=== PATIENT | female | born 1950 | race Caucasian/White ===

== ENCOUNTER 2024-12-11 14:12 | Outpatient (CLI) | payer MEDICARE, SELFPAY ==
--- OUTSIDE RECORDS SUMMARY | 2024-12-11 14:24 | XMS_ITS | Clinical Summary ---
Author Organization [facility] Address [address] [place] [address] Care Team Providers Care Baggage Porter Head Name Role Phone Ellen Rowley MD Primary Care Provider [phone] Ashwini Evangelista RN Unavailable [phone] Allergies Active Allergy Reactions Criticality Noted Date Comments Cefadroxil Headache Low 05/29/2013 Has tolerated Zosyn, Augmentin, and Ceftriaxone previously Lactose GI Upset Low 08/25/2023 Medications latanoprost 0.005 % ophthalmic solutionIndicatio ns:glaucoma Place 1 drop into both eyes nightly at bedtime. Indications: glaucoma Active timolol (TIMOPTIC) 0.5 % ophthalmic solution Place 1 drop into both eyes daily. Active atorvastatin (LIPITOR) 10 MG tabletIndications :elevated cholesterol Take 1 tablet (10 mg total) by mouth nightly at bedtime. Indications: elevated cholesterol 90 tablet 1 025 Active bisacodyl (DULCOLAX) [address] 1 suppository (10 mg total) rectally daily as needed for Constipation. 025 Active acetaminophen (TYLENOL) 325 MG tablet Take 2 tablets (650 mg total) by mouth 4 (four) times daily as needed for Pain or Fever. Active senna-docusate (SENOKOT-S) 8.6-50 MG tablet Take 2 tablets by mouth daily. Active nitroglycerin (NITROSTAT) 0.[address] 1 tablet (0.4 mg total) under the tongue every 5 (five) minutes as needed. Active lidocaine (LIDODERM) 5 % Place 1 patch onto the skin daily. Active levothyroxine (SYNTHROID) 137 MCG tablet Take 1 tablet (137 mcg total) by mouth every morning. Active ferrous sulfate, 65 mg elemental, 325 (65 FE) MG tabletIndications :Iron deficiency anemia, unspecified iron deficiency anemia type Take 1 tablet (325 mg total) by mouth 2 (two) times daily. 180 tablet 1 Active Additional Information Patient taking differently:325 mg OralDaily with breakfast, Reported on 12/09/2024 collagenase (SANTYL) ointment Apply topically daily. Active spironolactone (ALDACTONE) 25 MG tablet Take 1 tablet (25 mg total) by mouth daily. Active esomeprazole (NEXIUM) 20 MG packet Take 20 mg by mouth every morning before breakfast. Active metoprolol tartrate (LOPRESSOR) 25 MG tablet Take 1 tablet (25 mg total) by mouth 2 (two) times daily. Active apixaban (ELIQUIS) 5 MG tablet Take 1 tablet (5 mg total) by mouth 2 (two) times daily. 025 2024 Active mupirocin (BACTROBAN) 2 % ointment Apply topically 3 (three) times daily. Active ondansetron (ZOFRAN-ODT) 4 MG disintegrating tablet Take 1 tablet (4 mg total) by mouth. Active PROTONIX 40 MG packet Take 1 packet (40 mg total) by mouth before breakfast. Active nystatin (MYCOSTATIN) powderIndications :Yeast dermatitis Apply topically 3 (three) times daily. 60 g 3 Active loratadine (CLARITIN) 10 MG tabletIndications :allergies Take 1 tablet (10 mg total) by mouth daily. 90 tablet 1 024 2024 Discontinued imipramine (TOFRANIL) 25 MG tabletIndications :Esophageal spasm Take 1 tablet (25 mg total) by mouth nightly at bedtime. at bedtime 90 tablet 024 2024 Discontinued lisinopril (PRINIVIL) 40 MG tabletIndications :altered blood pressure TAKE 1 TABLET BY MOUTH EVERY DAY 90 tablet 025 2024 Discontinued benzonatate (TESSALON) 200 MG capsuleIndication s:Subacute cough Take 1 capsule (200 mg total) by mouth 3 (three) times daily as needed for Cough. 90 capsule 1 025 2024 Discontinued sodium chloride 1 GM tablet Take 1 tablet (1 g total) by mouth 3 (three) times daily. 2024 Discontinued omeprazole (PRILOSEC) 20 MG capsule Take 1 capsule (20 mg total) by mouth daily. 2024 Discontinued apixaban (ELIQUIS) 5 MG tablet Take 1 tablet (5 mg total) by mouth 2 (two) times daily. 2024 collagenase (SANTYL) ointment Apply topically daily. 2024 Discontinued dilTIAZem CD (CARDIZEM CD) 120 MG 24 hr capsule Take 1 capsule (120 mg total) by mouth daily. 2024 Discontinued furosemide (LASIX) 40 MG tablet Take 1 tablet (40 mg total) by mouth daily. 025 2024 metoprolol tartrate (LOPRESSOR) 100 MG tablet Take 1 tablet (100 mg total) by mouth 2 (two) times daily. 2024 Discontinued traZODone (DESYREL) 50 MG tablet Take 1 tablet (50 mg total) by mouth nightly as needed. 025 2024 pantoprazole EC (PROTONIX) 40 MG tablet Take 1 tablet (40 mg total) by mouth daily. 2024 Discontinued miconazole (MICOTIN) 2 % powder Apply topically 2 (two) times daily. 025 2024 Discontinued Active Problems Problem Noted Date Diagnosed Date Slow transit constipation 11/13/2024 Pacemaker 11/12/2024 Complete heart block (CMS/HCC HHS/HCC) Atrial fibrillation, unspecified type (CMS/HCC H HS/HCC) 10/30/2024 Multifocal pneumonia 10/22/2024 Hypocalcemia 10/22/2024 Skin infection at gastrostomy tube site ([facility]) 10/22/2024 Pleural effusion, bilateral 10/22/2024 Pericardial effusion ([facility]) 10/22/2024 Acute kidney injury superimposed on chronic kidn ey disease 10/22/2024 Syncope 10/14/2024 Hyponatremia 10/08/2024 Pressure injury of sacral region, unstageable Generalized weakness 10/01/2024 Anemia 10/01/2024 Moderate malnutrition ([facility]) 09/23/2024 Esophageal necrosis 09/09/2024 Difficulty swallowing 09/04/2024 Esophageal foreign body 09/04/2024 Stage 3a chronic kidney disease 05/21/2024 Stage 2 chronic kidney disease 05/21/2024 Hydronephrosis 04/05/2024 Mycobacteria, 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 Postoperative hypothyroidism 01/19/2024 Senile osteopenia 01/18/2024 Sepsis ([facility]) 10/19/2023 Pneumonia 08/21/2023 Achalasia 08/21/2023 Odynophagia 08/21/2023 Pulmonary nodule 06/09/2023 T2DM (type 2 diabetes mellitus) ([facility] ) 10/27/2022 Postmenopausal osteoporosis 12/31/2021 Colitis 05/12/2021 Recurrent urinary tract infection 05/12/2021 History of total left knee replacement (TKR) Hemorrhoids with complication 05/12/2021 Acute glaucoma of right eye 05/12/2021 Achalasia, esophageal 11/20/2020 Overview (11/20/2020): Added automatically from request for surgery [id number] Abnormal barium swallow 11/20/2020 Overview (11/20/2020): Added automatically from request for surgery [id number] Achalasia of cardia 11/20/2020 Overview (12/02/2024): Added automatically from request for surgery [id number] Graves disease 05/25/2020 Dysphagia 04/17/2020 Overview (12/02/2024): Added automatically from request for surgery [id number] Added automatically from request for surgery [id number] Added automatically from request for surgery [id number] History of total right knee replacement 08/05/19 20 Osteopenia 12/12/2017 Peripheral neuropathy 08/24/2017 Nonproliferative diabetic retinopathy ([facility] /[facility]) 05/01/2017 Lactose intolerance 12/14/2016 Primary hyperparathyroidism ([facility]) 12/14/2016 Leg swelling 11/15/2016 Osteoarthritis of knees, bilateral 02/25/2016 GERD (gastroesophageal reflux disease) 5 Hyperkalemia 06/23/2015 Urine leukocytes 02/21/2014 HTN (hypertension) 05/29/2013 Dyslipidemia, goal LDL below 100 05/29/2013 Resolved Problems Problem Noted Date Diagnosed Date Resolved Date Hyperthyroidism 11/24/2021 04/18/2022 Overview (02/19/2022): Added automatically from request for surgery [id number] Weight loss 11/20/2020 02/19/2022 Overview (11/20/2020): Added automatically from request for surgery [id number] Vitamin D deficiency 07/01/2019 022 Localized osteoporosis 08/21/201805/08 Parathyroid abnormality ([facility]) 12/14/2016 08/19/2020 Knee pain, bilateral 02/16/2016 022 Abscess 06/23/2015 02/19/2022 Diabetes mellitus ([facility]) 08/09/2013 05/08/2023 Hypercalcemia 08/09/2013 08/19/2020 Morbid obesity 05/29/2013 02/22/2021 Encounters Date Type Department Care Team Description 12/11/[address] [phone] Ellen Rowley MD Problem (Heart rate) 12/11/2024 Patient Outreach [facility] [address] [address] Ashwini Evangelista, RN Hospital Follow Up (F/u wk 2) 12/10/2024 Results Follow-Up [address] [phone] Ellen Rowley MD LIPID PANEL, COMPREHENSIVE METABOLIC PANEL 12/09/2024 11:00 AM CDT Laboratory Only [address] [phone] Ellen Rowley MD 12/09/2024 9:20 AM CDT Office Visit [address] [phone] Ellen Rowley MD Diabetes; Feeding Tube Problem (Leaking around feeding tube, wants it look at.) 12/09/2024 Travel 12/06/2024 Scan [employer] INFO SRVCS Scanned, [facility] 12/06/2024 Patient Outreach [address] [phone] Ashwini Evangelista, SANDY Hospital Follow Up (F/u wk 1--LVM x2) 12/04/[address] [phone] Ellen Rowley MD Question 12/03/[address] [phone] Ellen Rowley MD Clarification 12/02/2024 9:20 AM CDT Office Visit [address] [phone] Ellen Rowley MD TCM 12/02/[address] [phone] Ellen Rowley MD Advice 12/02/2024 Travel 12/02/2024 Patient Outreach [address] [phone] Ashwini Evangelista RN Hospital Follow Up (Inpatient f/u with [facility]) 12/01/2024 Scan [facility] INFO SRVCS Scanned, [facility] 11/29/2024 Scan [facility] INFO SRVCS Scanned, [facility] 11/29/[address] [phone] Ellen Rowley MD TCM 11/27/2024 Scan [facility] INFO SRVCS Scanned, [facility] 11/27/2024 Patient Outreach [address] [phone] Ashwini Evangelista RN Hospital Follow Up (Inpatient f/u w/[facility]); ER F/U ([facility] ER 11/26) 11/26/2024 Scan HEALTH INFO SRVCS Scanned, [facility] 11/22/2024 Patient Outreach [address] [phone] Ashwini Evangelista RN Hospital Follow Up (Inpatient f/u w/[facility]) 11/15/2024 Patient Outreach [address] [phone] Ashwini Evangelista RN Hospital Follow Up (Inpatient f/u [facility]) 11/11/2024 Patient Outreach [address] [phone] Ashwini Evangelista RN Hospital Follow Up (TRANSFERRED to [facility] ([facility] Hosp 10/30-11/09; [facility] 11/09-present)) 11/09/2024 Scan [facility] INFO SRVCS Scanned, [facility] 10/31/2024 Patient Outreach [address] [place] [address] Ashwini Evangelista, RN Hospital Follow Up ([facility] Admission notification) 10/30/2024 Scan [facility] INFO SRVCS Scanned, [facility] 10/29/2024 Scan [facility] INFO SRVCS Scanned, [facility] 10/29/2024 Patient Outreach [address] [phone] Ashwini Evangelista, RN TCM ([facility] 10/22-10/28) 10/28/2024 Scan [facility] INFO SRVCS Scanned, [facility] 10/24/[address] [phone] Ellen Rowley MD Orders 10/23/2024 Patient Outreach [address] [phone] Ashwini Evangelista, RN Hospital Follow Up ([facility] admission notification) 10/22/2024 Scan [facility] INFO SRVCS Scanned, [facility] 10/22/[address] [phone] Ellen Rowley MD Information 10/21/2024 Scan [facility] INFO SRVCS Scanned, [facility] 10/21/2024 Patient Outreach [address] [phone] Ashwini Evangelista, RN TCM ([facility] 10/04-10/07) 10/17/2024 Scan [facility] INFO SRVCS Scanned, [facility] 10/17/[address] [phone] Ellen Rowley MD TCM 10/17/[address] [phone] Ellen Rowley MD Information 10/15/2024 Patient Outreach [address] [phone] Ashwini Evangelista RN Hospital Follow Up ([facility] admission notification) 10/14/2024 Scan HEALTH INFO SRVCS Scanned, Doc Med [facility] 10/11/2024 Patient Outreach [address] [phone] Ashwini Evangelista RN Hospital Follow Up (Inpatient f/u [facility]) 09/30/2024 Patient Outreach [address] [phone] Ashwini Evangelista RN Hospital Follow Up (TRANSFERRED to [facility]) from Last 3 Months Immunizations Immunization Administration Dates Next Due Abrysvo Respiratory Syncytia l Virus (RSV) 0.5 mL, PF 07/01/2024 Arexvy Respiratory Syncytial Virus (RSV, adjuvanted) 0.5 mL, PF 05/31/2024 Fluad influenza vaccine, Raman drivalent (aIIV4), Inactivated, adjuvanted, preservative free, 0.5 mL,IM use 09/27/2024,05/09/2022 Fluzone High Dose - >Age 65 (Prefilled Syringe) 05/20/2024,04/18/2023,05/08/2022,2020,05/16/2020,06/01/2019,05/11/2018,1 08/24/2016,04/22/2016 Influenza Adult (Generic) 04/18/2023,05/2021,05/16/2020,2018,06/05/2015,08/02/2014,06/22/2013 MODERNA COVID-19 (12+), MRNA , LNP-S, PF, 50 MCG/0.5 ML (SPIKEVAX) 05/20/2024 PFIZER COVID-19 (ORIGINAL FORMULATION, PURPLE CAP) mRNA, LNP-S, PF, 30 MCG/0.3 ML DOSE 10/10/2020,09/18/2020 Pneumococcal (Pneumovax 23) 04/01/2020 Pneumococcal (Prevnar 20) 07/01/2024 Shingrix 05/20/2024,02/27/2024 Family History Medical History Relation Comments Breast Cancer Cousin Maternal; age 60 Heart Disease Father Hypertension Father No Known Problems Maternal Aunt No Known Problems Maternal Uncle Alzheimers Mother No Known Problems Paternal Aunt Diabetes Paternal Uncle Relation Status Comments Cousin Father Maternal Aunt Maternal Uncle Mother Paternal Aunt Paternal Uncle Social History Tobacco Use Types Packs/Day Years Used Date Smoking Tobacco: Never Passive Smoke Exposure: Never Smokeless Tobacco: Never Tobacco Cessation:Counseling Given: Yes Alcohol Use Standard Drinks/Week Comments No 0 (1 standard drink = 0.6 oz pur e alcohol) OASIS D0700: Social Isolation Answer Da te Recorded Frequency of experiencing loneliness or isolatio n Never 11/30/2023 OASIS A1250: Transportation Answer Date Recorded Lack of Transportation (Medical) No 11/30/2023 Lack of Transportation (Non-Medical) No 11/30/2023 Patient Unable or Declines to Respond No 11/30/2023 OASIS B1300: Health Literacy Answer Filippo e Recorded Frequency of needing help to read materials from doctor or pharmacy Never 11/30/2023 [facility] Utilities Answer Date Recorded In the past 12 months has e [employer], [employer], oil, or water [employer] threatened to shut off services in your home? No 09/05/2024 Humiliation, Afraid, Rape, and Kick questionnair e Answer Date Recorded Within the last year, have y ou been afraid of your partner or ex-partner? No 09/05/2024 Within the last year, have y ou been humiliated or emotionally abused in other ways by your partner or ex-partner? No Within the last year, have y ou been kicked, hit, slapped, or otherwise physically hurt by your partner or ex-partner? No 09/05/2024 Within the last year, have y ou been raped or forced to have any kind of sexual activity by your partner or ex-partner? No 09/05/2024 Social Connection and Isolation Panel [NHANES] A nswer Date Recorded In a typical week, how many times do you talk on the phone with family, friends, or neighbors? Once a week 10/19/19 24 How often do you get togethe r with friends or relatives? Once a week 10/19/2023 How often do you attend chur ch or spiritism services? Never 10/19/2023 Do you belong to any clubs o r organizations such as mosque groups, unions, fraternal or athletic groups, or school groups? No 10/19/2023 How often do you attend meet ings of the clubs or organizations you belong to? 1 to 4 times per year 10/19/2023 Are you , , di vorced, , never , or living with a partner? 10/19/2023 AUDIT-C Answer Date Recorded Q1: How often do you have a drink containing alcohol? Never 10/19/2023 Q2: How many drinks containi ng alcohol do you have on a typical day when you are drinking? Patient does not drink Q3: How often do you have si x or more drinks on one occasion? Never 10/19/2023 Overall Financial Resource Strain (CARDIA) Answe r Date Recorded How hard is it for you to pa y for the very basics like food, housing, medical care, and heating? Not hard at all 09/04/2024 PHQ-2 Answer Date Recorded Patient Health Questionnaire-2 Score 0 12/09/2024 [facility] [place] of Occupat ional Health - Occupational Stress Questionnaire Answer Date Recorded Do you feel stress - tense, restless, nervous, or anxious, or unable to sleep at night because your mind is troubled all the time - these days? Not at all 10/19/2023 Hunger Vital Sign Answer Date Recorded Within the past 12 months, y ou worried that your food would run out before you got the money to buy more. Never true 09/05/19 25 Within the past 12 months, t he food you bought just didn't last and you didn't have money to get more. Never true 09/05/2024 PRAPARE - Transportation Answer Date Re corded In the past 12 months, has l ack of transportation kept you from medical appointments or from getting medications? No 12/2024 In the past 12 months, has l ack of transportation kept you from meetings, work, or from getting things needed for daily living? No 09/05/2024 Housing Stability Vital Sign Answer Filippo e Recorded In the last 12 months, was t here a time when you were not able to pay the mortgage or rent on time? No 10/19/2023 In the last 12 months, how many places have you lived? 2 10/19/2023 In the last 12 months, was t here a time when you did not have a steady place to sleep or slept in a long-term (including now)? No 10/19/2023 Housing Stability Vital Sign Answer Filippo e Recorded In the last 12 months, was t here a time when you were not able to pay the mortgage or rent on time? No 09/05/2024 In the past 12 months, how m any times have you moved where you were living? 1 09/05/2024 At any time in the past 12 m [facility], were you homeless or living in a long-term (including now)? No 09/05/2024 Comments No Sex and Gender Information Value Date Recorded Sex Assigned at Female 08/27/2024 10:01 AM [facility] Legal Sex Female 4:20 PM CDT Gender Identity Not on file Sexual Orientation Not on file Last Filed Vital Signs Vital Sign Reading Time Taken Comments Blood Pressure 103/69 12/09/2024 9:08 AM CDT Pulse 95 12/09/2024 9:08 AM CDT Temperature 36.6 C (97.8 F) 12/09/2024 9:08 AM CDT Respiratory Rate 18 12/09/2024 9:08 AM CDT Oxygen Saturation 100% 12/09/2024 9:08 AM CDT Inhaled Oxygen Concentration - - Weight 64.7 kg (142 lb 11.2 oz) 12/09/2024 9:08 AM CDT Height 160 cm (5' 3 ) 09/04/2024 3:12 PM [facility] Body Mass Index 25.28 09/04/2024 3:12 PM [facility] Plan of Treatment Upcoming Encounters Date Type Department Care Team (Late st Contact Info) Description 01/20/2025 12:00 PM CDT Treatment [facility] [place] [address] Ellen Rowley MD [address] [place] [address] 03/11/2025 9:40 AM CDT Office Visit [facility] Family [facility] [address] [place] [address] Ellen Rowley MD [address] [place] [address] Health Maintenance Due Date Last Done Comments DTaP, Tdap and Td Vaccines (1 - Tdap) 1969 Annual Medicare Wellness Visit 2013 COVID-19 Vaccine ( season) 2024 05/20/2024, 05/20/2024, 04/18/2023, Additional history exists Kidney Health Evaluation 02/12/2025 02/13/2024 Diabetes: Retinopathy Eye Exam 04/15/2025 04/15/2024, 10/10/2022, 03/31/2022, Additional history exists Hemoglobin A1C 06/04/2025 12/02/2024, 08/31, 08/27/2024, Additional history exists Lipid Panel 12/09/2025 12/09/2024, 10/31, 02/15/2024, Additional history exists Hepatitis C Completed 02/22/2018 Colorectal Cancer Screening Colonoscopy (10 Years) Discontinued 07/29/2019, 07/29/2019 Zoster Vaccines Completed 05/20/2024, 02/27/2024 Pneumococcal Vaccine: 50+ Years Completed 07/01/2024, 04/01/2020 RSV Immunization or 60+ Years Completed 07/01/2024, 05/31/2024 Dexa Scan (General) Completed 07/11/2024, 05/19/2022, 09/02/2020, Additional history exists PHQ-2 (Physician [place]) Completed 12/09/2024 Meningococcal B Vaccine Aged Out No l onger eligible based on patient's age to complete this topic Meningococcal Vaccine Aged Out No venkat iris eligible based on patient's age to complete this topic RSV Immunizations Under 20 Months Aged Out No longer eligible based on patient's age to complete this topic Goals Goal Patient Goal Type Associated Problems Recent Progress Patient-Stated? Author Health - patient able to perform ADLs independently Lifestyle On track(2023 11:15 AM CDT) Neelam Garcia RN Establish Plan for Symptom Monitoring Lifestyle On track(2024 1:59 PM CDT) No Ashwini Evangelista RN Consistently take medications as Prescribed Lifestyle On track(2024 1:59 PM CDT) No Ashwini Evangelista RN Medical Devices Implanted Type Area Petal Cutter Device Identifier Shelf Expiration Date Model / Serial / Lot Knee Procedures Procedure Name Priority Date/Time Associated Diagnosis Comments COMPREHENSIVE METABOLIC PANEL Routine 12/09/2024 9:49 AM CDT Stage 3a chronic kidney disease ([facility]/HCC) LIPID PANEL Routine 12/09/2024 9:49 AM CDT Mixed hyperlipidemia COLLECTION VENOUS BLOOD VENIPUNCTURE Routine 12/09/2024 Routine general medical examination at a [facility] care facility HEMOGLOBIN, GLYCOSYLATED Routine 12/02/2024 Type 2 diabetes mellitus with stage 2 chronic kidney disease, without long-term current use of insulin ([facility]/HCC HHS/HCC) COLLECT.CAPILLARY (FNGR,HEEL,EAR) Routine 12/02/2024 Type 2 diabetes mellitus with stage 2 chronic kidney disease, without long-term current use of insulin ([facility]/HCC HHS/HCC) BONE DENSITY/DEXA Routine 07/11/2024 2:0 3 PM [facility] Age-related osteoporosis without current pathological fracture DIABETIC RETINOPATHY EXAM (POSITIVE)(SCAN ORDER) Routine 04/15/2024 COLONOSCOPY/EGD GENERIC (SCAN ORDER) Routine 07/29/2019 HEPATITIS C RNA W/ REFLX GENOTYPE Routine 02/22/2018 10:33 AM CDT from Last 3 Months or Most Recently Relevant to Health Maintenance Results * (ABNORMAL) COMPREHENSIVE METABOLIC PANEL (12/09/2024 9:49 AM CDT) Pathologist [facility] SODIUM S/P/B 139 136 - 145 MMOL/L 12/09/2024 4:14 PM CDT [facility] POTASSIUM S/P/B 5.0 3.5 - 5.1 MMOL/L 12/09/2024 4:14 PM T [facility] CHLORIDE S/P/B 101 98 - 107 MMOL/L 12/09/2024 4:14 PM CDT [facility] CO2 30.2 21 - 32 MMOL/L 12/09/2024 4:14 PM T [facility] GLUCOSE 143(H) 70 - 99 MG/DL 12/09/2024 4:14 PM CDT [facility] BUN 83(H) 7 - 18 MG/DL 12/09/2024 4:14 PM T [facility] CREATININE S/P/B 1.13(H) 0.55 - 1.02 MG/DL 12/09/2024 4:14 PM T [facility] CALCIUM S/P/B 8.6 8.4 - 10.5 MG/DL 12/09/2024 4:14 PM CDT [facility] BILIRUBIN TOTAL S/P/B 0.3 0.2 - 1.0 MG/DL 12/09/2024 4:14 PM T [facility] ALKALINE PHOSPHATASE S/P/B 290(H) 55 - 142 U/L 12/09/2024 4:14 PM T [facility] AST 54(H) 15 - 37 U/L 12/09/2024 4:14 PM CDT [facility] ALT 64(H) 14 - 59 U/L 12/09/2024 4:14 PM CDT [facility] TOTAL PROTEIN S/P/B 7.8 6.4 - 8.2 G/DL 12/09/2024 4:14 PM [facility] ALBUMIN S/P/B 3.1(L) 3.4 - 5.0 G/DL 12/09/2024 4:14 PM T [facility] ANION GAP 7.8 5 - 15 MMOL/L 12/09/2024 4:14 PM CDT [facility] Comment:REFERENCE RANGE NOT ESTABLISHED OSMOLALITY (CALC) 316 MOSM/KG 025 4:14 PM CDT [facility] Comment:REFERENCE RANGE NOT ESTABLISHED GFR ESTIMATE 50(L) >90 ML/MIN/1. 73 M2 12/09/2024 4:14 PM T [facility] GFR NOTES GFR REFERENCE S: 12/09/2024 4:14 PM CDT [facility] Comment: THE ESTIMATED GFR IS CALCULATED USING THE 2020 CKD-EPI EQUATION. THE FOLLOWING CATEGORIES FOR GRADING RENAL FUNCTION ARE RECOMMENDED BY THE INTERNATIONAL SOCIETY OF NEPHROLOGY (KDIGO 2012 CLINICAL PRACTICE GUIDELINE). G1,NORMAL OR HIGH: >89 ml/min/1.73 m2 G2,MILDLY DECREASED: 60-89 ml/min/1.73 m2 G3A,MILDLY TO MODERATELY DECREASED: 45-59 ml/min/1.73 m2 G3B,MODERATELY TO SEVERELY DECREASED: 30-44 ml/min/1.73 m2 G4,SEVERELY DECREASED: 15-29 ml/min/1.73 m2 G5,KIDNEY FAILURE: <15 ml/min/1.73 m2 12/09/2024 9:49 AM CDT Ellen Rowley MD LABORATORY Final Result [facility] [address] [place] [address], * LIPID PANEL (12/09/2024 9:49 AM CDT) CHOLESTEROL 130 <200 MG/DL 12/09/2024 4:14 PM CDT [facility] TRIGLYCERIDES 87 <150 MG/DL 12/09/2024 4:14 PM CDT [facility] HDL 52 >40 MG/DL 12/09/2024 4:14 PM CDT [facility] LDL-C 61 <100 MG/DL 12/09/2024 4:14 PM CDT [facility] VLDL CALCULATION 17 5 - 28 MG/DL 12/09/2024 4:14 PM CDT [facility] CHOL/HDL RATIO 2.5 0.0 - 4.0 12/09/2024 4:14 PM CDT [facility] LDL/HDL 1.2 0.41 - 2.13 12/09/2024 4:14 PM CDT [facility] NON HDL CHOLESTEROL 78 <140 MG/DL 12/09/2024 4:14 PM CDT [facility] [id number]|2024-12-11 14:24:00|2024-12-11 14:23:00|XMS_ITS|BKG DAEMON|External Medical Summaries|[id number]|" Encounter Summary Created on: December 11, 2024 Willow Najera : 1950 Sex: Female Author Organization [facility] Address [address] [place] [address] Care Team Providers Care Baggage Porter Head Name Role Phone Ellen Rowley MD Primary Care Provider [phone] Ashwini Evangelista RN Unavailable [phone] Reason for Visit * Reason Onset Date Comments Problem 12/11/2024 Heart rate Encounter Details Date Type Department Care Team (Late st Contact Info) Description 12/11/2024 Telephone [facility] Medical [id number] [place] [address] Ellen Rowley MD [address] [place] [address] Problem (Heart rate) Social History Tobacco Use Types Packs/Day Years Used Date Smoking Tobacco: Never Passive Smoke Exposure: Never Smokeless Tobacco: Never Alcohol Use Standard Drinks/Week Comments No 0 (1 standard drink = 0.6 oz pur e alcohol) OASIS D0700: Social Isolation Answer Da te Recorded Frequency of experiencing loneliness or isolatio n Never 11/30/2023 OASIS A1250: Transportation Answer Date Recorded Lack of Transportation (Medical) No 11/30/2023 Lack of Transportation (Non-Medical) No 11/30/2023 Patient Unable or Declines to Respond No 11/30/2023 OASIS B1300: Health Literacy Answer Filippo e Recorded Frequency of needing help to read materials from doctor or pharmacy Never 11/30/2023 [facility] Utilities Answer Date Recorded In the past 12 months has [facility] [employer], oil, or water [employer] threatened to shut off services in your home? No 09/05/2024 Humiliation, Afraid, Rape, and Kick questionnair e Answer Date Recorded Within the last year, have y ou been afraid of your partner or ex-partner? No 09/05/2024 Within the last year, have y ou been humiliated or emotionally abused in other ways by your partner or ex-partner? No Within the last year, have y ou been kicked, hit, slapped, or otherwise physically hurt by your partner or ex-partner? No 09/05/2024 Within the last year, have y ou been raped or forced to have any kind of sexual activity by your partner or ex-partner? No 09/05/2024 Social Connection and Isolation Panel [NHANES] A nswer Date Recorded In a typical week, how many times do you talk on the phone with family, friends, or neighbors? Once a week 10/19/19 How often do you get togethe r with friends or relatives? Once a week 10/19/2023 How often do you attend chur or spiritism services? Never 10/19/2023 Do you belong to any clubs o r organizations such as mosque groups, unions, fraternal or athletic groups, or school groups? No 10/19/2023 How often do you attend meet ings of the clubs or organizations you belong to? 1 to 4 times per year 10/19/2023 Are you , , di vorced, , never , or living with a partner? 10/19/2023 AUDIT-C Answer Date Recorded Q1: How often do you have a drink containing alcohol? Never 10/19/2023 Q2: How many drinks containi ng alcohol do you have on a typical day when you are drinking? Patient does not drink Q3: How often do you have si x or more drinks on one occasion? Never 10/19/2023 Overall Financial Resource Strain (CARDIA) Answe r Date Recorded How hard is it for you to pa y for the very basics like food, housing, medical care, and heating? Not hard at all 09/04/2024 PHQ-2 Answer Date Recorded Patient Health Questionnaire-2 Score 0 12/09/2024 [facility] of Occupat ional Health - Occupational Stress Questionnaire Answer Date Recorded Do you feel stress - tense, restless, nervous, or anxious, or unable to sleep at night because your mind is troubled all the time - these days? Not at all 10/19/2023 Hunger Vital Sign Answer Date Recorded Within the past 12 months, y ou worried that your food would run out before you got the money to buy more. Never true 09/05/19 25 Within the past 12 months, t he food you bought just didn't last and you didn't have money to get more. Never true 09/05/2024 PRAPARE - Transportation Answer Date Re corded In the past 12 months, has l ack of transportation kept you from medical appointments or from getting medications? No 12/2024 In the past 12 months, has l ack of transportation kept you from meetings, work, or from getting things needed for daily living? No 09/05/2024 Housing Stability Vital Sign Answer Filippo e Recorded In the last 12 months, was t here a time when you were not able to pay the mortgage or rent on time? No 10/19/2023 In the last 12 months, how many places have you lived? 2 10/19/2023 In the last 12 months, was t here a time when you did not have a steady place to sleep or slept in a long-term (including now)? No 10/19/2023 Housing Stability Vital Sign Answer Filippo e Recorded In the last 12 months, was t here a time when you were not able to pay the mortgage or rent on time? No 09/05/2024 In the past 12 months, how m any times have you moved where you were living? 1 09/05/2024 At any time in the past 12 m [facility], were you homeless or living in a long-term (including now)? No 09/05/2024 Comments No Sex and Gender Information Value Date Recorded Sex Assigned at Female 08/27/2024 10:01 AM DIRECTOR OF FAMILY SERVICE CENTER Legal Sex Female 4:20 PM CDT Gender Identity Not on file Sexual Orientation Not on file documented as of this encounter Functional Status * Are you deaf or do you have serious difficulty hearing Answer Date of Assessment Author Status No 09/04/2024 10:58 PM Vicky Davies RN Active * Are you blind or do you have serious difficulty seeing, even when wearing glasses? Answer Date of Assessment Author Status No 09/04/2024 10:58 PM Vicky Davies RN Active * Do you have serious difficulty walking or climbing stairs? Answer Date of Assessment Author Status Yes 09/04/2024 10:58 PM Vicky Davies RN Active * Do you have difficulty dressing or bathing? Answer Date of Assessment Author Status No 09/04/2024 10:58 PM Vicky Davies RN Active * Because of a physical, mental, or emotional condition, do you have difficulty doing errands alone such as visiting a doctor's office or shopping? Answer Date of Assessment Author Status No 09/04/2024 10:58 PM Vicky Daives RN Active documented as of this encounter Mental Status * Because of a physical, mental, or emotional condition, do you have serious difficulty concentrating, remembering, or making decisions? Answer Entry Date Author Status No 09/04/2024 10:58 PM Vicky Davies RN Active documented in this encounter Progress Notes * Ashwini Evangelista RN - 12/11/2024 1:51 PM CDT Follow up call completed. Note in progress Heart rate: Spouse reporting that they just left the endocrine office and was told to follow up with pcp regarding elevated heart rate. Reports she was running 108-116 in office. Reports that she hasbeen running high 90's to low 100's. Denies cp,dizziness, or palpitations. Reports that her metoprolol dose was stopped on 12/02/24. Spouse/patient questioning if she should restart medication--PLEASE ADVISE Previously taking metoprolol 25mg BID documented in this encounter Plan of Treatment Upcoming Encounters Date Type Department Care Team (Late st Contact Info) Description 01/20/2025 12:00 PM CDT Treatment [facility] Infusion Services at [facility] [address] Ellen Rowley MD [address] [place] [id number] 03/11/2025 9:40 AM CDT Office Visit [facility] Medical Group Family Medicine - [address] [place] [phone] Ellen Rowley MD [address] [place] [address] documented as of this encounter Goals Goal Patient Goal Type Associated Problems Recent Progress Patient-Stated? Author Health - patient able to perform ADLs independently Lifestyle On track(2023 11:15 AM CDT) No Neelam Saleh RN Establish Plan for Symptom Monitoring Lifestyle On track(2024 1:59 PM CDT) No Ashwini Evangelista RN Consistently take medications as Prescribed Lifestyle On track(2024 1:59 PM CDT) No Ashwini Evangelista, RN documented as of this encounter Visit Diagnoses Not on filedocumented in this encounter Additional Health Concerns Assessment Noted Time PHQ-9 Depression Total Score: 1 02/26/20 22 1:57 PM CDT documented as of this encounter Care Teams Baggage Porter Head Relationship Specialty Start Date End Date Ellen Rowley MD [address] [place] [address] PCP - General FAMILY PRACTICE 01/28/22 Ashwini Evangelista, RN [address] [facility] [address] [place] [address] Registered Nurse CARE MANAGEMENT 09/05/24 documented as of this encounter "
--- OUTSIDE RECORDS SUMMARY | 2024-12-11 14:24 | XMS_ITS | Encounter Summary ---
Author Organization [facility] Address [address] [place] [address] Care Team Providers Care Escalator Mechanic Name Role Phone Ellen Rowley MD Primary Care Provider [phone] Ashwini Evangelista RN Unavailable [phone] Encounter Details Date Type Department Care Team (Latest Contact Info) Description 12/06/2024 Scan [facility] Scanned, Doc Med Group Social History Tobacco Use Types Packs/Day Years [...] No 11/30/2023 OASIS B1300: Health Literacy Answer Fliippo e Recorded Frequency of needing help to read materials from doctor or pharmacy Never 11/30/2023 [facility] Utilities Answer Date Recorded In the past 12 months has e [employer], gas, oil, or water [employer] threatened to shut off services in your [...] often do you attend chur ch or judaism services? Never 10/19/2023 Do you belong to any clubs o r organizations such as pentecostalism groups, unions, fraternal or athletic groups, or [...] Recorded Patient Health Questionnaire-2 Score 0 12/09/2024 [facility] [place] of Occupat ional Health - Occupational Stress [...] place to sleep or slept in a nursing home (including now)? No 10/19/2023 Housing Stability Vital Sign Answer Filippo e Recorded In the last 12 months, was t here a time when you were not able to pay the mortgage or rent on time? No 09/05/2024 In the past 12 months, how m any times have you moved where you were living? 1 09/05/2024 At any time in the past 12 m [facility], were you homeless or living in a nursing home (including now)? No 09/05/2024 Comments No Sex and Gender Information Value Date Recorded Sex Assigned at Female 08/27/2024 10:01 AM TOOL DESIGN CHECKER Legal Sex Female 4:20 PM CDT Gender [...] 10:58 PM Vicky Davies RN Active * Over the past 2 weeks, how often have you been bothered by any of the following problems? Question Answer Date of Assessment Author Status Little interest or pleasure in doing things Not at all 12/09/2024 9:13 AM CDT Nii Jacobsen MA Active Feeling down, depressed, or hopeless Not at all 12/09/2024 9:13 AM CDT Vanessa Jacobsen MA Active Patient Health Questionnaire-2 Score 0 12/09/2024 9:13 AM CDT Violet Jacobsen MA Active * If you checked off any problems on this questionnaire so far, Question Answer Date of Assessment Author Status How difficult have these problems made it for you to do your work, take care of things at home, or get along with other people? Not difficult at all 12/09/2024 9:13 AM CDT Nii Jacobsen MA Active documented as of this encounter Mental Status * Because of a physical, mental, or emotional condition, do you have serious difficulty concentrating, remembering, or making decisions? Answer Entry Date Author Status No 09/04/2024 10:58 PM Vicky Davies RN Active documented in this encounter Plan of Treatment Upcoming Encounters Date Type Department Care Team (Late st Contact Info) Description 01/20/2025 12:00 PM CDT Treatment [facility] [place] [address] Ellen Rowley MD [facility] [place], [place] [id number] 03/11/2025 9:40 AM CDT [facility] Family Medicine - [place] [address] [place] [phone] Ellen Rowley MD [address] [place] [address] documented as of this encounter Goals Goal Patient Goal Type Associated Problems Recent Progress Patient-Stated? Author Health - patient able to perform ADLs independently Lifestyle On track(2023 11:15 AM CDT) No Neelam Saleh RN Establish Plan for Symptom Monitoring Lifestyle On track(2024 1:59 PM CDT) No Ashwini Evangelista RN Consistently take medications as Prescribed Lifestyle On track(2024 1:59 PM CDT) No Ashwini Evangelista, SANDY documented as of this encounter Visit Diagnoses Not on filedocumented in this encounter Additional Health Concerns Assessment Noted Time PHQ-9 Depression Total Score: 1 02/26/20 22 1:57 PM CDT documented as of this encounter Care Teams Escalator Mechanic Relationship Specialty Start Date End Date Ellen Rowley MD [address] [place] [address] PCP - General FAMILY PRACTICE 01/28/22 Ashwini Evangelista, RN [address] [facility] [address] [place] [address] Registered Nurse CARE MANAGEMENT 09/05/24 documented as of this encounter
--- OUTSIDE RECORDS SUMMARY | 2024-12-11 14:24 | XMS_ITS | Encounter Summary ---
Author Organization [facility] Address [address] [place] [address] Care Team Providers Care Chain Sales Consultant Name Role Phone Ez Saenz DO Unavailable [phone] Ashwini Evangelista RN Unavailable [phone] Cecil Beckett MD Primary Care Provider [phone] Ellen Rowley MD Primary Care Provider [phone] Ashwini Evangelista RN Unavailable [phone] Ashwini Evangelista RN Unavailable [phone] Annabel Borden RN Unavailable [phone] Ashwini Evangelista RN Unavailable [phone] Encounter Details Date Type Department Care Team (Late st Contact Info) Description 05/18/2020 Prep for Procedure [facility] One Day [facility] [place], [place] [id number] Lon Christian MD [address] [facility] [place] [address] [place] [id number] Social History Tobacco Use Types Packs/Day Years Used Date Smoking Tobacco: Never Smokeless Tobacco: Never Alcohol Use Standard Drinks/Week Comments No 0 (1 standard drink = 0.6 oz pur e alcohol) AUDIT-C Answer Date Recorded Frequency of Alcohol Consumption Never 06/19/2019 Average Number of Drinks Not on file 019 Frequency of Binge Drinking Not on file 06/01 PHQ-2 Answer Date Recorded PHQ-2 Score 0 08/29/2019 Comments No Sex and Gender Information Value Date Recorded Sex Assigned at Female 08/27/2024 10:01 AM SUPERVISOR AIRCRAFT MAINTENANCE Legal Sex Female 4:20 PM CDT Gender Identity Not on file Sexual Orientation Not on file COVID-19 Exposure Response Date Recorded In the last month, have you been in contact with someone who was confirmed or suspected to have Coronavirus / COVID-19? No / Unsure 05/21/2020 6:52 AM CDT documented as of this encounter Plan of Treatment Upcoming Encounters Date Type Department Care Team (Late st Contact Info) Description 01/20/2025 12:00 PM CDT Treatment [facility] [place] [address] Ellen Rowley MD [address] [place], [place] [id number] 03/11/2025 9:40 AM CDT Office Visit [facility] Medical Group Family Medicine - [place] [address] [place] [address] Ellen Rowley MD [address] [place], [place] [phone] documented as of this encounter Results * PRE-SURGICAL/PRE-PROCEDURE CORONAVIRUS (COVID 19) (05/18/2020 11:58 AM CDT) Pathologist [facility] CORONAVIRUS SARS COV 2 PCR (RESP) NOT DETECTED NOT DETECTED 05/19/2020 6:21 PM CDT [facility] Comment: A Not Detected (negative) test result for this test means that SARS- CoV-2 RNA was not present in the specimen above the limit of detection. A negative result does not rule out the possibility of COVID-19 and should not be used as the sole basis for treatment or patient management decisions. If COVID-19 is still suspected, based on exposure history together with other clinical findings, re-testing should be considered in consultation with public health authorities. Laboratory test results should always be considered in the context of clinical observations and epidemiological data in making a final diagnosis and patient management decisions. Please review the Fact Sheets and FDA authorized labeling available for health care providers and patients using the following websites: https://[email or web address]/home/Covid-19/HCP/NAAT/fact-sheet2 https://[email or web address]/home/Covid-19/Patients/NAAT/ fact-sheet2 This test has been authorized by the FDA under an Emergency Use Authorization (EUA) for use by authorized laboratories. Due to the current public health emergency, [facility] is receiving a high volume of samples from a wide variety of swabs and media for COVID-19 testing. In order to serve patients during this public health crisis, samples from appropriate clinical sources are being tested. Negative test results derived from specimens received in non-commercially manufactured viral collection and transport media, or in media and sample collection kits not yet authorized by FDA for COVID-19 testing should be cautiously evaluated and the patient potentially subjected to extra precautions such as additional clinical monitoring, including collection of an additional specimen. Methodology: Nucleic Acid Amplification Test (NAAT) includes RT-PCR or TMA Additional information about COVID-19 can be found at the [facility] website: www.[employer].MyClean/Covid19. Test performed at [facility] [id number] [place] [phone] Director: RIDGE HARRIS DO,MPH FIRST TEST YES 05/18/2020 2:27 PM CDT [facility] EMPLOYED IN HEALTHCARE NO 05/18/2020 2:27 PM CDT [facility] SYMPTOMATIC DEFINED BY CDC NO 05/18/2020 2:27 PM CDT [facility] DATE OF SYMPTOM ONSET NO 05/18/2020 2:47 PM CDT [facility] HOSPITALIZATION STATUS NO 05/18/2020 2:27 PM CDT [facility] PATIENT IN ICU NO 05/18/2020 2:27 PM CDT [facility] RESIDENT OF [facility] UNKNOWN 05/18/2020 2:27 PM CDT [facility] UNKNOWN 05/18/2020 2:47 PM CDT [facility] PATIENT'S RACE WHITE OR 05/18/2020 2:27 PM CDT [facility] ETHNICITY NONHISPANIC 05/18/2020 2:27 PM CDT [facility] SOURCE (QST) NASOPHARYNGEAL SWAB 05/18/2020 2:27 PM CDT [facility] NASOPHARYNGEAL SWAB / Unknown 05/18/2020 11:58 AM CDT us Lon Christian MD MICROBIOLOGY - GENERAL ORDERABLE S Final Result Performing Organization Address City/State/[facility] Co de Phone Number [facility] [address] [place] [address], [facility] [id number] [place] [address], documented in this encounter Visit Diagnoses Diagnosis Dysphagia- Primary Dysphagia, unspecified documented in this encounter Additional Health Concerns Infection Onset Date Last Indicated Resolved Time COVID-19 Rule Out 05/18/2020 05/18/2020 05/19/2020 6:21 PM CDT COVID-19 Rule Out 11/11/2020 11/11/2020 11/11/2020 2:22 PM CDT COVID-19 Rule Out 11/11/2020 11/11/2020 11/11/2020 7:50 PM CDT COVID-19 Confirmed 11/11/2020 11/11/2020 12:34 AM CDT COVID-19 Rule Out 08/22/2023 08/22/2023 08/22/2023 9:05 AM SUPERVISOR AIRCRAFT MAINTENANCE Tuberculosis Rule-Out 08/22/2023 08/22/20232023 3:50 PM SUPERVISOR AIRCRAFT MAINTENANCE COVID-19 Rule Out 10/19/2023 10/19/2023 10/19/2023 10:09 AM CDT COVID-19 Rule Out 10/19/2023 10/19/2023 10/19/2023 2:22 PM CDT COVID-19 Rule Out 10/20/2023 10/20/2023 10/20/2023 5:06 PM CDT Rhinovirus 10/20/2023 10/20/2023 10/30/2023 12:3 2 AM CDT COVID-19 Rule Out 11/17/2023 11/17/2023 11/17/2023 1:22 PM CDT documented as of this encounter Care Teams Chain Sales Consultant Relationship Specialty Start Date End Date Ez Saenz DO PCP - Med Group - [facility] Attributed Provider 09/28/18 07/31/20 Cecil Beckett MD [address] [facility] [address] [place], [place] [id number] PCP - General FAMILY PRACTICE 09/06/19 01/27/22 Ellen Rowley MD [address] [place] [address] PCP - General FAMILY PRACTICE 01/28/22 Ashwini Evangelista, RN [address] [facility] [address] [place] [address] Day Care Aide (Ambulatory) REGISTERED NURSE 08/09/19 Ashwini Evangelista, RN [address] [facility] [address] [place] [address] Registered Nurse CARE MANAGEMENT 08/22/23 09/20/23 Ashwini Evangelista RN [address] [facility] [address] [place] [address] Registered Nurse CARE MANAGEMENT 10/23/23 11/05/23 Annabel Borden, RN [address] [place] [address] Day Care Aide (Ambulatory) REGISTERED NURSE 04/05/24 Ashwini Evangelista, RN [address] [address] Registered Nurse CARE MANAGEMENT 09/05/24 documented as of this encounter
--- OUTSIDE RECORDS SUMMARY | 2024-12-11 14:24 | XMS_ITS | Encounter Summary ---
Author Organization [facility] Healthcare Address [address] [place] [address] Care Team Providers Care Ground Control Approach Technician Name Role Phone Ellen Rowley MD Primary Care Provider [phone]- [phone] Encounter Details Date Type Department Care Team (Late st Contact Info) Description 11/11/2024 Results Follow-Up [facility] Medical [facility] Post Acute Care [address] [phone] Jacob Cardona MD [address] [place] [id number] Social History Tobacco Use Types Packs/Day Years Used Date Smoking Tobacco: Never Passive Smoke Exposure: Never Smokeless Tobacco: Never Alcohol Use Standard Drinks/Week Comments Not Currently 0 (1 standard drink = 0.6 oz pur e alcohol) [facility] Utilities Answer Date Recorded In the past 12 months has [employer], [employer], oil, or water [facility] [facility] threatened to shut off services in your home? No 10/31/2024 Social Connection and Isolat ion Panel [NHANES] Answer Date Recorded In a typical week, how many times do you talk on the phone with family, friends, or neighbors? More than three times a week 10/31/2024 How often do you get togethe r with friends or relatives? More than three times a week 10/31/2024 How often do you attend chur ch or mormon services? Never 10/31/2024 Do you belong to any clubs o r organizations such as shinto groups, unions, fraternal or athletic groups, or school groups? No 10/31/2024 How often do you attend meet ings of the clubs or organizations you belong to? Never 10/31/2024 Are you , , di vorced, , never , or living with a partner? 10/31/2024 AUDIT-C Answer Date Recorded Q1: How often do you have a drink containing alcohol? Never 10/31/2024 Q2: How many drinks containi ng alcohol do you have on a typical day when you are drinking? Patient does not drink Q3: How often do you have si x or more drinks on one occasion? Never 10/31/2024 Overall Financial Resource Strain (CARDIA) Answe r Date Recorded How hard is it for you to pa y for the very basics like food, housing, medical care, and heating? Not hard at all 10/31/2024 PHQ-2 Answer Date Recorded PHQ-2 Total Score (If total score is 3 or more points, staff should administer the PHQ-9) 0 10/31/2024 Hunger Vital Sign Answer Date Recorded Within the past 12 months, y ou worried that your food would run out before you got the money to buy more. Never true 11/01/19 25 Within the past 12 months, t he food you bought just didn't last and you didn't have money to get more. Never true 10/31/2024 PRAPARE - Transportation Answer Date Re corded In the past 12 months, has l ack of transportation kept you from medical appointments or from getting medications? No 09/2024 In the past 12 months, has l ack of transportation kept you from meetings, work, or from getting things needed for daily living? No 10/31/2024 PHQ-9 Answer Date Recorded PHQ-9 Total Score 2 10/31/2024 Housing Stability Vital Sign Answer Filippo e Recorded In the last 12 months, was t here a time when you were not able to pay the mortgage or rent on time? No 11/05/2024 In the past 12 months, how m any times have you moved where you were living? 0 11/05/2024 At any time in the past 12 m [facility], were you homeless or living in a long-term (including now)? No 11/05/2024 Personal Safety Answer Date Recorded Have you ever been in or are you currently in a harmful physical or emotional relationship or is someone making you feel afraid or unsafe? 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 Note to follow. documented in this encounter Plan of Treatment Not on file documented as of this encounter Visit Diagnoses Not on filedocumented in this encounter Care Teams Ground Control Approach Technician Relationship Specialty Start Date End Date Ellen Rowley MD [address] [place] [address] PCP - General Family Medicine 02/09/22 documented as of this encounter
--- OUTSIDE RECORDS SUMMARY | 2024-12-11 14:24 | XMS_ITS | Encounter Summary ---
Author Organization [facility] Healthcare Address [address] [place] [address] Care Team Providers Care Manager Commercial Real Estate Name Role Phone Ellen Rowley MD Primary Care Provider [phone]- [phone] Encounter Details Date Type Department Care Team (Late st Contact Info) Description 10/14/2024 Results Follow-Up [facility] Post Acute Care [address] [phone] Jacob Cardona MD [address] [place] [id number] Social History Tobacco Use Types Packs/Day Years Used Date Smoking Tobacco: Never Passive Smoke Exposure: Never Smokeless Tobacco: Never Alcohol Use Standard Drinks/Week Comments Not Currently 0 (1 standard drink = 0.6 oz pur e alcohol) [facility] Utilities Answer Date Recorded In the past 12 months has [employer], [employer], oil, or water [employer] threatened to shut off services in your home? No 10/15/2024 Social Connection and Isolat ion Panel [NHANES] Answer Date Recorded In a typical week, how many times do you talk on the phone with family, friends, or neighbors? More than three times a week 10/15/2024 How often do you get togethe r with friends or relatives? More than three times a week 10/15/2024 How often do you attend chur ch or scientologist services? Never 10/15/2024 Do you belong to any clubs o r organizations such as zoroastrian groups, unions, fraternal or athletic groups, or school groups? No 10/15/2024 How often do you attend meet ings of the clubs or organizations you belong to? Never 10/15/2024 Are you , , di vorced, , never , or living with a partner? 10/15/2024 AUDIT-C Answer Date Recorded Q1: How often do you have a drink containing alcohol? Never 06/30/2023 Q2: How many drinks containi ng alcohol do you have on a typical day when you are drinking? Patient does not drink Q3: How often do you have si x or more drinks on one occasion? Never 06/30/2023 Overall Financial Resource Strain (CARDIA) Answe r Date Recorded How hard is it for you to pa y for the very basics like food, housing, medical care, and heating? Not hard at all 10/15/2024 PHQ-2 Answer Date Recorded PHQ-2 Total Score 1 10/17/2024 Hunger Vital Sign Answer Date Recorded Within the past 12 months, y ou worried that your food would run out before you got the money to buy more. Never true 10/16/19 Within the past 12 months, t he food you bought just didn't last and you didn't have money to get more. Never true 10/15/2024 PRAPARE - Transportation Answer Date Re corded In the past 12 months, has l ack of transportation kept you from medical appointments or from getting medications? No 09/28 In the past 12 months, has l ack of transportation kept you from meetings, work, or from getting things needed for daily living? No 10/15/2024 PHQ-9 Answer Date Recorded PHQ-9 Total Score 2 10/17/2024 Housing Stability Vital Sign Answer Filippo e Recorded In the last 12 months, was t here a time when you were not able to pay the mortgage or rent on time? No 10/15/2024 In the past 12 months, how m any times have you moved where you were living? 0 10/15/2024 At any time in the past 12 m [facility], were you homeless or living in a long term (including now)? No 10/15/2024 Personal Safety Answer Date Recorded Have you ever been in or are you currently in a harmful physical or emotional relationship or is someone making you feel afraid or unsafe? Denies 10/14/2024 Comments Unknown Sex and Gender Information Value Date Recorded Sex Assigned at Not on file Legal Sex Female 5:32 PM MANAGER ENVIRONMENTAL SERVICES Gender Identity Not on file Sexual Orientation Not on file documented as of this encounter Miscellaneous Notes * Result Encounter Note - Jacob Cardona MD - 10/14/2024 3:42 PM CDT Today's lab reviewed. Patient sent to ER, note to follow documented in this encounter Plan of Treatment Not on file documented as of this encounter Visit Diagnoses Not on filedocumented in this encounter Additional Health Concerns Infection Onset Date Last Indicated Resolved Time COVID: Suspected 10/22/2024 10/22/2024 10/22/2024 2:04 PM CDT COVID: Suspected 10/30/2024 10/30/2024 10/30/2024 9:30 PM CDT documented as of this encounter Care Teams Manager Commercial Real Estate Relationship Specialty Start Date End Date Ellen Rowley MD [address] [place] [address] PCP - General Family Medicine 02/09/22 documented as of this encounter
--- OUTSIDE RECORDS SUMMARY | 2024-12-11 14:24 | XMS_ITS | Clinical Summary ---
Author Organization [facility] Address [address] [place] [address] Care Team Providers Care Cosmetic Account Coordinator Name Role Phone Ellen Rowley MD Primary Care Provider [phone] Source Comments [facility] and Associated Physician Practices is amultiple site organization consisting of ambulatory clinics and hospital sitesin [place], [place], [place] and [place]. This disclosure is being madepursuant to the Care Everywhere program and may not contain all information available regarding this patient. Last updated 18.[facility] Early[employer]ares Allergies Active Allergy Reactions Criticality Noted Date Comments Cefadroxil Headache 09/09/2024 Has tolerated zosyn, augmentin, and ceftriaxone in the past Lactose GI Discomfort 09/09/2024 Medications * Be aware that medications may not be up to date on this document. Alwaysverify current medications with the patient. bisacodyl (Dulcolax) 10 MG suppository Insert 1 (one) suppository into the rectum once daily as needed for Constipation 5 Active latanoprost (Xalatan) 0.005 % ophthalmic solution Instill 1 (one) drop into both eyes at bedtime 5 Active timolol maleate (Timoptic) 0.5 % ophthalmic solution Instill 1 (one) drop into both eyes every morning 5 Active pantoprazole (Protonix) 40 MG packet Take 1 (one) packet by mouth once daily 60 packet 2 09/27/2024 12:10 PM PACKAGE CAR DRIVER 5 Active levothyroxine (Synthroid) 112 MCG tablet 1 (one) tablet by Enteral Tube route once daily 30 tablet 09/27/2024 12:10 PM PACKAGE CAR DRIVER 5 Active acetaminophen (Tylenol) 325 MG tablet Take 2 (two) tablets by mouth every 4 hours as needed for Fever or Pain Maximum allowable Acetaminophen amount = 4 Grams (4000 mg) / 24 hours. Active traZODone (Desyrel) 50 MG tablet Take 1 (one) tablet by mouth at bedtime Active melatonin 1 MG tablet Take 5 (five) tablets by mouth at bedtime Active apixaban (Eliquis) 5 MG tablet Take 1 (one) tablet by mouth 2 times daily Active ondansetron (Zofran) 4 MG tablet Take 1 (one) tablet by mouth every 6 hours as needed for Nausea/Vomiting Active ferrous sulfate 325 (65 FE) MG tablet Take 1 (one) tablet by mouth once daily Active metoprolol tartrate IR (Lopressor) 25 MG tablet Take 1 (one) tablet by mouth 2 times daily Active spironolactone (Aldactone) 25 MG tablet Take 1 (one) tablet by mouth once daily Active furosemide (Lasix) 20 MG tablet Take 1 (one) tablet by mouth once daily Active atorvastatin (Lipitor) 10 MG tablet Take 1 (one) tablet by mouth at bedtime Active lidocaine (Lidoderm) 5 % patch Apply 1 (one) patch to skin once daily Apply patch to most painful area and remove after 12 hours. May reapply a new patch 12 hours later. 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 Achalasia 09/09/2024 T2DM (type 2 diabetes mellitus) 09/09/2024 HTN (hypertension) 09/09/2024 Encounters Date Type Department Care Team Description 5 1:00 PM CDT Office Visit [facility] [address] [place] [phone] Roland Miller MD Achalasia (Primary Dx); Moderate protein-calorie malnutrition (HCC) 5 1:00 PM CDT - 5 2:30 PM CDT Surgery [facility] [address] [place] [phone] Procedure, Nursing G_I GASTRIC MOTILITY STUDY 5 12:13 PM CDT - 5 1:56 PM CDT Hospital Encounter [facility] CYNTHIA OP [address] [place] [phone] Xavi Weathers MD Surgery General Discharge Disposition: Home or Self Care 5 Travel 5 Telephone [facility] [address] [place] [phone] Roland Miller MD Appointment 5 Telephone [facility] [address] [place] [address] [address] [place] [address] Roland Miller MD Appointment (R/s) 5 Telephone [facility] [address] [place] [phone] Redd Gaspar RN Scheduling Outreach (Esophageal manometry scheduling attempt x2) 5 Telephone [facility] [address] [place] [address] Redd Gaspar RN Scheduling Outreach (Esophageal manometry scheduling attempt x1) 5 Orders Only [facility] - Cardiothoracic Surgery [address] [facility], [place] [address] Roney Beltran MD 5 3:57 PM PACKAGE CAR DRIVER Anesthesia Event [facility] [address] [place] [phone] Robert Ahumada MD Blackshear, Steven, DO 5 1:20 PM PACKAGE CAR DRIVER - 5 4:40 PM PACKAGE CAR DRIVER Surgery [facility] OP [address] [place] [address] Roney Beltran MD Esophagogastroduodenoscopy (EGD) 5 3:02 PM PACKAGE CAR DRIVER - 5 2:33 PM PACKAGE CAR DRIVER Hospital Encounter [facility] 8N ACUTE [address] [place] [address] Jerel Ceja MD Morreale, MD Jessica Chiu III, Kento, MD Raza, Awais, MD Veeramachane ni, Nirmal K, MD Gastroenterology Discharge Disposition: Nursing Home Facility from Last 3 Months Immunizations Immunization Administration Dates Next Due INFLUENZA VACCINE, ADJUVANTE D, QUADR. (FLUAD QUADRIVALENT; 65Y+) (AIIV4) 09/27/2024 Social History Tobacco Use Types Packs/Day Years Used Date Smoking Tobacco: Never Smokeless Tobacco: Never Tobacco Cessation:Counseling Given: Not Answered Comments:edwige Alcohol Use Standard Drinks/Week Comments Not Currently 0 (1 standard drink = 0.6 oz pur e alcohol) AUDIT-C Answer Date Recorded Q1: How often do you have a drink containing alcohol? Patient unable to answer 09/09/2024 Q2: How many drinks containi ng alcohol do you have on a typical day when you are drinking? Patient unable to answer Q3: How often do you have si x or more drinks on one occasion? Patient unable to answer 09/09/2024 Overall Financial Resource Strain (CARDIA) Answe r Date Recorded How hard is it for you to pa y for the very basics like food, housing, medical care, and heating? Not very hard 09/10/2024 [facility] [place] [facility] Occupat ional Health - Occupational Stress Questionnaire Answer Date Recorded Do you feel stress - tense, restless, nervous, or anxious, or unable to sleep at night because your mind is troubled all the time - these days? Patient unable to answer 09/10/2024 Hunger Vital Sign Answer Date Recorded Within the past 12 months, y ou worried that your food would run out before you got the money to buy more. Never true 09/10/19 25 Within the past 12 months, t he food you bought just didn't last and you didn't have money to get more. Never true 09/10/2024 PRAPARE - Transportation Answer Date Re corded In the past 12 months, has l ack of transportation kept you from medical appointments or from getting medications? No 08/31 In the past 12 months, has l ack of transportation kept you from meetings, work, or from getting things needed for daily living? No 09/10/2024 Housing Stability Vital Sign Answer Filippo e Recorded In the last 12 months, was t here a time when you were not able to pay the mortgage or rent on time? No 09/10/2024 Number of Times Moved in the Last Year Not on fi le 09/10/2024 At any time in the past 12 m [facility], were you homeless or living in a custodial (including now)? No 09/10/2024 Comments Unknown Sex and Gender Information Value Date Recorded Sex Assigned at Not on file Legal Sex Female 10:45 PM PACKAGE CAR DRIVER Gender Identity Not on file Sexual Orientation Not on file Last Filed Vital Signs Vital Sign Reading Time Taken Comments Blood Pressure 98/55 09/27/2024 11:28 AM PACKAGE CAR DRIVER Pulse 77 09/27/2024 11:28 AM PACKAGE CAR DRIVER Temperature 36.9 C (98.4 F) 09/27/2024 11:28 AM PACKAGE CAR DRIVER Respiratory Rate 20 12/06/2024 1:00 PM CDT Oxygen Saturation 100% 09/27/2024 11:28 AM PACKAGE CAR DRIVER Inhaled Oxygen Concentration 21% 09/11/2024 1 1:37 AM PACKAGE CAR DRIVER Weight 65.3 kg (144 lb) 12/06/2024 1:00 PM CDT Height 160 cm (5' 3 ) 12/06/2024 1:00 PM CDT Body Mass Index 25.51 12/06/2024 1:00 PM CDT Plan of Treatment Upcoming Encounters Date Type Department Care Team (Late st Contact Info) Description 01/03/2025 10:00 AM CDT Office Visit [facility] [address] [place] [address] [address] [place] [address] Roland Miller MD [address] [place] [address] [address] [place] [phone] Health Maintenance Due Date Last Done Comments HEPATITIS C SCREENING 05/01/1968 DTAP/TDAP/TD VACCINES (1 - Tdap) 1967 PNEUMOCOCCAL VACCINE 50+ (1 of 2 - PCV) 1967 ZOSTER VACCINE (1 of 2) 1998 Respiratory Syncytial Virus (RSV) Vaccine Pt: or over 60 yrs (1 - 1-dose 75+ series) 2023 COVID-19 VACCINE (3 - season) 2024 10/10/2020, 09/18/2020 DEPRESSION SCREENING 07/31/2024 MEDICARE AWV CALENDAR YEAR 2024 DIABETES RETINOPATHY SCREENING 09/09/2024 DIABETES-FOOT EXAM WITH MONOFILAMENT 09/09/2024 DIABETES-HGB A1C 06/04/2025 12/02/2024, 05/2025, 08/27/2024, Additional history exists DIABETES-SERUM CREATININE 10/25/20252024, 10/15/2024, 09/27/2024, Additional history exists DIABETES - URINE PROTEIN SCREENING 10/30/2025 10/30/2024, 02/13/2024 BONE DENSITY TESTING Completed 07/11/2024, 05/19/2022, 09/02/2020, Additional history exists INFLUENZA VACCINE Completed 09/27/2024, , 04/10/2023, Additional history exists HEPATITIS B VACCINE Aged Out No longe r eligible based on patient's age to complete this topic HIB VACCINE Aged Out No longer eligi ble based on patient's age to complete this topic HPV VACCINE Aged Out No longer eligi ble based on patient's age to complete this topic MENINGOCOCCAL (Group B) VACCINE SHARED DECISION-MAKING Aged Out No longer eligible based on patient's age to complete this topic MENINGOCOCCAL GROUPS A/C/Y/W VACCINE Aged Out No longer eligible based on patient's age to complete this topic Procedures Procedure Name Priority Date/Time Associated Diagnosis Comments MOTILITY STUDY, ESOPHAGEAL Routine 11/29/2024 1:56 PM CDT Achalasia IN ESOPHAGUS MOTILITY STUDY 11/29/2024 1:16 PM CDT Achalasia PREPARE RBC LEUKOREDUCED UNIT Routine 09/27/2024 1:17 AM PACKAGE CAR DRIVER PREPARE RBC LEUKOREDUCED UNIT Routine 09/27/2024 1:17 AM PACKAGE CAR DRIVER CBC W/O DIFFERENTIAL AM Draw 09/27/2024 1:08 AM PACKAGE CAR DRIVER RENAL FUNCTION PANEL AM Draw 09/27/2024 1:08 AM PACKAGE CAR DRIVER MAGNESIUM BLOOD AM Draw 09/27/2024 1:08 AM PACKAGE CAR DRIVER CBC W/O DIFFERENTIAL AM Draw 09/26/2024 12:52 AM PACKAGE CAR DRIVER PREALBUMIN Routine 09/26/2024 12:52 AM PACKAGE CAR DRIVER RENAL FUNCTION PANEL AM Draw 09/26/2024 12:52 AM PACKAGE CAR DRIVER MAGNESIUM BLOOD AM Draw 09/26/2024 12:52 AM PACKAGE CAR DRIVER RENAL FUNCTION PANEL AM Draw 09/25/2024 2:05 AM PACKAGE CAR DRIVER MAGNESIUM BLOOD AM Draw 09/25/2024 2:05 AM PACKAGE CAR DRIVER ENDOTRACHEAL TUBE NOTE Routine 09/24/2024 4:20 PM PACKAGE CAR DRIVER IN LAP MYOTOMY, HELLER 09/24/2024 3:27 PM PACKAGE CAR DRIVER Achalasia Special Needs SUPINEENDOSCOPIC VIDEO CART, advanced laparoscopic tray IN EGD ENDOSCOPIC STENT PLACE 09/24/2024 3:27 PM PACKAGE CAR DRIVER Achalasia Special Needs SUPINEENDOSCOPIC VIDEO CART, advanced laparoscopic tray GLUCOSE - POINT OF CARE Routine 09/24/2024 12:17 PM PACKAGE CAR DRIVER CBC W AUTO DIFFERENTIAL Routine 09/24/2024 3:43 AM PACKAGE CAR DRIVER Preop examination RENAL FUNCTION PANEL AM Draw 09/24/2024 3:43 AM PACKAGE CAR DRIVER MAGNESIUM BLOOD AM Draw 09/24/2024 3:43 AM PACKAGE CAR DRIVER HGB HCT PANEL Routine 09/23/2024 12:11 PM PACKAGE CAR DRIVER TRANSFUSE RED BLOOD CELL LEUKOREDUCED UNIT(S) Routine 09/23/2024 8:24 AM PACKAGE CAR DRIVER BLOOD TYPE VERIFICATION Routine 09/23/2024 6:44 AM PACKAGE CAR DRIVER TRANSFERRIN Routine 09/23/2024 6:44 AM PACKAGE CAR DRIVER TYPE + SCREEN PANEL STAT 09/23/2024 5 :55 AM PACKAGE CAR DRIVER HGB HCT PANEL STAT 09/23/2024 3:59 AM PACKAGE CAR DRIVER PREALBUMIN Routine 09/23/2024 12:45 AM PACKAGE CAR DRIVER CBC W/O DIFFERENTIAL AM Draw 09/23/2024 12:45 AM PACKAGE CAR DRIVER TRIGLYCERIDES BLOOD Routine 09/23/2024 12:45 AM PACKAGE CAR DRIVER RENAL FUNCTION PANEL AM Draw 09/23/2024 12:45 AM PACKAGE CAR DRIVER MAGNESIUM BLOOD AM Draw 09/23/2024 12:45 AM PACKAGE CAR DRIVER RENAL FUNCTION PANEL AM Draw 09/22/2024 1:24 AM PACKAGE CAR DRIVER MAGNESIUM BLOOD AM Draw 09/22/2024 1:24 AM PACKAGE CAR DRIVER RENAL FUNCTION PANEL AM Draw 09/21/2024 1:03 AM PACKAGE CAR DRIVER MAGNESIUM BLOOD AM Draw 09/21/2024 1:03 AM PACKAGE CAR DRIVER RENAL FUNCTION PANEL AM Draw 09/20/2024 1:26 AM PACKAGE CAR DRIVER MAGNESIUM BLOOD AM Draw 09/20/2024 1:26 AM PACKAGE CAR DRIVER CALCIUM IONIZED WHOLE BLOOD AM Draw 09/19/2024 12:10 AM PACKAGE CAR DRIVER RENAL FUNCTION PANEL AM Draw 09/19/2024 12:10 AM PACKAGE CAR DRIVER MAGNESIUM BLOOD AM Draw 09/19/2024 12:10 AM PACKAGE CAR DRIVER POTASSIUM BLOOD STAT 09/18/2024 10:11 AM PACKAGE CAR DRIVER EKG 12-LEAD Routine 09/18/2024 9:49 AM PACKAGE CAR DRIVER Esophageal necrosis POTASSIUM BLOOD Routine 09/18/2024 8:46 AM PACKAGE CAR DRIVER CALCIUM IONIZED WHOLE BLOOD AM Draw 09/18/2024 1:16 AM PACKAGE CAR DRIVER RENAL FUNCTION PANEL AM Draw 09/18/2024 1:16 AM PACKAGE CAR DRIVER MAGNESIUM BLOOD AM Draw 09/18/2024 1:16 AM PACKAGE CAR DRIVER GLUCOSE - POINT OF CARE Routine 09/17/2024 4:27 PM PACKAGE CAR DRIVER GLUCOSE - POINT OF CARE Routine 09/17/2024 12:05 PM PACKAGE CAR DRIVER GLUCOSE - POINT OF CARE Routine 09/17/2024 8:10 AM PACKAGE CAR DRIVER RENAL FUNCTION PANEL AM Draw 09/17/2024 2:21 AM PACKAGE CAR DRIVER MAGNESIUM BLOOD AM Draw 09/17/2024 2:21 AM PACKAGE CAR DRIVER CALCIUM IONIZED WHOLE BLOOD AM Draw 09/17/2024 2:04 AM PACKAGE CAR DRIVER IR PICC LINE INSERT Routine 09/16/2024 2 :50 PM PACKAGE CAR DRIVER Esophageal necrosis CALCIUM IONIZED WHOLE BLOOD AM Draw 09/16/2024 5:34 AM PACKAGE CAR DRIVER CBC W AUTO DIFFERENTIAL AM Draw 09/16/2024 5:34 AM PACKAGE CAR DRIVER RENAL FUNCTION PANEL AM Draw 09/16/2024 5:34 AM PACKAGE CAR DRIVER MAGNESIUM BLOOD AM Draw 09/16/2024 5:34 AM PACKAGE CAR DRIVER CALCIUM IONIZED WHOLE BLOOD AM Draw 09/15/2024 10:26 AM PACKAGE CAR DRIVER CBC W AUTO DIFFERENTIAL AM Draw 09/15/2024 10:26 AM PACKAGE CAR DRIVER RENAL FUNCTION PANEL AM Draw 09/15/2024 10:26 AM PACKAGE CAR DRIVER MAGNESIUM BLOOD AM Draw 09/15/2024 10:26 AM PACKAGE CAR DRIVER FERRITIN Routine 09/14/2024 5:21 AM PACKAGE CAR DRIVER IRON + TRANSFERRIN PANEL Routine 09/14/2024 5:21 AM PACKAGE CAR DRIVER PREALBUMIN Routine 09/14/2024 5:21 AM PACKAGE CAR DRIVER CALCIUM IONIZED WHOLE BLOOD AM Draw 09/14/2024 5:21 AM PACKAGE CAR DRIVER CBC W AUTO DIFFERENTIAL AM Draw 09/14/2024 5:21 AM PACKAGE CAR DRIVER RENAL FUNCTION PANEL AM Draw 09/14/2024 5:21 AM PACKAGE CAR DRIVER MAGNESIUM BLOOD AM Draw 09/14/2024 5:21 AM PACKAGE CAR DRIVER RENAL FUNCTION PANEL AM Draw 09/13/2024 6:04 AM PACKAGE CAR DRIVER MAGNESIUM BLOOD AM Draw 09/13/2024 6:04 AM PACKAGE CAR DRIVER CALCIUM IONIZED WHOLE BLOOD AM Draw 09/13/2024 6:03 AM PACKAGE CAR DRIVER CBC W AUTO DIFFERENTIAL AM Draw 09/13/2024 6:03 AM PACKAGE CAR DRIVER HEMOGLOBIN A1C Routine 09/10/2024 2:04 AM PACKAGE CAR DRIVER from Last 3 Months or Most Recently Relevant to Health Maintenance Results * Motility Study, Esophageal (11/29/2024 1:56 PM CDT) Narrative [facility] - 11/29/2024 1:56 PM CDT Xavi Weathers MD 12/03/2024 11:33 AM GI Physiology Note Ms. Najera attended [facility] for high resolution esophageal manometry. Please see media tab for full report and interpretation. Please note that the physical written reports are scanned to [facility] and can take 24-48 hours to be available to view.It was a pleasure participating in your patient's care. Please feel free to contact me if you have any questions or if I can be of any further assistance to your patients. Sincerely, Xavi Weathers MD PhD Professor of Internal Medicine Director of Neurogastroenterology & Motility Division of Gastroenterology and Hepatology Teaching physician attestation and verification: I attest that I have personally reviewed this patient's GI physiology results with Dr Bauer, GI fellow. I have participated in medical decision making (or other relevant process) for this service as noted above. us Jerel Ceja MD GI PROCEDURE ORDERABLES Samantha l Result [facility] * PREPARE (CROSSMATCH) RBC UNIT(S), 1 Units (09/27/2024 1:17 AM PACKAGE CAR DRIVER) Only the most recent of2 resultswithin the time period is included. Pathologist [facility] Unit Description N/A [facility] BLOOD BANK LAB Blood Bank BLOOD SPECIMEN / Unknown 09/23/2024 6:06 AM PACKAGE CAR DRIVER us Roney Tolentino MD LAB - BLOOD BANK EMERITA العلي Final Result [facility] BLOOD BANK LAB [address] [place] [address], [place] [phone] * (ABNORMAL) CBC W/O DIFFERENTIAL (09/27/2024 1:08 AM PACKAGE CAR DRIVER) Only the most recent of3 resultswithin the time period is included. WBC 6.9 4.0 - 10.7 x10E9/L 09/27/2024 1:47 AM [facility] RBC Count 2.47(L) 3.90 - 5.20 x10E12/L 09/27/2024 1:47 AM [facility] Hemoglobin 8.1(L) 11.9 - 15.8 g/dL 09/27/2024 1:47 AM [facility] Hematocrit 25.0(L) 34.8 - 46.1 % 09/27/2024 1:47 AM [facility] MCV 101.2(H) 80.0 - 98.0 fL 09/27/2024 1:47 AM [facility] MCH 32.8 26.7 - 33.6 pg 09/27/2024 1:47 AM [facility] MCHC 32.4 31.7 - 36.3 g/dL 09/27/2024 1:47 AM [facility] RDW-CV 14.6 11.3 - 14.8 % 09/27/2024 1:47 AM [facility] Platelet Count 275 150 - 420 x10E9/L 09/27/2024 1:47 AM [facility] MPV 10.3 7.8 - 11.4 fL 09/27/2024 1:47 AM [facility] Blood BLOOD SPECIMEN / Unknown Lab Venipuncture / Unknown 09/27/2024 1:08 AM PACKAGE CAR DRIVER 09/27/2024 1:33 AM [facility] us Julieta Johnston CORPORATE OFFICER-PUBLISHER ASSISTANT LAB - HEMATOLOGY ORDERABL ES Final Result Performing Organization Address City/State/[facility] Co de Phone Number [facility] [address] [place] [phone], [facility] [phone] * (ABNORMAL) RENAL FUNCTION PANEL (09/27/2024 1:08 AM [facility]) Only the most recent of15 resultswithin the time period is included. BUN 32(H) 7 - 26 mg/dL 09/27/2024 2:00 AM [facility] Creatinine 0.62 0.56 - 0.96 mg/dL 09/27/2024 2:00 AM [facility] Sodium 134(L) 136 - 145 mmol/L 09/27/2024 2:00 AM [facility] Potassium 4.9(H) 3.5 - 4.5 mmol/L 09/27/2024 2:00 AM [facility] Chloride 104 98 - 107 mmol/L 09/27/2024 2:00 AM [facility] CO2 23 22 - 29 mmol/L 09/27/2024 2:00 AM [facility] Glucose 111(H) 70 - 99 mg/dL 09/27/2024 2:00 AM [facility] Albumin 2.1(L) 3.4 - 5.0 g/dL 09/27/2024 2:00 AM [facility] Calcium 8.4 8.4 - 10.2 mg/dL 09/27/2024 2:00 AM [facility] Phosphorus 2.8(L) 2.9 - 5.1 mg/dL 09/27/2024 2:00 AM [facility] Anion Gap 7 6 - 16 09/27/2024 2:00 AM [facility] BUN/Creatinine Ratio >50(H) 7 - 23 09/27/2024 2:00 AM [facility] Osmolality Calculated 286 275 - 295 mOsm/kg 09/27/2024 2:00 AM [facility] eGFR by CKD-EPI >90 >=90 mL/min/1.7 3 m2 09/27/2024 2:00 AM [facility] Blood BLOOD SPECIMEN / Unknown Lab Venipuncture / Unknown 09/27/2024 1:08 AM [facility] 09/27/2024 1:33 AM [facility] us Jerel Ceja MD LAB - CHEMISTRY ORDERABLES F inal Result [facility] [address] [place] [address], [facility] [phone] * MAGNESIUM BLOOD (09/27/2024 1:08 AM [facility]) Only the most recent of15 resultswithin the time period is included. Magnesium 1.7 1.6 - 2.6 mg/dL 09/27/2024 2:00 AM PACKAGE CAR DRIVER [facility] Blood BLOOD SPECIMEN / Unknown Lab Venipuncture / Unknown 09/27/2024 1:08 AM PACKAGE CAR DRIVER 09/27/2024 1:33 AM PACKAGE CAR DRIVER us Jerel Ceja MD LAB - CHEMISTRY ORDERABLES F inal Result Performing Organization Address City/[facility]/ZIP Co de Phone Number [address] [address], [facility] [phone] * PREALBUMIN (09/26/2024 12:52 AM PACKAGE CAR DRIVER) Only the most recent of3 resultswithin the time period is included. Prealbumin 16 16 - 45 mg/dL 09/26/2024 1:55 AM PACKAGE CAR DRIVER [facility] Blood BLOOD SPECIMEN / Unknown Lab Venipuncture / Unknown 09/26/2024 12:52 AM PACKAGE CAR DRIVER 09/26/2024 1:21 AM PACKAGE CAR DRIVER us Julieta Johnston CORPORATE OFFICER-PUBLISHER ASSISTANT LAB - CHEMISTRY ORDERABLE S Final Result Performing Organization Address [facility] Co de Phone Number [address] [address], [facility] [phone] * ETT LINE PERFORMABLE (09/24/2024 4:20 PM PACKAGE CAR DRIVER) Narrative Bill Freire DO - 09/24/2024 4:20 PM PACKAGE CAR DRIVER Bill Freire DO 09/24/2024 4:23 PM Endotracheal Tube Placement: Patient Location: OR. Intubation Event Date/Time: 09/24/2024 4:17 PM Procedure: intubation ([id number]) Procedure Section: Sedation: under general anesthesia. Indications for Airway Management: anesthesia Procedure pretreatments used? No Induction: standard IV Patient Position: sniffing and supine Mask Ventilation: easy. Blade Type: Kristal Blade Size: 3 Laryngoscopy View: grade 2 (partial cords) Intubation Adjuncts: stylet and cricoid pressure Tube: endotracheal tube Placement: oral Tube type: cuff - inflated Tube Size (MM): 8 Depth of Insertion (CM): 21 Measured From: teeth Cuff Inflated With: air Number of Attempts: 2. Ventilation between attempts: Yes. Placement Verified By: direct visualization, bilateral breath sounds, chest auscultation and CO2 monitor Tube secured with: adhesive tape. Dentition unchanged? Yes Difficult Airway? No. Procedure Start Time: 09/24/2024 4:17 PM. Staff Section Anesthesia Provider: Darron Martines MD, Performed the procedure Additional Comments: Anterior. us Darron Martines MD GENERAL ANESTHESIA ORDERABLES Final Result * (ABNORMAL) GLUCOSE - POINT OF CARE (09/24/2024 12:17 PM PACKAGE CAR DRIVER) Only the most recent of4 resultswithin the time period is included. Pathologist [facility] Glucose WB/POC 155(H) 70 - 99 mg/dL 09/24/2024 3:34 PM [facility] Specimen Type Cap Fingerstick 2024 3:34 PM [facility] Blood BLOOD SPECIMEN / Unknown 09/24/2024 12:17 PM PACKAGE CAR DRIVER 09/24/2024 3:34 PM PACKAGE CAR DRIVER us Roney Tolentino MD LAB - POINT OF CARE O RDERABLES Final Result [address] [address], [facility] [phone] * (ABNORMAL) CBC W AUTO DIFFERENTIAL (09/24/2024 3:43 AM PACKAGE CAR DRIVER) Only the most recent of5 resultswithin the time period is included. [facility] WBC 5.7 4.0 - 10.7 x10E9/L 09/24/2024 4:41 AM [facility] RBC Count 2.46(L) 3.90 - 5.20 x10E12/L 09/24/2024 4:41 AM [facility] Hemoglobin 8.1(L) 11.9 - 15.8 g/dL 09/24/2024 4:41 AM [facility] Hematocrit [id number]|2024-12-11 14:24:00|2024-12-11 14:24:00|XMS_ITS|BKG DAEMON|External Medical Summaries|[id number]|" Clinical Summary Created on: December 11, 2024 Willow Najera : 1950 Sex: Female Author Organization [facility] Address [address] [place] [address] Care Team Providers Care Cosmetic Account Coordinator Name Role Phone Unavailable Primary Care Provider Unavailabl e Social History Tobacco Use Types Packs/Day Years Used Date Smoking Tobacco: Never Assessed Comments Unknown Sex and Gender Information Value Date Recorded Sex Assigned at Not on file Legal Sex Female 11:01 AM PACKAGE CAR DRIVER Gender Identity Not on file Sexual Orientation Not on file Plan of Treatment Health Maintenance Due Date Last Done Comments DEXA Bone Density 1948 Hepatitis C Virus (HCV) Screening 1950 TdaP Immunization 1948 Colonoscopy 1993 Colorectal Cancer Screening 1993 Cologuard 1998 Immunochemical Fecal Occult Blood 1998 Zoster Immunization (1 of 2) 1998 Pneumococcal Immunization (50+ years) (2 of 2 - PCV) 04/01/2021 04/01/2020 Respiratory Syncytial Virus (RSV) Immunization (Adult) (1 - 1-dose 75+ series) 2023 Influenza Immunization (#1) 03/31/202404/30, 06/01/2019, 05/11/2018, Additional history exists SARS-COV-2 Immunization ( season) 2024 Pneumococcal Immunization Combined Discontinued 04/01/2020 Hepatitis B Immunization Aged Out No longer eligible based on patient's age to complete this topic Meningococcal Immunization (ACWY) Aged Out No longer eligible based on patient's age to complete this topic Rotavirus Immunization Aged Out No lo nger eligible based on patient's age to complete this topic "
--- OUTSIDE RECORDS SUMMARY | 2024-12-11 14:24 | XMS_ITS | Encounter Summary ---
Author Organization [facility] Address [address] [place] [address] Care Team Providers Care Senior Net Engineer Name Role Phone Ellen Rowley MD Primary Care Provider [phone] Reason for Visit * Reason Onset Date Comments Care Management Other 09/10/2024 Initial as sessment/verify face sheet information Encounter Details Date Type Department Care Team (Late st Contact Info) Description 09/10/2024 Telephone [facility] CARE COORDINATION [address] [place] [phone] Mary Ellen Solis, RN Care Management Other (Initial assessment/verify face sheet information) Social History Tobacco Use Types Packs/Day Years Used Date Smoking Tobacco: Never Smokeless Tobacco: Never Comments:edwige AUDIT-C Answer Date Recorded Q1: How often [...] care, and heating? Not very hard 09/10/2024 [facility] [place] of Occupat ional Health - Occupational Stress [...] any time in the past 12 m [facility], were you homeless or living in a usp (including now)? No 09/10/2024 Comments Unknown Sex and Gender Information Value Date Recorded Sex Assigned at Not on file Legal Sex Female 10:45 PM RESEARCH HOME ECONOMIST Gender Identity Not on file Sexual Orientation Not on file documented as of this encounter Functional Status * Is person deaf or have serious hearing difficulty? Answer Date of Assessment Author No 09/09/2024 3:15 PM Jose Quinteros RN * Is person blind or have serious difficulty seeing? Answer Date of Assessment Author No 09/09/2024 3:15 PM Jose Quinteros RN * Does person have serious difficulty walking/climbing stairs? Answer Date of Assessment Author No 09/09/2024 3:15 PM Jose Quinteros RN * Does person have difficulty dressing/bathing? Answer Date of Assessment Author No 09/09/2024 3:15 PM Jose Quinteros RN * Does person have difficulty doing errands alone? Answer Date of Assessment Author No 09/09/2024 3:15 PM Jose Quinteros RN documented as of this encounter Mental Status * Does person have difficulty concentrating/remembering/making decisions? Answer Entry Date Author No 09/09/2024 3:15 PM RESEARCH HOME ECONOMIST Jose Locke RN documented in this encounter Plan of Treatment Upcoming Encounters Date Type Department Care Team (Late st Contact Info) Description 01/03/2025 10:00 AM CDT Office Visit [facility] [address] [place] [address] Roland Miller MD [address] [place] [phone] documented as of this encounter Visit Diagnoses Not on filedocumented in this encounter Care Teams Senior Net Engineer Relationship Specialty Start Date End Date Ellen Rowley MD [address] [place] [address] PCP - General Family Medicine 07/31/24 documented as of this encounter
--- OUTSIDE RECORDS SUMMARY | 2024-12-11 14:24 | XMS_ITS | Encounter Summary ---
Author Organization [facility] Address [address] [place] [address] Care Team Providers Care Supervisor Rough End Name Role Phone Cecil Beckett MD Primary Care Provider [phone] Ellen Rowley MD Primary Care Provider [phone] Ashwini Evangelista RN Unavailable [phone] Ashwini Evangelista RN Unavailable +[phone] Annabel Borden RN Unavailable [phone] Ashwini Evangelista RN Unavailable [phone] Encounter Details Date Type Department Care Team (Late st Contact Info) Description 12/31/2021 Therapy Plan [facility] Medical Group Diabetes and Endocrinology - [address] [address] [place] [address] [address] Social History Tobacco Use Types Packs/Day Years Used Date Smoking Tobacco: Never Smokeless Tobacco: Never Alcohol Use Standard Drinks/Week Comments No 0 (1 standard drink = 0.6 oz pur e alcohol) AUDIT-C Answer Date Recorded Frequency of Alcohol Consumption Never 06/19/2019 Average Number of Drinks Not on file 019 Frequency of Binge Drinking Not on file 06/01 PHQ-2 Answer Date Recorded PHQ-2 Score - If the patient scores above 3, please move on to questions 3-9 0 12/31/2021 Comments No Sex and Gender Information Value Date Recorded Sex Assigned at Female 08/27/2024 10:01 AM BINGO MANAGER Legal Sex Female 4:20 PM CDT Gender Identity Not on file Sexual Orientation Not on file COVID-19 Exposure Response Date Recorded In the last 10 days, have yo u been in contact with someone who was confirmed or suspected to have Coronavirus/COVID-19? No / Unsure 01/03/2022 3:43 PM CDT documented as of this encounter Functional Status * Calculated C-SSRS Risk Score (Lifetime/Recent) Answer Date of Assessment Author Status No Risk Indicated 01/03/2022 3:44 PM CDT Dolores Hilario RN Active * [place] Suicide Severity Rating Scale (Screener/Recent Self-Report) Question Answer Date of Assessment Author Status 1. Wish to be (Past 1 Month) No 01/03/2022 3:44 PM CDT Kristy Hilario RN Act leann 2. Non-Specific Active Suicidal Thoughts (Past 1 Month) No 01/03/2022 3:44 PM CDT Kristy Hilario RN Act leann 6. Suicidal Behavior (Lifetime) No 01/03/2022 3:44 PM CDT Kristy Hilario RN Act leann documented as of this encounter Plan of Treatment Upcoming Encounters Date Type Department Care Team (Late st Contact Info) Description 01/20/2025 12:00 PM CDT Treatment [facility] [place] [address] Ellen Rowley MD [facility] [place] [address] 03/11/2025 9:40 AM CDT Office Visit [facility] Medical Group Family Medicine - [place] [address] [place] [phone] Ellen Rowley MD [facility] [place] [address] documented as of this encounter Visit Diagnoses Not on filedocumented in this encounter Additional Health Concerns Infection Onset Date Last Indicated Resolved Time COVID-19 Rule Out 08/22/2023 08/22/2023 08/22/2023 9:05 AM BINGO MANAGER Tuberculosis Rule-Out 08/22/2023 08/22/20232023 3:50 PM BINGO MANAGER COVID-19 Rule Out 10/19/2023 10/19/2023 10/19/2023 10:09 AM CDT COVID-19 Rule Out 10/19/2023 10/19/2023 10/19/2023 2:22 PM CDT COVID-19 Rule Out 10/20/2023 10/20/2023 10/20/2023 5:06 PM CDT Rhinovirus 10/20/2023 10/20/2023 10/30/2023 12:3 2 AM CDT COVID-19 Rule Out 11/17/2023 11/17/2023 11/17/2023 1:22 PM CDT Assessment Noted Time PHQ-9 Depression Total Score: 0 10/02/19 10:12 AM BINGO MANAGER documented as of this encounter Care Teams Supervisor Rough End Relationship Specialty Start Date End Date Cecil Beckett MD PCP - General FAMILY PRACTICE 09/06/19 01/27/22 Ellen Rowley MD [address] [place] [address] PCP - General FAMILY PRACTICE 01/28/22 Ashwini Evangelista RN [address] [facility] [address] [place] [address] Registered Nurse CARE MANAGEMENT 08/22/23 09/20/23 Ashwini Evangelista RN [address] [facility] [address] [place] [address] Registered Nurse CARE MANAGEMENT 10/23/23 11/05/23 Annabel Borden RN [address] [place] [address] Log Sorting Supervisor (Ambulatory) REGISTERED NURSE 04/05/24 Ashwini Evangelista, RN [address] [facility] [address] [place] [address] Registered Nurse CARE MANAGEMENT 09/05/24 documented as of this encounter
--- OUTSIDE RECORDS SUMMARY | 2024-12-11 14:24 | XMS_ITS | Encounter Summary ---
Author Organization [facility] Address [address] [place] [address] Care Team Providers Care Medical Assistant Dermatology Name Role Phone Ashwini Evangelista RN Unavailable [phone] Cecil Beckett MD Primary Care Provider [phone] Ellen Rowley MD Primary Care Provider [phone] Ashwini Evangelista RN Unavailable [phone] Ashwini Evangelista RN Unavailable +[phone] Annabel Borden RN Unavailable [phone] Ashwini Evangelista RN Unavailable [phone] Encounter Details Date Type Department Care Team (Late st Contact Info) Description 11/13/2020 Prep for Procedure [facility]-Ad[facility] [place] [address] Cecil Beckett MD [address] [address] Social History Tobacco Use Types Packs/Day Years [...] Sex Assigned at Female 08/27/2024 10:01 AM CLINICAL NURSE EDUCATOR Legal Sex Female 4:20 PM CDT Gender Identity Not on file Sexual Orientation Not on file COVID-19 Exposure Response Date Recorded In the last month, have you been in contact with someone who was confirmed or suspected to have Coronavirus / COVID-19? No / Unsure 11/13/2020 12:35 PM CDT documented as of this encounter Plan of Treatment Upcoming Encounters Date Type Department Care Team (Late st Contact Info) Description 01/20/2025 12:00 PM CDT Treatment [facility] [place] [address] Ellen Rowley MD [address] [place] [address] 03/11/2025 9:40 AM CDT Office Visit [facility] Medical Group Family Medicine - [place] [address] [place] [address] Ellen Rowley MD [address] [place] [address] documented as of this encounter Visit Diagnoses Diagnosis Preoperative testing- Primary Preoperative examination, unspecified documented in this encounter Additional Health Concerns Infection Onset Date Last Indicated Resolved Time COVID-19 Confirmed 11/11/2020 11/11/2020 12:34 AM CDT COVID-19 Rule Out 08/22/2023 08/22/2023 08/22/2023 9:05 AM CLINICAL NURSE EDUCATOR Tuberculosis Rule-Out 08/22/2023 08/22/20232023 3:50 PM CLINICAL NURSE EDUCATOR COVID-19 Rule Out 10/19/2023 10/19/2023 10/19/2023 10:09 AM CDT COVID-19 Rule Out 10/19/2023 10/19/2023 10/19/2023 2:22 PM CDT COVID-19 Rule Out 10/20/2023 10/20/2023 10/20/2023 5:06 PM CDT Rhinovirus 10/20/2023 10/20/2023 10/30/2023 12:3 2 AM CDT COVID-19 Rule Out 11/17/2023 11/17/2023 11/17/2023 1:22 PM CDT documented as of this encounter Care Teams Medical Assistant Dermatology Relationship Specialty Start Date End Date Cecil Beckett MD [address] [place] [address] PCP - General FAMILY PRACTICE 09/06/19 01/27/22 Ellen Rowley MD [address] [place] [address] PCP - General FAMILY PRACTICE 01/28/22 Ashwini Evangelista, RN [address] [place], [place] [phone] Loom Control Chain Builder (Ambulatory) REGISTERED NURSE 08/09/19 Ashwini Evangelista, RN [address] [place] [address] Registered Nurse CARE MANAGEMENT 08/22/23 09/20/23 Ashwini Evangelista RN [address] [place] [address] Registered Nurse CARE MANAGEMENT 10/23/23 11/05/23 Annabel Borden, RN [address] [place] [address] Loom Control Chain Builder (Ambulatory) REGISTERED NURSE 04/05/24 Ashwini Evangelista, RN [address] [place] [address] Registered Nurse CARE MANAGEMENT 09/05/24 documented as of this encounter
--- OUTSIDE RECORDS SUMMARY | 2024-12-11 14:24 | XMS_ITS | Encounter Summary ---
Author Organization [facility] Address [address] [place] [address] Care Team Providers Care Project Economist Name Role Phone Ellen Rowley MD Primary Care Provider [phone] Ashwini Evangelista RN Unavailable [phone] Encounter Details Date Type Department Care Team (Latest Contact Info) Description 12/10/2024 Results Follow-Up [facility] Medical [facility] Family Medicine [facility] [address] [place] [address] Ellen Rowley MD [address] [place] [address] LIPID PANEL, COMPREHENSIVE METABOLIC PANEL Social History Tobacco Use Types Packs/Day Years [...] doctor or pharmacy Never 11/30/2023 [facility] Utilities Answer Date Recorded In the past 12 months has e [employer], [employer], oil, or water [employer] threatened to shut off services in your [...] How often do you attend chur or yarsani services? Never 10/19/2023 Do you belong to any clubs o r organizations such as latter-day groups, unions, fraternal or athletic groups, or [...] Recorded Patient Health Questionnaire-2 Score 0 12/09/2024 [facility] [place] of Occupat ional Health - Occupational Stress [...] place to sleep or slept in a assisted (including now)? No 10/19/2023 Housing Stability Vital Sign Answer Filippo e Recorded In the last 12 months, was t here a time when you were not able to pay the mortgage or rent on time? No 09/05/2024 In the past 12 months, how m any times have you moved where you were living? 1 09/05/2024 At any time in the past 12 m [facility], were you homeless or living in a assisted (including now)? No 09/05/2024 Comments No Sex and Gender Information Value Date Recorded Sex Assigned at Female 08/27/2024 10:01 AM BINDER TECHNICIAN Legal Sex Female 4:20 PM CDT Gender [...] 10:58 PM Vicky Davies RN Active documented as of this encounter [...] Info) Description 01/20/2025 12:00 PM CDT Treatment [facility] [place] [address] Ellen Rowley MD [address] [place] [address] 03/11/2025 9:40 AM CDT Office Visit [facility] Medical [facility] Family Medicine - [place] [address] [place] [phone] Ellen Rowley MD [facility] [place] [address] documented as of this encounter Goals Goal Patient Goal Type Associated Problems Recent Progress Patient-Stated? Author Health - patient able to perform ADLs independently Lifestyle On track(2023 11:15 AM CDT) Neelam Garcia RN Establish Plan for Symptom Monitoring Lifestyle On track(2024 1:59 PM CDT) No Ashwini Evangelista RN Consistently take medications as Prescribed Lifestyle On track(2024 1:59 PM CDT) No Ashwini Evangelista RN documented as of this encounter Visit Diagnoses Not on filedocumented in this encounter Additional Health Concerns Assessment Noted Time PHQ-9 Depression Total Score: 1 02/26/20 22 1:57 PM CDT documented as of this encounter Care Teams Project Economist Relationship Specialty Start Date End Date Ellen Rowley MD [address] [place] [address] PCP - General FAMILY PRACTICE 01/28/22 Ashwini Evangelista, RN [address] [facility] [address] [place] [address] Registered Nurse CARE MANAGEMENT 09/05/24 documented as of this encounter
--- OUTSIDE RECORDS SUMMARY | 2024-12-11 14:24 | XMS_ITS | Clinical Summary ---
Author Organization Unknown Care Team Providers Care Bed Control Specialist Name Role Phone DIYA DAHL, CURT Unavailable Unavailable LILIYA RN, LLUVIA Unavailable Unavailable MERLE WASHINGTONN, LAMIN Unavailable Unavailable NEUMAYER PT, TESS Unavailable Unavailable [employer] S[employer]ET[employer] INVESTIGATOR/CAUSE ANALYST, JERRY Unavailable Unavail able MAURETTO OT, PLASENCIA ARABELLE Unavailable Unavai lable LUPCHO YULISA/GAINES, AMADO Unavailable Unavaila ble SHANELLE ST, TERE Unavailable Unavailable Payers Payer Name Policy Type Policy Number Effective Date Expira tion Date [id number] Problems Condition Name Condition Details Condition Category Status Onset Date Resolution Date Last Treatment Date Treating Clinician Comments ACUTE RESPIRATORY FAILURE WITH HYPOXIA Active 11-26 00:00: 00 UNSPECIFIED ATRIAL FIBRILLATION Active 11-26 00:00: 00 EMPHYSEMA, UNSPECIFIED Active 11-26 00:00: 00 MODERATE PROTEIN-ZAHRAA RENETTA MALNUTRITION Active 11-26 00:00: 00 HYP HRT AND CHR KDNY DIS W HRT FAIL AND STG 1-4/UNSP CHR KDNY Active 11-26 00:00: 00 ACUTE ON CHRONIC DIASTOLIC (CONGESTIVE) HEART FAILURE Active 11-26 00:00: 00 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 KIDNEY DISEASE Active 11-26 00:00: 00 CHRONIC KIDNEY DISEASE, STAGE 3B Active 11-26 00:00: 00 ANEMIA IN CHRONIC KIDNEY DISEASE Active 11-26 00:00: 00 PRESSURE ULCER OF [place], STAGE 3 Active 11-26 00:00: 00 ACUTE RESPIRATORY FAILURE WITH HYPERCAPNIA Active 11-26 00:00: 00 ATRIOVENTRIC ULAR BLOCK, COMPLETE Active 11-26 00:00: 00 HYPO-OSMOLAL ITY AND HYPONATREMIA Active 11-26 00:00: 00 PULMONARY HYPERTENSION , UNSPECIFIED Active 11-26 00:00: 00 ACHALASIA OF CARDIA Active 11-26 00:00: 00 DYSPHAGIA, PHARYNGOESOP HAGEAL PHASE Active 11-26 00:00: 00 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 11-26 00:00: 00 TYPE 2 DIAB WITH MILD NONP RTNOP WITHOUT MACULAR EDEMA, UNSP Active 11-26 00:00: 00 PRIMARY GENERALIZED (OSTEO)ARTHR ITIS Active 11-26 00:00: 00 PULMONARY MYCOBACTERIA L INFECTION Active 11-26 00:00: 00 TYPE 2 DIABETES MELLITUS WITH DIABETIC POLYNEUROPAT HY Active 11-26 00:00: 00 HYPERLIPIDEM IA, UNSPECIFIED Active 11-26 00:00: 00 AGE-RELATED OSTEOPOROSIS W/O CURRENT PATHOLOGICAL FRACTURE Active 11-26 00:00: 00 VITAMIN D DEFICIENCY, UNSPECIFIED Active 11-26 00:00: 00 OBSTRUCTIVE SLEEP APNEA (ADULT) (PEDIATRIC) Active 11-26 00:00: 00 UNSPECIFIED GLAUCOMA Active 11-26 00:00: 00 PRIMARY HYPERPARATHY ROIDISM Active 11-26 00:00: 00 SLOW TRANSIT CONSTIPATION Active 11-26 00:00: 00 POSTPROCEDUR AL HYPOTHYROIDI SM Active 11-26 00:00: 00 GASTRO-ESOPH AGEAL REFLUX DISEASE WITHOUT ESOPHAGITIS Active 11-26 00:00: 00 DIAPHRAGMATI C HERNIA WITHOUT OBSTRUCTION OR GANGRENE Active 11-26 00:00: 00 OBESITY, UNSPECIFIED Active 11-26 00:00: 00 MCC (CURRENT) USE OF ANTICOAGULAN TS Active 11-26 00:00: 00 ENCOUNTER FOR ATTN TO OTH ARTIF OPENINGS OF DIGESTIVE TRACT Active 11-26 00:00: 00 PERSONAL HISTORY OF COVID-19 Active 1- 00:00: 00 PRESENCE OF CARDIAC PACEMAKER Active 11-26 00:00: 00 PRESENCE OF ARTIFICIAL KNEE JOINT, BILATERAL Active 07-31 00:00: 00 BODY MASS INDEX [BMI] 24.0-24.9, ADULT Active 11-26 00:00: 00 Allergies, Adverse Reactions, Alerts Allergy Name Allergy Type Status Severity Reaction(s) Onset Date Inactive Date Treating Clinician Comments NO KNOWN ALLERGIES Propensity to adverse reactions Active 12-04 16:29: 45 Medications Ordered Medication Name Filled Medication Name Start Date Stop Date Current Medication? Ordering Clinician Indication Dosage Frequency Signature (SIG) Comments Components latanoprost 0.005 % eye drops -13 00:00: 00 12-03 00:00 :00 No [id number] GLAUCOMA Per instruc tions AT BEDTIME Per instructio ns AT BEDTIME (route: ophthalmic (eye)) Med Classific ation: Ophthalmi c Agents levothyroxi ne 112 mcg tablet 09-27 00:00: 00 10-21 00:00 :00 No [id number] Per instruc tions Per instructio ns (route: oral) Med Classific ation: Endocrine Protonix 40 mg granules delayed-rel ease packet 09-27 00:00: 00 10-21 00:00 :00 No [id number] Per instruc tions Per instructio ns (route: oral) Med Classific ation: Gastroint estinal Therapy Agents pantoprazol e 40 mg tablet,navarro yed release 09-26 00:00: 00 10-21 00:00 :00 No [id number] Per instruc tions EVERY DAY Per instructio ns EVERY DAY (route: oral) Med Classific ation: Gastroint estinal Therapy Agents atorvastati n 10 mg tablet 2-19 00:00: 00 12-03 00:00 :00 No [id number] CHOLESTEROL 1 tablet NIGHTLY AT BEDTIME 1 tablet NIGHTLY AT BEDTIME (route: oral) Med Classific ation: Cardiovas cular Therapy Agents acetaminoph en 325 mg tablet 24 00:00: 00 12-03 00:00 :00 No [id number] PAIN 2 tablet EVERY 4 HOURS 2 tablet EVERY 4 HOURS (route: oral) Med Classific ation: Analgesic , Anti-infl ammatory or Antipyret ic bisacodyl 10 mg rectal suppository 10-21 00:00: 00 12-03 00:00 :00 No [id number] CONSTIPATIO N 1 supposi tory, rectal DAILY 1 suppositor y, rectal DAILY (route: rectal) Med Classific ation: Gastroint estinal Therapy Agents levothyroxi ne 137 mcg capsule 10-21 00:00: 00 12-03 00:00 :00 No [id number] THYROID 1 capsule DAILY 1 capsule DAILY (route: oral) Med Classific ation: Endocrine lidocaine 5 % topical patch 10-21 00:00: 00 12-03 00:00 :00 No [id number] LEFT KNEE 1 adhesiv e patch, medicat ed EVERY 12 HOURS 1 adhesive patch, medicated EVERY 12 HOURS (route: topical) Med Classific ation: Dermatolo gical NovaSource Renal 2 Nazario 0.09 gram-2 kcal/mL oral liquid 10-21 00:00: 00 12-03 00:00 :00 No [id number] SUPPLEMENT Per instruc tions DIRECTED Per instructio ns DIRECTED (route: oral) Med Classific ation: Electroly te Balance-N utritiona l Products omeprazole 20 mg capsule,del ayed release 10-21 00:00: 00 10-29 00:00 :00 No [id number] GERD 1 capsule DAILY 1 capsule DAILY (route: oral) Med Classific ation: Gastroint estinal Therapy Agents Senna with Docusate Sodium 8.6 mg-50 mg tablet 10-21 00:00: 00 Yes [id number] CONSTIPATIO N 2 tablet BEDTIME 2 tablet BEDTIME (route: oral) Med Classific ation: Gastroint estinal Therapy Agents sodium chloride 1,000 mg soluble tablet 10-21 00:00: 00 12-03 00:00 :00 No [id number] SUPPLEMENT 1 tablet 3 TIMES DAILY 1 tablet 3 TIMES DAILY (route: miscellane ous) Med Classific ation: Electroly te Balance-N utritiona l Products Timoptic Ocudose (PF) 0.5 % eye drops in a dropperette 3-24 00:00: 00 Yes [id number] GLAUCOMA 1 dropper ette DAILY 1 dropperett e DAILY (route: ophthalmic (eye)) Med Classific ation: Ophthalmi c Agents diltiazem CD 120 mg capsule,ext ended release 24 hr 10-29 00:00: 00 12-03 00:00 :00 No [id number] AFIB 1 capsule DAILY 1 capsule DAILY (route: oral) Med Classific ation: Cardiovas cular Therapy Agents Eliquis 5 mg tablet 10-29 00:00: 00 12-03 00:00 :00 No [id number] BLOOD THINNER/MING B 1 tablet 2 TIMES DAILY 1 tablet 2 TIMES DAILY (route: oral) Med Classific ation: Hematolog ical Agents ferrous sulfate 325 mg (65 mg iron) tablet 10-29 00:00: 00 12-03 00:00 :00 No [id number] SUPPLEMENT 1 tablet DAILY 1 tablet DAILY (route: oral) Med Classific ation: Electroly te Balance-N utritiona l Products furosemide 40 mg tablet 10-29 00:00: 00 12-03 00:00 :00 No [id number] FLUID OVERLOAD 1 tablet DAILY 1 tablet DAILY (route: oral) Med Classific ation: Cardiovas cular Therapy Agents imipramine 25 mg tablet 10-29 00:00: 00 12-03 00:00 :00 No [id number] MOOD 1 tablet BEDTIME 1 tablet BEDTIME (route: oral) Med Classific ation: Central Nervous System Agents Lopressor 100 mg tablet 10-29 00:00: 00 12-03 00:00 :00 No [id number] HIGH BLOOD PRESSURE 1 tablet 2 TIMES DAILY 1 tablet 2 TIMES DAILY (route: oral) Med Classific ation: Cardiovas cular Therapy Agents pantoprazol e 40 mg tablet,navarro yed release 10-29 00:00: 00 12-03 00:00 :00 No [id number] GERD 1 tablet DAILY 1 tablet DAILY (route: oral) Med Classific ation: Gastroint estinal Therapy Agents Santyl 250 unit/gram topical ointment 10-29 00:00: 00 12-03 00:00 :00 No [id number] TO WOUND BED 1 inch DAILY 1 inch DAILY (route: topical) Med Classific ation: Dermatolo gical trazodone 50 mg tablet 10-29 00:00: 00 12-03 00:00 :00 No [id number] NEEDED FOR SLEEP 1 tablet BEDTIME 1 tablet BEDTIME (route: oral) Med Classific ation: Central Nervous System Agents Vital Signs Vital Name Observation Time Observation Value Commen ts Temperature 2024-12-05 15:46:00.000 97.6 [degF] Temperature 2024-12-04 20:50:00.000 98.4 [degF] Temperature 2024-12-04 15:22:00.000 98.5 [degF] BMI (%) 2024-12-03 12:33:36.000 24 kg/m2 Height 2024-12-03 12:32:45.000 64 [in_us] Pulse 2024-12-05 15:46:00.000 72 /min Pulse 2024-12-04 20:50:00.000 76 /min Pulse 2024-12-04 15:22:00.000 100 /min O2 Saturation (%) 2024-12-05 15:46:00.000 95 % O2 Saturation (%) 2024-12-04 15:22:00.000 97 % Respirations 2024-12-05 15:46:00.000 18 /min Respirations 2024-12-04 20:50:00.000 16 /min Respirations 2024-12-04 15:22:00.000 16 /min Weight (lbs) 2024-12-03 12:33:36.000 140 [lb_av] Systolic Blood Pressure 2024-12-05 15:46:00.000 100 mm [Hg] Systolic Blood Pressure 2024-12-04 20:50:00.000 102 mm [Hg] Systolic Blood Pressure 2024-12-04 15:22:00.000 98 mm[ Hg] Diastolic Blood Pressure 2024-12-05 15:46:00.000 60 mm [Hg] Diastolic Blood Pressure 2024-12-04 20:50:00.000 68 mm [Hg] Diastolic Blood Pressure 2024-12-04 15:22:00.000 66 mm [Hg] Plan of Treatment Planned Activity Planned Date Details Comments Future Scheduled Test RN TO OBSE RVE, ASSESS, EVALUATE, AND DEVELOP AN INDIVIDUALIZED PLAN OF CARE. AGENCY MAY ACCEPT ORDERS FROM CONSULTING PHYSICIANS . RN TO OBSERVE AND ASSESS, LABORER SHIPYARD/HAT FORMER TO OBSERVE FOR RISK FOR FALLS AND INSTRUCT IN FALL PREVENTION, HOME SAFETY, MEDICATION MANAGEMENT, INFECTION PREVENTION, AND NUTRITION MANAGEMENT. RN/LABORER SHIPYARD/HAT FORMER NURSE MAY PERFORM O2 SATURATION LEVEL ON ADMISSION AND PRN FOR 1FOR RN TO ASSESS/LABORER SHIPYARD TO OBSERVE PATIENT, WITH NOTIFICATION TO THE PHYSICIAN IF SATURATION IS 90% IN THE ABSENCE OF MORE SPECIFIC PARAMETERS FROM THE PHYSICIAN. AGENCY MAY PERFORM A RESUMPTION OF CARE VISIT FOLLOWING ANY HOSPITAL ADMISSION. RN/LABORER SHIPYARD/HAT FORMER TO MONITOR CO-MORBID CONDITIONS LISTED ON THE PLAN OF CARE AND ANY NEW CONDITIONS THAT PRESENT THEMSELVES DURING THIS EPISODE TO IDENTIFY CHANGES AND INTERVENE TO MINIMIZE COMPLICATIONS. [code = RN TO OBSERVE, ASSESS, EVALUATE, AND DEVELOP AN INDIVIDUALIZED PLAN OF CARE. AGENCY MAY ACCEPT ORDERS FROM CONSULTING PHYSICIANS . RN TO OBSERVE AND ASSESS, LABORER SHIPYARD/HAT FORMER TO OBSERVE FOR RISK FOR FALLS AND INSTRUCT IN FALL PREVENTION, HOME SAFETY, MEDICATION MANAGEMENT, INFECTION PREVENTION, AND NUTRITION MANAGEMENT. RN/LABORER SHIPYARD/HAT FORMER NURSE MAY PERFORM O2 SATURATION LEVEL ON ADMISSION AND PRN FOR 1FOR RN TO ASSESS/LABORER SHIPYARD TO OBSERVE PATIENT, WITH NOTIFICATION TO THE PHYSICIAN IF SATURATION IS 90% IN THE ABSENCE OF MORE SPECIFIC PARAMETERS FROM THE PHYSICIAN. AGENCY MAY PERFORM A RESUMPTION OF CARE VISIT FOLLOWING ANY HOSPITAL ADMISSION. RN/LABORER SHIPYARD/HAT FORMER TO MONITOR CO-MORBID CONDITIONS LISTED ON THE PLAN OF CARE AND ANY NEW CONDITIONS THAT PRESENT THEMSELVES DURING THIS EPISODE TO IDENTIFY CHANGES AND INTERVENE TO MINIMIZE COMPLICATIONS.] Future Scheduled Test PHYSICAL T HERAPIST TO EVALUATE AND TREAT [code = PHYSICAL THERAPIST TO EVALUATE AND TREAT ] Future Scheduled Test OCCUPATION AL THERAPIST TO EVALUATE AND TREAT [code = OCCUPATIONAL THERAPIST TO EVALUATE AND TREAT ] Future Scheduled Test RESPIRATOR Y SYSTEM MANAGEMENT; RN TO ASSESS AND TEACH, LABORER SHIPYARD/HAT FORMER TO OBSERVE AND TEACH RELATED TO ALTERED RESPIRATORY STATUS TO MINIMIZE COMPLICATIONS AND REDUCE HOSPITALIZATION. [code = RESPIRATORY SYSTEM MANAGEMENT; RN TO ASSESS AND TEACH, LABORER SHIPYARD/HAT FORMER TO OBSERVE AND TEACH RELATED TO ALTERED RESPIRATORY STATUS TO MINIMIZE COMPLICATIONS AND REDUCE HOSPITALIZATION.] Future Scheduled Test COPD MANAG EMENT; RN TO ASSESS AND TEACH, LABORER SHIPYARD/HAT FORMER TO OBSERVE AND TEACH SIGNS/SYMPTOMS OF COPD EXACERBATION AND PROVIDE EARLY INTERVENTIONS TO MINIMIZE RISK OF HOSPITALIZATION. RN/LABORER SHIPYARD/HAT FORMER TO INSTRUCT ON SELF-CARE MANAGEMENT INCLUDING BREATHING TECHNIQUES, AIRWAY CLEARANCE, AND PROPER USE OF COPD MEDICATIONS. RN TO ASSESS AND TEACH, LABORER SHIPYARD/HAT FORMER TO OBSERVE AND TEACH PATIENT/CAREGIVER ABILITY TO MONITOR AND RECORD VITAL SIGNS INCLUDING PULSE OXIMETRY AND BLOOD PRESSURE. PULSE OXIMETER AND BP MONITOR TO BE PROVIDED IF NEEDED . [code = COPD MANAGEMENT; RN TO ASSESS AND TEACH, LABORER SHIPYARD/HAT FORMER TO OBSERVE AND TEACH SIGNS/SYMPTOMS OF COPD EXACERBATION AND PROVIDE EARLY INTERVENTIONS TO MINIMIZE RISK OF HOSPITALIZATION. RN/LABORER SHIPYARD/HAT FORMER TO INSTRUCT ON SELF-CARE MANAGEMENT INCLUDING BREATHING TECHNIQUES, AIRWAY CLEARANCE, AND PROPER USE OF COPD MEDICATIONS. RN TO ASSESS AND TEACH, LABORER SHIPYARD/HAT FORMER TO OBSERVE AND TEACH PATIENT/CAREGIVER ABILITY TO MONITOR AND RECORD VITAL SIGNS INCLUDING PULSE OXIMETRY AND BLOOD PRESSURE. PULSE OXIMETER AND BP MONITOR TO BE PROVIDED IF NEEDED .] Future Scheduled Test FALL REDUC TION MANAGEMENT; RN TO ASSESS AND OBSERVE, LABORER SHIPYARD/HAT FORMER TO OBSERVE FALL RISK FACTORS AND EDUCATE PATIENT/CAREGIVER ON STRATEGIES TO MINIMIZE THE RISK OF FALLING. [code = FALL REDUCTION MANAGEMENT; RN TO ASSESS AND OBSERVE, LABORER SHIPYARD/HAT FORMER TO OBSERVE FALL RISK FACTORS AND EDUCATE PATIENT/CAREGIVER ON STRATEGIES TO MINIMIZE THE RISK OF FALLING.] Future Scheduled Test GENITOURIN JESS MANAGEMENT; RN TO ASSESS AND TEACH, LABORER SHIPYARD/HAT FORMER TO OBSERVE AND TEACH RELATED TO ALTERED GENITOURINARY STATUS TO MINIMIZE COMPLICATIONS AND REDUCE HOSPITALIZATION. [code = GENITOURINARY MANAGEMENT; RN TO ASSESS AND TEACH, LABORER SHIPYARD/HAT FORMER TO OBSERVE AND TEACH RELATED TO ALTERED GENITOURINARY STATUS TO MINIMIZE COMPLICATIONS AND REDUCE HOSPITALIZATION.] Future Scheduled Test URINARY IN CONTINENCE MANAGEMENT; RN TO ASSESS AND TEACH, LABORER SHIPYARD/LVNTO OBSERVE AND TEACH MANAGEMENT OF URINARY INCONTINENCE. TEACH/INSTRUCT ON PREVENTING INFECTION AND SKIN BREAKDOWN. RN/LABORER SHIPYARD/HAT FORMER MAY INSTRUCT IN BLADDER TRAINING PROGRAM INDICATED. [code = URINARY INCONTINENCE MANAGEMENT; RN TO ASSESS AND TEACH, LABORER SHIPYARD/LVNTO OBSERVE AND TEACH MANAGEMENT OF URINARY INCONTINENCE. TEACH/INSTRUCT ON PREVENTING INFECTION AND SKIN BREAKDOWN. RN/LABORER SHIPYARD/HAT FORMER MAY INSTRUCT IN BLADDER TRAINING PROGRAM INDICATED.] Future Scheduled Test URINARY TR ACT INFECTION MANAGEMENT; RN/HAT FORMER/LABORER SHIPYARD TO PROVIDE SKILLED TEACHING AND SELF- CARE MANAGEMENT RELATED TO UTI TO MINIMIZE COMPLICATIONS AND REDUCE THE RISK OF HOSPITALIZATION. [code = URINARY TRACT INFECTION MANAGEMENT; RN/HAT FORMER/LABORER SHIPYARD TO PROVIDE SKILLED TEACHING AND SELF- CARE MANAGEMENT RELATED TO UTI TO MINIMIZE COMPLICATIONS AND REDUCE THE RISK OF HOSPITALIZATION.] Future Scheduled Test DIABETES M ANAGEMENT; RN TO ASSESS AND TEACH, HAT FORMER/LABORER SHIPYARD TO OBSERVE AND TEACH INSTRUCTIONS OF DIABETIC CARE TO INCLUDE: DIET ADA SKIN CARE, SIGNS AND SYMPTOMS OF HYPO/HYPERGLYCEMIA, PROPER ADMINISTRATION OF DIABETIC MEDICATION. RN/HAT FORMER/LABORER SHIPYARD TO INSTRUCT ON DIABETIC FOOT CARE AND MONITOR FOR SKIN LESIONS ON LOWER EXTREMITIES. BLOOD GLUCOSE TESTING DAILY FREQ. RN TO ASSESS AND TEACH, HAT FORMER/LABORER SHIPYARD TO OBSERVE AND TEACH PATIENT/CAREGIVER ABILITY TO PERFORM AND RECORD BLOOD GLUCOSE TESTING ORDERED AND TO REPORT ABNORMAL FINDINGS TO PHYSICIAN. RN/HAT FORMER/LABORER SHIPYARD MAY PERFORM BLOOD GLUCOSE TEST NEEDED. RN/HAT FORMER/LABORER SHIPYARD TO REPORT TO PHYSICIAN BLOOD GLUCOSE READINGS GREATER THAN 300 OR LESS THAN 70 RN/HAT FORMER/LABORER SHIPYARD TO INSTRUCT PATIENT ON IMPORTANCE OF HGBA1C MONITORING, KIDNEY FUNCTION TEST, EYE AND FOOT EXAMS. [code = DIABETES MANAGEMENT; RN TO ASSESS AND TEACH, HAT FORMER/LABORER SHIPYARD TO OBSERVE AND TEACH INSTRUCTIONS OF DIABETIC CARE TO INCLUDE: DIET ADA SKIN CARE, SIGNS AND SYMPTOMS OF HYPO/HYPERGLYCEMIA, PROPER ADMINISTRATION OF DIABETIC MEDICATION. RN/HAT FORMER/LABORER SHIPYARD TO INSTRUCT ON DIABETIC FOOT CARE AND MONITOR FOR SKIN LESIONS ON LOWER EXTREMITIES. BLOOD GLUCOSE TESTING DAILY FREQ. RN TO ASSESS AND TEACH, HAT FORMER/LABORER SHIPYARD TO OBSERVE AND TEACH PATIENT/CAREGIVER ABILITY TO PERFORM AND RECORD BLOOD GLUCOSE TESTING ORDERED AND TO REPORT ABNORMAL FINDINGS TO PHYSICIAN. RN/HAT FORMER/LABORER SHIPYARD MAY PERFORM BLOOD GLUCOSE TEST NEEDED. RN/HAT FORMER/LABORER SHIPYARD TO REPORT TO PHYSICIAN BLOOD GLUCOSE READINGS GREATER THAN 300 OR LESS THAN 70 RN/HAT FORMER/LABORER SHIPYARD TO INSTRUCT PATIENT ON IMPORTANCE OF HGBA1C MONITORING, KIDNEY FUNCTION TEST, EYE AND FOOT EXAMS.] Future Scheduled Test ANEMIA MAN AGEMENT; RN TO ASSESS AND TEACH, HAT FORMER/LABORER SHIPYARD TO OBSERVE AND TEACH AND PROVIDE EDUCATION ON ANEMIA. [code = ANEMIA MANAGEMENT; RN TO ASSESS AND TEACH, HAT FORMER/LABORER SHIPYARD TO OBSERVE AND TEACH AND PROVIDE EDUCATION ON ANEMIA.] Future Scheduled Test GASTROINTE STINAL MANAGEMENT; RN TO ASSESS AND TEACH, HAT FORMER/LABORER SHIPYARD TO OBSERVE AND TEACH RELATED TO ALTERED GASTROINTESTINAL STATUS TO MINIMIZE COMPLICATIONS AND REDUCE HOSPITALIZATION. [code = GASTROINTESTINAL MANAGEMENT; RN TO ASSESS AND TEACH, HAT FORMER/LABORER SHIPYARD TO OBSERVE AND TEACH RELATED TO ALTERED GASTROINTESTINAL STATUS TO MINIMIZE COMPLICATIONS AND REDUCE HOSPITALIZATION.] Future Scheduled Test ENTERAL FE EDING/CARE AND TEACHING; RN/HAT FORMER/LABORER SHIPYARD TO PERFORM AND INSTRUCT IN MANAGEMENT OF /JEJUNOSTOMY TUBE INCLUDING: CARE OF SITE, EQUIPMENT, AND PREPARATION/ADMINISTRATION OF FEEDINGS. TYPE NOVA SOURCE 40CC/HR X 24HRS VIA PUMP FREQUENCY CONTINUOUS FLUSH JEJUNOSTOMY WITH 120 CC OF H20 FREQUENCY EVERY 4 HOURS SITE CARE CLEANSE WITH WOUND CLEANSER, PAT DRY, APPLY MUPRICIN TO AREA AROUND TUBE CHECK TUBE PLACEMENT CHECK RESIDUAL [code = ENTERAL FEEDING/CARE AND TEACHING; RN/HAT FORMER/LABORER SHIPYARD TO PERFORM AND INSTRUCT IN MANAGEMENT OF /JEJUNOSTOMY TUBE INCLUDING: CARE OF SITE, EQUIPMENT, AND PREPARATION/ADMINISTRATION OF FEEDINGS. TYPE NOVA SOURCE 40CC/HR X 24HRS VIA PUMP FREQUENCY CONTINUOUS FLUSH JEJUNOSTOMY WITH 120 CC OF H20 FREQUENCY EVERY 4 HOURS SITE CARE CLEANSE WITH WOUND CLEANSER, PAT DRY, APPLY MUPRICIN TO AREA AROUND TUBE CHECK TUBE PLACEMENT CHECK RESIDUAL ] Future Scheduled Test MALNUTRITI ON MANAGEMENT; RN TO ASSESS AND TEACH, HAT FORMER/LABORER SHIPYARD TO OBSERVE AND TEACH AND INSTRUCT PATIENT / CAREGIVER ON INTERVENTIONS TO IMPROVE NUTRITIONAL INTAKE AND PATIENT WELLBEING. [code = MALNUTRITION MANAGEMENT; RN TO ASSESS AND TEACH, HAT FORMER/LABORER SHIPYARD TO OBSERVE AND TEACH AND INSTRUCT PATIENT / CAREGIVER ON INTERVENTIONS TO IMPROVE NUTRITIONAL INTAKE AND PATIENT WELLBEING.] Future Scheduled Test PAIN MANAG EMENT; RN TO ASSESS AND TEACH, HAT FORMER/LABORER SHIPYARD TO OBSERVE AND TEACH AND PROVIDE EDUCATION ON PAIN MANAGEMENT TECHNIQUES. [code = PAIN MANAGEMENT; RN TO ASSESS AND TEACH, HAT FORMER/LABORER SHIPYARD TO OBSERVE AND TEACH AND PROVIDE EDUCATION ON PAIN MANAGEMENT TECHNIQUES.] Future Scheduled Test RN/LABORER SHIPYARD/HAT FORMER TO PERFORM/TEACH PATIENT/CAREGIVER WOUND CARE TO COCCYX PER ASCEPTIC TECHNIQUE IRRIGATE/CLEANSE WITH MICROBIAL WOUND CLEANSER PAT DRY APPLY CHARO THICK SANTYL TO WOUND BED COVER WITH 4X4 GAUZE MAY APPLY SKIN BARRIER TO PERIWOUND PRN TO PREVENT MACERATION AND PROTECT PERIWOUND SECURE WITH MEDIPORE TAPE CHANGE DRESSING EVERY DAYS AND PRN FOR SOILED OR DISLODGED DRESSING MAY DISCONTINUE SUPPLIES WHEN WOUND IS HEALED [code = RN/LABORER SHIPYARD/HAT FORMER TO PERFORM/TEACH PATIENT/CAREGIVER WOUND CARE TO COCCYX PER ASCEPTIC TECHNIQUE IRRIGATE/CLEANSE WITH MICROBIAL WOUND CLEANSER PAT DRY APPLY CHARO THICK SANTYL TO WOUND BED COVER WITH 4X4 GAUZE MAY APPLY SKIN BARRIER TO PERIWOUND PRN TO PREVENT MACERATION AND PROTECT PERIWOUND SECURE WITH MEDIPORE TAPE CHANGE DRESSING EVERY DAYS AND PRN FOR SOILED OR DISLODGED DRESSING MAY DISCONTINUE SUPPLIES WHEN WOUND IS HEALED] Future Scheduled Test PRN VISITS ; NUMBER OF RN/LABORER SHIPYARD/HAT FORMER VISITS: 2 RN/LABORER SHIPYARD/HAT FORMER TO PERFORM: 2 VISITS FOR THE FOLLOWING REASONS: CARDIAC COMPLICATIONS [code = PRN VISITS; NUMBER OF RN/LABORER SHIPYARD/HAT FORMER VISITS: 2 RN/LABORER SHIPYARD/HAT FORMER TO PERFORM: 2 VISITS FOR THE FOLLOWING REASONS: CARDIAC COMPLICATIONS ] Future Scheduled Test RISK FOR H OSPITALIZATION; RN TO ASSESS/TEACH, HAT FORMER/LABORER SHIPYARD TO OBSERVE/TEACH PATIENT/CAREGIVER ON RISK FOR HOSPITALIZATION/EMERGENCY ROOM VISITS, TEACH SIGNS AND SYMPTOMS THAT PUT PATIENT AT RISK, WHEN TO NOTIFY NURSE/PHYSICIAN OF COMPLICATIONS/DECLINE, AND WHEN TO CALL 911. [code = RISK FOR HOSPITALIZATION; RN TO ASSESS/TEACH, HAT FORMER/LABORER SHIPYARD TO OBSERVE/TEACH PATIENT/CAREGIVER ON RISK FOR HOSPITALIZATION/EMERGENCY ROOM VISITS, TEACH SIGNS AND SYMPTOMS THAT PUT PATIENT AT RISK, WHEN TO NOTIFY NURSE/PHYSICIAN OF COMPLICATIONS/DECLINE, AND WHEN TO CALL 911.] Future Scheduled Test CARDIOVASC ULAR SYSTEM; RN TO ASSESS/TEACH, LABORER SHIPYARD/HAT FORMER TO OBSERVE/TEACH RELATED TO ALTERED CARDIOVASCULAR STATUS TO MINIMIZE COMPLICATIONS AND REDUCE HOSPITALIZATION. [code = CARDIOVASCULAR SYSTEM; RN TO ASSESS/TEACH, LABORER SHIPYARD/HAT FORMER TO OBSERVE/TEACH RELATED TO ALTERED CARDIOVASCULAR STATUS TO MINIMIZE COMPLICATIONS AND REDUCE HOSPITALIZATION.] Future Scheduled Test HYPERTENSI ON MANAGEMENT; RN TO ASSESS AND TEACH, LABORER SHIPYARD/HAT FORMER TO OBSERVE AND TEACH WARNING SIGNS AND SYMPTOMS TO AVOID HOSPITALIZATION. [code = HYPERTENSION MANAGEMENT; RN TO ASSESS AND TEACH, LABORER SHIPYARD/HAT FORMER TO OBSERVE AND TEACH WARNING SIGNS AND SYMPTOMS TO AVOID HOSPITALIZATION.] Future Scheduled Test URINARY MO LECULAR TESTING PROTOCOL UP TO 2 PRN RN/LABORER SHIPYARD/HAT FORMER VISITS MAY BE PERFORMED FOR S/S OF UTI. RN TO ASSESS, LABORER SHIPYARD/HAT FORMER TO OBSERVE INITIATION OF UTI PROTOCOL. RN/HAT FORMER/LABORER SHIPYARD TO INSTRUCT PATIENT AND/OR CAREGIVER ON S/S OF UTI TO REPORT TO RN/HAT FORMER/LABORER SHIPYARD IF NEW OR WORSENING SYMPTOMS. DRINK PLENTY OF WATER THROUGHOUT THE DAY TO MAINTAIN HYDRATION (UNLESS CONTRAINDICATED.) URINATE WHEN THE URGE IS FELT, DO NOT WAIT. WASH GENITALS DAILY. WIPE FROM FRONT TO BACK AFTER HAVING A BOWEL MOVEMENT. RN/HAT FORMER/LABORER SHIPYARD TO OBTAIN MOLECULAR URINE TESTING BY OPTION 1 OR OPTION 2 (OPTION 1) RN/HAT FORMER/LABORER SHIPYARD TO OBTAIN U/A WITH REFLEX TO UTI PANEL (MOLECULAR) VIA CLEAN CATCH URINE AND IF UNABLE TO OBTAIN MAY PERFORM AN IN AND OUT CATH. IF PATIENT HAS INDWELLING CATHETER MAY OBTAIN FROM SAMPLING PORT. (OPTION 2) RN/HAT FORMER/LABORER SHIPYARD TO OBTAIN UTI PANEL (MOLECULAR) VIA SWAB COLLECTION METHOD FROM ADULT BRIEF/DIAPER OR PAD IF PATIENT IS INCONTINENT. NOTIFY PROVIDER OF RESULTS AND OBTAIN FURTHER ORDERS. [code = URINARY MOLECULAR TESTING PROTOCOL UP TO 2 PRN RN/LABORER SHIPYARD/HAT FORMER VISITS MAY BE PERFORMED FOR S/S OF UTI. RN TO ASSESS, LABORER SHIPYARD/HAT FORMER TO OBSERVE INITIATION OF UTI PROTOCOL. RN/HAT FORMER/LABORER SHIPYARD TO INSTRUCT PATIENT AND/OR CAREGIVER ON S/S OF UTI TO REPORT TO RN/HAT FORMER/LABORER SHIPYARD IF NEW OR WORSENING SYMPTOMS. DRINK PLENTY OF WATER THROUGHOUT THE DAY TO MAINTAIN HYDRATION (UNLESS CONTRAINDICATED.) URINATE WHEN THE URGE IS FELT, DO NOT WAIT. WASH GENITALS DAILY. WIPE FROM FRONT TO BACK AFTER HAVING A BOWEL MOVEMENT. RN/HAT FORMER/LABORER SHIPYARD TO OBTAIN MOLECULAR URINE TESTING BY OPTION 1 OR OPTION 2 (OPTION 1) RN/HAT FORMER/LABORER SHIPYARD TO OBTAIN U/A WITH REFLEX TO UTI PANEL (MOLECULAR) VIA CLEAN CATCH URINE AND IF UNABLE TO OBTAIN MAY PERFORM AN IN AND OUT CATH. IF PATIENT HAS INDWELLING CATHETER MAY OBTAIN FROM SAMPLING PORT. (OPTION 2) RN/HAT FORMER/LABORER SHIPYARD TO OBTAIN UTI PANEL (MOLECULAR) VIA SWAB COLLECTION METHOD FROM ADULT BRIEF/DIAPER OR PAD IF PATIENT IS INCONTINENT. NOTIFY PROVIDER OF RESULTS AND OBTAIN FURTHER ORDERS.] Future Scheduled Test ARRHYTHMIA MANAGEMENT; RN TO ASSESS AND TEACH, LABORER SHIPYARD/HAT FORMER TO OBSERVE AND TEACH WARNING SIGNS AND SYMPTOMS TO AVOID HOSPITALIZATION. [code = ARRHYTHMIA MANAGEMENT; RN TO ASSESS AND TEACH, LABORER SHIPYARD/HAT FORMER TO OBSERVE AND TEACH WARNING SIGNS AND SYMPTOMS TO AVOID HOSPITALIZATION.] Future Scheduled Test MEDICATION MANAGEMENT; RN/LABORER SHIPYARD/HAT FORMER TO REVIEW MEDICATIONS FOR INTERACTIONS, EFFECTIVENESS OF DRUG THERAPY, AND SIGNS/SYMPTOMS OF ADVERSE REACTIONS. MAY INSTRUCT AND REINFORCE MEDICATION TEACHING RELATED TO THE USE OF MEDICATIONS, DOSAGE, FREQUENCY, PURPOSE, SIDE EFFECTS, AND TO REPORT COMPLICATIONS. [code = MEDICATION MANAGEMENT; RN/LABORER SHIPYARD/HAT FORMER TO REVIEW MEDICATIONS FOR INTERACTIONS, EFFECTIVENESS OF DRUG THERAPY, AND SIGNS/SYMPTOMS OF ADVERSE REACTIONS. MAY INSTRUCT AND REINFORCE MEDICATION TEACHING RELATED TO THE USE OF MEDICATIONS, DOSAGE, FREQUENCY, PURPOSE, SIDE EFFECTS, AND TO REPORT COMPLICATIONS.] Future Scheduled Test AGENCY MAY PERFORM A RESUMPTION OF CARE VISIT FOLLOWING ANY HOSPITAL ADMISSION. PT TO EVALUATE, OBSERVE / ASSESS, AND MONITOR, SAFETY INVESTIGATOR/CAUSE ANALYST TO OBSERVE AND MONITOR, PROVIDE SKILLED THERAPEUTIC INTERVENTION, ACTIVITY, EDUCATION, AND TRAINING TO ADDRESS; PT/SAFETY INVESTIGATOR/CAUSE ANALYST TO PROVIDE GAIT TRAINING FOR IMPROVED MOBILITY AND /OR TO NORMALIZE GAIT PATTERN NEUROMUSCULAR RE-EDUCATION / BALANCE / POSTURAL CONTROL (PT) THERAPEUTIC EXERCISES AND ESTABLISHING A HOME EXERCISE PROGRAM (PT/SAFETY INVESTIGATOR/CAUSE ANALYST) PT/SAFETY INVESTIGATOR/CAUSE ANALYST TO PROVIDE STAIR TRAINING SIT TO/FROM STAND TRANSFERS (PT/SAFETY INVESTIGATOR/CAUSE ANALYST) PT / SAFETY INVESTIGATOR/CAUSE ANALYST TO MONITOR AND EDUCATE ON OXYGEN SATURATION DURING ADLS/IADLS, NOTIFY PHYSICIAN AND/OR THE RN CLINICAL CLICKING MACHINE OPERATOR FOR PHYSICIAN NOTIFICATION AND IF O2 SATS BELOW PHYSICIAN ORDERED PARAMETERS AFTER 10 MIN OF REST PT / SAFETY INVESTIGATOR/CAUSE ANALYST MAY EDUCATE ON PAIN MANAGEMENT CLINICALLY INDICATED, INCLUDING NON-PHARMACOLOGICAL PAIN REDUCTION TECHNIQUES AND USE OF CRYOTHERAPY UP TO 20 MIN AT A TIME FOR PAIN MANAGEMENT 2 O 3 TIMES PER DAY TO LEFT KNEE PT / SAFETY INVESTIGATOR/CAUSE ANALYST TO INSTRUCT PATIENT/CAREGIVER ON RISK FOR HOSPITALIZATION/EMERGENCY ROOM VISITS, TEACH SIGNS AND SYMPTOMS THAT PUT PATIENT AT RISK, WHEN TO NOTIFY NURSE/PHYSICIAN OF COMPLICATIONS/DECLINE, AND WHEN TO CALL 911. PT TO ASSESS / SAFETY INVESTIGATOR/CAUSE ANALYST TO MONITOR CARDIO/RESPIRATORY SYSTEM; AND NOTIFY THE PHYSICIAN AND/OR THE RN CLINICAL CLICKING MACHINE OPERATOR FOR PHYSICIAN NOTIFICATION FOR EARLY SIGNS AND SYMPTOMS OF EXACERBATION OR DETERIORATION. PT / SAFETY INVESTIGATOR/CAUSE ANALYST TO EDUCATE ON ATRIAL FIBRILLATION SELF-MANAGEMENT. PT / SAFETY INVESTIGATOR/CAUSE ANALYST TO EDUCATE ON PNEUMONIA / ASPIRATION PNEUMONIA SELF-MANAGEMENT. PT/SAFETY INVESTIGATOR/CAUSE ANALYST TO IDENTIFY FALL RISK FACTORS; EDUCATE THE PATIENT/CAREGIVER ON WAYS TO REDUCE FALL RISK FACTORS AND ESTABLISH HOME EXERCISE PROGRAM TO MINIMIZE FALL RISK. MAY TEACH THE PATIENT FLOOR RECOVERY WHEN CLINICALLY APPROPRIATE PT / SAFETY INVESTIGATOR/CAUSE ANALYST TO OBSERVE WOUND/INCISION AND/OR INTACT DRESSING ON COCCYX WOUND DETERIORATION, COMPLICATIONS, OR INFECTION TO PHYSICIAN AND/OR THE RN CLINICAL CLICKING MACHINE OPERATOR FOR PHYSICIAN NOTIFICATION. PT / SAFETY INVESTIGATOR/CAUSE ANALYST TO EDUCATE ON COPD SELF-MANAGEMENT [code = AGENCY MAY PERFORM A RESUMPTION OF CARE VISIT FOLLOWING ANY HOSPITAL ADMISSION. PT TO EVALUATE, OBSERVE / ASSESS, AND MONITOR, SAFETY INVESTIGATOR/CAUSE ANALYST TO OBSERVE AND MONITOR, PROVIDE SKILLED THERAPEUTIC INTERVENTION, ACTIVITY, EDUCATION, AND TRAINING TO ADDRESS; PT/SAFETY INVESTIGATOR/CAUSE ANALYST TO PROVIDE GAIT TRAINING FOR IMPROVED MOBILITY AND /OR TO NORMALIZE GAIT PATTERN NEUROMUSCULAR RE-EDUCATION / BALANCE / POSTURAL CONTROL (PT) THERAPEUTIC EXERCISES AND ESTABLISHING A HOME EXERCISE PROGRAM (PT/SAFETY INVESTIGATOR/CAUSE ANALYST) PT/SAFETY INVESTIGATOR/CAUSE ANALYST TO PROVIDE STAIR TRAINING SIT TO/FROM STAND TRANSFERS (PT/SAFETY INVESTIGATOR/CAUSE ANALYST) PT / SAFETY INVESTIGATOR/CAUSE ANALYST TO MONITOR AND EDUCATE ON OXYGEN SATURATION DURING ADLS/IADLS, NOTIFY PHYSICIAN AND/OR THE RN CLINICAL CLICKING MACHINE OPERATOR FOR PHYSICIAN NOTIFICATION AND IF O2 SATS BELOW PHYSICIAN ORDERED PARAMETERS AFTER 10 MIN OF REST PT / SAFETY INVESTIGATOR/CAUSE ANALYST MAY EDUCATE ON PAIN MANAGEMENT CLINICALLY INDICATED, INCLUDING NON-PHARMACOLOGICAL PAIN REDUCTION TECHNIQUES AND USE OF CRYOTHERAPY UP TO 20 MIN AT A TIME FOR PAIN MANAGEMENT 2 O 3 TIMES PER DAY TO LEFT KNEE PT / SAFETY INVESTIGATOR/CAUSE ANALYST TO INSTRUCT PATIENT/CAREGIVER ON RISK FOR HOSPITALIZATION/EMERGENCY ROOM VISITS, TEACH SIGNS AND SYMPTOMS THAT PUT PATIENT AT RISK, WHEN TO NOTIFY NURSE/PHYSICIAN OF COMPLICATIONS/DECLINE, AND WHEN TO CALL 911. PT TO ASSESS / SAFETY INVESTIGATOR/CAUSE ANALYST TO MONITOR CARDIO/RESPIRATORY SYSTEM; AND NOTIFY THE PHYSICIAN AND/OR THE RN CLINICAL CLICKING MACHINE OPERATOR FOR PHYSICIAN NOTIFICATION FOR EARLY SIGNS AND SYMPTOMS OF EXACERBATION OR DETERIORATION. PT / SAFETY INVESTIGATOR/CAUSE ANALYST TO EDUCATE ON ATRIAL FIBRILLATION SELF-MANAGEMENT. PT / SAFETY INVESTIGATOR/CAUSE ANALYST TO EDUCATE ON PNEUMONIA / ASPIRATION PNEUMONIA SELF-MANAGEMENT. PT/SAFETY INVESTIGATOR/CAUSE ANALYST TO IDENTIFY FALL RISK FACTORS; EDUCATE THE PATIENT/CAREGIVER ON WAYS TO REDUCE FALL RISK FACTORS AND ESTABLISH HOME EXERCISE PROGRAM TO MINIMIZE FALL RISK. MAY TEACH THE PATIENT FLOOR RECOVERY WHEN CLINICALLY APPROPRIATE PT / SAFETY INVESTIGATOR/CAUSE ANALYST TO OBSERVE WOUND/INCISION AND/OR INTACT DRESSING ON COCCYX WOUND DETERIORATION, COMPLICATIONS, OR INFECTION TO PHYSICIAN AND/OR THE RN CLINICAL CLICKING MACHINE OPERATOR FOR PHYSICIAN NOTIFICATION. PT / SAFETY INVESTIGATOR/CAUSE ANALYST TO EDUCATE ON COPD SELF-MANAGEMENT ] Future Scheduled Test OCCUPATION AL THERAPY EVALUATION PERFORMED. NO ADDITIONAL VISITS REQUIRED. PROVIDED SKILLED INTERVENTION INCLUDING FALL PREVENTION, HEP, SAFETY AND ADL RETRAINING. [code = OCCUPATIONAL THERAPY EVALUATION PERFORMED. NO ADDITIONAL VISITS REQUIRED. PROVIDED SKILLED INTERVENTION INCLUDING FALL PREVENTION, HEP, SAFETY AND ADL RETRAINING. ] Goal Patient Goal - FEEL BETTER Goal Provider Goal - A PLAN OF CARE WILL BE ESTABLISHED THAT MEETS THE PATIENTS NEEDS. PATIENT WILL DEMONSTRATE OXYGEN SATURATION WITHIN NORMAL LIMITS OR PATIENTS OPTIMAL LEVEL ESTABLISHED BY THE PHYSICIAN THROUGHOUT CARE. CHANGES TO CO-MORBID CONDITIONS AND ANY NEW CONDITIONS WILL BE IDENTIFIED AND REPORTED TO THE PHYSICIAN. Goal Provider Goal - PATIENT WILL BENEFIT FROM PT SERVICES BY 7.4.25 Goal Provider Goal - PATIENT WILL BENEFIT FROM OT SERVICES BY 7.4.25 Goal Provider Goal - PATIENT / CAREGIVER WILL VERBALIZE/DEMONSTRATE UNDERSTANDING OF MEASURES TO MANAGE ALTERED RESPIRATORY STATUS BY 7.4.25 Goal Provider Goal - PATIENT / CAREGIVER WILL VERBALIZE/DEMONSTRATE AN ABILITY TO ADHERE TO SELF-MANAGEMENT OF COPD TO MINIMIZE COMPLICATIONS AND AVOID HOSPITALIZATION BY 7.4.25 Goal Provider Goal - PATIENT/CAREGIVER WILL VERBALIZE/DEMONSTRATE UNDERSTANDING OF FALL RISK FACTORS AND IMPLEMENT STRATEGIES TO MINIMIZE FALL RISK. PATIENT/CAREGIVER WILL VERBALIZE/DEMONSTRATE AN ABILITY TO ADHERE TO FALL REDUCTION SELF-MANAGEMENT AND LIFE-STYLE CHANGES BY 7.4.25 Goal Provider Goal - PATIENT / CAREGIVER WILL VERBALIZE/DEMONSTRATE UNDERSTANDING OF MEASURES TO MANAGE ALTERED GENITOURINARY STATUS BY 7.4.25 Goal Provider Goal - PATIENT/CAREGIVER WILL VERBALIZE/DEMONSTRATE UNDERSTANDING OF CARE AND MANAGEMENT OF URINARY INCONTINENCE BY 7.4.25 Goal Provider Goal - PATIENT/CAREGIVER WILL VERBALIZE/DEMONSTRATE UNDERSTANDING OF CARE AND MANAGEMENT OF URINARY TRACT INFECTION BY 7.4.25.. Goal Provider Goal - PATIENT / CAREGIVER WILL VERBALIZE / DEMONSTRATE AN ABILITY TO ADHERE TO SELF-MANAGEMENT OF DIABETES MANAGEMENT BY 7.4.25 Goal Provider Goal - PATIENT/CAREGIVER WILL VERBALIZE UNDERSTANDING OF CARE AND MANAGEMENT OF ANEMIA BY 7.4.25 Goal Provider Goal - PATIENT / CAREGIVER WILL VERBALIZE/DEMONSTRATE UNDERSTANDING OF MEASURES TO MANAGE ALTERED GASTROINTESTINAL STATUS BY 7.4.25 Goal Provider Goal - PATIENT/CAREGIVER WILL VERBALIZE/DEMONSTRATE UNDERSTANDING OF CARE AND MANAGEMENT OF ENTERAL TUBE FEEDING BY 7.4.25 Goal Provider Goal - PATIENT / CAREGIVER WILL VERBALIZE/DEMONSTRATE APPROPRIATE METHODS TO IMPROVE NUTRITIONAL STATUS BY 7.4.25 Goal Provider Goal - PATIENT / CAREGIVER WILL VERBALIZE / DEMONSTRATE UNDERSTANDING OF PAIN CONTROL MEASURES BY 7.4.25 Goal Provider Goal - PATIENT / CAREGIVER WILL VERBALIZE/DEMONSTRATE ABILITY TO PERFORM WOUND CARE. WOUND STATUS WILL IMPROVE EVIDENCED BY A DECREASE IN SIZE, DRAINAGE, ABSENCE OF INFECTION, AND DECREASED PAIN BY 7.4.25 Goal Provider Goal - PATIENT WILL UTILIZE PRN VISITS TO PREVENT HOSPITALIZATION BY 7.4.25 Goal Provider Goal - PATIENT/CAREGIVER WILL VERBALIZE UNDERSTANDING OF SIGNS AND SYMPTOMS THAT PUT THE PATIENT AT RISK FOR HOSPITALIZATION /EMERGENCY ROOM VISITS, WHEN TO NOTIFY NURSE/PHYSICIAN OF COMPLICATIONS/DECLINE AND WHEN TO CALL 911. Goal Provider Goal - PATIENT / CAREGIVER WILL VERBALIZE/DEMONSTRATE UNDERSTANDING OF MEASURES TO MANAGE ALTERED CARDIOVASCULAR STATUS BY 7..25 Goal Provider Goal - PATIENT / CAREGIVER WILL VERBALIZE/DEMONSTRATE AN ABILITY TO ADHERE TO SELF-MANAGEMENT OF HTN TO MINIMIZE COMPLICATIONS AND AVOID HOSPITALIZATION BY 7..25 Goal Provider Goal - PATIENT WILL DEMONSTRATE IMPROVEMENT IN S/S OF UTI TO AVOID HOSPITALIZATION. Goal Provider Goal - PATIENT / CAREGIVER WILL VERBALIZE/DEMONSTRATE AN ABILITY TO ADHERE TO SELF-MANAGEMENT OF HEART ARRHYTHMIA TO MINIMIZE COMPLICATIONS AND AVOID HOSPITALIZATION BY 7..25 Goal Provider Goal - PATIENT/CAREGIVER TO VERBALIZE, AND CONSISTENTLY DEMONSTRATE EFFECTIVE, SAFE MANAGEMENT OF MEDICATION INCLUDING KNOWLEDGE OF EFFECTIVENESS, POTENTIAL SIDE EFFECTS AND DRUG REACTIONS AND WHEN TO CONTACT THE APPROPRIATE CARE PROVIDER. PATIENT/CAREGIVER WILL BE ABLE TO VERBALIZE UNDERSTANDING OF MEDICATION REGIMEN AND ACCURATELY TAKE MEDICATIONS PRESCRIBED WITHOUT ADVERSE EFFECTS BY ..25 Goal Provider Goal - PATIENT WILL DEMONSTRATE PT GOALS MET BY 7.4.25 PT LTG: PATIENT WILL DEMONSTRATE REDUCED GAIT DEVIATIONS TO REDUCE THE RISK FOR FALLING AND MINIMIZE STRAIN ON KNEES/HIPS AND BACK EVIDENCED BY IMPROVED UPRIGHT POSTURE, PROPER FOOT CLEARANCE AND CONTINUOUS STRIDES AMBULATING IN THE HOME WITH FRONT WHEELED WALKER FROM CGA X 80 FT, TO INDEPENDENT X 200 FEET WITH FWW WITHIN 9 WEEKS. PT LTG: PATIENT WILL DEMONSTRATE REDUCED FALL RISK EVIDENCED BY TINETTI SCORE IMPROVING FROM 28 TO 21/28 WITHIN 9 WEEKS. PT STG: PATIENT WILL DEMONSTRATE PERFORMANCE OF HOME EXERCISE PROGRAMS TO PROMOTE LEG STRENGTHENING EXERCISES BETWEEN SESSIONS WITH SBA WITHIN 2 WEEKS. PT LTG: PATIENT WILL DEMONSTRATE INCREASED STRENGTH OF B HIP FLEX FROM 4-/5 TO 4+/5 WITHIN 9 WEEKS IN ORDER TO IMPROVE QUALITY OF GAIT AND INDEPENDENT TRANSFERS. PT LTG: PATIENT WILL DEMONSTRATE INCREASED STRENGTH OF B KNEE EXT/FLEX FROM 4/5 TO 5/5 WITHIN 9 WEEKS IN ORDER TO INDEPENDENTLY WALK WITH A WHEELED WALKER IN THE HOME AND COMMUNITY. PT LTG: PATIENT WILL DEMONSTRATE IMPROVED ABILITY TO SAFELY NEGOTIATE STAIRS FROM MOD ASSIST TO SUPERVISION WITH WALKER IN ORDER TO SAFELY LEAVE HOME FOR MEDICAL APPOINTMENT WITHIN 9 WEEKS. PT LTG: PATIENT WILL DEMONSTRATE IMPROVED ABILITY TO SAFELY NEGOTIATE 12 STAIRS TO SECOND FLOOR BEDROOM FROM UNABLE AT EVAL, TO SBA TAKING REST BREAK IN A PROVIDED CHAIR ON THE LANDING -NEEDED WITHIN 9 WEEKS IN ORDER TO RESUME SLEEPING UPSTAIRS IN HER BED. PT LTG: PATIENT WILL DEMONSTRATE IMPROVED ABILITY TO PERFORM SIT TO/FROM STAND TRANSFERS TO REDUCE THE RISK OF SKIN BREAKDOWN AND REDUCE FALL RISK FROM MODERATE ASSIST TO INDEP WITHIN 9 WEEKS PT LTG: PATIENT WILL MAINTAIN OXYGEN SATURATION WITHIN PHYSICIAN ORDERED PARAMETERS THROUGHOUT EPISODE OF CARE. PT GOAL: PATIENT WILL DEMONSTRATE UNDERSTANDING OF PAIN MANAGEMENT TECHNIQUES EVIDENCED BY REDUCED PAIN IN LEFT KNEE WITHIN 9 WEEKS PT GOAL: PATIENT/CAREGIVER WILL VERBALIZE UNDERSTANDING OF SIGNS AND SYMPTOMS THAT PUT THE PATIENT AT RISK FOR HOSPITALIZATION /EMERGENCY ROOM VISITS, WHEN TO NOTIFY NURSE/PHYSICIAN OF COMPLICATIONS/DECLINE AND WHEN TO CALL 911. PT LTG: PATIENT WILL NOT EXPERIENCE CARDIAC OR RESPIRATORY COMPLICATIONS THROUGHOUT THE EPISODE OF CARE. PT GOAL: PATIENT/CAREGIVER WILL BE ABLE TO IDENTIFY SIGNS OF ATRIAL FIBRILLATION EXACERBATION AND WILL VERBALIZE/DEMONSTRATE AN ABILITY TO ADHERE TO ATRIAL FIBRILLATION SELF-MANAGEMENT AND LIFE-STYLE CHANGES BY 7.4.25 PT GOAL: PATIENT / CAREGIVER WILL DEMONSTRATE ADHERENCE TO PNEUMONIA SELF-MANAGEMENT BY 7.4.25 PT LTG: PATIENT/CAREGIVER WILL DEMONSTRATE ADHERENCE TO FALL REDUCTION SELF-MANAGEMENT AND REDUCING FALL RISK FACTORS TO MINIMIZE FALL RISK BY 7.4.25 PT LTG: PATIENT WILL BE INDEPENDENT WITH IMPLEMENTATION OF HEP WITHIN 9 WEEKS. PT GOAL: THE PATIENT WILL NOT DEMONSTRATE ANY WOUND COMPLICATIONS DURING THE EPISODE OF CARE. PT GOAL: THE PATIENT / CAREGIVER WILL DEMONSTRATE ADHERENCE TO COPD SELF-MANAGEMENT BY 7.4.25 Goal Provider Goal - PATIENT / CAREGIVER WITHIN 1 VISIT WILL BE ABLE TO VERBALIZE / DEMONSTRATE UNDERSTANDING OF HEP, ADL, SAFETY AND FALL PREVENTION. Encounters Start Date/Time End Date/Time Encounter Type Admission Type Attending [facility] Care Department Encounter ID Discharge Date Discharge Status Discharge Condition Discharge Reason Percent Goals Met 2024-12-03 00:00:00 2025-01-31 00:00:00 Outpatient LLUVIA MARTI [facility] [id number]
--- OUTSIDE RECORDS SUMMARY | 2024-12-11 14:24 | XMS_ITS | Clinical Summary ---
Author Organization Unknown Care Team Providers Care Cdl Truck Driver Name Role Phone DIYA DAHL, CURT Unavailable Unavailable LILIYA RN, LLUVIA Unavailable Unavailable MERLE WASHINGTONN, LAMIN Unavailable Unavailable NEUMAYER PT, TESS Unavailable Unavailable [employer]ET[employer] MANAGER, JERRY Unavailable Unavail able MAURETTO OT, PLASENCIA ARABELLE Unavailable Unavai lable LUPCHO YULISA/GAINES, AMADO Unavailable Unavaila ble SHANELLE ST, TERE Unavailable Unavailable Payers Payer Name Policy Type Policy Number Effective Date Expira tion Date [id number] Problems Condition Name Condition Details Condition Category [...] 00 OBESITY, UNSPECIFIED Active 11-26 00:00: 00 ASSISTED (CURRENT) USE OF ANTICOAGULAN TS Active 11-26 [...] -13 00:00: 00 12-03 00:00 :00 No [id number] GLAUCOMA Per instruc tions AT BEDTIME Per instructio ns AT BEDTIME (route: ophthalmic (eye)) Med Classific ation: Ophthalmi c Agents levothyroxi ne 112 mcg tablet 09-27 00:00: 00 10-21 00:00 :00 No [id number] Per instruc tions Per instructio ns (route: oral) Med Classific ation: Endocrine Protonix 40 mg granules delayed-rel ease packet 09-27 00:00: 00 10-21 00:00 :00 No [id number] Per instruc tions Per instructio ns (route: oral) Med Classific ation: Gastroint estinal Therapy Agents pantoprazol e 40 mg tablet,navarro yed release 09-26 00:00: 00 10-21 00:00 :00 No [id number] Per instruc tions EVERY DAY Per instructio ns EVERY DAY (route: oral) Med Classific ation: Gastroint estinal Therapy Agents atorvastati n 10 mg tablet 2-19 00:00: 00 12-03 00:00 :00 No [id number] CHOLESTEROL 1 tablet NIGHTLY AT BEDTIME 1 tablet NIGHTLY AT BEDTIME (route: oral) Med Classific ation: Cardiovas cular Therapy Agents acetaminoph en 325 mg tablet 24 00:00: 00 12-03 00:00 :00 No [id number] PAIN 2 tablet EVERY 4 HOURS 2 tablet EVERY 4 HOURS (route: oral) Med Classific ation: Analgesic , Anti-infl ammatory or Antipyret ic bisacodyl 10 mg rectal suppository 10-21 00:00: 00 12-03 00:00 :00 No [id number] CONSTIPATIO N 1 supposi tory, rectal DAILY 1 suppositor y, rectal DAILY (route: rectal) Med Classific ation: Gastroint estinal Therapy Agents levothyroxi ne 137 mcg capsule 10-21 00:00: 00 12-03 00:00 :00 No [id number] THYROID 1 capsule DAILY 1 capsule DAILY (route: oral) Med Classific ation: Endocrine lidocaine 5 % topical patch 10-21 00:00: 00 12-03 00:00 :00 No [id number] LEFT KNEE 1 adhesiv e patch, medicat ed EVERY 12 HOURS 1 adhesive patch, medicated EVERY 12 HOURS (route: topical) Med Classific ation: Dermatolo gical [employer] Renal 2 Nazario 0.09 gram-2 kcal/mL oral liquid 10-21 00:00: 00 12-03 00:00 :00 No [id number] SUPPLEMENT Per instruc tions DIRECTED Per instructio ns DIRECTED (route: oral) Med Classific ation: Electroly te Balance-N utritiona l Products omeprazole 20 mg capsule,del ayed release 10-21 00:00: 00 10-29 00:00 :00 No [id number] GERD 1 capsule DAILY 1 capsule DAILY (route: oral) Med Classific ation: Gastroint estinal Therapy Agents Senna with Docusate Sodium 8.6 mg-50 mg tablet 10-21 00:00: 00 Yes [id number] CONSTIPATIO N 2 tablet BEDTIME 2 tablet BEDTIME (route: oral) Med Classific ation: Gastroint estinal Therapy Agents sodium chloride 1,000 mg soluble tablet 10-21 00:00: 00 12-03 00:00 :00 No [id number] SUPPLEMENT 1 tablet 3 TIMES DAILY 1 tablet 3 TIMES DAILY (route: miscellane ous) Med Classific ation: Electroly te Balance-N utritiona l Products Timoptic Ocudose (PF) 0.5 % eye drops in a dropperette 3-24 00:00: 00 Yes [id number] GLAUCOMA 1 dropper ette DAILY 1 dropperett e DAILY (route: ophthalmic (eye)) Med Classific ation: Ophthalmi c Agents diltiazem CD 120 mg capsule,ext ended release 24 hr 10-29 00:00: 00 12-03 00:00 :00 No [id number] AFIB 1 capsule DAILY 1 capsule DAILY (route: oral) Med Classific ation: Cardiovas cular Therapy Agents Eliquis 5 mg tablet 10-29 00:00: 00 12-03 00:00 :00 No [id number] BLOOD THINNER/MING B 1 tablet 2 TIMES DAILY 1 tablet 2 TIMES DAILY (route: oral) Med Classific ation: Hematolog ical Agents ferrous sulfate 325 mg (65 mg iron) tablet 10-29 00:00: 00 12-03 00:00 :00 No [id number] SUPPLEMENT 1 tablet DAILY 1 tablet DAILY (route: oral) Med Classific ation: Electroly te Balance-N utritiona l Products furosemide 40 mg tablet 10-29 00:00: 00 12-03 00:00 :00 No [id number] FLUID OVERLOAD 1 tablet DAILY 1 tablet DAILY (route: oral) Med Classific ation: Cardiovas cular Therapy Agents imipramine 25 mg tablet 10-29 00:00: 00 12-03 00:00 :00 No [id number] MOOD 1 tablet BEDTIME 1 tablet BEDTIME (route: oral) Med Classific ation: Central Nervous System Agents Lopressor 100 mg tablet 10-29 00:00: 00 12-03 00:00 :00 No [id number] HIGH BLOOD PRESSURE 1 tablet 2 TIMES DAILY 1 tablet 2 TIMES DAILY (route: oral) Med Classific ation: Cardiovas cular Therapy Agents pantoprazol e 40 mg tablet,navarro yed release 10-29 00:00: 00 12-03 00:00 :00 No [id number] GERD 1 tablet DAILY 1 tablet DAILY (route: oral) Med Classific ation: Gastroint estinal Therapy Agents Santyl 250 unit/gram topical ointment 10-29 00:00: 00 12-03 00:00 :00 No [id number] TO WOUND BED 1 inch DAILY 1 inch DAILY (route: topical) Med Classific ation: Dermatolo gical trazodone 50 mg tablet 10-29 00:00: 00 12-03 00:00 :00 No [id number] NEEDED FOR SLEEP 1 tablet BEDTIME 1 [...] PHYSICIANS . RN TO OBSERVE AND ASSESS, SLATE TRIMMER/TANK ERECTOR TO OBSERVE FOR RISK FOR FALLS AND INSTRUCT IN FALL PREVENTION, HOME SAFETY, MEDICATION MANAGEMENT, INFECTION PREVENTION, AND NUTRITION MANAGEMENT. RN/SLATE TRIMMER/TANK ERECTOR NURSE MAY PERFORM O2 SATURATION LEVEL ON ADMISSION AND PRN FOR 1FOR RN TO ASSESS/SLATE TRIMMER TO OBSERVE PATIENT, WITH NOTIFICATION TO THE PHYSICIAN IF SATURATION IS 90% IN THE ABSENCE OF MORE SPECIFIC PARAMETERS FROM THE PHYSICIAN. AGENCY MAY PERFORM A RESUMPTION OF CARE VISIT FOLLOWING ANY HOSPITAL ADMISSION. RN/SLATE TRIMMER/TANK ERECTOR TO MONITOR CO-MORBID CONDITIONS LISTED ON THE PLAN OF CARE AND ANY NEW CONDITIONS THAT PRESENT THEMSELVES DURING THIS EPISODE TO IDENTIFY CHANGES AND INTERVENE TO MINIMIZE COMPLICATIONS. [code = RN TO OBSERVE, ASSESS, EVALUATE, AND DEVELOP AN INDIVIDUALIZED PLAN OF CARE. AGENCY MAY ACCEPT ORDERS FROM CONSULTING PHYSICIANS . RN TO OBSERVE AND ASSESS, SLATE TRIMMER/TANK ERECTOR TO OBSERVE FOR RISK FOR FALLS AND INSTRUCT IN FALL PREVENTION, HOME SAFETY, MEDICATION MANAGEMENT, INFECTION PREVENTION, AND NUTRITION MANAGEMENT. RN/SLATE TRIMMER/TANK ERECTOR NURSE MAY PERFORM O2 SATURATION LEVEL ON ADMISSION AND PRN FOR 1FOR RN TO ASSESS/SLATE TRIMMER TO OBSERVE PATIENT, WITH NOTIFICATION TO THE PHYSICIAN IF SATURATION IS 90% IN THE ABSENCE OF MORE SPECIFIC PARAMETERS FROM THE PHYSICIAN. AGENCY MAY PERFORM A RESUMPTION OF CARE VISIT FOLLOWING ANY HOSPITAL ADMISSION. RN/SLATE TRIMMER/TANK ERECTOR TO MONITOR CO-MORBID CONDITIONS LISTED ON THE [...] SYSTEM MANAGEMENT; RN TO ASSESS AND TEACH, SLATE TRIMMER/TANK ERECTOR TO OBSERVE AND TEACH RELATED TO ALTERED RESPIRATORY STATUS TO MINIMIZE COMPLICATIONS AND REDUCE HOSPITALIZATION. [code = RESPIRATORY SYSTEM MANAGEMENT; RN TO ASSESS AND TEACH, SLATE TRIMMER/TANK ERECTOR TO OBSERVE AND TEACH RELATED TO ALTERED RESPIRATORY STATUS TO MINIMIZE COMPLICATIONS AND REDUCE HOSPITALIZATION.] Future Scheduled Test COPD MANAG EMENT; RN TO ASSESS AND TEACH, SLATE TRIMMER/TANK ERECTOR TO OBSERVE AND TEACH SIGNS/SYMPTOMS OF COPD EXACERBATION AND PROVIDE EARLY INTERVENTIONS TO MINIMIZE RISK OF HOSPITALIZATION. RN/SLATE TRIMMER/TANK ERECTOR TO INSTRUCT ON SELF-CARE MANAGEMENT INCLUDING BREATHING TECHNIQUES, AIRWAY CLEARANCE, AND PROPER USE OF COPD MEDICATIONS. RN TO ASSESS AND TEACH, SLATE TRIMMER/TANK ERECTOR TO OBSERVE AND TEACH PATIENT/CAREGIVER ABILITY TO MONITOR AND RECORD VITAL SIGNS INCLUDING PULSE OXIMETRY AND BLOOD PRESSURE. PULSE OXIMETER AND BP MONITOR TO BE PROVIDED IF NEEDED . [code = COPD MANAGEMENT; RN TO ASSESS AND TEACH, SLATE TRIMMER/TANK ERECTOR TO OBSERVE AND TEACH SIGNS/SYMPTOMS OF COPD EXACERBATION AND PROVIDE EARLY INTERVENTIONS TO MINIMIZE RISK OF HOSPITALIZATION. RN/SLATE TRIMMER/TANK ERECTOR TO INSTRUCT ON SELF-CARE MANAGEMENT INCLUDING BREATHING TECHNIQUES, AIRWAY CLEARANCE, AND PROPER USE OF COPD MEDICATIONS. RN TO ASSESS AND TEACH, SLATE TRIMMER/TANK ERECTOR TO OBSERVE AND TEACH PATIENT/CAREGIVER ABILITY TO MONITOR AND RECORD VITAL SIGNS INCLUDING PULSE OXIMETRY AND BLOOD PRESSURE. PULSE OXIMETER AND BP MONITOR TO BE PROVIDED IF NEEDED .] Future Scheduled Test FALL REDUC TION MANAGEMENT; RN TO ASSESS AND OBSERVE, SLATE TRIMMER/TANK ERECTOR TO OBSERVE FALL RISK FACTORS AND EDUCATE PATIENT/CAREGIVER ON STRATEGIES TO MINIMIZE THE RISK OF FALLING. [code = FALL REDUCTION MANAGEMENT; RN TO ASSESS AND OBSERVE, SLATE TRIMMER/TANK ERECTOR TO OBSERVE FALL RISK FACTORS AND EDUCATE PATIENT/CAREGIVER ON STRATEGIES TO MINIMIZE THE RISK OF FALLING.] Future Scheduled Test GENITOURIN JESS MANAGEMENT; RN TO ASSESS AND TEACH, SLATE TRIMMER/TANK ERECTOR TO OBSERVE AND TEACH RELATED TO ALTERED GENITOURINARY STATUS TO MINIMIZE COMPLICATIONS AND REDUCE HOSPITALIZATION. [code = GENITOURINARY MANAGEMENT; RN TO ASSESS AND TEACH, SLATE TRIMMER/TANK ERECTOR TO OBSERVE AND TEACH RELATED TO ALTERED GENITOURINARY STATUS TO MINIMIZE COMPLICATIONS AND REDUCE HOSPITALIZATION.] Future Scheduled Test URINARY IN CONTINENCE MANAGEMENT; RN TO ASSESS AND TEACH, SLATE TRIMMER/LVNTO OBSERVE AND TEACH MANAGEMENT OF URINARY INCONTINENCE. TEACH/INSTRUCT ON PREVENTING INFECTION AND SKIN BREAKDOWN. RN/SLATE TRIMMER/TANK ERECTOR MAY INSTRUCT IN BLADDER TRAINING PROGRAM INDICATED. [code = URINARY INCONTINENCE MANAGEMENT; RN TO ASSESS AND TEACH, SLATE TRIMMER/LVNTO OBSERVE AND TEACH MANAGEMENT OF URINARY INCONTINENCE. TEACH/INSTRUCT ON PREVENTING INFECTION AND SKIN BREAKDOWN. RN/SLATE TRIMMER/TANK ERECTOR MAY INSTRUCT IN BLADDER TRAINING PROGRAM INDICATED.] Future Scheduled Test URINARY TR ACT INFECTION MANAGEMENT; RN/TANK ERECTOR/SLATE TRIMMER TO PROVIDE SKILLED TEACHING AND SELF- CARE MANAGEMENT RELATED TO UTI TO MINIMIZE COMPLICATIONS AND REDUCE THE RISK OF HOSPITALIZATION. [code = URINARY TRACT INFECTION MANAGEMENT; RN/TANK ERECTOR/SLATE TRIMMER TO PROVIDE SKILLED TEACHING AND SELF- CARE MANAGEMENT RELATED TO UTI TO MINIMIZE COMPLICATIONS AND REDUCE THE RISK OF HOSPITALIZATION.] Future Scheduled Test DIABETES M ANAGEMENT; RN TO ASSESS AND TEACH, TANK ERECTOR/SLATE TRIMMER TO OBSERVE AND TEACH INSTRUCTIONS OF DIABETIC CARE TO INCLUDE: DIET ADA SKIN CARE, SIGNS AND SYMPTOMS OF HYPO/HYPERGLYCEMIA, PROPER ADMINISTRATION OF DIABETIC MEDICATION. RN/TANK ERECTOR/SLATE TRIMMER TO INSTRUCT ON DIABETIC FOOT CARE AND MONITOR FOR SKIN LESIONS ON LOWER EXTREMITIES. BLOOD GLUCOSE TESTING DAILY FREQ. RN TO ASSESS AND TEACH, TANK ERECTOR/SLATE TRIMMER TO OBSERVE AND TEACH PATIENT/CAREGIVER ABILITY TO PERFORM AND RECORD BLOOD GLUCOSE TESTING ORDERED AND TO REPORT ABNORMAL FINDINGS TO PHYSICIAN. RN/TANK ERECTOR/SLATE TRIMMER MAY PERFORM BLOOD GLUCOSE TEST NEEDED. RN/TANK ERECTOR/SLATE TRIMMER TO REPORT TO PHYSICIAN BLOOD GLUCOSE READINGS GREATER THAN 300 OR LESS THAN 70 RN/TANK ERECTOR/SLATE TRIMMER TO INSTRUCT PATIENT ON IMPORTANCE OF HGBA1C MONITORING, KIDNEY FUNCTION TEST, EYE AND FOOT EXAMS. [code = DIABETES MANAGEMENT; RN TO ASSESS AND TEACH, TANK ERECTOR/SLATE TRIMMER TO OBSERVE AND TEACH INSTRUCTIONS OF DIABETIC CARE TO INCLUDE: DIET ADA SKIN CARE, SIGNS AND SYMPTOMS OF HYPO/HYPERGLYCEMIA, PROPER ADMINISTRATION OF DIABETIC MEDICATION. RN/TANK ERECTOR/SLATE TRIMMER TO INSTRUCT ON DIABETIC FOOT CARE AND MONITOR FOR SKIN LESIONS ON LOWER EXTREMITIES. BLOOD GLUCOSE TESTING DAILY FREQ. RN TO ASSESS AND TEACH, TANK ERECTOR/SLATE TRIMMER TO OBSERVE AND TEACH PATIENT/CAREGIVER ABILITY TO PERFORM AND RECORD BLOOD GLUCOSE TESTING ORDERED AND TO REPORT ABNORMAL FINDINGS TO PHYSICIAN. RN/TANK ERECTOR/SLATE TRIMMER MAY PERFORM BLOOD GLUCOSE TEST NEEDED. RN/TANK ERECTOR/SLATE TRIMMER TO REPORT TO PHYSICIAN BLOOD GLUCOSE READINGS GREATER THAN 300 OR LESS THAN 70 RN/TANK ERECTOR/SLATE TRIMMER TO INSTRUCT PATIENT ON IMPORTANCE OF HGBA1C MONITORING, KIDNEY FUNCTION TEST, EYE AND FOOT EXAMS.] Future Scheduled Test ANEMIA MAN AGEMENT; RN TO ASSESS AND TEACH, TANK ERECTOR/SLATE TRIMMER TO OBSERVE AND TEACH AND PROVIDE EDUCATION ON ANEMIA. [code = ANEMIA MANAGEMENT; RN TO ASSESS AND TEACH, TANK ERECTOR/SLATE TRIMMER TO OBSERVE AND TEACH AND PROVIDE EDUCATION ON ANEMIA.] Future Scheduled Test GASTROINTE STINAL MANAGEMENT; RN TO ASSESS AND TEACH, TANK ERECTOR/SLATE TRIMMER TO OBSERVE AND TEACH RELATED TO ALTERED GASTROINTESTINAL STATUS TO MINIMIZE COMPLICATIONS AND REDUCE HOSPITALIZATION. [code = GASTROINTESTINAL MANAGEMENT; RN TO ASSESS AND TEACH, TANK ERECTOR/SLATE TRIMMER TO OBSERVE AND TEACH RELATED TO ALTERED GASTROINTESTINAL STATUS TO MINIMIZE COMPLICATIONS AND REDUCE HOSPITALIZATION.] Future Scheduled Test ENTERAL FE EDING/CARE AND TEACHING; RN/TANK ERECTOR/SLATE TRIMMER TO PERFORM AND INSTRUCT IN MANAGEMENT OF [...] RESIDUAL [code = ENTERAL FEEDING/CARE AND TEACHING; RN/TANK ERECTOR/SLATE TRIMMER TO PERFORM AND INSTRUCT IN MANAGEMENT OF [...] ON MANAGEMENT; RN TO ASSESS AND TEACH, TANK ERECTOR/SLATE TRIMMER TO OBSERVE AND TEACH AND INSTRUCT PATIENT / CAREGIVER ON INTERVENTIONS TO IMPROVE NUTRITIONAL INTAKE AND PATIENT WELLBEING. [code = MALNUTRITION MANAGEMENT; RN TO ASSESS AND TEACH, TANK ERECTOR/SLATE TRIMMER TO OBSERVE AND TEACH AND INSTRUCT PATIENT / CAREGIVER ON INTERVENTIONS TO IMPROVE NUTRITIONAL INTAKE AND PATIENT WELLBEING.] Future Scheduled Test PAIN MANAG EMENT; RN TO ASSESS AND TEACH, TANK ERECTOR/SLATE TRIMMER TO OBSERVE AND TEACH AND PROVIDE EDUCATION ON PAIN MANAGEMENT TECHNIQUES. [code = PAIN MANAGEMENT; RN TO ASSESS AND TEACH, TANK ERECTOR/SLATE TRIMMER TO OBSERVE AND TEACH AND PROVIDE EDUCATION ON PAIN MANAGEMENT TECHNIQUES.] Future Scheduled Test RN/SLATE TRIMMER/TANK ERECTOR TO PERFORM/TEACH PATIENT/CAREGIVER WOUND CARE TO COCCYX [...] SUPPLIES WHEN WOUND IS HEALED [code = RN/SLATE TRIMMER/TANK ERECTOR TO PERFORM/TEACH PATIENT/CAREGIVER WOUND CARE TO COCCYX [...] Scheduled Test PRN VISITS ; NUMBER OF RN/SLATE TRIMMER/TANK ERECTOR VISITS: 2 RN/SLATE TRIMMER/TANK ERECTOR TO PERFORM: 2 VISITS FOR THE FOLLOWING REASONS: CARDIAC COMPLICATIONS [code = PRN VISITS; NUMBER OF RN/SLATE TRIMMER/TANK ERECTOR VISITS: 2 RN/SLATE TRIMMER/TANK ERECTOR TO PERFORM: 2 VISITS FOR THE FOLLOWING REASONS: CARDIAC COMPLICATIONS ] Future Scheduled Test RISK FOR H OSPITALIZATION; RN TO ASSESS/TEACH, TANK ERECTOR/SLATE TRIMMER TO OBSERVE/TEACH PATIENT/CAREGIVER ON RISK FOR HOSPITALIZATION/EMERGENCY ROOM VISITS, TEACH SIGNS AND SYMPTOMS THAT PUT PATIENT AT RISK, WHEN TO NOTIFY NURSE/PHYSICIAN OF COMPLICATIONS/DECLINE, AND WHEN TO CALL 911. [code = RISK FOR HOSPITALIZATION; RN TO ASSESS/TEACH, TANK ERECTOR/SLATE TRIMMER TO OBSERVE/TEACH PATIENT/CAREGIVER ON RISK FOR HOSPITALIZATION/EMERGENCY ROOM VISITS, TEACH SIGNS AND SYMPTOMS THAT PUT PATIENT AT RISK, WHEN TO NOTIFY NURSE/PHYSICIAN OF COMPLICATIONS/DECLINE, AND WHEN TO CALL 911.] Future Scheduled Test CARDIOVASC ULAR SYSTEM; RN TO ASSESS/TEACH, SLATE TRIMMER/TANK ERECTOR TO OBSERVE/TEACH RELATED TO ALTERED CARDIOVASCULAR STATUS TO MINIMIZE COMPLICATIONS AND REDUCE HOSPITALIZATION. [code = CARDIOVASCULAR SYSTEM; RN TO ASSESS/TEACH, SLATE TRIMMER/TANK ERECTOR TO OBSERVE/TEACH RELATED TO ALTERED CARDIOVASCULAR STATUS TO MINIMIZE COMPLICATIONS AND REDUCE HOSPITALIZATION.] Future Scheduled Test HYPERTENSI ON MANAGEMENT; RN TO ASSESS AND TEACH, SLATE TRIMMER/TANK ERECTOR TO OBSERVE AND TEACH WARNING SIGNS AND SYMPTOMS TO AVOID HOSPITALIZATION. [code = HYPERTENSION MANAGEMENT; RN TO ASSESS AND TEACH, SLATE TRIMMER/TANK ERECTOR TO OBSERVE AND TEACH WARNING SIGNS AND SYMPTOMS TO AVOID HOSPITALIZATION.] Future Scheduled Test URINARY MO LECULAR TESTING PROTOCOL UP TO 2 PRN RN/SLATE TRIMMER/TANK ERECTOR VISITS MAY BE PERFORMED FOR S/S OF UTI. RN TO ASSESS, SLATE TRIMMER/TANK ERECTOR TO OBSERVE INITIATION OF UTI PROTOCOL. RN/TANK ERECTOR/SLATE TRIMMER TO INSTRUCT PATIENT AND/OR CAREGIVER ON S/S OF UTI TO REPORT TO RN/TANK ERECTOR/SLATE TRIMMER IF NEW OR WORSENING SYMPTOMS. DRINK PLENTY OF WATER THROUGHOUT THE DAY TO MAINTAIN HYDRATION (UNLESS CONTRAINDICATED.) URINATE WHEN THE URGE IS FELT, DO NOT WAIT. WASH GENITALS DAILY. WIPE FROM FRONT TO BACK AFTER HAVING A BOWEL MOVEMENT. RN/TANK ERECTOR/SLATE TRIMMER TO OBTAIN MOLECULAR URINE TESTING BY OPTION 1 OR OPTION 2 (OPTION 1) RN/TANK ERECTOR/SLATE TRIMMER TO OBTAIN U/A WITH REFLEX TO UTI PANEL (MOLECULAR) VIA CLEAN CATCH URINE AND IF UNABLE TO OBTAIN MAY PERFORM AN IN AND OUT CATH. IF PATIENT HAS INDWELLING CATHETER MAY OBTAIN FROM SAMPLING PORT. (OPTION 2) RN/TANK ERECTOR/SLATE TRIMMER TO OBTAIN UTI PANEL (MOLECULAR) VIA SWAB COLLECTION METHOD FROM ADULT BRIEF/DIAPER OR PAD IF PATIENT IS INCONTINENT. NOTIFY PROVIDER OF RESULTS AND OBTAIN FURTHER ORDERS. [code = URINARY MOLECULAR TESTING PROTOCOL UP TO 2 PRN RN/SLATE TRIMMER/TANK ERECTOR VISITS MAY BE PERFORMED FOR S/S OF UTI. RN TO ASSESS, SLATE TRIMMER/TANK ERECTOR TO OBSERVE INITIATION OF UTI PROTOCOL. RN/TANK ERECTOR/SLATE TRIMMER TO INSTRUCT PATIENT AND/OR CAREGIVER ON S/S OF UTI TO REPORT TO RN/TANK ERECTOR/SLATE TRIMMER IF NEW OR WORSENING SYMPTOMS. DRINK PLENTY OF WATER THROUGHOUT THE DAY TO MAINTAIN HYDRATION (UNLESS CONTRAINDICATED.) URINATE WHEN THE URGE IS FELT, DO NOT WAIT. WASH GENITALS DAILY. WIPE FROM FRONT TO BACK AFTER HAVING A BOWEL MOVEMENT. RN/TANK ERECTOR/SLATE TRIMMER TO OBTAIN MOLECULAR URINE TESTING BY OPTION 1 OR OPTION 2 (OPTION 1) RN/TANK ERECTOR/SLATE TRIMMER TO OBTAIN U/A WITH REFLEX TO UTI PANEL (MOLECULAR) VIA CLEAN CATCH URINE AND IF UNABLE TO OBTAIN MAY PERFORM AN IN AND OUT CATH. IF PATIENT HAS INDWELLING CATHETER MAY OBTAIN FROM SAMPLING PORT. (OPTION 2) RN/TANK ERECTOR/SLATE TRIMMER TO OBTAIN UTI PANEL (MOLECULAR) VIA SWAB COLLECTION METHOD FROM ADULT BRIEF/DIAPER OR PAD IF PATIENT IS INCONTINENT. NOTIFY PROVIDER OF RESULTS AND OBTAIN FURTHER ORDERS.] Future Scheduled Test ARRHYTHMIA MANAGEMENT; RN TO ASSESS AND TEACH, SLATE TRIMMER/TANK ERECTOR TO OBSERVE AND TEACH WARNING SIGNS AND SYMPTOMS TO AVOID HOSPITALIZATION. [code = ARRHYTHMIA MANAGEMENT; RN TO ASSESS AND TEACH, SLATE TRIMMER/TANK ERECTOR TO OBSERVE AND TEACH WARNING SIGNS AND SYMPTOMS TO AVOID HOSPITALIZATION.] Future Scheduled Test MEDICATION MANAGEMENT; RN/SLATE TRIMMER/TANK ERECTOR TO REVIEW MEDICATIONS FOR INTERACTIONS, EFFECTIVENESS OF DRUG THERAPY, AND SIGNS/SYMPTOMS OF ADVERSE REACTIONS. MAY INSTRUCT AND REINFORCE MEDICATION TEACHING RELATED TO THE USE OF MEDICATIONS, DOSAGE, FREQUENCY, PURPOSE, SIDE EFFECTS, AND TO REPORT COMPLICATIONS. [code = MEDICATION MANAGEMENT; RN/SLATE TRIMMER/TANK ERECTOR TO REVIEW MEDICATIONS FOR INTERACTIONS, EFFECTIVENESS OF DRUG THERAPY, AND SIGNS/SYMPTOMS OF ADVERSE REACTIONS. MAY INSTRUCT AND REINFORCE MEDICATION TEACHING RELATED TO THE USE OF MEDICATIONS, DOSAGE, FREQUENCY, PURPOSE, SIDE EFFECTS, AND TO REPORT COMPLICATIONS.] Future Scheduled Test AGENCY MAY PERFORM A RESUMPTION OF CARE VISIT FOLLOWING ANY HOSPITAL ADMISSION. PT TO EVALUATE, OBSERVE / ASSESS, AND MONITOR, DIGITAL MARKETING MANAGER TO OBSERVE AND MONITOR, PROVIDE SKILLED THERAPEUTIC INTERVENTION, ACTIVITY, EDUCATION, AND TRAINING TO ADDRESS; PT/DIGITAL MARKETING MANAGER TO PROVIDE GAIT TRAINING FOR IMPROVED MOBILITY AND /OR TO NORMALIZE GAIT PATTERN NEUROMUSCULAR RE-EDUCATION / BALANCE / POSTURAL CONTROL (PT) THERAPEUTIC EXERCISES AND ESTABLISHING A HOME EXERCISE PROGRAM (PT/DIGITAL MARKETING MANAGER) PT/DIGITAL MARKETING MANAGER TO PROVIDE STAIR TRAINING SIT TO/FROM STAND TRANSFERS (PT/DIGITAL MARKETING MANAGER) PT / DIGITAL MARKETING MANAGER TO MONITOR AND EDUCATE ON OXYGEN SATURATION DURING ADLS/IADLS, NOTIFY PHYSICIAN AND/OR THE RN CLINICAL ASSET COORDINATOR FOR PHYSICIAN NOTIFICATION AND IF O2 SATS BELOW PHYSICIAN ORDERED PARAMETERS AFTER 10 MIN OF REST PT / DIGITAL MARKETING MANAGER MAY EDUCATE ON PAIN MANAGEMENT CLINICALLY INDICATED, INCLUDING NON-PHARMACOLOGICAL PAIN REDUCTION TECHNIQUES AND USE OF CRYOTHERAPY UP TO 20 MIN AT A TIME FOR PAIN MANAGEMENT 2 O 3 TIMES PER DAY TO LEFT KNEE PT / DIGITAL MARKETING MANAGER TO INSTRUCT PATIENT/CAREGIVER ON RISK FOR HOSPITALIZATION/EMERGENCY ROOM VISITS, TEACH SIGNS AND SYMPTOMS THAT PUT PATIENT AT RISK, WHEN TO NOTIFY NURSE/PHYSICIAN OF COMPLICATIONS/DECLINE, AND WHEN TO CALL 911. PT TO ASSESS / DIGITAL MARKETING MANAGER TO MONITOR CARDIO/RESPIRATORY SYSTEM; AND NOTIFY THE PHYSICIAN AND/OR THE RN CLINICAL ASSET COORDINATOR FOR PHYSICIAN NOTIFICATION FOR EARLY SIGNS AND SYMPTOMS OF EXACERBATION OR DETERIORATION. PT / DIGITAL MARKETING MANAGER TO EDUCATE ON ATRIAL FIBRILLATION SELF-MANAGEMENT. PT / DIGITAL MARKETING MANAGER TO EDUCATE ON PNEUMONIA / ASPIRATION PNEUMONIA SELF-MANAGEMENT. PT/DIGITAL MARKETING MANAGER TO IDENTIFY FALL RISK FACTORS; EDUCATE THE PATIENT/CAREGIVER ON WAYS TO REDUCE FALL RISK FACTORS AND ESTABLISH HOME EXERCISE PROGRAM TO MINIMIZE FALL RISK. MAY TEACH THE PATIENT FLOOR RECOVERY WHEN CLINICALLY APPROPRIATE PT / DIGITAL MARKETING MANAGER TO OBSERVE WOUND/INCISION AND/OR INTACT DRESSING ON COCCYX WOUND DETERIORATION, COMPLICATIONS, OR INFECTION TO PHYSICIAN AND/OR THE RN CLINICAL ASSET COORDINATOR FOR PHYSICIAN NOTIFICATION. PT / DIGITAL MARKETING MANAGER TO EDUCATE ON COPD SELF-MANAGEMENT [code = AGENCY MAY PERFORM A RESUMPTION OF CARE VISIT FOLLOWING ANY HOSPITAL ADMISSION. PT TO EVALUATE, OBSERVE / ASSESS, AND MONITOR, DIGITAL MARKETING MANAGER TO OBSERVE AND MONITOR, PROVIDE SKILLED THERAPEUTIC INTERVENTION, ACTIVITY, EDUCATION, AND TRAINING TO ADDRESS; PT/DIGITAL MARKETING MANAGER TO PROVIDE GAIT TRAINING FOR IMPROVED MOBILITY AND /OR TO NORMALIZE GAIT PATTERN NEUROMUSCULAR RE-EDUCATION / BALANCE / POSTURAL CONTROL (PT) THERAPEUTIC EXERCISES AND ESTABLISHING A HOME EXERCISE PROGRAM (PT/DIGITAL MARKETING MANAGER) PT/DIGITAL MARKETING MANAGER TO PROVIDE STAIR TRAINING SIT TO/FROM STAND TRANSFERS (PT/DIGITAL MARKETING MANAGER) PT / DIGITAL MARKETING MANAGER TO MONITOR AND EDUCATE ON OXYGEN SATURATION DURING ADLS/IADLS, NOTIFY PHYSICIAN AND/OR THE RN CLINICAL ASSET COORDINATOR FOR PHYSICIAN NOTIFICATION AND IF O2 SATS BELOW PHYSICIAN ORDERED PARAMETERS AFTER 10 MIN OF REST PT / DIGITAL MARKETING MANAGER MAY EDUCATE ON PAIN MANAGEMENT CLINICALLY INDICATED, INCLUDING NON-PHARMACOLOGICAL PAIN REDUCTION TECHNIQUES AND USE OF CRYOTHERAPY UP TO 20 MIN AT A TIME FOR PAIN MANAGEMENT 2 O 3 TIMES PER DAY TO LEFT KNEE PT / DIGITAL MARKETING MANAGER TO INSTRUCT PATIENT/CAREGIVER ON RISK FOR HOSPITALIZATION/EMERGENCY ROOM VISITS, TEACH SIGNS AND SYMPTOMS THAT PUT PATIENT AT RISK, WHEN TO NOTIFY NURSE/PHYSICIAN OF COMPLICATIONS/DECLINE, AND WHEN TO CALL 911. PT TO ASSESS / DIGITAL MARKETING MANAGER TO MONITOR CARDIO/RESPIRATORY SYSTEM; AND NOTIFY THE PHYSICIAN AND/OR THE RN CLINICAL ASSET COORDINATOR FOR PHYSICIAN NOTIFICATION FOR EARLY SIGNS AND SYMPTOMS OF EXACERBATION OR DETERIORATION. PT / DIGITAL MARKETING MANAGER TO EDUCATE ON ATRIAL FIBRILLATION SELF-MANAGEMENT. PT / DIGITAL MARKETING MANAGER TO EDUCATE ON PNEUMONIA / ASPIRATION PNEUMONIA SELF-MANAGEMENT. PT/DIGITAL MARKETING MANAGER TO IDENTIFY FALL RISK FACTORS; EDUCATE THE PATIENT/CAREGIVER ON WAYS TO REDUCE FALL RISK FACTORS AND ESTABLISH HOME EXERCISE PROGRAM TO MINIMIZE FALL RISK. MAY TEACH THE PATIENT FLOOR RECOVERY WHEN CLINICALLY APPROPRIATE PT / DIGITAL MARKETING MANAGER TO OBSERVE WOUND/INCISION AND/OR INTACT DRESSING ON COCCYX WOUND DETERIORATION, COMPLICATIONS, OR INFECTION TO PHYSICIAN AND/OR THE RN CLINICAL ASSET COORDINATOR FOR PHYSICIAN NOTIFICATION. PT / DIGITAL MARKETING MANAGER TO EDUCATE ON COPD SELF-MANAGEMENT ] Future [...] End Date/Time Encounter Type Admission Type Attending [facility] Care Department Encounter ID Discharge Date Discharge Status Discharge Condition Discharge Reason Percent Goals Met 2024-12-03 00:00:00 2025-01-31 00:00:00 Outpatient LLUV[facility] MARTI [facility] [id number]
--- OUTSIDE RECORDS SUMMARY | 2024-12-11 14:24 | XMS_ITS | Encounter Summary ---
Author Organization [facility] Address [address] [place] [id number] Care Team Providers Care Ornament Maker Hand Name Role Phone Ellen Rowley MD Primary Care Provider [phone] Annabel Borden RN Unavailable [phone] Ashwini Evangelista RN Unavailable [phone] Encounter Details Date Type Department Care Team (Late st Contact Info) Description 02/12/2024 Arecont Vision Message Enc [facility] Multispecialty Care - [address], [address] [place] [address] [employer] Provider appointment time Social History Tobacco Use Types Packs/Day Years [...] materials from doctor or pharmacy Never 11/30/2023 [facility] Utilities Answer Date Recorded In the past 12 months has e [employer], gas, oil, or water company threatened to shut off services in your home? No 10/19/2023 Humiliation, Afraid, Rape, and Kick questionnair e Answer Date Recorded Within the last year, have y ou been afraid of your partner or ex-partner? No 10/19/2023 Within the last year, have y ou been humiliated or emotionally abused in other ways by your partner or ex-partner? No Within the last year, have y ou been kicked, hit, slapped, or otherwise physically hurt by your partner or ex-partner? No 10/19/2023 Within the last year, have y ou been raped or forced to have any kind of sexual activity by your partner or ex-partner? No 10/19/2023 Social Connection and Isolation Panel [NHANES] A nswer Date Recorded In a typical week, how many times do you talk on the phone with family, friends, or neighbors? Once a week 10/19/19 How often do you get togethe r with friends or relatives? Once a week 10/19/2023 How often do you attend chur or scientology services? Never 10/19/2023 Do you belong to any clubs o r organizations such as cheondoism groups, unions, fraternal or athletic groups, or [...] care, and heating? Not hard at all 10/19/2023 PHQ-2 Answer Date Recorded Patient Health Questionnaire-2 Score 0 02/13/2024 [facility] - [...] the money to buy more. Never true 10/19/19 24 Within the past 12 months, t he food you bought just didn't last and you didn't have money to get more. Never true 10/19/2023 PRAPARE - Transportation Answer Date Re corded In the past 12 months, has l ack of transportation kept you from medical appointments or from getting medications? No 09/29 In the past 12 months, has l ack of transportation kept you from meetings, work, or from getting things needed for daily living? No 10/19/2023 Housing Stability Vital Sign Answer [...] place to sleep or slept in a chcf (including now)? No 10/19/2023 Comments No Sex and Gender Information Value Date Recorded Sex Assigned at Female 08/27/2024 10:01 AM DIRECTOR OF REVENUE Legal Sex Female 4:20 PM CDT Gender Identity Not on file Sexual Orientation Not on file documented as of this encounter Functional Status * Are you deaf or do you have serious difficulty hearing Answer Date of Assessment Author Status Yes 10/19/2023 10:00 PM VIRIDIANAT Ruthann Kumar RN Active * Are you blind or do you have serious difficulty seeing, even when wearing glasses? Answer Date of Assessment Author Status No 10/19/2023 10:00 PM Ruthann Mares RN Active * Do you have serious difficulty walking or climbing stairs? Answer Date of Assessment Author Status Yes 10/19/2023 10:00 PM Ruthann Mares RN Active * Do you have difficulty dressing or bathing? Answer Date of Assessment Author Status No 10/19/2023 10:00 PM CDT Ruthann Kumar RN Active * Because of a physical, mental, or emotional condition, do you have difficulty doing errands alone such as visiting a doctor's office or shopping? Answer Date of Assessment Author Status No 10/19/2023 10:00 PM CDT Ruthann Kumar RN Active * Over the past 2 weeks, how often have you been bothered by any of the following problems? Question Answer Date of Assessment Author Status Little interest or pleasure in doing things Not at all 02/13/2024 2:39 PM CDT Cathy Rosario MA Active Feeling down, depressed, or hopeless Not at all 02/13/2024 2:39 PM CDT Ernestina Rosario MA Active Patient Health Questionnaire-2 Score 0 02/13/2024 2:39 PM CDT Benigno Rosario MA Active * If you checked off any problems on this questionnaire so far, Question Answer Date of Assessment Author Status How difficult have these problems made it for you to do your work, take care of things at home, or get along with other people? Not difficult at all 02/13/2024 10:56 AM CDT Irma Landon MA Active documented as of this encounter Mental Status * Because of a physical, mental, or emotional condition, do you have serious difficulty concentrating, remembering, or making decisions? Answer Entry Date Author Status No 10/19/2023 10:00 PM CDT Ruthann Kumar RN Active documented in this encounter Plan of Treatment Upcoming Encounters Date Type Department Care Team (Late st Contact Info) Description 01/20/2025 12:00 PM CDT Treatment [facility] [place] [address] Ellen Rowley MD [address] [place] [address] 03/11/2025 9:40 AM CDT Office Visit [facility] Family Medicine - [place] [address] [place] [phone] Ellen Rowley MD [address] [place] [address] documented as of this encounter Goals Goal [...] documented as of this encounter Care Teams Ornament Maker Hand Relationship Specialty Start Date End Date Ellen Rowley MD [address] [place] [address] PCP - General FAMILY PRACTICE 01/28/22 Annabel Borden RN [address] [place] [address] [employer] (Ambulatory) REGISTERED NURSE 04/05/24 Ashwini Evangelista, RN [address] [facility] [address] [place] [address] Registered Nurse CARE MANAGEMENT 09/05/24 documented as of this encounter
--- OUTSIDE RECORDS SUMMARY | 2024-12-11 14:24 | XMS_ITS | Encounter Summary ---
Author Organization [facility] Address [address] [place] [address] Care Team Providers Care Merchandise Presentation Associate Name Role Phone Ellen Rowley MD Primary Care Provider Ashwini Evangelista RN Unavailable [phone] Reason for Visit * Reason Onset Date Comments Hospital Follow Up 12/11/2024 F/u wk 2 Encounter Details Date Type Department Care Team (Late st Contact Info) Description 12/11/2024 Patient Outreach [facility] Medical [address] [address] Ashwini Evangelista, RN [address] [facility] [address] [place] [id number]- Hospital Follow Up (F/u wk 2) Social History Tobacco Use Types Packs/Day Years [...] materials from doctor or pharmacy Never 11/30/2023 [facility] Utilities Answer Date Recorded In the past 12 months has th e electric, gas, oil, or water company threatened to [...] often do you attend chur ch or alevism services? Never 10/19/2023 Do you belong to any clubs o r organizations such as alevism groups, unions, fraternal or athletic groups, or [...] Recorded Patient Health Questionnaire-2 Score 0 12/09/2024 [facility] [place] [facility] Occupat ional Health - Occupational Stress [...] place to sleep or slept in a fpc (including now)? No 10/19/2023 Housing Stability Vital Sign Answer Filippo e Recorded In the last 12 months, was t here a time when you were not able to pay the mortgage or rent on time? No 09/05/2024 In the past 12 months, how m any times have you moved where you were living? 1 09/05/2024 At any time in the past 12 m [facility], were you homeless or living in a fpc (including now)? No 09/05/2024 Comments No Sex and Gender Information Value Date Recorded Sex Assigned at Female 08/27/2024 10:01 AM HAND SLITTER Legal Sex Female 4:20 PM CDT Gender [...] Notes * Ashwini Evangelista RN - 12/11/2024 1:32 PM CDT Hospital Follow Up Call TCM Week: 2 Did patient attend PCP TCM appointment? Yes (Encourage patient to fill out provider survey after PCP TCM Visit) Have follow up specialists appointments been scheduled? Yes, endo 12/11 completed. 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 See epic for lab results; labs completed Does patient have difficulty affording medication: No Brief description of patient status: (Including patient education and s/sx to be reported to care member) Spoke with spouse, noted HIPAA contact, identified self and reason for calling. States that they are just leaving the endocrinology office, noting he is reparking. Declines need for call back. Discussed physician instruction to dc sodium tablets and spouse read back instructions accurately. Describes home health and her wounds as going well. Reports that they may need to come into discuss hr withDr. Rowley. Reports she was running 108-116 in office. Reports that she has been running high 90's to low 100's with home health. Denies cp,dizziness, or palpitations. Reports her metoprolol was stopped at last pcp appt 12/02 due to b/p being lower. Spouse questioning if should restart, noting her cardiology appt isnt until January, noting he is new. Denies any new otc supplements or increase in caffeine intake. Explained would check with Dr. Chopra. Denies any additional questions or concerns at this time. Reinforced s/s to report to provider and when to seek immediate medical attention. Patient vu of instructions and appreciative of call Patient concerns or urgent matters that need addressed: see telephone encounter dated this date forphysician communication Plan of Care: Skilled home health services continue. Cc to continue to follow for tcm period. documented in this encounter Plan of Treatment Upcoming Encounters Date Type Department Care Team (Late Contact Info) Description 01/20/2025 12:00 PM CDT Treatment [facility] [place] [address] Ellen Rowley MD [facility] [place], [place] [id number] 03/11/2025 9:40 AM CDT Office Visit [facility] Medical Group Family Medicine - [place] [id number] [place] [phone] Ellen Rowley MD [facility] [place] [address] documented as of this encounter Goals Goal Patient Goal Type Associated Problems Recent Progress Patient-Stated? Author Health - patient able to perform ADLs independently Lifestyle On track(2023 11:15 AM CDT) Neelam Garcia RN Establish Plan for Symptom Monitoring Lifestyle On track(2024 1:59 PM CDT) No Ashwini Evangelista RN Consistently take medications as Prescribed Lifestyle On track(2024 1:59 PM CDT) No Jean Carlos, Ashwini F, RN documented as of this encounter Visit Diagnoses Not on filedocumented in this encounter Additional Health Concerns Assessment Noted Time PHQ-9 Depression Total Score: 1 02/26/20 22 1:57 PM CDT documented as of this encounter Care Teams Merchandise Presentation Associate Relationship Specialty Start Date End Date Ellen Rowley MD [address] [place] [address] PCP - General FAMILY PRACTICE 01/28/22 Ashwini Evangelista, RN [address] [facility] [address] [place] [address] Registered Nurse CARE MANAGEMENT 09/05/24 documented as of this encounter
--- OUTSIDE RECORDS SUMMARY | 2024-12-11 14:26 | XMS_ITS | Referral Summary ---
Author Organization [facility] [facility] Address [address] [place] [address] Care Team Providers Care Traffic Officer Name Role Phone Ellen Rowley MD Primary Care Provider Encounters Date Type Department Care Team Description 12/03/2024 Telephone [facility] Medical [facility] Post Acute Care [address] [phone] Na Mcdaniel MA 11/30/2024 Orders Only [facility] Hospitalists [address] [place] [phone] Jacob Cardona MD 11/29/2024 Orders Only [facility] Hospitalists [address] [place] [phone] Kaleigh Mercedes PA 11/29/2024 NH/SNF Visit [address] [phone] Kaleigh Mercedes PA Complete heart block (HCC) (Primary Dx); Achalasia of cardia; Essential hypertension; Atrial fibrillation, unspecified type (HCC); Postoperative hypothyroidism; Hyponatremia; Stage 2 chronic kidney disease; Anemia, unspecified type; Pressure injury of sacral region, unstageable (HCC) 11/28/2024 NH/SNF Visit [facility] Post Acute Care [address] [phone] Jacob Cardona MD Atrial fibrillation, unspecified type (HCC) (Primary Dx); Essential hypertension; Pacemaker; Achalasia of cardia 11/27/2024 9:30 AM CDT Office Visit [facility] Cardiology [address] [phone] Tabitha Washburn NP Complete heart block (HCC) (Primary Dx); Atrial fibrillation, unspecified type (HCC); Nonrheumatic mitral valve regurgitation; Essential hypertension; Dyslipidemia, goal LDL below 100; Sinus node dysfunction (HCC) 11/26/2024 NH/SNF Visit [facility] Post [facility] Care [address] [phone] Jacob Cardona MD Essential hypertension (Primary Dx); Pacemaker; Postoperative hypothyroidism; Achalasia of cardia; Atrial fibrillation, unspecified type (HCC) 11/26/2024 12:56 AM CDT - 11/26/2024 3:26 AM CDT Emergency [facility] [address] [place] [address] Toshia Tubbs MD Encounter for care related to feeding tube (Primary Dx); Gastrostomy tube skin breakdown (HCC) Discharge Disposition: Discharge to home or self care 11/25/2024 Orders Only [facility] Hospitalists [address] [place] [phone] Kaleigh Mercedes PA 11/25/2024 NH/SNF Visit [address] [phone] Kaleigh Mercedes PA Atrial fibrillation, unspecified type (HCC) (Primary Dx); Anemia, unspecified type; Stage 2 chronic kidney disease 11/24/2024 NH/SNF Visit [facility] Post [address] [phone] Jacob Cardona MD Atrial fibrillation, unspecified type (HCC) (Primary Dx); Postoperative hypothyroidism; Dysphagia, unspecified type 11/20/2024 NH/SNF Visit [facility] Medical Group Post Acute Care [address] [phone] Kaleigh Mercedes PA Atrial fibrillation, unspecified type (HCC) (Primary Dx); Achalasia of cardia; Essential hypertension 11/18/2024 NH/SNF Visit [facility] Medical [facility] Post Acute Care [address] [phone] Kaleigh Mercedes PA Essential hypertension (Primary Dx); Hyponatremia; Anemia, unspecified type 11/18/2024 Orders Only [facility] Hospitalists [address] [place] [phone] Kaleigh Mercedes PA 11/15/2024 NH/SNF Visit [facility] Medical [facility] Post Acute Care [address] [phone] Kaleigh Mercedes PA Pressure injury of sacral region, unstageable (HCC) (Primary Dx); Slow transit constipation; Complete heart block (HCC); Essential hypertension 11/14/2024 Documentation [facility] Cardiology [address] [phone] Feliciano Peguero MD Pacemaker Check 11/13/2024 Orders Only [facility] Hospitalists [address] [place] [phone] Jacob Cardona MD 11/13/2024 NH/SNF Visit [facility] Post Acute Care [address] [phone] Kaleigh Mercedes PA Complete heart block (HCC) (Primary Dx); Hyponatremia; Anemia, unspecified type; Slow transit constipation 11/11/2024 Results Follow-Up [facility] Medical [facility] Post Acute Care [address] [phone] Jacob Cardona MD 11/11/2024 NH/SNF Visit [facility] Medical [facility] Post Acute Care [address] [phone] Jacob Cardona MD Generalized weakness (Primary Dx); Atrial fibrillation, unspecified type (HCC); Complete heart block (HCC); Essential hypertension; Dyslipidemia, goal LDL below 100; Type 2 diabetes mellitus without complication, without long-term current use of insulin (HCC); Localized osteoporosis, unspecified pathological fracture presence; Moderate malnutrition; Vitamin D deficiency; Nonproliferative diabetic retinopathy (HCC); Mycobacteria, atypical; Anemia, unspecified type; Other polyneuropathy; Pacemaker; Hyperparathyroidism, primary; Acute glaucoma of right eye 11/11/2024 Orders Only [facility] Hospitalists [address] [place] [phone] Jacob Cardona MD 11/10/2024 Documentation [facility] Medical [address] [phone] Jacob Cardona MD 10/30/2024 3:24 PM CDT - 11/09/2024 4:35 PM CDT Hospital Encounter [address] [address] Raffi Desai MD Le, Francis Kiet, MD Terrell, Leslie Marie, DO Link, DO Chasity Spring, MD Jeremias Leon Md Shahin, MD Complete heart block (HCC) (Primary Dx); Atrial fibrillation, unspecified type (HCC); Tachy-lidia syndrome (HCC); Acute respiratory insufficiency; Anemia, unspecified type; At risk for sleep apnea Discharge Disposition: Discharge to [facility] 10/31/2024 Telephone [facility] Cardiology [address] [place] [phone] Feliciano Peguero MD Scheduling Appointments 10/31/2024 Orders Only [facility] Cardiology [address] [place] [phone] Feliciano Peguero MD 10/31/2024 Orders Only [facility] Cardiology [address] [place] [phone] Feliciano Peguero MD Pacemaker (Primary Dx); Complete heart block (HCC); Tachy-lidia syndrome (HCC); Syncope, unspecified syncope type; Atrial fibrillation, unspecified type (HCC) 10/31/2024 1:00 PM CDT - 10/31/2024 3:30 PM CDT Surgery [facility] EP Lab [address] [place] [phone] Feliciano Peguero MD IMPLANT DUAL CHAMBER PPM SYSTEM W/ DUAL ELECTRODES (GEN AND LEADS, NEW OR REPLACE) [id number] 10/30/2024 4:25 PM CDT - 10/30/2024 5:30 PM CDT Surgery [facility] EP Lab [address] [place] [phone] Feliciano Peguero MD INSERT TEMPORARY PACEMAKER (PPM) SINGLE LEAD [id number] 10/29/2024 Orders Only [facility] - [facility] Minimally Invasive Surgery [address] [place] [address] [address] [place], [place] [address] Iris Oviedo PENDING SALE TO [facility] 10/22/2024 12:26 PM CDT - 10/28/2024 2:21 PM CDT Hospital Encounter [address] [address] Matthew Segovia MD Bezuneh, Abraham Deneke, MD Hyponatremia (Primary Dx); Anemia, unspecified type; Achalasia of cardia Discharge Disposition: Discharge to home, home health skilled care 10/14/2024 1:18 PM CDT - 10/17/2024 3:47 PM CDT Hospital Encounter [address] [address] Isai Vogt MD Bondalapati, MD Leonel Leon Tharun, MD Saravanan, Pathanjali, MD Esophageal dysphagia (Primary Dx); Syncope, unspecified syncope type; Hyperkalemia; Hyponatremia; Pulmonary nodules Discharge Disposition: Discharge to home, home health skilled care 10/14/2024 NH/SNF Visit [facility] Medical Group Post [facility] Care [address] [phone] Jacob Cardona MD Syncope, unspecified syncope type (Primary Dx); Hyperkalemia; Achalasia, esophageal 10/14/2024 Results Follow-Up [address] [phone] Jacob Cardona MD 10/11/2024 Documentation [facility] Medical [facility] Post [facility] Care [address] [phone] Kristy Lawson NP 10/09/2024 NH/SNF Visit [facility] Post [facility] Care [address] [phone] Kaleigh Mercedes PA Anemia, unspecified type (Primary Dx); Hyperkalemia; Hyponatremia; Achalasia, esophageal 10/08/2024 12:50 PM CDT - 10/08/2024 11:59 PM CDT Hospital Encounter [facility] Diagnostic Imaging [address] [place] [address] Achalasia, esophageal Discharge Disposition: Discharge to home or self care 10/07/2024 NH/SNF Visit [facility] Care [address] [phone] Kaleigh Mercedes PA Type 2 diabetes mellitus without complication, without long-term current use of insulin (HCC) (Primary Dx); Essential hypertension; Achalasia, esophageal 10/04/2024 Documentation [facility] Medical [facility] Post [facility] Care [address] [phone] Kaleigh Mercedes PA 10/03/2024 NH/SNF Visit [facility] Medical [facility] Post [facility] Care [address] [phone] Jacob Cardona MD Postoperative hypothyroidism (Primary Dx); Moderate protein-calorie malnutrition; Achalasia, esophageal; Acute glaucoma of right eye 10/01/2024 Orders Only [facility] Medical [facility] Hospitalists [address] [place] [phone] Jacob Cardona MD 10/01/2024 NH/SNF Visit [facility] Medical [facility] Care [address] [phone] Kaleigh Mercedes PA Essential hypertension (Primary Dx); Achalasia, esophageal; Anemia, unspecified type 09/30/2024 NH/SNF Visit [facility] Medical [facility] Post [facility] Care [address] [phone] Jacob Cardona MD Generalized weakness (Primary Dx); Essential hypertension; Dyslipidemia, goal LDL below 100; Primary hyperparathyroidism; Postoperative hypothyroidism; Moderate protein-calorie malnutrition; Localized osteoporosis, unspecified pathological fracture presence; Type 2 diabetes mellitus with other specified complication, unspecified whether assisted insulin use (HCC); Nonproliferative diabetic retinopathy (HCC); Achalasia, esophageal; History of total left knee replacement (TKR); Other polyneuropathy; Acute glaucoma of right eye; Pressure injury of sacral region, unstageable (HCC) from Last 3 Months Allergies Active Allergy Reactions Criticality Noted Date Comments Cefadroxil Headache Low 04/11/2019 Lactose Unknown Low 08/25/2023 Medications latanoprost (XALATAN) 0.005 % ophthalmic solutionIndicatio ns:open angle glaucoma Administer 0.005 % into both eyes nightly Active timolol (TIMOPTIC) 0.5 % ophthalmic solution Administer 1 drop into both eyes every morning 021 Active nitroglycerin (NITROSTAT) 0.[address] 1 tablet (0.4 mg total) under the tongue every 5 (five) minutes as needed for chest pain Active senna-docusate (PERICOLACE) 8.6-50 mg Take 2 tablets by mouth nightly Active acetaminophen (TYLENOL) 325 mg tablet Take 2 tablets (650 mg total) by mouth every 4 (four) hours as needed for pain Active lidocaine (LIDODERM) 5 % Place 1 patch on the skin daily Remove & discard patch within 12 hours or as directed by MD. Active levothyroxine (SYNTHROID) 137 mcg tablet Take 1 tablet (137 mcg total) by mouth fork assembler before breakfast 30 tablet 1 025 2024 Active ferrous sulfate 325 mg (65 mg of elemental iron) tabletIndications :Iron Deficiency Anemia Take 1 tablet (325 mg total) by mouth daily with breakfast Active metoprolol (LOPRESSOR) 25 mg immediate release tablet Take 1 tablet (25 mg total) by mouth 2 (two) times a day 60 tablet Active miconazole 2 % powder Apply topically 2 (two) times a day 70 g 025 Active apixaban (ELIQUIS) 5 mg tabletIndications :Atrial fibrillation, unspecified type (HCC) Take 1 tablet (5 mg total) by mouth 2 (two) times a day 60 tablet 025 2024 Active atorvastatin (LIPITOR) 10 mg tabletIndications :Complete heart block (HCC) Take 1 tablet (10 mg total) by mouth nightly 30 tablet 025 2024 Active collagenase (SANTYL) ointmentIndicatio ns:Pressure injury of sacral region, unstageable (HCC) Apply topically daily 90 g 025 2024 Active mupirocin (BACTROBAN) 2 % ointmentIndicatio ns:Achalasia of cardia Apply topically 3 (three) times a day Apply around j tube 22 g 025 Active ondansetron ODT (ZOFRAN-ODT) 4 mg disintegrating tabletIndications :Achalasia of cardia Take 1 tablet (4 mg total) by mouth every 8 (eight) hours as needed for nausea or vomiting 20 tablet 025 Active atorvastatin (LIPITOR) 10 mg tablet Take 1 tablet (10 mg total) by mouth nightly 2024 Discontinued(R eorder) apixaban (ELIQUIS) 5 mg tablet Take 1 tablet (5 mg total) by mouth 2 (two) times a day 60 tablet 025 2024 Discontinued(R eorder) collagenase (SANTYL) ointment Apply topically daily 90 g 025 2024 Discontinued(R eorder) furosemide (LASIX) 40 mg tablet Take 1 tablet (40 mg total) by mouth daily 30 tablet 025 2024 Discontinued traZODone (DESYREL) 50 mg tablet Take 1 tablet (50 mg total) by mouth nightly as needed for sleep 30 tablet 025 2024 Discontinued(T herapy completed) esomeprazole DR (NexIUM) 20 mg granule packet for oral suspension 99 025 2024 Discontinued(T herapy completed) spironolactone (ALDACTONE) 25 mg tablet Take 1 tablet (25 mg total) by mouth daily 30 tablet 025 2024 Discontinued(T herapy completed) mupirocin (BACTROBAN) 2 % ointment Apply topically 3 (three) times a day 22 g 025 2024 Discontinued(R eorder) furosemide (LASIX) 40 mg tablet Take 1 tablet (40 mg total) by mouth daily as needed (pretibial edema) 30 tablet 11 025 2024 Discontinued(T herapy completed) Active Problems Problem Noted Date Diagnosed Date Slow transit constipation 11/13/2024 Assessment & Plan (11/15/2024 2:19 PM CDT): Much improved, now with looser stool. We will decrease Laura Colace to 1 capsule nightly, change MiraLax to p.r.n. Assessment & Plan (11/13/2024 10:54 PM CDT): We will give entire bottle of magnesium citrate, if no bowel movement in 2-4 hours recommend bisacodyl suppository. Continue Laura Colace 2 capsules q.h.s., MiraLax PRN Pacemaker 11/12/2024 Assessment & Plan (11/29/2024 6:39 AM CDT): This is currently stable. She will follow up with Cardiology and an appointment is on the books. Assessment & Plan (11/26/2024 4:26 PM CDT): She has an intention to follow up with Cardiology in 8 days. Complete heart block 10/30/2024 Assessment & Plan (11/29/2024 2:00 PM CDT): Patient follows closely with Cardiology, had recent follow-up after pacemaker placed on 11/01/2024. Recent pacemaker interrogation shows good parameters. Heart rate controlled without bradycardia on metoprolol 25 mg b.i.d.. Continue outpatient follow up with Cardiology Assessment & Plan (11/27/2024 4:30 PM CDT): - Status post dual-chamber ppm 11/01/[address] Soto - Pacemaker interrogation today showing good parameters - continue metoprolol tartrate 25 mg p.o. b.i.d. -continue quarterly device checks Assessment & Plan (11/15/2024 2:18 PM CDT): Pacer in place, incision site healing. Metoprolol has been held on several occasions due to relative hypotension. Patient denies dizziness. Changed hold parameters on metoprolol in hopes that it will be easier to give. Assessment & Plan (11/13/2024 10:52 PM CDT): Pacemaker placed incision site stable/healing. Remains on metoprolol 25 mg b.i.d. follow up with Cardiology as an outpatient. Assessment & Plan (11/12/2024 11:03 AM CDT): This is subacute recently treated. She now has permanent pacemaker. I have visualized the surgical incision site in his healing well. She will continue follow up with her cardiology team. Atrial fibrillation, unspecified type 10/30/2024 Assessment & Plan (11/29/2024 1:55 PM CDT): Heart rate well controlled with metoprolol, continue Eliquis for anticoagulation Assessment & Plan (11/29/2024 6:38 AM CDT): This is currently stable. Continue to monitor serial vital signs for evidence of RVR and continue scripting of apixaban 5 mg p.o. b.i.d., metoprolol tartrate 25 mg p.o. b.i.d.. Assessment & Plan (11/26/2024 4:29 PM CDT): We will continue apixaban 5 mg p.o. b.i.d. Assessment & Plan (11/24/2024 9:47 PM CDT): HR has been stable ranging in mid 90s to low 100s. Blood pressure remains lower, preventing ability to titrate beta-crispin. Continue metoprolol 25 mg b.i.d., Eliquis 5 mg b.i.d. for anticoagulation. Assessment & Plan (11/24/2024 2:38 PM CDT): Continue apixaban 5 mg p.o. b.i.d. Assessment & Plan (11/27/2024 4:30 PM CDT): - Chronically anticoagulated on Eliquis 5 mg p.o. b.i.d. - continue metoprolol tartrate 25 mg b.i.d. - patient is now status post dual-chamber ppm -Regular rate and rhythm heart rate 77 today on exam Assessment & Plan (11/20/2024 1:35 PM CDT): Heart rate labile ranging from 69-117, blood pressure too low to titrate beta-crispin. We will continue metoprolol 25 mg b.i.d.. Continue Eliquis for anticoagulation Assessment & Plan (11/12/2024 11:03 AM CDT): This is chronic and currently stable. Currently there is no evidence of RVR. Continue to follow up with Cardiology. Continue apixaban 5 mg p.o. b.i.d., metoprolol tartrate 25 mg p.o. b.i.d.. Multifocal pneumonia 10/22/2024 Pleural effusion, bilateral 10/22/2024 Pericardial effusion 10/22/2024 Fever 10/22/2024 Hypocalcemia 10/22/2024 Acute kidney injury superimposed on chronic kidn ey disease 10/22/2024 Skin infection at gastrostomy tube site 10/23/19 25 Syncope 10/14/2024 Assessment & Plan (10/14/2024 3:54 PM CDT): I was called to the room because of an unresponsive episode with syncope. The attending nurses were present, 911 had been called and we are arriving at the very moment. The critical access team from [facility] was also attending to the patient. She is now being transferred to the emergency room. Syncope, unspecified syncope type 10/14/2024 Hyponatremia 10/08/2024 Assessment & Plan (11/29/2024 2:02 PM CDT): Stable, ranging from 130-134, currently 132 without intervention. Patient was previously taking sodium chloride supplementation which likely led to fluid overload/lower extremity edema which then required diuretic use. She has been off both sodium chloride and diuretics with relatively stable sodium. Would recommend continue to monitor without intervention. Assessment & Plan (11/18/2024 11:24 AM CDT): Sodium stable, currently 134. Assessment & Plan (11/13/2024 10:52 PM CDT): Overall has improved over the past several months, currently 132. We will continue to monitor. Free water flushes have significantly been reduced. Assessment & Plan (10/09/2024 9:54 PM CDT): Sodium labile, currently 130. Concerned that patient is becoming dehydrated. We will increase free water flushes to 150ml q.6 hours. Follow-up labs in a.m. Generalized weakness 10/01/2024 Assessment & Plan (11/12/2024 11:01 AM CDT): I endorse admission to senior care care. The patient is at risk of injury, illness and a requirement for a higher level of care without this service. The patient needs assistance from the nurses and care team for all activities of daily living including dressing, hygeine of person and toilet, safe transfer and mobility, dietary needs, medication administration, and grooming. The patient will need physical and occupational therapy to progress to a safer level of care. Assessment & Plan (10/01/2024 9:52 AM ELECTRON GUN INSPECTOR): I endorse admission to senior care care. The patient is at risk of injury, illness and a requirement for a higher level of care without this service. The patient needs assistance from the nurses and care team for all activities of daily living including dressing, hygeine of person and toilet, safe transfer and mobility, dietary needs, medication administration, and grooming. The patient will need physical and occupational therapy to progress to a safer level of care. Pressure injury of sacral region, unstageable Assessment & Plan (11/29/2024 2:09 PM CDT): Overall unchanged, wound continues to measure 4 cm x 2.5 cm with no tunneling or undermining. Small amount of serosanguineous drainage, there is some pink granulation and necrotic tissue with adherent slough. Continue chemical debridement with Santyl, we will need nursing follow-up. Encouraged patient to offload as much as possible. Pain is controlled with p.r.n. Tylenol. Assessment & Plan (11/15/2024 2:20 PM CDT): Being followed by Dr. Kauffman. Wound currently measuring 3.8 x 2.2 cm, subcutaneous tissue exposed but no tunneling, very small amount serosanguineous drainage. There is a large amount of necrotic tissue with adherent slough. Continue aggressive offloading, clean wound with antimicrobial wound cleanser, gently dry. Apply Santyl nickel thick to wound bed. Cover in Xeroform, cover with gauze adhere with Medipore tape. Pain controlled with p.r.n. Tylenol. Patient admits that she dislikes the low air loss mattress and has asked staff to frequently to turn it off. Assessment & Plan (10/01/2024 10:08 AM ELECTRON GUN INSPECTOR): I have viewed the injury of concern. Wound care is going to follow. Anemia 10/01/2024 Assessment & Plan (11/29/2024 2:06 PM CDT): Has been labile, generally controlled, currently 7.8/24.5. Assessment & Plan (11/25/2024 2:42 PM CDT): Declined, H/H 7.6/24.1. Will hold Eliquis for a few days, resume 11/28 Assessment & Plan (11/18/2024 11:25 AM CDT): Stable, H/H 8.2/26.7 Assessment & Plan (11/13/2024 10:53 PM CDT): Some improvement, current H&H 8.1/26.1, continue to monitor Assessment & Plan (11/12/2024 11:07 AM CDT): This is chronic and currently stable. We will monitor follow up labs. Assessment & Plan (10/09/2024 10:03 PM CDT): Hemoglobin has declined, H&H 7.5/23.5. We will hold heparin, follow-up labs in a.m. Assessment & Plan (10/01/2024 2:24 PM ELECTRON GUN INSPECTOR): Hemoglobin lower but overall stable, H&H 8.2/26.0. We will continue to monitor Moderate malnutrition 09/23/2024 Assessment & Plan (11/12/2024 11:06 AM CDT): She has persistent jejunostomy tube secondary to inability to swallow secondary to achalasia. Her Sebastian is at the bedside. He notes that she is tolerating the jejunostomy feedings well and our dietitian will follow and monitor this. Follow up labs will also be completed. Likewise, Sebastian confirms that she has follow up appointment with thoracic surgery and GI at [facility]. He will retrieve the dates and times and bring those to our medical team. Assessment & Plan (10/03/2024 12:17 PM ELECTRON GUN INSPECTOR): Continue Jevity 1.5 tube feeding 60 mL/hour through the jejunostomy tube. Discussed with and dietitian. They are considering bolus feedings prior to discharging home. Assessment & Plan (10/01/2024 10:00 AM ELECTRON GUN INSPECTOR): Because of her esophageal achalasia and stenosis she is currently on jejunostomy feedings. Speech therapy will evaluate, advised, and follow. She will also be monitored and followed by our dietitian. We will continue the scripting of Jevity 1.5 60 mL/hour with the appropriate flushing. Follow up labs will be ordered. 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 Assessment & Plan (10/03/2024 12:17 PM ELECTRON GUN INSPECTOR): Continue Synthroid 112 mcg daily. Assessment & Plan (10/01/2024 9:59 AM ELECTRON GUN INSPECTOR): This is a chronic problem. We will continue levothyroxine 112 mcg daily. Pulmonary nodule 06/09/2023 Primary hyperparathyroidism 12/14/2021 Hyperthyroidism 11/24/2021 Overview (11/24/2021): Added automatically from request for surgery [id number] Acute glaucoma of right eye 05/12/2021 Assessment & Plan (11/12/2024 11:06 AM CDT): This is chronic, currently stable. Continue the scripting of latanoprost 1 drop in both eyes once daily at bedtime and timolol 1 drop in both eyes daily. Assessment & Plan (10/03/2024 12:19 PM ELECTRON GUN INSPECTOR): We will continue latanoprost and timolol as scripted Assessment & Plan (10/01/2024 10:01 AM ELECTRON GUN INSPECTOR): We will continue scripting of latanoprost 0.005%, 1 drop in both eyes daily at bedtime and timolol 0.5% 1 drop in each eye daily. Bladder infection 05/12/2021 Degenerative joint disease of upper arm 05/12/20 21 Dyslipidemia, goal LDL below 100 05/12/2021 Assessment & Plan (11/27/2024 4:30 PM CDT): - LDL 67 today which is at goal - continue atorvastatin 10 mg daily Assessment & Plan (11/12/2024 11:03 AM CDT): This is chronic, currently stable. Dietary will follow. Assessment & Plan (10/01/2024 9:59 AM ELECTRON GUN INSPECTOR): Dietary will evaluate and advise. Hemorrhoids with complication 05/12/2021 History of total left knee replacement (TKR) Left-sided abdominal pain of unknown etiology Obesity, Class I, BMI 30-34.9 05/12/2021 Recurrent urinary tract infection 05/12/2021 Abnormal barium swallow 11/20/2020 Overview (05/12/2021): Added automatically from request for surgery [id number] Achalasia of cardia 11/20/2020 Overview (05/12/2021): Added automatically from request for surgery [id number] Assessment & Plan (11/29/2024 2:05 PM CDT): With J-tube in place. Recently J-tube had become dislodged requiring replacement and now is sutured in place. Skin around this area has become macerated and rale, continue frequent dressing changes if there is drainage, application of Bactroban until healed. Patient has a follow-up today for esophageal motility study, this is in the hopes that patient will be able to have surgical intervention in the future with Dr. Miller. Nutrition has been adequate with current tube feeds and limited clear liquid oral intake. Tube feed: Nepro 45 mL/hour Assessment & Plan (11/29/2024 6:39 AM CDT): She will have esophageal motility studies at [facility] tomorrow. She will continue jejunostomy tube feedings as followed by dietary. Assessment & Plan (11/26/2024 4:29 PM CDT): She has an appointment at [facility] on Monday of this week for manometry and esophageal motility studies. This will be followed in the near future by appointment with GI for consideration of correction of her achalasia and esophageal dysfunction. This is also follow up on her ER visit from last night. I was on- call. I was initially contacted by the evening nurse because she noted that the bumper for the jejunostomy tube was about 2 in away from the skin. I advised her to advanced the tube and apply a a dressing with tape to hold it in place. I was then called by the midnight nurse because the tube appeared to be extruding. The nurse transferred Willow to the emergency room where she received excellent care from the ER staff. The tube was advanced then checked for placement. It was sutured in place. She also had redness of the skin around the stoma. She is now to receive topical miconazole cream b.i.d. and Bactroban q.8 hours. We will also continue her tube feedings as previously outlined. Assessment & Plan (11/20/2024 1:55 PM CDT): J-tube in place, patient tolerating tube feeds well. We will also tolerate small amounts of liquid oral intake, but feels too full to have increased consumption. Continues to have some difficulty with intermittent constipation, encouraged patient to utilize current medications and ask for p.r.n. if necessary. Reduced water boluses have been adequate with no evidence of dehydration, or worsening hyponatremia. Follow up with Dr. Miller as scheduled Assessment & Plan (10/14/2024 3:53 PM CDT): She is pending follow up with thoracic surgery. She is currently on a jejunostomy feeding regimen. Labs today's are reviewed. She has been following feeding regimen of Jevity 1.5, 60 mL hourly by continuous feeding and appropriate water bolus. Because of her elevated potassium the dietitians is in the process of changing to Nephro Assessment & Plan (10/09/2024 10:02 PM CDT): X-ray was unrevealing. Tolerating tube feeds well, continues to take p.o. liquid diet without difficulty. Continues to have intermittent abdominal discomfort which she describes as a dull pulling sensation and typically occurs in only certain positions. Typically relieved by Tylenol. Encourage patient to utilize Tylenol prior to bed in hopes that it will relieve pain throughout the night. Suture remains in place, now has follow-up scheduled on 11/08/2024 with thoracic surgeon Assessment & Plan (10/07/2024 6:52 PM CDT): Now with J tube. Tolerating tube feeds at recommended rate without nausea, vomiting. Also able to consume liquid diet. Patient has been complaining of a sensation that the tube is p ulling and is tender surrounding. This sensation improved with dressing changes more frequently however continues to complain of some discomfort. Encouraged patient to utilize Tylenol. Will check abd xray in am. If no resolution is found, will contact surgeon's office Assessment & Plan (10/03/2024 12:18 PM ELECTRON GUN INSPECTOR): She now has a follow up appointment scheduled with the pipe bowls paint trimmer and thoracic surgeon. Assessment & Plan (10/01/2024 2:24 PM ELECTRON GUN INSPECTOR): Status post J-tube placement. Tolerating continuous tube feeds well at a clear liquid diet. Is not able to consume a large volume of liquids. Currently without nausea, vomiting. Has not had a bowel movement in at least 3-4 days. Long discussion with the patient at the bedside about attempting bolus feedings at some point, need for follow-up in 4-[address] Miller. We will add nightly Laura Colace. Assessment & Plan (10/01/2024 10:02 AM ELECTRON GUN INSPECTOR): She currently is unable eat. She is being fed by jejunostomy tube feedings. She will follow up with her thoracic surgeon in 4-6 weeks per the discharge summary instructions. This is Dr. Miller with [facility]. She is being considered for a Heller myotomy. The social service department is arranging the follow up appointment and the and patient had been so advised. Weight loss 11/20/2020 Overview (05/12/2021): Added automatically from request for surgery [id number] Graves disease 05/25/2020 Dysphagia 04/17/2020 Overview (05/12/2021): Added automatically from request for surgery [id number] Assessment & Plan (11/24/2024 2:39 PM CDT): Continue tube feeding pending follow up with Cardiothoracic surgery Vitamin D deficiency 07/01/2019 Localized osteoporosis 08/21/2018 Osteopenia 12/12/2017 Peripheral neuropathy 08/24/2017 Nonproliferative diabetic retinopathy 05/01/2017 Hyperparathyroidism, primary 12/14/2016 Assessment & Plan (11/12/2024 11:05 AM CDT): Follow up labs are ordered. Lactose intolerance 12/14/2016 Leg swelling 11/15/2016 Osteoarthritis of knees, bilateral 02/25/2016 Knee pain, bilateral 02/16/2016 Cutaneous abscess, unspecified 06/23/2015 Hyperkalemia 06/23/2015 Assessment & Plan (10/14/2024 3:53 PM CDT): Today's labs were reviewed with the noted potassium 6.1. Before I could react, she was transferred to the ER. Assessment & Plan (10/09/2024 10:02 PM CDT): Chronic, slight worsened due to dehydration. Current potassium 5.4. We will follow-up in a.m. after increasing tube flush Urine leukocytes 02/21/2014 Diabetes mellitus 08/09/2013 Assessment & Plan (11/12/2024 11:04 AM CDT): Monitor follow up labs and point of care glucose. Currently diet controlled Assessment & Plan (10/07/2024 6:34 PM CDT): Recent A1c 4.9. Accu-Cheks ranging from 108-171. Tolerating full liquid diet, tube feeds without elevation in blood sugars. Can DC Accu-Cheks. Patient had been on oral intervention prior to hospital stay however currently does not need any intervention. Assessment & Plan (10/01/2024 10:00 AM ELECTRON GUN INSPECTOR): Follow up labs are ordered. Essential hypertension 05/29/2013 Assessment & Plan (11/29/2024 1:54 PM CDT): Blood pressure has been on lower side but overall controlled. Continue metoprolol 25 mg b.i.d. Assessment & Plan (11/29/2024 6:38 AM CDT): Continue to monitor serial vital signs. Continue the scripting of metoprolol tartrate. Assessment & Plan (11/26/2024 4:26 PM CDT):Formatting of this note might be different from [id number]|2024-12-11 14:27:00|2024-12-11 14:25:00|XMS_ITS|TREVOR ASUER|External Medical Summaries|[id number]|" Clinical Summary Created on: December 11, 2024 Willow Najera : 1950 Sex: Female Author Organization [facility] Address [address] [place] [address] Care Team Providers Care Traffic Officer Name Role Phone Ellen Rowley MD Primary Care Provider Allergies Active Allergy Reactions Criticality Noted Date Comments Cefadroxil Headache Low 04/11/2019 Lactose Unknown Low 08/25/2023 Medications latanoprost (XALATAN) 0.005 % ophthalmic solutionIndicatio ns:open angle glaucoma Administer 0.005 % into both eyes nightly Active timolol (TIMOPTIC) 0.5 % ophthalmic solution Administer 1 drop into both eyes every morning 021 Active nitroglycerin (NITROSTAT) 0.[address] 1 tablet (0.4 mg total) under the tongue every 5 (five) minutes as needed for chest pain Active senna-docusate (PERICOLACE) 8.6-50 mg Take 2 tablets by mouth nightly Active acetaminophen (TYLENOL) 325 mg tablet Take 2 tablets (650 mg total) by mouth every 4 (four) hours as needed for pain Active lidocaine (LIDODERM) 5 % Place 1 patch on the skin daily Remove & discard patch within 12 hours or as directed by MD. Active levothyroxine (SYNTHROID) 137 mcg tablet Take 1 tablet (137 mcg total) by mouth fork assembler before breakfast 30 tablet 1 025 2024 Active ferrous sulfate 325 mg (65 mg of elemental iron) tabletIndications :Iron Deficiency Anemia Take 1 tablet (325 mg total) by mouth daily with breakfast Active metoprolol (LOPRESSOR) 25 mg immediate release tablet Take 1 tablet (25 mg total) by mouth 2 (two) times a day 60 tablet 04/12/2 025 Active miconazole 2 % powder Apply topically 2 (two) times a day 70 g Active apixaban (ELIQUIS) 5 mg tabletIndications :Atrial fibrillation, unspecified type (HCC) Take 1 tablet (5 mg total) by mouth 2 (two) times a day 60 tablet 025 2024 Active atorvastatin (LIPITOR) 10 mg tabletIndications :Complete heart block (HCC) Take 1 tablet (10 mg total) by mouth nightly 30 tablet 025 2024 Active collagenase (SANTYL) ointmentIndicatio ns:Pressure injury of sacral region, unstageable (HCC) Apply topically daily 90 g 025 2024 Active mupirocin (BACTROBAN) 2 % ointmentIndicatio ns:Achalasia of cardia Apply topically 3 (three) times a day Apply around j tube 22 g Active ondansetron ODT (ZOFRAN-ODT) 4 mg disintegrating tabletIndications :Achalasia of cardia Take 1 tablet (4 mg total) by mouth every 8 (eight) hours as needed for nausea or vomiting 20 tablet Active atorvastatin (LIPITOR) 10 mg tablet Take 1 tablet (10 mg total) by mouth nightly 2024 Discontinued(R eorder) apixaban (ELIQUIS) 5 mg tablet Take 1 tablet (5 mg total) by mouth 2 (two) times a day 60 tablet 025 2024 Discontinued(R eorder) collagenase (SANTYL) ointment Apply topically daily 90 g 025 2024 Discontinued(R eorder) furosemide (LASIX) 40 mg tablet Take 1 tablet (40 mg total) by mouth daily 30 tablet 2024 Discontinued traZODone (DESYREL) 50 mg tablet Take 1 tablet (50 mg total) by mouth nightly as needed for sleep 30 tablet 025 2024 Discontinued(T herapy completed) esomeprazole DR (NexIUM) 20 mg granule packet for oral suspension 99 025 2024 Discontinued(T herapy completed) spironolactone (ALDACTONE) 25 mg tablet Take 1 tablet (25 mg total) by mouth daily 30 tablet 025 2024 Discontinued(T herapy completed) mupirocin (BACTROBAN) 2 % ointment Apply topically 3 (three) times a day 22 g 025 2024 Discontinued(R eorder) furosemide (LASIX) 40 mg tablet Take 1 tablet (40 mg total) by mouth daily as needed (pretibial edema) 30 tablet 11 025 2024 Discontinued(T herapy completed) Active Problems Problem Noted Date Diagnosed Date Slow transit constipation 11/13/2024 Assessment & Plan (11/15/2024 2:19 PM CDT): Much improved, now with looser stool. We will decrease Laura Colace to 1 capsule nightly, change MiraLax to p.r.n. Assessment & Plan (11/13/2024 10:54 PM CDT): We will give entire bottle of magnesium citrate, if no bowel movement in 2-4 hours recommend bisacodyl suppository. Continue Laura Colace 2 capsules q.h.s., MiraLax PRN Pacemaker 11/12/2024 Assessment & Plan (11/29/2024 6:39 AM CDT): This is currently stable. She will follow up with Cardiology and an appointment is on the books. Assessment & Plan (11/26/2024 4:26 PM CDT): She has an intention to follow up with Cardiology in 8 days. Complete heart block 10/30/2024 Assessment & Plan (11/29/2024 2:00 PM CDT): Patient follows closely with Cardiology, had recent follow-up after pacemaker placed on 11/01/2024. Recent pacemaker interrogation shows good parameters. Heart rate controlled without bradycardia on metoprolol 25 mg b.i.d.. Continue outpatient follow up with Cardiology Assessment & Plan (11/27/2024 4:30 PM CDT): - Status post dual-chamber ppm 11/01/[address] Soto - Pacemaker interrogation today showing good parameters - continue metoprolol tartrate 25 mg p.o. b.i.d. -continue quarterly device checks Assessment & Plan (11/15/2024 2:18 PM CDT): Pacer in place, incision site healing. Metoprolol has been held on several occasions due to relative hypotension. Patient denies dizziness. Changed hold parameters on metoprolol in hopes that it will be easier to give. Assessment & Plan (11/13/2024 10:52 PM CDT): Pacemaker placed incision site stable/healing. Remains on metoprolol 25 mg b.i.d. follow up with Cardiology as an outpatient. Assessment & Plan (11/12/2024 11:03 AM CDT): This is subacute recently treated. She now has permanent pacemaker. I have visualized the surgical incision site in his healing well. She will continue follow up with her cardiology team. Atrial fibrillation, unspecified type 10/30/2024 Assessment & Plan (11/29/2024 1:55 PM CDT): Heart rate well controlled with metoprolol, continue Eliquis for anticoagulation Assessment & Plan (11/29/2024 6:38 AM CDT): This is currently stable. Continue to monitor serial vital signs for evidence of RVR and continue scripting of apixaban 5 mg p.o. b.i.d., metoprolol tartrate 25 mg p.o. b.i.d.. Assessment & Plan (11/26/2024 4:29 PM CDT): We will continue apixaban 5 mg p.o. b.i.d. Assessment & Plan (11/24/2024 9:47 PM CDT): HR has been stable ranging in mid 90s to low 100s. Blood pressure remains lower, preventing ability to titrate beta-crispin. Continue metoprolol 25 mg b.i.d., Eliquis 5 mg b.i.d. for anticoagulation. Assessment & Plan (11/24/2024 2:38 PM CDT): Continue apixaban 5 mg p.o. b.i.d. Assessment & Plan (11/27/2024 4:30 PM CDT): - Chronically anticoagulated on Eliquis 5 mg p.o. b.i.d. - continue metoprolol tartrate 25 mg b.i.d. - patient is now status post dual-chamber ppm -Regular rate and rhythm heart rate 77 today on exam Assessment & Plan (11/20/2024 1:35 PM CDT): Heart rate labile ranging from 69-117, blood pressure too low to titrate beta-crispin. We will continue metoprolol 25 mg b.i.d.. Continue Eliquis for anticoagulation Assessment & Plan (11/12/2024 11:03 AM CDT): This is chronic and currently stable. Currently there is no evidence of RVR. Continue to follow up with Cardiology. Continue apixaban 5 mg p.o. b.i.d., metoprolol tartrate 25 mg p.o. b.i.d.. Multifocal pneumonia 10/22/2024 Pleural effusion, bilateral 10/22/2024 Pericardial effusion 10/22/2024 Fever 10/22/2024 Hypocalcemia 10/22/2024 Acute kidney injury superimposed on chronic kidn ey disease 10/22/2024 Skin infection at gastrostomy tube site 10/23/19 Syncope 10/14/2024 Assessment & Plan (10/14/2024 3:54 PM CDT): I was called to the room because of an unresponsive episode with syncope. The attending nurses were present, 911 had been called and we are arriving at the very moment. The critical access team from [facility] was also attending to the patient. She is now being transferred to the emergency room. Syncope, unspecified syncope type 10/14/2024 Hyponatremia 10/08/2024 Assessment & Plan (11/29/2024 2:02 PM CDT): Stable, ranging from 130-134, currently 132 without intervention. Patient was previously taking sodium chloride supplementation which likely led to fluid overload/lower extremity edema which then required diuretic use. She has been off both sodium chloride and diuretics with relatively stable sodium. Would recommend continue to monitor without intervention. Assessment & Plan (11/18/2024 11:24 AM CDT): Sodium stable, currently 134. Assessment & Plan (11/13/2024 10:52 PM CDT): Overall has improved over the past several months, currently 132. We will continue to monitor. Free water flushes have significantly been reduced. Assessment & Plan (10/09/2024 9:54 PM CDT): Sodium labile, currently 130. Concerned that patient is becoming dehydrated. We will increase free water flushes to 150ml q.6 hours. Follow-up labs in a.m. Generalized weakness 10/01/2024 Assessment & Plan (11/12/2024 11:01 AM CDT): I endorse admission to senior care care. The patient is at risk of injury, illness and a requirement for a higher level of care without this service. The patient needs assistance from the nurses and care team for all activities of daily living including dressing, hygeine of person and toilet, safe transfer and mobility, dietary needs, medication administration, and grooming. The patient will need physical and occupational therapy to progress to a safer level of care. Assessment & Plan (10/01/2024 9:52 AM ELECTRON GUN INSPECTOR): I endorse admission to senior care care. The patient is at risk of injury, illness and a requirement for a higher level of care without this service. The patient needs assistance from the nurses and care team for all activities of daily living including dressing, hygeine of person and toilet, safe transfer and mobility, dietary needs, medication administration, and grooming. The patient will need physical and occupational therapy to progress to a safer level of care. Pressure injury of sacral region, unstageable Assessment & Plan (11/29/2024 2:09 PM CDT): Overall unchanged, wound continues to measure 4 cm x 2.5 cm with no tunneling or undermining. Small amount of serosanguineous drainage, there is some pink granulation and necrotic tissue with adherent slough. Continue chemical debridement with Santyl, we will need nursing follow-up. Encouraged patient to offload as much as possible. Pain is controlled with p.r.n. Tylenol. Assessment & Plan (11/15/2024 2:20 PM CDT): Being followed by Dr. Kauffman. Wound currently measuring 3.8 x 2.2 cm, subcutaneous tissue exposed but no tunneling, very small amount serosanguineous drainage. There is a large amount of necrotic tissue with adherent slough. Continue aggressive offloading, clean wound with antimicrobial wound cleanser, gently dry. Apply Santyl nickel thick to wound bed. Cover in Xeroform, cover with gauze adhere with Medipore tape. Pain controlled with p.r.n. Tylenol. Patient admits that she dislikes the low air loss mattress and has asked staff to frequently to turn it off. Assessment & Plan (10/01/2024 10:08 AM ELECTRON GUN INSPECTOR): I have viewed the injury of concern. Wound care is going to follow. Anemia 10/01/2024 Assessment & Plan (11/29/2024 2:06 PM CDT): Has been labile, generally controlled, currently 7.8/24.5. Assessment & Plan (11/25/2024 2:42 PM CDT): Declined, H/H 7.6/24.1. Will hold Eliquis for a few days, resume 11/28 Assessment & Plan (11/18/2024 11:25 AM CDT): Stable, H/H 8.2/26.7 Assessment & Plan (11/13/2024 10:53 PM CDT): Some improvement, current H&H 8.1/26.1, continue to monitor Assessment & Plan (11/12/2024 11:07 AM CDT): This is chronic and currently stable. We will monitor follow up labs. Assessment & Plan (10/09/2024 10:03 PM CDT): Hemoglobin has declined, H&H 7.5/23.5. We will hold heparin, follow-up labs in a.m. Assessment & Plan (10/01/2024 2:24 PM ELECTRON GUN INSPECTOR): Hemoglobin lower but overall stable, H&H 8.2/26.0. We will continue to monitor Moderate malnutrition 09/23/2024 Assessment & Plan (11/12/2024 11:06 AM CDT): She has persistent jejunostomy tube secondary to inability to swallow secondary to achalasia. Her Sebastian is at the bedside. He notes that she is tolerating the jejunostomy feedings well and our dietitian will follow and monitor this. Follow up labs will also be completed. Likewise, Sebastian confirms that she has follow up appointment with thoracic surgery and GI at [facility]. He will retrieve the dates and times and bring those to our medical team. Assessment & Plan (10/03/2024 12:17 PM ELECTRON GUN INSPECTOR): Continue Jevity 1.5 tube feeding 60 mL/hour through the jejunostomy tube. Discussed with and dietitian. They are considering bolus feedings prior to discharging home. Assessment & Plan (10/01/2024 10:00 AM ELECTRON GUN INSPECTOR): Because of her esophageal achalasia and stenosis she is currently on jejunostomy feedings. Speech therapy will evaluate, advised, and follow. She will also be monitored and followed by our dietitian. We will continue the scripting of Jevity 1.5 60 mL/hour with the appropriate flushing. Follow up labs will be ordered. 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 Assessment & Plan (10/03/2024 12:17 PM ELECTRON GUN INSPECTOR): Continue Synthroid 112 mcg daily. Assessment & Plan (10/01/2024 9:59 AM ELECTRON GUN INSPECTOR): This is a chronic problem. We will continue levothyroxine 112 mcg daily. 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 Continue the scripting of latanoprost 1 drop in both eyes once daily at bedtime and timolol 1 drop in both eyes daily. Assessment & Plan (10/03/2024 12:19 PM ELECTRON GUN INSPECTOR): We will continue latanoprost and timolol as scripted Assessment & Plan (10/01/2024 10:01 AM ELECTRON GUN INSPECTOR): We will continue scripting of latanoprost 0.005%, 1 drop in both eyes daily at bedtime and timolol 0.5% 1 drop in each eye daily. Bladder infection 05/12/2021 Degenerative joint disease of upper arm 05/12/20 21 Dyslipidemia, goal LDL below 100 05/12/2021 Assessment & Plan (11/27/2024 4:30 PM CDT): - LDL 67 today which is at goal - continue atorvastatin 10 mg daily Assessment & Plan (11/12/2024 11:03 AM CDT): This is chronic, currently stable. Dietary will follow. Assessment & Plan (10/01/2024 9:59 AM ELECTRON GUN INSPECTOR): Dietary will evaluate and advise. Hemorrhoids with complication 05/12/2021 History of total left knee replacement (TKR) Left-sided abdominal pain of unknown etiology Obesity, Class I, BMI 30-34.9 05/12/2021 Recurrent urinary tract infection 05/12/2021 Abnormal barium swallow 11/20/2020 Overview (05/12/2021): Added automatically from request for surgery [id number] Achalasia of cardia 11/20/2020 Overview (05/12/2021): Added automatically from request for surgery [id number] Assessment & Plan (11/29/2024 2:05 PM CDT): With J-tube in place. Recently J-tube had become dislodged requiring replacement and now is sutured in place. Skin around this area has become macerated and rale, continue frequent dressing changes if there is drainage, application of Bactroban until healed. Patient has a follow-up today for esophageal motility study, this is in the hopes that patient will be able to have surgical intervention in the future with Dr. Miller. Nutrition has been adequate with current tube feeds and limited clear liquid oral intake. Tube feed: Nepro 45 mL/hour Assessment & Plan (11/29/2024 6:39 AM CDT): She will have esophageal motility studies at [facility] tomorrow. She will continue jejunostomy tube feedings as followed by dietary. Assessment & Plan (11/26/2024 4:29 PM CDT): She has an appointment at [facility] on Monday of this week for manometry and esophageal motility studies. This will be followed in the near future by appointment with GI for consideration of correction of her achalasia and esophageal dysfunction. This is also follow up on her ER visit from last night. I was on- call. I was initially contacted by the evening nurse because she noted that the bumper for the jejunostomy tube was about 2 in away from the skin. I advised her to advanced the tube and apply a a dressing with tape to hold it in place. I was then called by the midnight nurse because the tube appeared to be extruding. The nurse transferred Willow to the emergency room where she received excellent care from the ER staff. The tube was advanced then checked for placement. It was sutured in place. She also had redness of the skin around the stoma. She is now to receive topical miconazole cream b.i.d. and Bactroban q.8 hours. We will also continue her tube feedings as previously outlined. Assessment & Plan (11/20/2024 1:55 PM CDT): J-tube in place, patient tolerating tube feeds well. We will also tolerate small amounts of liquid oral intake, but feels too full to have increased consumption. Continues to have some difficulty with intermittent constipation, encouraged patient to utilize current medications and ask for p.r.n. if necessary. Reduced water boluses have been adequate with no evidence of dehydration, or worsening hyponatremia. Follow up with Dr. Miller as scheduled Assessment & Plan (10/14/2024 3:53 PM CDT): She is pending follow up with thoracic surgery. She is currently on a jejunostomy feeding regimen. Labs today's are reviewed. She has been following feeding regimen of Jevity 1.5, 60 mL hourly by continuous feeding and appropriate water bolus. Because of her elevated potassium the dietitians is in the process of changing to Nephro Assessment & Plan (10/09/2024 10:02 PM CDT): X-ray was unrevealing. Tolerating tube feeds well, continues to take p.o. liquid diet without difficulty. Continues to have intermittent abdominal discomfort which she describes as a dull pulling sensation and typically occurs in only certain positions. Typically relieved by Tylenol. Encourage patient to utilize Tylenol prior to bed in hopes that it will relieve pain throughout the night. Suture remains in place, now has follow-up scheduled on 11/08/2024 with thoracic surgeon Assessment & Plan (10/07/2024 6:52 PM CDT): Now with J tube. Tolerating tube feeds at recommended rate without nausea, vomiting. Also able to consume liquid diet. Patient has been complaining of a sensation that the tube is p ulling and is tender surrounding. This sensation improved with dressing changes more frequently however continues to complain of some discomfort. Encouraged patient to utilize Tylenol. Will check abd xray in am. If no resolution is found, will contact surgeon's office Assessment & Plan (10/03/2024 12:18 PM ELECTRON GUN INSPECTOR): She now has a follow up appointment scheduled with the pipe bowls paint trimmer and thoracic surgeon. Assessment & Plan (10/01/2024 2:24 PM ELECTRON GUN INSPECTOR): Status post J-tube placement. Tolerating continuous tube feeds well at a clear liquid diet. Is not able to consume a large volume of liquids. Currently without nausea, vomiting. Has not had a bowel movement in at least 3-4 days. Long discussion with the patient at the bedside about attempting bolus feedings at some point, need for follow-up in 4-[address] Miller. We will add nightly Laura Colace. Assessment & Plan (10/01/2024 10:02 AM ELECTRON GUN INSPECTOR): She currently is unable eat. She is being fed by jejunostomy tube feedings. She will follow up with her thoracic surgeon in 4-6 weeks per the discharge summary instructions. This is Dr. Miller with [facility]. She is being considered for a Heller myotomy. The social service department is arranging the follow up appointment and the and patient had been so advised. Weight loss 11/20/2020 Overview (05/12/2021): Added automatically from request for surgery [id number] Graves disease 05/25/2020 Dysphagia 04/17/2020 Overview (05/12/2021): Added automatically from request for surgery [id number] Assessment & Plan (11/24/2024 2:39 PM CDT): Continue tube feeding pending follow up with Cardiothoracic surgery Vitamin D deficiency 07/01/2019 Localized osteoporosis 08/21/2018 Osteopenia 12/12/2017 Peripheral neuropathy 08/24/2017 Nonproliferative diabetic retinopathy 05/01/2017 Hyperparathyroidism, primary 12/14/2016 Assessment & Plan (11/12/2024 11:05 AM CDT): Follow up labs are ordered. Lactose intolerance 12/14/2016 Leg swelling 11/15/2016 Osteoarthritis of knees, bilateral 02/25/2016 Knee pain, bilateral 02/16/2016 Cutaneous abscess, unspecified 06/23/2015 Hyperkalemia 06/23/2015 Assessment & Plan (10/14/2024 3:53 PM CDT): Today's labs were reviewed with the noted potassium 6.1. Before I could react, she was transferred to the ER. Assessment & Plan (10/09/2024 10:02 PM CDT): Chronic, slight worsened due to dehydration. Current potassium 5.4. We will follow-up in a.m. after increasing tube flush Urine leukocytes 02/21/2014 Diabetes mellitus 08/09/2013 Assessment & Plan (11/12/2024 11:04 AM CDT): Monitor follow up labs and point of care glucose. Currently diet controlled Assessment & Plan (10/07/2024 6:34 PM CDT): Recent A1c 4.9. Accu-Cheks ranging from 108-171. Tolerating full liquid diet, tube feeds without elevation in blood sugars. Can DC Accu-Cheks. Patient had been on oral intervention prior to hospital stay however currently does not need any intervention. Assessment & Plan (10/01/2024 10:00 AM ELECTRON GUN INSPECTOR): Follow up labs are ordered. Essential hypertension 05/29/2013 Assessment & Plan (11/29/2024 1:54 PM CDT): Blood pressure has been on lower side but overall controlled. Continue metoprolol 25 mg b.i.d. Assessment & Plan (11/29/2024 6:38 AM CDT): Continue to monitor serial vital signs. Continue the scripting of metoprolol tartrate. Assessment & Plan (11/26/2024 4:26 PM CDT): This is a chronic condition that is currently stable. We will continue the scripting of metoprolol tartrate 25 mg p.o. b.i.d. and we will continue to hold furosemide and Aldactone. Assessment & Plan (11/27/2024 4:30 PM CDT): 108/62 - Continue metoprolol tartrate 25 mg b.i.d., spironolactone 25 mg daily, and furosemide 40 mg daily, which we will decrease to PRN for pretibial edema Assessment & Plan (11/20/2024 1:58 PM CDT): Blood pressure remains reduced although patient is asymptomatic. We will continue metoprolol to assist with heart rate control but remain off Lasix and spironolactone. No evidence of fluid accumulation. Assessment & Plan (11/18/2024 11:18 AM CDT): BP still lower but pt asymptomatic. No edema. Will hold lasix, spironolactone remains on hold. Continue metoprolol 25mg BID. Assessment & Plan (11/15/2024 2:18 PM CDT): Blood pressure remains lower, we will hold spironolactone, reduce Lasix to 20 mg daily. Would like patient to be able to get metoprolol to assist with heart rate control Assessment & Plan (11/12/2024 11:04 AM CDT): This is currently stable. Monitor vital signs for trending. Continue the scripted furosemide, metoprolol. Assessment & Plan (10/07/2024 6:32 PM CDT): Blood pressure stable, patient asymptomatic (no dizziness/lightheadedness). Assessment & Plan (10/02/2024 8:45 AM ELECTRON GUN INSPECTOR): BP remains lower, but pt is asymptomatic. Encouraged continue clear liquid intake, monitor for orthostasis Assessment & Plan (10/01/2024 9:59 AM ELECTRON GUN INSPECTOR): We will monitor serial vital signs for trending. Our goal will be us the systolic blood pressures of 150 and a diastolic blood pressure below 90. Resolved Problems Problem Noted Date Diagnosed Date Resolved Date Pressure injury 11/14/2024 11/14/2024 Anemia 10/22/2024 11/12/2024 Well child examination 05/12/202110/01 Encounters Date Type Department Care Team Description 12/03/2024 Telephone [facility] Post Acute Care [address] [facility] [address] [place] [phone] Na Mcdaniel MA 11/30/2024 Orders Only [address] [phone] Jacob Cardona MD 11/29/2024 Orders Only [facility] Hospitalists [address] [place] [phone] Kaleigh Mercedes PA 11/29/2024 NH/SNF Visit [address] [phone] Kaleigh Mercedes PA Complete heart block (HCC) (Primary Dx); Achalasia of cardia; Essential hypertension; Atrial fibrillation, unspecified type (HCC); Postoperative hypothyroidism; Hyponatremia; Stage 2 chronic kidney disease; Anemia, unspecified type; Pressure injury of sacral region, unstageable (HCC) 11/28/2024 NH/SNF Visit [address] [phone] Jacob Cardona MD Atrial fibrillation, unspecified type (HCC) (Primary Dx); Essential hypertension; Pacemaker; Achalasia of cardia 11/27/2024 9:30 AM CDT Office Visit [facility] Cardiology [address] [phone] Tabitha Washburn NP Complete heart block (HCC) (Primary Dx); Atrial fibrillation, unspecified type (HCC); Nonrheumatic mitral valve regurgitation; Essential hypertension; Dyslipidemia, goal LDL below 100; Sinus node dysfunction (HCC) 11/26/2024 12:56 AM CDT - 11/26/2024 3:26 AM CDT Emergency [facility] [address] [place] [phone] Toshia Tubbs MD Encounter for care related to feeding tube (Primary Dx); Gastrostomy tube skin breakdown (HCC) Discharge Disposition: Discharge to home or self care 11/26/2024 NH/SNF Visit [address] [phone] Jacob Cardona MD Essential hypertension (Primary Dx); Pacemaker; Postoperative hypothyroidism; Achalasia of cardia; Atrial fibrillation, unspecified type (HCC) 11/25/2024 Orders Only [facility] Hospitalists [address] [place] [phone] Kaleigh Mercedes PA 11/25/2024 NH/SNF Visit [facility] Medical [facility] Post [address] [phone] Kaleigh Mercedes PA Atrial fibrillation, unspecified type (HCC) (Primary Dx); Anemia, unspecified type; Stage 2 chronic kidney disease 11/24/2024 NH/SNF Visit [facility] Post Acute Care [address] [phone] Jacob Cardona MD Atrial fibrillation, unspecified type (HCC) (Primary Dx); Postoperative hypothyroidism; Dysphagia, unspecified type 11/20/2024 NH/SNF Visit [facility] Post Acute Care [address] [phone] Kaleigh Mercedes PA Atrial fibrillation, unspecified type (HCC) (Primary Dx); Achalasia of cardia; Essential hypertension 11/18/2024 NH/SNF Visit [facility] Post Acute Care [address] [phone] Kaleigh Mercedes PA Essential hypertension (Primary Dx); Hyponatremia; Anemia, unspecified type 11/18/2024 Orders Only [facility] Hospitalists [address] [place] [phone] Kaleigh Mercedes PA 11/15/2024 NH/SNF Visit [facility] Post [address] [phone] Kaleigh Mercedes PA Pressure injury of sacral region, unstageable (HCC) (Primary Dx); Slow transit constipation; Complete heart block (HCC); Essential hypertension 11/14/2024 Documentation [facility] Cardiology [address] [phone] Feliciano Peguero MD Pacemaker Check 11/13/2024 Orders Only [facility] Hospitalists [address] [place] [phone] Jacob Cardona MD 11/13/2024 NH/SNF Visit [facility] Medical [facility] Post Acute Care [address] [phone] Kaleigh Mercedes PA Complete heart block (HCC) (Primary Dx); Hyponatremia; Anemia, unspecified type; Slow transit constipation 11/11/2024 Results Follow-Up [facility] Medical Group Post Acute Care [address] [phone] Jacob Cardona MD 11/11/2024 NH/SNF Visit [facility] Post Acute Care [address] [phone] Jacob Cardona MD Generalized weakness (Primary Dx); Atrial fibrillation, unspecified type (HCC); Complete heart block (HCC); Essential hypertension; Dyslipidemia, goal LDL below 100; Type 2 diabetes mellitus without complication, without long-term current use of insulin (HCC); Localized osteoporosis, unspecified pathological fracture presence; Moderate malnutrition; Vitamin D deficiency; Nonproliferative diabetic retinopathy (HCC); Mycobacteria, atypical; Anemia, unspecified type; Other polyneuropathy; Pacemaker; Hyperparathyroidism, primary; Acute glaucoma of right eye 11/11/2024 Orders Only [facility] Hospitalists [address] [place] [phone] Jacob Cardona MD 11/10/2024 Documentation [facility] Post Acute Care [address] [phone] Jacob Cardona MD 10/31/2024 1:00 PM CDT - 10/31/2024 3:30 PM CDT Surgery [facility] EP Lab [address] [place] [address] Feliciano Peguero MD IMPLANT DUAL CHAMBER PPM SYSTEM W/ DUAL ELECTRODES (GEN AND LEADS, NEW OR REPLACE) [id number] 10/31/2024 Telephone [facility] Cardiology [address] [phone] Feliciano Peguero MD Scheduling Appointments 10/31/2024 Orders Only [facility] Cardiology [facility] [address] [place] [phone] Feliciano Peguero MD 10/31/2024 Orders Only [facility] Cardiology [facility] [address] [place] [phone] Feliciano Peguero MD Pacemaker (Primary Dx); Complete heart block (HCC); Tachy-lidia syndrome (HCC); Syncope, unspecified syncope type; Atrial fibrillation, unspecified type (HCC) 10/30/2024 4:25 PM CDT - 10/30/2024 5:30 PM CDT Surgery [facility] EP Lab [address] [place] [phone] Feliciano Peguero MD INSERT TEMPORARY PACEMAKER (PPM) SINGLE LEAD [id number] 10/30/2024 3:24 PM CDT - 11/09/2024 4:35 PM CDT Hospital Encounter [facility] [address] [address] Raffi Desai MD Le, Francis Kiet, MD Terrell, Leslie Marie, DO Link, DO Chasity Spring Naveen Kumar Reddy, MD Ali, Md Shahin, MD Complete heart block (HCC) (Primary Dx); Atrial fibrillation, unspecified type (HCC); Tachy-lidia syndrome (HCC); Acute respiratory insufficiency; Anemia, unspecified type; At risk for sleep apnea Discharge Disposition: Discharge to [facility] 10/29/2024 Orders Only [facility] - [facility] Minimally Invasive Surgery [address] [facility] [address]th [address], [place] [address] Iris Oviedo Lizeth 10/22/2024 12:26 PM CDT - 10/28/2024 2:21 PM CDT Hospital Encounter [address] [phone] Matthew Segovia MD Bezuneh, Abraham Deneke, MD Hyponatremia (Primary Dx); Anemia, unspecified type; Achalasia of cardia Discharge Disposition: Discharge to home, home health skilled care 10/14/2024 1:18 PM CDT - 10/17/2024 3:47 PM CDT Hospital Encounter [address] [address] Isai Vogt MD Bondalapati, Naveen Kumar Reddy, MD Paruchuri, Tharun, MD Saravanan, Pathanjali, MD Esophageal dysphagia (Primary Dx); Syncope, unspecified syncope type; Hyperkalemia; Hyponatremia; Pulmonary nodules Discharge Disposition: Discharge to home, home health skilled care 10/14/2024 NH/SNF Visit [facility] Medical Group Post Acute Care [address] [phone] Jacob Cardona MD Syncope, unspecified syncope type (Primary Dx); Hyperkalemia; Achalasia, esophageal 10/14/2024 Results Follow-Up [facility] Medical Group Post Acute Care [address] [phone] Jacob Cardona MD 10/11/2024 Documentation [facility] Medical Group Post Acute Care [address] [phone] Kristy Lawson, NBA 10/09/2024 NH/SNF Visit [facility] Medical [facility] Post Acute Care [address] [phone] Kaleigh Mercedes PA Anemia, unspecified type (Primary Dx); Hyperkalemia; Hyponatremia; Achalasia, esophageal 10/08/2024 12:50 PM CDT - 10/08/2024 11:59 PM CDT Hospital Encounter [facility] Diagnostic Imaging [address] [place] [phone] Achalasia, esophage
[2024-12-11 15:01] LABS: Hematocrit 27.1 % (37.0-47.0); Hemoglobin 8.6 g/dL (12.0-15.0); Mean Corpuscular HGB Conc 31.7 g/dl (32-36); Mean Corpuscular Hemoglobin 31.9 pg (26-34); Mean Corpuscular Volume 100.4 fl (80-100); Mean Platelet Volume 10.8 fl (7.4-10.4); Platelet Count Result 231 k/mm3 (150-375); Red Cell Distribution Width 16.6 % (11.5-14.5); White Blood Count 6.1 K/mm3 (4.5-10.0)
[2024-12-11 15:29] LABS: Parathyroid Intact 54.5 pg/mL (14.5-75.2)
[2024-12-11 16:55] LABS: Vitamin D 25 Hydroxy 92.3 ng/mL
[2024-12-11 17:00] LABS: Alanine Aminotransferase 59 U/L (6-35); Albumin Level 3.9 g/dL (3.5-5.1); Alkaline Phosphatase 184 U/L (38-126); Anion Gap 8 mmol/L (4-12); Aspartate Amino Transferase 65 U/L (14-36); Bilirubin,Total 0.4 mg/dL (0.2-1.3); Blood Urea Nitrogen 76 mg/dL (7-17); Calcium 8.6 mg/dL (8.4-10.2); Carbon Dioxide 32 mmol/L (22-30); Chloride 99 mmol/L (98-107); Cholesterol 140 mg/dL (0-200); Estimated Glomerular Filt Rate > 60; Glucose 147 mg/dL (65-110); HDL Direct 46 mg/dL; Magnesium 2.2 mg/dL (1.6-2.3); Phosphorus 3.6 mg/dL (2.5-4.5); Potassium 3.8 mmol/L (3.4-5.0); Sodium 139 mmol/L (137-145); Triglycerides 118 mg/dL (<150)
[2024-12-11 17:11] LABS: LDL Cholesterol Direct 49 mg/dL
[2024-12-11 17:38] LABS: Creatinine Urine 13.7 mg/dL
[2024-12-11 17:43] LABS: MALB Creatinine Ratio 53.3 mg/g (0-30); Microalbumin Urine Random 7.3 mg/L (0-16.7)
[2024-12-11 18:39] LABS: Hemoglobin A1C 5.4 % (<5.7)
[2024-12-13 07:58] LABS: Thyroglobulin Antibodies <1 IU/mL (< or = 1)
== END 2024-12-11 14:13 | disposition home or self-care (01) ==
PROVIDERS: Visit Provider Internal Medicine
DX: C73 Malignant neoplasm of thyroid gland (principal); E89.0 Postprocedural hypothyroidism; E11.8 Type 2 diabetes mellitus with unspecified complications; M81.0 Age-related osteoporosis without current pathological fracture; E21.0 Primary hyperparathyroidism; Z78.9 Other specified health status
CPT/HCPCS: 36415; 80053; 80061; 82043; 82306; 83036; 83735; 83970; 84100; 84432; 84439; 84443; 85027; 86800

== ENCOUNTER 2025-01-02 12:43 | Outpatient (CLI) | payer MEDICARE, SELFPAY ==
--- NOTE | ~2025-01-02 | US_ITS ---
US soft tissue head and neck 01/02/2025 13:02 Indication: Age-related osteoporosis. Malignant neoplasm of the thyroid gland. Lymph node surveillanc e. Procedure: High-resolution ultrasound of the thyroid fossa Comparison: No prior studies for comparison. Findings: No abnormal masses in the thyroid bed. In the right neck there is a small lymph node measur ing 1.3 x 0.4 x 0.4 cm with normal fatty hilum. No discrete mass identified in the left neck. Impression: 1: Normal right cervical lymph node with fatty hilum. No suspicious masses identified in the thyroid bed. Reviewed, dictated and finalized at location A. Impression: 1: Normal right cervical lymph node with fatty hilum. No suspicious masses iden tified in the thyroid bed.
== END 2025-01-02 12:44 | disposition home or self-care (01) ==
LOC: MICIMG 12:43
PROVIDERS: PCP Internal Medicine; Visit Provider Internal Medicine
DX: M81.0 Age-related osteoporosis without current pathological fracture (principal); C73 Malignant neoplasm of thyroid gland; E03.9 Hypothyroidism, unspecified; E11.8 Type 2 diabetes mellitus with unspecified complications
CPT/HCPCS: 76536

== ENCOUNTER 2025-02-10 10:07 | Outpatient (CLI) | payer MEDICARE, SELFPAY ==
--- OUTSIDE RECORDS SUMMARY | 2025-02-10 10:15 | XMS_ITS | Clinical Summary ---
Author Organization [facility] Address [address] [place] [address] Care Team Providers Care Behavior Clinician Name Role Phone Ellen Rowley MD Primary Care Provider [phone] Allergies Active Allergy Reactions Criticality Noted Date Comments Cefadroxil Headache Low 05/29/2013 Has tolerated Zosyn, Augmentin, and Ceftriaxone previously Lactose GI Upset Low 08/25/2023 Medications latanoprost 0.005 % ophthalmic solutionIndicatio ns:glaucoma Place 1 drop into both eyes nightly at bedtime. Indications: glaucoma Active timolol (TIMOPTIC) 0.5 % ophthalmic solution Place 1 drop into both eyes daily. Active acetaminophen (TYLENOL) 325 MG tablet Take 2 tablets (650 mg total) by mouth 4 (four) times daily as needed for Pain or Fever. Active lidocaine (LIDODERM) 5 % Place 1 patch onto the skin daily. Active ferrous sulfate, 65 mg elemental, 325 (65 FE) MG tabletIndications :Iron deficiency anemia, unspecified iron deficiency anemia type Take 1 tablet (325 mg total) by mouth 2 (two) times daily. 180 tablet 1 Active Additional Information Patient taking differently:325 mg OralDaily with breakfast, Reported on 01/21/2025 collagenase (SANTYL) ointment Apply topically daily. Active metoprolol tartrate (LOPRESSOR) 25 MG tablet Take 1 tablet (25 mg total) by mouth 2 (two) times daily. Active ondansetron (ZOFRAN-ODT) 4 MG disintegrating tablet Take 1 tablet (4 mg total) by mouth. 025 Active PROTONIX 40 MG packet Take 1 packet (40 mg total) by mouth before breakfast. 025 Active nystatin (MYCOSTATIN) powderIndications :Yeast dermatitis Apply topically 3 (three) times daily. 60 g 3 025 Active mupirocin (BACTROBAN) 2 % ointmentIndicatio ns:Rash Apply topically 3 (three) times daily. 22 g 1 025 Active furosemide (LASIX) 40 MG tabletIndications :Heart failure, unspecified HF chronicity, unspecified heart failure type (CMS/HCC HHS/HCC) TAKE 1 TABLET BY MOUTH EVERY DAY 90 tablet 1 Active levothyroxine (SYNTHROID) 150 MCG tablet Take 1 tablet (150 mcg total) by mouth daily. Active apixaban (ELIQUIS) 5 MG tablet Take 1 tablet (5 mg total) by mouth 2 (two) times daily. Active atorvastatin (LIPITOR) 10 MG tabletIndications :elevated cholesterol Take 1 tablet (10 mg total) by mouth nightly at bedtime. Indications: elevated cholesterol 90 tablet 1 025 2024 Discontinued(D ose adjustment) bisacodyl (DULCOLAX) [address] 1 suppository (10 mg total) rectally daily as needed for Constipation. 025 2024 Discontinued(D iscontinued by another clinician) senna-docusate (SENOKOT-S) 8.6-50 MG tablet Take 2 tablets by mouth daily. 2024 Discontinued(D iscontinued by another clinician) nitroglycerin (NITROSTAT) 0.[address] 1 tablet (0.4 mg total) under the tongue every 5 (five) minutes as needed. 2024 Discontinued(D iscontinued by another clinician) levothyroxine (SYNTHROID) 137 MCG tablet Take 1 tablet (137 mcg total) by mouth every morning. 2024 Discontinued(D iscontinued by another clinician) spironolactone (ALDACTONE) 25 MG tablet Take 1 tablet (25 mg total) by mouth daily. 025 2024 Discontinued(D iscontinued by another clinician) esomeprazole (NEXIUM) 20 MG packet Take 20 mg by mouth every morning before breakfast. 025 2024 Discontinued(D iscontinued by another clinician) furosemide (LASIX) 40 MG tabletIndications :Heart failure, unspecified HF chronicity, unspecified heart failure type ([facility]) TAKE 1 TABLET BY MOUTH EVERY DAY 30 tablet 025 2024 Discontinued carvedilol (COREG) 6.25 MG tablet Take 1 tablet (6.25 mg total) by mouth 2 (two) times daily. 2024 Discontinued(D iscontinued by another clinician) oxyCODONE immediate release (ROXICODONE) 5 MG immediate release tablet Take 1 tablet (5 mg total) by mouth every 6 (six) hours as needed. 025 2024 Discontinued(P atient/family declined) polyethylene glycol (GLYCOLAX) packet Take 240 mLs (17 g total) by mouth daily. 025 2024 Active Problems Problem Noted Date Diagnosed Date Slow transit constipation 11/13/2024 Pacemaker 11/12/2024 Complete heart block ([facility]) Atrial fibrillation, unspecified type ([facility] H HS/HCC) 10/30/2024 Multifocal pneumonia 10/22/2024 Hypocalcemia 10/22/2024 Skin infection at gastrostomy tube site ([facility]) 10/22/2024 Pleural effusion, bilateral 10/22/2024 Pericardial effusion ([facility]) 10/22/2024 Acute kidney injury superimposed on chronic kidn ey disease 10/22/2024 Syncope 10/14/2024 Hyponatremia 10/08/2024 Pressure injury of sacral region, unstageable Generalized weakness 10/01/2024 Anemia 10/01/2024 Moderate malnutrition ([facility]) 09/23/2024 Esophageal necrosis 09/09/2024 Difficulty swallowing 09/04/2024 Esophageal foreign body 09/04/2024 Stage 3a chronic kidney disease 05/21/2024 Stage 2 chronic kidney disease 05/21/2024 Hydronephrosis 04/05/2024 Mycobacteria, 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 Postoperative hypothyroidism 01/19/2024 Senile osteopenia 01/18/2024 Sepsis ([facility]) 10/19/2023 Pneumonia 08/21/2023 Achalasia 08/21/2023 Odynophagia 08/21/2023 Pulmonary nodule 06/09/2023 T2DM (type 2 diabetes mellitus) ([facility] ) 10/27/2022 Postmenopausal osteoporosis 12/31/2021 Colitis 05/12/2021 Recurrent urinary tract infection 05/12/2021 History of total left knee replacement (TKR) Hemorrhoids with complication 05/12/2021 Acute glaucoma of right eye 05/12/2021 Achalasia, esophageal 11/20/2020 Overview (11/20/2020): Added automatically from request for surgery [id number] Abnormal barium swallow 11/20/2020 Overview (11/20/2020): Added automatically from request for surgery [id number] Achalasia of cardia 11/20/2020 Overview (12/02/2024): Added automatically from request for surgery [id number] Graves disease 05/25/2020 Dysphagia 04/17/2020 Overview (12/02/2024): Added automatically from request for surgery [id number] Added automatically from request for surgery [id number] Added automatically from request for surgery [id number] History of total right knee replacement 08/05/19 20 Osteopenia 12/12/2017 Peripheral neuropathy 08/24/2017 Nonproliferative diabetic retinopathy ([facility] HS/[facility]) 05/01/2017 Lactose intolerance 12/14/2016 Primary hyperparathyroidism ([facility]) 12/14/2016 Leg swelling 11/15/2016 Osteoarthritis of knees, bilateral 02/25/2016 GERD (gastroesophageal reflux disease) 5 Hyperkalemia 06/23/2015 Urine leukocytes 02/21/2014 HTN (hypertension) 05/29/2013 Dyslipidemia, goal LDL below 100 05/29/2013 Resolved Problems Problem Noted Date Diagnosed Date Resolved Date Hyperthyroidism 11/24/2021 04/18/2022 Overview (02/19/2022): Added automatically from request for surgery [id number] Weight loss 11/20/2020 02/19/2022 Overview (11/20/2020): Added automatically from request for surgery [id number] Vitamin D deficiency 07/01/2019 022 Localized osteoporosis 08/21/201805/08 Parathyroid abnormality ([facility]) 12/14/2016 08/19/2020 Knee pain, bilateral 02/16/2016 022 Abscess 06/23/2015 02/19/2022 Diabetes mellitus ([facility]) 08/09/2013 05/08/2023 Hypercalcemia 08/09/2013 08/19/2020 Morbid obesity 05/29/2013 02/22/2021 Encounters Date Type Department Care Team Description 02/07/2025 Scan [facility] Scanned, [facility] 02/04/2025 [facility] Scanned, [facility] 02/04/[address] [phone] Ellen Rowley MD Information 01/30/2025 Scan [facility] Scanned, [facility] 01/29/2025 Scan [facility] Scanned, [facility] 01/21/2025 3:40 PM CDT Office Visit [address] [address] Ellen Rowley MD [facility] 01/21/2025 Travel 01/21/[address] [address] Ellen Rowley MD [facility] 01/21/2025 Telephone [facility] [address] [address] [facility] [place] [address] Ellen Rowley MD Error 01/20/2025 Scan [facility] Scanned, [facility] 01/20/[address] [address] Ellen Rowley MD Medication 01/20/[address] [place] [address] [place] [address] Scanned, Doc Hospital 01/17/2025 Scan [facility] Scanned, [facility] 01/13/2025 Orders Only [address] [address] Ellen Rowley MD 01/10/[address] [address] Ellen Rowley MD Medication Problem 01/03/2025 Scan [facility] Scanned, [facility] 12/26/2024 Telephone [facility] - [address], [address] [place] [address] Carlie Robles NP Medication 12/24/2024 Scan [facility] Scanned, Doc [facility] 12/19/[address] [address] Ellen Rowley MD Refill Request 12/18/2024 Scan [facility] Scanned, [facility] 12/18/2024 MyChart Message Enc [facility] [address], [address] [place] [address] [facility] Provider Chronic Care Program (CCM) 12/18/2024 Patient Outreach [address] [place] [address] Ashwini Evangelista, RN Hospital Follow Up 12/17/2024 Scan [facility] Scanned, Doc [facility] 12/11/[address] [address] Ellen Rowley MD Problem (Heart rate) 12/11/2024 Patient Outreach [address] [address] Ashwini Evangelista RN Hospital Follow Up (F/u wk 2) 12/10/2024 Results Follow-Up [address] [address] Ellen Rowley MD LIPID PANEL, COMPREHENSIVE METABOLIC PANEL 12/09/2024 11:00 AM CDT Laboratory Only [address] [address] Ellen Rowley MD 12/09/2024 9:20 AM CDT Office Visit [address] [address] Ellen Rowley MD Diabetes; Feeding Tube Problem (Leaking around feeding tube, wants it look at.) 12/09/2024 Travel 12/06/2024 Scan [facility] Scanned, [facility] 12/06/2024 Patient Outreach [address] [address] Ashwini Evangelista, RN Hospital Follow Up (F/u wk 1--LVM x2) 12/04/[address] [address] Ellen Rowley MD Question 12/03/2024 Scan [facility] Scanned, [facility] 12/03/[address] [place] [address] Ellen Rowley MD Clarification 12/02/2024 9:20 AM CDT Office Visit [address] [place] [address] Ellen Rowley MD [facility] 12/02/[address] [address] Ellen Rowley MD Advice 12/02/2024 Travel 12/02/2024 Patient Outreach [address] [address] Ashwini Evangelista RN Hospital Follow Up (Inpatient f/u with [facility]) 12/01/2024 Scan [facility] Scanned, Doc Med [facility] 11/29/2024 Scan [facility] Scanned, Doc Med Group 11/29/[address] [address] Ellen Rowley MD [facility] 11/27/2024 Scan [facility] Scanned, Doc Med Group 11/27/2024 Patient Outreach [address] [address] Ashwini Evangelista RN Hospital Follow Up (Inpatient f/u w/[facility]); ER F/U ([facility] 11/26) 11/26/2024 Scan [facility] Scanned, Doc Med Group 11/22/2024 Patient Outreach [address] [place] [address] Ashwini Evangelista RN Hospital Follow Up (Inpatient f/u w/[facility]) 11/15/2024 Patient Outreach [address] [place] [address] Ashwini Evangelista RN Hospital Follow Up (Inpatient f/u [facility]) 11/11/2024 Patient Outreach [facility] Medical Group Family Medicine [facility] [address] [place] [address] Ashwini Evangelista RN Hospital Follow Up (TRANSFERRED to [facility] ([facility] 10/30-11/09; [facility] 11/09-present)) from Last 3 Months Immunizations Immunization Administration [...] Never Smokeless Tobacco: Never Tobacco Cessation:Counseling Given: No Alcohol Use Standard Drinks/Week Comments No 0 [...] materials from doctor or pharmacy Never 11/30/2023 [facility] Utilities Answer Date Recorded In the past 12 months has e [employer], oil, or water [employer] threatened to shut off services in your [...] often do you attend chur ch or sabianism services? Never 10/19/2023 Do you belong to any clubs o r organizations such as jehovah's witness groups, unions, fraternal or athletic groups, or [...] Recorded Patient Health Questionnaire-2 Score 0 12/09/2024 [facility] - Occupational Stress [...] place to sleep or slept in a senior care (including now)? No 10/19/2023 Housing Stability Vital Sign Answer Filippo e Recorded In the last 12 months, was t here a time when you were not able to pay the mortgage or rent on time? No 09/05/2024 In the past 12 months, how m any times have you moved where you were living? 1 09/05/2024 At any time in the past 12 m [facility], were you homeless or living in a senior care (including now)? No 09/05/2024 Comments No Sex and Gender Information Value Date Recorded Sex Assigned at Female 08/27/2024 10:01 AM RESOURCE SPECIALIST TEACHER Legal Sex Female 4:20 PM CDT Gender Identity Not on file Sexual Orientation Not on file Last Filed Vital Signs Vital Sign Reading Time Taken Comments Blood Pressure 134/82 01/21/2025 12:23 PM CDT Pulse 108 01/21/2025 12:23 PM CDT Temperature 36.6 C (97.8 F) 01/21/2025 12:23 PM CDT Respiratory Rate 16 01/21/2025 12:23 PM CDT Oxygen Saturation 99% 01/21/2025 12:23 PM CDT Inhaled Oxygen Concentration - - Weight 60.3 kg (133 lb) 01/21/2025 12:23 PM CDT Height 160 cm (5' 3) 09/04/2024 3:12 PM RESOURCE SPECIALIST TEACHER Body Mass Index 23.56 09/04/2024 3:12 PM RESOURCE SPECIALIST TEACHER Plan of Treatment Upcoming Encounters Date Type Department Care Team (Late st Contact Info) Description 02/14/2025 10:00 AM CDT Treatment [facility] Infusion Services at [facility] [address] Ellen Rowley MD [address] [place] [address] 03/11/2025 9:40 AM CDT Office Visit [facility] Medical Group Family Medicine - [place] [address] [place] [phone] Ellen Rowley MD [address] [place] [address] Health Maintenance Due Date Last Done Comments DTaP, Tdap and Td Vaccines (1 - Tdap) 1969 Annual Medicare Wellness Visit 2013 COVID-19 Vaccine (2023- season) 2024 05/20/2024, 05/20/2024, 04/18/2023, Additional history [...] 05/19/2022, 09/02/2020, Additional history exists PHQ-2 (Physician [place]) Completed 12/09/2024 Meningococcal B Vaccine Aged Out [...] track(2023 11:15 AM CDT) Neelam Garcia RN Medical Devices Implanted Type Area Elevator Constructor Hydraulic Device Identifier Shelf Expiration Date Model / Serial / Lot Knee Procedures Procedure Name Priority Date/Time Associated Diagnosis Comments COMPREHENSIVE METABOLIC PANEL Routine 12/09/2024 9:49 AM CDT Stage 3a chronic kidney disease (CMS/HCC) LIPID PANEL Routine 12/09/2024 9:49 AM CDT Mixed hyperlipidemia COLLECTION VENOUS BLOOD VENIPUNCTURE Routine 12/09/2024 Routine general medical examination at a [facility] care facility HEMOGLOBIN, GLYCOSYLATED Routine 12/02/2024 Type 2 diabetes mellitus with stage 2 chronic kidney disease, without long-term current use of insulin ([facility] HHS/HCC) COLLECT.CAPILLARY (FNGR,HEEL,EAR) Routine 12/02/2024 Type 2 diabetes mellitus with stage 2 chronic kidney disease, without long-term current use of insulin ([facility] HHS/HCC) BONE DENSITY/DEXA Routine 07/11/2024 2:0 3 PM RESOURCE SPECIALIST TEACHER Age-related osteoporosis without current pathological fracture DIABETIC RETINOPATHY EXAM (POSITIVE)(SCAN ORDER) Routine 04/15/2024 COLONOSCOPY/EGD GENERIC (SCAN ORDER) Routine 07/29/2019 HEPATITIS C RNA W/ REFLX GENOTYPE Routine 02/22/2018 10:33 AM CDT from Last 3 Months or Most Recently Relevant to Health Maintenance Results * (ABNORMAL) COMPREHENSIVE METABOLIC PANEL (12/09/2024 9:49 AM CDT) [facility] Signature SODIUM S/P/B 139 136 - 145 MMOL/L 12/09/2024 4:14 PM CDT [facility] POTASSIUM S/P/B 5.0 3.5 - 5.1 MMOL/L 12/09/2024 4:14 PM CDT [facility] CHLORIDE S/P/B 101 98 - 107 MMOL/L 12/09/2024 4:14 PM CDT [facility] CO2 30.2 21 - 32 MMOL/L 12/09/2024 4:14 PM CDT [facility] GLUCOSE 143(H) 70 - 99 MG/DL 12/09/2024 4:14 PM CDT [facility] BUN 83(H) 7 - 18 MG/DL 12/09/2024 4:14 [facility] CREATININE S/P/B 1.13(H) 0.55 - 1.02 MG/DL 12/09/2024 4:14 PM [facility] CALCIUM S/P/B 8.6 8.4 - 10.5 MG/DL 12/09/2024 4:14 PM T [facility] BILIRUBIN TOTAL S/P/B 0.3 0.2 - 1.0 MG/DL 12/09/2024 4:14 PM [facility] ALKALINE PHOSPHATASE S/P/B 290(H) 55 - 142 U/L 12/09/2024 4:14 PM T [facility] AST 54(H) 15 - 37 U/L 12/09/2024 4:14 PM T [facility] ALT 64(H) 14 - 59 U/L 12/09/2024 4:14 PM [facility] TOTAL PROTEIN S/P/B 7.8 6.4 - 8.2 G/DL 12/09/2024 4:14 PM [facility] ALBUMIN S/P/B 3.1(L) 3.4 - 5.0 G/DL 12/09/2024 4:14 PM T [facility] ANION GAP 7.8 5 - 15 MMOL/L 12/09/2024 4:14 PM T [facility] Comment:REFERENCE RANGE NOT ESTABLISHED OSMOLALITY (CALC) 316 MOSM/KG 025 4:14 PM T [facility] Comment:REFERENCE RANGE NOT ESTABLISHED GFR ESTIMATE 50(L) >90 ML/MIN/1. 73 M2 12/09/2024 4:14 PM T [facility] GFR NOTES GFR REFERENCE S: 12/09/2024 4:14 PM [facility] Comment: THE ESTIMATED GFR IS CALCULATED [...] <15 ml/min/1.73 m2 12/09/2024 9:49 AM CDT us Ellen Rowley MD LABORATORY Final Result [facility] [address] [place] [address], [place] [phone] * LIPID PANEL (12/09/2024 9:49 AM CDT) CHOLESTEROL 130 <200 MG/DL 12/09/2024 4:14 PM CDT [facility] TRIGLYCERIDES 87 <150 MG/DL 12/09/2024 4:14 PM CDT [facility] HDL 52 >40 MG/DL 12/09/2024 4:14 PM CDT [facility] LDL-C 61 <100 MG/DL 12/09/2024 4:14 PM CDT [facility] VLDL CALCULATION 17 5 - 28 MG/DL 12/09/2024 4:14 PM CDT [facility] CHOL/HDL RATIO 2.5 0.0 - 4.0 12/09/2024 4:14 PM CDT [facility] LDL/HDL 1.2 0.41 - 2.13 12/09/2024 4:14 PM CDT [facility] NON HDL CHOLESTEROL 78 <140 MG/DL 12/09/2024 4:14 PM CDT [facility] 12/09/2024 9:49 AM CDT Ellen Rowley MD LABORATORY Final Result Performing Organization Address City/[facility]/ZIP Co de Phone Number YASMEEN HEREDIAFIELD [address] [place] [address], [place] [phone] * COLLECTION VENOUS BLOOD VENIPUNCTURE (12/09/2024) us Ellen Rowley MD PROCEDURES Final Result * HEMOGLOBIN, GLYCOSYLATED (12/02/2024) HGB A1C 5.7 % DANY GAMEZ 12/02/2024 us Ellen Rowley MD LABORATORY Final Result Performing Organization Address [facility] Co de Phone Number FARHAN GAMEZLOH [address] [place] [address], [place] [phone] * COLLECT.CAPILLARY (FNGR,HEEL,EAR) (12/02/2024) Ellen Rowley MD PROCEDURES-UNRESULTED Final Resu lt Performing Organization Address City/[facility] Co de Phone Number [facility] * BONE DENSITY/DEXA (07/11/2024 2:03 PM RESOURCE SPECIALIST TEACHER) Anatomical Region Laterality Modality Bone Mammography 07/11/2024 3:00 PM RESOURCE SPECIALIST TEACHER Impressions 07/11/2024 3:01 PM RESOURCE SPECIALIST TEACHER IMPRESSION: WHO Classification: Osteoporosis RECOMMENDATIONS: All patients should ensure an adequate intake of dietary calcium and vitamin D. The NOF recommend adults under the age of 50 need 1000 mg of calcium and 400-800 IU of vitamin D daily. Effective therapy for the prevention and treatment of osteoporosis include bisphosphonates. Follow-up: People with diagnosed cases of osteoporosis or at high risk for fracture should have regular bone mineral density test. For patients eligible for Medicare, routine testing is allowed once every 2 years. Testing frequency can be increased to one year for patients who have rapidly progressing disease, those who are receiving or discontinuing medical therapy to restore bone mass, or have additional risk factors. Referred By: MICHAEL JOEL Interpreted By: Alpesh Stewart MD, 07/11/2024 3:00 PM Narrative 07/11/2024 3:01 PM RESOURCE SPECIALIST TEACHER [facility] [address] [place] [address] EXAMINATION: BONE DENSITY/DEXA INDICATIONS: Age-related osteoporosis without current pathological fracture COMPARISON: 05/19/2022 DEXA scan TECHNIQUE: DEXA bone mineral density evaluation was performed in the AP projection over the lumbar spine and both hips utilizing standard imaging techniques. ASSESSMENT: The BMD measured at the AP spine L1-L4 is 0.890 g/cm? with a T-score of -1.4. The BMD measured at the left femoral neck is 0.522 g/cm? with a T-score of -2.9. The BMD measured at the left hip is 0.656 g/cm? with a T-score of -2.3. The BMD measured at the right femoral neck is 0.547 g/cm? with a T-score of - 2.7. The BMD measured at the right hip is 0.708 g/cm? with a T-score of -1.9. FRAX 10-year fracture risk: Major Osteoporotic Fracture: 26% Hip Fracture: 10% 3.0% interval increase in bone mineral density of the hips from 2021 comparison Procedure Note Alpesh Stewart MD - 07/11/2024 [facility] [address] [place] [address] EXAMINATION: BONE DENSITY/DEXA INDICATIONS: Age-related osteoporosis without current pathologicalfracture COMPARISON: 05/19/2022 DEXA scan TECHNIQUE: DEXA bone mineral density evaluation was performed in the APprojection over the lumbar spine and both hips utilizing standard imagingtechniques. ASSESSMENT: The BMD measured at the AP spine L1-L4 is 0.890 g/cm? with a T-score of-1.4. The BMD measured at the left femoral neck is 0.522 g/cm? with a T-score of-2.9. The BMD measured at the left hip is 0.656 g/cm? with a T-score of -2.3. The BMD measured at the right femoral neck is 0.547 g/cm? with a T-scoreof -2.7. The BMD measured at the right hip is 0.708 g/cm? with a T-score of -1.9. FRAX 10-year fracture risk: Major Osteoporotic Fracture: 26% Hip Fracture: 10% 3.0% interval increase in bone mineral density of the hips from 2022comparison IMPRESSION: WHO Classification: Osteoporosis RECOMMENDATIONS: All patients should ensure an adequate intake of dietary calcium andvitamin D. The NOF recommend adults under the age of 50 need 1000 mg ofcalcium and 400-800 IU of vitamin D daily. Effective therapy for theprevention and treatment of osteoporosis include bisphosphonates. Follow-up: People with diagnosed cases of osteoporosis or at high risk for fractureshould have regular bone mineral density test. For [facility], routine testing is allowed once every 2 years. Testing frequencycan be increased to one year for patients who have rapidly progressingdisease, those who are receiving or discontinuing medical therapy torestore bone mass, or have additional risk factors. Referred By: MICHAEL JOEL Interpreted By: Alpesh Stewart MD, 07/11/2024 3:00 PM us Michael Joel MD DEXA Final Result * DIABETIC RETINOPATHY EXAM (POSITIVE) (04/15/2024) [facility] Scanned SCANNING Final Resu lt HS ONBASE * COLONOSCOPY/EGD (07/29/2019) us Documents Scanned SCANNING Final Result HS ONBASE * HEPATITIS C RNA W/ REFLX GENOTYPE (02/22/2018 10:33 AM CDT) HEPATITIS C AB 0.1 0.0 - 0.9 s/co ratio [facility] TO EPIC CONVERSION 02/22/2018 10:3 3 AM CDT 02/22/2018 10:33 AM CDT Narrative [facility] TO EPIC CONVERSION - 02/23/2018 8:36 AM CDT Result Communication: Call patient with results Ez Saenz DO LABORATORY Final Result [facility] TO EPIC CONVERSION from Last 3 Months or Most Recently Relevant to Health Maintenance Insurance [employer]ET[employer] Advance Directives * Full Code (Latest Code Status on File) Date Activated Date Inactivated Comments 09/04/2024 9:19 PM 09/09/2024 4:29 PM * Full Code Date Activated Date Inactivated Comments 04/05/2024 3:16 AM 04/05/2024 1:28 PM * Full Code Date Activated Date Inactivated Comments 11/02/2023 9:44 AM 11/17/2023 11:54 AM * Full Code Date Activated Date Inactivated Comments 10/19/2023 6:08 PM 10/24/2023 4:19 PM * Full Code Date Activated Date Inactivated Comments 10/02/2023 11:18 AM 10/19/2023 9:31 AM Care Teams Behavior Clinician Relationship Specialty Start Date End Date Ellen Rowley MD [address] [place] [address] PCP - General FAMILY PRACTICE 01/28/22
--- OUTSIDE RECORDS SUMMARY | 2025-02-10 10:16 | XMS_ITS | Data Portability ---
Author Organization [facility] IP Address [address] [place] [address] Care Team Providers Care Nursery Teacher Name Role Phone CURT KEANE Primary Care Provider [phone] Assessment No assessment recorded. Plan of Treatment Reminders Order Date Submit Date Provider Last Modified By Organization Details Last Modified Time Details Appointments None record ed. Lab None record ed. Referral None record ed. Procedures None record ed. Surgeries None record ed. Imaging None record ed. Medication Orders None record ed. Patient TargetsNo targets recorded. Patient InstructionsNo instructions recorded. Reason for Referral None Reported. Results Created Date Observation Date Name Description Value Unit Range Abnormal Flag Note LastModifiedBy Organization Detail LastModifiedTime 12/03/19 25 12/02/2024 Hemog lobin A1c/H emogl obin. total in Blood hemoglobin A1C/hemoglob in.total in blood 5.7 % HGB A1C 5.7 % MG-CERDA CELSA HE Not Available Not Available 12/16/2024 03:12:15 12/10/1912/09/2024 Compr ehens leann metab olic 1999 panel - Serum or Plasm a sodium [moles/volum e] in serum or plasma 139 text: 136 - 145 mmol/L SODIU M S/P/B 139 136 - 145 MMOL/ L 12/09 4:14 PM CDT [facility] JEROME Not Available Not Available 12/16/2024 03:12:15 12/10/19 25 12/09/2024 Compr ehens leann metab olic 1999 panel - Serum or Plasm a potassium [moles/volum e] in serum or plasma 5 text: 3.5 - 5.1 mmol/L POTAS SIUM S/P/B 5.0 3.5 - 5.1 MMOL/ L 12/09 4:14 PM CDT MG-SO AKJUANITO AGUILLON D Not Available Not Available 12/16/2024 03:12:15 12/10/19 25 12/09/2024 Compr ehens leann metab olic 1999 panel - Serum or Plasm a chloride [moles/volum e] in serum or plasma 101 text: 98 - 107 mmol/L CHLOR MANAV S/P/B 101 98 - 107 MMOL/ L 12/09 4:14 PM CDT MG-SO AKJUANITO AGUILLONKWAME D Not Available Not Available 12/16/2024 03:12:15 12/10/1912/09/2024 Compr ehens leann metab olic 1999 panel - Serum or Plasm a carbon dioxide, total [moles/volum e] in serum or plasma 30.2 text: 21 - 32 mmol/L CO2 30.2 21 - 32 MMOL/ L 12/09 4:14 PM CDT MG-SO JUANITO LOVEKWAME D Not Available Not Available 12/16/2024 03:12:15 12/10/19 25 12/09/2024 Compr ehens leann metab olic 1999 panel - Serum or Plasm a glucose [mass/volume ] in serum or plasma 143 text: 70 - 99 mg/dL high GLUCO SE 143 (H) 70 - 99 MG/DL 12/09 4:14 PM CDT MG-SO JUANITO LOVEKWAME D Not Available Not Available 12/16/2024 03:12:15 12/10/19 25 12/09/2024 Compr ehens leann metab olic 1999 panel - Serum or Plasm a urea nitrogen [mass/volume ] in serum or plasma 83 text: 7 - 18 mg/dL high BUN 83 (H) 7 - 18 MG/DL 12/09 4:14 PM CDT MG-SO AKJUANITO AGUILLONKWAME D Not Available Not Available 12/16/2024 03:12:15 12/10/19 25 12/09/2024 Compr ehens leann metab olic 1999 panel - Serum or Plasm a creatinine [mass/volume ] in serum or plasma 1.13 text: 0.55 - 1.02 mg/dL high CREAT ININE S/P/B 1.13 (H) 0.55 - 1.02 MG/DL 12/09 4:14 PM CDT [facility] JEROME Tammy Not Available Not Available 12/16/2024 03:12:15 12/10/1912/09/2024 Compr ehens leann metab olic 1999 panel - Serum or Plasm a calcium [mass/volume ] in serum or plasma 8.6 text: 8.4 - 10.5 mg/dL CALCI UM S/P/B 8.6 8.4 - 10.5 MG/DL 12/09 4:14 PM CDT [facility] JUANITO JEROMEKWAME D Not Available Not Available 12/16/2024 03:12:15 12/10/1912/09/2024 Compr ehens leann metab olic 1999 panel - Serum or Plasm a bilirubin.to dhruv [mass/volume ] in serum or plasma 0.3 text: 0.2 - 1.0 mg/dL BILIR UBIN TOTAL S/P/B 0.3 0.2 - 1.0 MG/DL 12/09 4:14 PM CDT [facility] JUANITO JEROMEKWAME D Not Available Not Available 12/16/2024 03:12:15 12/10/1912/09/2024 Compr ehens leann metab olic 1999 panel - Serum or Plasm a alkaline phosphatase [enzymatic activity/vol ume] in serum or plasma 290 U/L low: 55U/Lh igh: 142U/L high ALKAL INE PHOSP HATAS E S/P/B 290 (H) 55 - 142 U/L 12/09 4:14 PM CDT [facility] JUANITO JEROMEKWAME D Not Available Not Available 12/16/2024 03:12:15 12/10/19 25 12/09/2024 Compr ehens leann metab olic 1999 panel - Serum or Plasm a aspartate aminotransfe rase [enzymatic activity/vol ume] in serum or plasma 54 U/L low: 15U/Lh igh: 37U/L high AST 54 (H) 15 - 37 U/L 12/09 4:14 PM CDT [facility] JUANITO JEROMEIEL D Not Available Not Available 12/16/2024 03:12:15 12/10/19 25 12/09/2024 Compr ehens leann metab olic 1999 panel - Serum or Plasm a alanine aminotransfe rase [enzymatic activity/vol ume] in serum or plasma 64 U/L low: 14U/Lh igh: 59U/L high ALT 64 (H) 14 - 59 U/L 12/09 4:14 PM CDT [facility] J[facility] JEROME GFIEL D Not Available Not Available 12/16/2024 03:12:15 12/10/1912/09/2024 Compr [employer] leann metab olic 1999 panel - Serum or Plasm a protein [mass/volume ] in serum or plasma 7.8 text: 6.4 - 8.2 g/dL TOTAL PROTE IN S/P/B 7.8 6.4 - 8.2 G/DL 12/09 4:14 PM CDT [facility] J[facility] JEROME GFIEL D Not Available Not Available 12/16/2024 03:12:15 12/10/1912/09/2024 [facility] [employer] leann metab olic 1999 panel - Serum or Plasm a albumin [mass/volume ] in serum or plasma 3.1 text: 3.4 - 5.0 g/dL low ALBUM IN S/P/B 3.1 (L) 3.4 - 5.0 G/DL 12/09 4:14 PM CDT [facility] J[facility] JEROME GFIEL D Not Available Not Available 12/16/2024 03:12:15 12/10/1912/09/2024 Compr [employer] leann metab olic 1999 panel - Serum or Plasm a anion gap in serum or plasma by calculation 7.8 text: 5 - 15 mmol/L ANION GAP 7.8 5 - 15 MMOL/ L 12/09 4:14 PM CDT [facility] J[facility] JEROME GFKWAME D Not Available Not Available 12/16/2024 03:12:15 12/10/19 25 12/09/2024 Compr ehens leann metab olic 2000 panel - Serum or Plasm a osmolality of serum or plasma by calculated by sum of electrolytes 316 text: mOsm/k g OSMOL ALITY (CALC ) 316 MOSM/ KG 12/09 4:14 PM CDT MG-SO JUANITO LOVE D Not Available Not Available 12/16/2024 03:12:15 12/10/19 25 12/09/2024 Compr ehens leann metab olic 2000 panel - Serum or Plasm a glomerular filtration rate [volume rate/area] in serum, plasma or blood by creatinine-b ased formula (CKD-epi 2020)/1.73 sq M 50 text: >90 mL/min /1.73 M2 low GFR ESTIM ATE 50 (L) >90 ML/ME N/1.7 3 M2 12/09 4:14 PM CDT MG-SO JUANITO LOVE D Not Available Not Available 12/16/2024 03:12:15 12/10/19 25 12/09/2024 Compr [employer] leann metab olic 2000 panel - Serum or Plasm a GFR notes GFR REFERE NCES: GFR NOTES GFR REFER ENCES : 12/09 4:14 PM CDT MG-SO JUANITO LOVE D Not Available Not Available 12/16/2024 03:12:15 12/10/19 25 12/09/2024 [facility] [employer] leann metab olic 2000 panel - Serum or Plasm a interpretati on and review of laboratory results Abnorm al Not Available Not Available 03:12:15 12/10/19 25 12/09/2024 Lipid 1996 panel - Serum or Plasm a cholesterol [mass/volume ] in serum or plasma 130 text: <200 mg/dL KATELYN STERO L 130 <200 MG/DL 12/09 4:14 PM CDT MG-SO JUANITO LOVE D Not Available Not Available 12/16/2024 03:12:14 12/10/19 25 12/09/2024 Lipid 1996 panel - Serum or Plasm a triglyceride [mass/volume ] in serum or plasma 87 text: <150 mg/dL TRIGL YCERI ASIYA 87 <150 MG/DL 12/09 4:14 PM CDT [facility] JUANITO JEROMEKWAME Munoz Not Available Not Available 12/16/2024 03:12:14 12/10/19 25 12/09/2024 Lipid 1995 panel - Serum or Plasm a cholesterol in HDL [mass/volume ] in serum or plasma 52 text: >40 mg/dL HDL 52 >40 MG/DL 12/09 4:14 PM CDT [facility] JUANITO JEROMEKWAME Munoz Not Available Not Available 12/16/2024 03:12:14 12/10/19 25 12/09/2024 Lipid 1995 panel - Serum or Plasm a cholesterol in LDL [mass/volume ] in serum or plasma by calculation 61 text: <100 mg/dL LDL-C 61 <100 MG/DL 12/09 4:14 PM CDT [facility] OSIEL BARBERJUANITO Not Available Not Available 12/16/2024 03:12:14 12/10/19 25 12/09/2024 Lipid 1995 panel - Serum or Plasm a cholesterol in VLDL [mass/volume ] in serum or plasma by calculation 17 text: 5 - 28 mg/dL VLDL CALCU LATIO N 17 5 - 28 MG/DL 12/09 4:14 PM CDT [facility] JACKELYN JEROMEJANNETH SATHYAKWAME D Not Available Not Available 12/16/2024 03:12:14 12/10/1912/09/2024 Lipid 1996 panel - Serum or Plasm a cholesterol. total/choles terol in HDL [mass ratio] in serum or plasma 2.5 low: 0high: 4 CHOL/ HDL RATIO 2.5 0.0 - 4.0 12/09 4:14 PM CDT [facility] JACKELYN JEROMEJANNETH SATHYAKWAME D Not Available Not Available 12/16/2024 03:12:14 12/10/19 25 12/09/2024 Lipid 1996 panel - Serum or Plasm a cholesterol in LDL/choleste rol in HDL [mass ratio] in serum or plasma 1.2 low: 0.41hi gh: 2.13 LDL/H DL 1.2 0.41 - 2.13 12/09 4:14 PM CDT [facility] JU[facility]O JEROME D Not Available Not Available 12/16/2024 03:12:14 12/10/19 25 12/09/2024 Lipid 1996 panel - Serum or Plasm a cholesterol non HDL [mass/volume ] in serum or plasma 78 text: <140 mg/dL NON HDL KATELYN STERO L 78 <140 MG/DL 12/09 4:14 PM CDT [facility] JEROME GFKWAME D Not Available Not Available 12/16/2024 03:12:14 Result Notes None recorded. Medical Equipment None Reported. Allergies Allergen ID Allergen Name Allergen Category Reaction Reaction Severity Criticality Documentation Date Start Date Code Code System Note Provider Name and Address Organization Details Recorded Time 548277 cefadroxi l medicatio n Not available Not available Not available 12/16/2024 2177 [facility] JADE [place], [place] - [place] 10:04:53 Medications Name Sig Start Date Stop Date Status Note LastModified by Organization Details LastModified Time carvedilol 6.25 mg tablet Take 1 tablet twice a day by oral route. active Not Available Not Available No t Available atorvastatin 10 mg tablet TAKE 1 TABLET BY MOUTH NIGHTLY AT BEDTIME. FOR ELEVATED CHOLESTEROL active Not Available Not Available Not Available pantoprazole 40 mg tablet,delay ed release Take 1 tablet every day by oral route. active Not Available Not Available No t Available ferrous sulfate 325 mg (65 mg iron) tablet Take 1 tablet every day by oral route. active Not Available Not Available No t Available mupirocin 2 % topical ointment APPLY TOPICALLY 3 (THREE) TIMES A DAY APPLY AROUND J TUBE active Not Available Not Available No t Available nystatin 100,000 unit/gram topical powder APPLY TO AFFECTED AREA 3 TIMES A DAY active Not Available Not Available Not Available ondansetron 4 mg disintegrati ng tablet TAKE 1 TABLET BY MOUTH EVERY 8 HOURS NEEDED FOR NAUSEA AND VOMITING active Not Available Not Available No t Available metoprolol tartrate 25 mg tablet Take 1 tablet twice a day by oral route. active Not Available Not Available No t Available Eliquis 5 mg tablet TAKE 1 TABLET BY MOUTH TWICE A DAY active Not Available Not Available No t Available Vitals Date Recorded Body height Body mass index (BMI) Body weight Body temperature Respiratory rate Oxygen saturation Oxygen saturation in Arterial blood by Pulse oximetry Heart rate Systolic And Diastolic Provider Name and Address Organization Details Last Updated DateTime 5 160.02 cm 24.8 kg/m2 33805.9 3 g 89.6 [degF] 18 /min 100 % 100 % 76 /min 96/62 mm[Hg] Mariluz Kirk LPN [place] - [facility] 5 10:11:47 Social History Question Answer Notes LastModified by Organizat ion Details LastModified Time What Was The Date Of Your Most Recent Tobacco Screening? 12/16/2024 [email or web address] Information not available 12/16/2024 Sex: Unknown Functional Status None recorded. Mental Status None recorded. Family History Nothing Reported. Medical History No medical history recorded. Gynecological HistoryNo gynecological history recorded. Obstetrics History GPAL:G 0 P 0 0 0 0 Past Encounters Encounter ID Performer Location Encounter Start Date Encounter Closed Date Diagnosis/Indication Diagnosis SNOMED-CT Code Diagnosis ICD10 Code Diagnosis Note [id number] [address] MD [facility] [address] [place] [address] 12/16/2024 09:26:42 12/16/2024 11:35:47 Oropharyngeal dysphagia 18154592 R13.12 Continue feeding via PEG Gastrostomy present 3021 54857 Z93.1 Continue care Non-smoker 4978970 Z78.9 Life long , second hand smoke exposure Dyspnea on exertion 6084 5006 R06.09 PFTs, CXR History of pneumonia 161 372329 Z87.01 resolved Immunoglob ulin above reference range 650664591 R76.8 Singulair and Flonase Health Concerns Section Related Observation LastModified by Organization Detai ls LastModified Time None Recorded Concern Status LastModified by Organization Details LastModified Time None Recorded Advance Directives Directive None Recorded Payers Insurance Date Sequence Insurance Name Policy Number Policy Wilson Covered Member ID Wilson Member ID Guarantor Name 12/16/2024 1 [employer] (MEDICARE REPLACEMENT/AD VANTAGE - PPO) [id number] Willow Najera [id number] Willow Najera 12/09/2024 3 [employer] (MEDICARE SUPPLEMENT) Willow Najera [id number] Willow Mckeonuer 12/09/2024 3 [employer] [place] - [place] ON [place] AFTER 2020 (MEDICARE REPLACEMENT/AD VANTAGE - HMO) Willow Najera [id number] Willow Mckeonuer 12/09/2024 3 [employer]ET[employer] Willow Najera [id number] Willow Najera 12/09/2024 2 [employer] [place] ON [place] AFTER 2020 (MEDICAID REPLACEMENT - HMO) Willow Mckeonuer [id number] Willow Mckeonuer 12/10/2024 1 [place] Wlilow Najera [id number] Willow Dania Notes Date Note Type Note Provider Name and Address Organization Details Recorded Time 12/16/2024 text/html Patient is here for evaluation after her hospitalization [facility]. She does not eat by mouth except clear liquid. She eats by PEG tube. She has never smoked in the past. she lives in [place], [place]. [facility] . She has no pets. She is up to date with COVID-[address] MD [address] [place], [address], [place] 12/16/2024 10:58:08 OBGyn Episode No OBEpisode recorded.
--- OUTSIDE RECORDS SUMMARY | 2025-02-10 10:16 | XMS_ITS | Encounter Summary ---
Author Organization [facility] - [facility] Address [address] [place] [address] Care Team Providers Care Senior Materials Scientist Name Role Phone Ellen Rowlye MD Primary Care Provider [phone] Annabel Borden RN Unavailable [phone] Ashwini Evangelista RN Unavailable [phone] Encounter Details Date Type Department Care Team (Late st Contact Info) Description 02/12/2024 Tuizzi Message Enc [facility] Multispecialty Care - [address], [address] [place] [address] [place], [facility] Provider appointment time Social History Tobacco Use [...] materials from doctor or pharmacy Never 11/30/2023 [facility] Utilities Answer Date Recorded In the past 12 months has e [employer], gas, oil, or water company threatened to [...] How often do you attend chur or alevism services? Never 10/19/2023 Do you belong to any clubs o r organizations such as yazdanism groups, unions, fraternal or athletic groups, or [...] Recorded Patient Health Questionnaire-2 Score 0 02/13/2024 [facility] of Occupat ional Health - Occupational Stress [...] place to sleep or slept in a mcc (including now)? No 10/19/2023 Comments No Sex and Gender Information Value Date Recorded Sex Assigned at Female 08/27/2024 10:01 AM WATER AEROBICS INSTRUCTOR Legal Sex Female 4:20 PM CDT Gender [...] Assessment Author Status No 10/19/2023 10:00 PM VIRIDIANAT Ruthann Kumar RN Active * Because of [...] Health Questionnaire-2 Score 0 02/13/2024 2:39 PM VIRIDIANAT Benigno Rosario MA Active * If you [...] Date Author Status No 10/19/2023 10:00 PM VIRIDIANAT Ruthann Kumar RN Active documented in this encounter Plan of Treatment Upcoming Encounters Date Type Department Care Team (Late st Contact Info) Description 02/14/2025 10:00 AM CDT Treatment [facility] [place] [address] Ellen Rowley MD [address] [place] [address] 03/11/2025 9:40 AM CDT Office Visit [facility] Family Medicine - [place] [address] [place] [phone] Ellen Rowley MD [address] [place] [address] documented as of this encounter Goals Goal Patient Goal Type Associated Problems Recent Progress Patient-Stated? Author Health - patient able to perform ADLs independently Lifestyle On track(2023 11:15 AM CDT) Neelam Garcia RN documented as of this encounter Visit Diagnoses Not on filedocumented in this encounter Additional Health Concerns Assessment Noted Time PHQ-9 Depression Total Score: 1 02/26/20 22 1:57 PM CDT documented as of this encounter Care Teams Senior Materials Scientist Relationship Specialty Start Date End Date Ellen Rowley MD [address] [place] [address] PCP - General FAMILY PRACTICE 01/28/22 Annabel Borden RN [address] [place] [address] Weather Algorithm Scientist (Ambulatory) REGISTERED NURSE 04/05/24 Ashwini Evangelista, RN [address] [address] Registered Nurse CARE MANAGEMENT 09/05/24 12/17/24 documented as of this encounter
--- OUTSIDE RECORDS SUMMARY | 2025-02-10 10:16 | XMS_ITS | Encounter Summary ---
Author Organization [facility] Address [address] [place] [address] Care Team Providers Care Chief Dog License Inspector Name Role Phone Ellen Rowley MD Primary Care Provider [phone] Encounter Details Date Type Department Care Team (Latest Contact Info) Description 02/07/2025 Scan [facility] INFO SRVCS [...] materials from doctor or pharmacy Never 11/30/2023 [facility] Utilities Answer Date Recorded In the past 12 months has [employer], gas, oil, or water [employer] threatened to shut off services in your [...] often do you attend chur ch or holiness services? Never 10/19/2023 Do you belong to any clubs o r organizations such as sabianist groups, unions, fraternal or athletic groups, or [...] Recorded Patient Health Questionnaire-2 Score 0 12/09/2024 [facility] of Occupat ional Health - Occupational Stress [...] any time in the past 12 m [facility], were you homeless or living in a senior care (including now)? No 09/05/2024 Comments No Sex and Gender Information Value Date Recorded Sex Assigned at Female 08/27/2024 10:01 AM GLOVE PARTS CUTTER Legal Sex Female 4:20 PM CDT Gender [...] Info) Description 02/14/2025 10:00 AM CDT Treatment [facility] at [facility] [place] [address] Ellen Rowley MD [address] [place] [address] 03/11/2025 9:40 AM CDT Office Visit [facility] Family Medicine - [place] [id number] [place] [phone] Ellen Rowley MD [address] [place] [phone] documented as of this encounter Goals Goal Patient Goal Type Associated Problems Recent Progress Patient-Stated? Author Health - patient able to perform ADLs independently Lifestyle On track(2023 11:15 AM CDT) No Neelam Saleh RN documented as of this encounter Visit Diagnoses Not on filedocumented in this encounter Additional Health Concerns Assessment Noted Time PHQ-9 Depression Total Score: 1 02/26/20 22 1:57 PM CDT documented as of this encounter Care Teams Chief Dog License Inspector Relationship Specialty Start Date End Date Ellen Rowley MD [address] [place] [phone] PCP - General FAMILY PRACTICE 01/28/22 documented as of this encounter
--- OUTSIDE RECORDS SUMMARY | 2025-02-10 10:16 | XMS_ITS | Encounter Summary ---
Author Organization [facility] Address [address] [place] [address] Care Team Providers Care Plant Biology Professor Name Role Phone Ellen Rowley MD Primary Care Provider [phone] Ashwini Evangelista RN Unavailable [phone] Encounter Details Date Type Department Care Team (Latest Contact Info) Description 12/10/2024 Results Follow-Up [facility] Family Medicine [facility] [address] [place] [address] Ellen Rowley MD [address] [place] [address] LIPID PANEL, COMPREHENSIVE METABOLIC PANEL [...] materials from doctor or pharmacy Never 11/30/2023 [facility] Utilities Answer Date Recorded In the past 12 months has e [employer], [employer], oil, or water [employer] threatened to shut off services in your [...] How often do you attend chur or presybeterian services? Never 10/19/2023 Do you belong to any clubs o r organizations such as gnosticism groups, unions, fraternal or athletic groups, or [...] Recorded Patient Health Questionnaire-2 Score 0 12/09/2024 [facility] of Occupat ional Health - Occupational Stress [...] to sleep or slept in a senior living (including now)? No 10/19/2023 Housing Stability Vital Sign Answer Filippo e Recorded In the last 12 months, was t here a time when you were not able to pay the mortgage or rent on time? No 09/05/2024 In the past 12 months, how m any times have you moved where you were living? 1 09/05/2024 At any time in the past 12 m [facility], were you homeless or living in a senior living (including now)? No 09/05/2024 Comments No Sex and Gender Information Value Date Recorded Sex Assigned at Female 08/27/2024 10:01 AM MOTION STUDY TECHNICIAN Legal Sex Female 4:20 PM CDT Gender Identity Not on file Sexual Orientation Not on file documented as of this encounter Functional Status * Are you deaf or do you have serious difficulty hearing Answer Date of Assessment Author Status No 09/04/2024 10:58 PM Vciky Davies RN Active * Are you blind [...] Info) Description 02/14/2025 10:00 AM CDT Treatment [facility] [place] [address] Ellen Rowley MD [address] [place] [address] 03/11/2025 9:40 AM CDT Office Visit [facility] Family Medicine - [place] [address] [place] [address] Ellen Rowley MD [facility] [place] [address] documented as of this encounter Goals Goal Patient Goal Type Associated Problems Recent Progress Patient-Stated? Author Health - patient able to perform ADLs independently Lifestyle On track(2023 11:15 AM CDT) No [place], Neelam M, RN documented as of this encounter Visit Diagnoses Not on filedocumented in this encounter Additional Health Concerns Assessment Noted Time PHQ-9 Depression Total Score: 1 02/26/20 22 1:57 PM CDT documented as of this encounter Care Teams Plant Biology Professor Relationship Specialty Start Date End Date Ellen Rowley MD [address] [place] [address] PCP - General FAMILY PRACTICE 01/28/22 Ashwini Evangelista, RN [address] [facility] [address] [place] [address] Registered Nurse CARE MANAGEMENT 09/05/24 12/17/24 documented as of this encounter
--- OUTSIDE RECORDS SUMMARY | 2025-02-10 10:16 | XMS_ITS | Encounter Summary ---
Author Organization [facility] Address [address] [place] [address] Care Team Providers Care Quick Sketch Artist Name Role Phone Ellen Rowley MD Primary Care Provider [phone] Encounter Details Date Type Department Care Team (Late st Contact Info) Description 12/18/2024 [employer] Message Enc [facility] Medical [facility] Family Medicine [facility] [address] [facility], [address] [place] [address] [employer] Newsletter, [facility] Provider Chronic Care Program (CCM) Social History Tobacco Use Types Packs/Day Years [...] from doctor or pharmacy Never 11/30/2023 [facility] Utilities Answer Date Recorded In the [...] often do you attend chur ch or synagogue services? Never 10/19/2023 Do you belong to any clubs o r organizations such as islam groups, unions, fraternal or athletic groups, or [...] Recorded Patient Health Questionnaire-2 Score 0 12/09/2024 [facility] of Occupat ional Health - Occupational [...] place to sleep or slept in a usp (including now)? No 10/19/2023 Housing Stability Vital [...] time in the past 12 m [facility], were you homeless or living in a usp (including now)? No 09/05/2024 Comments No Sex and Gender Information Value Date Recorded Sex Assigned at Female 08/27/2024 10:01 AM EQUIP TECH Legal Sex Female 4:20 PM CDT Gender [...] Encounters Date Type Department Care Team (Late [facility]) Description 02/14/2025 10:00 AM CDT Treatment [facility] [place] [address] Ellen Rowley MD [address] [place] [address] 03/11/2025 9:40 AM CDT Office Visit [facility] Group Family Medicine - [address] [address] Ellen Rowley MD [address] [place] [address] documented as of this encounter Goals Goal [...] documented as of this encounter Care Teams Quick Sketch Artist Relationship Specialty Start Date End Date Ellen Rowley MD [address] [place] [address] PCP - General FAMILY PRACTICE 01/28/22 documented as of this encounter
--- OUTSIDE RECORDS SUMMARY | 2025-02-10 10:16 | XMS_ITS | Encounter Summary ---
Author Organization [facility] Address [address] [place] [address] Care Team Providers Care Director Software Quality Assurance Name Role Phone Ez Saenz DO Unavailable [phone] Ashwini Evangelista RN Unavailable [phone] Cecil Beckett MD Primary Care Provider [phone] Ellen Rowley MD Primary Care Provider [phone] Ashwini Evangelista RN Unavailable [phone] Ashwini Evangelista RN Unavailable +[phone] Annabel Borden RN Unavailable [phone] Ashwini Evangelista RN Unavailable [phone] Encounter Details Date Type Department Care Team (Late st Contact Info) Description 05/18/[address] [facility] [place], [place] [id number] Lon Christian MD 3 [facility] [address] [place] [address] [id number] Social History Tobacco Use Types Packs/Day Years [...] Sex Assigned at Female 08/27/2024 10:01 AM PLANER SETUP OPERATOR Legal Sex Female 4:20 PM CDT Gender [...] [facility] [place] [address] Ellen Rowley MD [address] [place], [place] [id number] 03/11/2025 9:40 AM CDT Office Visit [facility] Medical [facility] Family Medicine - [place] [address] [place] [address] Ellen Rowley MD [address] [place], [place] [phone] documented as of this encounter Results * PRE-SURGICAL/PRE-PROCEDURE CORONAVIRUS (COVID 19) (05/18/2020 11:58 AM CDT) Pathologist [facility] CORONAVIRUS SARS COV 2 PCR (RESP) NOT DETECTED NOT DETECTED 05/19/2020 6:21 PM CDT [employer] [facility] Comment: A Not Detected (negative) test result [...] providers and patients using the following websites: https://www.[employer]Bee[employer].com/home/Covid-19/HCP/NAAT/fact-sheet2 https://www.[employer]/home/Covid-19/Patients/NAAT/ fact-sheet2 This test has been authorized by the FDA under an Emergency Use Authorization (EUA) for use by authorized laboratories. Due to the current public health emergency, [facility] is receiving a high volume of samples [...] about COVID-19 can be found at the [facility] website: www.[employer]/Covid19. Test performed at [facility] [place] [id number] [place] [id number] Director: RIDGE HARRIS DO,MPH FIRST TEST YES 05/18/2020 2:27 PM CDT [facility] EMPLOYED IN HEALTHCARE NO 05/18/2020 2:27 PM CDT [facility] SYMPTOMATIC DEFINED BY CDC NO 05/18/2020 2:27 PM CDT [facility] DATE OF SYMPTOM ONSET NO 05/18/2020 2:47 PM CDT [facility] HOSPITALIZATION STATUS NO 05/18/2020 2:27 PM CDT [facility] PATIENT IN ICU NO 05/18/2020 2:27 PM CDT [facility] RESIDENT OF [facility] UNKNOWN 05/18/2020 2:27 PM CDT [facility] UNKNOWN 05/18/2020 2:47 PM CDT [facility] PATIENT'S RACE WHITE OR 05/18/2020 2:27 PM CDT [facility] ETHNICITY NONHISPANIC 05/18/2020 2:27 PM CDT [facility] SOURCE (QST) NASOPHARYNGEAL SWAB 05/18/2020 2:27 PM CDT [facility] NASOPHARYNGEAL SWAB / Unknown 05/18/2020 11:58 AM CDT us Lon Christian MD MICROBIOLOGY - GENERAL ORDERABLE S Final Result Performing Organization Address City/State/[facility] Co de Phone Number [facility] [address] [place] [address], [employer] [facility] [id number] [place] [address], documented in this encounter Visit Diagnoses Diagnosis [...] Rule Out 08/22/2023 08/22/2023 08/22/2023 9:05 AM PLANER SETUP OPERATOR Tuberculosis Rule-Out 08/22/2023 08/22/20232023 3:50 PM PLANER SETUP OPERATOR COVID-19 Rule Out 10/19/2023 10/19/2023 10/19/2023 10:09 AM CDT COVID-19 Rule Out 10/19/2023 10/19/2023 10/19/2023 2:22 PM CDT COVID-19 Rule Out 10/20/2023 10/20/2023 10/20/2023 5:06 PM CDT Rhinovirus 10/20/2023 10/20/2023 10/30/2023 12:3 2 AM CDT COVID-19 Rule Out 11/17/2023 11/17/2023 11/17/2023 1:22 PM CDT documented as of this encounter Care Teams Director Software Quality Assurance Relationship Specialty Start Date End Date Ez Saenz DO PCP - Med Group - [facility] Attributed Provider 09/28/18 07/31/20 Cecil Beckett MD [address] [facility] [address] [place], [place] [id number] PCP - General FAMILY PRACTICE 09/06/19 01/27/22 Ellen Rowley MD [address] [place] [address] PCP - General FAMILY PRACTICE 01/28/22 Ashwini Evangelista, RN [address] [facility] [address] [place] [address] Showroom Manager (Ambulatory) REGISTERED NURSE 08/09/19 Ashwini Evangelista, RN [address] [facility] [address] [place] [address] Registered Nurse CARE MANAGEMENT 08/22/23 09/20/23 Ashwini Evangelista RN [address] [facility] [address] [place] [address] Registered Nurse CARE MANAGEMENT 10/23/23 11/05/23 Annabel Borden, RN [address] [place] [address] Showroom Manager (Ambulatory) REGISTERED NURSE 04/05/24 Ashwini Evangelista, RN [address] [place] [address] Registered Nurse CARE MANAGEMENT 09/05/24 12/17/24 documented as of this encounter
--- OUTSIDE RECORDS SUMMARY | 2025-02-10 10:16 | XMS_ITS | Encounter Summary ---
Author Organization [facility] Address [address] [place] [address] Care Team Providers Care Failure Analysis Technician Name Role Phone Cecil Beckett MD Primary Care Provider [phone] Ellen Rowley MD Primary Care Provider [phone] Ashwini Evangelista RN Unavailable +[phone] Ashwini Evangelista RN Unavailable +[phone] Annabel Borden RN Unavailable [phone] Ashwini Evangelista RN Unavailable [phone] Encounter Details Date Type Department Care Team (Late st Contact Info) Description 12/31/2021 Therapy Plan [facility] Medical [facility] Diabetes and Endocrinology - [address] [address] [place] [address] [address] Social History Tobacco Use Types Packs/Day Years [...] Sex Assigned at Female 08/27/2024 10:01 AM SOLDERER DIPPER Legal Sex Female 4:20 PM CDT Gender [...] PM CDT Dolores Hilario RN Active * [place] Suicide Severity Rating Scale (Screener/Recent Self-Report) Question [...] Info) Description 02/14/2025 10:00 AM CDT Treatment [facility] [place] [address] Ellen Rowley MD [facility] [place] [address] 03/11/2025 9:40 AM CDT Office Visit [facility] Medical Group Family Medicine - [place] [address] [place] [address] Ellen Rowley MD [facility] [place] [address] documented as of this encounter Visit Diagnoses Not on filedocumented in this encounter Additional Health Concerns Infection Onset Date Last Indicated Resolved Time COVID-19 Rule Out 08/22/2023 08/22/2023 08/22/2023 9:05 AM SOLDERER DIPPER Tuberculosis Rule-Out 08/22/2023 08/22/20232023 3:50 PM SOLDERER DIPPER COVID-19 Rule Out 10/19/2023 10/19/2023 10/19/2023 10:09 AM CDT COVID-19 Rule Out 10/19/2023 10/19/2023 10/19/2023 2:22 PM CDT COVID-19 Rule Out 10/20/2023 10/20/2023 10/20/2023 5:06 PM CDT Rhinovirus 10/20/2023 10/20/2023 10/30/2023 12:3 2 AM CDT COVID-19 Rule Out 11/17/2023 11/17/2023 11/17/2023 1:22 PM CDT Assessment Noted Time PHQ-9 Depression Total Score: 0 10/02/19 10:12 AM SOLDERER DIPPER documented as of this encounter Care Teams Failure Analysis Technician Relationship Specialty Start Date End Date Cecil Beckett MD PCP - General FAMILY PRACTICE 09/06/19 01/27/22 Ellen Rwoley MD [address] [place] [address] PCP - General FAMILY PRACTICE 01/28/22 Ashwini Evangelista RN [address] [facility] [address] [place] [address] Registered Nurse CARE MANAGEMENT 08/22/23 09/20/23 Ashwini Evangelista RN [address] [facility] [address] [place] [address] Registered Nurse CARE MANAGEMENT 10/23/23 11/05/23 Annabel Borden RN [address] [place] [address] Operating Manager (Ambulatory) REGISTERED NURSE 04/05/24 Ashwini Evangelista, RN [address] [facility] [address] [place] [address] Registered Nurse CARE MANAGEMENT 09/05/24 12/17/24 documented as of this encounter
--- OUTSIDE RECORDS SUMMARY | 2025-02-10 10:16 | XMS_ITS | Encounter Summary ---
Author Organization [facility] Address [address] [place] [address] Care Team Providers Care Material Mixer Name Role Phone Ashwini Evangelista RN Unavailable [phone] Cecil Beckett MD Primary Care Provider [phone] Ellen Rowley MD Primary Care Provider [phone] Ashwini Evangelista RN Unavailable +[phone] Ashwini Evangelista RN Unavailable +[phone] Annabel Borden RN Unavailable [phone] Ashwini Evangelista RN Unavailable [phone] Encounter Details Date Type Department Care Team (Late st Contact Info) Description 11/13/2020 Prep for Procedure [facility] [place] [address] Cecil Beckett MD [address] [address] Social History Tobacco Use Types [...] Sex Assigned at Female 08/27/2024 10:01 AM LAUNCHMAN Legal Sex Female 4:20 PM CDT Gender [...] Info) Description 02/14/2025 10:00 AM CDT Treatment [facility] [place] [address] Ellen Rowley MD [address] [place] [address] 03/11/2025 9:40 AM CDT Office Visit [facility] Medical Group Family Medicine - [place] [address] [place] [address] Ellen Rowley MD [address] [place] [address] documented as of this encounter Visit Diagnoses Diagnosis Preoperative testing- Primary Preoperative examination, unspecified documented in this encounter Additional Health Concerns Infection Onset Date Last Indicated Resolved Time COVID-19 Confirmed 11/11/2020 11/11/2020 12:34 AM CDT COVID-19 Rule Out 08/22/2023 08/22/2023 08/22/2023 9:05 AM LAUNCHMAN Tuberculosis Rule-Out 08/22/2023 08/22/20232023 3:50 PM LAUNCHMAN COVID-19 Rule Out 10/19/2023 10/19/2023 10/19/2023 10:09 AM CDT COVID-19 Rule Out 10/19/2023 10/19/2023 10/19/2023 2:22 PM CDT COVID-19 Rule Out 10/20/2023 10/20/2023 10/20/2023 5:06 PM CDT Rhinovirus 10/20/2023 10/20/2023 10/30/2023 12:3 2 AM CDT COVID-19 Rule Out 11/17/2023 11/17/2023 11/17/2023 1:22 PM CDT documented as of this encounter Care Teams Material Mixer Relationship Specialty Start Date End Date Cecil Beckett MD [address] [facility] [address] [place] [address] PCP - General FAMILY PRACTICE 09/06/19 01/27/22 Ellen Rowley MD [address] [place] [address] PCP - General FAMILY PRACTICE 01/28/22 Ashwini Evangelista, RN [address] [facility] [place] [address] [place] [address] Well Surveying Engineer (Ambulatory) REGISTERED NURSE 08/09/19 Ashwini Evangelista, RN [address] [facility] [address] [place] [address] Registered Nurse CARE MANAGEMENT 08/22/23 09/20/23 Ashwini Evangelista RN [address] [facility] [address] [place] [address] Registered Nurse CARE MANAGEMENT 10/23/23 11/05/23 Annabel Borden, RN [address] [place] [address] Well Surveying Engineer (Ambulatory) REGISTERED NURSE 04/05/24 Ashwini Evangelista, RN [address] [facility] [place] [address] [place] [address] Registered Nurse CARE MANAGEMENT 09/05/24 12/17/24 documented as of this encounter
--- OUTSIDE RECORDS SUMMARY | 2025-02-10 10:16 | XMS_ITS | Encounter Summary ---
Author Organization [facility] Address [address] [place] [address] Care Team Providers Care Computer Technology Instructor Name Role Phone Ellen Rowley MD Primary Care Provider [phone] Encounter Details Date Type Department Care Team (Latest Contact Info) Description 02/04/2025 Scan [facility] Scanned, [...] materials from doctor or pharmacy Never 11/30/2023 [facility] Utilities Answer Date Recorded In the past 12 months has [employer], gas, oil, or water [employer] threatened to shut off services in your [...] often do you attend chur ch or jainism services? Never 10/19/2023 Do you belong to any clubs o r organizations such as sabianism groups, unions, fraternal or athletic groups, or [...] Recorded Patient Health Questionnaire-2 Score 0 12/09/2024 [facility] of Occupat ional Health - Occupational Stress [...] place to sleep or slept in a long term (including now)? No 10/19/2023 Housing Stability Vital Sign Answer Filippo e Recorded In the last 12 months, was t here a time when you were not able to pay the mortgage or rent on time? No 09/05/2024 In the past 12 months, how m any times have you moved where you were living? 1 09/05/2024 At any time in the past 12 m [facility], were you homeless or living in a long term (including now)? No 09/05/2024 Comments No Sex and Gender Information Value Date Recorded Sex Assigned at Female 08/27/2024 10:01 AM DOOR TO DOOR LEAD GENERATION Legal Sex Female 4:20 PM CDT Gender [...] Info) Description 02/14/2025 10:00 AM CDT Treatment [facility] Infusion Services at [facility] [place] [address] Ellen Rowley MD [address] [place] [address] 03/11/2025 9:40 AM CDT Office Visit [facility] Family Medicine - [place] [address] [place] [address] Ellen Rowley MD [address] [place] [phone] documented as of this encounter Goals Goal [...] documented as of this encounter Care Teams Computer Technology Instructor Relationship Specialty Start Date End Date Ellen Rowley MD [address] [place] [id number] PCP - General FAMILY PRACTICE 01/28/22 documented as of this encounter
--- OUTSIDE RECORDS SUMMARY | 2025-02-10 10:17 | XMS_ITS | Referral Summary ---
Author Organization [facility] Address [address] [place] [address] Care Team Providers Care Radiology Director Name Role Phone Ellen Rowley MD Primary Care Provider Encounters Date Type Department Care Team Description 02/06/2025 Telephone [facility] Pulmonology [address] [place] [phone] Onesimo Welch MD 02/06/2025 3:00 PM CDT Office Visit [facility] Infectious Disease [address] [place] [phone] Onesimo Welch MD Mycobacterium avium infection (HCC) (Primary Dx) 01/30/2025 Orders Only [facility] Cardiology [address] [place] [address] [phone] Sam Young MD Sinus node dysfunction (HCC) (Primary Dx); Tachy-lidia syndrome (HCC); Complete heart block (HCC); Pacemaker 01/30/2025 10:30 AM CDT Ancillary Procedure [facility] Cardiology [address] [place] [address] [phone] Tachy-lidia syndrome (HCC); Syncope, unspecified syncope type; Pacemaker; Atrial fibrillation, unspecified type (HCC) 01/30/2025 10:30 AM CDT Office Visit [facility] Cardiology [address] [place] [address] [phone] Sam Young MD Nonrheumatic mitral valve regurgitation (Primary Dx) 01/29/2025 10:45 AM CDT Office Visit [facility] Pulmonology [address] [facility] [address] [place] [address] Javier Pham MD 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 [address], [place] [address] Na Mcdaniel MA 11/30/2024 Orders Only [facility] Hospitalists [address] [place] [phone] Emy Cardona MD 11/29/2024 Orders Only [facility] Hospitalists [address] [place] [phone] Kaleigh Mercedes PA 11/29/2024 NH/SNF Visit [address] [phone] Kaleigh Mercedes PA Complete heart block (HCC) (Primary Dx); Achalasia of cardia; Essential hypertension; Atrial fibrillation, unspecified type (HCC); Postoperative hypothyroidism; Hyponatremia; Stage 2 chronic kidney disease; Anemia, unspecified type; Pressure injury of sacral region, unstageable (HCC) 11/28/2024 NH/SNF Visit [facility] Post Acute Care [address] [phone] Emy Cardona MD Atrial fibrillation, unspecified type (HCC) (Primary Dx); Essential hypertension; Pacemaker; Achalasia of cardia 11/27/2024 9:30 AM CDT Office Visit [facility] Cardiology [address] [phone] Tabitha Washburn NP Complete heart block (HCC) (Primary Dx); Atrial fibrillation, unspecified type (HCC); Nonrheumatic mitral valve regurgitation; Essential hypertension; Dyslipidemia, goal LDL below 100; Sinus node dysfunction (HCC) 11/26/2024 NH/SNF Visit [facility] Post Acute Care [address] [phone] Emy Cardona MD Essential hypertension (Primary Dx); Pacemaker; Postoperative hypothyroidism; Achalasia of cardia; Atrial fibrillation, unspecified type (HCC) 11/26/2024 12:56 AM CDT - 11/26/2024 3:26 AM CDT Emergency [facility] [address] [place] [phone] Toshia Tubbs MD Encounter for care related to feeding tube (Primary Dx); Gastrostomy tube skin breakdown (HCC) Discharge Disposition: Discharge to home or self care 11/25/2024 Orders Only [facility] Hospitalists [address] [place] [phone] Kaleigh Mercedes PA 11/25/2024 NH/SNF Visit [facility] Post [address] [phone] Kaleigh Mercedes PA Atrial fibrillation, unspecified type (HCC) (Primary Dx); Anemia, unspecified type; Stage 2 chronic kidney disease 11/24/2024 NH/SNF Visit [facility] Post Acute Care [address] [phone] Emy Cardona MD Atrial fibrillation, unspecified type (HCC) (Primary Dx); Postoperative hypothyroidism; Dysphagia, unspecified type 11/20/2024 NH/SNF Visit [facility] Post Acute Care [address] [phone] Kaleigh Mercedes PA Atrial fibrillation, unspecified type (HCC) (Primary Dx); Achalasia of cardia; Essential hypertension 11/18/2024 NH/SNF Visit [facility] Post Acute Care [address] [phone] Kaleigh Mercedes PA Essential hypertension (Primary Dx); Hyponatremia; Anemia, unspecified type 11/18/2024 Orders Only [facility] Hospitalists [address] [place] [phone] Kaleigh Mercedes PA 11/15/2024 NH/SNF Visit [facility] Post Acute Care [address] [phone] Kaleigh Mercedes PA Pressure injury of sacral region, unstageable (HCC) (Primary Dx); Slow transit constipation; Complete heart block (HCC); Essential hypertension 11/14/2024 Documentation [facility] Cardiology [address] [phone] Feliciano Peguero MD Pacemaker Check 11/13/2024 Orders Only [facility] Hospitalists [address] [place] [phone] Emy Cardona MD 11/13/2024 NH/SNF Visit [facility] Post [facility] Care [address] [phone] Kaleigh Mercedes PA Complete heart block (HCC) (Primary Dx); Hyponatremia; Anemia, unspecified type; Slow transit constipation 11/11/2024 Results Follow-Up [facility] Post Acute Care [address] [phone] Emy Cardona MD CBC with auto differential, Differential, auto, Comprehensive metabolic panel, eGFR 11/11/2024 NH/SNF Visit [facility] Post [facility] Care [address] [phone] Emy Cardona MD Generalized weakness (Primary Dx); Atrial [...] glaucoma of right eye 11/11/2024 Orders Only [facility] Hospitalists [address] [place] [phone] Emy Cardona MD from Last 3 Months Allergies Active Allergy Reactions Criticality Noted Date Comments Cefadroxil Headache Low 04/11/2019 Lactose Unknown Low 08/25/2023 Medications latanoprost (XALATAN) 0.005 % ophthalmic solutionIndication s:open angle glaucoma Administer 0.005 % into both eyes nightly Active timolol (TIMOPTIC) 0.5 % ophthalmic solution Administer 1 drop into both eyes every morning 09/05/19 21 Active nitroglycerin (NITROSTAT) 0.4 mg SL tablet [...] hours or as directed by MD. Active ferrous sulfate 325 mg (65 mg of elemental iron) tabletIndications: Iron Deficiency Anemia Take 1 tablet (325 mg total) by mouth daily with breakfast Active metoprolol (LOPRESSOR) 25 mg immediate release tablet Take 1 tablet (25 mg total) by mouth 2 (two) times a day 60 tablet 11/10/19 25 Active Additional Information Patient taking differently:25 mg oralDaily, Reported on 02/06/2025 miconazole 2 % powder Apply topically 2 (two) times a day 70 g 11/10/19 25 Active Additional Information Patient not taking.Reported on 02/06/2025 apixaban (ELIQUIS) 5 mg tabletIndications: Atrial fibrillation, unspecified type (HCC) Take 1 tablet (5 mg total) by mouth 2 (two) times a day 60 tablet 11/30/19 25 Active atorvastatin (LIPITOR) 10 mg tabletIndications: Complete heart block (HCC) Take 1 tablet (10 mg total) by mouth nightly 30 tablet 11/30/19 25 Active Additional Information Patient not taking.Reported on 02/06/2025 mupirocin (BACTROBAN) 2 % ointmentIndication s:Achalasia of cardia Apply topically 3 (three) times a day Apply around j tube 22 g 11/30/19 25 Active Additional Information Patient not taking.Reported on 02/06/2025 ondansetron ODT (ZOFRAN-ODT) 4 mg disintegrating tabletIndications: Achalasia of cardia Take 1 tablet (4 mg total) by mouth every 8 (eight) hours as needed for nausea or vomiting 20 tablet 11/30/19 25 Active furosemide (LASIX) 40 mg tablet Take 1 tablet (40 mg total) by mouth daily 12/20/19 25 Active levothyroxine (SYNTHROID) 150 mcg tablet Take 1 tablet (150 mcg total) by mouth daily 12/13/19 25 Active levothyroxine (SYNTHROID) 137 mcg tablet Take 1 tablet (137 mcg total) by mouth speech therapist early intervention before breakfast 30 tablet 1 10/19/19 25 025 Discontinu ed(Patient Reported) polyethylene glycol (MIRALAX) 17 gram packet Take 1 packet (17 g total) by mouth daily 01/18/20 25 025 Active Problems Problem Noted Date Diagnosed Date [...] very moment. The critical access team from [facility] was also attending to the patient. She [...] 11:01 AM CDT): I endorse admission to care home care. The patient is at risk of [...] care. Assessment & Plan (10/01/2024 9:52 AM WRAPPER REWINDER): I endorse admission to care home care. The patient is at risk of [...] off. Assessment & Plan (10/01/2024 10:08 AM WRAPPER REWINDER): I have viewed the injury of concern. [...] a.m. Assessment & Plan (10/01/2024 2:24 PM WRAPPER REWINDER): Hemoglobin lower but overall stable, H&H 8.2/26.0. [...] appointment with thoracic surgery and GI at [facility]. He will retrieve the dates and times and bring those to our medical team. Assessment & Plan (10/03/2024 12:17 PM WRAPPER REWINDER): Continue Jevity 1.5 tube feeding 60 mL/hour through the jejunostomy tube. Discussed with and dietitian. They are considering bolus feedings prior to discharging home. Assessment & Plan (10/01/2024 10:00 AM WRAPPER REWINDER): Because of her esophageal achalasia and stenosis [...] daily. Assessment & Plan (10/03/2024 12:17 PM WRAPPER REWINDER): Continue Synthroid 112 mcg daily. Assessment & Plan (10/01/2024 9:59 AM WRAPPER REWINDER): This is a chronic problem. We will continue levothyroxine 112 mcg daily. 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 Continue the scripting of latanoprost 1 drop in both eyes once daily at bedtime and timolol 1 drop in both eyes daily. Assessment & Plan (10/03/2024 12:19 PM WRAPPER REWINDER): We will continue latanoprost and timolol as scripted Assessment & Plan (10/01/2024 10:01 AM WRAPPER REWINDER): We will continue scripting of latanoprost 0.005%, [...] follow. Assessment & Plan (10/01/2024 9:59 AM WRAPPER REWINDER): Dietary will evaluate and advise. Hemorrhoids with complication 05/12/2021 History of total left knee replacement (TKR) Left-sided abdominal pain of unknown etiology Obesity, Class I, BMI 30-34.9 05/12/2021 Recurrent urinary tract infection 05/12/2021 Abnormal barium swallow 11/20/2020 Overview (05/12/2021): Added automatically from request for surgery [id number] Achalasia of cardia 11/20/2020 Overview (05/12/2021): Added automatically from request for surgery [id number] Assessment & Plan (11/29/2024 2:05 PM CDT): [...] She will have esophageal motility studies at [facility] tomorrow. She will continue jejunostomy tube feedings as followed by dietary. Assessment & Plan (11/26/2024 4:29 PM CDT): She has an appointment at [facility] on Monday of this week for manometry [...] office Assessment & Plan (10/03/2024 12:18 PM WRAPPER REWINDER): She now has a follow up appointment scheduled with the cuff cutter and thoracic surgeon. Assessment & Plan (10/01/2024 2:24 PM WRAPPER REWINDER): Status post J-tube placement. Tolerating continuous tube [...] Colace. Assessment & Plan (10/01/2024 10:02 AM WRAPPER REWINDER): She currently is unable eat. She is [...] (05/12/2021): Added automatically from request for surgery [id number] Graves disease 05/25/2020 Dysphagia 04/17/2020 Overview (05/12/2021): Added automatically from request for surgery [id number] Assessment & Plan (11/24/2024 2:39 PM CDT): [...] intervention. Assessment & Plan (10/01/2024 10:00 AM WRAPPER REWINDER): Follow up labs are ordered. Essential hypertension [...] dizziness/lightheadedness). Assessment & Plan (10/02/2024 8:45 AM WRAPPER REWINDER): BP remains lower, but pt is asymptomatic. Encouraged continue clear liquid intake, monitor for orthostasis Assessment & Plan (10/01/2024 9:59 AM WRAPPER REWINDER): We will monitor serial vital signs for trending. Our goal will be us the systolic blood pressures of 150 and a diastolic blood pressure below 90. Resolved Problems Problem Noted Date Diagnosed Date Resolved Date Pressure injury 11/14/2024 11/14/2024 Anemia 10/22/2024 11/12/2024 Well child examination 05/12/202110/01 Immunizations Immunization Administration Dates Next Due Pneumococcal Polysaccharide PPV23 04/01/2020 Social History Tobacco Use Types Packs/Day Years Used Date Smoking Tobacco: Never Passive Smoke Exposure: Never Smokeless Tobacco: Never Tobacco Cessation:Counseling Given: Not Answered Alcohol Use Standard Drinks/Week Comments Not Currently 0 (1 standard drink = 0.6 oz pur e alcohol) [facility] Utilities Answer Date Recorded In the past 12 months has e [employer], gas, oil, or water company threatened to [...] often do you attend chur ch or shinto services? Never 10/31/2024 Do you belong to any clubs o r organizations such as hinduism groups, unions, fraternal or athletic groups, or [...] any time in the past 12 m [facility], were you homeless or living in a senior living (including now)? No 11/05/2024 Personal Safety Answer Date Recorded Have you ever been in or are you currently in a harmful physical or emotional relationship or is someone making you feel afraid or unsafe? Denies 11/26/2024 Comments Unknown Sex and Gender Information Value Date Recorded Sex Assigned at Not on file Legal Sex Female 5:32 PM WRAPPER REWINDER Gender Identity Not on file Sexual Orientation Not on file Last Filed Vital Signs Vital Sign Reading Time Taken Comments Blood Pressure 95/66 02/06/2025 3:05 PM CDT Pulse 118 02/06/2025 3:05 PM CDT Temperature 36.2 C (97.1 F) 02/06/2025 3:05 PM CDT Respiratory Rate 18 02/06/2025 3:05 PM CDT Oxygen Saturation 99% 02/06/2025 3:05 PM CDT Inhaled Oxygen Concentration - - Weight 58.5 kg (129 lb) 02/06/2025 3:05 PM CDT Height 162.6 cm (5' 4) 02/06/2025 3:05 PM CDT Body Mass Index 22.14 02/06/2025 3:05 PM CDT Plan of Treatment Not on file Medical Devices Implanted Type Area Telegraphic Typewriter Installer Device Identifier Shelf Expiration Date Model / Serial / Lot Knee Components Right: Knee [employer] Baron Active Fixation Steroid Eluting Is 1 Connector Latex Free Sterile Right Atrial Right Atrial Ingevity Plus 59cm 7842 - [id number] Implanted:Qty: 1 on 10/31/2024 by Feliciano Peguero MD at [facility] [employer] Baron [id number] / / [employer] Lead 7841 Endocardial Pacing Mr Is-1 Bipolar Connection 7841 - [id number] - [id number] Implanted:Qty: 1 on 10/31/2024 by Feliciano Peguero MD at [facility] [employer] Baron [id number] 09/09/2026 7841 / [id number] / [employer] Accolade Latitude Nxt Pacesafe Easyview 4.45x5.02cm 2 Chamber Is1 L311 - [id number] - [id number] Implanted:Qty: 1 on 10/31/2024 by Feliciano Peguero MD at [facility] [employer]. [id number] 06/12/2026 L311 / [id number] / Procedures Procedure Name Priority Date/Time Associated Diagnosis Comments EGFR STAT 11/30/2024 10:21 AM CDT BASIC METABOLIC PANEL STAT 11/30/2024 10:21 AM CDT EGFR Routine 11/29/2024 6:09 AM CDT BASIC METABOLIC PANEL Routine 11/29/2024 6:09 AM CDT CBC WITHOUT DIFFERENTIAL Routine 11/29/2024 6:09 AM CDT POCT LIPID PANEL Routine 11/27/2024 9:38 AM CDT Dyslipidemia, goal LDL below 100 ED FEEDING TUBE REPLACEMENT Routine 11/26/2024 2:25 AM CDT XR ABDOMEN GASTRO TUBE PLACEMENT CHECK ED Urgent/IP Urgent 11/26/2024 2:04 AM CDT XR ABDOMEN AP 1 VIEW ED 11/26/2024 2:04 AM CDT EGFR Routine 11/25/2024 6:55 AM CDT BASIC METABOLIC PANEL Routine 11/25/2024 6:55 AM CDT CBC WITHOUT DIFFERENTIAL Routine 11/25/2024 6:55 AM CDT EGFR Routine 11/18/2024 7:19 AM CDT BASIC METABOLIC PANEL Routine 11/18/2024 7:19 AM CDT CBC WITHOUT DIFFERENTIAL Routine 11/18/2024 7:19 AM CDT EGFR Routine 11/13/2024 7:25 AM CDT COMPREHENSIVE METABOLIC PANEL Routine 11/13/2024 7:25 AM CDT CBC WITHOUT DIFFERENTIAL Routine 11/13/2024 7:25 AM CDT EGFR Routine 11/11/2024 5:29 AM CDT COMPREHENSIVE METABOLIC PANEL Routine 11/11/2024 5:29 AM CDT DIFFERENTIAL AUTO Routine 11/11/2024 5:2 9 AM CDT CBC WITH AUTO DIFFERENTIAL Routine 11/11/2024 5:29 AM CDT HEMOGLOBIN A1C Routine 07/16/2019 7:34 AM WRAPPER REWINDER DEXA AXIAL SKELETON BONE DENSITY 1 OR MORE SITES Routine 06/08/2015 2:48 PM WRAPPER REWINDER from Last 3 Months or Most Recently Relevant to Health Maintenance Results * eGFR (11/30/2024 10:21 AM CDT) eGFR 74 >=60 mL/min/1. 73 m2 [facility]ISA ANDREW Comment: Interpretive Data Reference Interval Normal >/= 90 mL/min/1.73m2 Mildly decreased* 60 - 89 mL/min/1.73m2 Mildly to moderately decreased 45 - 59 mL/min/1.73m2 Moderately to severely decreased 30 - 44 mL/min/1.73m2 Severely decreased 15 - 29 mL/min/1.73m2 Kidney Failure < 15 mL/min/1.73m2 *Relative to young adult level Estimated glomerular filtration rate is determined by the 2020 CKD-EPI equation recommended by the National Kidney Foundation (A Unifying Approach to GFR Estimation: Recommendations of the NKF-ASK Task Force on Reassessing the Inclusion of Race in Diagnosing Kidney Disease, JASN 2020). The CKD-EPI equation should not be used for patients with unstable renal function and has not been validated in children and those over 70. Current interpretive data was last reviewed 2021. [facility], [address] [place] [address]., [address] Blood 11/30/2024 10:2 1 AM CDT 11/30/2024 10:29 AM CDT us Emy Cardona MD LAB BLOOD ORDERABLES Final R esult LISA [address] Department [place] [address] * (ABNORMAL) Basic metabolic panel (11/30/2024 10:21 AM CDT) Sodium 132(L) 135 - 145 mmol/L LISA ANDREW Comment:[address] [address] Potassium, pl 5.0(H) 3.3 - 4.9 mmol/L LISA ANDREW Comment:[address] [address] Chloride 95(L) 97 - 110 mmol/L LISA Comment:[address] [place]., [address] CO2 27 22 - 32 mmol/L LISA Comment:[address] [address] Anion gap 10 2 - 15 mmol/L LISA Comment:[address] [address] BUN 45(H) 6 - 25 mg/dL LISA Comment:[address] [address] Creatinine 0.82 0.60 - 1.10 mg/dL LISA Comment:[address] [address] Glucose 123 70 - 199 mg/dL LISA Comment: Interpretive Data Fasting glucose >/= 126 mg/dl is diagnostic for diabetes. Fasting is defined as no caloric intake for at least 8 hours. Fasting glucose between 100 mg/dl to 125 mg/dl is diagnostic of prediabetes. In a patient with classic symptoms of hyperglycemia or hyperglycemic crisis, a random glucose >/= 200 mg/dl is diagnostic for diabetes. In the absence of unequivocal hyperglycemia, results should be confirmed by repeat testing. The classification and Diagnosis of Diabetes Diabetes Care 202; 46: S19-S40. Current interpretive data was last revised 2022. [facility], [address] [place] [address]., [address] Calcium 9.5 8.5 - 10.3 mg/dL LISA Comment:[address] [address] Blood 11/30/2024 10:2 1 AM CDT 11/30/2024 10:29 AM CDT us Emy Cardona MD LAB BLOOD ORDERABLES Final R esult [facility]ISA [address] Department [place] [address] * eGFR (11/29/2024 6:09 AM CDT) eGFR 68 >=60 mL/min/1. 73 m2 LISA Comment: Interpretive Data Reference Interval Normal >/= 90 mL/min/1.73m2 Mildly decreased* 60 - 89 mL/min/1.73m2 Mildly to moderately decreased 45 - 59 mL/min/1.73m2 Moderately to severely decreased 30 - 44 mL/min/1.73m2 Severely decreased 15 - 29 mL/min/1.73m2 Kidney Failure < 15 mL/min/1.73m2 *Relative to young adult level Estimated glomerular filtration rate is determined by the 2020 CKD-EPI equation recommended by the National Kidney Foundation (A Unifying Approach to GFR Estimation: Recommendations of the NKF-ASK Task Force on Reassessing the Inclusion of Race in Diagnosing Kidney Disease, JASN 2020). The CKD-EPI equation should not be used for patients with unstable renal function and has not been validated in children and those over 70. Current interpretive data was last reviewed 2021. [address] [address] Blood 11/29/2024 6:09 AM CDT 11/29/2024 6:46 AM CDT Kaleigh MEDRANO LAB BLOOD ORDERABLES Final Resu lt LISA [address] Department [place] [address] * (ABNORMAL) CBC without differential (11/29/2024 6:09 AM CDT) WBC 4.55 3.80 - 9.90 K/cumm LISA ANDREW Comment:[address] [address] Hgb 7.8(L) 11.9 - 15.5 g/dL LISA ANDREW Comment:[address] [address] Hct 24.5(L) 35.6 - 45.5 % LISA ANDREW Comment:[address] [address] Plt 250 150 - 400 K/cumm LISA ANDREW Comment:[address] [address] MPV 10.6 9.1 - 12.3 fL LISA ANDREW Comment:[address] [address] RBC 2.44(L) 3.90 - 5.20 M/cumm LISA Comment:[address] [address] MCV 100.4(H) 81.3 - 96.4 fL LISA Comment:[address] [address] MCH 32.0 27.1 - 33.3 pg LISA ANDREW Comment:[address] [address] MCHC 31.8(L) 32.3 - 35.7 g/dL LISA Comment:[address] [address] RDW CV 15.6(H) 11.1 - 14.9 % LISA Comment:[address] [address] RDW SD 57.5(H) 35.7 - 48.1 fL LISA Comment:[address], [address] NRBC abs 0.00 0.00 - 0.01 K/cumm LISA Comment:[address] [address] Blood 11/29/2024 6:09 AM CDT 11/29/2024 6:45 AM CDT us Kaleigh MEDRANO LAB BLOOD ORDERABLES Final Resu lt LISA [address] [facility] Department [place] [address] * (ABNORMAL) Basic metabolic panel (11/29/2024 6:09 AM CDT) Sodium 132(L) 135 - 145 mmol/L LISA Comment:[address] [address] Potassium, pl 4.6 3.3 - 4.9 mmol/L LISA Comment:[address] [address] Chloride 96(L) 97 - 110 mmol/L LISA Comment:[address], [address] CO2 31 22 - 32 mmol/L LISA Comment:[address] [address] Anion gap 5 2 - 15 mmol/L LISA Comment:[address] [address] BUN 48(H) 6 - 25 mg/dL LISA Comment:[address] [address] Creatinine 0.88 0.60 - 1.10 mg/dL LISA Comment:[address] [address] Glucose 90 70 - 199 mg/dL LISA Comment: Interpretive Data Fasting glucose >/= 126 mg/dl is diagnostic for diabetes. Fasting is defined as no caloric intake for at least 8 hours. Fasting glucose between 100 mg/dl to 125 mg/dl is diagnostic of prediabetes. In a patient with classic symptoms of hyperglycemia or hyperglycemic crisis, a random glucose >/= 200 mg/dl is diagnostic for diabetes. In the absence of unequivocal hyperglycemia, results should be confirmed by repeat testing. The classification and Diagnosis of Diabetes Diabetes Care 2021; 46: S19-S40. Current interpretive data was last revised 2022. [facility], [address] [place] [address]., [address] Calcium 8.9 8.5 - 10.3 mg/dL LISA Comment:[address] [address] Blood 11/29/2024 6:09 AM CDT 11/29/2024 6:46 AM CDT us Kaleigh MEDRANO LAB BLOOD ORDERABLES Final Resu lt LISA [address] Department [place] [address] * (ABNORMAL) POCT lipid panel (11/27/2024 9:38 AM CDT) Cholesterol, POC 122 <200 MG/DL HDL, POC 39(A) >=40 mg/dL Triglycerides, POC 83 <=149 mg/dL LDL Cholesterol POC 67 <=129 mg/dL Chol/HDL Ratio, POC 3.2 NONE Non-HDL Cholesterol, POC 84 NONE mg/dL Cholesterol Total, POC 122 30 - 199 mg/dL Capillary blood 11/27/2024 9 :38 AM CDT Tabitha Washburn NP POINT OF CARE TEST ORDERABLES F inal Result * Gtube/Jtube/Feeding Tube Replacement (11/26/2024 2:25 AM CDT) Narrative Toshia Tubbs MD - 11/26/2024 2:25 AM CDT Toshia Tubbs MD 11/26/2024 4:53 AM Gtube/Jtube/Feeding Tube Replacement Date/Time: 11/26/2024 2:25 AM Performed by: Toshia Tubbs MD Authorized by: Toshia Tubbs MD Old tube type: Gastrojejunostomy Old tube size: 14 Fr Sedation used: no Anesthesia method: None Tube type: Jejunostomy Tube size: 14 Fr Bulb inflation volume: 10 Bulb inflation fluid: Normal saline Placement/position confirmation: X-ray Placement difficulty: Minimal There is a single suture around the J-tube that has 4 cm up from the little plastic barrier piece, under which has some skin breakdown and purulence and she reports that has tender. I attempted to deflate the balloon. There actually was not any fluid in the balloon. I gently pulled back on the tube and the balloon came out of the skin. The little plastic piece was sutured in only 1 spot. This has left in place. Then I was able to scoot the tube through the small plastic bumper or piece that has used to hold the tube in place about 4 cm. Then the balloon was reinflated and x-ray was obtained. There some tenderness and skin breakdown under that little plastic piece. Possible secondary infection either with yeast or with bacteria or just moisture dermatitis. Doubt skin breakdown from compression. Only 1 suture is holding that is small plastic piece in place at this time. Toshia Tubbs MD IN CLINIC/BEDSIDE ORDERA BLES Final Result * XR Abdomen Gastro Tube Placement Check (11/26/2024 2:04 AM CDT) Anatomical Region Laterality Modality Body N/A Computed Radiogr aphy 11/26/2024 2:39 AM CDT Narrative 11/26/2024 2:40 AM CDT EXAM DESCRIPTION: XR ABDOMEN GASTRO TUBE PLACEMENT CHECK REASON FOR STUDY: g-tube placement verification J-tube placement verification; 60 mL Gastroview inserted; [place] [facility] [place] this am, balloon is out and staff want a confirmation of placement. Pt is not in dpain and is not having issues. No leaking noted when feeding using kangaroo pump. Upon assessment, skin around tube is reddish and tender. TECHNIQUE: Two supine radiographic views of the abdomen. COMPARISON: None. FINDINGS: BOWEL: The bowel-gas pattern appears unremarkable. There is contrast instilled through the patient's J-tube and filling multiple loops of small bowel in the left lower quadrant. No extravasation is seen. SOFT TISSUES: No significant calcifications. LINES/TUBES: A J tube projects over the left lower quadrant, unchanged. BONES: No acute osseous abnormality. IMPRESSION: J tube in appropriate position. THIS IS AN ELECTRONICALLY VERIFIED FINAL REPORT 11/26/2024 2:40 AM - Electronically signed by Julia Stein M.D. SN T: Report ID: [id number] Reading Location: [id number] Procedure Note Julia Stein MD - 11/26/2024 EXAM DESCRIPTION: XR ABDOMEN GASTRO TUBE PLACEMENT CHECK REASON FOR STUDY: g-tube placement verification J-tube placement verification; 60 mL Gastroview inserted; [place] [facility] [place] this am, balloon is out and staff want a confirmationof placement. Pt is not in dpain and is not having issues. No leaking notedwhen feeding using kangaroo pump. Upon assessment, skin around tube isreddish and tender. TECHNIQUE: Two supine radiographic views of the abdomen. COMPARISON: None. FINDINGS: BOWEL: The bowel-gas pattern appears unremarkable. There is contrast instilled through the patient's J-tube and filling multiple loopsof small bowel in the left lower quadrant. No extravasation is seen. SOFT TISSUES: No significant calcifications. LINES/TUBES: A J tube projects over the left lower quadrant, unchanged. BONES: No acute osseous abnormality. IMPRESSION: J tube in appropriate position. THIS IS AN ELECTRONICALLY VERIFIED FINAL REPORT 11/26/2024 2:40 AM - Electronically signed by Julia Stein M.D. SN T: Report ID: [id number] Reading Location: [id number] Toshia Tubbs MD IMG XR PROCEDURES Final Result * XR Abdomen Ap 1 Vw (11/26/2024 2:04 AM CDT) Anatomical Region Laterality Modality Body, Abdomen N/A Computed Radiogr aphy 11/26/2024 2:37 AM CDT Narrative 11/26/2024 2:39 AM CDT EXAM DESCRIPTION: XR ABDOMEN AP 1 VIEW REASON FOR STUDY: G tube placement confirmation J-tube placement verification; [place] [facility] [place] this am, balloon is out and staff want a confirmation of placement. Pt is not in pain and is not having issues. No leaking noted when feeding using kangaroo pump. Upon assessment, skin around tube is reddish and tender. TECHNIQUE: Single radiographic view of the abdomen. COMPARISON: Plain film of the abdomen of October 08, 2024. FINDINGS: BOWEL: There is a nonobstructive bowel gas pattern. SOFT TISSUES: No significant calcifications. LINES/TUBES: A J-tube projects over the left lower quadrant, not significantly changed from previous given patient positioning. BONES: No acute osseous abnormality. IMPRESSION: J-tube projecting over left lower quadrant. THIS IS AN ELECTRONICALLY VERIFIED FINAL REPORT 11/26/2024 2:39 AM - Electronically signed by Julia Stein M.D. SN T: Report ID: [id number] Reading Location: [id number] Procedure Note Julia Stein MD - 11/26/2024 EXAM DESCRIPTION: XR ABDOMEN AP 1 VIEW REASON FOR STUDY: G tube placement confirmation J-tube placement verification; [place] [facility] [place], balloon is out and staff want a confirmation of placement. Pt is not inpain and is not having issues. No leaking noted when feeding using kangaroopump. Upon assessment, skin around tube is reddish and tender. TECHNIQUE: Single radiographic view of the abdomen. COMPARISON: Plain film of the abdomen of October 08, 2024. FINDINGS: BOWEL: There is a nonobstructive bowel gas pattern. SOFT TISSUES: No significant calcifications. LINES/TUBES: A J-tube projects over the left lower quadrant, not significantly changed from previous given patient positioning. BONES: No acute osseous abnormality. IMPRESSION: J-tube projecting over left lower quadrant. THIS IS AN ELECTRONICALLY VERIFIED FINAL REPORT 11/26/2024 2:39 AM - Electronically signed by Julia Stein M.D. SN T: Report ID: [id number] Reading Location: [place] [id number] Toshia Tubbs MD IMG XR PROCEDURES Final Result * eGFR (11/25/2024 6:55 AM CDT) eGFR 64 >=60 mL/min/1. 73 m2 LISA ANDREW Comment: Interpretive Data Reference Interval Normal >/= 90 mL/min/1.73m2 Mildly decreased* 60 - 89 mL/min/1.73m2 Mildly to moderately decreased 45 - 59 mL/min/1.73m2 Moderately to severely decreased 30 - 44 mL/min/1.73m2 Severely decreased 15 - 29 mL/min/1.73m2 Kidney Failure < 15 mL/min/1.73m2 *Relative to young adult level Estimated glomerular filtration rate is determined by the 2020 CKD-EPI equation recommended by the National Kidney Foundation (A Unifying Approach to GFR Estimation: Recommendations of the NKF-ASK Task Force on Reassessing the Inclusion of Race in Diagnosing Kidney Disease, JASN 202). The CKD-EPI equation should not be used for patients with unstable renal function and has not been validated in children and those over 70. Current interpretive data was last reviewed 2021. [facility], [address] [place] [address], [place]., [address] Blood 11/25/2024 6:55 AM CDT 11/25/2024 7:48 AM CDT us Kaleigh MEDRANO LAB BLOOD ORDERABLES Final Resu lt LISA [address] [facility] Department [place] [address] * (ABNORMAL) CBC without differential (11/25/2024 6:55 AM CDT) WBC 7.82 3.80 - 9.90 K/cumm LISA Comment:[address], [address] Hgb 7.6(L) 11.9 - 15.5 g/dL LISA Comment:[address], [address] Hct 24.1(L) 35.6 - 45.5 % LISA Comment:[address], [address] Plt 232 150 - 400 K/cumm LISA Comment:[address], [address] MPV 11.1 9.1 - 12.3 fL CERDANIEL Comment:[address], [address] RBC 2.44(L) 3.90 - 5.20 M/cumm LISA MH Comment:[address] [address] MCV 98.8(H) 81.3 - 96.4 fL LISA Comment:[address], [address] MCH 31.1 27.1 - 33.3 pg CERDANIEL MH Comment:[address], [address] MCHC 31.5(L) 32.3 - 35.7 g/dL LISA Comment:[address], [address] RDW CV 16.1(H) 11.1 - 14.9 % LISA Comment:[address], [address] RDW SD 58.4(H) 35.7 - 48.1 fL CERDANIEL MH Comment:[address] [address] NRBC abs 0.00 0.00 - 0.01 K/cumm LISA Comment:[address] [address] Blood 11/25/2024 6:55 AM CDT 11/25/2024 7:48 AM CDT Kaleigh MEDRANO LAB BLOOD ORDERABLES Final Resu lt LISA [address] [facility] Department [place] [address] * (ABNORMAL) Basic metabolic panel (11/25/2024 6:55 AM CDT) Sodium 130(L) 135 - 145 mmol/L LISA Comment:[address] [address] Potassium, pl 3.9 3.3 - 4.9 mmol/L LISA Comment:[address] [address] Chloride 91(L) 97 - 110 mmol/L LISA Comment:[address] [address] CO2 30 22 - 32 mmol/L LISA Comment:[address] [address] Anion gap 9 2 - 15 mmol/L LISA Comment:[address] [address] BUN 49(H) 6 - 25 mg/dL LISA Comment:[address] [address] Creatinine 0.93 0.60 - 1.10 mg/dL LISA Comment:[address] [address] Glucose 104 70 - 199 mg/dL LISA Comment: Interpretive Data Fasting glucose >/= 126 mg/dl is diagnostic for diabetes. Fasting is defined as no caloric intake for at least 8 hours. Fasting glucose between 100 mg/dl to 125 mg/dl is diagnostic of prediabetes. In a patient with classic symptoms of hyperglycemia or hyperglycemic crisis, a random glucose >/= 200 mg/dl is diagnostic for diabetes. In the absence of unequivocal hyperglycemia, results should be confirmed by repeat testing. The classification and Diagnosis of Diabetes Diabetes Care 202; 46: S19-S40. Current interpretive data was last revised 2022. [facility], [facility] [place]., [address] Calcium 8.7 8.5 - 10.3 mg/dL LISA ANDREW Comment:[facility], [address] [place]., [address] Blood 11/25/2024 6:55 AM CDT 11/25/2024 7:48 AM CDT us Kaleigh MEDRANO LAB BLOOD ORDERABLES Final Resu lt LISA ANDREW [address] [place] [address] Department [place] [address] * eGFR (11/18/2024 7:19 AM CDT) eGFR 69 >=60 mL/min/1. 73 m2 LISA ANDREW Comment: Interpretive Data Reference Interval Normal >/= 90 mL/min/1.73m2 Mildly decreased* 60 - 89 mL/min/1.73m2 Mildly to moderately decreased 45 - 59 mL/min/1.73m2 Moderately to severely decreased 30 - 44 mL/min/1.73m2 Severely decreased 15 - 29 mL/min/1.73m2 Kidney Failure < 15 mL/min/1.73m2 *Relative to young adult level Estimated glomerular filtration rate is determined by the 2020 CKD-EPI equation recommended by the National Kidney Foundation (A Unifying Approach to GFR Estimation: Recommendations of the NKF-ASK Task Force on Reassessing the Inclusion of Race in Diagnosing Kidney Disease, JASN 202). The CKD-EPI equation should not be used for patients with unstable renal function and has not been validated in children and those over 70. Current interpretive data was last reviewed 2021. [facility], [address] [place] [address]., [address] Blood 11/18/2024 7:19 AM CDT 11/18/2024 7:51 AM CDT us Kaleigh MEDRANO LAB BLOOD ORDERABLES Final Resu lt LISA [address] [facility] Department [place] [address] * (ABNORMAL) CBC without differential (11/18/2024 7:19 AM CDT) WBC 5.26 3.80 - 9.90 K/cumm CERDANIEL Comment:[address] [address] Hgb 8.2(L) 11.9 - 15.5 g/dL CERDANIEL MH Comment:[address], [address] Hct 26.7(L) 35.6 - 45.5 % CERDANIEL MH Comment:[address] [address] Plt 225 150 - 400 K/cumm CERDANIEL MH Comment:[address] [address] MPV 10.6 9.1 - 12.3 fL CERNER MH Comment:[address], [address] RBC 2.63(L) 3.90 - 5.20 M/cumm CERNER MH Comment:[address], [address] MCV 101.5(H) 81.3 - 96.4 fL CERNER MH Comment:[address], [address] MCH 31.2 27.1 - 33.3 pg CERNER MH Comment:[address], [address] MCHC 30.7(L) 32.3 - 35.7 g/dL CERNER MH Comment:[address], [address] RDW CV 16.6(H) 11.1 - 14.9 % CERNER MH Comment:[address], [address] RDW SD 61.9(H) 35.7 - 48.1 fL CERNER MH Comment:[address] [address] NRBC abs 0.00 0.00 - 0.01 K/cumm LISA Comment:[address] [address] Blood 11/18/2024 7:19 AM CDT 11/18/2024 7:51 AM CDT Kaleigh MEDRANO LAB BLOOD ORDERABLES Final Resu lt LISA [address] [facility] Department [place] [address] * (ABNORMAL) Basic metabolic panel (11/18/2024 7:19 AM CDT) Sodium 134(L) 135 - 145 mmol/L LISA Comment:[address] [address] Potassium, pl 4.2 3.3 - 4.9 mmol/L LISA Comment:[address] [address] Chloride 94(L) 97 - 110 mmol/L LISA Comment:[address] [address] CO2 31 22 - 32 mmol/L LISA Comment:[address] [address] Anion gap 9 2 - 15 mmol/L LISA Comment:[address] [address] BUN 44(H) 6 - 25 mg/dL LISA Comment:[address] [address] Creatinine 0.87 0.60 - 1.10 mg/dL LISA Comment:[address] [address] Glucose 107 70 - 199 mg/dL LISA Comment: Interpretive Data Fasting glucose >/= 126 mg/dl is diagnostic for diabetes. Fasting is defined as no caloric intake for at least 8 hours. Fasting glucose between 100 mg/dl to 125 mg/dl is diagnostic of prediabetes. In a patient with classic symptoms of hyperglycemia or hyperglycemic crisis, a random glucose >/= 200 mg/dl is diagnostic for diabetes. In the absence of unequivocal hyperglycemia, results should be confirmed by repeat testing. The classification and Diagnosis of Diabetes Diabetes Care 202; 46: S19-S40. Current interpretive data was last revised 2022. [facility], [address] [place] [address]., [address] Calcium 9.0 8.5 - 10.3 mg/dL LISA ANDREW Comment:[facility], [address] [place]., [address] Blood 11/18/2024 7:19 AM CDT 11/18/2024 7:51 AM CDT us Kaleigh MEDRANO LAB BLOOD ORDERABLES Final Resu lt LISA ANDREW [address] [place] [address] Department [place] [address] * eGFR (11/13/2024 7:25 AM CDT) eGFR 72 >=60 mL/min/1. 73 m2 LISA ANDREW Comment: Interpretive Data Reference Interval Normal >/= 90 mL/min/1.73m2 Mildly decreased* 60 - 89 mL/min/1.73m2 Mildly to moderately decreased 45 - 59 mL/min/1.73m2 Moderately to severely decreased 30 - 44 mL/min/1.73m2 Severely decreased 15 - 29 mL/min/1.73m2 Kidney Failure < 15 mL/min/1.73m2 *Relative to young adult level Estimated glomerular filtration rate is determined by the 2020 CKD-EPI equation recommended by the National Kidney Foundation (A Unifying Approach to GFR Estimation: Recommendations of the NKF-ASK Task Force on Reassessing the Inclusion of Race in Diagnosing Kidney Disease, JASN 2020). The CKD-EPI equation should not be used for patients with unstable renal function and has not been validated in children and those over 70. Current interpretive data was last reviewed 2021. [facility], [address] [place] [address]., [address] Blood 11/13/2024 7:25 AM CDT 11/13/2024 8:20 AM CDT us Emy Cardona MD LAB BLOOD ORDERABLES Final R esult LISA [address] [facility] Department [place] [address] * (ABNORMAL) CBC without differential (11/13/2024 7:25 AM CDT) WBC 4.96 3.80 - 9.90 K/cumm LISA Comment:[address], [address] Hgb 8.1(L) 11.9 - 15.5 g/dL CERDANIEL Comment:[address], [address] Hct 26.1(L) 35.6 - 45.5 % CERDANIEL Comment:[address], [address] Plt 196 150 - 400 K/cumm LISA MH Comment:[address], [address] MPV 11.5 9.1 - 12.3 fL CERNER Comment:[address], [address] RBC 2.54(L) 3.90 - 5.20 M/cumm CERDANIEL MH Comment:[address], [address] MCV 102.8(H) 81.3 - 96.4 fL CERDANIEL Comment:[address], [address] MCH 31.9 27.1 - 33.3 pg CERNER MH Comment:[address], [address] MCHC 31.0(L) 32.3 - 35.7 g/dL CERNER MH Comment:[address], [address] RDW CV 16.1(H) 11.1 - 14.9 % CERNER MH Comment:[address], [address] RDW SD 59.5(H) 35.7 - 48.1 fL CERNER MH Comment:[address], [address] NRBC abs 0.00 0.00 - 0.01 K/cumm LISA Comment:[address] [address] Blood 11/13/2024 7:25 AM CDT 11/13/2024 8:20 AM CDT us Emy Cardona MD LAB BLOOD ORDERABLES Final R esult LISA [address] [facility] Department [place] [address] * (ABNORMAL) Comprehensive metabolic panel (11/13/2024 7:25 AM CDT) Sodium 132(L) 135 - 145 mmol/L LISA Comment:[address] [address] Potassium, pl 3.9 3.3 - 4.9 mmol/L LISA Comment:[address] [address] Chloride 94(L) 97 - 110 mmol/L LISA Comment:[address] [address] CO2 35(H) 22 - 32 mmol/L LISA Comment:[address] [address] Anion gap 3 2 - 15 mmol/L LISA Comment:[address] [address] BUN 49(H) 6 - 25 mg/dL LISA Comment:[address] [address] Creatinine 0.84 0.60 - 1.10 mg/dL LISA Comment:[address] [address] Glucose 122 70 - 199 mg/dL LISA Comment: Interpretive Data Fasting glucose >/= 126 mg/dl is diagnostic for diabetes. Fasting is defined as no caloric intake for at least 8 hours. Fasting glucose between 100 mg/dl to 125 mg/dl is diagnostic of prediabetes. In a patient with classic symptoms of hyperglycemia or hyperglycemic crisis, a random glucose >/= 200 mg/dl is diagnostic for diabetes. In the absence of unequivocal hyperglycemia, results should be confirmed by repeat testing. The classification and Diagnosis of Diabetes Diabetes Care 202; 46: S19-S40. Current interpretive data was last revised 2022. [facility], [address] [place]., [address] Calcium 8.9 8.5 - 10.3 mg/dL [facility] Comment:[address] [address] Bilirubin, total 0.3 0.1 - 1.2 mg/dL [facility] Comment:[address] [address] Protein, pl 6.7 6.5 - 8.5 g/dL [facility] Comment:[address] [address] Albumin 2.6(L) 3.5 - 5.0 g/dL [facility] Comment:[address] [address] Alk phos 300(H) 40 - 130 Units/L [facility] Comment:[address] [address] ALT 46(H) 7 - 45 Units/L [facility] Comment:[address] [address] AST 59(H) 10 - 45 Units/L [facility] Comment:[address] [address] Blood 11/13/2024 7:25 AM CDT 11/13/2024 8:20 AM CDT us Emy Cardona MD LAB BLOOD ORDERABLES Final R esult LISA [address] Department [place] [address] * eGFR (11/11/2024 5:29 AM CDT) eGFR 70 >=60 mL/min/1. 73 m2 LISA Comment: Interpretive Data Reference Interval Normal >/= 90 mL/min/1.73m2 Mildly decreased* 60 - 89 mL/min/1.73m2 Mildly to moderately decreased 45 - 59 mL/min/1.73m2 Moderately to severely decreased 30 - 44 mL/min/1.73m2 Severely decreased 15 - 29 mL/min/1.73m2 Kidney Failure < 15 mL/min/1.73m2 *Relative to young adult level Estimated glomerular filtration rate is determined by the 2020 CKD-EPI equation recommended by the National Kidney Foundation (A Unifying Approach to GFR Estimation: Recommendations of the NKF-ASK Task Force on Reassessing the Inclusion of Race in Diagnosing Kidney Disease, JASN 2020). The CKD-EPI equation should not be used for patients with unstable renal function and has not been validated in children and those over 70. Current interpretive data was last reviewed 2021. [facility], [address] [place] [address]., [address] Blood 11/11/2024 5:29 AM CDT 11/11/2024 6:20 AM CDT us Emy Cardona MD LAB BLOOD ORDERABLES Final R esult [address] Department [place] [address] * Differential, auto (11/11/2024 5:29 AM CDT) Neutrophil abs 5.35 1.50 - 6.50 K/cumm LISA Comment:[address] [address] Imm gran abs 0.04 0.00 - 0.10 K/cumm LISA Comment:[address] [address] Lymphocyte abs 1.46 0.80 - 3.30 K/cumm LISA Comment:[address] [address] Monocyte abs 0.76 0.20 - 0.80 K/cumm LISA Comment:[address] [address] Eosinophil abs 0.08 0.00 - 0.50 K/cumm LISA Comment:[address] [address] Basophil abs 0.03 0.00 - 0.10 K/cumm CERNER Comment:[facility], [address] [place]., [address] Neutrophil pct 69.4 % [facility] Comment: Interpretive Data Percent cell count reference ranges are not reported, since discordance with absolute values may lead to misinterpretation of CBC data. Current Interpretive Data was last revised on 2017. [facility], [address] [place] [address]., [address] Imm gran pct 0.5 % [facility] Comment: Interpretive Data Percent cell count reference ranges are not reported, since discordance with absolute values may lead to misinterpretation of CBC data. Current Interpretive Data was last revised on 2017. [address] [address] Lymphocyte pct 18.9 % [facility] Comment: Interpretive Data Percent cell count reference ranges are not reported, since discordance with absolute values may lead to misinterpretation of CBC data. Current Interpretive Data was last revised on 2017. [facility], [address] [place] [address]., [address] Monocyte pct 9.8 % [facility] Comment: Interpretive Data Percent cell count reference ranges are not reported, since discordance with absolute values may lead to misinterpretation of CBC data. Current Interpretive Data was last revised on 2017. [facility], [address] [place] [address]., [address] Eosinophil pct 1.0 % [facility] Comment: Interpretive Data Percent cell count reference ranges are not reported, since discordance with absolute values may lead to misinterpretation of CBC data. Current Interpretive Data was last revised on 2017. [facility], [address] [place] [address]., [address] Basophil pct 0.4 % [facility] Comment: Interpretive Data Percent cell count reference ranges are not reported, since discordance with absolute values may lead to misinterpretation of CBC data. Current Interpretive Data was last revised on 2017. [facility], [address] [place] [address]., [address] Blood 11/11/2024 5:29 AM CDT 11/11/2024 6:18 AM CDT us Emy Cardona MD LAB BLOOD ORDERABLES Final R esult [facility] [address] [facility] Department [place] [address] * (ABNORMAL) CBC with auto differential (11/11/2024 5:29 AM CDT) WBC 7.72 3.80 - 9.90 K/cumm LISA Comment:[address], [address] Hgb 7.8(L) 11.9 - 15.5 g/dL CERDANIEL Comment:[address], [address] Hct 25.7(L) 35.6 - 45.5 % CERDANIEL Comment:[address], [address] Plt 228 150 - 400 K/cumm CERDANIEL Comment:[address], [address] MPV 11.2 9.1 - 12.3 fL CERDANIEL Comment:[address], [address] RBC 2.47(L) 3.90 - 5.20 M/cumm CERDANIEL Comment:[address], [address] MCV 104.0(H) 81.3 - 96.4 fL CERDANIEL Comment:[address], [address] MCH 31.6 27.1 - 33.3 pg CERDANIEL Comment:[address], [address] MCHC 30.4(L) 32.3 - 35.7 g/dL CERNER Comment:[address], [address] RDW CV 16.4(H) 11.1 - 14.9 % CERDANIEL Comment:[address], [address] RDW SD 62.0(H) 35.7 - 48.1 fL [facility] Comment:[address], [address] NRBC abs 0.00 0.00 - 0.01 K/cumm LISA Comment:[address] [address] Blood 11/11/2024 5:29 AM CDT 11/11/2024 6:18 AM CDT us Emy Cardona MD LAB BLOOD ORDERABLES Final R esult LISA [address] [facility] Department [place] [address] * (ABNORMAL) Comprehensive metabolic panel (11/11/2024 5:29 AM CDT) Sodium 135 135 - 145 mmol/L LISA Comment:[address] [address] Potassium, pl 3.8 3.3 - 4.9 mmol/L LISA Comment:[address] [address] Chloride 92(L) 97 - 110 mmol/L LISA Comment:[address] [address] CO2 35(H) 22 - 32 mmol/L LISA Comment:[address] [address] Anion gap 8 2 - 15 mmol/L LISA Comment:[address] [address] BUN 44(H) 6 - 25 mg/dL LISA Comment:[address] [address] Creatinine 0.86 0.60 - 1.10 mg/dL LISA Comment:[address] [address] Glucose 129 70 - 199 mg/dL LISA Comment: Interpretive Data Fasting glucose >/= 126 mg/dl is diagnostic for diabetes. Fasting is defined as no caloric intake for at least 8 hours. Fasting glucose between 100 mg/dl to 125 mg/dl is diagnostic of prediabetes. In a patient with classic symptoms of hyperglycemia or hyperglycemic crisis, a random glucose >/= 200 mg/dl is diagnostic for diabetes. In the absence of unequivocal hyperglycemia, results should be confirmed by repeat testing. The classification and Diagnosis of Diabetes Diabetes Care 202; 46: S19-S40. Current interpretive data was last revised 2022. [facility], [address] [place]., [address] Calcium 9.1 8.5 - 10.3 mg/dL [facility] [facility] Comment:[address] [address] Bilirubin, total 0.3 0.1 - 1.2 mg/dL [facility] Comment:[address] [address] Protein, pl 6.9 6.5 - 8.5 g/dL [facility] Comment:[address] [address] Albumin 2.8(L) 3.5 - 5.0 g/dL [facility] Comment:[address] [address] Alk phos 284(H) 40 - 130 Units/L [facility] Comment:[address] [address] ALT 36 7 - 45 Units/L [facility] Comment:[address] [address] AST 48(H) 10 - 45 Units/L [facility] Comment:[address] [address] Blood 11/11/2024 5:29 AM CDT 11/11/2024 6:20 AM CDT Emy Cardona MD LAB BLOOD ORDERABLES Final R esult [facility] [address] Department [place] [address] * Hemoglobin A1c (07/16/2019 7:34 AM WRAPPER REWINDER) Hemoglobin A1c % 5.0 4.0 - 5.6 % [facility] Comment: ADA 2016 GUIDELINES: Initial Diagnostic Criteria HbA1c Result: Interpretation: <5.7% Normal 5.7-6.4% At risk for diabetes mellitus >=6.5% Consistent with diabetes mellitus Diabetes monitoring Target value (ADA Recommended) <7% 07/16/2019 7:34 AM WRAPPER REWINDER 07/16/2019 7:40 AM WRAPPER REWINDER Narrative Resulting Agency Comment CLI us Miguel Espinoza MD LAB BLOOD ORDERABLES [place] [address], [facility] [phone] * Dexa Axial Skeleton Bone Density 1 or 2 Site (06/08/2015 2:48 PM WRAPPER REWINDER) Anatomical Region Laterality Modality Body N/A Radiographic Keyla ging 06/08/2015 2:48 PM WRAPPER REWINDER Impressions 06/08/2015 4:50 PM WRAPPER REWINDER Bone mineral density in the lumbar spine, left total hip, left femoral neck and left forearm all fall in the range of low bone mass. Frax: Major osteoporotic fracture 14% Hip fracture 1.8% Bone mineral density: Normal (T-score above or = -1.0) Low bone mass (T-score between -1.0 and -2.5) replaces the previously used term osteopenia Osteoporosis (T-score = or below -2.5) Medical evaluation for secondary causes of low bone mineral density may be appropriate. FRAX is a World Health Organization validated fracture risk assessment tool that calculates a person's 10 year probability of a major osteoporosis related fracture and hip fracture. According to the National Osteoporosis Foundation guidelines, postmenopausal women and men age 50 or older with low bone mass and a 10 year probability of a major osteoporosis related fracture = or greater than 20% or a 10 year probability of a hip fracture = or greater than 3% should be considered for treatment. For further information, including treatment recommendations, please refer to the 2013 ISCD Official Positions (http://www.iscd.org) and the NOF's Clinician's Guide to Prevention and Treatment of Osteoporosis (http://www.nof.org/professionals/clinical-guidelines) THIS IS AN ELECTRONICALLY VERIFIED REPORT 06/08/2015 4:46 PM: Rose Carlin M.D. Rose Carlin M.D. TB:tb 04:46 PM 04:46 PM [facility] [EOD] Narrative 06/08/2015 4:50 PM WRAPPER REWINDER HISTORY: 65 year old postmenopausal female with given history of primary hyperparathyroidism. Current Height: 62 inches Maximum Height: 63 inches Weight: 253 pounds RISK FACTORS: Chronic antacid use. Hyperparathyroidism. COMPARISON(S): None BREAD WRAPPER/MODEL: EndoShape (S/N [id number]) FINDINGS: AP lumbar spine L1-L4 Total BMD is 0.918 g/hq9S-qnmwv is -1.2 Left Hip Total BMD is 0.771 g/jp2J-evzsd is -1.4 Neck BMD is 0.642 g/pm3Y-iipom is -1.9 Left forearm BMD in the radius 33% is 0.559 g/dm8T-jegwu is -2.2 Procedure Note Provider, MD Colleen - 12/14/2020 HISTORY: 65 year old postmenopausal female with given history of primary hyperparathyroidism. Current Height: 62 inches Maximum Height: 63 inches Weight: 253 pounds RISK FACTORS: Chronic antacid use. Hyperparathyroidism. COMPARISON(S): None BREAD WRAPPER/MODEL: EndoShape (S/N [id number]) FINDINGS: AP lumbar spine L1-L4 Total BMD is 0.918 g/pv3I-eovez is -1.2 Left Hip Total BMD is 0.771 g/qz2Z-ufort is -1.4 Neck BMD is 0.642 g/yn4Z-ynftf is -1.9 Left forearm BMD in the radius 33% is 0.559 g/ct1R-yoxxr is -2.2 IMPRESSION: Bone mineral density in the lumbar spine, left total hip, left femoralneck and left forearm all fall in the range of low bone mass. Frax: Major osteoporotic fracture 14% Hip fracture 1.8% Bone mineral density: Normal (T-score above or = -1.0) Low bone mass (T-score between -1.0 and -2.5) replaces the previously used term osteopenia Osteoporosis (T-score = or below -2.5) Medical evaluation for secondary causes of low bone mineral density may be appropriate. FRAX is a World Health Organization validated fracture risk assessmenttool that calculates a person's 10 year probability of a major osteoporosisrelated fracture and hip fracture. According to the National OsteoporosisFoundation guidelines, postmenopausal women and men age 50 or older with low bonemass and a 10 year probability of a major osteoporosis related fracture = or greater than 20% or a 10 year probability of a hip fracture = or greaterthan 3% should be considered for treatment. For further information, including treatment recommendations, please referto the 2013 ISCD Official Positions (http://www.iscd.org) and the NOF's Clinician's Guide to Prevention and Treatment of Osteoporosis (http://www.nof.org/professionals/clinical-guidelines) THIS IS AN ELECTRONICALLY VERIFIED REPORT 06/08/2015 4:46 PM: Rose Carlin M.D. Rose Carlin M.D. 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 Power of Fretted Instruments Inspector ADVANCE DIRECTIVE 10/18/2024 9:27 AM POLST - Phys Order for PT Preferences ADVANCE DIRECTIVE 09/04/2019 1:16 PM Power of Fretted Instruments Inspector-Medical ADVANCE DIRECTIVE 07/16/2019 12:00 AM POW ER OF RE[employer] * Full Code (Latest Code Status on File) Date Activated Date Inactivated Comments 10/30/2024 5:50 PM 11/09/2024 8:59 PM * Full Code Date Activated Date Inactivated Comments 10/22/2024 4:59 PM 10/28/2024 6:27 PM * Full Code Date Activated Date Inactivated Comments 10/14/2024 8:43 PM 10/17/2024 7:52 PM * Full Code Date Activated Date Inactivated Comments 12/14/2021 8:52 PM 12/15/2021 9:07 PM Care Teams Radiology Director Relationship Specialty Start Date End Date Ellen Rowley MD [address] [address] PCP - General Family Medicine 02/09/22
--- OUTSIDE RECORDS SUMMARY | 2025-02-10 10:17 | XMS_ITS | Clinical Summary ---
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
--- OUTSIDE RECORDS SUMMARY | 2025-02-10 10:17 | XMS_ITS | Clinical Summary ---
Author Organization [facility] Walk-in Appointment Scheduler Address [address] [place] [address] Care Team Providers Care Instructional Technology Teacher Name Role Phone Ellen Rowley MD Primary Care Provider [phone] Source Comments [facility] Affiliates and Associated Physician Practices is amultiple site organization consisting of ambulatory clinics and hospital sitesin [place], [place], [place] and [place]. This disclosure is being madepursuant to the Care Everywhere program and may not contain all information available regarding this patient. Last updated 18.[facility] Walk-in Appointment Scheduler Allergies Active Allergy Reactions Criticality Noted Date Comments Cefadroxil Headache 09/09/2024 Has tolerated zosyn, augmentin, and ceftriaxone in the past Lactose GI Discomfort 09/09/2024 Medications * Be aware that medications may not be up to date on this document. Alwaysverify current medications with the patient. bisacodyl (Dulcolax) 10 MG suppository Insert 1 (one) suppository into the rectum once daily as needed for Constipation 09/27/19 25 Active latanoprost (Xalatan) 0.005 % ophthalmic solution Instill 1 (one) drop into both eyes at bedtime 09/27/19 25 Active timolol maleate (Timoptic) 0.5 % ophthalmic solution Instill 1 (one) drop into both eyes every morning 09/29/19 25 Active pantoprazole (Protonix) 40 MG packet Take 1 (one) packet by mouth once daily 60 packet 2 5 12:10 PM EQUIPMENT MECHANIC SPECIALIST 09/27/19 25 Active levothyroxine (Synthroid) 112 MCG tablet 1 (one) tablet by Enteral Tube route once daily 30 tablet 12:10 PM EQUIPMENT MECHANIC SPECIALIST 09/27/19 25 Active Additional Information Patient not taking.Reported on 02/07/2025 traZODone (Desyrel) 50 MG tablet Take 1 (one) tablet by mouth at bedtime Active apixaban (Eliquis) 5 MG tablet Take 1 (one) tablet by mouth 2 times daily Active ferrous sulfate 325 (65 FE) MG tablet Take 1 (one) tablet by mouth once daily Active metoprolol tartrate IR (Lopressor) 25 MG tablet Take 1 (one) tablet by mouth once daily Active spironolactone (Aldactone) 25 MG tablet Take 1 (one) tablet by mouth once daily Active miconazole (Micatin) 2 % cream Apply to affected area once daily Active collagenase (Santyl) 250 UNIT/GM ointment Apply to affected area once daily Active nitroGLYCERIN (Nitrostat) 0.4 MG tablet Dissolve 1 (one) tablet under the tongue every 5 minutes as needed for Angina Active polyethylene glycol 3350 (Miralax) 17 g packet Take 17 (seventeen) g by mouth once daily Active levothyroxine (Synthroid) 150 MCG tablet Take 1 (one) tablet by mouth daily before breakfast Active benzonatate (Tessalon) 100 MG capsule TAKE 1 CAPSULE BY MOUTH THREE TIMES A DAY NEEDED FOR COUGH 12/01/19 24 Active carvedilol (Coreg) 6.25 MG tablet Take 1 (one) tablet by mouth 2 times daily with morning and evening meal Active nystatin (Mycostatin) 868949 UNIT/GM powder Apply to affected area 3 times daily 12/04/19 25 Active furosemide (Lasix) 40 MG tablet Take 1 (one) tablet by mouth once daily 12/20/19 25 Active Nutritional Supplement LIQD Take 1 container by mouth 3 times daily for 30 days Low Calorie High Protein Supplement Examples: Ensure High Protein/Boost High Protein/Premier Protein High Calorie High Protein Supplement Examples: Ensure Enlive/Ensure Plus High Protein/Boost Plus/Equate Plus Clear Liquid Supplement Examples: Ensure Clear/Premier Protein Clear/Resource Boost Breeze/Prosource High Protein Gelatin 01/17/20 25 025 Active acetaminophen (Tylenol) 325 MG tablet Take 2 (two) tablets by mouth every 6 hours as needed for Fever or Pain Maximum allowable Acetaminophen amount = 4 Grams (4000 mg) / 24 hours. 90 tablet 01/18/20 25 Active acetaminophen (Tylenol) 325 MG tablet Take 2 (two) tablets by mouth every 4 hours as needed for Fever or Pain Maximum allowable Acetaminophen amount = 4 Grams (4000 mg) / 24 hours. Discontinu ed(List Clean-Up) melatonin 1 MG tablet Take 5 (five) tablets by mouth at bedtime Discontinu ed(List Clean-Up) ondansetron (Zofran) 4 MG tablet Take 1 (one) tablet by mouth every 6 hours as needed for Nausea/Vomiting Discontinu ed(List Clean-Up) furosemide (Lasix) 20 MG tablet Take 1 (one) tablet by mouth once daily Discontinu ed(List Clean-Up) atorvastatin (Lipitor) 10 MG tablet Take 1 (one) tablet by mouth at bedtime Discontinu ed(List Clean-Up) lidocaine (Lidoderm) 5 % patch Apply 1 (one) patch to skin once daily Apply patch to most painful area and remove after 12 hours. May reapply a new patch 12 hours later. 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 Achalasia 09/09/2024 T2DM (type 2 diabetes mellitus) 09/09/2024 HTN (hypertension) 09/09/2024 Encounters Date Type Department Care Team Description 02/07/2025 9:00 AM CDT Office Visit [facility] [address] [place] [id number] Julieta Johnston APRN-LAURYN Han (Primary Dx) 01/15/2025 11:40 AM CDT Anesthesia Event [facility] [address] [place] [id number] Yahir Hameed MD 01/15/2025 11:14 AM CDT - 01/15/2025 2:14 PM CDT Surgery [facility] [address] [place] [phone] Roland Miller MD ROBOTIC ASSISTED ESOPHAGOMYOTOMY (HELLER) 01/15/2025 8:37 AM CDT - 01/17/2025 3:29 PM CDT Hospital Encounter 1E Surg - [facility] [address] [place] [phone] Roland Miller MD Cardiothoracic Surgery Discharge Disposition: Home or Self Care 01/15/2025 Travel 01/09/2025 7:31 AM CDT - 01/09/2025 11:59 PM CDT [facility] [address] [place] [phone] Roland Miller MD Discharge Disposition: Home or Self Care 01/09/2025 Travel 01/03/2025 10:00 AM CDT Office Visit [facility] [address] [place] [phone] Roland Miller MD Achalasieileen (Primary Dx) 12/31/2024 10:27 AM CDT - 12/31/2024 11:59 PM CDT Hospital Encounter [facility] - Outside Imaging Discharge Disposition: Home or Self Care 12/31/2024 10:27 AM CDT - 12/31/2024 11:59 PM CDT Hospital Encounter [facility] - Outside Imaging Discharge Disposition: Home or Self Care 12/06/2024 1:00 PM CDT Office Visit [facility] [address] [place] [phone] Roland Miller MD Achalasia (Primary Dx); Moderate protein-calorie malnutrition (HCC) 11/29/2024 1:00 PM CDT - 11/29/2024 2:30 PM CDT Surgery [facility] [address] [place] [address] Procedure, Nursing G_I GASTRIC MOTILITY STUDY 11/29/2024 12:13 PM CDT - 11/29/2024 1:56 PM CDT Hospital Encounter [facility] [address] [place] [phone] Xavi Weathers MD Surgery General Discharge Disposition: Home or Self Care 11/29/2024 Travel from Last 3 Months Immunizations Immunization Administration [...] you have a drink containing alcohol? Never 01/16/2025 Q2: How many drinks containi ng alcohol do you have on a typical day when you are drinking? Patient does not drink Q3: How often do you have si x or more drinks on one occasion? Never 01/16/2025 Overall Financial Resource Strain (CARDIA) Answe r Date Recorded How hard is it for you to pa y for the very basics like food, housing, medical care, and heating? Not hard at all 01/16/2025 [facility] Occupat ional Health - Occupational Stress Questionnaire Answer Date Recorded Do you feel stress - tense, restless, nervous, or anxious, or unable to sleep at night because your mind is troubled all the time - these days? Not at all 01/16/2025 Hunger Vital Sign Answer Date Recorded Within the past 12 months, y ou worried that your food would run out before you got the money to buy more. Never true 01/17/20 25 Within the past 12 months, t he food you bought just didn't last and you didn't have money to get more. Never true 01/16/2025 PRAPARE - Transportation Answer Date Re corded In the past 12 months, has l ack of transportation kept you from medical appointments or from getting medications? No 12/29 In the past 12 months, has l ack of transportation kept you from meetings, work, or from getting things needed for daily living? No 01/16/2025 Housing Stability Vital Sign Answer Filippo e Recorded In the last 12 months, was t here a time when you were not able to pay the mortgage or rent on time? No 01/16/2025 In the past 12 months, how m any times have you moved where you were living? 0 01/16/2025 At any time in the past 12 m [facility], were you homeless or living in a skilled nursing (including now)? No 01/16/2025 Comments Unknown Sex and Gender Information Value Date Recorded Sex Assigned at Not on file Legal Sex Female 10:45 PM EQUIPMENT MECHANIC SPECIALIST Gender Identity Not on file Sexual Orientation Not on file Last Filed Vital Signs Vital Sign Reading Time Taken Comments Blood Pressure 115/75 02/07/2025 8:55 AM CDT Pulse 76 02/07/2025 8:55 AM CDT Temperature 36.6 C (97.9 F) 01/17/2025 8:23 AM CDT Respiratory Rate 16 01/17/2025 8:23 AM CDT Oxygen Saturation 89% 02/07/2025 8: 55 AM CDT Inhaled Oxygen Concentration 21% 06/2025 11:37 AM EQUIPMENT MECHANIC SPECIALIST Weight 58.9 kg (129 lb 12.8 oz) 02/07/2025 8:55 AM CDT Height 157.5 cm (5' 2) 01/15/2025 9:23 AM CDT Body Mass Index 23.74 01/15/2025 9:23 AM CDT Plan of Treatment Health Maintenance Due Date Last Done Comments HEPATITIS C SCREENING 05/01/1966 DTAP/TDAP/TD VACCINES (1 - Tdap) 1967 PNEUMOCOCCAL VACCINE 50+ (1 of 2 - PCV) 1967 DIABETES-STATIN 1988 ZOSTER VACCINE (1 of 2) 1998 Respiratory Syncytial Virus (RSV) Vaccine Pt: or over 60 yrs (1 - 1-dose 75+ series) 2023 COVID-19 VACCINE ( season) 2024 10/10/2020, 09/18/2020 DEPRESSION SCREENING 07/31/2024 MEDICARE AWV CALENDAR YEAR 2024 DIABETES RETINOPATHY SCREENING 09/09/2024 DIABETES-FOOT EXAM WITH MONOFILAMENT 09/09/2024 INFLUENZA VACCINE (#1) 2025 , 04/18/2023, 04/10/2023, Additional history exists DIABETES-HGB A1C 06/04/2025 12/02/2024, 05/2025, 08/27/2024, Additional history exists DIABETES - URINE PROTEIN SCREENING 10/30/2025 10/30/2024, 02/13/2024 DIABETES-SERUM CREATININE 01/17/20262024, 01/16/2025, 01/09/2025, Additional history exists BONE DENSITY TESTING Completed 07/11/2024, 05/19/2022, 09/02/2020, Additional history exists HEPATITIS B VACCINE Aged [...] Procedure Name Priority Date/Time Associated Diagnosis Comments CARDIAC RHYTHM STRIP ORDER 01/20/2025 6:04 PM CDT APHERESIS/TRANSFUSIO N ORDER 01/20/2025 6:00 PM CDT GLUCOSE - POINT OF CARE Routine 01/17/2025 1:07 PM CDT GLUCOSE - POINT OF CARE Routine 01/17/2025 9:13 AM CDT PHOSPHORUS BLOOD Timed 01/17/2025 3:19 AM CDT MAGNESIUM BLOOD Timed 01/17/2025 3:19 AM CDT BASIC METABOLIC PANEL (CALCIUM TOTAL) Timed 01/17/2025 3:19 AM CDT CBC W AUTO DIFFERENTIAL Timed 01/17/2025 3:19 AM CDT GLUCOSE - POINT OF CARE Routine 01/16/2025 9:50 PM CDT GLUCOSE - POINT OF CARE Routine 01/16/2025 6:32 PM CDT GLUCOSE - POINT OF CARE Routine 01/16/2025 1:00 PM CDT GLUCOSE - POINT OF CARE Routine 01/16/2025 9:34 AM CDT FL ESOPHAGRAM STAT 01/16/2025 9:31 AM CDT Esophageal necrosis GLUCOSE - POINT OF CARE Routine 01/16/2025 4:30 AM CDT PHOSPHORUS BLOOD Timed 01/16/2025 3:24 AM CDT MAGNESIUM BLOOD Timed 01/16/2025 3:24 AM CDT BASIC METABOLIC PANEL (CALCIUM TOTAL) Timed 01/16/2025 3:24 AM CDT CBC W AUTO DIFFERENTIAL Timed 01/16/2025 3:24 AM CDT GLUCOSE - POINT OF CARE Routine 01/16/2025 12:50 AM CDT GLUCOSE - POINT OF CARE Routine 01/15/2025 8:23 PM CDT GLUCOSE - POINT OF CARE Routine 01/15/2025 4:59 PM CDT GLUCOSE - POINT OF CARE Routine 01/15/2025 3:00 PM CDT ENDOTRACHEAL TUBE NOTE Routine 01/15/2025 12:23 PM CDT OR ED EGD FLEX TRANSORAL DX 01/15/2025 11:19 AM CDT Achalasia Case Notes 01/15/25 2nd case 150 minutes Stop ELIQUIS 3 days prior to procedure Special Needs NEEDS CARPET BINDER, DAVINCI- NO REP, O.R ENDO CART / ## ATTN. ANESTHESIA: PATIENT HAS A [employer] SCI[employer] PACEMAKER PER PRE-TESTING (ELLEN)--01/09 KW ## OR LAP MYOTOMY, HELLER 01/15/2025 11:19 AM CDT Achalasia Case Notes 01/15/25 2nd case 150 minutes Stop ELIQUIS 3 days prior to procedure Special Needs NEEDS CARPET BINDER, DAVINCI- NO REP, O.R ENDO CART / ## ATTN. ANESTHESIA: PATIENT HAS A [employer] SCIENTIFIC PACEMAKER PER PRE-TESTING (ELLEN)--01/09 KW ## GLUCOSE - POINT OF CARE Routine 01/15/2025 9:21 AM CDT TYPE + SCREEN PANEL Pre-Op 01/15/2025 9 :20 AM CDT EKG 12-LEAD STAT 01/09/2025 7:56 AM CDT Preprocedural examination TYPE + SCREEN PANEL Pre-Op 01/09/2025 7 :42 AM CDT Preprocedural examination URINALYSIS REFLEX MICROSCOPIC REFLEX CULTURE Pre-Op 01/09/2025 7:42 AM CDT Preprocedural examination PT-INR Pre-Op 01/09/2025 7:42 AM CDT Preprocedural examination PTT Pre-Op 01/09/2025 7:42 AM CDT Preprocedural examination COMPREHENSIVE METABOLIC PANEL Pre-Op 01/09/2025 7:42 AM CDT Preprocedural examination CBC W AUTO DIFFERENTIAL Pre-Op 01/09/2025 7:42 AM CDT Preprocedural examination MOTILITY STUDY, ESOPHAGEAL Routine 11/29/2024 1:56 PM CDT Achalasia OR ESOPHAGUS MOTILITY STUDY 11/29/2024 1:16 PM CDT Achalasia HEMOGLOBIN A1C Routine 09/10/2024 2:04 AM EQUIPMENT MECHANIC SPECIALIST from Last 3 Months or Most Recently Relevant to Health Maintenance Results * CARDIAC RHYTHM STRIP ORDER (01/20/2025 6:04 PM CDT) Narrative 01/20/2025 6:04 PM CDT Ordered by an unspecified provider. us Scanned Document CARDIAC SERVICES ORDERABLES Darshan levi Result - Final * APHERESIS/TRANSFUSION ORDER (01/20/2025 6:00 PM CDT) Narrative 01/20/2025 6:00 PM CDT Ordered by an unspecified provider. us Scanned Document NURSING - VITAL SIGNS AND ASSES SMENT Final Result * (ABNORMAL) GLUCOSE - POINT OF CARE (01/17/2025 1:07 PM CDT) Only the most recent of12 resultswithin the time period is included. Glucose WB/POC 133(H) 70 - 99 mg/dL 01/17/2025 1:17 PM CDT [facility] Specimen Type Arterial/C apillary 01/17/2025 1:17 PM CDT [facility] Blood BLOOD SPECIMEN / Unknown 01/17/2025 1:07 PM CDT 01/17/2025 1:17 PM CDT us Roland Miller MD LAB - POINT OF CARE ORDERABLES Final Result [facility] [address] [place] [address] * (ABNORMAL) CBC W AUTO DIFFERENTIAL (01/17/2025 3:19 AM CDT) Only the most recent of3 resultswithin the time period is included. [facility] Signature WBC 3.8(L) 4.0 - 10.7 x10E9/L 01/17/2025 4:00 AM [facility] RBC Count 2.24(L) 3.90 - 5.20 x10E12/L 01/17/2025 4:00 AM [facility] Hemoglobin 7.5(L) 11.9 - 15.8 g/dL 01/17/2025 4:00 AM [facility] Hematocrit 23.2(L) 34.8 - 46.1 % 01/17/2025 4:00 AM [facility] MCV 103.6(H) 80.0 - 98.0 fL 01/17/2025 4:00 AM [facility] MCH 33.5 26.7 - 33.6 pg 01/17/2025 4:00 AM [facility] MCHC 32.3 31.7 - 36.3 g/dL 01/17/2025 4:00 AM [facility] RDW-CV 15.1(H) 11.3 - 14.8 % 01/17/2025 4:00 AM [facility] Platelet Count 156 150 - 420 x10E9/L 01/17/2025 4:00 AM [facility] MPV 11.6(H) 7.8 - 11.4 fL 01/17/2025 4:00 AM [facility] Neutrophil % 49.0 41.0 - 74.0 % 01/17/2025 4:00 AM [facility] Lymphocyte % 37.3 17.0 - 47.0 % 01/17/2025 4:00 AM [facility] Monocyte % 10.8 3.0 - 11.0 % 01/17/2025 4:00 AM [facility] Eosinophil % 2.1 0.0 - 7.0 % 01/17/2025 4:00 AM [facility] Basophil % 0.5 0.0 - 1.6 % 01/17/2025 4:00 AM [facility] Immature Granulocytes % 0.3 0.0 - 1.0 % 01/17/2025 4:00 AM [facility] Neutrophil Absolute 1.87 1.60 - 7.50 x10E9/L 01/17/2025 4:00 AM CDT [facility] Lymphocyte Absolute 1.42 1.00 - 4.40 x10E9/L 01/17/2025 4:00 AM CDT [facility] Monocyte Absolute 0.41 0.15 - 1.00 x10E9/L 01/17/2025 4:00 AM CDT [facility] Eosinophil Absolute 0.08 0.00 - 0.60 x10E9/L 01/17/2025 4:00 AM CDT [facility] Basophil Absolute 0.02 0.00 - 0.13 x10E9/L 01/17/2025 4:00 AM CDT [facility] Blood BLOOD SPECIMEN / Unknown Lab Venipuncture / Unknown 01/17/2025 3:19 AM CDT 01/17/2025 3:53 AM CDT us Roland Miller MD LAB - HEMATOLOGY ORDERABLES Fi nal Result [facility] [address] [place] [address] * (ABNORMAL) BASIC METABOLIC PANEL (CALCIUM TOTAL) (01/17/2025 3:19 AM CDT) Only the most recent of2 resultswithin the time period is included. Glucose 103(H) 70 - 99 mg/dL 01/17/2025 4:22 AM CDT [facility] Sodium 139 136 - 145 mmol/L 01/17/2025 4:22 AM CDT [facility] Potassium 4.6 3.5 - 5.1 mmol/L 01/17/2025 4:22 AM CDT [facility] Chloride 103 98 - 107 mmol/L 01/17/2025 4:22 AM CDT [facility] CO2 32(H) 22 - 29 mmol/L 01/17/2025 4:22 AM CDT [facility] Calcium 8.6 8.4 - 10.4 mg/dL 01/17/2025 4:22 AM CDT [facility] Anion Gap 4(L) 6 - 16 mmol/L 01/17/2025 4:22 AM CDT [facility] BUN 48(H) 7 - 26 mg/dL 01/17/2025 4:22 AM CDT [facility] Creatinine 1.01 0.57 - 1.11 mg/dL 01/17/2025 4:22 AM CDT [facility] eGFR by CKD-EPI 58(L) >=90 mL/min/1.7 3 m2 01/17/2025 4:22 AM CDT [facility] Blood BLOOD SPECIMEN / Unknown Lab Venipuncture / Unknown 01/17/2025 3:19 AM CDT 01/17/2025 3:53 AM CDT Roland Miller MD LAB - CHEMISTRY ORDERABLES Fin al Result Performing Organization Address City/[facility]/ZIP Co de Phone Number [facility] [address] [place] [phone] * PHOSPHORUS BLOOD (01/17/2025 3:19 AM CDT) Only the most recent of2 resultswithin the time period is included. Phosphorus 3.5 2.5 - 4.5 mg/dL 01/17/2025 4:22 AM CDT [facility] Blood BLOOD SPECIMEN / Unknown Lab Venipuncture / Unknown 01/17/2025 3:19 AM CDT 01/17/2025 3:53 AM CDT Roland Miller MD LAB - CHEMISTRY ORDERABLES Fin al Result Performing Organization Address City/[facility]/ZIP Co de Phone Number [facility] [address] [place] [phone] * MAGNESIUM BLOOD (01/17/2025 3:19 AM CDT) Only the most recent of2 resultswithin the time period is included. Magnesium 2.0 1.6 - 2.6 mg/dL 01/17/2025 4:22 AM CDT [facility] Blood BLOOD SPECIMEN / Unknown Lab Venipuncture / Unknown 01/17/2025 3:19 AM CDT 01/17/2025 3:53 AM CDT us Roland Miller MD LAB - CHEMISTRY ORDERABLES Fin al Result [facility] [address] [place], [place] [id number] * FL Esophagram (01/16/2025 9:31 AM CDT) Anatomical Region Laterality Modality Chest Radio Fluoroscop y 01/16/2025 9:44 AM CDT Impressions 01/16/2025 10:19 AM CDT IMPRESSION: Postsurgical changes of widening of the dorsal fundoplication without evidence of leak. Dilated proximal and mid esophagus, likely secondary to patient's known achalasia. There is passage of contrast through the diaphragmatic hiatus into the stomach past the gastroesophageal junction. > Dictated by Bran Frias MD I, Devon Meadows MD have personally reviewed and interpreted this examination/study. > Interpreting Provider: Devon Meadows MD on 01/16/2025 10:19 AM Narrative 01/16/2025 10:19 AM CDT PROCEDURE: FL ESOPHAGRAM DATE/TIME OF EXAM: 01/16/2025 9:34 AM CLINICAL INFORMATION: None relevant/not provided if blank. Indication: K22.89: Esophageal necrosis Additional History: COMPARISON: None. TECHNIQUE: Fluoroscopic cine and spot images were obtained with patient ingesting water-soluble contrast. FINDINGS: Postsurgical changes of shoulders myotomy with Louis fundoplication. There is no evidence of gastroesophageal leak. There is evidence of reflux. Proximal esophagus remains dilated. No evidence of extraluminal contrast extravasation. FLUOROSCOPY DOSE: 46.6 mGy Reference air kerma (ka,r). Procedure Note Devon Meadows MD - 01/16/2025 PROCEDURE: FL ESOPHAGRAM DATE/TIME OF EXAM: 01/16/2025 9:34 AM CLINICAL INFORMATION: None relevant/not provided if blank. Indication: K22.89: Esophageal necrosis Additional History: COMPARISON: None. TECHNIQUE: Fluoroscopic cine and spot images were obtained with patient ingesting water-soluble contrast. FINDINGS: Postsurgical changes of shoulders myotomy with Louis fundoplication. Thereis no evidence of gastroesophageal leak. There is evidence of reflux.Proximal esophagus remains dilated. No evidence of extraluminal contrast extravasation. FLUOROSCOPY DOSE: 46.6 mGy Reference air kerma (ka,r). IMPRESSION: Postsurgical changes of widening of the dorsal fundoplication without evidence of leak. Dilated proximal and mid esophagus, likely secondary to patient's known achalasia. There is passage of contrast through the diaphragmatic hiatus into the stomach past the gastroesophageal junction. > Dictated by Bran Frias MD I, Devon Meadows MD have personally reviewed and interpreted this examination/study. > Interpreting Provider: Devon Meadows MD on 01/16/2025 10:19 AM us Roland Miller MD FLUOROSCOPY ORDERABLES Final R esult * ETT LINE PERFORMABLE (01/15/2025 12:23 PM CDT) Narrative Tawanna Clay APRN-CRNA - 01/15/2025 12:23 PM CDT Tawanna Clay APRN-CRNA 01/15/2025 12:25 PM Endotracheal Tube Placement: Patient Location: OR. Intubation Event Date/Time: 01/15/2025 11:54 AM Procedure: intubation (02697) Procedure Section: Sedation: under general anesthesia. Indications for Airway Management: anesthesia Induction: modified rapid sequence Patient Position: sniffing and supine Mask Ventilation: easy with oral airway. Blade Type: Video (SRNA) Blade Size: 3 Laryngoscopy View: grade 1 (full cords) Intubation Adjuncts: stylet Nasal Airway Size: 7 Tube: endotracheal tube Placement: oral Tube type: cuff - inflated Tube Size (MM): 7 Cuff volume (mL): 8 Cuff Inflated With: air Number of Attempts: 1. Placement Verified By: direct visualization, bilateral breath sounds, chest auscultation and CO2 detector Dentition unchanged? Yes Difficult Airway? No. Procedure Start Time: 01/15/2025 11:54 AM. Staff Section Anesthesia Provider: Aryan Shafer MD Provider #1: Tawanna Clay APRN-CRNA. Provider #2: Aishwarya Garcia, Performed the procedure. us Yahir Hameed MD GENERAL ANESTHESIA EMERITA العلي Final Result * TYPE + SCREEN PANEL (01/15/2025 9:20 AM CDT) Only the most recent of2 resultswithin the time period is included. ABO Rh A POS 01/15/2025 10:13 AM CDT [facility] Comment:History checked. Antibody Screen NEG 10:13 AM CDT [facility] Blood Bank BLOOD SPECIMEN / Unknown Venipuncture / Unknown 01/15/2025 9:20 AM CDT 01/15/2025 9:23 AM CDT Roland Miller MD LAB - BLOOD BANK ORDERABLES Fi nal Result Performing Organization Address City/[facility]/ZIP Co de Phone Number [facility] [address] [phone] * EKG 12-Lead (01/09/2025 7:56 AM CDT) Ventricular Rate 105 BPM [facility] Atrial Rate 210 BPM [facility] QRS Duration ms 102 ms [facility] Q-T Interval ms 312 ms [facility] QTC Calculation (Bezet) 412 ms [facility] Calculated R [place] -46 degrees [facility] Calculated T [place] 7 degrees [facility] Interpretation EKG ATRIAL FLUTTER WITH 2:1 A-V CONDUCTION LEFT ANTERIOR FASCICULAR BLOCK MINIMAL VOLTAGE CRITERIA FOR LVH, MAY BE NORMAL VARIANT ( Epi product ) NONSPECIFIC ST ABNORMALITY ABNORMAL ECG WHEN COMPARED WITH ECG OF 18-SEP-2024 09:49, ATRIAL FLUTTER HAS REPLACED SINUS RHYTHM NONSPECIFIC T WAVE ABNORMALITY, IMPROVED IN INFERIOR LEADS T WAVE INVERSION NO LONGER EVIDENT IN LATERAL LEADS QT HAS SHORTENED Confirmed by MD STEPHANIE, ALEJANDRA ([id number]) on 01/09/2025 5:04:27 PM [facility] 01/09/2025 7:56 AM CDT 01/09/2025 5:04 PM CDT Roland Miller MD ECG ORDERABLES Edited Result - Final Performing Organization Address City/[facility]/ZIP Co de Phone Number [facility] * URINALYSIS REFLEX MICROSCOPIC REFLEX CULTURE (01/09/2025 7:42 AM CDT) Color UA Yellow Yellow, Straw 01/09/2025 8:07 AM CDT [facility] Clarity UA Clear Clear 01/09/2025 8:07 AM CDT [facility] Glucose UA Normal Normal 01/09/2025 8:07 AM CDT [facility] Bilirubin UA Negative Negative 01/09/2025 8:07 AM CDT [facility] Ketone UA Negative Negative 01/09/2025 8:07 AM CDT [facility] Specific Onyx UA 1.013 1.005 - 1.030 01/09/2025 8:07 AM CDT [facility] Blood UA Negative Negative 01/09/2025 8:07 AM T [facility] pH UA 6.5 5.0 - 8.0 01/09/2025 8:07 AM CDT [facility] Protein UA Negative Negative 01/09/2025 8:07 AM T [facility] Urobilinogen UA Normal Normal mg/dL 01/09/2025 8:07 AM CDT [facility] Nitrite UA Negative Negative 01/09/2025 8:07 AM CDT [facility] Leukocyte Esterase UA Negative Negative 01/09/2025 8:07 AM [facility] Reflex Status Culture not indicated 01/09/2025 8:07 AM T [facility] Urine Microscopy Urine microscopy not indicated 01/09/2025 8:07 AM [facility] Urine URINE SPECIMEN OBTAINED BY CLEAN CATCH PROCEDURE / Unknown Collection / Unknown 01/09/2025 7:42 AM CDT 01/09/2025 7:59 AM CDT Narrative [facility] - 01/09/2025 8:07 AM CDT us Roland Miller MD LAB - URINALYSIS ORDERABLES Fi nal Result [facility] [address] [place] [address] * PTT (01/09/2025 7:42 AM CDT) PTT 35.5 23.0 - 38.4 sec 01/09/2025 8:13 AM [facility] Blood BLOOD SPECIMEN / Unknown Venipuncture / Unknown 01/09/2025 7:42 AM CDT 01/09/2025 7:59 AM CDT Narrative [facility] - 01/09/2025 8:13 AM CDT Heparin Therapeutic Range for PTT: 69.0 - 110.0 seconds. Roland Miller MD LAB - COAGULATION ORDERABLES F inal Result Performing Organization Address [facility] de Phone Number [facility] [address] [place] [phone] * (ABNORMAL) PT-INR (01/09/2025 7:42 AM CDT) PT 15.7(H) 12.1 - 14.8 sec 01/09/2025 8:13 AM CDT [facility] INR 1.3(H) 0.9 - 1.1 01/09/2025 8:13 AM CDT [facility] Blood BLOOD SPECIMEN / Unknown Venipuncture / Unknown 01/09/2025 7:42 AM CDT 01/09/2025 7:59 AM CDT Narrative [facility] - 01/09/2025 8:13 AM CDT Conventional Warfarin Anticoagulant Therapy: INR Reference Range: 2.0-3.0 Intensive Warfarin Anticoagulant Therapy: INR Reference Range: 2.5-3.5 Roland Miller MD LAB - COAGULATION ORDERABLES F inal Result Performing Organization Address [facility] de Phone Number [facility] [address] [place] [phone] * (ABNORMAL) COMPREHENSIVE METABOLIC PANEL (01/09/2025 7:42 AM CDT) Glucose 112(H) 70 - 99 mg/dL 01/09/2025 8:25 AM CDT [facility] Sodium 135(L) 136 - 145 mmol/L 01/09/2025 8:25 AM CDT [facility] Potassium 4.0 3.5 - 5.1 mmol/L 01/09/2025 8:25 AM CDT [facility] Chloride 95(L) 98 - 107 mmol/L 01/09/2025 8:25 AM CDT [facility] CO2 30(H) 22 - 29 mmol/L 01/09/2025 8:25 AM CDT [facility] Calcium 10.2 8.4 - 10.4 mg/dL 01/09/2025 8:25 AM CDT [facility] Anion Gap 10 6 - 16 mmol/L 01/09/2025 8:25 AM CDT [facility] BUN 82(H) 7 - 26 mg/dL 01/09/2025 8:25 AM CDT [facility] Creatinine 1.15(H) 0.57 - 1.11 mg/dL 01/09/2025 8:25 AM CDT [facility] Alkaline Phosphatase 148 40 - 150 U/L 01/09/2025 8:25 AM CDT [facility] ALT 71(H) 6 - 57 U/L 01/09/2025 8:25 AM CDT [facility] AST 58(H) 10 - 48 U/L 01/09/2025 8:25 AM CDT [facility] Protein Total 8.4(H) 6.4 - 8.3 gm/dL 01/09/2025 8:25 AM CDT [facility] Albumin 3.6 3.1 - 4.5 gm/dL 01/09/2025 8:25 AM CDT [facility] Bilirubin Total 0.5 0.2 - 1.2 mg/dL 01/09/2025 8:25 AM CDT [facility] eGFR by CKD-EPI 49(L) >=90 mL/min/1.7 3 m2 01/09/2025 8:25 AM CDT [facility] Blood BLOOD SPECIMEN / Unknown Venipuncture / Unknown 01/09/2025 7:42 AM CDT 01/09/2025 8:00 AM CDT us Roland Miller MD LAB - CHEMISTRY ORDERABLES Fin al Result [facility] [address] [place] [address] * Motility Study, Esophageal (11/29/2024 1:56 PM CDT) Narrative [facility] - 11/29/2024 1:56 PM CDT Xavi Weathers MD 12/03/2024 11:33 AM GI Physiology Note Ms. Najera attended [facility] for high resolution esophageal manometry. Please see media tab for full report and interpretation. Please note that the physical written reports are scanned to [facility] and can take 24-48 hours to [...] MD GI PROCEDURE ORDERABLES Samantha l Result [facility] * HEMOGLOBIN A1C (09/10/2024 2:04 AM [facility]) Hemoglobin A1c 4.9 <=5.6 % 09/10/2024 8:53 AM [facility] Estimated Average Glucose 94 mg/dL 09/10/2024 8:53 AM [facility] Comment: HbA1c Interpretation: Normal : < 5.7% Pre-diabetes: 5.7-6.4% Diabetes: Equal to or greater than 6.5% Test results diagnostic of diabetes should be repeated for confirmation. Treatment target values recommended by ADA and other clinical organizations should be used to evaluate metabolic control in patients. Reference: [place] [employer], Standards of Care in Diabetes -2020 In patients 70 years and older consider HbA1c target range of 7.0-7.5% (Reference: Harsh Stanley, et al. JAMDA. 2012) The Sebia assay for the measurement of HbA1c is a National Glycohemoglobin Standardization Program (NGSP) certified method. Blood BLOOD SPECIMEN / Unknown Venipuncture / Unknown 09/10/2024 2:04 AM EQUIPMENT MECHANIC SPECIALIST 09/10/2024 2:14 AM EQUIPMENT MECHANIC SPECIALIST us Jerel Ceja MD LAB - CHEMISTRY ORDERABLES F inal Result [facility] [address] [place] [address], [facility] [phone] from Last 3 Months or Most Recently Relevant to Health Maintenance Insurance [employer] MEDICARE ADV Advance Directives * Full Code (Latest Code Status on File) Date Activated Date Inactivated Comments 01/15/2025 2:50 PM 01/17/2025 4:34 PM * Full Code Date Activated Date Inactivated Comments 09/09/2024 3:24 PM 09/27/2024 3:43 PM Care Teams Instructional Technology Teacher Relationship Specialty Start Date End Date Ellen Rowley MD [address] [place] [address] PCP - General Family Medicine 07/31/24
--- OUTSIDE RECORDS SUMMARY | 2025-02-10 10:17 | XMS_ITS | Encounter Summary ---
Author Organization [facility] Address [address] [place] [address] Care Team Providers Care Leadership Development Consultant Name Role Phone Ellen Rowley MD Primary Care Provider [phone] Reason for Visit * Reason Onset Date Comments Care Management Other 09/10/2024 Initial as sessment/verify face sheet information Encounter Details Date Type Department Care Team (Late st Contact Info) Description 09/10/[address] [facility] CARE COORDINATION [address] [place] [address] [phone] Mary Ellen Solis, RN Care Management Other [...] care, and heating? Not very hard 09/10/2024 [facility] [place] of Occupat ional Health - Occupational Stress [...] any time in the past [facility], were you homeless or living in a assisted (including now)? 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 Answer Date of Assessment Author No 09/09/2024 3:15 PM Jose Quinteros RN * Is person blind or have serious difficulty seeing? Answer Date of Assessment Author No 09/09/2024 3:15 PM Janna Quinteros RN * Does person have serious [...] Entry Date Author No 09/09/2024 3:15 PM Jose Quinteros RN documented in this encounter Plan of Treatment Not on file documented as of this encounter Visit Diagnoses Not on filedocumented in this encounter Care Teams Leadership Development Consultant Relationship Specialty Start Date End Date Ellen Rowley MD [address] [place] [address] PCP - General Family Medicine 07/31/24 documented as of this encounter
--- OUTSIDE RECORDS SUMMARY | 2025-02-10 10:17 | XMS_ITS | Clinical Summary ---
Author Organization [facility] Address [address] [place] [phone] Care Team Providers Care Accelerator Systems Director Name Role Phone Ellen Rowley MD [...] 1 tablet (137 mcg total) by mouth phlebotomy services representative before breakfast 30 tablet 1 10/19/19 25 [...] very moment. The critical access team from [facility] was also attending to the patient. She [...] 11:01 AM CDT): I endorse admission to assisted care. The patient is at risk of [...] care. Assessment & Plan (10/01/2024 9:52 AM ELECTRICAL LOGGING OPERATOR): I endorse admission to assisted care. The patient is at risk of [...] off. Assessment & Plan (10/01/2024 10:08 AM ELECTRICAL LOGGING OPERATOR): I have viewed the injury of concern. [...] a.m. Assessment & Plan (10/01/2024 2:24 PM ELECTRICAL LOGGING OPERATOR): Hemoglobin lower but overall stable, H&H 8.2/26.0. [...] appointment with thoracic surgery and GI at [facility]. He will retrieve the dates and times and bring those to our medical team. Assessment & Plan (10/03/2024 12:17 PM ELECTRICAL LOGGING OPERATOR): Continue Jevity 1.5 tube feeding 60 mL/hour through the jejunostomy tube. Discussed with and dietitian. They are considering bolus feedings prior to discharging home. Assessment & Plan (10/01/2024 10:00 AM ELECTRICAL LOGGING OPERATOR): Because of her esophageal achalasia and stenosis [...] daily. Assessment & Plan (10/03/2024 12:17 PM ELECTRICAL LOGGING OPERATOR): Continue Synthroid 112 mcg daily. Assessment & Plan (10/01/2024 9:59 AM ELECTRICAL LOGGING OPERATOR): This is a chronic problem. We will continue levothyroxine 112 mcg daily. 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 Continue the scripting of latanoprost 1 drop in both eyes once daily at bedtime and timolol 1 drop in both eyes daily. Assessment & Plan (10/03/2024 12:19 PM ELECTRICAL LOGGING OPERATOR): We will continue latanoprost and timolol as scripted Assessment & Plan (10/01/2024 10:01 AM ELECTRICAL LOGGING OPERATOR): We will continue scripting of latanoprost 0.005%, [...] follow. Assessment & Plan (10/01/2024 9:59 AM ELECTRICAL LOGGING OPERATOR): Dietary will evaluate and advise. Hemorrhoids with complication 05/12/2021 History of total left knee replacement (TKR) Left-sided abdominal pain of unknown etiology Obesity, Class I, BMI 30-34.9 05/12/2021 Recurrent urinary tract infection 05/12/2021 Abnormal barium swallow 11/20/2020 Overview (05/12/2021): Added automatically from request for surgery [id number] Achalasia of cardia 11/20/2020 Overview (05/12/2021): Added automatically from request for surgery [id number] Assessment & Plan (11/29/2024 2:05 PM CDT): [...] She will have esophageal motility studies at [facility] tomorrow. She will continue jejunostomy tube feedings as followed by dietary. Assessment & Plan (11/26/2024 4:29 PM CDT): She has an appointment at [facility] on Monday of this week for [...] office Assessment & Plan (10/03/2024 12:18 PM ELECTRICAL LOGGING OPERATOR): She now has a follow up appointment scheduled with the active directory architect and thoracic surgeon. Assessment & Plan (10/01/2024 2:24 PM ELECTRICAL LOGGING OPERATOR): Status post J-tube placement. Tolerating continuous tube [...] Colace. Assessment & Plan (10/01/2024 10:02 AM ELECTRICAL LOGGING OPERATOR): She currently is unable eat. She is being fed by jejunostomy tube feedings. She will follow up with her thoracic surgeon in 4-6 weeks per the discharge summary instructions. This is Dr. Miller with [facility]. She is being considered for a Heller myotomy. The social service department is arranging the follow up appointment and the and patient had been so advised. Weight loss 11/20/2020 Overview (05/12/2021): Added automatically from request for surgery [id number] Graves disease 05/25/2020 Dysphagia 04/17/2020 Overview (05/12/2021): Added automatically from request for surgery [id number] Assessment & Plan (11/24/2024 2:39 PM CDT): [...] intervention. Assessment & Plan (10/01/2024 10:00 AM ELECTRICAL LOGGING OPERATOR): Follow up labs are ordered. Essential hypertension [...] dizziness/lightheadedness). Assessment & Plan (10/02/2024 8:45 AM ELECTRICAL LOGGING OPERATOR): BP remains lower, but pt is asymptomatic. Encouraged continue clear liquid intake, monitor for orthostasis Assessment & Plan (10/01/2024 9:59 AM ELECTRICAL LOGGING OPERATOR): We will monitor serial vital signs for trending. Our goal will be us the systolic blood pressures of 150 and a diastolic blood pressure below 90. Resolved Problems Problem Noted Date Diagnosed Date Resolved Date Pressure injury 11/14/2024 11/14/2024 Anemia 10/22/2024 11/12/2024 Well child examination 05/12/202110/01 Encounters Date Type Department Care Team Description 02/06/2025 3:00 PM CDT Office Visit [facility] Infectious Disease [address] [place] [phone] Onesimo Welch MD Mycobacterium avium infection (HCC) (Primary Dx) 02/06/2025 Telephone [facility] Pulmonology [address] [place] [phone] Onesimo Welch MD 01/30/2025 10:30 AM CDT Ancillary Procedure [facility] Cardiology [address] [place] [phone] Tachy-lidia syndrome (HCC); Syncope, unspecified syncope type; Pacemaker; Atrial fibrillation, unspecified type (HCC) 01/30/2025 10:30 AM CDT Office Visit [facility] Cardiology [address] [place] [phone] Sam Young MD Nonrheumatic mitral valve regurgitation (Primary Dx) 01/30/2025 Orders Only [facility] Cardiology [address] [place] [phone] Sam Young MD Sinus node dysfunction (HCC) (Primary Dx); Tachy-lidia syndrome (HCC); Complete heart block (HCC); Pacemaker 01/29/2025 10:45 AM CDT Office Visit [facility] Pulmonology [address] [place] [phone] Javier Pham MD 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); Pulmonary nodule; Abnormal CT of the chest; Cough, unspecified type 01/22/2025 Telephone [facility] Nephrology at [place] [address] [facility] [address] [place] [address] Jayden Verde 12/03/2024 Telephone [facility] Post Acute Care [address] [facility] [address], [place] [address] Na Mcdaniel MA 11/30/2024 Orders Only [facility] Hospitalists [address] [place] [phone] Emy Cardona MD 11/29/2024 Orders Only [facility] Hospitalists [address] [place] [phone] Kaleigh Mercedes PA 11/29/2024 NH/SNF Visit [address] [phone] Kaleigh Mercedes PA Complete heart block (HCC) (Primary Dx); Achalasia of cardia; Essential hypertension; Atrial fibrillation, unspecified type (HCC); Postoperative hypothyroidism; Hyponatremia; Stage 2 chronic kidney disease; Anemia, unspecified type; Pressure injury of sacral region, unstageable (HCC) 11/28/2024 NH/SNF Visit [facility] Care [address] [phone] Emy Cardona MD Atrial fibrillation, unspecified type (HCC) (Primary Dx); Essential hypertension; Pacemaker; Achalasia of cardia 11/27/2024 9:30 AM CDT Office Visit [facility] Cardiology [address] [facility] [address] [place] [phone] Tabitha Washburn NP Complete heart block (HCC) (Primary Dx); Atrial fibrillation, unspecified type (HCC); Nonrheumatic mitral valve regurgitation; Essential hypertension; Dyslipidemia, goal LDL below 100; Sinus node dysfunction (HCC) 11/26/2024 12:56 AM CDT - 11/26/2024 3:26 AM CDT Emergency [place] [id number] [place] [address] Toshia Tubbs MD Encounter for care related to feeding tube (Primary Dx); Gastrostomy tube skin breakdown (HCC) Discharge Disposition: Discharge to home or self care 11/26/2024 NH/SNF Visit [facility] Medical [facility] Post Acute Care [address] [phone] Emy Cardona MD Essential hypertension (Primary Dx); Pacemaker; Postoperative hypothyroidism; Achalasia of cardia; Atrial fibrillation, unspecified type (HCC) 11/25/2024 Orders Only [facility] Medical [facility] Hospitalists [address] [place] [phone] Kaleigh Mercedes PA 11/25/2024 NH/SNF Visit [facility] Medical [facility] Post Acute Care [address] [phone] Kaleigh Mercedes PA Atrial fibrillation, unspecified type (HCC) (Primary Dx); Anemia, unspecified type; Stage 2 chronic kidney disease 11/24/2024 NH/SNF Visit [facility] Medical [facility] Post [facility] Care [address] [phone] Emy Cardona MD Atrial fibrillation, unspecified type (HCC) (Primary Dx); Postoperative hypothyroidism; Dysphagia, unspecified type 11/20/2024 NH/SNF Visit [facility] Medical [facility] Post Acute Care [address] [phone] Kaleigh Mercedes PA Atrial fibrillation, unspecified type (HCC) (Primary Dx); Achalasia of cardia; Essential hypertension 11/18/2024 NH/SNF Visit [facility] Medical [facility] Post Acute Care [address] [phone] Kaleigh Mercedes PA Essential hypertension (Primary Dx); Hyponatremia; Anemia, unspecified type 11/18/2024 Orders Only [facility] Hospitalists [address] [place] [phone] Kaleigh Mercedes PA 11/15/2024 NH/SNF Visit [facility] Post Acute Care [address] [phone] Kaleigh Mercedes PA Pressure injury of sacral region, unstageable (HCC) (Primary Dx); Slow transit constipation; Complete heart block (HCC); Essential hypertension 11/14/2024 Documentation [facility] Cardiology [address] [phone] Feliciano Peguero MD Pacemaker Check 11/13/2024 Orders Only [facility] Hospitalists [address] [place] [phone] Emy Cardona MD 11/13/2024 NH/SNF Visit [facility] Post [facility] Care [address] [phone] Kaleigh Mercedes PA Complete heart block (HCC) (Primary Dx); Hyponatremia; Anemia, unspecified type; Slow transit constipation 11/11/2024 Results Follow-Up [facility] Post [facility] Care [address] [phone] Emy Cardona MD CBC with auto differential, Differential, auto, Comprehensive metabolic panel, eGFR 11/11/2024 NH/SNF Visit [facility] Post Acute Care [address] [phone] Emy Cardona MD Generalized weakness (Primary Dx); [...] glaucoma of right eye 11/11/2024 Orders Only [facility] Hospitalists [address] [place] [phone] Emy Cardona MD from Last 3 Months Immunizations Immunization Administration Dates Next Due Pneumococcal Polysaccharide PPV23 04/01/2020 Surgical History Surgery Date Site/Laterality Comments CHOLECYSTECTOMY APPENDECTOMY long time ago TONSILLECTOMY as a child REPLACEMENT TOTAL KNEE Right 2019 CATARACT EXTRACTION, BILATERAL DILATION AND CURETTAGE OF UTERUS ESOPHAGEAL DILATION several times THYROIDECTOMY with left upper PTH adenoma resection 12/14/2021 COLONOSCOPY years ago PORT PLACEMENT CHEST >5 YEARS 09/16/2024 N/A CARDIAC ELECTROPHYSIOLOGY PROCEDURE 10/30/2024 N/A Procedure: INSERT TEMPORARY PACEMAKER (PPM) SINGLE LEAD [id number]; Surgeon: Feliciano Peguero MD; Location: [facility]; Service: Cardiovascular; Laterality: N/A; CARDIAC ELECTROPHYSIOLOGY PROCEDURE 10/31/2024 Left Procedure: IMPLANT DUAL CHAMBER PPM SYSTEM W/ DUAL ELECTRODES (GEN AND LEADS, NEW OR REPLACE) [id number]; Surgeon: Feliciano Peguero MD; Location: [facility]; Service: Cardiovascular; Laterality: Left; Medical devices from this surgery are in the Medical Devices section. ENTERIC TUBE INJECTION 11/26/2024 N/A GASTROSTOMY TUBE PLACEMENT 09/24/2024 GASTROSTOMY TUBE REVISION 01/15/2025 MYOTOMY 01/15/2025 Medical History Medical History Date Comments Hypertension Hypercholesteremia Thyroid disease Osteoarthritis Peripheral neuropathy Cancer (HCC) thyroid Type 2 diabetes mellitus (HCC) Glaucoma Osteopenia Lung nodules History of COVID-19 06/2020; not hospitalized Hiatal hernia Esophageal achalasia history bot ox injection; followed by GI Dysphagia Arthritis Anemia CKD (chronic kidney disease) , stage III (HCC) stage 3b; per EMR Graves disease thyroidectomy 20 GERD (gastroesophageal reflux disease) Hypothyroidism Mycobacterium avium complex (HCC) Family History Relation Name Status Comments Father Mother Social History Tobacco Use Types Packs/Day Years Used Date Smoking Tobacco: Never Passive Smoke Exposure: Never Smokeless Tobacco: Never Tobacco Cessation:Counseling Given: Not Answered Alcohol Use Standard Drinks/Week Comments Not Currently 0 (1 standard drink = 0.6 oz pur e alcohol) [facility] Utilities Answer Date Recorded In [...] often do you attend chur ch or muslim services? Never 10/31/2024 Do you belong to [...] time in the past 12 m [facility], were you homeless or living in a intermediate (including now)? No 11/05/2024 Personal Safety Answer Date Recorded Have you ever been in or are you currently in a harmful physical or emotional relationship or is someone making you feel afraid or unsafe? Denies 11/26/2024 Comments Unknown Sex and Gender Information Value Date Recorded Sex Assigned at Not on file Legal Sex Female 5:32 PM ELECTRICAL LOGGING OPERATOR Gender Identity Not on file Sexual Orientation Not on file Obstetrics History Last Filed Vital Signs Vital Sign Reading [...] 02/06/2025 3:05 PM CDT Plan of Treatment Health Maintenance Due Date Last Done Comments Albumin Creatinine Ratio, Urine 1948 Hepatitis C Screening 1950 Dilated Eye Exam 1948 Foot Exam 1950 DTaP/Tdap/Td Vaccine (1 - Tdap) 1959 Hepatitis B Screening 1966 Well Visit 65+ 2013 Pneumococcal vaccine 65+ (2 of 2 - PCV) 04/01/2021 04/01/2020 Covid-19 Vaccine (2023-2 5 season) 2024 05/18/2021, 10/10/2020, 09/18/2020 Hemoglobin A1C 03/10/2025 09/10/2024, 07/16/2019 Influenza Vaccine (#1) 2025 , 04/18/2023, 04/10/2023, Additional history exists Depression Screening 10/30/2025 10/30/2024, 10/30/2024, 10/14/2024, Additional history exists Fall Risk Assessment 11/09/2025 11/09/2024 eGFR 11/30/2025 11/30/2024, 08/2024, 11/25/2024, Additional history exists Lipid Panel 12/09/2025 12/09/2024, 10/31, 02/15/2024, Additional history exists Osteoporosis Screening-Bone Density Scan 07/11/2026 07/11/2024, 05/19/2022, 09/02/2020, Additional history exists Zoster Vaccine Completed 05/20/2024, 02/27/2024 Breast Cancer Screening-Mammogram Discontinued 06/28/2024, 06/28/2024, 06/27/2023, Additional history exists Medical Devices Implanted Type Area Senior Accountant Cpa Device Identifier Shelf Expiration Date Model / Serial / Lot Knee Components Right: Knee [employer] Active Fixation Steroid Eluting Is 1 Connector Latex Free Sterile Right Atrial Right Atrial Ingevity Plus 59cm 7842 - [id number] Implanted:Qty: 1 on 10/31/2024 by Feliciano Peguero MD at [facility] [employer] 7842 / / [employer] Lead 7841 Endocardial Pacing Mr Is-1 Bipolar Connection 7841 - [id number] - [id number] Implanted:Qty: 1 on 10/31/2024 by Feliciano Peguero MD at [facility] [employer] [id number] 09/09/2026 7841 / [id number] / [employer] C.[employer].M. Accolade Latitude Nxt Pacesafe Easyview 4.45x5.02cm 2 Chamber Is1 L311 - [id number] - [id number] Implanted:Qty: 1 on 10/31/2024 by Feliciano Peguero MD at [facility] C.R.M. [id number] 06/12/2026 L311 / [id number] / Procedures Procedure Name Priority Date/Time Associated [...] CDT HEMOGLOBIN A1C Routine 07/16/2019 7:34 AM ELECTRICAL LOGGING OPERATOR DEXA AXIAL SKELETON BONE DENSITY 1 OR MORE SITES Routine 06/08/2015 2:48 PM ELECTRICAL LOGGING OPERATOR from Last 3 Months or Most Recently [...] Current interpretive data was last reviewed 2021. [facility], [address] [place] [address]., [address] Blood 11/30/2024 10:2 1 AM CDT 11/30/2024 10:29 AM CDT Emy Cardona MD LAB BLOOD ORDERABLES Final R esult [address] Department [place] [address] * (ABNORMAL) Basic metabolic panel (11/30/2024 10:21 AM CDT) Sodium 132(L) 135 - 145 mmol/L LISA Comment:[address] [address] Potassium, pl 5.0(H) 3.3 - 4.9 mmol/L LISA Comment:[address] [address] Chloride 95(L) 97 - 110 mmol/L LISA Comment:[address] [address] CO2 27 22 - 32 mmol/L [facility]:[address] [address] Anion gap 10 2 - 15 mmol/L LISA Comment:[address] [address] BUN 45(H) 6 - 25 mg/dL LISA Comment:[address] [address] Creatinine 0.82 0.60 - 1.10 mg/dL LISA Comment:[address] [address] Glucose 123 70 - 199 mg/dL [facility] Comment: Interpretive Data Fasting glucose >/= 126 [...] classification and Diagnosis of Diabetes Diabetes Care 2022; 46: S19-S40. Current interpretive data was last revised 2022. [facility], [address] [place] [address]., [address] Calcium 9.5 8.5 - 10.3 mg/dL LISA ANDREW Comment:[facility], [address] [place]., [address] Blood 11/30/2024 10:2 1 AM CDT 11/30/2024 10:29 AM CDT Emy Cardona MD LAB BLOOD ORDERABLES Final R esult Performing Organization Address [facility] Co de Phone Number LISA [address] Department [place] [address] * eGFR (11/29/2024 6:09 AM CDT) eGFR 68 >=60 mL/min/1. 73 m2 LISA ANDREW Comment: [...] Current interpretive data was last reviewed 2021. [facility], [address] [place] [address]., [address] Blood 11/29/2024 6:09 AM CDT 11/29/2024 6:46 AM CDT Kaleigh MEDRANO LAB BLOOD ORDERABLES Final Resu lt Performing Organization Address City/[facility]/ZIP Co de Phone Number LISA [address] [facility] Department [place] [address] * (ABNORMAL) CBC without differential (11/29/2024 6:09 AM CDT) WBC 4.55 3.80 - 9.90 K/cumm LISA Comment:[address], [address] Hgb 7.8(L) 11.9 - 15.5 g/dL LISA Comment:[address], [address] Hct 24.5(L) 35.6 - 45.5 % LISA Comment:[address], [address] Plt 250 150 - 400 K/cumm LISA Comment:[address], [address] MPV 10.6 9.1 - 12.3 fL LISA Comment:[address], [address] RBC 2.44(L) 3.90 - 5.20 M/cumm LISA Comment:[address], [address] MCV 100.4(H) 81.3 - 96.4 fL LISA Comment:[address], [address] MCH 32.0 27.1 - 33.3 pg LISA Comment:[address], [address] MCHC 31.8(L) 32.3 - 35.7 g/dL LISA Comment:[address], [address] RDW CV 15.6(H) 11.1 - 14.9 % LISA Comment:[address], [address] RDW SD 57.5(H) 35.7 - 48.1 fL LISA Comment:[address], [address] NRBC abs 0.00 0.00 - 0.01 K/cumm LISA Comment:[address] [address] Blood 11/29/2024 6:09 AM CDT 11/29/2024 6:45 AM CDT Kaleigh MEDRANO LAB BLOOD ORDERABLES Final Resu lt [facility] [address] [facility] Department [place] [address] * (ABNORMAL) Basic metabolic panel (11/29/2024 6:09 AM CDT) Sodium 132(L) 135 - 145 mmol/L LISA Comment:[address] [address] Potassium, pl 4.6 3.3 - 4.9 mmol/L LISA Comment:[address] [address] Chloride 96(L) 97 - 110 mmol/L LISA Comment:[address] [address] CO2 31 22 - 32 mmol/L LISA Comment:[address] [address] Anion gap 5 2 - 15 mmol/L LISA Comment:[address] [address] BUN 48(H) 6 - 25 mg/dL LISA Comment:[address] [address] Creatinine 0.88 0.60 - 1.10 mg/dL LISA Comment:[address] [address] Glucose 90 70 - 199 mg/dL LISA [...] Current interpretive data was last revised 2022. [facility], [address] [place]., [address] Calcium 8.9 8.5 - 10.3 mg/dL LISA Comment:[facility], [address] [place]., [address] Blood 11/29/2024 6:09 AM CDT 11/29/2024 6:46 AM CDT Kaleigh MEDRANO LAB BLOOD ORDERABLES Final Resu lt LISA [address] [facility] Department [place] [address] * (ABNORMAL) POCT lipid panel (11/27/2024 9:38 [...] plastic piece in place at this time. us Toshia Tubbs MD IN CLINIC/BEDSIDE ORDERA BLES Final Result * XR Abdomen Gastro Tube Placement Check (11/26/2024 2:04 AM CDT) Anatomical Region Laterality Modality Body N/A Computed Radiogr aphy 11/26/2024 2:39 AM CDT Narrative 11/26/2024 2:40 AM CDT EXAM DESCRIPTION: XR ABDOMEN GASTRO TUBE PLACEMENT CHECK REASON FOR STUDY: g-tube placement verification J-tube placement verification; 60 mL Gastroview inserted; Brought from [facility] having J tube issue this am, balloon [...] Julia Stein M.D. SN T: Report ID: [id number] Reading Location: [id number] Procedure Note Julia Stein MD - 11/26/2024 EXAM DESCRIPTION: XR ABDOMEN GASTRO TUBE PLACEMENT CHECK REASON FOR STUDY: g-tube placement verification J-tube placement verification; 60 mL Gastroview inserted; Brought from [facility] having J tube issue this am, balloon [...] Julia Stein M.D. SN T: Report ID: [id number] Reading Location: [id number] Toshia Tubbs MD IMG XR PROCEDURES Final Result * XR Abdomen Ap 1 Vw (11/26/2024 2:04 AM CDT) Anatomical Region Laterality Modality Body, Abdomen N/A Computed Radiogr aphy 11/26/2024 2:37 AM CDT Narrative 11/26/2024 2:39 AM CDT EXAM DESCRIPTION: XR ABDOMEN AP 1 VIEW REASON FOR STUDY: G tube placement confirmation J-tube placement verification; Brought from [facility] having J tube issue this am, balloon [...] Julia Stein M.D. SN T: Report ID: [id number] Reading Location: [id number] Procedure Note Julia Stein MD - 11/26/2024 EXAM DESCRIPTION: XR ABDOMEN AP 1 VIEW REASON FOR STUDY: G tube placement confirmation J-tube placement verification; Brought from [facility] having J tube issue thisam, balloon is [...] Julia Stein M.D. SN T: Report ID: [id number] Reading Location: [id number] us Toshia Tubbs MD IMG XR PROCEDURES Final [...] Current interpretive data was last reviewed 2021. [facility], [address] [place] [address]., [address] Blood 11/25/2024 6:55 AM CDT 11/25/2024 7:48 AM CDT us Kaleigh MEDRANO LAB BLOOD ORDERABLES Final Resu lt LISA ANDREW [address] [place] [address] Department [place] [address] * (ABNORMAL) CBC without differential (11/25/2024 6:55 AM CDT) WBC 7.82 3.80 - 9.90 K/cumm LISA ANDREW Comment:[address] [address] Hgb 7.6(L) 11.9 - 15.5 g/dL LISA ANDREW Comment:[address] [address] Hct 24.1(L) 35.6 - 45.5 % LISA ANDREW Comment:[address] [address] Plt 232 150 - 400 K/cumm LISA ANDREW Comment:[address] [address] MPV 11.1 9.1 - 12.3 fL LISA Comment:[address] [address] RBC 2.44(L) 3.90 - 5.20 M/cumm LISA Comment:[address] [address] MCV 98.8(H) 81.3 - 96.4 fL LISA Comment:[address], [address] MCH 31.1 27.1 - 33.3 pg LISA MH Comment:[address], [address] MCHC 31.5(L) 32.3 - 35.7 g/dL LISA Comment:[address], [address] RDW CV 16.1(H) 11.1 - 14.9 % LISA Comment:[address], [address] RDW SD 58.4(H) 35.7 - 48.1 fL LISA Comment:[address], [address] NRBC abs 0.00 0.00 - 0.01 K/cumm LISA Comment:[address], [address] Blood 11/25/2024 6:55 AM CDT 11/25/2024 7:48 AM CDT Kaleigh MEDRANO LAB BLOOD ORDERABLES Final Resu lt [facility] [address] [facility] Department [place] [address] * (ABNORMAL) Basic metabolic panel (11/25/2024 6:55 AM CDT) Sodium 130(L) 135 - 145 mmol/L LISA Comment:[address], [address] Potassium, pl 3.9 3.3 - 4.9 mmol/L LISA Comment:[address], [address] Chloride 91(L) 97 - 110 mmol/L LISA Comment:[address] [address] CO2 30 22 - 32 mmol/L LISA Comment:[address] [address] Anion gap 9 2 - 15 mmol/L LISA Comment:[address] [address] BUN 49(H) 6 - 25 mg/dL LISA Comment:[address] [address] Creatinine 0.93 0.60 - 1.10 mg/dL LISA Comment:[address] [address] Glucose 104 70 - 199 mg/dL LISA [...] Current interpretive data was last revised 2022. [facility], [address] [place] [address]., [address] Calcium 8.7 8.5 - 10.3 mg/dL LISA Comment:[address] [address] Blood 11/25/2024 6:55 AM CDT 11/25/2024 7:48 AM CDT us Kaleigh MEDRANO LAB BLOOD ORDERABLES Final Resu lt LISA ANDREW [address] [place] [address] Department [place] [address] * eGFR (11/18/2024 7:19 AM CDT) eGFR [...] Current interpretive data was last reviewed 2021. [address] [address] Blood 11/18/2024 7:19 AM CDT 11/18/2024 7:51 AM CDT us Kaleigh MEDRANO LAB BLOOD ORDERABLES Final Resu lt LISA ANDREW [address] [place] [address] Department [place] [address] * (ABNORMAL) CBC without differential (11/18/2024 7:19 AM CDT) WBC 5.26 3.80 - 9.90 K/cumm LISA ANDREW Comment:[address] [address] Hgb 8.2(L) 11.9 - 15.5 g/dL LISA ANDREW Comment:[address] [address] Hct 26.7(L) 35.6 - 45.5 % LISA ANDREW Comment:[address] [address] Plt 225 150 - 400 K/cumm LISA ANDREW Comment:[address] [address] MPV 10.6 9.1 - 12.3 fL LISA ANDREW Comment:[address] [address] RBC 2.63(L) 3.90 - 5.20 M/cumm LISA Comment:[address], [address] MCV 101.5(H) 81.3 - 96.4 fL LISA Comment:[address], [address] MCH 31.2 27.1 - 33.3 pg LISA Comment:[address], [address] MCHC 30.7(L) 32.3 - 35.7 g/dL LISA Comment:[address], [address] RDW CV 16.6(H) 11.1 - 14.9 % LISA Comment:[address], [address] RDW SD 61.9(H) 35.7 - 48.1 fL LISA Comment:[address], [address] NRBC abs 0.00 0.00 - 0.01 K/cumm LISA Comment:[address], [address] Blood 11/18/2024 7:19 AM CDT 11/18/2024 7:51 AM CDT us Kaleigh MEDRANO LAB BLOOD ORDERABLES Final Resu lt LISA [address] [facility] Department [place] [address] * (ABNORMAL) Basic metabolic panel (11/18/2024 7:19 AM CDT) Sodium 134(L) 135 - 145 mmol/L LISA ANDREW Comment:[address], [address] Potassium, pl 4.2 3.3 - 4.9 mmol/L LISA Comment:[address], [address] Chloride 94(L) 97 - 110 mmol/L LISA ANDREW Comment:[address] [address] CO2 31 22 - 32 mmol/L LISA Comment:[address] [address] Anion gap 9 2 - 15 mmol/L LISA Comment:[address] [address] BUN 44(H) 6 - 25 mg/dL LISA Comment:[address] [address] Creatinine 0.87 0.60 - 1.10 mg/dL LISA Comment:[address] [address] Glucose 107 70 - 199 mg/dL LISA [...] Current interpretive data was last revised 2022. [facility], [address] [place] [address]., [address] Calcium 9.0 8.5 - 10.3 mg/dL LISA Comment:[address] [address] Blood 11/18/2024 7:19 AM CDT 11/18/2024 7:51 AM CDT us Kaleigh MEDRANO LAB BLOOD ORDERABLES Final Resu lt KATHIDANIEL [address] Department [place] [address] * eGFR (11/13/2024 7:25 AM CDT) eGFR 72 >=60 mL/min/1. 73 m2 LISA Comment: Interpretive [...] Current interpretive data was last reviewed 2021. [address] [address] Blood 11/13/2024 7:25 AM CDT 11/13/2024 8:20 AM CDT us Emy Cardona MD LAB BLOOD ORDERABLES Final R esult LISA [address] Department [place] [address] * (ABNORMAL) CBC without differential (11/13/2024 7:25 AM CDT) WBC 4.96 3.80 - 9.90 K/cumm LISA ANDREW Comment:[address] [address] Hgb 8.1(L) 11.9 - 15.5 g/dL LISA ANDREW Comment:[address] [address] Hct 26.1(L) 35.6 - 45.5 % LISA ANDREW Comment:[address] [address] Plt 196 150 - 400 K/cumm LISA ANDREW Comment:[address] [address] MPV 11.5 9.1 - 12.3 fL LISA ANDREW Comment:[address] [address] RBC 2.54(L) 3.90 - 5.20 M/cumm LISA ANDREW Comment:[address] [address] MCV 102.8(H) 81.3 - 96.4 fL LISA ANDREW Comment:[address] [address] MCH 31.9 27.1 - 33.3 pg LISA ANDREW Comment:[address], [address] MCHC 31.0(L) 32.3 - 35.7 g/dL LISA ANDREW Comment:[address], [address] RDW CV 16.1(H) 11.1 - 14.9 % LISA ANDREW Comment:[address], [address] RDW SD 59.5(H) 35.7 - 48.1 fL LISA ANDREW Comment:[address], [address] NRBC abs 0.00 0.00 - 0.01 K/cumm LISA ANDREW Comment:[address], [address] Blood 11/13/2024 7:25 AM CDT 11/13/2024 8:20 AM CDT us Emy Cardona MD LAB BLOOD ORDERABLES Final R esult LISA [address] [facility] Department [place] [address] * (ABNORMAL) Comprehensive metabolic panel (11/13/2024 7:25 AM CDT) Sodium 132(L) 135 - 145 mmol/L LISA ANDREW Comment:[address], [address] Potassium, pl 3.9 3.3 - 4.9 mmol/L LISA ANDREW Comment:[address], [address] Chloride 94(L) 97 - 110 mmol/L LISA ANDREW Comment:[address] [address] CO2 35(H) 22 - 32 mmol/L [facility] Comment:[address] [address] Anion gap 3 2 - 15 mmol/L [facility] Comment:[address] [address] BUN 49(H) 6 - 25 mg/dL [facility] Comment:[address] [address] Creatinine 0.84 0.60 - 1.10 mg/dL [facility] Comment:[address] [address] Glucose 122 70 - 199 mg/dL [facility] Comment: Interpretive Data Fasting glucose >/= 126 [...] Current interpretive data was last revised 2022. [facility], [address] [place]., [address] Calcium 8.9 8.5 - 10.3 mg/dL [facility] Comment:[address] [address] Bilirubin, total 0.3 0.1 - 1.2 mg/dL [facility] Comment:[address] [address] Protein, pl 6.7 6.5 - 8.5 g/dL [facility] Comment:[address] [address] Albumin 2.6(L) 3.5 - 5.0 g/dL [facility] Comment:[address] [address] Alk phos 300(H) 40 - 130 Units/L [facility] Comment:[address] [address] ALT 46(H) 7 - 45 Units/L LISA Comment:[facility], [address] [place] [address]., [address] AST 59(H) 10 - 45 Units/L LISA Comment:[facility], [address] [place] [address]., [address] Blood 11/13/2024 7:25 AM CDT 11/13/2024 8:20 AM CDT Emy Cardona MD LAB BLOOD ORDERABLES Final R esult Performing Organization Address City/[facility] Co de Phone Number LISA [address] [place] [address] * eGFR (11/11/2024 5:29 AM CDT) eGFR [...] Current interpretive data was last reviewed 2021. [facility], [address] [place] [address]., [address] Blood 11/11/2024 5:29 AM CDT 11/11/2024 6:20 AM CDT Emy Cardona MD LAB BLOOD ORDERABLES Final R esult Performing Organization Address City/[facility]/ZIP Co de Phone Number [address] Department [place] [address] * Differential, auto (11/11/2024 5:29 AM CDT) Neutrophil abs 5.35 1.50 - 6.50 K/cumm CERNER Comment:[address] [address] Imm gran abs 0.04 0.00 - 0.10 K/cumm [facility] Comment:[address] [address] Lymphocyte abs 1.46 0.80 - 3.30 K/cumm [facility] Comment:[address] [address] Monocyte abs 0.76 0.20 - 0.80 K/cumm [facility] Comment:[address] [address] Eosinophil abs 0.08 0.00 - 0.50 K/cumm [facility] Comment:[address] [address] Basophil abs 0.03 0.00 - 0.10 K/cumm [facility] Comment:[address] [address] Neutrophil pct 69.4 % [facility] Comment: Interpretive Data Percent cell count reference ranges are not reported, since discordance with absolute values may lead to misinterpretation of CBC data. Current Interpretive Data was last revised on 2017. [address] [address] Imm gran pct 0.5 % [facility] Comment: Interpretive Data Percent cell count reference ranges are not reported, since discordance with absolute values may lead to misinterpretation of CBC data. Current Interpretive Data was last revised on 2017. [address] [address] Lymphocyte pct 18.9 % [facility] Comment: Interpretive Data Percent cell count reference ranges are not reported, since discordance with absolute values may lead to misinterpretation of CBC data. Current Interpretive Data was last revised on 2017. [address] [address] Monocyte pct 9.8 % CERNER Comment: Interpretive Data Percent cell count reference ranges are not reported, since discordance with absolute values may lead to misinterpretation of CBC data. Current Interpretive Data was last revised on 2017. [address] [address] Eosinophil pct 1.0 % LISA Comment: Interpretive Data Percent cell count reference ranges are not reported, since discordance with absolute values may lead to misinterpretation of CBC data. Current Interpretive Data was last revised on 2017. [address] [address] Basophil pct 0.4 % LISA Comment: Interpretive Data Percent cell count reference ranges are not reported, since discordance with absolute values may lead to misinterpretation of CBC data. Current Interpretive Data was last revised on 2017. [address] [address] Blood 11/11/2024 5:29 AM CDT 11/11/2024 6:18 AM CDT us Emy Cardona MD LAB BLOOD ORDERABLES Final R esult [address] Department [place] [address] * (ABNORMAL) CBC with auto differential (11/11/2024 5:29 AM CDT) WBC 7.72 3.80 - 9.90 K/cumm LISA Comment:[address] [address] Hgb 7.8(L) 11.9 - 15.5 g/dL LISA Comment:[address] [address] Hct 25.7(L) 35.6 - 45.5 % LISA Comment:[address] [address] Plt 228 150 - 400 K/cumm LISA Comment:[address] [address] MPV 11.2 9.1 - 12.3 fL LISA Comment:[address] [address] RBC 2.47(L) 3.90 - 5.20 M/cumm LISA Comment:[address] [address] MCV 104.0(H) 81.3 - 96.4 fL LISA Comment:[address] [address] MCH 31.6 27.1 - 33.3 pg LISA Comment:[address], [address] MCHC 30.4(L) 32.3 - 35.7 g/dL LISA Comment:[address], [address] RDW CV 16.4(H) 11.1 - 14.9 % LISA Comment:[address], [address] RDW SD 62.0(H) 35.7 - 48.1 fL LISA Comment:[address], [address] NRBC abs 0.00 0.00 - 0.01 K/cumm LISA Comment:[address], [address] Blood 11/11/2024 5:29 AM CDT 11/11/2024 6:18 AM CDT us Emy Cardona MD LAB BLOOD ORDERABLES Final R esult [facility] [address] [facility] Department [place] [address] * (ABNORMAL) Comprehensive metabolic panel (11/11/2024 5:29 AM CDT) Sodium 135 135 - 145 mmol/L LISA Comment:[address], [address] Potassium, pl 3.8 3.3 - 4.9 mmol/L LISA Comment:[address] [address] Chloride 92(L) 97 - 110 mmol/L LISA Comment:[address], [address] CO2 35(H) 22 - 32 mmol/L [facility] Comment:[address] [address] Anion gap 8 2 - 15 mmol/L [facility] Comment:[address] [address] BUN 44(H) 6 - 25 mg/dL [facility] Comment:[address] [address] Creatinine 0.86 0.60 - 1.10 mg/dL [facility] Comment:[address] [address] Glucose 129 70 - 199 mg/dL [facility] Comment: Interpretive Data Fasting glucose >/= 126 [...] Current interpretive data was last revised 2022. [facility], [address] [place]., [address] Calcium 9.1 8.5 - 10.3 mg/dL [facility] Comment:[address] [address] Bilirubin, total 0.3 0.1 - 1.2 mg/dL [facility] Comment:[address] [address] Protein, pl 6.9 6.5 - 8.5 g/dL [facility] Comment:[address] [address] Albumin 2.8(L) 3.5 - 5.0 g/dL [facility] Comment:[address] [address] Alk phos 284(H) 40 - 130 Units/L [facility] Comment:[address], [address] ALT 36 7 - 45 Units/L [facility] Comment:[address] [address] AST 48(H) 10 - 45 Units/L LISA Comment:[facility], [address] [place]., [address] Blood 11/11/2024 5:29 AM CDT 11/11/2024 6:20 AM CDT Emy Cardona MD LAB BLOOD ORDERABLES Final R esult Performing Organization Address City/[facility]/ZIP Co de Phone Number LISA [address] [place] [address] Department [place] [address] * Hemoglobin A1c (07/16/2019 7:34 AM ELECTRICAL LOGGING OPERATOR) Hemoglobin A1c % 5.0 4.0 - 5.6 % [facility] Comment: ADA 2016 GUIDELINES: Initial Diagnostic Criteria HbA1c Result: Interpretation: <5.7% Normal 5.7-6.4% At risk for diabetes mellitus >=6.5% Consistent with diabetes mellitus Diabetes monitoring Target value (ADA Recommended) <7% 07/16/2019 7:34 AM ELECTRICAL LOGGING OPERATOR 07/16/2019 7:40 AM ELECTRICAL LOGGING OPERATOR Narrative Resulting Agency Comment CLI Miguel Espinoza MD LAB BLOOD ORDERABLES Final Re sult Performing Organization Address [facility] Co de Phone Number [address] [address], [facility] [phone] * Dexa Axial Skeleton Bone Density 1 or 2 Site (06/08/2015 2:48 PM ELECTRICAL LOGGING OPERATOR) Anatomical Region Laterality Modality Body N/A Radiographic Keyla ging 06/08/2015 2:48 PM ELECTRICAL LOGGING OPERATOR Impressions 06/08/2015 4:50 PM ELECTRICAL LOGGING OPERATOR Bone mineral density in the lumbar spine, [...] PM [facility] [EOD] Narrative 06/08/2015 4:50 PM ELECTRICAL LOGGING OPERATOR HISTORY: 65 year old postmenopausal female with given history of primary hyperparathyroidism. Current Height: 62 inches Maximum Height: 63 inches Weight: 253 pounds RISK FACTORS: Chronic antacid use. Hyperparathyroidism. 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 Current Height: 62 inches Maximum Height: 63 inches Weight: 253 pounds RISK FACTORS: Chronic antacid use. Hyperparathyroidism. COMPARISON(S): None WATER MANAGER/MODEL: [employer] (S/N [id number]) FINDINGS: AP lumbar spine L1-L4 Total BMD is 0.918 g/gb3Z-wptwd is -1.2 Left Hip Total BMD is 0.771 g/mz7C-wlorh is -1.4 Neck BMD is 0.642 g/wb0E-ywqto is -1.9 Left forearm BMD in the radius 33% is 0.559 g/ex7A-wjaoz is -2.2 IMPRESSION: Bone mineral density in [...] Carlin M.D. TB:tb 04:46 PM 04:46 PM [facility] [EOD] Cirilo Pedersen MD IMG DXA PROCEDURES Final Resul t from Last 3 Months or Most Recently Relevant to Health Maintenance Insurance [employer] MEDICARE [place] [id number] [facility] MEDICARE ADVANTAGE [facility] MEDICARE [employer] MEDICARE Advance Directives For more information, please contact: [phone] Documents on File Type Date Recorded Patient Agile Scrum Master Expl anation Power of Cook Helper Vegetable ADVANCE DIRECTIVE 10/18/2024 9:27 AM POLST - Phys Order for PT Preferences ADVANCE DIRECTIVE 09/04/2019 1:16 PM Power of Cook Helper Vegetable-Medical ADVANCE DIRECTIVE 07/16/2019 12:00 AM POW ER OF QUALITY ASSURANCE TESTER MEDICAL * Full Code (Latest Code Status [...] 8:52 PM 12/15/2021 9:07 PM Care Teams Accelerator Systems Director Relationship Specialty Start Date End Date Ellen Rowley MD [address] [place] [address] PCP - General Family Medicine 02/09/22
[2025-02-10 11:22] LABS: Alanine Aminotransferase 31 U/L (6-35); Albumin Level 3.9 g/dL (3.5-5.1); Alkaline Phosphatase 70 U/L (38-126); Anion Gap 10 mmol/L (4-12); Aspartate Amino Transferase 49 U/L (14-36); Bilirubin,Total 0.5 mg/dL (0.2-1.3); Blood Urea Nitrogen 49 mg/dL (7-17); Calcium 9.6 mg/dL (8.4-10.2); Carbon Dioxide 29 mmol/L (22-30); Chloride 96 mmol/L (98-107); Estimated Glomerular Filt Rate 39; Glucose 108 mg/dL (65-110); Potassium 4.9 mmol/L (3.4-5.0); Sodium 135 mmol/L (137-145); Total Protein 8.5 g/dL (6.3-8.2)
[2025-02-10 11:54] LABS: Thyroid Stimulating Hormone < 0.015 uIU/mL (0.465-4.680)
[2025-02-10 11:59] LABS: Free T4 Free Thyroxine 2.94 ng/dL (0.78-2.19)
== END 2025-02-10 10:08 | disposition home or self-care (01) ==
LOC: ANHLAB 10:11
PROVIDERS: Visit Provider Internal Medicine
DX: E89.0 Postprocedural hypothyroidism (principal); C73 Malignant neoplasm of thyroid gland; E11.8 Type 2 diabetes mellitus with unspecified complications; M81.0 Age-related osteoporosis without current pathological fracture; E21.0 Primary hyperparathyroidism; Z78.9 Other specified health status
CPT/HCPCS: 36415; 80053; 84439; 84443

== ENCOUNTER 2025-02-26 09:49 | Outpatient (CLI) | payer MEDICARE, SELFPAY ==
--- OUTSIDE RECORDS SUMMARY | 2025-02-26 10:17 | XMS_ITS | Clinical Summary ---
Author Organization [facility] Address [address] [place] [address] Care Team Providers Care Corporate Travel Expert Name Role Phone Ellen Rowely MD Primary Care Provider [phone] Source Comments [facility],non-[facility] behavioral [facility] Affiliates and Associated Physician Practices is amultiple site organization consisting of ambulatory clinics and hospital sitesin [place], [place], [place] and [place]. This disclosure is being madepursuant to the Care Everywhere program and may not contain all information available regarding this patient. Last updated 18.[facility] Allergies Active Allergy Reactions Criticality Noted Date [...] daily 60 packet 2 09/27/2024 12:10 PM MACHINE SKIVER 09/27/19 25 Active levothyroxine (Synthroid) 112 MCG tablet 1 (one) tablet by Enteral Tube route once daily 30 tablet 09/27/2024 12:10 PM MACHINE SKIVER 09/27/19 25 Active Additional Information Patient not [...] morning and evening meal Active nystatin (Mycostatin) 134278 UNIT/GM powder Apply to affected area 3 [...] Breeze/Prosource High Protein Gelatin 01/17/20 25 025 acetaminophen (Tylenol) 325 MG tablet Take 2 (two) tablets by mouth every 6 hours as needed for Fever or Pain Maximum allowable Acetaminophen amount = 4 Grams (4000 mg) / 24 hours. 90 tablet 01/18/20 25 025 polyethylene glycol 3350 (MiraLax) 17 g packet [...] Description 02/07/2025 9:00 AM CDT Office Visit [facility] [address] [place] [address] Julieta Johnston, SHIPPING SUPERVISOR-RADIO SCRIPT WRITER Achalasia (Primary Dx) 01/15/2025 11:40 AM CDT Anesthesia Event [facility] PERIOPERATIVE [address] [place] [address] Yahir Hameed MD 01/15/2025 11:14 AM CDT - 01/15/2025 2:14 PM CDT Surgery [facility] [address] [place] [address] Roland Miller MD ROBOTIC ASSISTED ESOPHAGOMYOTOMY (HELLER) 01/15/2025 8:37 AM CDT - 01/17/2025 3:29 PM CDT Hospital Encounter 1E Surg - [address] [address] Roland Miller MD Cardiothoracic Surgery Discharge Disposition: Home or Self Care 01/15/2025 Travel 01/09/2025 7:31 AM CDT - 01/09/2025 11:59 PM CDT [facility] [address] [place] [address] Roland Miller MD Discharge Disposition: Home or Self Care 01/09/2025 Travel 01/03/2025 10:00 AM CDT Office Visit [facility] [address] [place] [address] Roland Miller MD Achalasia (Primary Dx) 12/31/2024 10:27 AM CDT - 12/31/2024 11:59 PM CDT Hospital Encounter [facility] - Outside Imaging Discharge Disposition: Home or Self Care 12/31/2024 10:27 AM CDT - 12/31/2024 11:59 PM CDT Hospital Encounter [facility] - Outside Imaging Discharge Disposition: Home or Self Care 12/06/2024 1:00 PM CDT Office Visit [facility] [address] [place] [address] Roland Miller MD Achalasia (Primary Dx); Moderate protein-calorie malnutrition (HCC) 11/29/2024 1:00 PM CDT - 11/29/2024 2:30 PM CDT Surgery [facility] ENDOSCOPY [address] [place] [address] Procedure, Nursing G_I GASTRIC MOTILITY STUDY 11/29/2024 12:13 PM CDT - 11/29/2024 1:56 PM CDT Hospital Encounter [facility] CYNTHIA OP [address] [place] [address] Xavi Weathers MD Surgery General Discharge Disposition: [...] and heating? Not hard at all 01/16/2025 [facility] [place] of Occupat ional Health - Occupational Stress [...] money to buy more. Never true 01/17/20 Within the past 12 months, t he [...] any time in the past 12 m [facility], were you homeless or living in a detention (including now)? No 01/16/2025 Comments Unknown Sex and Gender Information Value Date Recorded Sex Assigned at Not on file Legal Sex Female 10:45 PM MACHINE SKIVER Gender Identity Not on file Sexual Orientation Not on file Last Filed Vital Signs Vital Sign Reading Time Taken Comments Blood Pressure 115/75 02/07/2025 8:55 AM CDT Pulse 76 02/07/2025 8:55 AM CDT Temperature 36.6 C (97.9 F) 01/17/2025 8:23 AM CDT Respiratory Rate 16 01/17/2025 8:23 AM CDT Oxygen Saturation 89% 02/07/2025 8:55 AM CDT Inhaled Oxygen Concentration 21% 06/2025 11:37 AM MACHINE SKIVER Weight 58.9 kg (129 lb 12.8 oz) [...] TUBE NOTE Routine 01/15/2025 12:23 PM CDT ME ED EGD FLEX TRANSORAL DX 01/15/2025 11:19 AM CDT Achalasia Case Notes 01/15/25 2nd case 150 minutes Stop ELIQUIS 3 days prior to procedure Special Needs NEEDS STOCK CHECKERER, DAVINCI- NO REP, O.R ENDO CART / ## ATTN. ANESTHESIA: PATIENT HAS A [employer] PACEMAKER PER PRE-TESTING (ELLEN)--01/09 KW ## ME LAP MYOTOMY, HELLER 01/15/2025 11:19 AM CDT Achalasia Case Notes 01/15/25 2nd case 150 minutes Stop ELIQUIS 3 days prior to procedure Special Needs NEEDS STOCK CHECKERER, DAVINCI- NO REP, O.R ENDO CART / [...] ESOPHAGEAL Routine 11/29/2024 1:56 PM CDT Achalasia ME ESOPHAGUS MOTILITY STUDY 11/29/2024 1:16 PM CDT [facility] HEMOGLOBIN A1C Routine 09/10/2024 2:04 AM MACHINE SKIVER from Last 3 Months or Most Recently [...] - 99 mg/dL 01/17/2025 1:17 PM CDT [facility] Specimen Type Arterial/C apillary 01/17/2025 1:17 PM CDT [facility] Blood BLOOD SPECIMEN / Unknown 01/17/2025 1:07 PM CDT 01/17/2025 1:17 PM CDT Roland Miller MD LAB - POINT OF CARE ORDERABLES Final Result [facility] [address] [place] [address] * (ABNORMAL) CBC W AUTO DIFFERENTIAL (01/17/2025 3:19 AM CDT) Only the most recent of3 resultswithin the time period is included. [facility] WBC 3.8(L) 4.0 - 10.7 x10E9/L 01/17/2025 4:[address] [facility] RBC Count 2.24(L) 3.90 - 5.20 x10E12/L 01/17/2025 4:[address] [facility] Hemoglobin 7.5(L) 11.9 - 15.8 g/dL 01/17/2025 4:[address] [facility] Hematocrit 23.2(L) 34.8 - 46.1 % 01/17/2025 4:[address] [facility] MCV 103.6(H) 80.0 - 98.0 fL 01/17/2025 4:[address] [facility] MCH 33.5 26.7 - 33.6 pg 01/17/2025 4:[address] [facility] MCHC 32.3 31.7 - 36.3 g/dL 01/17/2025 4:[address] [facility] RDW-CV 15.1(H) 11.3 - 14.8 % 01/17/2025 4:[address] [facility] Platelet Count 156 150 - 420 x10E9/L 01/17/2025 4:[address] [facility] MPV 11.6(H) 7.8 - 11.4 fL 01/17/2025 4:00 AM CDT [facility] Neutrophil % 49.0 41.0 - 74.0 % 01/17/2025 4:00 AM CDT [facility] Lymphocyte % 37.3 17.0 - 47.0 % 01/17/2025 4:00 AM CDT [facility] Monocyte % 10.8 3.0 - 11.0 % 01/17/2025 4:00 AM CDT [facility] Eosinophil % 2.1 0.0 - 7.0 % 01/17/2025 4:00 AM T [facility] Basophil % 0.5 0.0 - 1.6 % 01/17/2025 4:00 AM CDT [facility] Immature Granulocytes % 0.3 0.0 - 1.0 % 01/17/2025 4:00 AM CDT [facility] Neutrophil Absolute 1.87 1.60 - 7.50 x10E9/L 01/17/2025 4:00 AM CDT [facility] Lymphocyte Absolute 1.42 1.00 - 4.40 x10E9/L 01/17/2025 4:00 AM CDT [facility] Monocyte Absolute 0.41 0.15 - 1.00 x10E9/L 01/17/2025 4:00 AM CDT [facility] Eosinophil Absolute 0.08 0.00 - 0.60 x10E9/L 01/17/2025 4:00 AM CDT [facility] Basophil Absolute 0.02 0.00 - 0.13 x10E9/L 01/17/2025 4:[address] [facility] Blood BLOOD SPECIMEN / Unknown Lab Venipuncture / Unknown 01/17/2025 3:19 AM CDT 01/17/2025 3:53 AM CDT us Roland Miller MD LAB - HEMATOLOGY ORDERABLES Fi nal Result [facility] [address] [place], [place] [id number] * (ABNORMAL) BASIC METABOLIC PANEL (CALCIUM TOTAL) (01/17/2025 3:19 AM CDT) Only the most recent of2 resultswithin the time period is included. Glucose 103(H) 70 - 99 mg/dL 01/17/2025 4:22 AM CDT [facility] Sodium 139 136 - 145 mmol/L [facility]/17[facility] Potassium 4.6 3.5 - 5.1 mmol/L 01/17/2025 4:[address] [facility] Chloride 103 98 - 107 mmol/L 01/17/2025 4:22 AM T [facility] CO2 32(H) 22 - 29 mmol/L 01/17/2025 4:[address] [facility] Calcium 8.6 8.4 - 10.4 mg/dL 01/17/2025 4:[address] [facility] Anion Gap 4(L) 6 - 16 mmol/L 01/17/2025 4:[address] [facility] BUN 48(H) 7 - 26 mg/dL 01/17/2025 4:[address] [facility] Creatinine 1.01 0.57 - 1.11 mg/dL 01/17/2025 4:[address] [facility] eGFR by CKD-EPI 58(L) >=90 mL/min/1.7 3 m2 01/17/2025 4:[address] [facility] Blood BLOOD SPECIMEN / Unknown Lab Venipuncture / Unknown 01/17/2025 3:19 AM CDT 01/17/2025 3:53 AM CDT us Roland Miller MD LAB - CHEMISTRY ORDERABLES Fin al Result Performing Organization Address City/State/[facility] Co de Phone Number [facility] [address] [place] [address] * PHOSPHORUS BLOOD (01/17/2025 3:19 AM CDT) Only the most recent of2 resultswithin the time period is included. Phosphorus 3.5 2.5 - 4.5 mg/dL 01/17/2025 4:[address] [facility] Blood BLOOD SPECIMEN / Unknown Lab Venipuncture / Unknown 01/17/2025 3:19 AM CDT 01/17/2025 3:53 AM CDT Roland Miller MD LAB - CHEMISTRY ORDERABLES Fin al Result Performing Organization Address City/[facility]/ZIP Co de Phone Number [facility] [address] [place] [address] * MAGNESIUM BLOOD (01/17/2025 3:19 AM CDT) Only the most recent of2 resultswithin the time period is included. Magnesium 2.0 1.6 - 2.6 mg/dL 01/17/2025 4:22 AM CDT [facility] Blood BLOOD SPECIMEN / Unknown Lab Venipuncture / Unknown 01/17/2025 3:19 AM CDT 01/17/2025 3:53 AM CDT Roland Miller MD LAB - CHEMISTRY ORDERABLES Fin al Result Performing Organization Address [facility] de Phone Number [facility] [address] [place] [address] * FL Esophagram (01/16/2025 9:31 AM CDT) [...] Devon Meadows MD on 01/16/2025 10:19 AM Roland Miller MD FLUOROSCOPY ORDERABLES Final R esult * ETT LINE PERFORMABLE (01/15/2025 12:23 PM CDT) Narrative Tawanna Clay APRN-CRNA - 01/15/2025 12:23 PM CDT Tawanna Clay APRN-CRNA 01/15/2025 12:25 PM Endotracheal Tube Placement: Patient Location: OR. Intubation Event Date/Time: 01/15/2025 11:54 AM Procedure: intubation (64232) Procedure Section: Sedation: under general anesthesia. Indications [...] procedure. us Yahir Hameed MD GENERAL ANESTHESIA ORDE SEVERIANO Final Result * TYPE + SCREEN PANEL (01/15/2025 9:20 AM CDT) Only the most recent of2 resultswithin the time period is included. Pathologist [facility] ABO Rh A POS 01/15/2025 10:13 AM CDT [facility] BLOOD BANK LAB Comment:History checked. Antibody Screen NEG 10:13 AM CDT [facility] LAB Blood Bank BLOOD SPECIMEN / Unknown Venipuncture / Unknown 01/15/2025 9:20 AM CDT 01/15/2025 9:23 AM CDT us Roland Miller MD LAB - BLOOD BANK ORDERABLES Fi nal Result [facility] BLOOD BANK LAB [address] [phone] * EKG 12-Lead (01/09/2025 7:56 AM CDT) Ventricular Rate 105 BPM [facility] MUSE Atrial Rate 210 BPM [facility] MUSE QRS Duration ms 102 ms [facility] MUSE Q-T Interval ms 312 ms [facility] MUSE QTC Calculation (Bezet) 412 ms [facility] MUSE Calculated R Barrow -46 degrees [facility] MUSE Calculated T Barrow 7 degrees [facility] MUSE Interpretation EKG ATRIAL FLUTTER WITH 2:1 A-V CONDUCTION LEFT ANTERIOR FASCICULAR BLOCK MINIMAL VOLTAGE CRITERIA FOR LVH, MAY BE NORMAL VARIANT ( [place] product ) NONSPECIFIC ST ABNORMALITY ABNORMAL ECG WHEN COMPARED WITH ECG OF 18-SEP-2024 09:49, ATRIAL FLUTTER HAS REPLACED SINUS RHYTHM NONSPECIFIC T WAVE ABNORMALITY, IMPROVED IN INFERIOR LEADS T WAVE INVERSION NO LONGER EVIDENT IN LATERAL LEADS QT HAS SHORTENED Confirmed by MD STEPHANIE, ALEJANDRA ([id number]) on 01/09/2025 5:04:27 PM [facility] MUSE 01/09/2025 7:56 AM CDT 01/09/2025 5:04 PM CDT us Roland Miller MD ECG ORDERABLES Edited Result - Final [facility] MUSE * URINALYSIS REFLEX MICROSCOPIC REFLEX CULTURE (01/09/2025 7:42 AM CDT) Color UA Yellow Yellow, Straw 01/09/2025 8:07 AM CDT [facility] Clarity UA Clear Clear 01/09/2025 8:07 AM CDT [facility] Glucose UA Normal Normal 01/09/2025 8:07 AM CDT [facility] Bilirubin UA Negative Negative 01/09/2025 8:07 AM CDT [facility] Ketone UA Negative Negative 01/09/2025 8:07 AM CDT [facility] Specific [place] UA 1.013 1.005 - 1.030 01/09/2025 8:07 AM CDT [facility] Blood UA Negative Negative 01/09/2025 8:07 AM T [facility] pH UA 6.5 5.0 - 8.0 01/09/2025 8:07 AM CDT [facility] Protein UA Negative Negative 01/09/2025 8:07 AM CDT [facility] Urobilinogen UA Normal Normal mg/dL 01/09/2025 8:07 AM CDT [facility] Nitrite UA Negative Negative 01/09/2025 8:07 AM CDT [facility] Leukocyte Esterase UA Negative Negative 01/09/2025 8:07 AM CDT [facility] Reflex Status Culture not indicated 01/09/2025 8:07 AM CDT [facility] Urine Microscopy Urine microscopy not indicated 01/09/2025 8:07 AM CDT [facility] Urine URINE SPECIMEN OBTAINED BY CLEAN CATCH PROCEDURE / Unknown Collection / Unknown 01/09/2025 7:42 AM CDT 01/09/2025 7:59 AM CDT [facility] - 01/09/2025 8:07 AM CDT Roland Miller MD LAB - URINALYSIS ORDERABLES Fi nal Result Performing Organization Address [facility] Co de Phone Number [facility] [address] [place] [phone] * PTT (01/09/2025 7:42 AM CDT) PTT 35.5 23.0 - 38.4 sec 01/09/2025 8:13 AM CDT [facility] Blood BLOOD SPECIMEN / Unknown Venipuncture / Unknown 01/09/2025 7:42 AM CDT 01/09/2025 7:59 AM CDT [facility] - 01/09/2025 8:13 AM CDT Heparin Therapeutic Range for PTT: 69.0 - 110.0 seconds. Roland Miller MD LAB - COAGULATION ORDERABLES F inal Result Performing Organization Address [facility] de Phone Number [facility] [address] [place] [phone] * (ABNORMAL) PT-INR (01/09/2025 7:42 AM CDT) PT 15.7(H) 12.1 - 14.8 sec 01/09/2025 8:13 AM CDT [facility] INR 1.3(H) 0.9 - 1.1 01/09/2025 8:13 AM CDT [facility] Blood BLOOD SPECIMEN / Unknown Venipuncture / Unknown 01/09/2025 7:42 AM CDT 01/09/2025 7:59 AM CDT [facility] - 01/09/2025 8:13 AM CDT Conventional Warfarin Anticoagulant Therapy: INR Reference Range: 2.0-3.0 Intensive Warfarin Anticoagulant Therapy: INR Reference Range: 2.5-3.5 us Roland Miller MD LAB - COAGULATION ORDERABLES F inal Result [facility] [address] [place] [address] * (ABNORMAL) COMPREHENSIVE METABOLIC PANEL (01/09/2025 7:42 AM CDT) Glucose 112(H) 70 - 99 mg/dL 01/09/2025 8:25 AM CDT [facility] Sodium 135(L) 136 - 145 mmol/L 01/09/2025 8:25 AM CDT [facility] Potassium 4.0 3.5 - 5.1 mmol/L 01/09/2025 8:25 AM CDT [facility] Chloride 95(L) 98 - 107 mmol/L 01/09/2025 8:25 AM CDT [facility] CO2 30(H) 22 - 29 mmol/L 01/09/2025 8:25 AM CDT [facility] Calcium 10.2 8.4 - 10.4 mg/dL 01/09/2025 8:25 AM CDT [facility] Anion Gap 10 6 - 16 mmol/L 01/09/2025 8:25 AM CDT [facility] BUN 82(H) 7 - 26 mg/dL 01/09/2025 8:25 AM CDT [facility] Creatinine 1.15(H) 0.57 - 1.11 mg/dL 01/09/2025 8:25 AM CDT [facility] Alkaline Phosphatase 148 40 - 150 U/L 01/09/2025 8:25 AM CDT [facility] ALT 71(H) 6 - 57 U/L 01/09/2025 8:25 AM CDT [facility] AST 58(H) 10 - 48 U/L 01/09/2025 8:25 AM CDT [facility] Protein Total 8.4(H) 6.4 - 8.3 gm/dL 01/09/2025 8:25 AM CDT [facility] Albumin 3.6 3.1 - 4.5 gm/dL 01/09/2025 8:25 AM CDT [facility] Bilirubin Total 0.5 0.2 - 1.2 mg/dL 01/09/2025 8:25 AM CDT [facility] eGFR by CKD-EPI 49(L) >=90 mL/min/1.7 3 m2 01/09/2025 8:25 AM CDT [facility] Blood BLOOD SPECIMEN / Unknown Venipuncture / Unknown 01/09/2025 7:42 AM CDT 01/09/2025 8:00 AM CDT us Roland Miller MD LAB - CHEMISTRY ORDERABLES Fin al Result Performing Organization Address [facility] Co de Phone Number [facility] [address] [place] [address] * Motility Study, Esophageal (11/29/2024 1:56 PM CDT) Narrative [facility] - 11/29/2024 1:56 PM CDT Xavi Weathers MD 12/03/2024 11:33 AM GI Physiology Note Ms. Najera attended [facility] for high resolution esophageal manometry. Please see media tab for full report and interpretation. Please note that the physical written reports are scanned to [employer] and can take 24-48 hours to be [...] MD GI PROCEDURE ORDERABLES Samantha l Result Performing Organization Address City/[facility]/ZIP Co de Phone Number [facility] * HEMOGLOBIN A1C (09/10/2024 2:04 AM [facility]) Hemoglobin A1c 4.9 <=5.6 % 09/10/2024 8:53 AM [facility] Estimated Average Glucose 94 mg/dL 09/10/2024 8:53 AM [facility] Comment: HbA1c Interpretation: Normal : < 5.7% [...] HbA1c target range of 7.0-7.5% (Reference: Harsh Stanley et al. JAMDA. 2012) The Sebia assay for the measurement of HbA1c is a National Glycohemoglobin Standardization Program (NGSP) certified method. Blood BLOOD SPECIMEN / Unknown Venipuncture / Unknown 09/10/2024 2:04 AM MACHINE SKIVER 09/10/2024 2:14 AM MACHINE SKIVER us Jerel Ceja MD LAB - CHEMISTRY ORDERABLES F inal Result [facility] [address] [place] [address], [facility] [phone] from Last 3 Months or Most Recently Relevant to Health Maintenance Insurance [employer] MEDICARE ADV Advance Directives * Full Code (Latest Code Status on File) Date Activated Date Inactivated Comments 01/15/2025 2:50 PM 01/17/2025 4:34 PM * Full Code Date Activated Date Inactivated Comments 09/09/2024 3:24 PM 09/27/2024 3:43 PM Care Teams Corporate Travel Expert Relationship Specialty Start Date End Date Ellen Rowley MD [address] [place] [address] PCP - General Family Medicine 07/31/24
--- OUTSIDE RECORDS SUMMARY | 2025-02-26 10:17 | XMS_ITS | Patient Health Record ---
Author Organization [facility] Address [address] [place], [place] [id number] Care Team Providers Care Kiln Firer Name Role Phone DIXIE STEWART Unavailable [phone] Ellen Rowley Unavailable Unavailable Allergies Allergen (clinical drug ingredient) Drug/Non Drug Allergy documented on EMR Reaction Allergy Type Onset Date Status cefadroxil Duricef (uncoded) Unknown Allergy 12/30/2014 active Reason For Referral No Information Medications Medication SIG (Take, Route, Frequency, Duration) Notes Start Date End Date Status Lisinopril 40 MG Oral Tablet ORAL lisinopril 40 MG Oral TabletOriginal Medicationlisinopril 40 MG Oral Tablet *Reorder from [facility] for eRx and Interaction Alerts* 12/30/2014 Active atorvastatin 10 MG Oral Tablet ORAL atorvastatin 10 MG Oral TabletOriginal Medicationatorvastatin 10 MG Oral Tablet *Reorder from [facility] for eRx and Interaction Alerts* 12/30/2014 Active 24 HR glipizide 10 MG Extended Release Oral Tablet ORAL 24 HR glipizide 10 MG Extended Release Oral TabletOriginal [id number] HR glipizide 10 MG Extended Release Oral Tablet *Reorder from [facility] for eRx and Interaction Alerts* 12/30/2014 Active Carvedilol 6.25 MG Oral Tablet ORAL carvedilol 6.25 MG Oral TabletOriginal Medicationcarvedilol 6.25 MG Oral Tablet *Reorder from [facility] for eRx and Interaction Alerts* 12/30/2014 Active timolol 2.5 MG/ML Ophthalmic Solution timolol 2.5 MG/ML Ophthalmic SolutionOriginal Medicationtimolol 2.5 MG/ML Ophthalmic Solution *Reorder from [facility] for eRx and Interaction Alerts* 12/30/2014 Active metformin hydrochloride 500 MG Oral Tablet ORAL metformin hydrochloride 500 MG Oral TabletOriginal Medicationmetformin hydrochloride 500 MG Oral Tablet *Reorder from [facility] for eRx and Interaction Alerts* 12/30/2014 Active latanoprost 0.05 MG/ML Ophthalmic Solution latanoprost 0.05 MG/ML Ophthalmic SolutionOriginal Medicationlatanoprost 0.05 MG/ML Ophthalmic Solution *Reorder from [facility] for eRx and Interaction Alerts* 12/30/2014 Active esomeprazole 40 MG Delayed Release Oral Capsule [Nexium] ORAL esomeprazole 40 MG Delayed Release Oral Capsule [Nexium]Original Medicationesomeprazole 40 MG Delayed Release Oral Capsule [Nexium] *Reorder from [facility] for eRx and Interaction Alerts* 12/30/2014 Active Immunizations Vaccine Route Administration Date Status Comme nts Influenza, high dose seasonal Unknown 04/10/2023 Admini stered Influenza, high dose seasonal Unknown 08/14/2023 Refuse d Influenza, high-dose seasona l, quadrivalent, preservative free >65 yrs Unknown 04/22/2016 Administered Influenza, high-dose seasona l, quadrivalent, preservative free >65 yrs Unknown 06/24/2017 Administered Influenza, high-dose seasona l, quadrivalent, preservative free >65 yrs Unknown 05/11/2018 Administered Influenza, high-dose seasona l, quadrivalent, preservative free >65 yrs Unknown 06/01/2019 Administered Influenza, high-dose seasona l, quadrivalent, preservative free >65 yrs Unknown 05/16/2020 Administered Influenza, high-dose seasona l, quadrivalent, preservative free >65 yrs Unknown 05/10/2021 Administered Influenza, high-dose seasona l, quadrivalent, preservative free >65 yrs Unknown 05/08/2022 Administered Influenza, high-dose seasona l, quadrivalent, preservative free >65 yrs Unknown 04/18/2023 Administered Influenza, high-dose seasona l, quadrivalent, preservative free >65 yrs Unknown 05/20/2024 Administered Influenza, unspecified formulation Unknown 06/22/2013 A dministered Influenza, unspecified formulation Unknown 08/02/2014 A dministered Influenza, unspecified formulation Unknown 06/05/2015 A dministered Influenza, unspecified formulation Unknown 05/31/2019 A dministered Influenza, unspecified formulation Unknown 05/16/2020 A dministered Influenza, unspecified formulation Unknown 05/10/2021 A dministered Influenza, unspecified formulation Unknown 04/18/2023 A dministered Pfizer-[employer]iontech Covid-19 Vac cine 1st dose Unknown 09/18/2020 Administered Pfizer-[employer]ion[employer] Covid-19 Vac cine 1st dose Unknown 10/10/2020 Administered Pneumococcal conjugate PCV 13 Unknown 08/14/2023 Refuse d Pneumococcal polysaccharide PPV23 Unknown 04/01/2020 Ad ministered Pneumococcal polysaccharide PPV23 Unknown 04/01/2020 Ad ministered Vital Signs Height-cm 160.02 cm 01/06/2025 Weight-kg 68.04 kg 01/06/2025 Height 63.00 in 01/06/2025 Weight 150 lbs 01/06/2025 BMI 26.57 kg/m2 01/06/2025 Encounters Encounter Location Date Provider Diagnosis [facility] [address] [place], [place] [id number] 08/26/2024 DIXIE ASHLEYBURG Fungal infection of nail B35.1 ; Pain in right toe(s) M79.674 ; Pain in left toe(s) M79.675 and Unspecified atherosclerosis of [place] arteries of extremities, bilateral legs I70.203 [facility] [address] [place] [id number] 01/06/2025 DIXIE WHITTENBURG Fungal infection of nail B35.1 ; Pain in right toe(s) M79.674 ; Pain in left toe(s) M79.675 and Unspecified atherosclerosis of [place] arteries of extremities, bilateral legs I70.203 [facility] [address] [place], [place] [id number] 04/22/2024 DIXIE SAHILTENBURG Fungal infection of nail B35.1 ; Pain in right toe(s) M79.674 ; Pain in left toe(s) M79.675 and Unspecified atherosclerosis of [place] arteries of extremities, bilateral legs I70.203 [facility] [address] [place], [place] [id number] 06/24/2024 DIXIE STEWART Fungal infection of nail B35.1 ; Pain in right toe(s) M79.674 ; Pain in left toe(s) M79.675 and Unspecified atherosclerosis of [place] arteries of extremities, bilateral legs I70.203 Assessments Encounter Date Diagnosis (ICD Code) Assessment Notes Treatment Notes Treatment Clinical Notes Section Notes 04/22/2024 Fungal infection of nail (ICD-10 - B35.1) 06/24/2024 Fungal infection of nail (ICD-10 - B35.1) 08/26/2024 Fungal infection of nail (ICD-10 - B35.1) 01/06/2025 Fungal infection of nail (ICD-10 - B35.1) 01/06/2025 Pain in right toe(s) (ICD-10 - M79.674) 08/26/2024 Pain in right toe(s) (ICD-10 - M79.674) 06/24/2024 Pain in right toe(s) (ICD-10 - M79.674) 04/22/2024 Pain in right toe(s) (ICD-10 - M79.674) 04/22/2024 Pain in left toe(s) (ICD-10 - M79.675) 06/24/2024 Pain in left toe(s) (ICD-10 - M79.675) 08/26/2024 Pain in left toe(s) (ICD-10 - M79.675) 01/06/2025 Pain in left toe(s) (ICD-10 - M79.675) 01/06/2025 Unspecified atherosclerosis of [place] arteries of extremities, bilateral legs (ICD-10 - I70.203) 08/26/2024 Unspecified atherosclerosis of [place] arteries of extremities, bilateral legs (ICD-10 - I70.203) 06/24/2024 Unspecified atherosclerosis of [place] arteries of extremities, bilateral legs (ICD-10 - I70.203) 04/22/2024 Unspecified atherosclerosis of [place] arteries of extremities, bilateral legs (ICD-10 - I70.203) 08/26/2024 Other Nails 1-5 Bilateral were debrided extensively with nail nippers and emery board, reducing length and girth to pink healthy tissue with any subungual debris and necrotic tissue removed 01/06/2025 Other Nails 1-5 Bilateral were debrided extensively with nail nippers and emery board, reducing length and girth to pink healthy tissue with any subungual debris and necrotic tissue removed 04/22/2024 Other Nails 1-5 Bilateral were debrided extensively with nail nippers and emery board, reducing length and girth to pink healthy tissue with any subungual debris and necrotic tissue removed 06/24/2024 Other Nails 1-5 Bilateral were debrided extensively with nail nippers and emery board, reducing length and girth to pink healthy tissue with any subungual debris and necrotic tissue removed Plan Of Treatment Next Appt Details Provider Name:DIXIE GIBBS, 03/10/2025 11:40:00 AM, [address], [place], [place], [id number], Insurance Providers Payer Name Payer Address Payer Phone Subscriber Number Group Number Insured Name Patient Relationship to Insured Coverage Start Date Coverage End Date [employer] [address] [place] [address] [id number] JAYSON LOPEZ Self - patient is the insured Medical (General) History Medical History History ICD Code Diabetic
--- OUTSIDE RECORDS SUMMARY | 2025-02-26 10:17 | XMS_ITS | Clinical Summary ---
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 Gender Identity Not on file Sexual Orientation Not on file Plan of Treatment Health Maintenance Due Date Last Done Comments Hepatitis C Virus (HCV) Screening 1950 TdaP Immunization 1950 Zoster Immunization (1 of 2) 1998 Pneumococcal Immunization (50+ years) (2 of 2 - PCV) 04/01/2021 04/01/2020 Respiratory Syncytial Virus (RSV) Immunization (Adult) (1 - 1-dose 75+ series) 2023 SARS-COV-2 Immunization ( season) 2024 Influenza Immunization (#1) 03/31/202504/30, 06/01/2019, 05/11/2018, Additional history exists Pneumococcal Immunization Combined Discontinued 04/01/2020 Hepatitis B Immunization Aged Out No longer eligible based on patient's age to complete this topic Human Papillomavirus (HPV) Immunization Aged Out No longer eligible based on patient's age to complete this topic Meningococcal Immunization (ACWY) Aged Out No longer eligible based on patient's age to complete this topic Rotavirus Immunization Aged Out No lo nger eligible based on patient's age to complete this topic
--- OUTSIDE RECORDS SUMMARY | 2025-02-26 10:17 | XMS_ITS ---
Author Organization [facility] Address [address] [place], [place] [id number] Care Team Providers Care Staff Climate Scientist Name Role Phone DIXIE RAMIREZ Unavailable [phone] Ellen Rowley Unavailable Unavailable Allergies Allergen (clinical drug ingredient) Drug/Non Drug Allergy documented on EMR Reaction Allergy Type Onset Date Status cefadroxil Duricef (uncoded) Unknown Allergy 12/30/2014 active REASON FOR VISIT *General care Medications Medication SIG (Take, Route, Frequency, Duration) Notes Start Date End Date Status latanoprost 0.05 MG/ML Ophthalmic Solution latanoprost 0.05 MG/ML Ophthalmic SolutionOriginal Medicationlatanoprost 0.05 MG/ML Ophthalmic Solution *Reorder from [facility] for eRx and Interaction Alerts* 12/30/2014 Active metformin hydrochloride 500 MG Oral Tablet ORAL metformin hydrochloride 500 MG Oral TabletOriginal Medicationmetformin hydrochloride 500 MG Oral Tablet *Reorder from [facility] for eRx and Interaction Alerts* 12/30/2014 Active timolol 2.5 MG/ML Ophthalmic Solution timolol 2.5 MG/ML Ophthalmic SolutionOriginal Medicationtimolol 2.5 MG/ML Ophthalmic Solution *Reorder from [facility] for eRx and Interaction Alerts* 12/30/2014 Active Lisinopril 40 MG Oral Tablet ORAL lisinopril 40 MG Oral TabletOriginal Medicationlisinopril 40 MG Oral Tablet *Reorder from [facility] for eRx and Interaction Alerts* 12/30/2014 Active Carvedilol 6.25 MG Oral Tablet ORAL carvedilol 6.25 MG Oral TabletOriginal Medicationcarvedilol 6.25 MG Oral Tablet *Reorder from [facility] for eRx and Interaction Alerts* 12/30/2014 Active atorvastatin 10 MG Oral Tablet ORAL atorvastatin 10 MG Oral TabletOriginal Medicationatorvastatin 10 MG Oral Tablet *Reorder from [facility] for eRx and Interaction Alerts* 12/30/2014 Active esomeprazole 40 MG Delayed Release Oral Capsule [Nexium] ORAL esomeprazole 40 MG Delayed Release Oral Capsule [Nexium]Original Medicationesomeprazole 40 MG Delayed Release Oral Capsule [Nexium] *Reorder from [facility] for eRx and Interaction Alerts* 12/30/2014 Active 24 HR glipizide 10 MG Extended Release Oral Tablet ORAL 24 HR glipizide 10 MG Extended Release Oral TabletOriginal [id number] HR glipizide 10 MG Extended Release Oral Tablet *[facility] for eRx and Interaction Alerts* 12/30/2014 Active Encounters Encounter Location Date Provider Diagnosis [facility] [address] [facility] [address] [facility] [address] [place], [place] [id number] 08/26/2024 DIXIE RAMIREZ Fungal infection of nail B35.1 ; Pain in right toe(s) M79.674 ; Pain in left toe(s) M79.675 and Unspecified atherosclerosis of [place] arteries of extremities, bilateral legs I70.203 Assessments Encounter Date Diagnosis (ICD Code) Assessment Notes Treatment Notes Treatment Clinical Notes Section Notes 08/26/2024 Fungal infection of nail (ICD-10 - B35.1) 08/26/2024 Pain in right toe(s) (ICD-10 - M79.674) 08/26/2024 Pain in left toe(s) (ICD-10 - M79.675) 08/26/2024 Unspecified atherosclerosis of [place] arteries of extremities, bilateral legs (ICD-10 - [...] Up: 9 weeks, Reason: Provider Name:DIXIE Jenn BRYSONG, 03/10/2025 11:40:00 AM, [address] [place] [address], [place], [place], [phone], Progress Notes * JAYSON LOPEZ EDOB:1950 (74 yo F)Acc No.[id number]:08/26/2024 Patient: JAYSON LINO Provider: Zara Ramirez DPM :1950 A ge:74 Y S ex:Female Date:08/26/2024 Address:[address] [place], [place] [phone] Subjective: * Chief Complaints: * 1 . [...] seen by Dr. Rowley was 01/2024., Initials [facility]. * ROS: G eneral / Constitutional: Patient denies c hange in appetite, fatigue, chills, fever.? C ardiovascular: Chest pain d enies. N eurologic: Loss of use of extremity d enies. * Medical History: * Medications: T aking Lisinopril 40 MG Oral Tablet ORAL , Notes to Pharmacist: lisinopril 40 MG Oral TabletOriginal Medicationlisinopril 40 MG Oral Tablet *Reorder from [facility] for eRx and Interaction Alerts*, Taking Carvedilol 6.25 MG Oral Tablet ORAL , Notes to Pharmacist: carvedilol 6.25 MG Oral TabletOriginal Medicationcarvedilol 6.25 MG Oral Tablet *Reorder from [facility] for eRx and Interaction Alerts*, Taking 24 HR glipizide 10 MG Extended Release Oral Tablet ORAL , Notes to Pharmacist: 24 HR glipizide 10 MG Extended Release Oral TabletOriginal [id number] HR glipizide 10 MG Extended Release Oral Tablet *Reorder from [facility] for eRx and Interaction Alerts*, Taking atorvastatin 10 MG Oral Tablet ORAL , Notes to Pharmacist: atorvastatin 10 MG Oral TabletOriginal Medicationatorvastatin 10 MG Oral Tablet *Reorder from [facility] for eRx and Interaction Alerts*, Taking esomeprazole 40 MG Delayed Release Oral Capsule [Nexium] ORAL , Notes to Pharmacist: esomeprazole 40 MG Delayed Release Oral Capsule [Nexium]Original Medicationesomeprazole 40 MG Delayed Release Oral Capsule [Nexium] *Reorder from [facility] for eRx and Interaction Alerts*, Taking latanoprost 0.05 MG/ML Ophthalmic Solution , Notes to Pharmacist: latanoprost 0.05 MG/ML Ophthalmic SolutionOriginal Medicationlatanoprost 0.05 MG/ML Ophthalmic Solution *Reorder from [facility] for eRx and Interaction Alerts*, Taking metformin hydrochloride 500 MG Oral Tablet ORAL , Notes to Pharmacist: metformin hydrochloride 500 MG Oral TabletOriginal Medicationmetformin hydrochloride 500 MG Oral Tablet *Reorder from [facility] for eRx and Interaction Alerts*, Taking timolol 2.5 MG/ML Ophthalmic Solution , Notes to Pharmacist: timolol 2.5 MG/ML Ophthalmic SolutionOriginal Medicationtimolol 2.5 MG/ML Ophthalmic Solution *Reorder from [facility] for eRx and Interaction Alerts*, Medication [...] M79.675 4 . U nspecified atherosclerosis of [place] arteries of extremities, bilateral legs - I70.203 Plan: * Treatment: * Follow Up: 9 weeks * Billing Information: * Visit Code: 11924 Office Visit, Est Pt., Level 3. * Procedure Codes: * Electronic signature of DIXIE RAMIREZ DPM on 02/26/2025 at 10:17 AM CDT Sign off status: Pending * Provider: Zara Ramirez DPM Date: 0 08/26/2024 Generated for Ana frias/iMke/Sadie on: 0 02/26/2025 10:17 AM CDT History and Physical Notes * [...]
--- OUTSIDE RECORDS SUMMARY | 2025-02-26 10:17 | XMS_ITS | Encounter Summary ---
Author Organization [facility] Address [address] [place] [address] Care Team Providers Care Executive Housekeeper Name Role Phone Ellen Rowley MD Primary Care Provider [phone] Reason for Visit * Reason Onset Date Comments Care Management Other 09/10/2024 Initial as sessment/verify face sheet information Encounter Details Date Type Department Care Team (Late st Contact Info) Description 09/10/2024 Telephone [facility] CARE COORDINATION [address] [place] [phone] Mary Ellen Solis, RN Care Management Other [...] care, and heating? Not very hard 09/10/2024 [facility] Occupat ional Health - Occupational Stress [...] any time in the past 12 m [facility], were you homeless or living in a senior living (including now)? 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
--- OUTSIDE RECORDS SUMMARY | 2025-02-26 10:18 | XMS_ITS | Referral Summary ---
Author Organization [facility] Address [address] [place] [address] Care Team Providers Care Bulb Sorter Name Role Phone Ellen Rowley MD Primary Care Provider Encounters Date Type Department Care Team Description 02/06/2025 Telephone [facility] Pulmonology [address] [place] [phone] Onesimo Welch MD 02/06/2025 3:00 PM CDT Office Visit [facility] Infectious Disease [address] [place] [phone] Onesimo Welch MD Mycobacterium avium infection (HCC) (Primary Dx) 01/30/2025 Orders Only [facility] Cardiology [address] [place] [address] [phone] Sam Young MD Sinus node dysfunction (HCC) (Primary Dx); Tachy-lidia syndrome (HCC); Complete heart block (HCC); Pacemaker 01/30/2025 10:30 AM CDT Ancillary Procedure [facility] Cardiology [address] [place] [address] [address] Tachy-lidia syndrome (HCC); Syncope, unspecified syncope type; Pacemaker; Atrial fibrillation, unspecified type (HCC) 01/30/2025 10:30 AM CDT Office Visit [facility] Cardiology [address] [place] [address] [phone] Sam Young MD Nonrheumatic mitral valve regurgitation (Primary Dx) 01/29/2025 10:45 AM CDT Office Visit [facility] Pulmonology [address] [facility] [address] [place] [address] Javier Pham MD 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); Pulmonary nodule; Abnormal CT of the chest; Cough, unspecified type 01/22/2025 Telephone [facility] Nephrology at [place] [address] [facility] [address] [place] [address] Jayden Verde 12/03/2024 Telephone [facility] Post Acute Care [address] [facility] [address], [place] [address] Na Mcdaniel MA 11/30/2024 Orders Only [facility] [address] [place] [phone] Emy Cardona MD 11/29/2024 Orders Only [facility] [address] [place] [phone] Kaleigh Mercedes PA 11/29/2024 NH/SNF Visit [address] [phone] Kaleigh Mercedes PA Complete heart block (HCC) (Primary Dx); Achalasia of cardia; Essential hypertension; Atrial fibrillation, unspecified type (HCC); Postoperative hypothyroidism; Hyponatremia; Stage 2 chronic kidney disease; Anemia, unspecified type; Pressure injury of sacral region, unstageable (HCC) 11/28/2024 NH/SNF Visit [facility] Post Acute Care [address] [address] Emy Cardona MD Atrial fibrillation, unspecified type (HCC) (Primary Dx); Essential hypertension; Pacemaker; Achalasia of cardia 11/27/2024 9:30 AM CDT Office Visit [facility] Cardiology [address] [facility] [address] [place] [address] Tabitha Washburn NP Complete heart block (HCC) (Primary Dx); Atrial fibrillation, unspecified type (HCC); Nonrheumatic mitral valve regurgitation; Essential hypertension; Dyslipidemia, goal LDL below 100; Sinus node dysfunction (HCC) from Last 3 Months Allergies Active [...] 1 tablet (137 mcg total) by mouth hand outside cutter before breakfast 30 tablet 1 10/19/19 25 [...] very moment. The critical access team from [facility] was also attending to the patient. She [...] 11:01 AM CDT): I endorse [facility]. The patient is at risk of [...] care. Assessment & Plan (10/01/2024 9:52 AM CUSTOMS INVESTIGATOR): I endorse admission to [facility]. The patient is at risk of [...] off. Assessment & Plan (10/01/2024 10:08 AM CUSTOMS INVESTIGATOR): I have viewed the injury of concern. [...] a.m. Assessment & Plan (10/01/2024 2:24 PM CUSTOMS INVESTIGATOR): Hemoglobin lower but overall stable, H&H 8.2/26.0. [...] appointment with thoracic surgery and GI at [facility]. He will retrieve the dates and times and bring those to our medical team. Assessment & Plan (10/03/2024 12:17 PM CUSTOMS INVESTIGATOR): Continue Jevity 1.5 tube feeding 60 mL/hour through the jejunostomy tube. Discussed with and dietitian. They are considering bolus feedings prior to discharging home. Assessment & Plan (10/01/2024 10:00 AM CUSTOMS INVESTIGATOR): Because of her esophageal achalasia and stenosis [...] daily. Assessment & Plan (10/03/2024 12:17 PM CUSTOMS INVESTIGATOR): Continue Synthroid 112 mcg daily. Assessment & Plan (10/01/2024 9:59 AM CUSTOMS INVESTIGATOR): This is a chronic problem. We will continue levothyroxine 112 mcg daily. 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 Continue the scripting of latanoprost 1 drop in both eyes once daily at bedtime and timolol 1 drop in both eyes daily. Assessment & Plan (10/03/2024 12:19 PM CUSTOMS INVESTIGATOR): We will continue latanoprost and timolol as scripted Assessment & Plan (10/01/2024 10:01 AM CUSTOMS INVESTIGATOR): We will continue scripting of latanoprost 0.005%, [...] follow. Assessment & Plan (10/01/2024 9:59 AM CUSTOMS INVESTIGATOR): Dietary will evaluate and advise. Hemorrhoids with complication 05/12/2021 History of total left knee replacement (TKR) Left-sided abdominal pain of unknown etiology Obesity, Class I, BMI 30-34.9 05/12/2021 Recurrent urinary tract infection 05/12/2021 Abnormal barium swallow 11/20/2020 Overview (05/12/2021): Added automatically from request for surgery [id number] Achalasia of cardia 11/20/2020 Overview (05/12/2021): Added automatically from request for surgery [id number] Assessment & Plan (11/29/2024 2:05 PM CDT): [...] She will have esophageal motility studies at [facility] tomorrow. She will continue jejunostomy tube feedings as followed by dietary. Assessment & Plan (11/26/2024 4:29 PM CDT): She has an appointment at [facility] on Monday of this week for [...] office Assessment & Plan (10/03/2024 12:18 PM CUSTOMS INVESTIGATOR): She now has a follow up appointment scheduled with the patrol judge and thoracic surgeon. Assessment & Plan (10/01/2024 2:24 PM CUSTOMS INVESTIGATOR): Status post J-tube placement. Tolerating continuous tube [...] Colace. Assessment & Plan (10/01/2024 10:02 AM CUSTOMS INVESTIGATOR): She currently is unable eat. She is being fed by jejunostomy tube feedings. She will follow up with her thoracic surgeon in 4-6 weeks per the discharge summary instructions. This is Dr. Miller with [facility]. She is being considered for a Heller myotomy. The social service department is arranging the follow up appointment and the and patient had been so advised. Weight loss 11/20/2020 Overview (05/12/2021): Added automatically from request for surgery [id number] Graves disease 05/25/2020 Dysphagia 04/17/2020 Overview (05/12/2021): Added automatically from request for surgery [id number] Assessment & Plan (11/24/2024 2:39 PM CDT): [...] intervention. Assessment & Plan (10/01/2024 10:00 AM CUSTOMS INVESTIGATOR): Follow up labs are ordered. Essential hypertension [...] dizziness/lightheadedness). Assessment & Plan (10/02/2024 8:45 AM CUSTOMS INVESTIGATOR): BP remains lower, but pt is asymptomatic. Encouraged continue clear liquid intake, monitor for orthostasis Assessment & Plan (10/01/2024 9:59 AM CUSTOMS INVESTIGATOR): We will monitor serial vital signs for [...] drink = 0.6 oz pur e alcohol) [facility] Utilities Answer Date Recorded In the past 12 months has th e [employer], gas, oil, or water [employer] threatened to shut off services in your [...] week 10/31/2024 How often do you attend [facility] ch or yazidism services? Never 10/31/2024 Do you belong to any clubs o r organizations such as baptism groups, unions, fraternal or athletic groups, or [...] any time in the past 12 m [facility], were you homeless or living in a chcf (including now)? No 11/05/2024 Personal Safety Answer Date Recorded Have you ever been in or are you currently in a harmful physical or emotional relationship or is someone making you feel afraid or unsafe? Denies 11/26/2024 Comments Unknown Sex and Gender Information Value Date Recorded Sex Assigned at Not on file Legal Sex Female 5:32 PM CUSTOMS INVESTIGATOR Gender Identity Not on file Sexual Orientation [...] on file Medical Devices Implanted Type Area Communications Instructor Device Identifier Shelf Expiration Date Model / Serial / Lot Knee Components Right: Knee [employer] Active Fixation Steroid Eluting Is 1 Connector Latex Free Sterile Right Atrial Right Atrial Ingevity Plus 59cm 7842 - [id number] Implanted:Qty: 1 on 10/31/2024 by Feliciano Peguero MD at [facility] [employer] 7842 / / [employer] Lead 7841 Endocardial Pacing Mr Is-1 Bipolar Connection 7841 - [id number] - [id number] Implanted:Qty: 1 on 10/31/2024 by Feliciano Peguero MD at [facility] [employer] Baron [id number] 09/09/2026 7841 / [id number] / [employer]. Accolade Latitude Nxt Pacesafe Easyview 4.45x5.02cm 2 Chamber Is1 L311 - [id number] - [id number] Implanted:Qty: 1 on 10/31/2024 by Feliciano Peguero MD at [facility] [employer] C.[employer]M. [id number] 06/12/2026 L311 / [id number] / Procedures Procedure Name Priority Date/Time Associated Diagnosis Comments EGFR STAT 11/30/2024 10:21 AM CDT BASIC METABOLIC PANEL STAT 11/30/2024 10:21 AM CDT EGFR Routine 11/29/2024 6:09 AM CDT BASIC METABOLIC PANEL Routine 11/29/2024 6:09 AM CDT CBC WITHOUT DIFFERENTIAL Routine 11/29/2024 6:09 AM CDT POCT LIPID PANEL Routine 11/27/2024 9:38 AM CDT Dyslipidemia, goal LDL below 100 HEMOGLOBIN A1C Routine 07/16/2019 7:34 AM CUSTOMS INVESTIGATOR DEXA AXIAL SKELETON BONE DENSITY 1 OR MORE SITES Routine 06/08/2015 2:48 PM CUSTOMS INVESTIGATOR from Last 3 Months or Most Recently [...] Current interpretive data was last reviewed 2021. [facility], [address] [place] [address]., [address] Blood 11/30/2024 10:2 1 AM CDT 11/30/2024 10:29 AM CDT us Emy Cardona MD LAB BLOOD ORDERABLES Final R esult LISA [address] [place] [address] * (ABNORMAL) Basic metabolic panel (11/30/2024 10:21 AM CDT) Sodium 132(L) 135 - 145 mmol/L LISA ANDREW Comment:[address] [address] Potassium, pl 5.0(H) 3.3 - 4.9 mmol/L LISA ANDREW Comment:[address] [address] Chloride 95(L) 97 - 110 mmol/L LISA ANDREW Comment:[address] [address] CO2 27 22 - 32 mmol/L LISA Comment:[address] [address] Anion gap 10 2 - 15 mmol/L LISA Comment:[address] [address] BUN 45(H) 6 - 25 mg/dL LISA Comment:[address] [address] Creatinine 0.82 0.60 - 1.10 mg/dL LISA Comment:[address] [address] Glucose 123 70 - 199 mg/dL LISA [...] Current interpretive data was last revised 2022. [facility], [address] [place] [address]., [address] Calcium 9.5 8.5 - 10.3 mg/dL LISA Comment:[address] [address] Blood 11/30/2024 10:2 1 AM CDT 11/30/2024 10:29 AM CDT us Emy Cardona MD LAB BLOOD ORDERABLES Final R esult [facility]ISA [address] [place] [address] * eGFR (11/29/2024 6:09 AM CDT) eGFR [...] Current interpretive data was last reviewed 2021. [address] [address] Blood 11/29/2024 6:09 AM CDT 11/29/2024 6:46 AM CDT Kaleigh MEDRANO LAB BLOOD ORDERABLES Final Resu lt LISA [address] Department [place] [address] * (ABNORMAL) CBC without differential (11/29/2024 6:09 AM CDT) WBC 4.55 3.80 - 9.90 K/cumm LISA ANDREW Comment:[address] [address] Hgb 7.8(L) 11.9 - 15.5 g/dL LISA ANDREW Comment:[address] [address] Hct 24.5(L) 35.6 - 45.5 % LISA ANDREW Comment:[address] [address] Plt 250 150 - 400 K/cumm LISA ANDREW Comment:[address] [address] MPV 10.6 9.1 - 12.3 fL LISA ANDREW Comment:[address] [address] RBC 2.44(L) 3.90 - 5.20 M/cumm LISA Comment:[address] [address] MCV 100.4(H) 81.3 - 96.4 fL LISA Comment:[address] [address] MCH 32.0 27.1 - 33.3 pg LISA MH Comment:[address], [address] MCHC 31.8(L) 32.3 - 35.7 g/dL LISA Comment:[address], [address] RDW CV 15.6(H) 11.1 - 14.9 % LISA Comment:[address], [address] RDW SD 57.5(H) 35.7 - 48.1 fL LISA Comment:[address], [address] NRBC abs 0.00 0.00 - 0.01 K/cumm LISA Comment:[address], [address] Blood 11/29/2024 6:09 AM CDT 11/29/2024 6:45 AM CDT us Kaleigh MEDRANO LAB BLOOD ORDERABLES Final Resu lt LISA [address] [facility] Department [place] [address] * (ABNORMAL) Basic metabolic panel (11/29/2024 6:09 AM CDT) Sodium 132(L) 135 - 145 mmol/L LISA Comment:[address], [address] Potassium, pl 4.6 3.3 - 4.9 mmol/L LISA Comment:[address], [address] Chloride 96(L) 97 - 110 mmol/L LISA Comment:[address] [address] CO2 31 22 - 32 mmol/L LISA Comment:[address] [address] Anion gap 5 2 - 15 mmol/L LISA Comment:[address] [address] BUN 48(H) 6 - 25 mg/dL LISA Comment:[address] [address] Creatinine 0.88 0.60 - 1.10 mg/dL LISA Comment:[address] [address] Glucose 90 70 - 199 mg/dL LISA [...] Current interpretive data was last revised 2022. [facility], [address] [place] [address]., [address] Calcium 8.9 8.5 - 10.3 mg/dL LISA Comment:[address] [address] Blood 11/29/2024 6:09 AM CDT 11/29/2024 6:46 AM CDT us Kaleigh MEDRANO LAB BLOOD ORDERABLES Final Resu lt KATHIDANIEL [address] Department [place] [address] * (ABNORMAL) POCT lipid panel (11/27/2024 9:38 [...] CARE TEST ORDERABLES F inal Result * Hemoglobin A1c (07/16/2019 7:34 AM CUSTOMS INVESTIGATOR) Hemoglobin A1c % 5.0 4.0 - 5.6 % [facility] NAMED [facility] Comment: ADA 2016 GUIDELINES: Initial Diagnostic Criteria HbA1c Result: Interpretation: <5.7% Normal 5.7-6.4% At risk for diabetes mellitus >=6.5% Consistent with diabetes mellitus Diabetes monitoring Target value (ADA Recommended) <7% 07/16/2019 7:34 AM CUSTOMS INVESTIGATOR 07/16/2019 7:40 AM CUSTOMS INVESTIGATOR Narrative Resulting Agency Comment CLI Miguel Espinoza MD LAB BLOOD ORDERABLES Final Re sult [place] [address] [place] [address], [facility] [phone] * Dexa Axial Skeleton Bone Density 1 or 2 Site (06/08/2015 2:48 PM CUSTOMS INVESTIGATOR) Anatomical Region Laterality Modality Body N/A Radiographic Keyla ging 06/08/2015 2:48 PM CUSTOMS INVESTIGATOR Impressions 06/08/2015 4:50 PM CUSTOMS INVESTIGATOR Bone mineral density in the lumbar spine, [...] PM [facility] [EOD] Narrative 06/08/2015 4:50 PM CUSTOMS INVESTIGATOR HISTORY: 65 year old postmenopausal female with given history of primary hyperparathyroidism. Current Height: 62 inches Maximum Height: 63 inches Weight: 253 pounds RISK FACTORS: Chronic antacid use. Hyperparathyroidism. COMPARISON(S): None WAGE AND SALARY ADMINISTRATOR/MODEL: [employer] SL (S/N [id number]) FINDINGS: AP lumbar spine L1-L4 Total BMD is 0.918 g/tu5D-jmnrb is -1.2 Left Hip Total BMD is 0.771 g/dn0P-tovwz is -1.4 Neck BMD is 0.642 g/fo0I-jzflh is -1.9 Left forearm BMD in the radius 33% is 0.559 g/zs8W-vuadq is -2.2 Procedure Note Provider, MD Colleen - 12/14/2020 HISTORY: 65 year old postmenopausal female with given history of primary hyperparathyroidism. Current Height: 62 inches Maximum Height: 63 inches Weight: 253 pounds RISK FACTORS: Chronic antacid use. Hyperparathyroidism. COMPARISON(S): None WAGE AND SALARY ADMINISTRATOR/MODEL: tribr (S/N [id number]) FINDINGS: AP lumbar spine L1-L4 Total BMD is 0.918 g/xj8Y-pcola is -1.2 Left Hip Total BMD is 0.771 g/oo1N-aadxt is -1.4 Neck BMD is 0.642 g/du7M-yjbax is -1.9 Left forearm BMD in the radius 33% is 0.559 g/pe0T-gjvyd is -2.2 IMPRESSION: Bone mineral density in [...] Carlin M.D. TB:tb 04:46 PM 04:46 PM [facility] [EOD] Cirilo Pedersen MD IMG DXA PROCEDURES Final Resul t from Last 3 Months or Most Recently Relevant to Health Maintenance Insurance [facility] MEDICARE [facility] MEDICARE Address: [address] [place] [address] [facility] [address] [facility] MEDICARE [facility] MEDIC[facility] Address: [address] [address] [place] [address] [employer] MEDICARE A[employer]NA MEDICARE Advance Directives For more information, please contact: [phone] Documents on File Type Date Recorded Patient Trim Line Worker Expl anation Power of Quill Machine Operator ADVANCE DIRECTIVE 10/18/2024 9:27 AM POLST - Phys Order for PT Preferences ADVANCE DIRECTIVE 09/04/2019 1:16 PM Power of Quill Machine Operator-Medical ADVANCE DIRECTIVE 07/16/2019 12:00 AM POW ER OF WORKERS COMPENSATION CLAIMS ANALYST MEDICAL * Full Code (Latest Code Status [...] 8:52 PM 12/15/2021 9:07 PM Care Teams Bulb Sorter Relationship Specialty Start Date End Date Ellen Rowley MD [facility] [place] [address] PCP - General Family Medicine 02/09/22
--- OUTSIDE RECORDS SUMMARY | 2025-02-26 10:18 | XMS_ITS | Clinical Summary ---
Author Organization [facility] Address [address] [place] [phone] Care Team Providers Care Building Contractor Name Role Phone Ellen Rowley MD Primary [...] 1 tablet (137 mcg total) by mouth early childhood education coordinator before breakfast 30 tablet 1 10/19/19 25 [...] very moment. The critical access team from [facility] was also attending to the patient. She [...] care. Assessment & Plan (10/01/2024 9:52 AM SANITARY LANDFILL OPERATOR): [facility] [...] off. Assessment & Plan (10/01/2024 10:08 AM SANITARY LANDFILL OPERATOR): I have viewed the injury of [...] a.m. Assessment & Plan (10/01/2024 2:24 PM SANITARY LANDFILL OPERATOR): Hemoglobin lower but overall stable, H&H [...] appointment with thoracic surgery and GI at [facility]. He will retrieve the dates and times and bring those to our medical team. Assessment & Plan (10/03/2024 12:17 PM SANITARY LANDFILL OPERATOR): Continue Jevity 1.5 tube feeding 60 mL/hour through the jejunostomy tube. Discussed with and dietitian. They are considering bolus feedings prior to discharging home. 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 Assessment & Plan (10/03/2024 12:17 PM SANITARY LANDFILL OPERATOR): Continue Synthroid 112 mcg daily. Assessment & Plan (10/01/2024 9:59 AM SANITARY LANDFILL OPERATOR): This is a chronic problem. We will continue levothyroxine 112 mcg daily. 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 Continue the scripting of latanoprost 1 drop in both eyes once daily at bedtime and timolol 1 drop in both eyes daily. Assessment & Plan (10/03/2024 12:19 PM SANITARY LANDFILL OPERATOR): We will continue latanoprost and timolol as scripted Assessment & Plan (10/01/2024 10:01 AM SANITARY LANDFILL OPERATOR): We will continue scripting of latanoprost [...] follow. Assessment & Plan (10/01/2024 9:59 AM SANITARY LANDFILL OPERATOR): Dietary will evaluate and advise. Hemorrhoids with complication 05/12/2021 History of total left knee replacement (TKR) Left-sided abdominal pain of unknown etiology Obesity, Class I, BMI 30-34.9 05/12/2021 Recurrent urinary tract infection 05/12/2021 Abnormal barium swallow 11/20/2020 Overview (05/12/2021): Added automatically from request for surgery [id number] Achalasia of cardia 11/20/2020 Overview (05/12/2021): Added automatically from request for surgery [id number] Assessment & Plan (11/29/2024 2:05 PM CDT): [...] She will have esophageal motility studies at [facility] tomorrow. She will continue jejunostomy tube feedings as followed by dietary. Assessment & Plan (11/26/2024 4:29 PM CDT): She has an appointment at [facility] on Monday of this week for [...] office Assessment & Plan (10/03/2024 12:18 PM SANITARY LANDFILL OPERATOR): She now has a follow up appointment scheduled with the electrician apprentice powerhouse and thoracic surgeon. Assessment & Plan (10/01/2024 2:24 PM SANITARY LANDFILL OPERATOR): Status post J-tube placement. Tolerating continuous [...] Colace. Assessment & Plan (10/01/2024 10:02 AM SANITARY LANDFILL OPERATOR): She currently is unable eat. She is being fed by jejunostomy tube feedings. She will follow up with her thoracic surgeon in 4-6 weeks per the discharge summary instructions. This is Dr. Miller with [facility]. She is being considered for a Heller myotomy. The social service department is arranging the follow up appointment and the and patient had been so advised. Weight loss 11/20/2020 Overview (05/12/2021): Added automatically from request for surgery [id number] Graves disease 05/25/2020 Dysphagia 04/17/2020 Overview (05/12/2021): Added automatically from request for surgery [id number] Assessment & Plan (11/24/2024 2:39 PM CDT): [...] intervention. Assessment & Plan (10/01/2024 10:00 AM SANITARY LANDFILL OPERATOR): Follow up labs are ordered. Essential [...] dizziness/lightheadedness). Assessment & Plan (10/02/2024 8:45 AM SANITARY LANDFILL OPERATOR): BP remains lower, but pt is asymptomatic. Encouraged continue clear liquid intake, monitor for orthostasis Assessment & Plan (10/01/2024 9:59 AM SANITARY LANDFILL OPERATOR): We will monitor serial vital signs for trending. Our goal will be us the systolic blood pressures of 150 and a diastolic blood pressure below 90. Resolved Problems Problem Noted Date Diagnosed Date Resolved Date Pressure injury 11/14/2024 11/14/2024 Anemia 10/22/2024 11/12/2024 Well child examination 05/12/202110/01 Encounters Date Type Department Care Team Description 02/06/2025 3:00 PM CDT Office Visit [facility] [address] [place] [phone] Onesimo Welch MD Mycobacterium avium infection (HCC) (Primary Dx) 02/06/2025 Telephone [facility] [address] [place] [phone] Onesimo Welch MD 01/30/2025 10:30 AM CDT Ancillary Procedure [facility] [address] [place] [phone] Tachy-lidia syndrome (HCC); Syncope, unspecified syncope type; Pacemaker; Atrial fibrillation, unspecified type (HCC) 01/30/2025 10:30 AM CDT Office Visit [facility] [address] [place] [phone] Sam Young MD Nonrheumatic mitral valve regurgitation (Primary Dx) 01/30/2025 Orders Only [facility] [address] [place] [phone] Sam Young MD Sinus node dysfunction (HCC) (Primary Dx); Tachy-lidia syndrome (HCC); Complete heart block (HCC); Pacemaker 01/29/2025 10:45 AM CDT Office Visit [facility] [address] [place] [phone] Javier Pham MD 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); Pulmonary nodule; Abnormal CT of the chest; Cough, unspecified type 01/22/2025 Telephone [facility] [place] [address] [place] [address] Jayden Verde 12/03/2024 Telephone [facility] [address], [place] [address] Na Mcdaniel MA 11/30/2024 Orders Only [facility] [address] [place] [phone] Emy Cardona MD 11/29/2024 Orders Only [facility] [address] [place] [phone] Kaleigh Mercedes PA 11/29/2024 NH/SNF Visit [address] [phone] Kaleigh Mercedes PA Complete heart block (HCC) (Primary Dx); Achalasia of cardia; Essential hypertension; Atrial fibrillation, unspecified type (HCC); Postoperative hypothyroidism; Hyponatremia; Stage 2 chronic kidney disease; Anemia, unspecified type; Pressure injury of sacral region, unstageable (HCC) 11/28/2024 NH/SNF Visit [facility] [address] [phone] Emy Cardona MD Atrial fibrillation, unspecified type (HCC) (Primary Dx); Essential hypertension; Pacemaker; Achalasia of cardia 11/27/2024 9:30 AM CDT Office Visit [facility] [address] [facility] [address] [place] [phone] Tabitha Washburn NP Complete heart block (HCC) (Primary Dx); Atrial fibrillation, unspecified type (HCC); Nonrheumatic mitral valve regurgitation; Essential hypertension; Dyslipidemia, goal LDL below 100; Sinus node dysfunction (HCC) from Last 3 Months Immunizations Immunization Administration Dates Next Due Pneumococcal Polysaccharide PPV23 04/01/2020 Surgical History Surgery Date Site/Laterality Comments CHOLECYSTECTOMY APPENDECTOMY long time ago TONSILLECTOMY as a child REPLACEMENT TOTAL KNEE Right 2020 CATARACT EXTRACTION, BILATERAL DILATION AND CURETTAGE OF UTERUS ESOPHAGEAL DILATION several times THYROIDECTOMY with left upper PTH adenoma resection 12/14/2021 COLONOSCOPY years ago PORT PLACEMENT CHEST >5 YEARS 09/16/2024 N/A CARDIAC ELECTROPHYSIOLOGY PROCEDURE 10/30/2024 N/A Procedure: INSERT TEMPORARY PACEMAKER (PPM) SINGLE LEAD 10349; Surgeon: Feliciano Peguero MD; Location: [facility]; Service: Cardiovascular; Laterality: N/A; CARDIAC ELECTROPHYSIOLOGY PROCEDURE 10/31/2024 Left Procedure: IMPLANT DUAL CHAMBER PPM SYSTEM W/ DUAL ELECTRODES (GEN AND LEADS, NEW OR REPLACE) 17125; Surgeon: Feliciano Peguero MD; Location: B [facility] [...] drink = 0.6 oz pur e alcohol) [facility] Utilities Answer Date Recorded In the past 12 months has Peter Blueberry, gas, oil, or water [employer] threatened to shut off services in your [...] any clubs o r organizations such as quaker groups, unions, fraternal or athletic groups, or [...] any time in the past 12 m [facility], were you homeless or living in a usp (including now)? No 11/05/2024 Personal Safety Answer Date Recorded Have you ever been in or are you currently in a harmful physical or emotional relationship or is someone making you feel afraid or unsafe? Denies 11/26/2024 Comments Unknown Sex and Gender Information Value Date Recorded Sex Assigned at Not on file Legal Sex Female 5:32 PM SANITARY LANDFILL OPERATOR Gender Identity Not on file Sexual [...] 2 - PCV) 04/01/2021 04/01/2020 Covid-19 Vaccine (4 - 2023-2 5 season) 2024 05/18/2021, 10/10/2020, 09/18/2020 Hemoglobin A1C 03/10/2025 09/10/2024, 07/16/2019 Influenza Vaccine (#1) 2025 , 04/18/2023, 04/10/2023, Additional history exists Depression Screening 10/30/2025 10/30/2024, 10/30/2024, 10/14/2024, Additional history exists Fall Risk Assessment 11/09/2025 11/09/2024 eGFR 11/30/2025 11/30/2024, 05/0 08/2024, 11/25/2024, Additional history exists Lipid Panel 12/09/2025 12/09/2024, 10/31, 02/15/2024, Additional history exists Osteoporosis Screening-Bone Density Scan 07/11/2026 07/11/2024, 05/19/2022, 09/02/2020, Additional history exists Zoster Vaccine Completed 05/20/2024, 02/27/2024 Breast Cancer Screening-Mammogram Discontinued 06/28/2024, 06/28/2024, 06/27/2023, Additional history exists Medical Devices Implanted Type Area Talent Acquisition Relationship Manager Device Identifier Shelf Expiration Date Model / Serial / Lot Knee Components Right: Knee [employer] Active Fixation Steroid Eluting Is 1 Connector Latex Free Sterile Right Atrial Right Atrial Ingevity Plus 59cm 7842 - [id number] Implanted:Qty: 1 on 10/31/2024 by Feliciano Peguero MD at [facility] [employer] 7842 / / [employer] Lead 7841 Endocardial Pacing Mr Is-1 Bipolar Connection 7841 - [id number] - [id number] Implanted:Qty: 1 on 10/31/2024 by Feliciano Peguero MD at [facility] [employer] [id number] 09/09/2026 7841 / [id number] / [employer]. Accolade Latitude Nxt Pacesafe Easyview 4.45x5.02cm 2 Chamber Is1 L311 - [id number] - [id number] Implanted:Qty: 1 on 10/31/2024 by Feliciano Peguero MD at [facility] [employer]. [id number] 06/12/2026 11 / [id number] / Procedures Procedure Name Priority Date/Time Associated [...] 100 HEMOGLOBIN A1C Routine 07/16/2019 7:34 AM SANITARY LANDFILL OPERATOR DEXA AXIAL SKELETON BONE DENSITY 1 OR MORE SITES Routine 06/08/2015 2:48 PM SANITARY LANDFILL OPERATOR from Last 3 Months or Most [...] Current interpretive data was last reviewed 2021. [facility], [address] [place] [address]., [address] Blood 11/30/2024 10:2 1 AM CDT 11/30/2024 10:29 AM CDT us Emy Cardona MD LAB BLOOD ORDERABLES Final R esult [address] [place] [address] * (ABNORMAL) Basic metabolic panel (11/30/2024 10:21 AM CDT) Sodium 132(L) 135 - 145 mmol/L LISA Comment:[address] [address] Potassium, pl 5.0(H) 3.3 - 4.9 mmol/L LISA Comment:[address] [address] Chloride 95(L) 97 - 110 mmol/L LISA Comment:[address] [address] CO2 27 22 - 32 mmol/L LISA Comment:[address] [address] Anion gap 10 2 - 15 mmol/L LISA Comment:[address] [address] BUN 45(H) 6 - 25 mg/dL LISA Comment:[address] [address] Creatinine 0.82 0.60 - 1.10 mg/dL LISA Comment:[address] [address] Glucose 123 70 - 199 mg/dL [facility] Comment: Interpretive Data Fasting glucose >/= [...] Current interpretive data was last revised 2022. [facility], [facility] [place] [place]., [address] Calcium 9.5 8.5 - 10.3 mg/dL LISA ANDREW Comment:[facility], [address] [place]., [address] Blood 11/30/2024 10:2 1 AM CDT 11/30/2024 10:29 AM CDT us Emy Cardona MD LAB BLOOD ORDERABLES Final R esult Performing Organization Address City/[facility]/ZIP Co de Phone Number LISA [address] Department [place] [address] * eGFR (11/29/2024 6:09 AM CDT) eGFR [...] Current interpretive data was last reviewed 2021. [facility], [address] [place] [address]., [address] Blood 11/29/2024 6:09 AM CDT 11/29/2024 6:46 AM CDT us Kaleigh MEDRANO LAB BLOOD ORDERABLES Final Resu lt LISA [address] [facility] [place] [address] * (ABNORMAL) CBC without differential (11/29/2024 6:09 AM CDT) WBC 4.55 3.80 - 9.90 K/cumm LISA Comment:[address], [address] Hgb 7.8(L) 11.9 - 15.5 g/dL LISA Comment:[address], [address] Hct 24.5(L) 35.6 - 45.5 % LISA Comment:[address], [address] Plt 250 150 - 400 K/cumm LISA Comment:[address], [address] MPV 10.6 9.1 - 12.3 fL LISA Comment:[address], [address] RBC 2.44(L) 3.90 - 5.20 M/cumm LISA Comment:[address], [address] MCV 100.4(H) 81.3 - 96.4 fL [facility], [address] MCH 32.0 27.1 - 33.3 pg LISA Comment:[address], [address] MCHC 31.8(L) 32.3 - 35.7 g/dL LISA Comment:[address], [address] RDW CV 15.6(H) 11.1 - 14.9 % LISA Comment:[address], [address] RDW SD 57.5(H) 35.7 - 48.1 fL LISA Comment:[address], [address] NRBC abs 0.00 0.00 - 0.01 K/cumm LISA Comment:[address] [address] Blood 11/29/2024 6:09 AM CDT 11/29/2024 6:45 AM CDT Kaleigh MEDRANO LAB BLOOD ORDERABLES Final Resu lt [facility] [address] [facility] [place] [address] * (ABNORMAL) Basic metabolic panel (11/29/2024 6:09 AM CDT) Sodium 132(L) 135 - 145 mmol/L LISA Comment:[address] [address] Potassium, pl 4.6 3.3 - 4.9 mmol/L LISA Comment:[address] [address] Chloride 96(L) 97 - 110 mmol/L LISA Comment:[address] [address] CO2 31 22 - 32 mmol/L LISA Comment:[address] [address] Anion gap 5 2 - 15 mmol/L LISA Comment:[address] [address] BUN 48(H) 6 - 25 mg/dL LISA Comment:[address] [address] Creatinine 0.88 0.60 - 1.10 mg/dL LISA Comment:[address] [address] Glucose 90 70 - 199 mg/dL LISA [...] Current interpretive data was last revised 2022. [facility], [address] [place]., [address] Calcium 8.9 8.5 - 10.3 mg/dL LISA ANDREW Comment:[facility], [address] [place]., [address] Blood 11/29/2024 6:09 AM CDT 11/29/2024 6:46 AM CDT Kaleigh MEDRANO LAB BLOOD ORDERABLES Final Resu lt LISA [address] [facility] [place] [address] * (ABNORMAL) POCT lipid panel (11/27/2024 9:38 [...] Result * Hemoglobin A1c (07/16/2019 7:34 AM SANITARY LANDFILL OPERATOR) Hemoglobin A1c % 5.0 4.0 - 5.6 % [facility] Comment: ADA 2016 GUIDELINES: Initial Diagnostic Criteria HbA1c Result: Interpretation: <5.7% Normal 5.7-6.4% At risk for diabetes mellitus >=6.5% Consistent with diabetes mellitus Diabetes monitoring Target value (ADA Recommended) <7% 07/16/2019 7:34 AM SANITARY LANDFILL OPERATOR 07/16/2019 7:40 AM SANITARY LANDFILL OPERATOR Narrative Resulting Agency Comment CLI Miguel Espinoza MD LAB BLOOD ORDERAB[place] [address], [facility] [phone] * Dexa Axial Skeleton Bone Density 1 or 2 Site (06/08/2015 2:48 PM SANITARY LANDFILL OPERATOR) Anatomical Region Laterality Modality Body N/A Radiographic Keyla ging 06/08/2015 2:48 PM SANITARY LANDFILL OPERATOR Impressions 06/08/2015 4:50 PM SANITARY LANDFILL OPERATOR Bone mineral density in the lumbar [...] PM [facility] [EOD] Narrative 06/08/2015 4:50 PM SANITARY LANDFILL OPERATOR HISTORY: 65 year old postmenopausal female with given history of primary hyperparathyroidism. Current Height: 62 inches Maximum Height: 63 inches Weight: 253 pounds RISK FACTORS: Chronic antacid use. Hyperparathyroidism. 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 Current Height: 62 inches Maximum Height: 63 inches Weight: 253 pounds RISK FACTORS: Chronic antacid use. Hyperparathyroidism. 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 TB:tb 04:46 PM 04:46 PM BM [EOD] Cirilo Pedersen MD IMG DXA PROCEDURES Final Resul t from Last 3 Months or Most Recently Relevant to Health [place] [address] [place] [address] [facility] [id number] UHC MEDICARE ADVANTAGE [facility] MEDICARE [facility] MEDICARE Advance Directives For more information, please contact: [phone] Documents on File Type Date Recorded Patient Six Horse Hitch Driver Expl anation Power of Weekend Receptionist ADVANCE DIRECTIVE 10/18/2024 9:27 AM POLST - Phys Order for PT Preferences ADVANCE DIRECTIVE 09/04/2019 1:16 PM Power of Weekend Receptionist-Medical ADVANCE DIRECTIVE 07/16/2019 12:00 AM POW ER OF RESEARCH NURSE MEDICAL * Full Code (Latest Code Status [...] 8:52 PM 12/15/2021 9:07 PM Care Teams Building Contractor Relationship Specialty Start Date End Date Ellen Rowley MD [facility] [place] [address] PCP - General Family Medicine 02/09/22
--- OUTSIDE RECORDS SUMMARY | 2025-02-26 10:18 | XMS_ITS ---
Author Organization [facility] Address [address] [place], [place] [id number] Care Team Providers Care Senior Grants Officer Name Role Phone DIXIE RAMIREZ Unavailable [phone] Ellen Rowley Unavailable Unavailable REASON FOR VISIT *General care Encounters Encounter Location Date Provider Diagnosis [facility] [address] [place], [place] [id number] 11/25/2024 DIXIE RAMIREZ Plan Of Treatment Next Appt Details Provider Name:DIXIE GIBBS, 03/10/2025 11:40:00 AM, [address], [place], [place], [id number], Progress Notes * JAYSON LOPEZ EDOB:1950 (74 yo F)Acc No.[id number]:11/25/2024 Patient: JAYSON LINO Provider: Zara Ramirez DPM :1950 A ge:74 Y S ex:Female Date:11/25/2024 Address:[address] [place], [place] [id number] Subjective: * Chief Complaints: * 1 . *General care. * Medical History: Objective: * Vitals: Assessment: Plan: * Treatment: * Billing Information: * Visit Code: * Procedure Codes: * Electronic signature of DIXIE RAMIREZ DPM on 02/26/2025 at 10:17 AM CDT Sign off status: Pending * Provider: Zara Ramirez, DPM Date: 0 11/25/2024 Generated for Ana frias/Mike/Sadie on: 0 02/26/2025 10:17 AM CDT
--- OUTSIDE RECORDS SUMMARY | 2025-02-26 10:18 | XMS_ITS ---
Author Organization [facility] Address [address] [place], [place] [address] Care Team Providers Care Industrial Conveyor Belt Repairer Name Role Phone DIXIE RAMIREZ Unavailable [phone] Ellen Rowley Unavailable Unavailable Allergies Allergen (clinical [...] Medicationatorvastatin 10 MG Oral Tablet *Reorder from [employer] for eRx and Interaction Alerts* 12/30/2014 Active timolol 2.5 MG/ML Ophthalmic Solution timolol 2.5 MG/ML Ophthalmic SolutionOriginal Medicationtimolol 2.5 MG/ML Ophthalmic Solution *Reorder from [employer] for eRx and Interaction Alerts* 12/30/2014 Active metformin hydrochloride 500 MG Oral Tablet ORAL metformin hydrochloride 500 MG Oral TabletOriginal Medicationmetformin hydrochloride 500 MG Oral Tablet *Reorder from [employer] for eRx and Interaction Alerts* 12/30/2014 Active latanoprost 0.05 MG/ML Ophthalmic Solution latanoprost 0.05 MG/ML Ophthalmic SolutionOriginal Medicationlatanoprost 0.05 MG/ML Ophthalmic Solution *Reorder from [employer] for eRx and Interaction Alerts* 12/30/2014 Active esomeprazole 40 MG Delayed Release Oral Capsule [Nexium] ORAL esomeprazole 40 MG Delayed Release Oral Capsule [Nexium]Original Medicationesomeprazole 40 MG Delayed Release Oral Capsule [Nexium] *Reorder from [employer] for eRx and Interaction Alerts* 12/30/2014 Active Lisinopril 40 MG Oral Tablet ORAL lisinopril 40 MG Oral TabletOriginal Medicationlisinopril 40 MG Oral Tablet *Reorder from [facility] for eRx and Interaction Alerts* 12/30/2014 Active 24 HR glipizide 10 MG Extended Release Oral Tablet ORAL 24 HR glipizide 10 MG Extended Release Oral TabletOriginal Yliuqusfpj38 HR glipizide 10 MG Extended Release Oral Tablet *Reorder from [employer] for eRx and Interaction Alerts* 12/30/2014 Active Carvedilol 6.25 MG Oral Tablet ORAL carvedilol 6.25 MG Oral TabletOriginal Medicationcarvedilol 6.25 MG Oral Tablet *Reorder from [facility] for eRx and Interaction Alerts* 12/30/2014 Active Vital Signs Height 63.00 in 01/06/2025 Weight 150 lbs 01/06/2025 BMI 26.57 kg/m2 01/06/2025 Height-cm 160.02 cm 01/06/2025 Weight-kg 68.04 kg 01/06/2025 Encounters Encounter Location Date Provider Diagnosis [facility] [address] [facility] [address] [place], [place] [id number] 01/06/2025 DIXIE RAMIREZ Fungal infection of nail B35.1 ; Pain in right toe(s) M79.674 ; Pain in left toe(s) M79.675 and Unspecified atherosclerosis of [place] arteries of extremities, bilateral legs I70.203 Assessments Encounter Date Diagnosis (ICD Code) Assessment Notes Treatment Notes Treatment Clinical Notes Section Notes 01/06/2025 Fungal infection of nail (ICD-10 - B35.1) 01/06/2025 Pain in right toe(s) (ICD-10 - M79.674) 01/06/2025 Pain in left toe(s) (ICD-10 - M79.675) 01/06/2025 Unspecified atherosclerosis of [place] arteries of extremities, bilateral legs (ICD-10 - [...] Up: 9 weeks, Reason: Provider Name:DIXIE GIBBS, 03/10/2025 11:40:00 AM, [address] [facility] [address], [place], [place], [id number], Progress Notes * JESSICAYARELISET EDOB:1950 (74 yo F)Acc No.[id number]:01/06/2025 Patient: JAYSON LINO Provider: Zara Ramirez DPM :1950 A ge:74 Y S ex:Female Date:01/06/2025 Address:[address] [place], [place] [id number] Subjective: * Chief Complaints: * 1 . [...] Medicationlisinopril 40 MG Oral Tablet *Reorder from [facility] for eRx and Interaction Alerts*, Taking Carvedilol 6.25 MG Oral Tablet ORAL , Notes to Pharmacist: carvedilol 6.25 MG Oral TabletOriginal Medicationcarvedilol 6.25 MG Oral Tablet *Reorder from [facility] for eRx and Interaction Alerts*, Taking 24 HR glipizide 10 MG Extended Release Oral Tablet ORAL , Notes to Pharmacist: 24 HR glipizide 10 MG Extended Release Oral TabletOriginal Vmozapacrc73 HR glipizide 10 MG Extended Release Oral Tablet *Reorder from [facility] for eRx and Interaction Alerts*, Taking atorvastatin 10 MG Oral Tablet ORAL , Notes to Pharmacist: atorvastatin 10 MG Oral TabletOriginal Medicationatorvastatin 10 MG Oral Tablet *Reorder from [facility] for eRx and Interaction Alerts*, Taking esomeprazole 40 MG Delayed Release Oral Capsule [Nexium] ORAL , Notes to Pharmacist: esomeprazole 40 MG Delayed Release Oral Capsule [Nexium]Original Medicationesomeprazole 40 MG Delayed Release Oral Capsule [Nexium] *Reorder from [facility] for eRx and Interaction Alerts*, Taking latanoprost 0.05 MG/ML Ophthalmic Solution , Notes to Pharmacist: latanoprost 0.05 MG/ML Ophthalmic SolutionOriginal Medicationlatanoprost 0.05 MG/ML Ophthalmic Solution *Reorder from [facility] for eRx and Interaction Alerts*, Taking metformin hydrochloride 500 MG Oral Tablet ORAL , Notes to Pharmacist: metformin hydrochloride 500 MG Oral TabletOriginal Medicationmetformin hydrochloride 500 MG Oral Tablet *Reorder from [facility] for eRx and Interaction Alerts*, Taking timolol 2.5 MG/ML Ophthalmic Solution , Notes to Pharmacist: timolol 2.5 MG/ML Ophthalmic SolutionOriginal Medicationtimolol 2.5 MG/ML Ophthalmic Solution *Reorder from [facility] for eRx and Interaction Alerts*, Medication [...] M79.675 4 . U nspecified atherosclerosis of [place] arteries of extremities, bilateral legs - I70.203 Plan: * Treatment: * Follow Up: 9 weeks * Billing Information: * Visit Code: 34159 Office Visit, Est Pt., Level 3. * Procedure Codes: * Electronic signature of DIXIE RAMIREZ DPM on 02/26/2025 at 10:18 AM CDT Sign off status: Pending * Provider: Zara Ramirez DPM Date: 0 01/06/2025 Generated for Ana frias/Mike/Sadie on: 0 02/26/2025 10:18 AM CDT History and Physical Notes * [...]
[2025-02-26 10:40] LABS: Hematocrit 28.7 % (37.0-47.0); Hemoglobin 9.3 g/dL (12.0-15.0); Mean Corpuscular HGB Conc 32.4 g/dl (32-36); Mean Corpuscular Hemoglobin 32.0 pg (26-34); Mean Corpuscular Volume 98.6 fl (80-100); Platelet Count Result 387 k/mm3 (150-375); Red Blood Count 2.91 M/mm3 (4.2-5.4); White Blood Count 6.0 K/mm3 (4.5-10.0)
[2025-02-26 11:20] LABS: Alanine Aminotransferase 60 U/L (6-35); Albumin Level 3.9 g/dL (3.5-5.1); Alkaline Phosphatase 305 U/L (38-126); Anion Gap 8 mmol/L (4-12); Aspartate Amino Transferase 49 U/L (14-36); Bilirubin,Total 0.6 mg/dL (0.2-1.3); Blood Urea Nitrogen 47 mg/dL (7-17); Calcium 9.1 mg/dL (8.4-10.2); Carbon Dioxide 25 mmol/L (22-30); Chloride 96 mmol/L (98-107); Estimated Glomerular Filt Rate 41; Glucose 93 mg/dL (65-110); Magnesium 2.5 mg/dL (1.6-2.3); Potassium 5.9 mmol/L (3.4-5.0); Sodium 129 mmol/L (137-145); Total Protein 8.4 g/dL (6.3-8.2)
[2025-02-26 11:29] LABS: Parathyroid Intact 37.9 pg/mL (14.5-75.2)
[2025-02-26 11:38] LABS: Free T4 Free Thyroxine 1.58 ng/dL (0.78-2.19)
[2025-02-26 11:56] LABS: Thyroid Stimulating Hormone 2.070 uIU/mL (0.465-4.680)
[2025-02-27 15:09] LABS: Thyroglobulin by IMA YES YES
== END 2025-02-26 09:50 | disposition home or self-care (01) ==
PROVIDERS: Visit Provider Internal Medicine
DX: E89.0 Postprocedural hypothyroidism (principal); E11.8 Type 2 diabetes mellitus with unspecified complications; C73 Malignant neoplasm of thyroid gland; M81.0 Age-related osteoporosis without current pathological fracture
CPT/HCPCS: 36415; 80053; 82306; 83735; 83970; 84100; 84432; 84439; 84443; 85027; 86800

== ENCOUNTER 2025-03-13 09:24 | Outpatient (CLI) | payer MEDICARE, SELFPAY ==
--- OUTSIDE RECORDS SUMMARY | 2025-03-13 09:38 | XMS_ITS | Clinical Summary ---
Author Organization [facility] Address [address] [place] [phone] Care Team Providers Care Transmitter Engineer Name Role Phone Ellen Rowley MD [...] total) by mouth daily 12/13/19 25 Active Active Problems Problem Noted Date Diagnosed [...] very moment. The critical access team from [facility] was also attending to the patient. [...] 11:01 AM CDT): I endorse admission to longterm care. The patient is at risk of [...] care. Assessment & Plan (10/01/2024 9:52 AM HHAS): I endorse admission to longterm care. The patient is at risk of [...] off. Assessment & Plan (10/01/2024 10:08 AM HHAS): I have viewed the injury of concern. [...] a.m. Assessment & Plan (10/01/2024 2:24 PM HHAS): Hemoglobin lower but overall stable, H&H 8.2/26.0. [...] appointment with thoracic surgery and GI at [facility]. He will retrieve the dates and times and bring those to our medical team. Assessment & Plan (10/03/2024 12:17 PM HHAS): Continue Jevity 1.5 tube feeding 60 mL/hour through the jejunostomy tube. Discussed with and dietitian. They are considering bolus feedings prior to discharging home. Assessment & Plan (10/01/2024 10:00 AM HHAS): Because of her esophageal achalasia and stenosis [...] daily. Assessment & Plan (10/03/2024 12:17 PM HHAS): Continue Synthroid 112 mcg daily. Assessment & Plan (10/01/2024 9:59 AM HHAS): This is a chronic problem. We will continue levothyroxine 112 mcg daily. 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 Continue the scripting of latanoprost 1 drop in both eyes once daily at bedtime and timolol 1 drop in both eyes daily. Assessment & Plan (10/03/2024 12:19 PM HHAS): We will continue latanoprost and timolol as scripted Assessment & Plan (10/01/2024 10:01 AM HHAS): We will continue scripting of latanoprost 0.005%, [...] follow. Assessment & Plan (10/01/2024 9:59 AM HHAS): Dietary will evaluate and advise. Hemorrhoids with complication 05/12/2021 History of total left knee replacement (TKR) Left-sided abdominal pain of unknown etiology Obesity, Class I, BMI 30-34.9 05/12/2021 Recurrent urinary tract infection 05/12/2021 Abnormal barium swallow 11/20/2020 Overview (05/12/2021): Added automatically from request for surgery [id number] Achalasia of cardia 11/20/2020 Overview (05/12/2021): Added automatically from request for surgery [id number] Assessment & Plan (11/29/2024 2:05 PM CDT): [...] She will have esophageal motility studies at [facility] tomorrow. She will continue jejunostomy tube feedings as followed by dietary. Assessment & Plan (11/26/2024 4:29 PM CDT): She has an appointment at [facility] on Monday of this week for manometry [...] office Assessment & Plan (10/03/2024 12:18 PM HHAS): She now has a follow up appointment scheduled with the proof coin collector and thoracic surgeon. Assessment & Plan (10/01/2024 2:24 PM HHAS): Status post J-tube placement. Tolerating continuous tube [...] Colace. Assessment & Plan (10/01/2024 10:02 AM HHAS): She currently is unable eat. She is [...] (05/12/2021): Added automatically from request for surgery [id number] Graves disease 05/25/2020 Dysphagia 04/17/2020 Overview (05/12/2021): Added automatically from request for surgery [id number] Assessment & Plan (11/24/2024 2:39 PM CDT): [...] intervention. Assessment & Plan (10/01/2024 10:00 AM HHAS): Follow up labs are ordered. Essential hypertension [...] dizziness/lightheadedness). Assessment & Plan (10/02/2024 8:45 AM HHAS): BP remains lower, but pt is asymptomatic. Encouraged continue clear liquid intake, monitor for orthostasis Assessment & Plan (10/01/2024 9:59 AM HHAS): We will monitor serial vital signs for trending. Our goal will be us the systolic blood pressures of 150 and a diastolic blood pressure below 90. Resolved Problems Problem Noted Date Diagnosed Date Resolved Date Pressure injury 11/14/2024 11/14/2024 Anemia 10/22/2024 11/12/2024 Well child examination 05/12/202110/01 Encounters Date Type Department Care Team Description 02/27/2025 2:12 PM CDT - 02/27/2025 11:59 PM CDT Hospital Encounter [facility] [address] [place] [address] Discharge Disposition: Discharge to home or self care 02/06/2025 3:00 PM CDT Office Visit [facility] Infectious Disease [address] [place] [phone] Onesimo Welch MD Mycobacterium avium infection (HCC) (Primary Dx) 02/06/2025 Telephone [facility] Pulmonology [address] [place] [phone] Onesimo Welch MD 01/30/2025 10:30 AM CDT Ancillary Procedure [facility] Cardiology [address] [place] [address] [phone] Tachy-lidia syndrome (HCC); Syncope, unspecified syncope type; Pacemaker; Atrial fibrillation, unspecified type (HCC) 01/30/2025 10:30 AM CDT Office Visit [facility] Cardiology [address] [place] [phone] Sam Young MD Nonrheumatic mitral valve regurgitation (Primary Dx) 01/30/2025 Orders Only [facility] Cardiology [address] [place] [address] [phone] Sam Young MD Sinus node dysfunction (HCC) (Primary Dx); Tachy-lidia syndrome (HCC); Complete heart block (HCC); Pacemaker 01/29/2025 10:45 AM CDT Office Visit [facility] Pulmonology [address] [place] [phone] Javier Pham MD 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); Pulmonary nodule; Abnormal CT of the chest; Cough, unspecified type 01/22/2025 Telephone [facility] Nephrology at [address] [place] [address] Jayden Verde from Last 3 Months Immunizations Immunization Administration [...] Procedure: INSERT TEMPORARY PACEMAKER (PPM) SINGLE LEAD [id number]; Surgeon: Feliciano Peguero MD; Location: [facility]; Service: Cardiovascular; Laterality: N/A; CARDIAC ELECTROPHYSIOLOGY PROCEDURE 10/31/2024 Left Procedure: IMPLANT DUAL CHAMBER PPM SYSTEM W/ DUAL ELECTRODES (GEN AND LEADS, NEW OR REPLACE) [id number]; Surgeon: Feliciano Peguero MD; Location: [facility]; Service: Cardiovascular; Laterality: Left; Medical devices from this surgery are in the Medical Devices section. ENTERIC TUBE INJECTION 11/26/2024 N/A GASTROSTOMY TUBE PLACEMENT 09/24/2024 GASTROSTOMY TUBE REVISION 01/15/2025 MYOTOMY 01/15/2025 Medical History Medical History Date Comments Hypertension Hypercholesteremia Thyroid disease Osteoarthritis Peripheral neuropathy Cancer (HCC) thyroid Type 2 diabetes mellitus Glaucoma Osteopenia Lung nodules History of COVID-19 06/2020; not hospitalized Hiatal hernia Esophageal achalasia history bot ox injection; followed by GI Dysphagia Arthritis Anemia CKD (chronic kidney disease) , stage III (HCC) stage 3b; per EMR Graves disease thyroidectomy GERD (gastroesophageal reflux disease) Hypothyroidism Mycobacterium avium complex Family History Relation Name Status Comments Father Mother Social History Tobacco Use Types Packs/Day Years Used Date Smoking Tobacco: Never Passive Smoke Exposure: Never Smokeless Tobacco: Never Tobacco Cessation:Counseling Given: Not Answered Alcohol Use Standard Drinks/Week Comments Not Currently 0 (1 standard drink = 0.6 oz pur e alcohol) [facility] Utilities Answer Date Recorded In the past 12 months has th e electric, gas, oil, or water company threatened to shut off services in your home? No 10/31/2024 Social Connection and Isolation Panel Answer Date Recorded In a typical week, how many times do you talk on the phone with family, friends, or neighbors? More than three times a week 10/31/2024 How often do you get togethe r with friends or relatives? More than three times a week 10/31/2024 How often do you attend chur ch or baptism services? Never 10/31/2024 Do you belong to [...] time in the past 12 m [facility], were you homeless or living in a assisted (including now)? No 11/05/2024 Personal Safety Answer Date Recorded Have you ever been in or are you currently in a harmful physical or emotional relationship or is someone making you feel afraid or unsafe? Denies 11/26/2024 Comments Unknown Sex and Gender Information Value Date Recorded Sex Assigned at Not on file Legal Sex Female 5:32 PM HHAS Gender Identity Not on file Sexual Orientation [...] history exists Medical Devices Implanted Type Area Post Acute Care Nurse Practitioner Device Identifier Shelf Expiration Date Model / Serial / Lot Knee Components Right: Knee [employer] Active Fixation Steroid Eluting Is 1 Connector Latex Free Sterile Right Atrial Right Atrial Ingevity Plus 59cm 7842 - [id number] Implanted:Qty: 1 on 10/31/2024 by Feliciano Peguero MD at [facility] [employer] 7842 / / [employer] Lead 7841 Endocardial Pacing Mr Is-1 Bipolar Connection 7841 - [id number] - [id number] Implanted:Qty: 1 on 10/31/2024 by Feliciano Peguero MD at [facility] [employer] [id number] 09/09/2026 7841 / [id number] / [employer] Accolade Latitude Nxt Pacesafe Easyview 4.45x5.02cm 2 Chamber Is1 L311 - [id number] - [id number] Implanted:Qty: 1 on 10/31/2024 by Feliciano Peguero MD at [facility] [employer] [id number] 06/12/2026 L311 / [id number] / Procedures Procedure Name Priority Date/Time Associated Diagnosis Comments EGFR STAT 11/30/2024 10:21 AM CDT POCT LIPID PANEL Routine 11/27/2024 9:38 AM CDT Dyslipidemia, goal LDL below 100 HEMOGLOBIN A1C Routine 07/16/2019 7:34 AM HHAS DEXA AXIAL SKELETON BONE DENSITY 1 OR MORE SITES Routine 06/08/2015 2:48 PM HHAS from Last 3 Months or Most Recently Relevant to Health Maintenance Results * eGFR (11/30/2024 10:21 AM CDT) eGFR 74 >=60 mL/min/1. 73 m2 LISA Comment: Interpretive [...] Current interpretive data was last reviewed 2021. [facility], [address] [place] [address]., [address] Blood 11/30/2024 10:2 1 AM CDT 11/30/2024 10:29 AM CDT Emy Cardona MD LAB BLOOD ORDERABLES Final R esult [facility]ISA [address] [facility] [place] [address] * (ABNORMAL) POCT lipid panel (11/27/2024 9:38 [...] Result * Hemoglobin A1c (07/16/2019 7:34 AM HHAS) Hemoglobin A1c % 5.0 4.0 - 5.6 % [facility] Comment: ADA 2016 GUIDELINES: Initial Diagnostic Criteria HbA1c Result: Interpretation: <5.7% Normal 5.7-6.4% At risk for diabetes mellitus >=6.5% Consistent with diabetes mellitus Diabetes monitoring Target value (ADA Recommended) <7% 07/16/2019 7:34 AM HHAS 07/16/2019 7:40 AM HHAS Narrative Resulting Agency Comment CLI Miguel Espinoza MD LAB BLOOD ORDERABLES Final Re sult [facility] [address] [place] [address], [facility] [phone] * Dexa Axial Skeleton Bone Density 1 or 2 Site (06/08/2015 2:48 PM HHAS) Anatomical Region Laterality Modality Body N/A Radiographic Keyla ging 06/08/2015 2:48 PM HHAS Impressions 06/08/2015 4:50 PM HHAS Bone mineral density in the lumbar spine, [...] TB:tb 04:46 PM 04:46 PM BM [EOD] Narrative 06/08/2015 4:50 PM HHAS HISTORY: 65 year old postmenopausal female with given history of primary hyperparathyroidism. Current Height: 62 inches Maximum Height: 63 inches Weight: 253 pounds RISK FACTORS: Chronic antacid use. Hyperparathyroidism. COMPARISON(S): None FLAT POLISHER/MODEL: [employer] (S/N [id number]) FINDINGS: AP lumbar spine L1-L4 Total BMD is 0.918 g/cy7K-fezrz is -1.2 Left Hip Total BMD is 0.771 g/dz3W-apghl is -1.4 Neck BMD is 0.642 g/mt6I-nvtze is -1.9 Left forearm BMD in the radius 33% is 0.559 g/cj9P-wxkbn is -2.2 Procedure Note Provider, MD Colleen - 12/14/2020 HISTORY: 65 year old postmenopausal female with given history of primary hyperparathyroidism. Current Height: 62 inches Maximum Height: 63 inches Weight: 253 pounds RISK FACTORS: Chronic antacid use. Hyperparathyroidism. COMPARISON(S): None FLAT POLISHER/MODEL: [employer] (S/N [id number]) FINDINGS: AP lumbar spine L1-L4 Total BMD is 0.918 g/zh6T-yiyaz is -1.2 Left Hip Total BMD is 0.771 g/mn7V-guotx is -1.4 Neck BMD is 0.642 g/fp2G-urdhu is -1.9 Left forearm BMD in the radius 33% is 0.559 g/ow8M-opuqw is -2.2 IMPRESSION: Bone mineral density in [...] Relevant to Health Maintenance Insurance [employer] [place] [id number] UHC MEDICARE ADVANTAGE [facility] MEDICARE [facility] MEDICARE Advance Directives For more information, please contact: [phone] Documents on File Type Date Recorded Patient Dehydrogenation Supervisor Expl anation Power of Atmospheric Sciences Professor ADVANCE DIRECTIVE 10/18/2024 9:27 AM POLST - Phys Order for PT Preferences ADVANCE DIRECTIVE 09/04/2019 1:16 PM Power of Atmospheric Sciences Professor-Medical ADVANCE DIRECTIVE 07/16/2019 12:00 AM POW ER OF DICE TABLE PERSON MEDICAL * Full Code (Latest Code Status [...] 8:52 PM 12/15/2021 9:07 PM Care Teams Transmitter Engineer Relationship Specialty Start Date End Date Ellen Rowley MD [facility] [place] [address] PCP - General Family Medicine 02/09/22
--- OUTSIDE RECORDS SUMMARY | 2025-03-13 09:38 | XMS_ITS | Encounter Summary ---
Author Organization [facility] Address [address] [place] [address] Care Team Providers Care Director Teen Post Name Role Phone Ellen Rowley MD Primary Care Provider [phone] Reason for Visit * Reason Onset Date Comments Care Management Other 09/10/2024 Initial as sessment/verify face sheet information Encounter Details Date Type Department Care Team (Late st Contact Info) Description 09/10/2024 Telephone [facility] CARE COORDINATION [address] [place] [phone] Mary Ellen Solis, RN Care Management Other [...] care, and heating? Not very hard 09/10/2024 [facility] - Occupational Stress [...] any time in the past 12 m [facility], were you homeless or living in a senior living (including now)? No 09/10/2024 Comments Unknown Sex and Gender Information Value Date Recorded Sex Assigned at Not on file Legal Sex Female 10:45 PM SUPERVISOR PILE [employer]IVING Gender Identity Not on file Sexual Orientation [...] Entry Date Author No 09/09/2024 3:15 PM SUPERVISOR [employer]LE [employer]IV[employer] Jose Locke RN documented in this encounter Plan of Treatment Not on file documented as of this encounter Visit Diagnoses Not on filedocumented in this encounter Care Teams Director Teen Post Relationship Specialty Start Date End Date Ellen Rowley MD [address] [place] [address] PCP - General Family Medicine 07/31/24 documented as of this encounter
--- OUTSIDE RECORDS SUMMARY | 2025-03-13 09:38 | XMS_ITS | Clinical Summary ---
Author Organization [facility] Address [address] [place] [address] Care Team Providers Care Software Security Architect Name Role Phone Ellen Rowley MD Primary Care Provider [phone] Source Comments [facility] Affiliates and Associated Physician Practices is amultiple site organization consisting of ambulatory clinics and hospital sitesin [place], [place], [place] and [place]. This disclosure is being madepursuant to the Care Everywhere program and may not contain all information available regarding this patient. Last updated 18.[facility] Allergies Active Allergy Reactions Criticality Noted Date [...] daily 60 packet 2 09/27/2024 12:10 PM MANAGER WATER WASTEWATER 09/27/19 25 Active levothyroxine (Synthroid) 112 MCG tablet 1 (one) tablet by Enteral Tube route once daily 30 tablet 09/27/2024 12:10 PM MANAGER WATER WASTEWATER 09/27/19 25 Active Additional Information Patient not [...] morning and evening meal Active nystatin (Mycostatin) 214528 UNIT/GM powder Apply to affected area 3 [...] 24 hours. 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 Achalasia 09/09/2024 T2DM (type 2 diabetes mellitus) 09/09/2024 HTN (hypertension) 09/09/2024 Encounters Date Type Department Care Team Description 02/07/2025 9:00 AM CDT Office Visit [facility] [address] [address] Julieta Johnston, DIRECTOR OF LITIGATION-LOGGING EQUIPMENT OPERATOR Achalasia (Primary Dx) 01/15/2025 11:40 AM CDT Anesthesia Event [facility] [address] [place] [address] Yahir Hameed MD 01/15/2025 11:14 AM CDT - 01/15/2025 2:14 PM CDT Surgery [facility] [address] [place] [address] Roland Miller MD ROBOTIC ASSISTED ESOPHAGOMYOTOMY (HELLER) 01/15/2025 8:37 AM CDT - 01/17/2025 3:29 PM CDT Hospital Encounter 1E Surg - [address] [address] Roland Miller MD Cardiothoracic Surgery Discharge Disposition: Home or Self Care 01/15/2025 Travel 01/09/2025 7:31 AM CDT - 01/09/2025 11:59 PM CDT Hospital Encounter [facility] [address] [place] [address] Roland Miller MD Discharge Disposition: Home or Self Care 01/09/2025 Travel 01/03/2025 10:00 AM CDT Office Visit [facility] [address] [address] Roland Miller MD Achalasia (Primary Dx) 12/31/2024 10:27 AM CDT - 12/31/2024 11:59 PM CDT Hospital Encounter [facility] - Outside Imaging Discharge Disposition: Home or Self Care 12/31/2024 10:27 AM CDT - 12/31/2024 11:59 PM CDT Hospital Encounter [facility] - Outside Imaging Discharge Disposition: Home or Self Care from Last 3 Months Immunizations Immunization Administration [...] and heating? Not hard at all 01/16/2025 [facility] [place] [facility] Occupat ional Health - Occupational Stress [...] [facility], were you homeless or living in a fpc (including now)? No 01/16/2025 Comments Unknown Sex and Gender Information Value Date Recorded Sex Assigned at Not on file Legal Sex Female 10:45 PM MANAGER WATER WASTEWATER Gender Identity Not on file Sexual Orientation Not on file Last Filed Vital Signs Vital Sign Reading Time Taken Comments Blood Pressure 115/75 02/07/2025 8:55 AM CDT Pulse 76 02/07/2025 8:55 AM CDT Temperature 36.6 C (97.9 F) 01/17/2025 8:23 AM CDT Respiratory Rate 16 01/17/2025 8:23 AM CDT Oxygen Saturation 89% 02/07/2025 8:55 AM CDT Inhaled Oxygen Concentration 21% 06/2025 11:37 AM MANAGER WATER WASTEWATER Weight 58.9 kg (129 lb 12.8 oz) [...] 1-dose 75+ series) 2023 COVID-19 VACCINE ( - season) 2024 10/10/2020, 09/18/2020 DEPRESSION SCREENING [...] TUBE NOTE Routine 01/15/2025 12:23 PM CDT PA ED EGD FLEX TRANSORAL DX 01/15/2025 11:19 AM CDT Achalasia Case Notes 01/15/25 2nd case 150 minutes Stop ELIQUIS 3 days prior to procedure Special Needs NEEDS GENERAL CAR SUPERVISOR YARD, DAVINCI- NO REP, O.R ENDO CART / ## ATTN. ANESTHESIA: PATIENT HAS A [employer] PACEMAKER PER PRE-TESTING (ELLEN)--01/09 KW ## PA LAP MYOTOMY, HELLER 01/15/2025 11:19 AM CDT Achalasia Case Notes 01/15/25 2nd case 150 minutes Stop ELIQUIS 3 days prior to procedure Special Needs NEEDS GENERAL CAR SUPERVISOR YARD, DAVINCI- NO REP, O.R ENDO CART / [...] Pre-Op 01/09/2025 7:42 AM CDT Preprocedural examination HEMOGLOBIN A1C Routine 09/10/2024 2:04 AM MANAGER WATER WASTEWATER from Last 3 Months or Most Recently [...] of12 resultswithin the time period is included. Pathologist [facility] Glucose WB/POC 133(H) 70 - 99 mg/dL 01/17/2025 1:17 PM CDT [facility] Specimen Type Arterial/C apillary 01/17/2025 1:17 PM CDT [facility] Blood BLOOD SPECIMEN / Unknown 01/17/2025 1:07 PM CDT 01/17/2025 1:17 PM CDT us Roland Miller MD LAB - POINT OF CARE ORDERABLES Final Result [facility] [address] [place] [address] * (ABNORMAL) CBC W AUTO DIFFERENTIAL (01/17/2025 3:19 AM CDT) Only the most recent of3 resultswithin the time period is included. WBC 3.8(L) 4.0 - 10.7 x10E9/L 01/17/2025 4:00 AM CDT [facility] RBC Count 2.24(L) 3.90 - 5.20 x10E12/L 01/17/2025 4:00 AM CDT [facility] Hemoglobin 7.5(L) 11.9 - 15.8 g/dL 01/17/2025 4:00 AM CDT [facility] Hematocrit 23.2(L) 34.8 - 46.1 % 01/17/2025 4:00 AM [facility] MCV 103.6(H) 80.0 - 98.0 fL 01/17/2025 4:00 AM [facility] MCH 33.5 26.7 - 33.6 pg 01/17/2025 4:00 AM [facility] MCHC 32.3 31.7 - 36.3 g/dL 01/17/2025 4:00 AM [facility] RDW-CV 15.1(H) 11.3 - 14.8 % 01/17/2025 4:00 AM [facility] Platelet Count 156 150 - 420 x10E9/L 01/17/2025 4:00 AM [facility] MPV 11.6(H) 7.8 - 11.4 fL 01/17/2025 4:00 AM [facility] Neutrophil % 49.0 41.0 - 74.0 % 01/17/2025 4:00 AM [facility] Lymphocyte % 37.3 17.0 - 47.0 % 01/17/2025 4:00 AM [facility] Monocyte % 10.8 3.0 - 11.0 % 01/17/2025 4:00 AM [facility] Eosinophil % 2.1 0.0 - 7.0 % 01/17/2025 4:00 AM [facility] Basophil % 0.5 0.0 - 1.6 % 01/17/2025 4:00 AM [facility] Immature Granulocytes % 0.3 0.0 - 1.0 % 01/17/2025 4:00 AM [facility] Neutrophil Absolute 1.87 1.60 - 7.50 x10E9/L 01/17/2025 4:00 AM [facility] Lymphocyte Absolute 1.42 1.00 - 4.40 x10E9/L 01/17/2025 4:00 AM [facility] Monocyte Absolute 0.41 0.15 - 1.00 x10E9/L 01/17/2025 4:00 AM [facility] Eosinophil Absolute 0.08 0.00 - 0.60 x10E9/L 01/17/2025 4:00 AM CDT [facility] Basophil Absolute 0.02 0.00 - 0.13 x10E9/L 01/17/2025 4:00 AM T [facility] Blood BLOOD SPECIMEN / Unknown Lab Venipuncture / Unknown 01/17/2025 3:19 AM CDT 01/17/2025 3:53 AM CDT us Roland Miller MD LAB - HEMATOLOGY ORDERABLES Fi nal Result [facility] [address] [place] [address] * (ABNORMAL) BASIC METABOLIC PANEL (CALCIUM TOTAL) (01/17/2025 3:19 AM CDT) Only the most recent of2 resultswithin the time period is included. Glucose 103(H) 70 - 99 mg/dL 01/17/2025 4:22 AM [facility] Sodium 139 136 - 145 mmol/L 01/17/2025 4:22 AM [facility] Potassium 4.6 3.5 - 5.1 mmol/L 01/17/2025 4:22 AM [facility] Chloride 103 98 - 107 mmol/L 01/17/2025 4:22 AM [facility] CO2 32(H) 22 - 29 mmol/L 01/17/2025 4:22 AM [facility] Calcium 8.6 8.4 - 10.4 mg/dL 01/17/2025 4:22 AM [facility] Anion Gap 4(L) 6 - 16 mmol/L 01/17/2025 4:22 AM [facility] BUN 48(H) 7 - 26 mg/dL 01/17/2025 4:22 AM [facility] Creatinine 1.01 0.57 - 1.11 mg/dL 01/17/2025 4:22 AM [facility] eGFR by CKD-EPI 58(L) >=90 mL/min/1.7 3 m2 01/17/2025 4:22 AM [facility] Blood BLOOD SPECIMEN / Unknown Lab Venipuncture / Unknown 01/17/2025 3:19 AM CDT 01/17/2025 3:53 AM CDT Roland Miller MD LAB - CHEMISTRY ORDERABLES Fin al Result Performing Organization Address [facility] de Phone Number [facility] [address] [place] [id number] * PHOSPHORUS BLOOD (01/17/2025 3:19 AM CDT) Only the most recent of2 resultswithin the time period is included. Phosphorus 3.5 2.5 - 4.5 mg/dL 01/17/2025 4:22 AM CDT [facility] Blood BLOOD SPECIMEN / Unknown Lab Venipuncture / Unknown 01/17/2025 3:19 AM CDT 01/17/2025 3:53 AM CDT Roland Miller MD LAB - CHEMISTRY ORDERABLES Fin al Result Performing Organization Address [facility] de Phone Number [facility] [address] [place] [phone] * MAGNESIUM BLOOD (01/17/2025 3:19 AM CDT) Only the most recent of2 resultswithin the time period is included. Magnesium 2.0 1.6 - 2.6 mg/dL 01/17/2025 4:22 AM CDT [facility] Blood BLOOD SPECIMEN / Unknown Lab Venipuncture / Unknown 01/17/2025 3:19 AM CDT 01/17/2025 3:53 AM CDT Roland Miller MD LAB - CHEMISTRY ORDERABLES Fin al Result Performing Organization Address [facility] de Phone Number [facility] [address] [place] [phone] * FL Esophagram (01/16/2025 9:31 AM CDT) [...] Dictated by Bran Frias MD I, Devon Medaows MD have personally reviewed and interpreted this [...] Event Date/Time: 01/15/2025 11:54 AM Procedure: intubation ([id number]) Procedure Section: Sedation: under general anesthesia. Indications [...] Provider #2: Aishwarya Garcia, Performed the procedure. Yahir Hameed MD GENERAL ANESTHESIA EMERITA العلي Final Result * TYPE + SCREEN PANEL (01/15/2025 9:20 AM CDT) Only the most recent of2 resultswithin the time period is included. ABO Rh A POS 01/15/2025 10:13 AM CDT [facility] Comment:History checked. Antibody Screen NEG 10:13 AM T [facility] Blood Bank BLOOD SPECIMEN / Unknown Venipuncture / Unknown 01/15/2025 9:20 AM CDT 01/15/2025 9:23 AM CDT us Rolnad Miller MD LAB - BLOOD BANK ORDERABLES Fi nal Result Performing Organization Address [facility] Co de Phone Number [facility] [address] [place] [address], [facility] [phone] * EKG 12-Lead (01/09/2025 7:56 AM CDT) Ventricular Rate 105 BPM [facility] Atrial Rate 210 BPM [facility] QRS Duration ms 102 ms SM MUSE Q-T Interval ms 312 ms [facility] QTC Calculation (Bezet) 412 ms SM MUSE Calculated R [place] -46 degrees SM MUSE Calculated T [place] 7 degrees [facility] Interpretation EKG ATRIAL FLUTTER [...] HAS SHORTENED Confirmed by MD STEPHANIE, ALEJANDRA ([id number]) on 01/09/2025 5:04:27 PM [facility] 01/09/2025 7:56 AM CDT 01/09/2025 5:04 PM CDT us Roland Miller MD ECG ORDERABLES Edited Result - Final Performing Organization Address [facility] Co de Phone Number [facility] * URINALYSIS REFLEX MICROSCOPIC REFLEX CULTURE (01/09/2025 7:42 AM CDT) Color UA Yellow Yellow, Straw 01/09/2025 8:07 AM CDT [facility] Clarity UA Clear Clear 01/09/2025 8:07 AM CDT [facility] Glucose UA Normal Normal 01/09/2025 8:07 AM CDT [facility] Bilirubin UA Negative Negative 01/09/2025 8:07 AM CDT [facility] Ketone UA Negative Negative 01/09/2025 8:07 AM CDT [facility] Specific [place] UA 1.013 1.005 - 1.030 01/09/2025 8:07 AM CDT [facility] Blood UA Negative Negative 01/09/2025 8:07 AM CDT [facility] pH UA 6.5 5.0 - 8.0 01/09/2025 8:07 AM CDT [facility] Protein UA Negative Negative 01/09/2025 8:07 AM CDT [facility] Urobilinogen UA Normal Normal mg/dL 01/09/2025 8:07 AM CDT [facility] Nitrite UA Negative Negative 01/09/2025 8:07 AM CDT [facility] Leukocyte Esterase UA Negative Negative 01/09/2025 8:07 AM CDT [facility] Reflex Status Culture not indicated 01/09/2025 8:07 AM CDT [facility] Urine Microscopy Urine microscopy not indicated 01/09/2025 8:07 AM CDT [facility] Urine URINE SPECIMEN OBTAINED BY CLEAN CATCH PROCEDURE / Unknown Collection / Unknown 01/09/2025 7:42 AM CDT 01/09/2025 7:59 AM CDT Narrative [facility] - 01/09/2025 8:07 AM CDT Roland Miller MD LAB - URINALYSIS ORDERABLES Fi nal Result Performing Organization Address [facility] de Phone Number [facility] [address] [place] [address] * PTT (01/09/2025 7:42 AM CDT) PTT 35.5 23.0 - 38.4 sec 01/09/2025 8:13 AM CDT [facility] Blood BLOOD SPECIMEN / Unknown Venipuncture / Unknown 01/09/2025 7:42 AM CDT 01/09/2025 7:59 AM CDT Narrative [facility] - 01/09/2025 8:13 AM CDT Heparin Therapeutic Range for PTT: 69.0 - 110.0 seconds. Roland Miller MD LAB - COAGULATION ORDERABLES F inal Result Performing Organization Address City/[facility]/ZIP Co de Phone Number [facility] [address] [place] [address] * (ABNORMAL) PT-INR (01/09/2025 7:42 AM CDT) PT 15.7(H) 12.1 - 14.8 sec 01/09/2025 8:13 AM CDT [facility] INR 1.3(H) 0.9 - 1.1 01/09/2025 8:13 AM CDT [facility] Blood BLOOD SPECIMEN / Unknown Venipuncture / Unknown 01/09/2025 7:42 AM CDT 01/09/2025 7:59 AM CDT [facility] - 01/09/2025 8:13 AM CDT Conventional Warfarin Anticoagulant Therapy: INR Reference Range: 2.0-3.0 Intensive Warfarin Anticoagulant Therapy: INR Reference Range: 2.5-3.5 Roland Miller MD LAB - COAGULATION ORDERABLES F inal Result [facility] [address] [place] [address] * (ABNORMAL) COMPREHENSIVE METABOLIC PANEL (01/09/2025 7:42 AM CDT) Pathologist [facility] Glucose 112(H) 70 - 99 mg/dL 01/09/2025 8:25 AM CDT [facility] Sodium 135(L) 136 - 145 mmol/L 01/09/2025 8:25 AM CDT [facility] Potassium 4.0 3.5 - 5.1 mmol/L 01/09/2025 8:25 AM CDT [facility] Chloride 95(L) 98 - 107 mmol/L 01/09/2025 8:25 AM CDT [facility] CO2 30(H) 22 - 29 mmol/L 01/09/2025 8:25 AM CDT [facility] Calcium 10.2 8.4 - 10.4 mg/dL 01/09/2025 8:25 AM CDT [facility] Anion Gap 10 6 - 16 mmol/L 01/09/2025 8:25 AM CDT [facility] BUN 82(H) 7 - 26 mg/dL 01/09/2025 8:25 AM CDT [facility] Creatinine 1.15(H) 0.57 - 1.11 mg/dL 01/09/2025 8:25 AM CDT [facility] Alkaline Phosphatase 148 40 - 150 U/L 01/09/2025 8:25 AM CDT [facility] ALT 71(H) 6 - 57 U/L 01/09/2025 8:25 AM T [facility] AST 58(H) 10 - 48 U/L 01/09/2025 8:25 AM T [facility] Protein Total 8.4(H) 6.4 - 8.3 gm/dL 01/09/2025 8:25 AM CDT [facility] Albumin 3.6 3.1 - 4.5 gm/dL 01/09/2025 8:25 AM [facility] Bilirubin Total 0.5 0.2 - 1.2 mg/dL 01/09/2025 8:25 AM [facility] eGFR by CKD-EPI 49(L) >=90 mL/min/1.7 3 m2 01/09/2025 8:25 AM [facility] Blood BLOOD SPECIMEN / Unknown Venipuncture / Unknown 01/09/2025 7:42 AM CDT 01/09/2025 8:00 AM T Roland Miller MD LAB - CHEMISTRY ORDERABLES Fin al Result Performing Organization Address City/State/[facility] Co de Phone Number [facility] [address] [place] [address] * HEMOGLOBIN A1C (09/10/2024 2:04 AM [facility]) Hemoglobin A1c 4.9 <=5.6 % 09/10/2024 8:[address] [facility] Estimated Average Glucose 94 mg/dL 09/10/2024 8:[address] [facility] Comment: HbA1c Interpretation: Normal : < 5.7% Pre-diabetes: 5.7-6.4% Diabetes: Equal to or greater than 6.5% Test results diagnostic of diabetes should be repeated for confirmation. Treatment target values recommended by ADA and other clinical organizations should be used to evaluate metabolic control in patients. Reference: [place] [employer], Standards of Care in Diabetes -2020 In patients 70 years and older consider HbA1c target range of 7.0-7.5% (Reference: Harsh Stanley et al. JAMDA. 2012) The Sebia assay for the measurement of HbA1c is a National Glycohemoglobin Standardization Program (NGSP) certified method. Blood BLOOD SPECIMEN / Unknown Venipuncture / Unknown 09/10/2024 2:04 AM MANAGER WATER WASTEWATER 09/10/2024 2:14 AM MANAGER WATER WASTEWATER us Jerel Ceja MD LAB - CHEMISTRY ORDERABLES F inal Result [id number] [place] [address], [facility] [phone] from Last 3 Months or Most Recently Relevant to Health Maintenance Insurance [facility] MEDICARE ADV Advance Directives * Full Code (Latest Code Status on File) Date Activated Date Inactivated Comments 01/15/2025 2:50 PM 01/17/2025 4:34 PM * Full Code Date Activated Date Inactivated Comments 09/09/2024 3:24 PM 09/27/2024 3:43 PM Care Teams Software Security Architect Relationship Specialty Start Date End Date Ellen Rowley MD [address] [place] [address] PCP - General Family Medicine 07/31/24
--- OUTSIDE RECORDS SUMMARY | 2025-03-13 09:38 | XMS_ITS | Clinical Summary ---
Author Organization [facility] Address [address] [place] [address] Care Team Providers Care Program Writer Name Role Phone Unavailable Primary Care Provider Unavailabl e Social History Tobacco Use Types Packs/Day Years Used Date Smoking Tobacco: Never Assessed Comments Unknown Sex and Gender Information Value Date Recorded Sex Assigned at Not on file Legal Sex Female 11:01 AM HORN PLAYER Gender Identity Not on file Sexual Orientation [...]
[2025-03-13 10:30] LABS: Alanine Aminotransferase 57 U/L (6-35); Albumin Level 3.9 g/dL (3.5-5.1); Alkaline Phosphatase 250 U/L (38-126); Anion Gap 8 mmol/L (4-12); Aspartate Amino Transferase 58 U/L (14-36); Bilirubin,Total 0.5 mg/dL (0.2-1.3); Blood Urea Nitrogen 71 mg/dL (7-17); Calcium 9.0 mg/dL (8.4-10.2); Carbon Dioxide 26 mmol/L (22-30); Chloride 96 mmol/L (98-107); Estimated Glomerular Filt Rate 35; Glucose 111 mg/dL (65-110); Potassium 5.1 mmol/L (3.4-5.0); Sodium 130 mmol/L (137-145); Total Protein 8.3 g/dL (6.3-8.2)
== END 2025-03-13 09:25 | disposition home or self-care (01) ==
LOC: ANHLAB 09:25
PROVIDERS: Visit Provider Internal Medicine
DX: E89.0 Postprocedural hypothyroidism (principal); C73 Malignant neoplasm of thyroid gland; M81.0 Age-related osteoporosis without current pathological fracture
CPT/HCPCS: 36415; 80053

== ENCOUNTER 2025-05-16 09:13 | Outpatient (CLI) | payer MEDICARE, SELFPAY ==
--- OUTSIDE RECORDS SUMMARY | 2024-08-26 03:10 | XMS_ITS ---
Author Organization [facility] Address [address] [place], [place] [id number] Care Team Providers Care Ged Tutor Name Role Phone DIXIE RAMIREZ Unavailable [phone] Ellen Rowley Unavailable Unavailable Allergies Allergen (clinical drug ingredient) Drug/Non Drug Allergy documented on EMR Reaction Allergy Type Onset Date Status cefadroxil Duricef (uncoded) Unknown Allergy 12/30/2014 active REASON FOR VISIT *General care Medications Medication SIG (Take, Route, Frequency, Duration) Notes Start Date End Date Status latanoprost 0.05 MG/ML Ophthalmic Solution latanoprost 0.05 MG/ML Ophthalmic SolutionOriginal Medicationlatanoprost 0.05 MG/ML Ophthalmic Solution *Reorder from [employer] for eRx and Interaction Alerts* 12/30/2014 Active metformin hydrochloride 500 MG Oral Tablet ORAL metformin hydrochloride 500 MG Oral TabletOriginal Medicationmetformin hydrochloride 500 MG Oral Tablet *Reorder from [employer] for eRx and Interaction Alerts* 12/30/2014 Active timolol 2.5 MG/ML Ophthalmic Solution timolol 2.5 MG/ML Ophthalmic SolutionOriginal Medicationtimolol 2.5 MG/ML Ophthalmic Solution *Reorder from [employer] for eRx and Interaction Alerts* 12/30/2014 Active Lisinopril 40 MG Oral Tablet ORAL lisinopril 40 MG Oral TabletOriginal Medicationlisinopril 40 MG Oral Tablet *Reorder from [employer] for eRx and Interaction Alerts* 12/30/2014 Active Carvedilol 6.25 MG Oral Tablet ORAL carvedilol 6.25 MG Oral TabletOriginal Medicationcarvedilol 6.25 MG Oral Tablet *Reorder from [employer] for eRx and Interaction Alerts* 12/30/2014 Active atorvastatin 10 MG Oral Tablet ORAL atorvastatin 10 MG Oral TabletOriginal Medicationatorvastatin 10 MG Oral Tablet *Reorder from [employer] for eRx and Interaction Alerts* 12/30/2014 Active esomeprazole 40 MG Delayed Release Oral Capsule [Nexium] ORAL esomeprazole 40 MG Delayed Release Oral Capsule [Nexium]Original Medicationesomeprazole 40 MG Delayed Release Oral Capsule [Nexium] *Reorder from [employer] for eRx and Interaction Alerts* 12/30/2014 Active 24 HR glipizide 10 MG Extended Release Oral Tablet ORAL 24 HR glipizide 10 MG Extended Release Oral TabletOriginal [id number] HR glipizide 10 MG Extended Release Oral Tablet *[facility] and Interaction Alerts* 12/30/2014 Active Encounters Encounter Location Date Provider Diagnosis [facility] [address] [facility] [address] [place], [place] [address] 08/26/2024 DIXIE RAMIREZ Fungal infection of nail B35.1 ; Pain in right toe(s) M79.674 ; Pain in left toe(s) M79.675 and Unspecified atherosclerosis of [place] arteries of extremities, bilateral legs I70.203 Assessments Encounter Date Diagnosis (ICD Code) Assessment Notes Treatment Notes Treatment Clinical Notes Section Notes 08/26/2024 Fungal infection of nail (ICD-10 - B35.1) 08/26/2024 Pain in right toe(s) (ICD-10 - M79.674) 08/26/2024 Pain in left toe(s) (ICD-10 - M79.675) 08/26/2024 Unspecified atherosclerosis of [place] arteries of extremities, bilateral legs (ICD-10 - [...] Follow Up: 9 weeks, Reason: Provider Name:DIXIE Jenn RAMIREZ BERNIE, 05/19/2025 10:20:00 AM, [address], [place] [address], [place], [place], [id number], Progress Notes * JAYSON LOPEZ EDOB:1950 (75 yo F)Acc No.[id number]:08/26/2024 Patient: JAYSON LINO Provider: Zara Ramirez DPM :1950 A ge:74 Y S ex:Female Date:08/26/2024 Address:[address] [place], [place] [id number] Subjective: * Chief Complaints: * 1 . *General care. * HPI: H PI: General care P atient presents to the office for diabetic foot care. Patient states that their nails are thickened, elongated and painful. Patient states that it is aggravated by shoe gear. Onset is gradual., Patient denies taking prescription blood thinners but does take a daily aspirin., Date last seen by Dr. Rowley was 01/2024., Initials [facility]. * ROS: G eneral / Constitutional: Patient denies c hange in appetite, fatigue, chills, fever.? C ardiovascular: Chest pain d enies. N eurologic: Loss of use of extremity d enies. * Medical History: * Medications: T aking Lisinopril 40 MG Oral Tablet ORAL , Notes to Pharmacist: lisinopril 40 MG Oral TabletOriginal Medicationlisinopril 40 MG Oral Tablet *Reorder from [facility] for eRx and Interaction Alerts*, Taking Carvedilol 6.25 MG Oral Tablet ORAL , Notes to Pharmacist: carvedilol 6.25 MG Oral TabletOriginal Medicationcarvedilol 6.25 MG Oral Tablet *Reorder from [facility] for eRx and Interaction Alerts*, Taking 24 HR glipizide 10 MG Extended Release Oral Tablet ORAL , Notes to Pharmacist: 24 HR glipizide 10 MG Extended Release Oral TabletOriginal Rebjzptyen02 HR glipizide 10 MG Extended Release Oral Tablet *Reorder from [facility] for eRx and Interaction Alerts*, Taking atorvastatin 10 MG Oral Tablet ORAL , Notes to Pharmacist: atorvastatin 10 MG Oral TabletOriginal Medicationatorvastatin 10 MG Oral Tablet *Reorder from [facility] for eRx and Interaction Alerts*, Taking esomeprazole 40 MG Delayed Release Oral Capsule [Nexium] ORAL , Notes to Pharmacist: esomeprazole 40 MG Delayed Release Oral Capsule [Nexium]Original Medicationesomeprazole 40 MG Delayed Release Oral Capsule [Nexium] *Reorder from [facility] for eRx and Interaction Alerts*, Taking latanoprost 0.05 MG/ML Ophthalmic Solution , Notes to Pharmacist: latanoprost 0.05 MG/ML Ophthalmic SolutionOriginal Medicationlatanoprost 0.05 MG/ML Ophthalmic Solution *Reorder from [facility] for eRx and Interaction Alerts*, Taking metformin hydrochloride 500 MG Oral Tablet ORAL , Notes to Pharmacist: metformin hydrochloride 500 MG Oral TabletOriginal Medicationmetformin hydrochloride 500 MG Oral Tablet *Reorder from [facility] for eRx and Interaction Alerts*, Taking timolol 2.5 MG/ML Ophthalmic Solution , Notes to Pharmacist: timolol 2.5 MG/ML Ophthalmic SolutionOriginal Medicationtimolol 2.5 MG/ML Ophthalmic Solution *Reorder from [facility] for eRx and Interaction Alerts*, Medication List reviewed and reconciled with the patient * Allergies: D uricef: Allergy - Onset Date 12/30/2014. Objective: * Vitals: * Examination: P hysical Examination: Gen: T [...] M79.675 4 . U nspecified atherosclerosis of [place] arteries of extremities, bilateral legs - I70.203 Plan: * Treatment: * Follow Up: 9 weeks * Billing Information: * Visit Code: 67853 Office Visit, Est Pt., Level 3. * Procedure Codes: * Electronic signature of DIXIE RAMIREZ DPM on 05/16/2025 at 09:38 AM CDT Sign off status: Pending * Provider: Zara Ramirez DPM Date: 0 08/26/2024 Generated for Ana frias/Mike/Sadie on: 09:38 AM CDT History and Physical Notes * HPI (History [...]
--- OUTSIDE RECORDS SUMMARY | 2024-11-25 03:20 | XMS_ITS ---
Author Organization [facility] Address [address] [place], [place] [address] Care Team Providers Care Engineering Administrator Name Role Phone DIXIE RAMIREZ Unavailable [phone] Ellen Rowley Unavailable Unavailable REASON FOR VISIT *General care Encounters Encounter Location Date Provider Diagnosis [facility] [address] [place], [place] [phone] 11/25/2024 DIXIE RAMIREZ Plan Of Treatment Next Appt Details Provider Name:DIXIE GIBBS, 05/19/2025 10:20:00 AM, [address], [place], [place], [address], Progress Notes * JAYSON LOPEZ EDOB:1950 (75 yo F)Acc No.[id number]:11/25/2024 Patient: JAYSON LINO Provider: Zara Ramirez DPM :1950 A ge:74 Y S ex:Female Date:11/25/2024 Address:[address] [place], [place] [phone] Subjective: * Chief Complaints: * 1 . *General care. * Medical History: Objective: * Vitals: Assessment: Plan: * Treatment: * Billing Information: * Visit Code: * Procedure Codes: * Electronic signature of DIXIE RAMIREZ DPM on 05/16/2025 at 09:38 AM CDT Sign off status: Pending * Provider: Zara Ramirez, MARTINAM Date: 0 11/25/2024 Generated for Ana frias/Mike/Sadie on: 1 09:38 AM CDT
--- OUTSIDE RECORDS SUMMARY | 2025-01-06 06:10 | XMS_ITS ---
Author Organization [facility] Address [address] [place], [place] [id number] Care Team Providers Care Cafe Or Restaurant Manager Name Role Phone DIXIE RAMIREZ Unavailable [phone] Ellen Rowley Unavailable Unavailable Allergies Allergen (clinical [...] Medicationatorvastatin 10 MG Oral Tablet *Reorder from [email or web address] for eRx and Interaction Alerts* 12/30/2014 Active timolol 2.5 MG/ML Ophthalmic Solution timolol 2.5 MG/ML Ophthalmic SolutionOriginal Medicationtimolol 2.5 MG/ML Ophthalmic Solution *Reorder from [email or web address] for eRx and Interaction Alerts* 12/30/2014 Active metformin hydrochloride 500 MG Oral Tablet ORAL metformin hydrochloride 500 MG Oral TabletOriginal Medicationmetformin hydrochloride 500 MG Oral Tablet *Reorder from [email or web address] for eRx and Interaction Alerts* 12/30/2014 Active latanoprost 0.05 MG/ML Ophthalmic Solution latanoprost 0.05 MG/ML Ophthalmic SolutionOriginal Medicationlatanoprost 0.05 MG/ML Ophthalmic Solution *Reorder from [email or web address] for eRx and Interaction Alerts* 12/30/2014 Active esomeprazole 40 MG Delayed Release Oral Capsule [Nexium] ORAL esomeprazole 40 MG Delayed Release Oral Capsule [Nexium]Original Medicationesomeprazole 40 MG Delayed Release Oral Capsule [Nexium] *Reorder from [employer] for eRx and Interaction Alerts* 12/30/2014 Active Lisinopril 40 MG Oral Tablet ORAL lisinopril 40 MG Oral TabletOriginal Medicationlisinopril 40 MG Oral Tablet *Reorder from [facility] for eRx and Interaction Alerts* 12/30/2014 Active 24 HR glipizide 10 MG Extended Release Oral Tablet ORAL 24 HR glipizide 10 MG Extended Release Oral TabletOriginal Nsbjrctnso12 HR glipizide 10 MG Extended Release Oral Tablet *Reorder from [employer] for eRx and Interaction Alerts* 12/30/2014 Active Carvedilol 6.25 MG Oral Tablet ORAL carvedilol 6.25 MG Oral TabletOriginal Medicationcarvedilol 6.25 MG Oral Tablet *Reorder from [facility] for eRx and Interaction Alerts* 12/30/2014 Active Vital Signs Height 63.00 in 01/06/2025 Weight 150 lbs 01/06/2025 BMI 26.57 kg/m2 01/06/2025 Height-cm 160.02 cm 01/06/2025 Weight-kg 68.04 kg 01/06/2025 Encounters Encounter Location Date Provider Diagnosis [facility] [address] [facility] [address] [place], [place] [id number] 01/06/2025 DIXIE RAMIREZ Fungal infection of nail B35.1 ; Pain in right toe(s) M79.674 ; Pain in left toe(s) M79.675 and Unspecified atherosclerosis of [place] arteries of extremities, bilateral legs I70.203 Assessments Encounter Date Diagnosis (ICD Code) Assessment Notes Treatment Notes Treatment Clinical Notes Section Notes 01/06/2025 Fungal infection of nail (ICD-10 - B35.1) 01/06/2025 Pain in right toe(s) (ICD-10 - M79.674) 01/06/2025 Pain in left toe(s) (ICD-10 - M79.675) 01/06/2025 Unspecified atherosclerosis of [place] arteries of extremities, bilateral legs (ICD-10 - [...] Up: 9 weeks, Reason: Provider Name:DIXIE GIBBS, 05/19/2025 10:20:00 AM, [address] [facility] [address], [place], [place], [id number], Progress Notes * JESSICAYARELISET EDOB:1950 (75 yo F)Acc No.[id number]:01/06/2025 Patient: JAYSON LINO Provider: Zara Ramirez DPM :1950 A ge:74 Y S ex:Female Date:01/06/2025 Address:[address] [place], [place] [id number] Subjective: * Chief Complaints: * 1 . [...] of extremity d enies. * Medical History: D iabetic. * Surgical History: D enies Past Surgical History. * Hospitalization/Major Diagno stic Procedure: D enies Past Hospitalization. * Family History: F ather: PRN - Father: :: Arthritis,,known absent , :: Cardiovascular disease,,known absent .?Mother: PRN - Mother: :: Neurological disorder,,known absent , :: Pneumonia,,known absent , :: Arthritis,,known absent . B rother: SIB - Brother: :: Back Problem,,known absent , :: Hypertension,,known absent , :: Diabetes,,known absent , :: Arthritis,,known absent . S ister: SIB - Sister: . * Social History: M igrated Social History: M igrated Social History: Smoking Status : Never smoked , History of tobacco use :. * Medications: T aking Lisinopril 40 MG Oral Tablet ORAL , Notes to Pharmacist: lisinopril 40 MG Oral TabletOriginal Medicationlisinopril 40 MG Oral Tablet *Reorder from [facility] for eRx and Interaction Alerts*, Taking Carvedilol 6.25 MG Oral Tablet ORAL , Notes to Pharmacist: carvedilol 6.25 MG Oral TabletOriginal Medicationcarvedilol 6.25 MG Oral Tablet *Reorder from [facility] for eRx and Interaction Alerts*, Taking 24 HR glipizide 10 MG Extended Release Oral Tablet ORAL , Notes to Pharmacist: 24 HR glipizide 10 MG Extended Release Oral TabletOriginal [id number] HR glipizide 10 MG Extended Release Oral Tablet *Reorder from [facility] for eRx and Interaction Alerts*, Taking atorvastatin 10 MG Oral Tablet ORAL , Notes to Pharmacist: atorvastatin 10 MG Oral TabletOriginal Medicationatorvastatin 10 MG Oral Tablet *Reorder from [facility] for eRx and Interaction Alerts*, Taking esomeprazole 40 MG Delayed Release Oral Capsule [Nexium] ORAL , Notes to Pharmacist: esomeprazole 40 MG Delayed Release Oral Capsule [Nexium]Original Medicationesomeprazole 40 MG Delayed Release Oral Capsule [Nexium] *Reorder from [facility] for eRx and Interaction Alerts*, Taking latanoprost 0.05 MG/ML Ophthalmic Solution , Notes to Pharmacist: latanoprost 0.05 MG/ML Ophthalmic SolutionOriginal Medicationlatanoprost 0.05 MG/ML Ophthalmic Solution *Reorder from [facility] for eRx and Interaction Alerts*, Taking metformin hydrochloride 500 MG Oral Tablet ORAL , Notes to Pharmacist: metformin hydrochloride 500 MG Oral TabletOriginal Medicationmetformin hydrochloride 500 MG Oral Tablet *Reorder from [facility] for eRx and Interaction Alerts*, Taking timolol 2.5 MG/ML Ophthalmic Solution , Notes to Pharmacist: timolol 2.5 MG/ML Ophthalmic SolutionOriginal Medicationtimolol 2.5 MG/ML Ophthalmic Solution *Reorder from [facility] for eRx and Interaction Alerts*, Medication List reviewed and reconciled with the patient * Allergies: D uricef: Allergy - Onset Date 12/30/2014. Objective: * Vitals: W t: 150 lbs, [...] M79.675 4 . U nspecified atherosclerosis of [place] arteries of extremities, bilateral legs - I70.203 Plan: * Treatment: * Follow Up: 9 weeks * Billing Information: * Visit Code: 33159 Office Visit, Est Pt., Level 3. * Procedure Codes: * Electronic signature of DIXIE RAMIREZ DPM on 05/16/2025 at 09:38 AM CDT Sign off status: Pending * Provider: Zara Ramirez DPM Date: 0 01/06/2025 Generated for Ana frias/Mike/Sadie on: 1 09:38 AM CDT History and Physical Notes [...]
--- OUTSIDE RECORDS SUMMARY | 2025-03-10 06:40 | XMS_ITS ---
Author Organization [facility] Address [address] [place], [place] [address] Care Team Providers Care Kelp Gatherer Name Role Phone DIXIE RAMIREZ Unavailable [phone] Ellen Rowley Unavailable Unavailable Allergies Allergen (clinical [...] glipizide 10 MG Extended Release Oral TabletOriginal Lvacdnpdfw01 HR glipizide 10 MG Extended Release Oral Tablet *Reorder from [employer] for eRx and Interaction Alerts* 12/30/2014 Active Carvedilol 6.25 MG Oral Tablet ORAL carvedilol 6.25 MG Oral TabletOriginal Medicationcarvedilol 6.25 MG Oral Tablet *Reorder from [employer] for eRx and Interaction Alerts* 12/30/2014 Active Lisinopril 40 MG Oral Tablet ORAL lisinopril 40 MG Oral TabletOriginal Medicationlisinopril 40 MG Oral Tablet *Reorder from [employer] for eRx and Interaction Alerts* 12/30/2014 Active Eliquis Active Aspirin 81 Active atorvastatin 10 MG Oral Tablet ORAL atorvastatin 10 MG Oral TabletOriginal Medicationatorvastatin 10 MG Oral Tablet *Reorder from [employer] for eRx and Interaction Alerts* 12/30/2014 Active metformin hydrochloride 500 MG Oral Tablet ORAL metformin hydrochloride 500 MG Oral TabletOriginal Medicationmetformin hydrochloride 500 MG Oral Tablet *Reorder from [employer] for eRx and Interaction Alerts* 12/30/2014 Active latanoprost 0.05 MG/ML Ophthalmic Solution latanoprost 0.05 MG/ML Ophthalmic SolutionOriginal Medicationlatanoprost 0.05 MG/ML Ophthalmic Solution *Reorder from [employer] for eRx and Interaction Alerts* 12/30/2014 Active esomeprazole 40 MG Delayed Release Oral Capsule [Nexium] ORAL esomeprazole 40 MG Delayed Release Oral Capsule [Nexium]Original Medicationesomeprazole 40 MG Delayed Release Oral Capsule [Nexium] *Reorder from [employer] for eRx and Interaction Alerts* 12/30/2014 Active timolol 2.5 MG/ML Ophthalmic Solution timolol 2.5 MG/ML Ophthalmic SolutionOriginal Medicationtimolol 2.5 MG/ML Ophthalmic Solution *Reorder from [employer] for eRx and Interaction Alerts* 12/30/2014 Active Encounters Encounter Location Date Provider Diagnosis [facility] [address] [facility] [address] [place], [place] [phone] 03/10/2025 DIXIE RAMIREZ Fungal infection of nail B35.1 ; Pain in right toe(s) M79.674 ; Pain in left toe(s) M79.675 and Unspecified atherosclerosis of [place] arteries of extremities, bilateral legs I70.203 Assessments Encounter Date Diagnosis (ICD Code) Assessment Notes Treatment Notes Treatment Clinical Notes Section Notes 03/10/2025 Fungal infection of nail (ICD-10 - B35.1) 03/10/2025 Pain in right toe(s) (ICD-10 - M79.674) 03/10/2025 Pain in left toe(s) (ICD-10 - M79.675) 03/10/2025 Unspecified atherosclerosis of [place] arteries of extremities, bilateral legs (ICD-10 - [...] 10:20:00 AM, [address] [facility] [address], [place], [place], [id number], Progress Notes * JAYSON LOPEZ EDOB:1950 (75 yo F)Acc No.[id number]:03/10/2025 Patient: JAYSON LINO Provider: Zara Ramirez DPM :1950 A ge:74 Y S ex:Female Date:03/10/2025 Address:[address] [place], [place] [id number] Subjective: * Chief Complaints: * 1 . [...] enies. * Medical History: D iabetic. * Family History: F ather: PRN - [...] tobacco use :. * Medications: T aking Aspirin 81 , Taking Eliquis , Taking Lisinopril 40 MG Oral Tablet ORAL , Notes to Pharmacist: lisinopril 40 MG Oral TabletOriginal Medicationlisinopril 40 MG Oral Tablet *Reorder from [facility] for eRx and Interaction Alerts*, Taking Carvedilol 6.25 MG Oral Tablet ORAL , Notes to Pharmacist: carvedilol 6.25 MG Oral TabletOriginal Medicationcarvedilol 6.25 MG Oral Tablet *Reorder from [facility] for eRx and Interaction Alerts*, Taking 24 HR glipizide 10 MG Extended Release Oral Tablet ORAL , Notes to Pharmacist: 24 HR glipizide 10 MG Extended Release Oral TabletOriginal Evuyghrvkg21 HR glipizide 10 MG Extended Release Oral Tablet *Reorder from [facility] for eRx and Interaction Alerts*, Taking atorvastatin 10 MG Oral Tablet ORAL , Notes to Pharmacist: atorvastatin 10 MG Oral TabletOriginal Medicationatorvastatin 10 MG Oral Tablet *Reorder from [facility] for eRx and Interaction Alerts*, Taking esomeprazole 40 MG Delayed Release Oral Capsule [Nexium] ORAL , Notes to Pharmacist: esomeprazole 40 MG Delayed Release Oral Capsule [Nexium]Original Medicationesomeprazole 40 MG Delayed Release Oral Capsule [Nexium] *Reorder from [facility] for eRx and Interaction Alerts*, Taking latanoprost 0.05 MG/ML Ophthalmic Solution , Notes to Pharmacist: latanoprost 0.05 MG/ML Ophthalmic SolutionOriginal Medicationlatanoprost 0.05 MG/ML Ophthalmic Solution *Reorder from [facility] for eRx and Interaction Alerts*, Taking metformin hydrochloride 500 MG Oral Tablet ORAL , Notes to Pharmacist: metformin hydrochloride 500 MG Oral TabletOriginal Medicationmetformin hydrochloride 500 MG Oral Tablet *Reorder from [facility] for eRx and Interaction Alerts*, Taking timolol 2.5 MG/ML Ophthalmic Solution , Notes to Pharmacist: timolol 2.5 MG/ML Ophthalmic SolutionOriginal Medicationtimolol 2.5 MG/ML Ophthalmic Solution *Reorder from [facility] for eRx and Interaction Alerts*, Medication [...] M79.675 4 . U nspecified atherosclerosis of [place] arteries of extremities, bilateral legs - I70.203 Plan: * Treatment: * Preventive Medicine: Screenings: F all risk screening Fall Risk Assessment: N o falls in the past year * Follow Up: 9 weeks * Billing Information: * Visit Code: 80257 Office Visit, Est Pt., Level 3. * Procedure Codes: * Electronic signature of DIXIE RAMIREZ DPM on 05/16/2025 at 09:37 AM CDT Sign off status: Pending * Provider: Zara Ramirez DPM Date: 0 03/10/2025 Generated for Ana frias/Mike/Sadie on: 09:37 AM CDT History and Physical Notes * [...]
--- OUTSIDE RECORDS SUMMARY | 2025-05-14 07:01 | XMS_ITS | Encounter Summary ---
Author Organization Formerly [facility] Address [address] [place] [address] Care Team Providers Care News Correspondent Name Role Phone Ellen Rowley MD Primary Care Provider [phone] Sam Young MD Unavailable [phone] Javier Pham MD Unavailable [phone] Reason for Referral * Cardiology (Routine) - Closed Specialty Diagnoses / Procedures Referred By Tia olivo Referred To Contact Diagnoses Atrial fibrillation, unspecified type (HCC) Nonrheumatic mitral valve regurgitation Procedures Transesophageal Echo (BENEDICT) W Doppler/CF TRANSESOPHAGEAL ECHO (BENEDICT) W DOPPLER/CF TRANSESOPHAGEAL ECHO (BENEDICT) W DOPPLER/CF WO CONTRAST TRANSESOPHAGEAL ECHOCARDIOGRAM (BENEDICT) COMPLETE W/ CONTRAST TRANSESOPHAGEAL ECHO (BENEDICT) W DOPPLER/CF W CONTRAST TRANSESOPHAGEAL ECHO (BENEDICT) W LTD DOPPLER/CF WO CONTRAST TRANSESOPHAGEAL ECHOCARDIOGRAM (BENEDICT) COMPLETE W/ COLOR TRANSESOPHAGEAL ECHO (BENEDICT) WO DOPPLER/CF W CONTRAST Sam Young MD [address] [place] [address] [address] Phone: tel: fax: [address] [phone] Referral ID Status Reason Start Date Expiration Date Visits Re quested Visits Authorized [id number] Closed 05/06/2025 06/05/2026 1 1 Reason for Visit * Cardiology (Routine) - Closed Specialty Diagnoses / Procedures Referred By Tia t Referred To Contact Diagnoses Atrial fibrillation, unspecified type (HCC) Nonrheumatic mitral valve regurgitation Procedures Transesophageal Echo (BENEDICT) W Doppler/CF TRANSESOPHAGEAL ECHO (BENEDICT) W DOPPLER/CF TRANSESOPHAGEAL ECHO (BENEDICT) W DOPPLER/CF WO CONTRAST TRANSESOPHAGEAL ECHOCARDIOGRAM (BENEDICT) COMPLETE W/ CONTRAST TRANSESOPHAGEAL ECHO (BENEDICT) W DOPPLER/CF W CONTRAST TRANSESOPHAGEAL ECHO (BENEDICT) W LTD DOPPLER/CF WO CONTRAST TRANSESOPHAGEAL ECHOCARDIOGRAM (BENEDICT) COMPLETE W/ COLOR TRANSESOPHAGEAL ECHO (BENEDICT) WO DOPPLER/CF W CONTRAST Sam Young MD [address] [facility] [address] [place] [address] [place] [address] Phone: tel: fax: [address] [phone] Referral ID Status Reason Start Date Expiration Date Visits Re quested Visits Authorized [id number] Closed 05/06/2025 06/05/2026 1 1 Encounter Details Date Type Department Care Team (Latest Contact Info) Description 05/14/2025 7:01 AM CDT - 05/14/2025 11:59 PM CDT Hospital Encounter [facility] Cardiac Catheterization Lab [address] [place] [id number] Sam Young MD [address] [facility] [address] [place] [address] [place] [id number] Atrial fibrillation, unspecified type (HCC); Nonrheumatic mitral valve regurgitation Discharge Disposition: Discharge to home or self care Social History Tobacco Use Types Packs/Day Years Used Date Smoking Tobacco: Never Passive Smoke Exposure: Never Smokeless Tobacco: Never Alcohol Use Standard Drinks/Week Comments Not Currently 0 (1 standard drink = 0.6 oz pur e alcohol) Social Connection and Isolation Panel Answer Date Recorded In a typical week, how many times do you talk on the phone with family, friends, or neighbors? More than three times a week 10/31/2024 How often do you get togethe r with friends or relatives? More than three times a week 10/31/2024 How often do you attend [facility] [employer] or taoism services? Never 10/31/2024 Do you belong to any clubs o r organizations such as cheondoism groups, unions, fraternal or athletic groups, or school groups? No 10/31/2024 How often do you attend meet ings of the clubs or organizations you belong to? Never 10/31/2024 Are you , , di vorced, , never , or living with a partner? 10/31/2024 Overall Financial Resource Strain (CARDIA) Answe r Date Recorded How hard is it for you to pa y for the very basics like food, housing, medical care, and heating? Not hard at all 10/31/2024 PHQ-2 Answer Date Recorded PHQ-2 Total Score (If total score is 3 or more points, staff should administer the PHQ-9) 0 10/31/2024 PRAPARE - Transportation Answer Date Re [...] any time in the past 12 m [facility], were you homeless or living in a fdc (including now)? No 11/05/2024 Social Connection and Isolation Panel Answer Date Recorded In a typical week, how many times do you talk on the phone with family, friends, or neighbors? More than three times a week 04/28/2025 How often do you get togethe r with friends or relatives? More than three times a week 04/28/2025 How often do you attend chur ch or taoism services? Never 04/28/2025 Do you belong to any clubs o r organizations such as cheondoism groups, unions, fraternal or athletic groups, or school groups? No 04/28/2025 How often do you attend meet ings of the clubs or organizations you belong to? Never 04/28/2025 Are you , , di vorced, , never , or living with a partner? 04/28/2025 AUDIT-C Answer Date Recorded Q1: How often do you have a drink containing alcohol? Never 05/14/2025 Q2: How many drinks containi ng alcohol do you have on a typical day when you are drinking? Patient does not drink Q3: How often do you have si x or more drinks on one occasion? Never 05/14/2025 Overall Financial Resource Strain (CARDIA) Answe r Date Recorded How hard is it for you to pa y for the very basics like food, housing, medical care, and heating? Not hard at all 04/28/2025 Hunger Vital Sign Answer Date Recorded Within the past 12 months, y ou worried that your food would run out before you got the money to buy more. Never true 04/28/20 25 Within the past 12 months, t he food you bought just didn't last and you didn't have money to get more. Never true 04/28/2025 PRAPARE - Transportation Answer Date Re corded In the past 12 months, has l ack of transportation kept you from medical appointments or from getting medications? No 04/01 In the past 12 months, has l ack of transportation kept you from meetings, work, or from getting things needed for daily living? No 04/28/2025 Housing Stability Vital Sign Answer Filippo e Recorded In the last 12 months, was t here a time when you were not able to pay the mortgage or rent on time? No 04/28/2025 In the past 12 months, how m any times have you moved where you were living? 0 04/28/2025 At any time in the past 12 m [facility], were you homeless or living in a fdc (including now)? No 04/28/2025 [facility] Utilities Answer Date Recorded In the past 12 months has th e electric, gas, oil, or water company threatened to shut off services in your home? No 04/28/2025 Personal Safety Answer Date Recorded Have you ever been in or are you currently in a harmful physical or emotional relationship or is someone making you feel afraid or unsafe? Denies 05/14/2025 Comments Unknown Sex and Gender Information Value Date Recorded Sex Assigned at Not on file Legal Sex Female 5:32 PM [employer] Gender Identity Not on file Sexual Orientation Not on file documented as of this encounter Last Filed Vital Signs Vital Sign Reading Time Taken Comments Blood Pressure 119/70 05/14/2025 12:10 PM CDT Pulse 73 05/14/2025 12:10 PM CDT Temperature 36.9 C (98.4 F) 05/14/2025 7:37 AM CDT Respiratory Rate 18 05/14/2025 7:37 AM CDT Oxygen Saturation 100% 05/14/2025 12:10 PM CDT Inhaled Oxygen Concentration - - Weight 62.8 kg (138 lb 8 oz) 05/14/2025 7:37 AM CDT Height 160 cm (5' 3) 05/14/2025 7:37 AM CDT Body Mass Index 24.53 05/14/2025 7:37 AM CDT documented in this encounter Functional Status * AUDIT-C Score Answer Date of Assessment Author 0 05/14/2025 7:24 AM CDT Rita Haney * Question Answer Date of Assessment Author Q1: How often do you have a drink containing alcohol? Never 05/14/2025 7:24 AM CDT Rita Haney Q2: How many drinks containing alcohol do you have on a typical day when you are drinking? Patient does not drink 05/14/2025 7:24 AM CDT Rita Haney Q3: How often do you have six or more drinks on one occasion? Never 05/14/2025 7:24 AM CDT Rita Haney documented as of this encounter Discharge Instructions * Attachments The following attachments cannot be sent through Care Everywhere. * Moderate Sedation (Discharge Care) ([place]) * Transesophageal Echocardiogram (Discharge Care) ([place]) documented in this encounter Medications at Time of Discharge acetaminophen (TYLENOL) 325 mg tablet Take 2 tablets (650 mg total) by mouth every 4 (four) hours as needed for pain ferrous sulfate 325 mg (65 mg of elemental iron) tablet Take 1 tablet (325 mg total) by mouth daily with breakfast ipratropium-albuter oL (DUO-NEB) 0.5-2.5 mg/3 mL nebulizer solutionIndications :Chronic Obstructive Pulmonary Disease with Bronchospasms Take 3 mL by nebulization 4 (four) times a day 180 mL 11 5 latanoprost (XALATAN) 0.005 % ophthalmic solution Administer 0.005 % into both eyes nightly levothyroxine (SYNTHROID) 137 mcg tablet TAKE 1 TABLET BY MOUTH DAILY EXCEPT ON MONDAY TAKE 2 5 lidocaine (LIDODERM) 5 % Place 1 patch on the skin daily Remove & discard patch within 12 hours or as directed by MD. metoprolol (LOPRESSOR) 25 mg immediate release tablet Take 1 tablet (25 mg total) by mouth 2 (two) times a day 60 tablet 5 miconazole 2 % powder Apply topically 2 (two) times a day 70 g 5 mupirocin (BACTROBAN) 2 % ointmentIndications :Achalasia of cardia Apply topically 3 (three) times a day Apply around j tube 22 g 5 nitroglycerin (NITROSTAT) 0.[address] 1 tablet (0.4 mg total) under the tongue every 5 (five) minutes as needed for chest pain ondansetron ODT (ZOFRAN-ODT) 4 mg disintegrating tabletIndications:A chalasia of cardia Take 1 tablet (4 mg total) by mouth every 8 (eight) hours as needed for nausea or vomiting [address] (PROTONIX) 40 mg EC tablet 5 predniSONE (DELTASONE) 10 mg tablet Take 4 tabs (40mg) daily for 3 days, then 3 tabs (30mg) daily for 3 days, 2 tabs (20mg) daily for 3 days, 1 tab (10 mg) daily for 3 days. 30 tablet 5 05/30/20 25 senna-docusate (PERICOLACE) 8.6-50 mg Take 2 tablets by mouth nightly timolol (TIMOPTIC) 0.5 % ophthalmic solution Administer 1 drop into both eyes every morning 1 documented as of this encounter Discharge Disposition Disposition Code Departure Means Destination Discharge to home or self care documented in this encounter H&P Notes * Sam Young MD - 05/14/2025 9:00 AM CDT I have reviewed the H&P, examined the patient, and endorse the findings as written. Plan of Care : Based on the above findings, I consider Willow Najera to be an acceptable risk for :* No procedures listed * Source Note - Sam Young MD - 05/02/2025 11:15 AM CDT 05/02/2025 CHIEF COMPLAINT Chief Complaint Patient presents with Nonrheumatic mitral valve regurgitation Routine clinic f/u visit INTERVAL HISTORY Active complaints: recently admitted with hemoptysis and since stopped OAC no recurrent bleeding Physical activity normal Compliance with medication Yes REVIEW OF SYSTEMS General: No bleeding, chills or fevers Cardiac:No chest pain or palpitations Chest: No SOB or cough Neuro: no focal weakness or dizziness PHYSICAL EXAM Vitals BP 110/56 Pulse 77 Wt 62.1 kg (137 lb) SpO2 98% BMI 24.27 kg/m?? General: no acute distress Cardiac: S1 S2 no murmur, no JVD Chest: CTAB normal effort and equal chest expansion LE: warm, no edema, intact peripheral pulses LABS Lab Results Component Value Date WBC 5.21 04/30/2025 HGB 9.7 (L) 04/30/2025 HCT 29.1 (L) 04/30/2025 MCV 95.3 04/30/2025 LABPLAT 201 04/30/2025 Lab Results Component Value Date GLUCOSE 133 04/30/2025 CALCIUM 8.5 04/30/2025 SODIUM 135 04/30/2025 POTASSIUM 4.4 04/30/2025 CO2 20 (L) 04/30/2025 CHLORIDE 103 04/30/2025 BUNSER 38 (H) 04/30/2025 CREATININE 1.00 04/30/2025 Lab Results Component Value Date POCCHOL 122 11/27/2024 Lab Results Component Value Date POCHDL 39 (A) 11/27/2024 Lab Results Component Value Date POCLDL 67 11/27/2024 Lab Results Component Value Date POCTRIG 83 11/27/2024 ER/HOSPITAL VISIT 04/30/2025 hemoptysis 11/05/2024 admitted to the hospital with syncope and dizziness, history of AFib with RVR, severe mitral regurgitation, history of G-tube for esophageal achalasia and malnutrition, patient was found to have complete heart block underwent trans venous temporary pacer followed by dual-chamber pacemaker PRIOR CLINIC VISIT 01/30/2025 routine visit DIAGNOSTIC TESTS 10/31/2024 transthoracic echocardiogram Ejection fraction 50-55%, moderate to severe mitral regurgitation TTE 10/14/24 1. The Ejection Fraction (Abdi's) is measured at 62 %. 2. Markedly dilated left atrium. 3. Small pericardial effusion. No cardiac tamponade. 4. Mild pulmonary hypertension. Right ventricular systolic pressure 37 mm Hg. CARDIAC INTERVENTIONS OR SURGERIES Dual-chamber pacemaker 10/31/2024 CURRENT MEDICATIONS Current Outpatient Medications Medication Sig Dispense Refill acetaminophen (TYLENOL) 325 mg tablet Take 2 tablets (650 mg total) by mouth every 4 (four) hours as needed for pain atorvastatin (LIPITOR) 10 mg tablet Take 1 tablet (10 mg total) by mouth nightly (Patient not taking: Reported on 02/06/2025) 30 tablet 0 doxycycline (VIBRAMYCIN) 100 mg capsule Take 1 tablet/capsule (100 mg total) by mouth 2 (two) timesa day for 10 days 20 tablet/capsule 0 ferrous sulfate 325 mg (65 mg of elemental iron) tablet Take 1 tablet (325 mg total) by mouth dailywith breakfast ipratropium-albuteroL (DUO-NEB) 0.5-2.5 mg/3 mL nebulizer solution Take 3 mL by nebulization 4 (four) times a day 180 mL 11 latanoprost (XALATAN) 0.005 % ophthalmic solution Administer 0.005 % into both eyes nightly levothyroxine (SYNTHROID) 137 mcg tablet TAKE 1 TABLET BY MOUTH DAILY EXCEPT ON MONDAY TAKE 2 lidocaine (LIDODERM) 5 % Place 1 patch on the skin daily Remove & discard patch within 12 hoursor as directed by MD. metoprolol (LOPRESSOR) 25 mg immediate release tablet Take 1 tablet (25 mg total) by mouth 2 (two) times a day (Patient taking differently: Take 1 tablet (25 mg total) by mouth daily) 60 tablet 0 miconazole 2 % powder Apply topically 2 (two) times a day (Patient not taking: Reported on 02/06/2025) 70 g 0 mupirocin (BACTROBAN) 2 % ointment Apply topically 3 (three) times a day Apply around j tube (Patient not taking: Reported on 02/06/2025) 22 g 0 nitroglycerin (NITROSTAT) 0.[address] 1 tablet (0.4 mg total) under the tongue every 5 (five) minutes as needed for chest pain (Patient not taking: Reported on 02/06/2025) ondansetron ODT (ZOFRAN-ODT) 4 mg disintegrating tablet Take 1 tablet (4 mg total) by mouth every 8(eight) hours as needed for nausea or vomiting [address] (PROTONIX) 40 mg EC tablet predniSONE (DELTASONE) 10 mg tablet Take 4 tabs (40mg) daily for 3 days, then 3 tabs (30mg) daily for 3 days, 2 tabs (20mg) daily for 3 days, 1 tab (10 mg) daily for 3 days. 30 tablet 0 senna-docusate (PERICOLACE) 8.6-50 mg Take 2 tablets by mouth nightly (Patient taking differently: Take 1 tablet by mouth daily) timolol (TIMOPTIC) 0.5 % ophthalmic solution Administer 1 drop into both eyes every morning No current facility-administered medications for this visit. ASSESSMENT/PLAN Patient with a history of atrial fibrillation, [id number] score 3 and Has bled score 5. Patient is at high-risk of bleeding secondary to recurrent bleeding including hemoptysis and wanted to explore options for stroke reduction other than OAC. I had a discussion with the patient regarding shared decision making process which includes an explanation of patient treatment options, risk and benefits of treatment options for both Oral Anti-Coagulants and left atrial appendage occlusion. Patient is understanding and willing to be referred for LAAO procedure. Complete heart block Status post dual-chamber pacemaker continue device interrogation Chronic diastolic heart failure currently compensated to observe for signs of CHF Chronic hypoxemic hypercapnic respiratory failure follow up with Pulmonary Moderate to severe mitral regurgitation follow up transthoracic echocardiogram Recommended F/U in 12 months Counseled about importance of compliance with medical therapy, healthy diet, exercise and healthy life style. Sam Young MD 05/02/25 documented in this encounter Nursing Notes * Jessie Hoffmann RN - 05/14/2025 9:00 AM CDT Discharge paperwork discussed and provided to patient and patient's spouse. Both verbalized understanding of discharge education. * Jessie Hoffmann RN - 05/14/2025 9:00 AM CDT Pt discharged via wheelchair with family present. Pt assisted into family/visitor vehicle. IV removed and vital signs stable. Discharge paperwork given to patient and family and patient and family/visitor verbalized understanding. documented in this encounter Miscellaneous Notes * Pre-Sedation Documentation - Sam Young MD - 05/14/2025 9:00 AM CDT Procedure: BENEDICT Sedation plan: moderate sedation ASA: 3 sever systemic disease Mallampati class: III. Sedation plan and risks discussed with case NPO since midnight documented in this encounter Plan of Treatment Not on file documented as of this encounter Procedures Procedure Name Priority Date/Time Associated Diagnosis Comments TRANSESOPHAGEAL ECHO (BENEDICT) W DOPPLER/CF WO CONTRAST Routine 05/14/2025 12:00 PM CDT Atrial fibrillation, unspecified type (HCC) Nonrheumatic mitral valve regurgitation POCT GLUCOSE DEVICE Routine 05/14/2025 7 :11 AM CDT documented in this encounter Results * TRANSESOPHAGEAL ECHO (BENEDICT) W DOPPLER/CF WO CONTRAST (05/14/2025 12:00 PM CDT) BSA 1.67 m2 CONS SCIMAGE Anatomical Region Laterality Modality Ultrasound Narrative 05/14/2025 11:53 AM CDT PROCEDURE: BENEDICT: Full study including 2D color Doppler and spectral Doppler SEDATION: Moderate sedation was done using Versed and fentanyl. Sedation start and end time (review nurses documentation). Sedation was administered under my supervision and RN in the room with continuous monitoring of patient's vital signs, airway and hemodynamic. Sedation was tolerated very well by the patient and at the end of the procedure patient was conscious. FINDINGS Left ventricle: Normal left ventricular size and mildly reduced left ventricular systolic function ejection fraction 45% Left atrium: moderate to severely dilated and smoke noted in left atrium Left atrial appendage: enlarged and no evidence of thrombus, reduced flow velocity Left atrial appendage measurement landing zone - 0 degree 2.0 - 45 degree 2.2 cm - 90 degree 2.4 cm - 130 degree 2.5 cm Pulmonary vein flow pattern is normal by spectral doppler Right ventricle: Normal right ventricular size and systolic function Right atrium: normal Mitral valve: mild restriction and posterior leaflet motion, mild regurgitation Aortic valve: Normal structure and function, trileaflet Pulmonic valve: Normal structure and function Tricuspid valve: Normal structure and function trace regurgitation Interatrial septum: Intact with no evidence of flow across the septum Aorta: Normal size and no evidence of significant arthrosclerosis Conclusion Mild mitral regurgitation Mild left ventricular systolic dysfunction Moderate to severely dilated left atrium Dilated left atrial appendage measurement with no evidence of thrombus Sam Young MD CV ECHO PROCEDURES Final Re sult * POCT glucose (05/14/2025 7:11 AM CDT) [facility] Signature Glucose, POC 96 70 - 199 mg/dL Blood 05/14/2025 7:11 AM CDT 05/14/2025 7:11 AM CDT Sam Young MD LAB POCT ORDERABLES - DEVIC E Final Result LISA [address] [address] Department [place] [address] documented in this encounter Visit Diagnoses Diagnosis Atrial fibrillation, unspecified type (HCC) Nonrheumatic mitral valve regurgitation documented in this encounter Administered Medications Inactive Administered Medications - up to 3 most recent administrations Medication Order MAR Action Action Date Dose Rate Site benzocaine (HURRICAINE) 20 % mouth spray Code/trauma/sedation medication, Starting on Mon05/14/25 at 1054, Intra-Procedure (CV) Given 05/14/2025 10:54 AM CDT 2 sprays fentaNYL (SUBLIMAZE) preservative free injection intravenous, Code/trauma/sedation medication, Starting on Mon05/14/25 at 1109, Intra-Procedure (CV) Given 05/14/2025 11:16 AM CDT 50 mcg Given 05/14/2025 11:09 AM CDT 50 mcg lidocaine viscous (XYLOCAINE) 2 % solution oral, Code/trauma/sedation medication, Starting on Mon05/14/25 at 1054, Intra-Procedure (CV) Given 05/14/2025 10:54 AM CDT 15 mL midazolam (VERSED) 1 mg/mL preservative free injection Administer over 2 Minutes, Code/trauma/sedation medication, Starting on Mon05/14/25 at 1109, Intra-Procedure (CV) Given 05/14/2025 11:16 AM CDT 1 mg Given 05/14/2025 11:09 AM CDT 1 mg documented in this encounter Orders Discharge Count Last Ordered Date First Orde red Date DISCHARGE PATIENT 1 05/14/2025 documented in this encounter Care Teams News Correspondent Relationship Specialty Start Date End Date Ellen Rowley MD [address] [place] [address] PCP - General Family Medicine 02/09/22 Sam Young MD [address] [facility] [address] [place] [address] [place] [id number] Consulting Physician Cardiology 04/30/25 Javier Pham MD [address] [facility] [address] [place] [address] [place] [id number] Consulting Physician Pulmonary Disease 04/30/25 documented as of this encounter
--- OUTSIDE RECORDS SUMMARY | 2025-05-15 09:45 | XMS_ITS | Encounter Summary ---
Author Organization [facility] Address [address] [place] [address] Care Team Providers Care Forensic Examiner Name Role Phone Ellen Rowley MD Primary Care Provider [phone] Sam Young MD Unavailable [phone] Javier Pham MD Unavailable [phone] Reason for Visit * Reason Comments PT Treatment * Physical Therapy (Routine) - Authorized Specialty Diagnoses / Procedures Referred By Contac t Referred To Contact Physical Therapy Diagnoses Unilateral primary osteoarthritis, left knee Pain in left ankle and joints of left foot Ellen Rowley MD [facility] [place] [address] Phone: tel: fax: Ellen Rowley MD [facility] [place] [address] Phone: tel: fax: Referral ID Status Reason Start Date Expiration Date Visits Requested Visits Authorized [id number] Authorized Evaluate and Treat 02/26/2025 07/30/2025 16 99 Encounter Details Date Type Department Care Team (Late st Contact Info) Description 05/15/2025 9:45 AM CDT Therapy [facility] Medical Office Bldg 1 OP Physical Therapy [address] [place] [address] Range, Danielle, BAKELITE MOLDER Primary osteoarthritis of both knees (Primary Dx); Chronic pain of both knees; Unilateral primary osteoarthritis, left knee; Pain in left ankle and joints of left foot Social History Tobacco Use Types Packs/Day Years [...] often do you attend chur ch or yarsanism services? Never 10/31/2024 Do you belong to any clubs o r organizations such as gnosticist groups, unions, fraternal or athletic groups, or [...] any time in the past [address] [facility], were you homeless or living in a mcc (including now)? No 11/05/2024 Social Connection and Isolation Panel Answer Date Recorded In a typical week, how many times do you talk on the phone with family, friends, or neighbors? More than three times a week 04/28/2025 How often do you get togethe r with friends or relatives? More than three times a week 04/28/2025 How often do you attend chur ch or yarsanism services? Never 04/28/2025 Do you belong to any clubs o r organizations such as gnosticist groups, unions, fraternal or athletic groups, or [...] any time in the past [address] [facility], were you homeless or living in a mcc (including now)? 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 Primary osteoarthritis of both knees M17.0 2. Chronic pain of both knees M25.561 M25.562 G89.29 3. Unilateral primary osteoarthritis, left knee M17.12 4. Pain in left ankle and joints of left foot M25.572 ELLEN ROWLEY PT Diagnosis/Impairment List: L knee OA, Gait diffculty Precautions: R TKR Relevant Comorbidities: A-Fib, Pacemaker Short-Term Goals:to be met by 04/14/25 Patient will be instructed in HEP Patient L knee AROM: 0 - 115 deg Patient will report 25% improvement of L knee stability Long-Term Goals: to be met by 05/13/25 Patient will be independent in HEP (new and revised). Patient reports 50% improvement of L knee strength with ADLs Patient will improve 25% with TUG and gait testing Patient Goal: Walk better with less L knee pain PT Eval Date: 03/18/25 Orders : 05/13/25 INITIAL CERTIFICATION DATES: From 03/18/25 to05/13/2025 (8 weeks) Date Date Date Date Date Date Date 04/16/25 04/21/25 04/23/25 05/05/25 05/07/25 05/12/25/16/25 Visit Number 7 [phone] 10 11 12 13 NuStep L:-4, 7 min L-4,8 min L-4, 8 min L-4, 8 min L-5, 7 min L-5, 7 min Sit to Stand (off blue mat, no hands) Stair Climbing up / down Heel Raises 15 x 15 x 15 x 15 x 15 15 x Mini Squats 15 x 15 x 15 x 15 x 15 x 15 x Marching 15 x 15 x 15 x 15 x 15 x 15 x Hip Abd/Ext 15 x 15 x 15 x 15 x 15 x 15 x HS Curls 10 x 10 x 15 x 15 x 10 x 15 x Side Stepping 4 x 3 x // 4 x // 4 x 6ft 4 x 6ft 4 x 6 ft LAQ 2# 15 x 2# 15 x 2# 15 x 2# 15 x 2.5# 15 x 2.5 lb 15 x Romberg balance 3 x 30 2 x 20 sec 3 x 15 sec 3 x 15 sec 3 x 15 sec 3 x 15 sec L SLB 3 x 10 sec 3 x 10 sec 3 x 10 sec 3 x 15 sec 3 x 15 sec 2 x Bike SLR Flexion LEFT 15 x 15 x 15 x SAQ Heel Slides LEFT 10 x 10 x 10 x Seated HS Curl Machine Gait: WW 2 laps 1 lap str cane 130 ft 140 ft w cane 132 ft w cane Tandem stance 2 x 15 sec 2 x 15 sec 2 x 15 sec 2 x 15 sec 3 x 15 sec 3 x 15 sec Progress Note/Re-Cert * Danielle Atwood PTA - 05/15/2025 9:45 AM CDT Images from the original note were not included. Physical Therapy Visit/Daily Note 05/15/2025 Willow Najera 1950 ICD-10-CM 1. Primary osteoarthritis of both knees M17.0 2. Chronic pain of both knees M25.561 M25.562 G89.29 3. Unilateral primary osteoarthritis, left knee M17.12 4. Pain in left ankle and joints of left foot M25.572 ELLEN ROWLEY [employer] Utilized: NO Patient is identified by name and date of on this visit. Subjective: Pt reports she feels a lot stronger since starting therapy but still struggles with her balance. She has received balance exercises for her HEP and understands how to safely perform them. Since beginning therapy she reports 40% improvement in her overall condition. Her stamina and endurance have improved the most but even her balance has improved. Pain today is 0/10. Changes since last visit include improved pain levels. She had an outpatient procedure done yesterday so needs to rest for several days to ensure smooth recovery. Objective: Objective Measurement/Observation: L Knee PROM: 0-120. R Knee PROM: 0-123. Educated patient on safety with HEP and following DC, she verbalized understanding. Specific exercises and treatment interventions are outlined on exercise worksheet document. Treatment Performed on This Visit: Manual Therapy (body part and techniques): NT Therapeutic Procedure/Exercise:Reviewed HEP to ensure safe D/C Modalities:NT HEP given Reviewed current HEP Patient education:Safety following D/C Assessment: The patient demonstrated a good response to today's treatment as evidenced by these objective findings: positive understanding of HEP. The patient is making expected progress toward STG # 1-3 and LTG# 1-3 as evidenced by changes in exercise tolerance, balance, and endurance. The patient continues to demonstrate deficits with balance though she understands her HEP exercises for balance. Plan: Patient would benefit from the following modification on next visit: Discharge from therapy following today Recommend discharge from physical therapy and recommend independent performance of established HEP If this is the last physical therapy visit, this note will serve as the discharge summary. Danielle Atwood PTA, [facility] ATTENTION PHYSICIAN If you are unable to electronically sign this document, please print this document and sign below to certify this plan of care/treatment plan. By signing this document, I certify that I have reviewedthis plan of care and support the treatment. Please fax back to . Thank you. Provider Signature: Date: documented in this encounter Plan of Treatment Not on file documented as of this encounter Visit Diagnoses Diagnosis Primary osteoarthritis of both knees- Primary Chronic pain of both knees Unilateral primary osteoarthritis, left knee Pain in left ankle and joints of left foot documented in this encounter Care Teams Forensic Examiner Relationship Specialty Start Date End Date Ellen Rowley MD [address] [place] [address] PCP - General Family Medicine 02/09/22 Sam Young MD [address] [facility] [address] [place] [address] Consulting Physician Cardiology 04/30/25 Javier Pham MD [address] [facility] [address] [place] [address] Consulting Physician Pulmonary Disease 04/30/25 documented as of this encounter
--- OUTSIDE RECORDS SUMMARY | 2025-05-15 09:45 | XMS_ITS | Encounter Summary ---
Author Organization [facility] Healthcare Address [address] [place] [address] Care Team Providers Care Senior Javascript Engineer Name Role Phone Ellen Rowley MD Primary Care Provider [phone] Sam Young MD Unavailable [phone] Javier Pham MD Unavailable [phone] Reason for Visit * Reason Comments PT Progress Note Encounter Details Date Type Department Care Team (Late st Contact Info) Description 05/15/2025 9:[address] [facility] [place] Medical Office Bldg 1 OP Physical Therapy [address] [place] [address] Rajesh Howard, LUZ MARIA Primary osteoarthritis of both knees (Primary Dx); Chronic pain of both knees Social History Tobacco Use Types Packs/Day Years [...] 10/31/2024 How often do you attend chur or islam services? Never 10/31/2024 Do you belong to any clubs o r organizations such as sikh groups, unions, fraternal or athletic groups, or [...] time in the past 12 m [facility], were you homeless or living in a senior living (including now)? No 11/05/2024 Social Connection and Isolation Panel Answer Date Recorded In a typical week, how many times do you talk on the phone with family, friends, or neighbors? More than three times a week 04/28/2025 How often do you get togethe r with friends or relatives? More than three times a week 04/28/2025 How often do you attend chur ch or islam services? Never 04/28/2025 Do you belong to any clubs o r organizations such as sikh groups, unions, fraternal or athletic groups, or [...] time in the past 12 m [facility], were you homeless or living in a senior living (including now)? 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 Gender Identity Not on file Sexual Orientation Not on file documented as of this encounter Plan of Treatment Not on file documented as of this encounter Visit Diagnoses Diagnosis Primary osteoarthritis of both knees- Primary Chronic pain of both knees documented in this encounter Care Teams Senior Javascript Engineer Relationship Specialty Start Date End Date Ellen Rowley MD [address] [place] [address] PCP - General Family Medicine 02/09/22 Sam Young MD [address] [facility] [address] [place] [address] Consulting Physician Cardiology 04/30/25 Javier Pham MD [address] [facility] [address] [place] [address] Consulting Physician Pulmonary Disease 04/30/25 documented as of this encounter
--- OUTSIDE RECORDS SUMMARY | 2025-05-16 09:38 | XMS_ITS | Patient Health Record ---
Author Organization [facility] Address [address] [place], [place] [id number] Care Team Providers Care Sanforizing Machine Operator Name Role Phone DIXIE STEWART Unavailable [phone] Ellen Rowley Unavailable Unavailable Allergies Allergen (clinical [...] Medicationatorvastatin 10 MG Oral Tablet *Reorder from [employer] for eRx and Interaction Alerts* 12/30/2014 Active 24 HR glipizide 10 MG Extended Release Oral Tablet ORAL 24 HR glipizide 10 MG Extended Release Oral TabletOriginal Fonzivhitl84 HR glipizide 10 MG Extended Release Oral Tablet *Reorder from [employer] for eRx and Interaction Alerts* 12/30/2014 Active Carvedilol 6.25 MG Oral Tablet ORAL carvedilol 6.25 MG Oral TabletOriginal Medicationcarvedilol 6.25 MG Oral Tablet *Reorder from [employer] for eRx and Interaction Alerts* 12/30/2014 Active Lisinopril 40 MG Oral Tablet ORAL lisinopril 40 MG Oral TabletOriginal Medicationlisinopril 40 MG Oral Tablet *Reorder from [employer] for eRx and Interaction Alerts* 12/30/2014 Active metformin hydrochloride 500 MG Oral Tablet ORAL metformin hydrochloride 500 MG Oral TabletOriginal Medicationmetformin hydrochloride 500 MG Oral Tablet *Reorder from [employer] for eRx and Interaction Alerts* 12/30/2014 Active latanoprost 0.05 MG/ML Ophthalmic Solution latanoprost 0.05 MG/ML Ophthalmic SolutionOriginal Medicationlatanoprost 0.05 MG/ML Ophthalmic Solution *Reorder from [employer] for eRx and Interaction Alerts* 12/30/2014 Active esomeprazole 40 MG Delayed Release Oral Capsule [Nexium] ORAL esomeprazole 40 MG Delayed Release Oral Capsule [Nexium]Original Medicationesomeprazole 40 MG Delayed Release Oral Capsule [Nexium] *Reorder from [employer] for eRx and Interaction Alerts* 12/30/2014 Active Eliquis Active Aspirin 81 Active timolol 2.5 MG/ML Ophthalmic Solution timolol 2.5 MG/ML Ophthalmic SolutionOriginal Medicationtimolol 2.5 MG/ML Ophthalmic Solution *Reorder from [employer] for eRx and Interaction Alerts* 12/30/2014 Active [...] Date Provider Diagnosis [facility] [address] [id number] 08/26/2024 DIXIE SAHILTENBURG Fungal infection of nail B35.1 ; Pain in right toe(s) M79.674 ; Pain in left toe(s) M79.675 and 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, bilateral legs I70.203 [facility] [address] [id number] 01/06/2025 DIXIE WHITTENBURG Fungal infection of nail B35.1 ; Pain in right toe(s) M79.674 ; Pain in left toe(s) M79.675 and 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, bilateral legs I70.203 [facility] [address] [place] [id number] 03/10/2025 DIXIE WHITTENBURG Fungal infection of nail B35.1 ; Pain in right toe(s) M79.674 ; Pain in left toe(s) M79.675 and 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, bilateral legs I70.203 [facility] [address] [place], [place] [id number] 06/24/2024 DIXIE STEWART Fungal infection of nail B35.1 ; Pain in right toe(s) M79.674 ; Pain in left toe(s) M79.675 and 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, bilateral legs I70.203 Assessments Encounter Date Diagnosis (ICD Code) Assessment Notes Treatment Notes Treatment Clinical Notes Section Notes 06/24/2024 Fungal infection of nail (ICD-10 - B35.1) 08/26/2024 Fungal infection of nail (ICD-10 - B35.1) 01/06/2025 Fungal infection of nail (ICD-10 - B35.1) 03/10/2025 Fungal infection of nail (ICD-10 - B35.1) 03/10/2025 Pain in right toe(s) (ICD-10 - M79.674) 01/06/2025 Pain in right toe(s) (ICD-10 - M79.674) 08/26/2024 Pain in right toe(s) (ICD-10 - M79.674) 06/24/2024 Pain in right toe(s) (ICD-10 - M79.674) 06/24/2024 Pain in left toe(s) (ICD-10 - M79.675) 08/26/2024 Pain in left toe(s) (ICD-10 - M79.675) 01/06/2025 Pain in left toe(s) (ICD-10 - M79.675) 03/10/2025 Pain in left toe(s) (ICD-10 - M79.675) 03/10/2025 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, bilateral legs (ICD-10 - I70.203) 01/06/2025 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, bilateral legs (ICD-10 - I70.203) 08/26/2024 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, bilateral legs (ICD-10 - I70.203) 06/24/2024 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, bilateral legs (ICD-10 - [...] any subungual debris and necrotic tissue removed 03/10/2025 Other Nails 1-5 Bilateral were debrided [...] Of Treatment Next Appt Details Provider Name:DIXIE Barajas ASHLEY BERNIE, 05/19/2025 10:20:00 AM, [address], [place], [place], [id number], Insurance Providers Payer Name Payer Address Payer Phone Subscriber Number Group Number Insured Name Patient Relationship to Insured Coverage Start Date Coverage End Date [employer] [address] [place] [phone] [id number] JAYSON LOPEZ Self - patient is the insured Medical (General) History Medical History History ICD Code Diabetic
--- OUTSIDE RECORDS SUMMARY | 2025-05-16 09:38 | XMS_ITS | Encounter Summary ---
Author Organization [facility] Healthcare Address [address] [place] [address] Care Team Providers Care Deputy Coroner Investigator Name Role Phone Ellen Rowley MD Primary Care Provider [phone] Sam Young MD Unavailable [phone] Javier Pham MD Unavailable [phone] Encounter Details Date Type Department Care Team (Late st Contact Info) Description 05/14/2025 Cardiology Conference [facility] Non-invasive Cardiac Diagnostic Testing [address] [place] [address] Nasir Esquivel, SANDY Social History Tobacco Use Types Packs/Day Years [...] any clubs o r organizations such as congregation groups, unions, fraternal or athletic groups, or [...] any time in the past 12 m [facility], were you homeless or living in a longterm (including now)? No 11/05/2024 Social Connection and [...] attend chur ch or shinto services? Never 04/28/2025 Do you belong to any clubs o r organizations such as congregation groups, unions, fraternal or athletic groups, or [...] any time in the past 12 m onths, were you homeless or living in a longterm (including now)? No 04/28/2025 [facility] Utilities Answer Date Recorded In the past 12 months has e [employer], gas, oil, or water [email or web address] threatened to shut off services in your home? No 04/28/2025 Personal Safety Answer Date Recorded Have you ever been in or are you currently in a harmful physical or emotional relationship or is someone making you feel afraid or unsafe? 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 Never 05/14/2025 7:24 AM Rita Fields Q2: How many drinks containing alcohol do you have on a typical day when you are drinking? Patient does not drink 05/14/2025 7:24 AM Rita Fields Q3: How often do you have six or more drinks on one occasion? Never 05/14/2025 7:24 AM Rita Fields documented as of this encounter Plan of Treatment Not on file documented as of this encounter Visit Diagnoses Not on filedocumented in this encounter Care Teams Deputy Coroner Investigator Relationship Specialty Start Date End Date Ellen Rowley MD [address] [place] [address] PCP - General Family Medicine 02/09/22 Sam Young MD [address] [facility] [address] [place] [address] Consulting Physician Cardiology 04/30/25 Javier Pham MD [address] [facility] [address] [place] [address] Consulting Physician Pulmonary Disease 04/30/25 documented as of this encounter
--- OUTSIDE RECORDS SUMMARY | 2025-05-16 09:38 | XMS_ITS | Encounter Summary ---
Author Organization [facility] Address [address] [place] [address] Care Team Providers Care Radiology Supervisor Name Role Phone Ellen Rowley MD Primary Care Provider [phone] Reason for Visit * Reason Onset Date Comments Care Management Other 09/10/2024 Initial as sessment/verify face sheet information Encounter Details Date Type Department Care Team (Late st Contact Info) Description 09/10/2024 Telephone [facility] COORDINATION [address] [place] [phone] Mary Ellen Solis, RN Care Management Other [...] care, and heating? Not very hard 09/10/2024 [facility] of Occupat ional Health - Occupational Stress [...] any time in the past 12 m [facility], were you homeless or living in a fdc (including now)? 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
--- OUTSIDE RECORDS SUMMARY | 2025-05-16 09:38 | XMS_ITS | Clinical Summary ---
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
--- OUTSIDE RECORDS SUMMARY | 2025-05-16 09:38 | XMS_ITS | Clinical Summary ---
Author Organization [facility] [place] [facility] Address [address] [place] [address] Care Team Providers Care Layout Artist Name Role Phone Ellen Rowley MD Primary Care Provider [phone] Sam Young MD Unavailable [phone] Javier Pham MD Unavailable [phone] Allergies Active Allergy Reactions Criticality Noted Date Comments Cefadroxil Headache Low 04/11/2019 Medications latanoprost (XALATAN) 0.005 % ophthalmic solution Administer [...] Patient taking differently:25 mg oralDaily, Reported on 05/14/2025 miconazole 2 % powder Apply topically 2 (two) times a day 70 g 11/10/19 25 Active atorvastatin (LIPITOR) 10 mg tabletIndications :Complete heart block (HCC) Take 1 tablet (10 mg total) by mouth nightly 30 tablet 11/30/19 25 Active Additional Information Patient not taking.Reported on 05/02/2025 mupirocin (BACTROBAN) 2 % ointmentIndicatio ns:Achalasia of cardia Apply topically 3 (three) times a day Apply around j tube 22 g 11/30/19 25 Active ondansetron ODT (ZOFRAN-ODT) 4 mg disintegrating tabletIndications :Achalasia of cardia Take 1 tablet (4 mg total) by mouth every 8 (eight) hours as needed for nausea or vomiting 20 tablet 11/30/[address] (PROTONIX) 40 mg EC tablet 04/01/20 25 Active levothyroxine (SYNTHROID) 137 mcg tablet TAKE 1 TABLET BY MOUTH DAILY EXCEPT ON MONDAY TAKE 2 03/07/20 25 Active predniSONE (DELTASONE) 10 mg tablet Take 4 tabs (40mg) daily for 3 days, then 3 tabs (30mg) daily for 3 days, 2 tabs (20mg) daily for 3 days, 1 tab (10 mg) daily for 3 days. 30 tablet 04/30/20 25 Active ipratropium-albut Sang (DUO-NEB) 0.5-2.5 mg/3 mL nebulizer solutionIndicatio ns:Chronic Obstructive Pulmonary Disease with Bronchospasms Take 3 mL by nebulization 4 (four) times a day 180 mL 11 04/30/20 25 Active apixaban (ELIQUIS) 5 mg tabletIndications :Atrial fibrillation, unspecified type (HCC) Take 1 tablet (5 mg total) by mouth 2 (two) times a day 60 tablet 11/30/19 25 Discontinu ed(Stop Taking at Discharge) doxycycline (VIBRAMYCIN) 100 mg capsule Take 1 tablet/capsule (100 mg total) by mouth 2 (two) times a day for 10 days 20 tablet/caps ule 04/30/20 25 025 Active Problems Problem Noted Date Diagnosed Date Bronchiectasis, non-tuberculous 04/30/2025 Cavitary lesion of lung 04/30/2025 Thickening of esophagus 04/30/2025 Patulous lower esophageal sphincter 04/30/2025 Mycobacterium avium infection 04/28/2025 Hemoptysis 04/27/2025 Slow transit constipation 11/13/2024 Assessment & Plan [...] moment. The critical access team from [facility] was also attending to the patient. [...] 11:01 AM CDT): I endorse admission to jail care. The patient is at risk of [...] care. Assessment & Plan (10/01/2024 9:52 AM DIE ATTACHING MACHINE TENDER): I endorse admission to jail care. The patient is at risk of [...] off. Assessment & Plan (10/01/2024 10:08 AM DIE ATTACHING MACHINE TENDER): I have viewed the injury of concern. [...] a.m. Assessment & Plan (10/01/2024 2:24 PM DIE ATTACHING MACHINE TENDER): Hemoglobin lower but overall stable, H&H 8.2/26.0. [...] appointment with thoracic surgery and GI at [facility]. He will retrieve the dates and times and bring those to our medical team. Assessment & Plan (10/03/2024 12:17 PM DIE ATTACHING MACHINE TENDER): Continue Jevity 1.5 tube feeding 60 mL/hour through the jejunostomy tube. Discussed with and dietitian. They are considering bolus feedings prior to discharging home. Assessment & Plan (10/01/2024 10:00 AM DIE ATTACHING MACHINE TENDER): Because of her esophageal achalasia and stenosis [...] daily. Assessment & Plan (10/03/2024 12:17 PM DIE ATTACHING MACHINE TENDER): Continue Synthroid 112 mcg daily. Assessment & Plan (10/01/2024 9:59 AM DIE ATTACHING MACHINE TENDER): This is a chronic problem. We will continue levothyroxine 112 mcg daily. 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 Continue the scripting of latanoprost 1 drop in both eyes once daily at bedtime and timolol 1 drop in both eyes daily. Assessment & Plan (10/03/2024 12:19 PM DIE ATTACHING MACHINE TENDER): We will continue latanoprost and timolol as scripted Assessment & Plan (10/01/2024 10:01 AM DIE ATTACHING MACHINE TENDER): We will continue scripting of latanoprost 0.005%, 1 drop in both eyes daily at bedtime and timolol 0.5% 1 drop in each eye daily. Bladder infection 05/12/2021 Degenerative joint disease of upper arm 05/12/20 Dyslipidemia, goal LDL below 100 05/12/2021 Assessment & Plan (11/27/2024 4:30 PM CDT): - LDL 67 today which is at goal - continue atorvastatin 10 mg daily Assessment & Plan (11/12/2024 11:03 AM CDT): This is chronic, currently stable. Dietary will follow. Assessment & Plan (10/01/2024 9:59 AM DIE ATTACHING MACHINE TENDER): Dietary will evaluate and advise. Hemorrhoids with complication 05/12/2021 History of total left knee replacement (TKR) Left-sided abdominal pain of unknown etiology Obesity, Class I, BMI 30-34.9 05/12/2021 Recurrent urinary tract infection 05/12/2021 Abnormal barium swallow 11/20/2020 Overview (05/12/2021): Added automatically from request for surgery [id number] Achalasia of cardia 11/20/2020 Overview (05/12/2021): Added automatically from request for surgery [id number] Assessment & Plan (11/29/2024 2:05 PM CDT): [...] She will have esophageal motility studies at [facility] tomorrow. She will continue jejunostomy tube feedings as followed by dietary. Assessment & Plan (11/26/2024 4:29 PM CDT): She has an appointment at [facility] on Monday of this week for manometry [...] office Assessment & Plan (10/03/2024 12:18 PM DIE ATTACHING MACHINE TENDER): She now has a follow up appointment scheduled with the hearing aid technician and thoracic surgeon. Assessment & Plan (10/01/2024 2:24 PM DIE ATTACHING MACHINE TENDER): Status post J-tube placement. Tolerating continuous tube [...] Colace. Assessment & Plan (10/01/2024 10:02 AM DIE ATTACHING MACHINE TENDER): She currently is unable eat. She is [...] (05/12/2021): Added automatically from request for surgery [id number] Graves disease 05/25/2020 Dysphagia 04/17/2020 Overview (05/12/2021): Added automatically from request for surgery [id number] Assessment & Plan (11/24/2024 2:39 PM CDT): [...] intervention. Assessment & Plan (10/01/2024 10:00 AM DIE ATTACHING MACHINE TENDER): Follow up labs are ordered. Essential hypertension [...] dizziness/lightheadedness). Assessment & Plan (10/02/2024 8:45 AM DIE ATTACHING MACHINE TENDER): BP remains lower, but pt is asymptomatic. Encouraged continue clear liquid intake, monitor for orthostasis Assessment & Plan (10/01/2024 9:59 AM DIE ATTACHING MACHINE TENDER): We will monitor serial vital signs for trending. Our goal will be us the systolic blood pressures of 150 and a diastolic blood pressure below 90. Resolved Problems Problem Noted Date Diagnosed Date Resolved Date Pressure injury 11/14/2024 11/14/2024 Anemia 10/22/2024 11/12/2024 Well child examination 05/12/202110/01 Encounters Date Type Department Care Team Description 05/15/2025 9:45 AM CDT Therapy [facility] Medical Office [facility] 1 OP Physical Therapy [address] [place] [phone] Anita, Rajesh, PT Primary osteoarthritis of both knees (Primary Dx); Chronic pain of both knees 05/15/2025 9:45 AM CDT Therapy [facility] Medical Office [facility] 1 OP Physical Therapy [address] [place] [phone] Range, Danielle, OUTSIDE SALES PROFESSIONAL Primary osteoarthritis of both knees (Primary Dx); Chronic pain of both knees; Unilateral primary osteoarthritis, left knee; Pain in left ankle and joints of left foot 05/14/2025 7:01 AM CDT - 05/14/2025 11:59 PM CDT Hospital Encounter [facility] Cardiac Catheterization Lab [address] [place] [phone] Sam Young MD Atrial fibrillation, unspecified type (HCC); Nonrheumatic mitral valve regurgitation Discharge Disposition: Discharge to home or self care 05/14/2025 Cardiology Conference [facility] Non-invasive Cardiac Diagnostic Testing [address] [place] [address] Nasir Esquivel RN 05/12/2025 12:45 PM CDT Therapy [facility] Medical Office Bldg 1 OP Physical Therapy [address] [place] [address] [place] [phone] Edson Hammond, OUTSIDE SALES PROFESSIONAL Primary osteoarthritis of both knees (Primary Dx); Chronic pain of both knees 05/07/2025 12:45 PM CDT Therapy [facility] Medical Office Bldg 1 OP Physical Therapy [address] [place] [address] [place] [address] Edson Hammond, OUTSIDE SALES PROFESSIONAL Primary osteoarthritis of both knees (Primary Dx); Chronic pain of both knees 05/07/2025 Telephone [facility] Pulmonology [address] [facility] [address] [place] [address] [phone] Javier Pham MD 05/06/2025 Telephone [facility] Pre Anesthesia Testing [address] [place] [address] Maye Emmanuel RN 05/06/2025 Orders Only [facility] [address] [place] [phone] Sam Young MD Atrial fibrillation, unspecified type (HCC) (Primary Dx); Mitral valve insufficiency, unspecified etiology 05/06/2025 Orders Only [facility] Non-invasive Cardiac Diagnostic Testing [address] [place] [address] Sam Young MD Atrial fibrillation, unspecified type (HCC) (Primary Dx); Nonrheumatic mitral valve regurgitation 2025 12:45 PM CDT Therapy [facility] Medical Office Bldg 1 OP Physical Therapy [address] [facility] [address] [place] [phone] Edson Hammond, OUTSIDE SALES PROFESSIONAL Unilateral primary osteoarthritis, left knee (Primary Dx); Primary osteoarthritis of both knees; Chronic pain of both knees 2025 8:00 AM CDT Ancillary Procedure [facility] Cardiology [address] [place] [phone] Sinus node dysfunction (HCC); Tachy-lidia syndrome; Complete heart block (HCC); Pacemaker 05/02/2025 11:15 AM CDT Office Visit [facility] Cardiology [address] [place] [phone] Sam Young MD Paroxysmal atrial fibrillation (HCC) (Primary Dx) 04/27/2025 3:16 PM CDT - 04/30/2025 1:44 PM CDT Hospital Encounter [facility] 4 Med Surg [address] [place] [address] Nasir Moncada DO Singh, Anjanya Devendra, MD Nyquist, David J., MD Hemoptysis (Primary Dx); ANDRE (acute kidney injury); Atrial fibrillation, unspecified type (HCC) [I48.91]; Mycobacterium avium infection (HCC) [A31.0]; Bronchiectasis, non-tuberculous (HCC); Primary osteoarthritis of both knees; Chronic pain of both knees; Thickening of esophagus Discharge Disposition: Discharge to home or self care 04/23/2025 12:45 PM CDT Therapy [facility] Medical Office [facility] 1 OP Physical Therapy [address] [place] [phone] Edson Hammond, OUTSIDE SALES PROFESSIONAL Unilateral primary osteoarthritis, left knee (Primary Dx); Pain in left ankle and joints of left foot 04/21/2025 1:30 PM CDT Therapy [facility] Medical Office [facility] 1 OP Physical Therapy [address] [place] [phone] Edson Hammond, OUTSIDE SALES PROFESSIONAL Unilateral primary osteoarthritis, left knee (Primary Dx); Pain in left ankle and joints of left foot 04/16/2025 12:45 PM CDT Therapy [facility] Medical Office [facility] 1 OP Physical Therapy [address] [place] [address] [place] [phone] Edson Hammond, OUTSIDE SALES PROFESSIONAL Unilateral primary osteoarthritis, left knee (Primary Dx); Pain in left ankle and joints of left foot 04/14/2025 1:30 PM CDT Therapy [facility] Medical Office [facility] 1 OP Physical Therapy [address] [place] [address] [place] [phone] Edson Hammond, OUTSIDE SALES PROFESSIONAL Unilateral primary osteoarthritis, left knee (Primary Dx); Pain in left ankle and joints of left foot 04/09/2025 12:45 PM CDT Therapy [facility] Office [facility] 1 OP Physical Therapy [address] [place] [phone] Edson Hammond, OUTSIDE SALES PROFESSIONAL Unilateral primary osteoarthritis, left knee (Primary Dx); Pain in left ankle and joints of left foot 04/07/2025 12:45 PM CDT Therapy [facility] Medical Office [facility] 1 OP Physical Therapy [address] [place] [phone] Rajesh Howard, PT Unilateral primary osteoarthritis, left knee (Primary Dx) 04/03/2025 2:45 PM CDT Office Visit [facility] Infectious Disease [address] [facility] [address] [place] [address] Onesimo Welch MD 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); Achalasia 04/02/2025 11:00 AM CDT Therapy [facility] Medical Office [facility] 1 OP Physical Therapy [address] [place] [address] [place] [phone] Dipti Ruiz, PT Unilateral primary osteoarthritis, left knee (Primary Dx); Pain in left ankle and joints of left foot 04/02/2025 Telephone [facility] Cardiology [address] [facility] [address] [place] [phone] Sam Young MD AFL with brief RVR 03/26/2025 2:30 PM CDT Therapy [facility] Medical Office Bldg 1 OP Physical Therapy [address] [place] [address] [place] [address] [phone] Range, Danielle, OUTSIDE SALES PROFESSIONAL Unilateral primary osteoarthritis, left knee (Primary Dx); Pain in left ankle and joints of left foot 03/18/2025 8:00 AM CDT Therapy [facility] Medical Office Bl 1 OP Physical Therapy [address] [place] [address] [place] [phone] Anita, Rajesh, PT Unilateral primary osteoarthritis, left knee (Primary Dx); Pain in left ankle and joints of left foot 03/18/2025 Plan of Care Documentation [facility] 1 OP Physical Therapy [address] [place] [address] [place] [phone] 02/27/2025 2:12 PM CDT - 02/27/2025 11:59 PM CDT Hospital Encounter [facility] [address] [place] [address] Discharge Disposition: Discharge to home or self care from Last 3 Months Immunizations Immunization Administration [...] Procedure: INSERT TEMPORARY PACEMAKER (PPM) SINGLE LEAD [id number]; Surgeon: Feliciano Peguero MD; Location: B EP LAB; Service: Cardiovascular; Laterality: N/A; CARDIAC ELECTROPHYSIOLOGY PROCEDURE 10/31/2024 Left Procedure: IMPLANT DUAL CHAMBER PPM SYSTEM W/ DUAL ELECTRODES (GEN AND LEADS, NEW OR REPLACE) [id number]; Surgeon: Feliciano Peguero MD; Location: B EP [...] often do you attend chur ch or gnosticist services? Never 10/31/2024 Do you belong to any clubs o r organizations such as denominational groups, unions, fraternal or athletic groups, or [...] time in the past 12 m [facility], were you homeless or living in a fci (including now)? No 11/05/2024 Social Connection and Isolation Panel Answer Date Recorded In a typical week, how many times do you talk on the phone with family, friends, or neighbors? More than three times a week 04/28/2025 How often do you get togethe r with friends or relatives? More than three times a week 04/28/2025 How often do you attend chur or gnosticist services? Never 04/28/2025 Do you belong to any clubs o r organizations such as denominational groups, unions, fraternal or athletic groups, or [...] time in the past 12 m [facility], were you homeless or living in a fci (including now)? No 04/28/2025 [facility] Utilities Answer Date Recorded In the past [...] on file Legal Sex Female 5:32 PM DIE ATTACHING MACHINE TENDER Gender Identity Not on file [...] Mass Index 24.53 05/14/2025 7:37 AM CDT Plan of Treatment Health Maintenance Due Date Last Done Comments Albumin Creatinine Ratio, Urine 1950 Hepatitis C Screening 1950 Dilated Eye Exam 1950 Foot Exam 1950 DTaP/Tdap/Td Vaccine (1 - Tdap) 1959 Hepatitis B Screening 1966 Well Visit 65+ 2013 Pneumococcal vaccine 65+ (2 of 2 - PCV) 04/01/2021 04/01/2020 Covid-19 Vaccine (4 - 2024-2 6 season) 2025 05/18/2021, 10/10/2020, 09/18/2020 Influenza Vaccine (#1) 2025 , 04/18/2023, 04/10/2023, Additional history exists Hemoglobin A1C 10/25/2025 04/27/2025, 08/31, 07/16/2019 Depression Screening 10/30/2025 10/30/2024, 10/30/2024, 10/14/2024, Additional history exists Lipid Panel 12/09/2025 12/09/2024, 10/31, 02/15/2024, Additional history exists eGFR 04/30/2026 04/30/2025, 04/02, 04/28/2025, Additional history exists Fall Risk Assessment 05/14/2026 05/14/2025 Osteoporosis Screening-Bone Density Scan 07/11/2026 07/11/2024, 05/19/2022, 09/02/2020, Additional history exists Zoster Vaccine Completed 05/20/2024, 02/27/2024 Breast Cancer Screening-Mammogram Discontinued 06/28/2024, 06/28/2024, 06/27/2023, Additional history exists Medical Devices Implanted Type Area Medical Records Analyst Device Identifier Shelf Expiration Date Model / Serial / Lot Knee Components Right: Knee [employer] Baron Active Fixation Steroid Eluting Is 1 Connector Latex Free Sterile Right Atrial Right Atrial Ingevity Plus 59cm 7842 - [id number] Implanted:Qty: 1 on 10/31/2024 by Feliciano Peguero MD at [facility] [employer] Baron [id number] / / [employer] Baron Lead 7841 Endocardial Pacing Mr Is-1 Bipolar Connection 7841 - [id number] - [id number] Implanted:Qty: 1 on 10/31/2024 by Feliciano Peguero MD at [facility] [employer] Baron [id number] 09/09/2026 7841 / [id number] / [employer] Latitude Nxt Pacesafe Easyview 4.45x5.02cm 2 Chamber Is1 L311 - [id number] - [id number] Implanted:Qty: 1 on 10/31/2024 by Feliciano Peguero MD at [facility] [employer] [id number] 06/12/2026 L311 / [id number] / Procedures Procedure Name Priority Date/Time Associated Diagnosis Comments TRANSESOPHAGEAL ECHO (BENEDICT) W DOPPLER/CF WO CONTRAST Routine 05/14/2025 12:00 PM CDT Atrial fibrillation, unspecified type (HCC) Nonrheumatic mitral valve regurgitation POCT GLUCOSE DEVICE Routine 05/14/2025 7 :11 AM CDT DEVICE CHECK - REMOTE Routine 2025 9:16 AM CDT Sinus node dysfunction (HCC) Tachy-lidia syndrome Complete heart block (HCC) Pacemaker POCT GLUCOSE DEVICE Routine 04/30/2025 11:56 AM CDT HEMOGLOBIN AND HEMATOCRIT Timed 04/30/2025 8:40 AM CDT POCT GLUCOSE DEVICE Routine 04/30/2025 8 :39 AM CDT XR CHEST 1 VIEW IP Routine 04/30/2025 8:37 AM CDT EGFR Routine 04/30/2025 3:43 AM CDT DIFFERENTIAL AUTO Routine 04/30/2025 3:4 3 AM CDT VITAMIN D 25 HYDROXY Routine 04/30/2025 3:43 AM CDT IRON PROFILE W/ IBC Routine 04/30/2025 3 :43 AM CDT VITAMIN B12 Routine 04/30/2025 3:43 AM CDT FOLATE Routine 04/30/2025 3:43 AM CDT CRP (ACUTE PHASE) Routine 04/30/2025 3:4 3 AM CDT COMPREHENSIVE METABOLIC PANEL Routine 04/30/2025 3:43 AM CDT CBC WITH AUTO DIFFERENTIAL Routine 04/30/2025 3:43 AM CDT POCT GLUCOSE DEVICE Routine 04/29/2025 8 :28 PM CDT POCT GLUCOSE DEVICE Routine 04/29/2025 4 :57 PM CDT HEMOGLOBIN AND HEMATOCRIT Timed 04/29/2025 2:31 PM CDT POCT GLUCOSE DEVICE Routine 04/29/2025 11:27 AM CDT POCT GLUCOSE DEVICE Routine 04/29/2025 7 :39 AM CDT HEMOGLOBIN AND HEMATOCRIT Timed 04/29/2025 6:37 AM CDT POCT GLUCOSE DEVICE Routine 04/29/2025 4 :52 AM CDT EGFR Routine 04/29/2025 2:28 AM CDT DIFFERENTIAL AUTO Routine 04/29/2025 2:2 8 AM CDT CBC WITH AUTO DIFFERENTIAL Routine 04/29/2025 2:28 AM CDT BASIC METABOLIC PANEL Routine 04/29/2025 2:28 AM CDT POCT GLUCOSE DEVICE Routine 04/29/2025 12:35 AM CDT POCT GLUCOSE DEVICE Routine 04/28/2025 10:18 PM CDT POCT GLUCOSE DEVICE Routine 04/28/2025 9 :13 PM CDT HEMOGLOBIN AND HEMATOCRIT Timed 04/28/2025 6:49 PM CDT POCT GLUCOSE DEVICE Routine 04/28/2025 4 :11 PM CDT DIFFERENTIAL AUTO Routine 04/28/2025 12:38 PM CDT CBC WITH AUTO DIFFERENTIAL Routine 04/28/2025 12:38 PM CDT POCT GLUCOSE DEVICE Routine 04/28/2025 12:07 PM CDT POCT GLUCOSE DEVICE Routine 04/28/2025 7 :53 AM CDT ECG 12-LEAD Routine 04/28/2025 7:25 AM CDT POCT GLUCOSE DEVICE Routine 04/28/2025 4 :05 AM CDT EGFR Routine 04/28/2025 3:50 AM CDT DIFFERENTIAL AUTO Routine 04/28/2025 3:5 0 AM CDT CBC WITH AUTO DIFFERENTIAL Routine 04/28/2025 3:50 AM CDT BASIC METABOLIC PANEL Routine 04/28/2025 3:50 AM CDT POCT GLUCOSE DEVICE Routine 04/28/2025 12:21 AM CDT EGFR Timed 04/28/2025 12:01 AM CDT BASIC METABOLIC PANEL Timed 04/28/2025 12:01 AM CDT HEMOGLOBIN AND HEMATOCRIT Timed 04/28/2025 12:01 AM CDT POCT GLUCOSE DEVICE Routine 04/27/2025 7 :45 PM CDT HEMOGLOBIN AND HEMATOCRIT Timed 04/27/2025 6:37 PM CDT ECG 12-LEAD Routine 04/27/2025 5:[address] CHEST PE W CONTRAST ED 04/27/2025 4:26 PM CDT SEPSIS LACTATE WITH REFLEX STAT 04/27/2025 4:10 PM CDT XR CHEST 1 VIEW ED 04/27/2025 3:51 PM CDT B ABO / RH CONFIRMATION TESTING STAT 04/27/2025 3:37 PM CDT MAGNESIUM STAT 04/27/2025 3:04 PM CDT PHOSPHORUS STAT 04/27/2025 3:04 PM CDT HEMOGLOBIN A1C Routine 04/27/2025 3:04 PM CDT PRO B-TYPE NATRIURETIC PEPTIDE STAT 04/27/2025 3:04 PM CDT EGFR STAT 04/27/2025 3:04 PM CDT DIFFERENTIAL AUTO STAT 04/27/2025 3:0 4 PM CDT ANTIBODY SCREEN STAT 04/27/2025 3:04 PM CDT ABO/RH STAT 04/27/2025 3:04 PM CDT TYPE AND SCREEN STAT 04/27/2025 3:04 PM CDT COMPREHENSIVE METABOLIC PANEL STAT 04/27/2025 3:04 PM CDT CBC WITH AUTO DIFFERENTIAL STAT 04/27/2025 3:[address] CHEST W CONTRAST Schedule Routine, Read Routine (OP Routine) 02/27/2025 2:29 PM CDT Mycobacterium avium infection (HCC) POCT LIPID PANEL Routine 11/27/2024 9:38 AM CDT Dyslipidemia, goal LDL below 100 DEXA AXIAL SKELETON BONE DENSITY 1 OR MORE SITES Routine 06/08/2015 2:48 PM DIE ATTACHING MACHINE TENDER from Last 3 Months or Most Recently Relevant to Health Maintenance Results * TRANSESOPHAGEAL ECHO (BENEDICT) W DOPPLER/CF [...] appendage measurement with no evidence of thrombus us Sam Young MD CV ECHO PROCEDURES Final Re sult * POCT glucose (05/14/2025 7:11 AM CDT) Glucose, POC 96 70 - 199 mg/dL Blood 05/14/2025 7:11 AM CDT 05/14/2025 7:11 AM CDT Sam Young MD LAB POCT ORDERABLES - DEVIC E Final Result LISA [facility]AM [id number] [address] Department [place] [address] * DEVICE CHECK - REMOTE (2025 9:16 AM CDT) Anatomical Region Laterality Modality Other Narrative 05/10/2025 12:54 PM CDT Table formatting from the original result was not included. Patient ID: Willow Najera is a 75 y.o. female This patient has a(n) [employer] dual chamber pacemaker. They had a routine remote transmission on 2025. Device implant indications: SND, PAF Interrogation of the patient's device demonstrates the following: Battery Status: 6 years to RICK. Presenting EGM: AFL/HYDROPRESS OPERATOR 70 bpm w/ PVCs Mode: DDD 70/120 bpm Device Settings: Right Atrium Right Ventricle Sensitivity 0.25 mV 0.6 mV Pacing outputs 3.5 V @ 0.4 ms 2.1 V @ 0.4 ms Testing Measurements: Right Atrium Right Ventricle Sensitivity 5.3 mV 6.3 mV Impedance 565 ohms 741 ohms Pacing threshold AFL 1.4 V @ 0.4 ms Pacing % 0% 18% Episodes since last cleared: AT/AF [place] 100% 342 high ventricular rate episode(s): viewable episodes appear mix of 1:1 AT and ventricular bigeminy/multiple PVCs, episodes typically occur in clusters, most recently on 04/12/2025. Comments: Programming appropriate for device measurements. Measured data stable. See attached report. Medications: Anticoagulant(s): Eliquis discontinued last week/hemoptysis -- being worked up for Amulet Antiarrhythmic(s): Lopressor 25 mg daily Plan: Remote device checks quarterly, as scheduled. In-office device check scheduled on 02/05/2026. Glendy Sandhu, RN ATTESTATION I have reviewed the device interrogation report associated with this encounter in detail. I agree with the documentation recorded/scanned into the electronic medical record. Recommendations: Continue current device follow-up. Sam Young MD Sam Young MD CV CARDIAC SERVICES PROCEDU RES Final Result * POCT glucose (04/30/2025 11:56 AM CDT) Glucose, POC 133 70 - 199 mg/dL Comment:Testing performed by : [address] [address] Blood 04/30/2025 11:5 6 AM CDT 04/30/2025 11:56 AM CDT Jerel Hickey MD LAB POCT ORDERABLES - DEVICE Final Result Performing Organization Address [facility] Co de Phone Number [address] [place] [address] * (ABNORMAL) Hemoglobin and hematocrit (04/30/2025 8:40 AM CDT) Pathologist [facility] Hgb 9.7(L) 11.9 - 15.5 g/dL Comment:Testing performed by : [address] [address] Hct 29.1(L) 35.6 - 45.5 % [facility] Comment:Testing performed by : [address] [address] Blood 04/30/2025 8:40 AM CDT 04/30/2025 8:44 AM CDT Duke Swain MD LAB BLOOD ORDERABLES F inal Result Performing Organization Address City/[facility]/ZIP Co de Phone Number [address] [employer] [place] [address] * POCT glucose (04/30/2025 8:39 AM CDT) Glucose, POC 91 70 - 199 mg/dL Comment:Testing performed by : [facility], [address] [place] [address]., [id number] Glucose comment 1 RN/MD Notified LISA ANDREW Comment:Testing performed by : [facility], [address] [place] [address]., [id number] Blood 04/30/2025 8:39 AM CDT 04/30/2025 8:39 AM CDT us Jerel Hickey MD LAB POCT ORDERABLES - DEVICE Final Result LISA ANDREW [address] [facility] Department [place] [address] * XR Chest 1 View (04/30/2025 8:37 AM CDT) Anatomical Region Laterality Modality Body, Chest N/A Computed Radiogr aphy 04/30/2025 9:42 AM CDT Narrative 04/30/2025 9:45 AM CDT EXAM DESCRIPTION: XR CHEST 1 VIEW REASON FOR STUDY: dyspnea Admit 04/27 with hemoptysis. Follow up dyspnea TECHNIQUE: AP portable radiographic view(s) of the chest. COMPARISON: 04/27/2025, 02/27/2025, 11/05/2024 FINDINGS: LUNGS: There is coarsening of the interstitial markings within both lungs. There has been interval improvement in the airspace opacity demonstrated within the left base on prior examination. There is patchy airspace opacity within the right upper lobe. There is no large effusion. There is no pneumothorax. HEART/MEDIASTINUM: Cardiac silhouette is borderline enlarged. Pulmonary vascularity is similar. Mediastinal contour stable given patient rotation. LINES/TUBES: Left-sided pacemaker, stable. BONES: There is no acute osseous abnormality. Osteoarthritis of the shoulders. Thoracic spondylosis. IMPRESSION: 1. Coarsening of interstitial markings within both lungs. Interval improvement in opacity demonstrated in the left base on prior radiograph. There is patchy airspace opacity within the right upper lobe. Continued attention on follow-up recommended. No large effusion or pneumothorax THIS IS AN ELECTRONICALLY VERIFIED FINAL REPORT 04/30/2025 9:45 AM - Electronically signed by Rose Cornell M.D. TW: TW Report ID: [id number] Reading Location: [id number] Procedure Note Rose Cornell MD - 04/30/2025 EXAM DESCRIPTION: XR CHEST 1 VIEW REASON FOR STUDY: dyspnea Admit 04/27 with hemoptysis. Follow up dyspnea TECHNIQUE: AP portable radiographic view(s) of the chest. COMPARISON: 04/27/2025, 02/27/2025, 11/05/2024 FINDINGS: LUNGS: There is coarsening of the interstitial markings withinboth lungs. There has been interval improvement in the airspace opacity demonstrated within the left base on prior examination. There is patchy airspace opacity within the right upper lobe. There is no large effusion. There is no pneumothorax. HEART/MEDIASTINUM: Cardiac silhouette is borderline enlarged. Pulmonary vascularity is similar. Mediastinal contour stable given patientrotation. LINES/TUBES: Left-sided pacemaker, stable. BONES: There is no acute osseous abnormality. Osteoarthritis of the shoulders. Thoracic spondylosis. IMPRESSION: 1. Coarsening of interstitial markings within both lungs. Interval improvement in opacity demonstrated in the left base on prior radiograph. There is patchy airspace opacity within the right upper lobe. Continued attention on follow-up recommended. No large effusion or pneumothorax THIS IS AN ELECTRONICALLY VERIFIED FINAL REPORT 04/30/2025 9:45 AM - Electronically signed by Rose Cornell M.D. TW: Report ID: [id number] Reading Location: [place] [address] Duke Swain MD IMG XR PROCEDURES Samantha l Result * (ABNORMAL) eGFR (04/30/2025 3:43 AM CDT) eGFR 58(L) >=60 mL/min/1. 73 m2 Comment: Interpretive Data Reference Interval Normal >/= [...] Current interpretive data was last reviewed 2021. Testing performed by: [address] [address] Blood 04/30/2025 3:43 AM CDT 04/30/2025 4:18 AM CDT Duek Swain MD LAB BLOOD ORDERABLES F inal Result LISA 27[address] [facility] Department [place] [address] * Differential, auto (04/30/2025 3:43 AM CDT) Pathologist [facility] Neutrophil abs 3.17 1.50 - 6.50 K/cumm Comment:Testing performed by : [address] [address] Imm gran abs 0.01 0.00 - 0.10 K/cumm LISA ANDREW Comment:Testing performed by : [address] [address] Lymphocyte abs 1.55 0.80 - 3.30 K/cumm LISA Comment:Testing performed by : [address] [address] Monocyte abs 0.46 0.20 - 0.80 K/cumm [facility] Comment:Testing performed by : [address] [address] Eosinophil abs 0.00 0.00 - 0.50 K/cumm [facility] Comment:Testing performed by : [address], [place]., [address] Basophil abs 0.02 0.00 - 0.10 K/cumm [facility] Comment:Testing performed by : [address] [address] Neutrophil pct 60.8 % [facility] Comment: Interpretive Data Percent cell count reference ranges are not reported, since discordance with absolute values may lead to misinterpretation of CBC data. Current Interpretive Data was last revised on 2017. Testing performed by: [address] [address] Imm gran pct 0.2 % [facility] Comment: Interpretive Data Percent cell count reference ranges are not reported, since discordance with absolute values may lead to misinterpretation of CBC data. Current Interpretive Data was last revised on 2017. Testing performed by: [address] [address] Lymphocyte pct 29.8 % [facility] Comment: Interpretive Data Percent cell count reference ranges are not reported, since discordance with absolute values may lead to misinterpretation of CBC data. Current Interpretive Data was last revised on 2017. Testing performed by: [address] [address] Monocyte pct 8.8 % [facility] Comment: Interpretive Data Percent cell count reference ranges are not reported, since discordance with absolute values may lead to misinterpretation of CBC data. Current Interpretive Data was last revised on 2017. Testing performed by: [address] [address] Eosinophil pct 0.0 % [facility] Comment: Interpretive Data Percent cell count reference ranges are not reported, since discordance with absolute values may lead to misinterpretation of CBC data. Current Interpretive Data was last revised on 2017. Testing performed by: [address] [address] Basophil pct 0.4 % LISA Comment: Interpretive Data Percent cell count reference ranges are not reported, since discordance with absolute values may lead to misinterpretation of CBC data. Current Interpretive Data was last revised on 2017. Testing performed by: [address] [address] Blood 04/30/2025 3:43 AM CDT 04/30/2025 4:18 AM CDT us Carlie Leon ASSISTANT CASE MANAGER LAB BLOOD ORDERABLES Final Result Performing Organization Address [facility] Co de Phone Number LISA [address] [place] [address] * Iron profile w/ IBC (04/30/2025 3:43 AM CDT) Iron 85 35 - 145 mcg/dL Comment:Testing performed by : [address] [address] TIBC 264 250 - 400 mcg/dL LISA Comment:Testing performed by : [address] [address] Transferrin saturation 32 20 - 50 % LISA Comment:Testing performed by : [address] [address] Blood 04/30/2025 3:43 AM CDT 04/30/2025 4:18 AM CDT us Jerel Hickey MD LAB BLOOD ORDERABLES Final R esult Performing Organization Address [facility] Co de Phone Number [address] [place] [address] * (ABNORMAL) CBC with auto differential (04/30/2025 3:43 AM CDT) WBC 5.21 3.80 - 9.90 K/cumm Comment:Testing performed by : [address] [address] Hgb 8.9(L) 11.9 - 15.5 g/dL LISA Comment:Testing performed by : [address], [address] Hct 26.5(L) 35.6 - 45.5 % LISA Comment:Testing performed by : [address] [address] Plt 201 150 - 400 K/cumm LISA Comment:Testing performed by : [address] [address] MPV 10.3 9.1 - 12.3 fL LISA Comment:Testing performed by : [address], [address] RBC 2.78(L) 3.90 - 5.20 M/cumm LISA Comment:Testing performed by : [address], [address] MCV 95.3 81.3 - 96.4 fL LISA Comment:Testing performed by : [address] [address] MCH 32.0 27.1 - 33.3 pg LISA Comment:Testing performed by : [address], [address] MCHC 33.6 32.3 - 35.7 g/dL LISA Comment:Testing performed by : [address], [address] RDW CV 13.5 11.1 - 14.9 % LISA Comment:Testing performed by : [address], [address] RDW SD 47.2 35.7 - 48.1 fL LISA Comment:Testing performed by : [address], [address] NRBC abs 0.00 0.00 - 0.01 K/cumm LISA Comment:Testing performed by : [address] [address] Blood 04/30/2025 3:43 AM CDT 04/30/2025 4:18 AM CDT us Carlie Leon NP LAB BLOOD ORDERABLES Final Result Performing Organization Address [facility] Co de Phone Number [address] [address] * Vitamin D 25 hydroxy (04/30/2025 3:43 AM CDT) Vitamin D 25-OH 80.0 30.0 - 80.0 ng/mL Blood 04/30/2025 3:43 AM CDT 04/30/2025 6:21 AM CDT Jerel Hickey MD LAB BLOOD ORDERABLES Final R esult Performing Organization Address [facility] Co de Phone Number [address] [address] * CRP (acute phase) (04/30/2025 3:43 AM CDT) CRP 0.9 <=10.0 mg/L Comment:Testing performed by : [address] [address] Blood 04/30/2025 3:43 AM CDT 04/30/2025 4:18 AM CDT Duke Swain MD LAB BLOOD ORDERABLES F inal Result Performing Organization Address [facility] Co de Phone Number [address] [address] * Folate (04/30/2025 3:43 AM CDT) Folic acid >20.0 >=5.0 ng/mL Comment:Testing performed by : [address] [address] Blood 04/30/2025 3:43 AM CDT 04/30/2025 4:18 AM CDT Jerel Hickey MD LAB BLOOD ORDERABLES Final R esult Performing Organization Address City/[facility] Co de Phone Number [facility] [address] [facility] [place] [address] * Vitamin B12 (04/30/2025 3:43 AM CDT) Pathologist [facility] Vitamin B12 816 230 - 1,250 pg/mL Comment:Testing performed by : [address] [address] Blood 04/30/2025 3:43 AM CDT 04/30/2025 4:18 AM CDT Jerel Hickey MD LAB BLOOD ORDERABLES Final R esult Performing Organization Address [facility] Co de Phone Number [place] [id number] [facility] [place] [address] * (ABNORMAL) Comprehensive metabolic panel (04/30/2025 3:43 AM CDT) [facility] Sodium 135 135 - 145 mmol/L Comment:Testing performed by : [address] [address] Potassium, pl 4.4 3.3 - 4.9 mmol/L LISA Comment:Testing performed by : [address] [address] Chloride 103 97 - 110 mmol/L LISA Comment:Testing performed by : [address] [address] CO2 20(L) 22 - 32 mmol/L LISA Comment:Testing performed by : [address] [address] Anion gap 12 2 - 15 mmol/L LISA Comment:Testing performed by : [address] [address] BUN 38(H) 6 - 25 mg/dL LISA Comment:Testing performed by : [address] [address] Creatinine 1.00 0.60 - 1.10 mg/dL LISA Comment:Testing performed by : [address] [address] Glucose 98 70 - 199 mg/dL LISA Comment: Interpretive [...] Current interpretive data was last revised 2022. Testing performed by: [address] [address] Calcium 8.5 8.5 - 10.3 mg/dL LISA Comment:Testing performed by : [address] [address] Bilirubin, total 0.4 0.1 - 1.2 mg/dL LISA Comment:Testing performed by : [address] [address] Protein, pl 6.9 6.5 - 8.5 g/dL LISA Comment:Testing performed by : [address] [address] Albumin 3.6 3.5 - 5.0 g/dL LISA Comment:Testing performed by : [address] [address] Alk phos 186(H) 40 - 130 Units/L LISA Comment:Testing performed by : [address] [address] ALT 24 7 - 45 Units/L LISA Comment:Testing performed by : [address] [address] AST 23 10 - 45 Units/L LISA Comment:Testing performed by : [address] [address] Blood 04/30/2025 3:43 AM CDT 04/30/2025 4:18 AM CDT us Duke Swain MD LAB BLOOD ORDERABLES F inal Result Performing Organization Address [facility] Co de Phone Number KATH[address] [address] * POCT glucose (04/29/2025 8:28 PM CDT) [facility] Signature Glucose, POC 158 70 - 199 mg/dL Comment:Testing performed by : [address] [address] Glucose comment 1 RN/MD Notified LISA Comment:Testing performed by : [address] [address] Blood 04/29/2025 8:28 PM CDT 04/29/2025 8:28 PM CDT us Jerel Hickey MD LAB POCT ORDERABLES - DEVICE Final Result Performing Organization Address [facility] Co de Phone Number [address] [address] * POCT glucose (04/29/2025 4:57 PM CDT) [facility] Glucose, POC 159 70 - 199 mg/dL Comment:Testing performed by : [address] [address] Glucose comment 1 RN/MD Notified LISA Comment:Testing performed by : [address] [address] Blood 04/29/2025 4:57 PM CDT 04/29/2025 4:57 PM CDT us Jerel Hickey MD LAB POCT ORDERABLES - DEVICE Final Result Performing Organization Address [facility] Co de Phone Number [address] [address] * (ABNORMAL) Hemoglobin and hematocrit (04/29/2025 2:31 PM CDT) Hgb 9.8(L) 11.9 - 15.5 g/dL Comment:Testing performed by : [address] [address] Hct 29.7(L) 35.6 - 45.5 % LISA Comment:Testing performed by : [address] [address] Blood 04/29/2025 2:31 PM CDT 04/29/2025 2:52 PM CDT us Carlie Leon ASSISTANT CASE MANAGER LAB BLOOD ORDERABLES Final Result Performing Organization Address City/[facility]/ZIP Co de Phone Number [address] [place] [address] * POCT glucose (04/29/2025 11:27 AM CDT) [facility] Signature Glucose, POC 116 70 - 199 mg/dL Comment:Testing performed by : [address] [address] Blood 04/29/2025 11:2 7 AM CDT 04/29/2025 11:27 AM CDT us Jerel Hickey MD LAB POCT ORDERABLES - DEVICE Final Result Performing Organization Address City/[facility] Co de Phone Number [address] [place] [address] * POCT glucose (04/29/2025 7:39 AM CDT) Glucose, POC 111 70 - 199 mg/dL Comment:Testing performed by : [address] [address] Blood 04/29/2025 7:39 AM CDT 04/29/2025 7:39 AM CDT Jerel iHckey MD LAB POCT ORDERABLES - DEVICE Final Result Performing Organization Address City/[facility]/ZIP Co de Phone Number [facility] [address] [place] [address] * (ABNORMAL) Hemoglobin and hematocrit (04/29/2025 6:37 AM CDT) [facility] Hgb 9.1(L) 11.9 - 15.5 g/dL Comment:Testing performed by : [address] [address] Hct 26.7(L) 35.6 - 45.5 % LISA Comment:Testing performed by : [address] [address] Blood 04/29/2025 6:37 AM CDT 04/29/2025 6:49 AM CDT us Carlie Leon NP LAB BLOOD ORDERABLES Final Result Performing Organization Address City/[facility] Co de Phone Number [address] [address] * POCT glucose (04/29/2025 4:52 AM CDT) [facility] Glucose, POC 118 70 - 199 mg/dL Comment:Testing performed by : [address] [address] Glucose comment 1 RN/MD Notified LISA Comment:Testing performed by : [address] [address] Blood 04/29/2025 4:52 AM CDT 04/29/2025 4:52 AM CDT us Cristino Bishop MD LAB POCT ORDERABLES - DEVICE Final Result [place] [id number] [place] [address] * (ABNORMAL) eGFR (04/29/2025 2:28 AM CDT) [facility] eGFR 56(L) >=60 mL/min/1. 73 m2 Comment: Interpretive Data Reference Interval Normal >/= [...] Current interpretive data was last reviewed 2021. Testing performed by: [address] [address] Blood 04/29/2025 2:28 AM CDT 04/29/2025 2:51 AM CDT us Carlie Leon NP LAB BLOOD ORDERABLES Final Result LISA [address] [facility] Department [place] [address] * Differential, auto (04/29/2025 2:28 AM CDT) Neutrophil abs 2.79 1.50 - 6.50 K/cumm Comment:Testing performed by : [address] [address] Imm gran abs 0.02 0.00 - 0.10 K/cumm LISA Comment:Testing performed by : [address] [address] Lymphocyte abs 1.21 0.80 - 3.30 K/cumm LISA Comment:Testing performed by : [address] [address] Monocyte abs 0.21 0.20 - 0.80 K/cumm LISA Comment:Testing performed by : [address] [address] Eosinophil abs 0.00 0.00 - 0.50 K/cumm [facility] Comment:Testing performed by : [address] [address] Basophil abs 0.02 0.00 - 0.10 K/cumm [facility] Comment:Testing performed by : [address] [address] Neutrophil pct 65.6 % [facility] Comment: Interpretive Data Percent cell count reference ranges are not reported, since discordance with absolute values may lead to misinterpretation of CBC data. Current Interpretive Data was last revised on 2017. Testing performed by: [address] [address] Imm gran pct 0.5 % [facility] Comment: Interpretive Data Percent cell count reference ranges are not reported, since discordance with absolute values may lead to misinterpretation of CBC data. Current Interpretive Data was last revised on 2017. Testing performed by: [address] [address] Lymphocyte pct 28.5 % [facility] Comment: Interpretive Data Percent cell count reference ranges are not reported, since discordance with absolute values may lead to misinterpretation of CBC data. Current Interpretive Data was last revised on 2017. Testing performed by: [address] [address] Monocyte pct 4.9 % [facility] Comment: Interpretive Data Percent cell count reference ranges are not reported, since discordance with absolute values may lead to misinterpretation of CBC data. Current Interpretive Data was last revised on 2017. Testing performed by: [address] [address] Eosinophil pct 0.0 % [facility] Comment: Interpretive Data Percent cell count reference ranges are not reported, since discordance with absolute values may lead to misinterpretation of CBC data. Current Interpretive Data was last revised on 2017. Testing performed by: [address] [address] Basophil pct 0.5 % [facility] Comment: Interpretive Data Percent cell count reference ranges are not reported, since discordance with absolute values may lead to misinterpretation of CBC data. Current Interpretive Data was last revised on 2017. Testing performed by: [address] [address] Blood 04/29/2025 2:28 AM CDT 04/29/2025 2:51 AM CDT us Carlie Leon ASSISTANT CASE MANAGER LAB BLOOD ORDERABLES Final Result LISA [address] [facility] Department [place] [address] * (ABNORMAL) CBC with auto differential (04/29/2025 2:28 AM CDT) WBC 4.25 3.80 - 9.90 K/cumm Comment:Testing performed by : [address] [address] Hgb 10.0(L) 11.9 - 15.5 g/dL LISA Comment:Testing performed by : [address] [address] Hct 29.5(L) 35.6 - 45.5 % LISA Comment:Testing performed by : [address] [address] Plt 217 150 - 400 K/cumm LISA Comment:Testing performed by : [address] [address] MPV 10.5 9.1 - 12.3 fL LISA Comment:Testing performed by : [address] [address] RBC 3.07(L) 3.90 - 5.20 M/cumm LISA Comment:Testing performed by : [address] [address] MCV 96.1 81.3 - 96.4 fL LISA Comment:Testing performed by : [address] [address] MCH 32.6 27.1 - 33.3 pg LISA ANDREW Comment:Testing performed by : [address] [address] MCHC 33.9 32.3 - 35.7 g/dL LISA ANDREW Comment:Testing performed by : [address] [address] RDW CV 13.5 11.1 - 14.9 % LISA ANDREW Comment:Testing performed by : [address] [address] RDW SD 48.0 35.7 - 48.1 fL LISA ANDREW Comment:Testing performed by : [address] [address] NRBC abs 0.00 0.00 - 0.01 K/cumm LISA ANDREW Comment:Testing performed by : [address] [address] Blood 04/29/2025 2:28 AM CDT 04/29/2025 2:51 AM CDT Carlie Leon ASSISTANT CASE MANAGER LAB BLOOD ORDERABLES Final Result LISA [address] [facility] Department [place] [address] * (ABNORMAL) Basic metabolic panel (04/29/2025 2:28 AM CDT) Pathologist [facility] Sodium 133(L) 135 - 145 mmol/L Comment:Testing performed by : [address] [address] Potassium, pl 4.9 3.3 - 4.9 mmol/L LISA ANDREW Comment: Hemolyzed; Potassium value may be falsely elevated by as much as 1.0 mmol/L. Suggest redraw and reanalysis. Testing performed by: [address] [address] Chloride 102 97 - 110 mmol/L LISA ANDREW Comment:Testing performed by : [address] [address] CO2 20(L) 22 - 32 mmol/L LISA ANDREW Comment:Testing performed by : [address] [address] Anion gap 11 2 - 15 mmol/L LISA ANDREW Comment:Testing performed by : [address] [address] BUN 44(H) 6 - 25 mg/dL LISA Comment:Testing performed by : [address] [address] Creatinine 1.03 0.60 - 1.10 mg/dL LISA Comment:Testing performed by : [address] [address] Glucose 144 70 - 199 mg/dL LISA Comment: Interpretive [...] Current interpretive data was last revised 2022. Testing performed by: [address] [address] Calcium 9.0 8.5 - 10.3 mg/dL LISA Comment:Testing performed by : [address] [address] Blood 04/29/2025 2:28 AM CDT 04/29/2025 2:51 AM CDT us Carlie Leon ASSISTANT CASE MANAGER LAB BLOOD ORDERABLES Final Result LISA [address] [facility] Department [place] [address] * POCT glucose (04/29/2025 12:35 AM CDT) [facility] Glucose, POC 136 70 - 199 mg/dL Comment:Testing performed by : [address] [address] Glucose comment 1 RN/MD Notified LISA ANDREW Comment:Testing performed by : [address] [address] Blood 04/29/2025 12:3 5 AM CDT 04/29/2025 12:35 AM CDT Cristino Bishop MD LAB POCT ORDERABLES - DEVICE Final Result Performing Organization Address [facility] Co de Phone Number LISA [address] [place] [address] * POCT glucose (04/28/2025 10:18 PM CDT) Glucose, POC 171 70 - 199 mg/dL Comment:Testing performed by : [address] [address] Blood 04/28/2025 10:1 8 PM CDT 04/28/2025 10:18 PM CDT Cristino Bishop MD LAB POCT ORDERABLES - DEVICE Final Result Performing Organization Address [facility] de Phone Number [address] [address] * POCT glucose (04/28/2025 9:13 PM CDT) Glucose, POC 183 70 - 199 mg/dL Comment:Testing performed by : [address] [address] Glucose comment 1 RN/MD Notified LISA Comment:Testing performed by : [address] [address] Blood 04/28/2025 9:13 PM CDT 04/28/2025 9:13 PM CDT Cristino Bishop MD LAB POCT ORDERABLES - DEVICE Final Result Performing Organization Address [facility] Co de Phone Number KATH[address] [place] [address] * (ABNORMAL) Hemoglobin and hematocrit (04/28/2025 6:49 PM CDT) [facility] Hgb 9.9(L) 11.9 - 15.5 g/dL Comment:Testing performed by : [address], [address] Hct 29.0(L) 35.6 - 45.5 % LISA Comment:Testing performed by : [address] [address] Blood 04/28/2025 6:49 PM CDT 04/28/2025 7:00 PM CDT us Carlie Leon NP LAB BLOOD ORDERABLES Final Result Performing Organization Address [facility]/ZIP Co de Phone Number [address] [place] [address] * POCT glucose (04/28/2025 4:11 PM CDT) [facility] Glucose, POC 126 70 - 199 mg/dL Comment:Testing performed by : [address], [address] Glucose comment 1 RN/MD Notified LISA Comment:Testing performed by : [address], [address] Blood 04/28/2025 4:11 PM CDT 04/28/2025 4:11 PM CDT us Cristino Bishop MD LAB POCT ORDERABLES - DEVICE Final Result Performing Organization Address City/[facility]/ZIP Co de Phone Number [address] [place] [address] * Differential, auto (04/28/2025 12:38 PM CDT) [facility] Neutrophil abs 2.52 1.50 - 6.50 K/cumm Comment:Testing performed by : [address], [address] Imm gran abs 0.01 0.00 - 0.10 K/cumm LISA ANDREW Comment:Testing performed by : [address] [address] Lymphocyte abs 1.53 0.80 - 3.30 K/cumm LISA Comment:Testing performed by : [address], [place]., [address] Monocyte abs 0.41 0.20 - 0.80 K/cumm LISA Comment:Testing performed by : [address], [place]., [address] Eosinophil abs 0.10 0.00 - 0.50 K/cumm LISA Comment:Testing performed by : [address], [place]., [address] Basophil abs 0.03 0.00 - 0.10 K/cumm LISA Comment:Testing performed by : [address] [address] Neutrophil pct 54.7 % LISA Comment: Interpretive Data Percent cell count reference ranges are not reported, since discordance with absolute values may lead to misinterpretation of CBC data. Current Interpretive Data was last revised on 2017. Testing performed by: [address] [address] Imm gran pct 0.2 % LISA Comment: Interpretive Data Percent cell count reference ranges are not reported, since discordance with absolute values may lead to misinterpretation of CBC data. Current Interpretive Data was last revised on 2017. Testing performed by: [address] [address] Lymphocyte pct 33.3 % LISA Comment: Interpretive Data Percent cell count reference ranges are not reported, since discordance with absolute values may lead to misinterpretation of CBC data. Current Interpretive Data was last revised on 2017. Testing performed by: [address] [address] Monocyte pct 8.9 % LISA Comment: Interpretive Data Percent cell count reference ranges are not reported, since discordance with absolute values may lead to misinterpretation of CBC data. Current Interpretive Data was last revised on 2017. Testing performed by: [address] [address] Eosinophil pct 2.2 % LISA ANDREW Comment: Interpretive Data Percent cell count reference ranges are not reported, since discordance with absolute values may lead to misinterpretation of CBC data. Current Interpretive Data was last revised on 2017. Testing performed by: [address] [address] Basophil pct 0.7 % LISA ANDREW Comment: Interpretive Data Percent cell count reference ranges are not reported, since discordance with absolute values may lead to misinterpretation of CBC data. Current Interpretive Data was last revised on 2017. Testing performed by: [address] [address] Blood 04/28/2025 12:3 8 PM CDT 04/28/2025 12:52 PM CDT Duke Swain MD LAB BLOOD ORDERABLES F inal Result [facility] Department [place] [address] * (ABNORMAL) CBC with auto differential (04/28/2025 12:38 PM CDT) WBC 4.60 3.80 - 9.90 K/cumm Comment:Testing performed by : [address] [address] Hgb 9.8(L) 11.9 - 15.5 g/dL LISA ANDREW Comment:Testing performed by : [address] [address] Hct 29.4(L) 35.6 - 45.5 % LISA ANDREW Comment:Testing performed by : [address] [address] Plt 202 150 - 400 K/cumm LISA ANDREW Comment:Testing performed by : [address] [address] MPV 9.9 9.1 - 12.3 fL LISA ANDREW Comment:Testing performed by : [address] [address] RBC 3.01(L) 3.90 - 5.20 M/cumm LISA Comment:Testing performed by : [address] [address] MCV 97.7(H) 81.3 - 96.4 fL LISA Comment:Testing performed by : [address] [address] MCH 32.6 27.1 - 33.3 pg LISA Comment:Testing performed by : [address] [address] MCHC 33.3 32.3 - 35.7 g/dL LISA Comment:Testing performed by : [address] [address] RDW CV 13.6 11.1 - 14.9 % LISA Comment:Testing performed by : [address] [address] RDW SD 48.8(H) 35.7 - 48.1 fL LISA Comment:Testing performed by : [address] [address] NRBC abs 0.00 0.00 - 0.01 K/cumm LISA Comment:Testing performed by : [address] [address] Blood 04/28/2025 12:3 8 PM CDT 04/28/2025 12:52 PM CDT Duke Swain MD LAB BLOOD ORDERABLES F inal Result LISA [address] [facility] Department of Laboratories [place], [place] [id number] * POCT glucose (04/28/2025 12:07 PM CDT) [facility] Signature Glucose, POC 91 70 - 199 mg/dL Comment:Testing performed by : [address] [address] Blood 04/28/2025 12:0 7 PM CDT 04/28/2025 12:07 PM CDT us Cristino Bishop MD LAB POCT ORDERABLES - DEVICE Final Result Performing Organization Address City/[facility] Co de Phone Number LISA [address] [address] * POCT glucose (04/28/2025 7:53 AM CDT) Glucose, POC 103 70 - 199 mg/dL Comment:Testing performed by : [facility], [address] [place] [address]., [address] Blood 04/28/2025 7:53 AM CDT 04/28/2025 7:53 AM CDT us Cristino Bishop MD LAB POCT ORDERABLES - DEVICE Final Result Performing Organization Address [facility] de Phone Number LISA [address] [address] * ECG 12 lead (04/28/2025 7:25 AM CDT) Ventricular Rate EKG/Min 74 BPM [facility] Atrial Rate 258 BPM [facility] QRS-Interval (MSEC) 98 ms [facility] QT-Interval (MSEC) 394 ms [facility] QTc 437 ms [facility] R [place] -50 degrees [facility] [place] 47 degrees [facility] Diagnosis Atrial flutter with variable A-V block with frequent ventricular-p aced complexes Left anterior fascicular block Abnormal ECG When compared with ECG of 27-APR-2025 17:18, Vent. rate has decreased BY 33 BPM Confirmed by MERLE SANTOS M.D. ([id number]) on 04/28/2025 8:57:59 AM [facility] 04/28/2025 7:25 AM CDT 04/28/2025 8:57 AM CDT us Carlie Leon ASSISTANT CASE MANAGER ECG ORDERABLES Final Resul t Performing Organization Address City/[facility] Co de Phone Number [facility] * POCT glucose (04/28/2025 4:05 AM CDT) Glucose, POC 76 70 - 199 mg/dL Comment:Testing performed by : [facility], [address] [place] [address]., [address] Glucose comment 1 RN/MD Notified LISA LORRIE Comment:Testing performed by : [facility], [address] [place] [address]., [address] Blood 04/28/2025 4:05 AM CDT 04/28/2025 4:05 AM CDT us Cristino Bishop MD LAB POCT ORDERABLES - DEVICE Final Result LISA ANDREW [address] [facility] Department [place] [address] * (ABNORMAL) eGFR (04/28/2025 3:50 AM CDT) [facility] eGFR 49(L) >=60 mL/min/1. 73 m2 Comment: Interpretive Data Reference Interval Normal >/= [...] Current interpretive data was last reviewed 2021. Testing performed by: [facility], [address] [place] [address]., [address] Blood 04/28/2025 3:50 AM CDT 04/28/2025 4:24 AM CDT us Carlie Leon ASSISTANT CASE MANAGER LAB BLOOD ORDERABLES Final Result LISA [address] [facility] Department [place] [address] * Differential, auto (04/28/2025 3:50 AM CDT) Neutrophil abs 3.01 1.50 - 6.50 K/cumm Comment:Testing performed by : [address] [address] Imm gran abs 0.01 0.00 - 0.10 K/cumm LISA Comment:Testing performed by : [address] [address] Lymphocyte abs 1.49 0.80 - 3.30 K/cumm LISA Comment:Testing performed by : [address] [address] Monocyte abs 0.46 0.20 - 0.80 K/cumm LISA Comment:Testing performed by : [address] [address] Eosinophil abs 0.13 0.00 - 0.50 K/cumm LISA Comment:Testing performed by : [address] [address] Basophil abs 0.04 0.00 - 0.10 K/cumm LISA Comment:Testing performed by : [address] [address] Neutrophil pct 58.6 % LISA Comment: Interpretive Data Percent cell count reference ranges are not reported, since discordance with absolute values may lead to misinterpretation of CBC data. Current Interpretive Data was last revised on 2017. Testing performed by: [address] [address] Imm gran pct 0.2 % LISA Comment: Interpretive Data Percent cell count reference ranges are not reported, since discordance with absolute values may lead to misinterpretation of CBC data. Current Interpretive Data was last revised on 2017. Testing performed by: [address] [address] Lymphocyte pct 29.0 % LISA Comment: Interpretive Data Percent cell count reference ranges are not reported, since discordance with absolute values may lead to misinterpretation of CBC data. Current Interpretive Data was last revised on 2017. Testing performed by: [address] [address] Monocyte pct 8.9 % LISA Comment: Interpretive Data Percent cell count reference ranges are not reported, since discordance with absolute values may lead to misinterpretation of CBC data. Current Interpretive Data was last revised on 2017. Testing performed by: [address] [address] Eosinophil pct 2.5 % LISA Comment: Interpretive Data Percent cell count reference ranges are not reported, since discordance with absolute values may lead to misinterpretation of CBC data. Current Interpretive Data was last revised on 2017. Testing performed by: [address] [address] Basophil pct 0.8 % LISA Comment: Interpretive Data Percent cell count reference ranges are not reported, since discordance with absolute values may lead to misinterpretation of CBC data. Current Interpretive Data was last revised on 2017. Testing performed by: [address] [address] Blood 04/28/2025 3:50 AM CDT 04/28/2025 4:24 AM CDT Carlie Leon ASSISTANT CASE MANAGER LAB BLOOD ORDERABLES Final Result LISA [address] [facility] Department of Laboratories [place], [place] [id number] * (ABNORMAL) CBC with auto differential (04/28/2025 3:50 AM CDT) WBC 5.14 3.80 - 9.90 K/cumm Comment:Testing performed by : [address] [address] Hgb 9.6(L) 11.9 - 15.5 g/dL LISA Comment:Testing performed by : [address] [address] Hct 29.3(L) 35.6 - 45.5 % LISA Comment:Testing performed by : [address] [address] Plt 218 150 - 400 K/cumm LISA Comment:Testing performed by : [address] [address] MPV 10.3 9.1 - 12.3 fL LISA Comment:Testing performed by : [address] [address] RBC 3.01(L) 3.90 - 5.20 M/cumm LISA Comment:Testing performed by : [address] [address] MCV 97.3(H) 81.3 - 96.4 fL LISA Comment:Testing performed by : [address] [address] MCH 31.9 27.1 - 33.3 pg LISA Comment:Testing performed by : [address] [address] MCHC 32.8 32.3 - 35.7 g/dL LISA Comment:Testing performed by : [address] [address] RDW CV 13.7 11.1 - 14.9 % LISA Comment:Testing performed by : [address] [address] RDW SD 49.0(H) 35.7 - 48.1 fL LISA Comment:Testing performed by : [address] [address] NRBC abs 0.00 0.00 - 0.01 K/cumm LISA Comment:Testing performed by : [address] [address] Blood 04/28/2025 3:50 AM CDT 04/28/2025 4:24 AM CDT us Carlie Leon ASSISTANT CASE MANAGER LAB BLOOD ORDERABLES Final Result [facility] [address] [facility] Department [place] [address] * (ABNORMAL) Basic metabolic panel (04/28/2025 3:50 AM CDT) Sodium 137 135 - 145 mmol/L Comment:Testing performed by : [address] [address] Potassium, pl 4.7 3.3 - 4.9 mmol/L LISA Comment:Testing performed by : [address] [address] Chloride 104 97 - 110 mmol/L LISA Comment:Testing performed by : [address] [address] CO2 22 22 - 32 mmol/L LISA Comment:Testing performed by : [address] [address] Anion gap 11 2 - 15 mmol/L LISA Comment:Testing performed by : [address] [address] BUN 54(H) 6 - 25 mg/dL LISA Comment:Testing performed by : [address] [address] Creatinine 1.16(H) 0.60 - 1.10 mg/dL LISA Comment:Testing performed by : [address] [address] Glucose 84 70 - 199 mg/dL LISA Comment: Interpretive [...] Current interpretive data was last revised 2022. Testing performed by: [address] [place] [address] Calcium 9.0 8.5 - 10.3 mg/dL LISA ANDREW Comment:Testing performed by : [address] [address] Blood 04/28/2025 3:50 AM CDT 04/28/2025 4:24 AM CDT Carlie Leon ASSISTANT CASE MANAGER LAB BLOOD ORDERABLES Final Result Performing Organization Address [facility] Co de Phone Number [address] [place] [address] * POCT glucose (04/28/2025 12:21 AM CDT) [facility] Glucose, POC 89 70 - 199 mg/dL Comment:Testing performed by : [address] [address] Glucose comment 1 RN/MD Notified LISA Comment:Testing performed by : [address] [address] Blood 04/28/2025 12:2 1 AM CDT 04/28/2025 12:21 AM CDT us Cristino Bishop MD LAB POCT ORDERABLES - DEVICE Final Result Performing Organization Address [facility] de Phone Number [address] [place] [address] * (ABNORMAL) eGFR (04/28/2025 12:01 AM CDT) [facility] eGFR 50(L) >=60 mL/min/1. 73 m2 Comment: Interpretive Data Reference Interval Normal >/= [...] Current interpretive data was last reviewed 2021. Testing performed by: [address] [address] Blood 04/28/2025 12:0 1 AM CDT 04/28/2025 12:14 AM CDT Carlie Leon LAB BLOOD ORDERABLES Final Result Performing Organization Address [facility] Co de Phone Number LISA [address] [place], [place] [id number] * (ABNORMAL) Hemoglobin and hematocrit (04/28/2025 12:01 AM CDT) Hgb 9.9(L) 11.9 - 15.5 g/dL Comment:Testing performed by : [address] [address] Hct 30.5(L) 35.6 - 45.5 % LISA Comment:Testing performed by : [address] [address] Blood 04/28/2025 12:0 1 AM CDT 04/28/2025 12:14 AM CDT Carlie Leon ASSISTANT CASE MANAGER LAB BLOOD ORDERABLES Final Result Performing Organization Address City/[facility] Co de Phone Number KATHI[address] [place] [address] * (ABNORMAL) Basic metabolic panel (04/28/2025 12:01 AM CDT) Sodium 135 135 - 145 mmol/L Comment:Testing performed by : [address] [address] Potassium, pl 5.0(H) 3.3 - 4.9 mmol/L [facility] Comment:Testing performed by : [address] [address] Chloride 103 97 - 110 mmol/L [facility] Comment:Testing performed by : [address] [address] CO2 22 22 - 32 mmol/L [facility] Comment:Testing performed by : [address] [address] Anion gap 10 2 - 15 mmol/L [facility] Comment:Testing performed by : [address] [address] BUN 55(H) 6 - 25 mg/dL [facility] Comment:Testing performed by : [address] [address] Creatinine 1.13(H) 0.60 - 1.10 mg/dL [facility] Comment:Testing performed by : [address] [address] Glucose 93 70 - 199 mg/dL [facility] Comment: Interpretive Data Fasting glucose >/= [...] Current interpretive data was last revised 2022. Testing performed by: [address] [address] Calcium 9.1 8.5 - 10.3 mg/dL [facility] Comment:Testing performed by : [address] [address] Blood 04/28/2025 12:0 1 AM CDT 04/28/2025 12:14 AM CDT Carlie Leon ASSISTANT CASE MANAGER LAB BLOOD ORDERABLES Final Result Performing Organization Address [facility] Co de Phone Number KATH[address] [address] * POCT glucose (04/27/2025 7:45 PM CDT) [facility] Glucose, POC 81 70 - 199 mg/dL Comment:Testing performed by : [address], [address] Glucose comment 1 RN/MD Notified LISA Comment:Testing performed by : [address] [address] Blood 04/27/2025 7:45 PM CDT 04/27/2025 7:45 PM CDT us Cristino Bishop MD LAB POCT ORDERABLES - DEVICE Final Result Performing Organization Address [facility] Co de Phone Number [address] [address] * (ABNORMAL) Hemoglobin and hematocrit (04/27/2025 6:37 PM CDT) [facility] Hgb 10.8(L) 11.9 - 15.5 g/dL Comment:Testing performed by : [address] [address] Hct 32.7(L) 35.6 - 45.5 % LISA ANDREW Comment:Testing performed by : [address] [address] Blood 04/27/2025 6:37 PM CDT 04/27/2025 6:43 PM CDT Carlie Leon ASSISTANT CASE MANAGER LAB BLOOD ORDERABLES Final Result Performing Organization Address [facility] Co de Phone Number KATHI[address] [address] * ECG 12 lead (04/27/2025 5:18 PM CDT) [facility] Ventricular Rate EKG/Min 107 BPM [facility] Atrial Rate 241 BPM [facility] QRS-Interval (MSEC) 102 ms [facility] QT-Interval (MSEC) 336 ms [facility] QTc 448 ms [facility] R [place] -50 degrees [facility] T [place] 95 degrees [facility] Diagnosis Atrial flutter with variable A-V block with occasional ventricular-pa norman complexes Left anterior fascicular block Abnormal QRS-T angle, consider primary T wave abnormality Abnormal ECG Confirmed by MERLE SANTOS M.D. ([id number]) on 04/28/2025 7:26:00 AM [facility] 04/27/2025 5:18 PM CDT 04/28/2025 7:26 AM CDT us Nasir Moncada DO ECG ORDERABLES Final Resul t [facility] * CT Chest PE (CTA) W Contrast (04/27/2025 4:26 PM CDT) Anatomical Region Laterality Modality Body N/A Computed Tomogra phy 04/27/2025 4:28 PM CDT Narrative 04/27/2025 4:40 PM CDT EXAM DESCRIPTION: CT CHEST PE (CTA) W CONTRAST REASON FOR STUDY: Pulmonary embolism (PE) suspected, high prob :10 PM Willow Najera is a 74 y.o. female presenting to the ED c/o hemoptysis. Patient states history of AFib, on Eliquis. Patient states chronic sinus drainage and cough. She also notes history of swallowing problems. States sometimes she coughs after eating, but does not think she is aspirating. She notes attempting to clear her throat and coughing up blood 2 days ago. States she went to [facility] and they thought it was a sinus infection and prescribed her amoxicillin liquid. Patient states she had another episode later that night and today coughed up a large amount of blood. Patient denies any fevers, chest pain, shortness of breath, leg swelling. Use to have a G-tube, now on a liquid diet. TECHNIQUE: CT angiogram of the chest performed with intravenous contrast using helical scanning technique with dynamic intravenous contrast injection. Reconstructed coronal and sagittal MPR images reviewed. All images stored on PACS. 3D MIP images rendered on scanning unit and reviewed at time of interpretation. Automated exposure control was used as a dose optimization technique for this examination. CONTRAST TYPE/DOSE: 100mL of IOVERSOL 350 MG IODINE/ML INTRAVENOUS SYRINGE injected via intravenous COMPARISON: CT chest 02/27/2025, 10/22/2024 FINDINGS: VASCULATURE: No identified pulmonary emboli. No thoracic aortic aneurysm or dissection LUNGS: Mild secretions within the trachea. Redemonstrated numerous bilateral pulmonary nodules and opacities, grossly stable from the prior exam. Some of these demonstrate a tree-in-bud configuration. These are most prominent within the bilateral upper lobes. Unchanged thick-walled cavitary opacity in the peripheral right lower lobe (series 4, image 97). PLEURA: No effusion. No pneumothorax. MEDIASTINUM/TRISTON: No masses or lymphadenopathy. Stable small hiatal hernia. Redemonstrated dilatation of the esophagus, as well as circumferential wall thickening of the mid to distal esophagus, for example on series 4, image 78. HEART: Mild global cardiomegaly, unchanged. No significant pericardial effusion. AXILLA: No adenopathy. CHEST WALL: No masses. No subcutaneous air. HARDWARE/LINES/TUBES: None. UPPER ABDOMEN: No significant abnormality. MUSCULOSKELETAL: No significant abnormality. OTHER: No significant abnormality. IMPRESSION: 1. No evidence of pulmonary embolism. 2. Grossly stable upper lobe predominant bilateral pulmonary nodules/opacities, favoring a chronic inflammatory/infectious process. 3. Mild secretions within the trachea. 4. Redemonstrated patulous esophagus. Unchanged circumferential wall thickening of the mid to distal esophagus. This may be secondary to esophagitis. Consider further evaluation with nonemergent endoscopy. THIS IS AN ELECTRONICALLY VERIFIED FINAL REPORT 04/27/2025 4:40 PM - Electronically signed by Miguel Malik M.D. KR: MYKE Report ID: [id number] Reading Location: [id number] Procedure Note Miguel Malik MD - 04/27/2025 EXAM DESCRIPTION: CT CHEST PE (CTA) W CONTRAST REASON FOR STUDY: Pulmonary embolism (PE) suspected, high prob :10 PM Willow Najera is a 74 y.o. female presenting to the ED c/ohemoptysis. Patient states history of AFib, on Eliquis. Patient states chronic sinus drainage and cough. She also notes history of swallowing problems.States sometimes she coughs after eating, but does not think she is aspirating. She notes attempting to clear her throat and coughing up blood 2 days ago. States she went to [facility] and they thought it was asinus infection and prescribed her amoxicillin liquid. Patient states she had another episode later that night and today coughed up a large amount of blood. Patient denies any fevers, chest pain, shortness of breath, leg swelling. Use to have a G-tube, now on a liquid diet. TECHNIQUE: CT angiogram of the chest performed with intravenous contrastusing helical scanning technique with dynamic intravenous contrast injection. Reconstructed coronal and sagittal MPR images reviewed. All images storedon PACS. 3D MIP images rendered on scanning unit and reviewed at time of interpretation. Automated exposure control was used as a doseoptimization technique for this examination. CONTRAST TYPE/DOSE: 100mL of IOVERSOL 350 MG IODINE/ML INTRAVENOUSSYRINGE injected via intravenous COMPARISON: CT chest 02/27/2025, 10/22/2024 FINDINGS: VASCULATURE: No identified pulmonary emboli. No thoracicaortic aneurysm or dissection LUNGS: Mild secretions within the trachea. Redemonstrated numerous bilateral pulmonary nodules and opacities, grossly stable from the priorexam. Some of these demonstrate a tree-in-bud configuration. These are most prominent within the bilateral upper lobes. Unchanged thick-walledcavitary opacity in the peripheral right lower lobe (series 4, image 97). PLEURA: No effusion. No pneumothorax. MEDIASTINUM/TRISTON: No masses or lymphadenopathy. Stable small hiatalhernia. Redemonstrated dilatation of the esophagus, as well as circumferentialwall thickening of the mid to distal esophagus, for example on series 4, image78. HEART: Mild global cardiomegaly, unchanged. No significant pericardial effusion. AXILLA: No adenopathy. CHEST WALL: No masses. No subcutaneous air. HARDWARE/LINES/TUBES: None. UPPER ABDOMEN: No significant abnormality. MUSCULOSKELETAL: No significant abnormality. OTHER: No significant abnormality. IMPRESSION: 1. No evidence of pulmonary embolism. 2. Grossly stable upper lobe predominant bilateral pulmonary nodules/opacities, favoring a chronic inflammatory/infectious process. 3. Mild secretions within the trachea. 4. Redemonstrated patulous esophagus. Unchanged circumferential wall thickening of the mid to distal esophagus. This may be secondary to esophagitis. Consider further evaluation with nonemergent endoscopy. THIS IS AN ELECTRONICALLY VERIFIED FINAL REPORT 04/27/2025 4:40 PM - Electronically signed by Miguel Malik M.D. KR: MYKE Report ID: [id number] Reading Location: [id number] Nasir Moncada DO IMG CT PROCEDURES Final Res ult * Sepsis Lactate w/ Reflex (04/27/2025 4:10 PM CDT) Sepsis Lactate 1.0 0.7 - 2.0 mmol/L Comment:Testing performed by : [facility], [address] [place] [address]., [id number] Blood 04/27/2025 4:10 PM CDT 04/27/2025 4:12 PM CDT Nasir Moncada DO LAB BLOOD ORDERABLES Final Result [facility] [address] [facility] [place] [address] * XR Chest 1 Vw Portable (04/27/2025 3:51 PM CDT) Anatomical Region Laterality Modality Body, Chest N/A Computed Radiogr aphy 04/27/2025 3:58 PM CDT Narrative 04/27/2025 4:00 PM CDT EXAM DESCRIPTION: XR CHEST 1 VIEW REASON FOR STUDY: cough Unable to remove Pt bra for xray. Pt coughing up blood today TECHNIQUE: 1 radiographic view(s) of the chest. COMPARISON: Chest radiograph 425 FINDINGS: LUNGS: Left basilar opacity, favoring combination of pleural effusion and atelectasis and/or pneumonia. No evidence of pneumothorax. HEART/MEDIASTINUM: Cardiac silhouette normal in size. Left chest dual lead cardiac pacer device. Mediastinal and hilar contours appear normal. LINES/TUBES: None. BONES: No acute osseous abnormality. IMPRESSION: Left basilar opacity, favoring a combination of pleural effusion and atelectasis and/or pneumonia. THIS IS AN ELECTRONICALLY VERIFIED FINAL REPORT 04/27/2025 4:00 PM - Electronically signed by Miguel Malik M.D. KR: MYKE Report ID: [id number] Reading Location: [id number] Procedure Note Miguel Malik MD - 04/27/2025 EXAM DESCRIPTION: XR CHEST 1 VIEW REASON FOR STUDY: cough Unable to remove Pt bra for xray. Pt coughing up blood today TECHNIQUE: 1 radiographic view(s) of the chest. COMPARISON: Chest radiograph 425 FINDINGS: LUNGS: Left basilar opacity, favoring combination of pleural effusion and atelectasis and/or pneumonia. No evidence of pneumothorax. HEART/MEDIASTINUM: Cardiac silhouette normal in size. Left chest duallead cardiac pacer device. Mediastinal and hilar contours appear normal. LINES/TUBES: None. BONES: No acute osseous abnormality. IMPRESSION: Left basilar opacity, favoring a combination of pleuraleffusion and atelectasis and/or pneumonia. THIS IS AN ELECTRONICALLY VERIFIED FINAL REPORT 04/27/2025 4:00 PM - Electronically signed by Miguel Malik M.D. KR: MYKE Report ID: [id number] Reading Location: [id number] Nasir Moncada DO IMG XR PROCEDURES Final Res ult * ABO / Rh Confirmation Testing (04/27/2025 3:37 PM CDT) ABO/Rh Confirmation A Positive MHB Comment:Testing performed by : [facility], [address] [place] [address], [place]., [address] Blood 04/27/2025 3:37 PM CDT 04/27/2025 3:41 PM CDT Nasir Moncada DO LAB BLOOD ORDERABLES Final Result Performing Organization Address [facility] Co de Phone Number LISA [address] [address] MHB * (ABNORMAL) eGFR (04/27/2025 3:04 PM CDT) eGFR 47(L) >=60 mL/min/1. 73 m2 Comment: Interpretive Data Reference Interval Normal >/= [...] Current interpretive data was last reviewed 2021. Testing performed by: [facility], [address] [place] [address]., [id number] Blood 04/27/2025 3:04 PM CDT 04/27/2025 3:08 PM CDT us Nasir Moncaad DO LAB BLOOD ORDERABLES Final Result Performing Organization Address City/[facility]/ZIP Co de Phone Number [facility] [place] [address] * Differential, auto (04/27/2025 3:04 PM CDT) Neutrophil abs 3.30 1.50 - 6.50 K/cumm Comment:Testing performed by : [facility], [address] [place] [address], [place]., [address] Imm gran abs 0.02 0.00 - 0.10 K/cumm [facility] Comment:Testing performed by : [address], [place]., [address] Lymphocyte abs 1.45 0.80 - 3.30 K/cumm [facility] Comment:Testing performed by : [address], [place]., [address] Monocyte abs 0.52 0.20 - 0.80 K/cumm [facility] Comment:Testing performed by : [address], [place]., [address] Eosinophil abs 0.15 0.00 - 0.50 K/cumm [facility] Comment:Testing performed by : [address], [place]., [address] Basophil abs 0.03 0.00 - 0.10 K/cumm [facility] Comment:Testing performed by : [address] [address] Neutrophil pct 60.4 % [facility] Comment: Interpretive Data Percent cell count reference ranges are not reported, since discordance with absolute values may lead to misinterpretation of CBC data. Current Interpretive Data was last revised on 2017. Testing performed by: [address] [address] Imm gran pct 0.4 % [facility] Comment: Interpretive Data Percent cell count reference ranges are not reported, since discordance with absolute values may lead to misinterpretation of CBC data. Current Interpretive Data was last revised on 2017. Testing performed by: [address] [address] Lymphocyte pct 26.5 % [facility] Comment: Interpretive Data Percent cell count reference ranges are not reported, since discordance with absolute values may lead to misinterpretation of CBC data. Current Interpretive Data was last revised on 2017. Testing performed by: [address] [address] Monocyte pct 9.5 % [facility] Comment: Interpretive Data Percent cell count reference ranges are not reported, since discordance with absolute values may lead to misinterpretation of CBC data. Current Interpretive Data was last revised on 2017. Testing performed by: [address] [address] Eosinophil pct 2.7 % [facility] Comment: Interpretive Data Percent cell count reference ranges are not reported, since discordance with absolute values may lead to misinterpretation of CBC data. Current Interpretive Data was last revised on 2017. Testing performed by: [address] [address] Basophil pct 0.5 % LISA Comment: Interpretive Data Percent cell count reference ranges are not reported, since discordance with absolute values may lead to misinterpretation of CBC data. Current Interpretive Data was last revised on 2017. Testing performed by: [address] [address] Blood 04/27/2025 3:04 PM CDT 04/27/2025 3:08 PM CDT us Nasir Moncada DO LAB BLOOD ORDERABLES Final Result LISA [address] [facility] Department [place] [address] * (ABNORMAL) Pro B-type natriuretic peptide (04/27/2025 3:04 PM CDT) NT-proBNP 1,639(H) <=450 pg/mL Comment: Interpretive Comments: A. Dyspnea in Acute Care Setting All Ages: < 300 pg/ml, acute heart failure unlikely. < 50 yrs: 300 - 450 pg/ml, further investigation warranted. > 450 pg/ml, acute heart failure likely. 50 - 74 yrs: 300 - 900 pg/ml, further investigation warranted. > 900 pg/ml, acute heart failure likely . > or = 75 yrs: 450 - 1800 pg/ml, further investigation warranted. > 1800 pg/ml, acute heart failure likely. B. Non-acute Setting < 75 yrs < 125 pg/ml, rules out heart failure. > or = 125 pg/ml, further investigation warranted. > or = 75 yrs < 450 pg/ml, rules out heart failure. > or = 450 pg/ml, further investigation warranted. - Knowledge of each individual patient's NT-proBNP range may be more useful than using similar cut-points for every patient. Please note that marked elevations in NT-proBNP levels may be observed in state other than Left Ventricular Congestive Failure, including: acute coronary syndromes, right heart strain/failure (including pulmonary embolism and cor pulmonale), critical illness, renal failure, as well as advanced age. - References: 1. Halle BURNHAM et.al. Eur Heart J. 2006:27:330-337. 2. Hawa COTTO, Lindsey MCCLENDON. J. AM Adali Cardiol: Cardiovasc Imag. 2009;2: 216- 225. Interpretive Data Last Revised Date: 2018. Testing performed by: [address] [address] Blood 04/27/2025 3:04 PM CDT 04/27/2025 3:08 PM CDT Nasir Moncada DO LAB BLOOD ORDERABLES Final Result [facility] [address] [facility] Department [place] [address] * (ABNORMAL) CBC with auto differential (04/27/2025 3:04 PM CDT) WBC 5.47 3.80 - 9.90 K/cumm Comment:Testing performed by : [address] [address] Hgb 11.0(L) 11.9 - 15.5 g/dL LISA ANDREW Comment:Testing performed by : [address] [address] Hct 33.5(L) 35.6 - 45.5 % LISA ANDREW Comment:Testing performed by : [address] [address] Plt 229 150 - 400 K/cumm LISA ANDREW Comment:Testing performed by : [address] [address] MPV 10.0 9.1 - 12.3 fL LISA ANDREW Comment:Testing performed by : [address] [address] RBC 3.39(L) 3.90 - 5.20 M/cumm LISA ANDREW Comment:Testing performed by : [address] [address] MCV 98.8(H) 81.3 - 96.4 fL LISA Comment:Testing performed by : [address] [address] MCH 32.4 27.1 - 33.3 pg LISA Comment:Testing performed by : [address] [address] MCHC 32.8 32.3 - 35.7 g/dL LISA Comment:Testing performed by : [address] [address] RDW CV 13.7 11.1 - 14.9 % LISA Comment:Testing performed by : [address], [address] RDW SD 50.1(H) 35.7 - 48.1 fL LISA Comment:Testing performed by : [address] [address] NRBC abs 0.00 0.00 - 0.01 K/cumm LISA Comment:Testing performed by : [address] [address] Blood 04/27/2025 3:04 PM CDT 04/27/2025 3:08 PM CDT Nasir Moncada DO LAB BLOOD ORDERABLES Final Result LISA [address] [facility] Department [place] [address] * ABO/Rh (04/27/2025 3:04 PM CDT) ABO/Rh A Positive Comment:Testing performed by : [address], [address] Blood 04/27/2025 3:04 PM CDT 04/27/2025 3:08 PM CDT Narrative [facility] 04/27/2025 3:47 PM CDT Has the patient had Daratumumab or Isatuximab in the past 6 months?->Unknown Nasir Moncada DO LAB BLOOD BANK TEST ORDERAB LES Final Result Performing Organization Address [facility] Co de Phone Number [address] [address] * Antibody screen (04/27/2025 3:04 PM CDT) Pathologist [facility] [place]adyen, indirect, Gel Interpretation Negative ABSC Comment:Testing performed by : [address] [address] Blood 04/27/2025 3:04 PM CDT 04/27/2025 3:08 PM CDT Narrative [facility] 04/27/2025 3:47 PM CDT Has the patient had Daratumumab or Isatuximab in the past 6 months?->Unknown Nasir Moncada DO LAB BLOOD BANK TEST ORDERAB LES Final Result Performing Organization Address [facility] de Phone Number [address] [address] * (ABNORMAL) Phosphorus (04/27/2025 3:04 PM CDT) Pathologist [facility] Phosphorus, pl 4.9(H) 2.3 - 4.5 mg/dL Comment:Testing performed by : [address] [address] Blood 04/27/2025 3:04 PM CDT 04/27/2025 3:08 PM CDT Carlie Leon LAB BLOOD ORDERABLES Final Result Performing Organization Address City/[facility] Co de Phone Number [address] [address] * Magnesium (04/27/2025 3:04 PM CDT) Pathologist [facility] Magnesium 2.2 1.4 - 2.5 mg/dL Comment:Testing performed by : [address] [address] Blood 04/27/2025 3:04 PM CDT 04/27/2025 3:08 PM CDT Carlie Leon LAB BLOOD ORDERABLES Final Result Performing Organization Address [facility] Co de Phone Number [place] [address] [place] [address] * Hemoglobin A1c (04/27/2025 3:04 PM CDT) [facility] Hgb A1C 5.4 4.0 - 5.6 % Comment:Testing performed by : [address] [address] Estimated Average Glucose 108 mg/dL LISA Comment: The ADA recommends reporting an estimated Average Glucose (eAG) with all Hemoglobin A1c results using the equation derived from a study of 507 normal and diabetic adults. Minority populations were underrepresented and children were not included. (Diabetes Care 31:9536-5302, 2008). The eAG is not equivalent to a fasting glucose. Testing performed by: [address] [address] Blood 04/27/2025 3:04 PM CDT 04/27/2025 6:07 PM CDT Carlie Leon LAB BLOOD ORDERABLES Final Result Performing Organization Address City/[facility] Co de Phone Number [place] [address] [place] [address] * (ABNORMAL) Comprehensive metabolic panel (04/27/2025 3:04 PM CDT) [facility] Sodium 134(L) 135 - 145 mmol/L Comment:Testing performed by : [address] [address] Potassium, pl 5.8(H) 3.3 - 4.9 mmol/L [facility] Comment:Testing performed by : [address] [address] Chloride 101 97 - 110 mmol/L [facility] Comment:Testing performed by : [address] [address] CO2 20(L) 22 - 32 mmol/L [facility] Comment:Testing performed by : [address] [address] Anion gap 13 2 - 15 mmol/L [facility] Comment:Testing performed by : [address] [address] BUN 60(H) 6 - 25 mg/dL [facility] Comment:Testing performed by : [address] [address] Creatinine 1.20(H) 0.60 - 1.10 mg/dL [facility] Comment:Testing performed by : [address] [address] Glucose 93 70 - 199 mg/dL [facility] Comment: Interpretive Data Fasting glucose >/= [...] Current interpretive data was last revised 2022. Testing performed by: [address] [address] Calcium 9.3 8.5 - 10.3 mg/dL [facility] Comment:Testing performed by : [address] [address] Bilirubin, total 0.5 0.1 - 1.2 mg/dL [facility] Comment:Testing performed by : [address] [address] Protein, pl 8.1 6.5 - 8.5 g/dL LISA Comment:Testing performed by : [address] [address] Albumin 4.1 3.5 - 5.0 g/dL LISA Comment:Testing performed by : [address] [address] Alk phos 233(H) 40 - 130 Units/L LISA Comment:Testing performed by : [address] [address] ALT 36 7 - 45 Units/L LSIA Comment:Testing performed by : [address] [address] AST 40 10 - 45 Units/L LISA Comment:Testing performed by : [address] [address] Blood 04/27/2025 3:04 PM CDT 04/27/2025 3:08 PM CDT Nasir Moncada DO LAB BLOOD ORDERABLES Final Result [facility] [address] [facility] Department of Laboratories [place], [place] [id number] * CT chest with contrast (02/27/2025 2:29 PM CDT) Anatomical Region Laterality Modality Body N/A Computed Tomogra phy 03/19/2025 1:47 PM CDT Narrative 03/19/2025 2:05 PM CDT EXAM DESCRIPTION: CT CHEST W CONTRAST REASON FOR STUDY: Respiratory illness, nondiagnostic xray Respiratory illness, nondiagnostic xray Dx: Mycobacterium avium infection (HCC) A31.0 (ICD-10-CM) TECHNIQUE: CT scan of the chest performed with intravenous contrast using helical scanning technique with dynamic intravenous contrast injection. Reconstructed coronal and sagittal MPR images reviewed. All images stored on PACS. Automated exposure control was used as a dose optimization technique for this examination. CONTRAST TYPE/DOSE: 100mL of IOVERSOL 350 MG IODINE/ML INTRAVENOUS SYRINGE injected via intravenous COMPARISON: CT chest 10/22/2024 FINDINGS: LUNGS: Numerous bilateral pulmonary nodules are redemonstrated, with a mid to upper lung predominance . Many of these demonstrate a cavitary and tree-in-bud morphology. For example, there is new central cavitation within a peripheral right lower lobe 1.7 cm opacity (series 3 image 66). The majority of these nodules/opacities are stable in size. However, several new nodules are noted within the lateral left apex. For example, new 1.7 cm nodule on image 22, with new surrounding smaller nodules.. There is diffuse interstitial prominence. PLEURA: No effusion. No pneumothorax. MEDIASTINUM/TRISTON: No identified masses or abnormal nodes. Redemonstrated dilatation of the proximal to mid esophagus. There is circumferential wall thickening with luminal narrowing involving the more distal esophagus (for example series 2, image 59). HEART: Redemonstrated cardiomegaly, with prominent left atrial enlargement. No significant pericardial effusion. Left chest cardiac pacer device. VASCULATURE: No thoracic aortic aneurysm or dissection. No evidence of pulmonary arterial embolism. AXILLA: No adenopathy. CHEST WALL: No masses. No subcutaneous air. HARDWARE/LINES/TUBES: None. UPPER ABDOMEN: No significant abnormality. MUSCULOSKELETAL: No significant abnormality. OTHER: No other significant abnormality. IMPRESSION: Redemonstration of numerous bilateral mid to upper lung predominant nodules/opacities, many of which demonstrate a tree-in-bud morphology. Several nodules also demonstrate new regions of central cavitation. Several new left apical nodules. Findings are in keeping with history of MAC infection. THIS IS AN ELECTRONICALLY VERIFIED FINAL REPORT 03/19/2025 2:05 PM - Electronically signed by Miguel Malik M.D. KR T: Report ID: [id number] Reading Location: [place] [address] Procedure Note Miguel Malik MD - 03/19/2025 EXAM DESCRIPTION: CT CHEST W CONTRAST REASON FOR STUDY: Respiratory illness, nondiagnostic xray Respiratory illness, nondiagnostic xray Dx: Mycobacterium aviuminfection (HCC) A31.0 (ICD-10-CM) TECHNIQUE: CT scan of the chest performed with intravenous contrast using helical scanning technique with dynamic intravenous contrast injection. Reconstructed coronal and sagittal MPR images reviewed. All images storedon PACS. Automated exposure control was used as a dose optimizationtechnique for this examination. CONTRAST TYPE/DOSE: 100mL of IOVERSOL 350 MG IODINE/ML INTRAVENOUS SYRINGE injected via intravenous COMPARISON: CT chest 10/22/2024 FINDINGS: LUNGS: Numerous bilateral pulmonary nodules are redemonstrated, with a mid to upper lung predominance . Many of these demonstrate acavitary and tree-in-bud morphology. For example, there is new central cavitation within a peripheral right lower lobe 1.7 cm opacity (series 3 image 66).The majority of these nodules/opacities are stable in size. However, severalnew nodules are noted within the lateral left apex. For example, new 1.7 cm nodule on image 22, with new surrounding smaller nodules.. There isdiffuse interstitial prominence. PLEURA: No effusion. No pneumothorax. MEDIASTINUM/TRISTON: No identified masses or abnormal nodes.Redemonstrated dilatation of the proximal to mid esophagus. There is circumferentialwall thickening with luminal narrowing involving the more distal esophagus (for example series 2, image 59). HEART: Redemonstrated cardiomegaly, with prominent left atrialenlargement. No significant pericardial effusion. Left chest cardiac pacer device. VASCULATURE: No thoracic aortic aneurysm or dissection. No evidence of pulmonary arterial embolism. AXILLA: No adenopathy. CHEST WALL: No masses. No subcutaneous air. HARDWARE/LINES/TUBES: None. UPPER ABDOMEN: No significant abnormality. MUSCULOSKELETAL: No significant abnormality. OTHER: No other significant abnormality. IMPRESSION: Redemonstration of numerous bilateral mid to upper lung predominant nodules/opacities, many of which demonstrate a tree-in-bud morphology. Several nodules also demonstrate new regions of central cavitation. Several new left apical nodules. Findings are in keepingwith history of MAC infection. THIS IS AN ELECTRONICALLY VERIFIED FINAL REPORT 03/19/2025 2:05 PM - Electronically signed by Miguel Malik M.D. KR T: Report ID: [id number] Reading Location: [place] [address] Onesimo Welch MD IM CT PROCEDURES Final Resu lt * (ABNORMAL) POCT lipid panel (11/27/2024 9:38 [...] CARE TEST ORDERABLES F inal Result * Dexa Axial Skeleton Bone Density 1 or 2 Site (06/08/2015 2:48 PM DIE ATTACHING MACHINE TENDER) Anatomical Region Laterality Modality Body N/A Radiographic Keyla ging 06/08/2015 2:48 PM DIE ATTACHING MACHINE TENDER Impressions 06/08/2015 4:50 PM DIE ATTACHING MACHINE TENDER Bone mineral density in the lumbar spine, [...] PM BM[facility] [EOD] Narrative 06/08/2015 4:50 PM DIE ATTACHING MACHINE TENDER HISTORY: 65 year old postmenopausal female with given history of primary hyperparathyroidism. Current Height: 62 inches Maximum Height: 63 inches Weight: 253 pounds RISK FACTORS: Chronic antacid use. Hyperparathyroidism. COMPARISON(S): None DEHYDRATOR OPERATOR/MODEL: awe.sm (S/N [id number]) FINDINGS: AP lumbar spine L1-L4 Total BMD is 0.918 g/jb6S-qosln is -1.2 Left Hip Total BMD is 0.771 g/co9V-gfckr is -1.4 Neck BMD is 0.642 g/aw7P-awfng is -1.9 Left forearm BMD in the radius 33% is 0.559 g/uh2I-jkclk is -2.2 Procedure Note Provider, MD Colleen - 12/14/2020 HISTORY: 65 year old postmenopausal female with given history of primary hyperparathyroidism. Current Height: 62 inches Maximum Height: 63 inches Weight: 253 pounds RISK FACTORS: Chronic antacid use. Hyperparathyroidism. COMPARISON(S): None DEHYDRATOR OPERATOR/MODEL: awe.sm (S/N [id number]) FINDINGS: AP lumbar spine L1-L4 Total BMD is 0.918 g/ev9K-uruep is -1.2 Left Hip Total BMD is 0.771 g/zr3A-zxwbu is -1.4 Neck BMD is 0.642 g/ne2W-rcmeu is -1.9 Left forearm BMD in the radius 33% is 0.559 g/gn3K-zhfpe is -2.2 IMPRESSION: Bone mineral density in [...] 04:46 PM BM [EOD] Cirilo Pedersen MD IM DXA PROCEDURES Final Resul t from Last 3 Months or Most Recently Relevant to Health Maintenance Insurance [employer] MEDICARE [facility] [id number] [facility] MEDICARE ADVANTAGE [facility] MEDICARE [employer] MEDICARE Advance Directives For more information, please contact: [phone] Documents on File Type Date Recorded Patient Prescription Benefit Specialist Expl anation Power of Laminating Machine Tender ADVANCE DIRECTIVE 10/18/2024 9:27 AM POLST - Phys Order for PT Preferences ADVANCE DIRECTIVE 09/04/2019 1:16 PM Power of Laminating Machine Tender-Medical ADVANCE DIRECTIVE 07/16/2019 12:00 AM POW [facility] OF [facility] * Full Code (Latest Code Status on File) Date Activated Date Inactivated Comments 04/27/2025 5:49 PM 04/30/2025 5:49 PM * Full Code Date Activated Date Inactivated Comments 10/30/2024 5:50 PM 11/09/2024 8:59 PM * Full Code Date Activated Date Inactivated Comments 10/22/2024 4:59 PM 10/28/2024 6:27 PM * Full Code Date Activated Date Inactivated Comments 10/14/2024 8:43 PM 10/17/2024 7:52 PM * Full Code Date Activated Date Inactivated Comments 12/14/2021 8:52 PM 12/15/2021 9:07 PM Care Teams Layout Artist Relationship Specialty Start Date End Date Ellen Rowley MD [facility] NATALIE GILMORE [id number] PCP - General Family Medicine 02/09/22 Sam Young MD [address] [facility] [address] [address] [place] [id number] Consulting Physician Cardiology 04/30/25 Javier Pham MD [address] [facility] [address] [place] [address] [place] [id number] Consulting Physician Pulmonary Disease 04/30/25
--- OUTSIDE RECORDS SUMMARY | 2025-05-16 09:38 | XMS_ITS | Clinical Summary ---
Author Organization [facility] Address [address] [place] [address] Care Team Providers Care Cinder Block Maker Name Role Phone Ellen Rowley MD Primary Care Provider Source Comments [facility],non-[facility] Affiliates and Associated Physician Practices is amultiple site organization consisting of ambulatory clinics and hospital sitesin [place], [place], [place] and [place]. This disclosure is being madepursuant to the Care Everywhere program and may not contain all information available regarding this patient. Last updated 18.[facility] Allergies Active Allergy Reactions Criticality Noted Date [...] daily 60 packet 2 09/27/2024 12:10 PM HEAVY REPAIRER 5 Active levothyroxine (Synthroid) 112 MCG tablet 1 (one) tablet by Enteral Tube route once daily 30 tablet 09/27/2024 12:10 PM HEAVY REPAIRER 5 Active Additional Information Patient not taking.Reported on [...] THREE TIMES A DAY NEEDED FOR COUGH 4 Active carvedilol (Coreg) 6.25 MG tablet Take 1 (one) tablet by mouth 2 times daily with morning and evening meal Active nystatin (Mycostatin) 768569 UNIT/GM powder Apply to affected area 3 times daily 5 Active furosemide (Lasix) 40 MG tablet Take 1 (one) tablet by mouth once daily 5 Active Active Problems Problem Noted Date Diagnosed Date A-fib 12/06/2024 PNA (pneumonia) 12/06/2024 Moderate protein-calorie malnutrition 09/23/2024 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 Not hard at all 01/16/2025 [facility] - Occupational Stress [...] were you homeless or living in a [place] health care facility (including now)? No 01/16/2025 Comments Unknown Sex and Gender Information Value Date Recorded Sex Assigned at Not on file Legal Sex Female 10:45 PM HEAVY REPAIRER Gender Identity Not on file Sexual Orientation Not on file Last Filed Vital Signs Vital Sign Reading Time Taken Comments Blood Pressure 115/75 02/07/2025 8:55 AM CDT Pulse 76 02/07/2025 8:55 AM CDT Temperature 36.6 C (97.9 F) 01/17/2025 8:23 AM CDT Respiratory Rate 16 01/17/2025 8:23 AM CDT Oxygen Saturation 89% 02/07/2025 8:55 AM CDT Inhaled Oxygen Concentration 21% 06/2025 11:37 AM HEAVY REPAIRER Weight 58.9 kg (129 lb 12.8 oz) [...] yrs (1 - 1-dose 75+ series) 2023 DEPRESSION SCREENING 07/31/2024 MEDICARE AWV CALENDAR YEAR 2024 DIABETES RETINOPATHY SCREENING 09/09/2024 DIABETES-FOOT EXAM WITH MONOFILAMENT 09/09/2024 COVID-19 VACCINE ( - season) 2025 10/10/2020, 09/18/2020 INFLUENZA VACCINE (#1) 2025 , 04/18/2023, 04/10/2023, [...] Procedure Name Priority Date/Time Associated Diagnosis Comments BASIC METABOLIC PANEL (CALCIUM TOTAL) Timed 01/17/2025 3:19 AM CDT HEMOGLOBIN A1C Routine 09/10/2024 2:04 AM HEAVY REPAIRER from Last 3 Months or Most Recently Relevant to Health Maintenance Results * (ABNORMAL) BASIC METABOLIC PANEL (CALCIUM TOTAL) (01/17/2025 3:19 AM CDT) Glucose 103(H) 70 - 99 mg/dL 01/17/2025 4:22 AM CDT [facility] Sodium 139 136 - 145 mmol/L 01/17/2025 4:22 AM CDT [facility] Potassium 4.6 3.5 - 5.1 mmol/L 01/17/2025 4:22 AM CDT [facility] Chloride 103 98 - 107 mmol/L 01/17/2025 4:22 AM CDT [facility] CO2 32(H) 22 - 29 mmol/L 01/17/2025 4:22 AM CDT [facility] Calcium 8.6 8.4 - 10.4 mg/dL 01/17/2025 4:22 AM CDT [facility] Anion Gap 4(L) 6 - 16 mmol/L 01/17/2025 4:22 AM CDT [facility] BUN 48(H) 7 - 26 mg/dL 01/17/2025 4:22 AM CDT [facility] Creatinine 1.01 0.57 - 1.11 mg/dL 01/17/2025 4:22 AM CDT [facility] eGFR by CKD-EPI 58(L) >=90 mL/min/1.7 3 m2 01/17/2025 4:22 AM CDT [facility] Blood BLOOD SPECIMEN / Unknown Lab Venipuncture / Unknown 01/17/2025 3:19 AM CDT 01/17/2025 3:53 AM CDT Roland Miller MD LAB - CHEMISTRY ORDERABLES Fin al Result [facility] [address] [id number] * HEMOGLOBIN A1C (09/10/2024 2:04 AM [facility]) Hemoglobin A1c 4.9 <=5.6 % 09/10/2024 8:53 AM [facility] Estimated Average Glucose 94 mg/dL 09/10/2024 8:53 AM [facility] Comment: HbA1c Interpretation: Normal : < 5.7% Pre-diabetes: 5.7-6.4% Diabetes: Equal to or greater than 6.5% Test results diagnostic of diabetes should be repeated for confirmation. Treatment target values recommended by ADA and other clinical organizations should be used to evaluate metabolic control in patients. Reference: [place] Diabetes Association, Standards of Care in Diabetes -2020 In patients 70 years and older consider HbA1c target range of 7.0-7.5% (Reference: Harsh Stanley et al. JAMDA. 2012) The Sebia assay for the measurement of HbA1c is a National Glycohemoglobin Standardization Program (NGSP) certified method. Blood BLOOD SPECIMEN / Unknown Venipuncture / Unknown 09/10/2024 2:04 AM HEAVY REPAIRER 09/10/2024 2:14 AM HEAVY REPAIRER us Jerel Ceja MD LAB - CHEMISTRY ORDERABLES F inal Result [facility] [address] [place] [address], [facility] [phone] from Last 3 Months or Most Recently Relevant to Health Maintenance Insurance [employer] MEDICARE ADV Advance Directives * Full Code (Latest Code Status on File) Date Activated Date Inactivated Comments 01/15/2025 2:50 PM 01/17/2025 4:34 PM * Full Code Date Activated Date Inactivated Comments 09/09/2024 3:24 PM 09/27/2024 3:43 PM Care Teams Cinder Block Maker Relationship Specialty Start Date End Date Ellen Rowley MD [facility] [place], [place] [id number] PCP - General Family Medicine 07/31/24
[2025-05-16 10:11] LABS: Free T4 Free Thyroxine 1.57 ng/dL (0.78-2.19)
[2025-05-16 10:31] LABS: Thyroid Stimulating Hormone 6.560 uIU/mL (0.465-4.680)
== END 2025-05-16 09:14 | disposition home or self-care (01) ==
LOC: ANHLAB 09:15
PROVIDERS: Visit Provider Internal Medicine
DX: E89.0 Postprocedural hypothyroidism (principal)
CPT/HCPCS: 36415; 84439; 84443

== ENCOUNTER 2025-07-14 09:50 | Outpatient (CLI) | payer MEDICARE, SELFPAY ==
[2025-07-14 11:16] LABS: Free T4 Free Thyroxine 1.78 ng/dL (0.78-2.19)
[2025-07-14 11:25] LABS: Thyroid Stimulating Hormone 0.126 uIU/mL (0.465-4.680)
== END 2025-07-14 09:51 | disposition home or self-care (01) ==
PROVIDERS: Visit Provider Internal Medicine
DX: E21.0 Primary hyperparathyroidism (principal); E11.8 Type 2 diabetes mellitus with unspecified complications; E89.0 Postprocedural hypothyroidism; C73 Malignant neoplasm of thyroid gland; M81.0 Age-related osteoporosis without current pathological fracture; Z78.9 Other specified health status
CPT/HCPCS: 36415; 84439; 84443; 86800

== ENCOUNTER 2025-07-30 09:18 | Outpatient (CLI) | payer MEDICARE, SELFPAY ==
--- OUTSIDE RECORDS SUMMARY | 2024-08-26 02:10 | XMS_ITS ---
Author Organization [facility] Address [address] [place], [place] [address] Care Team Providers Care Senior Java Web Developer Name Role Phone DIXIE RAMIREZ Unavailable [phone] Ellen Rowley Unavailable Unavailable Allergies Allergen (clinical drug ingredient) Drug/Non Drug Allergy documented on EMR Reaction Allergy Type Onset Date Status cefadroxil Duricef (uncoded) Unknown Allergy 12/30/2014 active REASON FOR VISIT *General care Medications Medication SIG (Take, Route, Frequency, Duration) Notes Start Date End Date Status latanoprost 0.05 MG/ML Ophthalmic Solution latanoprost 0.05 MG/ML Ophthalmic SolutionOriginal Medicationlatanoprost 0.05 MG/ML Ophthalmic Solution *Reorder from [employer] for eRx and Interaction Alerts* 12/30/2014 Active metformin hydrochloride 500 MG Oral Tablet ORAL metformin hydrochloride 500 MG Oral TabletOriginal Medicationmetformin hydrochloride 500 MG Oral Tablet *Reorder from [employer] for eRx and Interaction Alerts* 12/30/2014 Active timolol 2.5 MG/ML Ophthalmic Solution timolol 2.5 MG/ML Ophthalmic SolutionOriginal Medicationtimolol 2.5 MG/ML Ophthalmic Solution *Reorder from [employer] for eRx and Interaction Alerts* 12/30/2014 Active Lisinopril 40 MG Oral Tablet ORAL lisinopril 40 MG Oral TabletOriginal Medicationlisinopril 40 MG Oral Tablet *Reorder from [employer] for eRx and Interaction Alerts* 12/30/2014 Active Carvedilol 6.25 MG Oral Tablet ORAL carvedilol 6.25 MG Oral TabletOriginal Medicationcarvedilol 6.25 MG Oral Tablet *Reorder from [employer] for eRx and Interaction Alerts* 12/30/2014 Active atorvastatin 10 MG Oral Tablet ORAL atorvastatin 10 MG Oral TabletOriginal Medicationatorvastatin 10 MG Oral Tablet *Reorder from [employer] for eRx and Interaction Alerts* 12/30/2014 Active esomeprazole 40 MG Delayed Release Oral Capsule [Nexium] ORAL esomeprazole 40 MG Delayed Release Oral Capsule [Nexium]Original Medicationesomeprazole 40 MG Delayed Release Oral Capsule [Nexium] *Reorder from [employer] for eRx and Interaction Alerts* 12/30/2014 Active 24 HR glipizide 10 MG Extended Release Oral Tablet ORAL 24 HR glipizide 10 MG Extended Release Oral TabletOriginal [id number] HR glipizide 10 MG Extended Release Oral Tablet *[facility]* 12/30/2014 Active Encounters Encounter Location Date Provider Diagnosis [facility] [address] [facility] [address] [facility] [address] [place], [place] [id number] 08/26/2024 DIXIE RAMIREZ Fungal infection of nail B35.1 ; Pain in right toe(s) M79.674 ; Pain in left toe(s) M79.675 and Unspecified atherosclerosis of [place] arteries of extremities, bilateral legs I70.203 Assessments Encounter Date Diagnosis (ICD Code) Assessment Notes Treatment Notes Treatment Clinical Notes Section Notes 08/26/2024 Fungal infection of nail (ICD-10 - B35.1) 08/26/2024 Pain in right toe(s) (ICD-10 - M79.674) 08/26/2024 Pain in left toe(s) (ICD-10 - M79.675) 08/26/2024 Unspecified atherosclerosis of [place] arteries of extremities, bilateral legs (ICD-10 - I70.203) 08/26/2024 Other Nails 1-5 Bilateral were debrided extensively with nail nippers and emery board, reducing length and girth to pink healthy tissue with any subungual debris and necrotic tissue removed Plan Of Treatment Treatment Notes Assessment Notes Other Nails 1-5 Bilateral were debrided extensively with nail nippers and emery board, reducing length and girth to pink healthy tissue with any subungual debris and necrotic tissue removed Next Appt Details Follow Up: 9 weeks, Reason: Provider Name:DIXIE GIBBS, 09/22/2025 10:20:00 AM, [address], [facility] [address], [place], [place], [id number], History and Physical Notes * HPI (History of Present Illness) Category Sub-Category Detail Notes Category Not es HPI General care Patient presents to the office for diabetic foot care. Patient states that their nails are thickened, elongated and painful. Patient states that it is aggravated by shoe gear. Onset is gradual., Patient denies taking prescription blood thinners but does take a daily aspirin., Date last seen by Dr. Rowley was 01/2024., Initials [facility] Examination Category Sub-Category Detail Notes Category Not es Physical Examination Gen: The patient is awake, alert, well developed, well groomed and well nourished. They are in no apparent distress. Vasc: Posterior tibialis p ulse 0/4 bilaterally. Dorsalis pedis pulse 0/4 bilaterally. No edema noted. Capillary fill time > 3 seconds to all digits. Neuro: Grossly intact to li ght touch bilateral Musc: Foot structure is no rmal bilateral. Muscle strength is 5/5 to all joints bilaterally. There is no pain on palpation. Derm: There is absent hair growth on bilateral feet. There are pigmentary changes of bilateral foot. The skin color is red. The skin texture is thin and shiny. Distal cooling noted in bilateral feet. Nails are thick, discolored, and dystrophic with subungual debris. They are painful to palpation. Progress Notes * JAYSON LOPEZ EDOB:1950 (75 yo F)Acc No.[id number]:08/26/2024 Patient: JAYSON LINO Provider: Zara Ramirez DPM :1950 A ge:74 Y S ex:Female Date:08/26/2024 Address:[address] [place], [place] [id number] Subjective: * Chief Complaints: * * General care * HPI: H PI: General care P atient presents to the office for diabetic foot care. Patient states that their nails are thickened, elongated and painful. Patient states that it is aggravated by shoe gear. Onset is gradual., Patient denies taking prescription blood thinners but does take a daily aspirin., Date last seen by Dr. Rowley was 01/2024., Initials [facility]. * ROS: G eneral / Constitutional: Patient denies c hange in appetite, fatigue, chills, fever.? C ardiovascular: Chest pain d enies. N eurologic: Loss of use of extremity d enies. * Medications: T akingLisinopril 40 MG Oral Tablet ORAL , Notes to Pharmacist: lisinopril 40 MG Oral TabletOriginal Medicationlisinopril 40 MG Oral Tablet *Reorder from [facility] for eRx and Interaction Alerts*Carvedilol 6.25 MG Oral Tablet ORAL , Notes to Pharmacist: carvedilol 6.25 MG Oral TabletOriginal Medicationcarvedilol 6.25 MG Oral Tablet *Reorder from [facility] for eRx and Interaction Alerts*24 HR glipizide 10 MG Extended Release Oral Tablet ORAL , Notes to Pharmacist: 24 HR glipizide 10 MG Extended Release Oral TabletOriginal [id number] HR glipizide 10 MG Extended Release Oral Tablet *Reorder from [facility] for eRx and Interaction Alerts*atorvastatin 10 MG Oral Tablet ORAL , Notes to Pharmacist: atorvastatin 10 MG Oral TabletOriginal Medicationatorvastatin 10 MG Oral Tablet *Reorder from [facility] for eRx and Interaction Alerts*esomeprazole 40 MG Delayed Release Oral Capsule [Nexium] ORAL , Notes to Pharmacist: esomeprazole 40 MG Delayed Release Oral Capsule [Nexium]Original Medicationesomeprazole 40 MG Delayed Release Oral Capsule [Nexium] *Reorder from [facility] for eRx and Interaction Alerts*latanoprost 0.05 MG/ML Ophthalmic Solution , Notes to Pharmacist: latanoprost 0.05 MG/ML Ophthalmic SolutionOriginal Medicationlatanoprost 0.05 MG/ML Ophthalmic Solution *Reorder from [facility] for eRx and Interaction Alerts*metformin hydrochloride 500 MG Oral Tablet ORAL , Notes to Pharmacist: metformin hydrochloride 500 MG Oral TabletOriginal Medicationmetformin hydrochloride 500 MG Oral Tablet *Reorder from [facility] for eRx and Interaction Alerts*timolol 2.5 MG/ML Ophthalmic Solution , Notes to Pharmacist: timolol 2.5 MG/ML Ophthalmic SolutionOriginal Medicationtimolol 2.5 MG/ML Ophthalmic Solution *Reorder from [facility] for eRx and Interaction Alerts*Medication List reviewed and reconciled with the patientTaking Lisinopril 40 MG Oral Tablet ORAL , Notes to Pharmacist: lisinopril 40 MG Oral TabletOriginal Medicationlisinopril 40 MG Oral Tablet *Reorder from [facility] for eRx and Interaction Alerts*Taking Carvedilol 6.25 MG Oral Tablet ORAL , Notes to Pharmacist: carvedilol 6.25 MG Oral TabletOriginal Medicationcarvedilol 6.25 MG Oral Tablet *Reorder from [facility] for eRx and Interaction Alerts*Taking 24 HR glipizide 10 MG Extended Release Oral Tablet ORAL , Notes to Pharmacist: 24 HR glipizide 10 MG Extended Release Oral TabletOriginal [id number] HR glipizide 10 MG Extended Release Oral Tablet *Reorder from [facility] for eRx and Interaction Alerts*Taking atorvastatin 10 MG Oral Tablet ORAL , Notes to Pharmacist: atorvastatin 10 MG Oral TabletOriginal Medicationatorvastatin 10 MG Oral Tablet *Reorder from [facility] for eRx and Interaction Alerts*Taking esomeprazole 40 MG Delayed Release Oral Capsule [Nexium] ORAL , Notes to Pharmacist: esomeprazole 40 MG Delayed Release Oral Capsule [Nexium]Original Medicationesomeprazole 40 MG Delayed Release Oral Capsule [Nexium] *Reorder from [facility] for eRx and Interaction Alerts*Taking latanoprost 0.05 MG/ML Ophthalmic Solution , Notes to Pharmacist: latanoprost 0.05 MG/ML Ophthalmic SolutionOriginal Medicationlatanoprost 0.05 MG/ML Ophthalmic Solution *Reorder from [facility] for eRx and Interaction Alerts*Taking metformin hydrochloride 500 MG Oral Tablet ORAL , Notes to Pharmacist: metformin hydrochloride 500 MG Oral TabletOriginal Medicationmetformin hydrochloride 500 MG Oral Tablet *Reorder from [facility] for eRx and Interaction Alerts*Taking timolol 2.5 MG/ML Ophthalmic Solution , Notes to Pharmacist: timolol 2.5 MG/ML Ophthalmic SolutionOriginal Medicationtimolol 2.5 MG/ML Ophthalmic Solution *Reorder from [facility] for eRx and Interaction Alerts*Medication List reviewed and reconciled with the patient * Allergies: D uricef: Allergy - Onset Date 12/30/2014 Objective: * Examination: P hysical Examination: Gen: T he patient is awake, alert, well developed, well groomed and well nourished. They are in no apparent distress. . Musc: F oot structure is normal bilateral. Muscle strength is 5/5 to all joints bilaterally. There is no pain on palpation. . Derm: T here is absent hair growth on bilateral feet. There are pigmentary changes of bilateral foot. The skin color is red. The skin texture is thin and shiny. Distal cooling noted in bilateral feet. Nails are thick, discolored, and dystrophic with subungual debris. They are painful to palpation. . Neuro: G rossly intact to light touch bilateral . Vasc: P osterior tibialis pulse 0/4 bilaterally. Dorsalis pedis pulse 0/4 bilaterally. No edema noted. Capillary fill time > 3 seconds to all digits. . Assessment: * Assessment: 1. F ungal infection of nail - B35.1 (Primary) 2 . P ain in right toe(s) - M79.674 3 . P ain in left toe(s) - M79.675 4 . U nspecified atherosclerosis of [place] arteries of extremities, bilateral legs - I70.203 Plan: * Treatment: * Follow Up: 9 weeks Billing Information: * Visit Code: 67152 Office Visit, Est Pt., Level 3. * Procedure Codes: * Electronic signature of DIXIE RAMIREZ DPM on 07/30/2025 at 09:22 AM FOREST RANGER TECHNICIAN Sign off status: Pending * Provider: Zara Ramirez DPM Date: 0 08/26/2024 Generated for Ana frias/Mike/Sadie on: 1 09:22 AM FOREST RANGER TECHNICIAN
--- OUTSIDE RECORDS SUMMARY | 2024-11-25 02:20 | XMS_ITS ---
Author Organization [facility] Address [address] [place], [place] [address] Care Team Providers Care Trash Collector Supervisor Name Role Phone DIXIE RAMIREZ Unavailable [phone] Ellen Rowley Unavailable Unavailable REASON FOR VISIT *General care Encounters Encounter Location Date Provider Diagnosis [facility] [address] [place], [place] [address] 11/25/2024 DIXIE RAMIREZ Plan Of Treatment Next Appt Details Provider Name:DIXIE GIBBS, 09/22/2025 10:20:00 AM, [address], [place], [place], [id number], Progress Notes * JAYSON LOPEZ EDOB:1950 (75 yo F)Acc No.[id number]:11/25/2024 Patient: JAYSON LINO Provider: Zara Ramirez DPM :1950 A ge:74 Y S ex:Female Date:11/25/2024 Address:[address] [place], [place] [phone] Subjective: * Chief Complaints: * * General care * Electronic signature of DIXIE RAMIREZ DPM on 07/30/2025 at 09:23 AM AVIATION MAINTENANCE INSTRUCTOR Sign off status: Pending * Provider: Zara Ramirez DPM Date: 0 11/25/2024 Generated for Ana Wolffg/Sadie on: 1 09:23 AM AVIATION MAINTENANCE INSTRUCTOR
--- OUTSIDE RECORDS SUMMARY | 2025-01-06 05:10 | XMS_ITS ---
Author Organization [facility] Address [address] [place], [place] [id number] Care Team Providers Care Marketing Project Specialist Name Role Phone DIXIE RAMIREZ Unavailable [phone] Ellen Rowley Unavailable Unavailable Allergies Allergen (clinical drug ingredient) Drug/Non Drug Allergy documented on EMR Reaction Allergy Type Onset Date Status cefadroxil Duricef (uncoded) Unknown Allergy 12/30/2014 active REASON FOR VISIT *General care Medications Medication SIG (Take, Route, Frequency, Duration) Notes Start Date End Date Status atorvastatin 10 MG Oral Tablet ORAL atorvastatin 10 MG Oral TabletOriginal Medicationatorvastatin 10 MG Oral Tablet *Reorder from [employer] for eRx and Interaction Alerts* 12/30/2014 Active timolol 2.5 MG/ML Ophthalmic Solution timolol 2.5 MG/ML Ophthalmic SolutionOriginal Medicationtimolol 2.5 MG/ML Ophthalmic Solution *Reorder from [employer] for eRx and Interaction Alerts* 12/30/2014 Active metformin hydrochloride 500 MG Oral Tablet ORAL metformin hydrochloride 500 MG Oral TabletOriginal Medicationmetformin hydrochloride 500 MG Oral Tablet *Reorder from [employer] for eRx and Interaction Alerts* 12/30/2014 Active latanoprost 0.05 MG/ML Ophthalmic Solution latanoprost 0.05 MG/ML Ophthalmic SolutionOriginal Medicationlatanoprost 0.05 MG/ML Ophthalmic Solution *Reorder from [employer] for eRx and Interaction Alerts* 12/30/2014 Active esomeprazole 40 MG Delayed Release Oral Capsule [Nexium] ORAL esomeprazole 40 MG Delayed Release Oral Capsule [Nexium]Original Medicationesomeprazole 40 MG Delayed Release Oral Capsule [Nexium] *Reorder from [employer] on Request for eRx and Interaction Alerts* 12/30/2014 Active Lisinopril 40 MG Oral Tablet ORAL lisinopril 40 MG Oral TabletOriginal Medicationlisinopril 40 MG Oral Tablet *Reorder from [facility] for eRx and Interaction Alerts* 12/30/2014 Active 24 HR glipizide 10 MG Extended Release Oral Tablet ORAL 24 HR glipizide 10 MG Extended Release Oral TabletOriginal [id number] HR glipizide 10 MG Extended Release Oral Tablet *Reorder from [employer] on Request for eRx and Interaction Alerts* 12/30/2014 Active Carvedilol 6.25 MG Oral Tablet ORAL carvedilol 6.25 MG Oral TabletOriginal Medicationcarvedilol 6.25 MG Oral Tablet *Reorder from [facility] for eRx and Interaction Alerts* 12/30/2014 Active Social History Social History Additional Details Category Social Info Options Details Migrated Social History Migrated Social History Smoking Status : Never smoked , History of tobacco use : Vital Signs Height 63.00 in 01/06/2025 Weight 150 lbs 01/06/2025 BMI 26.57 kg/m2 01/06/2025 Height-cm 160.02 cm 01/06/2025 Weight-kg 68.04 kg 01/06/2025 Encounters Encounter Location Date Provider Diagnosis [facility] [address] [facility] [address] [place], [place] [id number] 01/06/2025 DIXIE RAMIREZ Fungal infection of nail B35.1 ; Pain in right toe(s) M79.674 ; Pain in left toe(s) M79.675 and Unspecified atherosclerosis of [place] arteries of extremities, bilateral legs I70.203 Assessments Encounter Date Diagnosis (ICD Code) Assessment Notes Treatment Notes Treatment Clinical Notes Section Notes 01/06/2025 Fungal infection of nail (ICD-10 - B35.1) 01/06/2025 Pain in right toe(s) (ICD-10 - M79.674) 01/06/2025 Pain in left toe(s) (ICD-10 - M79.675) 01/06/2025 Unspecified atherosclerosis of [place] arteries of extremities, bilateral legs (ICD-10 - I70.203) 01/06/2025 Other Nails 1-5 Bilateral were debrided extensively [...] [address], [place], [place], [id number], History and Physical Notes * HPI (History of Present Illness) Category Sub-Category Detail Notes Category Not es HPI General care Patient presents to the office for diabetic foot care. Patient states that their nails are thickened, elongated and painful. Patient states that it is aggravated by shoe gear. Onset is gradual., Patient is taking prescription blood thinners., Date last seen by Dr. Rowley was November 2024., Initials da Examination Category Sub-Category Detail Notes Category Not [...] * JAYSON LOPEZ EDOB:1950 (75 yo F)Acc No.[id number]:01/06/2025 Patient: JAYSON LINO Provider: Zara Ramirez DPM :1950 A ge:74 Y S ex:Female Date:01/06/2025 Address:[address] [place] [address] Subjective: * Chief Complaints: * * General care * HPI: H PI: General care P ramona presents to the office for diabetic foot care. Patient states that their nails are thickened, elongated and painful. Patient states that it is aggravated by shoe gear. Onset is gradual., Patient is taking prescription blood thinners., Date last seen by Dr. Rowley was November 2024., Initials da. * ROS: G eneral / Constitutional: Patient denies c hange in appetite, fatigue, chills, fever.? C ardiovascular: Chest pain d enies. N eurologic: Loss of use of extremity d enies. * Medical History: Diabetic Medical History Verified * Surgical History: Denies Past Surgical History. Surgical History verified. * Hospitalization/Major Diagno stic Procedure: Denies Past Hospitalization. Hospitalization Verified. * Family History: F ather: PRN - Father: :: Arthritis,,known absent , :: Cardiovascular disease,,known absent .?Mother: PRN - Mother: :: Neurological disorder,,known absent , :: Pneumonia,,known absent , :: Arthritis,,known absent . B rother: SIB - Brother: :: Back Problem,,known absent , :: Hypertension,,known absent , :: Diabetes,,known absent , :: Arthritis,,known absent . S ister: SIB - Sister: . F amily History Verified.. * Social History: M igrated Social History: M igrated Social History: Smoking Status : Never smoked , History of tobacco use :. S ocial History Verified. * Medications: T akingLisinopril 40 MG Oral Tablet ORAL , Notes to Pharmacist: lisinopril 40 MG Oral TabletOriginal Medicationlisinopril 40 MG Oral Tablet *Reorder from [employer] for eRx and Interaction Alerts*Carvedilol 6.25 MG Oral Tablet ORAL , Notes to Pharmacist: carvedilol 6.25 MG Oral TabletOriginal Medicationcarvedilol 6.25 MG Oral Tablet *Reorder from [employer] for eRx and Interaction Alerts*24 HR glipizide 10 MG Extended Release Oral Tablet ORAL , Notes to Pharmacist: 24 HR glipizide 10 MG Extended Release Oral TabletOriginal [id number] HR glipizide 10 MG Extended Release Oral Tablet *Reorder from [facility] for eRx and Interaction Alerts*atorvastatin 10 MG Oral Tablet ORAL , Notes to Pharmacist: atorvastatin 10 MG Oral TabletOriginal Medicationatorvastatin 10 MG Oral Tablet *Reorder from [facility] for eRx and Interaction Alerts*esomeprazole 40 MG Delayed Release Oral Capsule [Nexium] ORAL , Notes to Pharmacist: esomeprazole 40 MG Delayed Release Oral Capsule [Nexium]Original Medicationesomeprazole 40 MG Delayed Release Oral Capsule [Nexium] *Reorder from [facility] for eRx and Interaction Alerts*latanoprost 0.05 MG/ML Ophthalmic Solution , Notes to Pharmacist: latanoprost 0.05 MG/ML Ophthalmic SolutionOriginal Medicationlatanoprost 0.05 MG/ML Ophthalmic Solution *Reorder from [facility] for eRx and Interaction Alerts*metformin hydrochloride 500 MG Oral Tablet ORAL , Notes to Pharmacist: metformin hydrochloride 500 MG Oral TabletOriginal Medicationmetformin hydrochloride 500 MG Oral Tablet *Reorder from [facility] for eRx and Interaction Alerts*timolol 2.5 MG/ML Ophthalmic Solution , Notes to Pharmacist: timolol 2.5 MG/ML Ophthalmic SolutionOriginal Medicationtimolol 2.5 MG/ML Ophthalmic Solution *Reorder from [facility] for eRx and Interaction Alerts*Medication List reviewed and reconciled with the patientTaking Lisinopril 40 MG Oral Tablet ORAL , Notes to Pharmacist: lisinopril 40 MG Oral TabletOriginal Medicationlisinopril 40 MG Oral Tablet *Reorder from [facility] for eRx and Interaction Alerts*Taking Carvedilol 6.25 MG Oral Tablet ORAL , Notes to Pharmacist: carvedilol 6.25 MG Oral TabletOriginal Medicationcarvedilol 6.25 MG Oral Tablet *Reorder from [facility] for eRx and Interaction Alerts*Taking 24 HR glipizide 10 MG Extended Release Oral Tablet ORAL , Notes to Pharmacist: 24 HR glipizide 10 MG Extended Release Oral TabletOriginal [id number] HR glipizide 10 MG Extended Release Oral Tablet *Reorder from [facility] for eRx and Interaction Alerts*Taking atorvastatin 10 MG Oral Tablet ORAL , Notes to Pharmacist: atorvastatin 10 MG Oral TabletOriginal Medicationatorvastatin 10 MG Oral Tablet *Reorder from [facility] for eRx and Interaction Alerts*Taking esomeprazole 40 MG Delayed Release Oral Capsule [Nexium] ORAL , Notes to Pharmacist: esomeprazole 40 MG Delayed Release Oral Capsule [Nexium]Original Medicationesomeprazole 40 MG Delayed Release Oral Capsule [Nexium] *Reorder from [facility] for eRx and Interaction Alerts*Taking latanoprost 0.05 MG/ML Ophthalmic Solution , Notes to Pharmacist: latanoprost 0.05 MG/ML Ophthalmic SolutionOriginal Medicationlatanoprost 0.05 MG/ML Ophthalmic Solution *Reorder from [facility] for eRx and Interaction Alerts*Taking metformin hydrochloride 500 MG Oral Tablet ORAL , Notes to Pharmacist: metformin hydrochloride 500 MG Oral TabletOriginal Medicationmetformin hydrochloride 500 MG Oral Tablet *Reorder from [facility] for eRx and Interaction Alerts*Taking timolol 2.5 MG/ML Ophthalmic Solution , Notes to Pharmacist: timolol 2.5 MG/ML Ophthalmic SolutionOriginal Medicationtimolol 2.5 MG/ML Ophthalmic Solution *Reorder from [facility] for eRx and Interaction Alerts*Medication List reviewed and reconciled with the patient * Allergies: D uricef: Allergy - Onset Date 12/30/2014yesAllergies Verified. Objective: * Vitals: W t: 150 lbs, Wt-k.04 kg, Ht: 63.00 in, Ht-cm: 160.02 cm, BMI: 26.57 Index, Body Surface Area: 1.74. * Examination: P hysical Examination: Gen: T [...] M79.675 4 . U nspecified atherosclerosis of [place] arteries of extremities, bilateral legs - I70.203 Plan: * Treatment: * Follow Up: 9 weeks Billing Information: * Visit Code: 88472 Office Visit, Est Pt., Level 3. * Procedure Codes: * Electronic signature of DIXIE RAMIREZ DPM on 07/30/2025 at 09:23 AM HAND NAILER Sign off status: Pending * Provider: Zara Ramirez DPM Date: 0 01/06/2025 Generated for Ana frias/Mike/Alonaitting on: 1 09:23 AM HAND NAILER
--- OUTSIDE RECORDS SUMMARY | 2025-03-10 05:40 | XMS_ITS ---
Author Organization [facility] Address [address] [place], [place] [address] Care Team Providers Care Development Lead Name Role Phone DIXIE RAMIREZ Unavailable [phone] Ellen Rowley Unavailable Unavailable Allergies Allergen (clinical drug ingredient) Drug/Non Drug Allergy documented on EMR Reaction Allergy Type Onset Date Status cefadroxil Duricef (uncoded) Unknown Allergy 12/30/2014 active REASON FOR VISIT *General care Medications Medication SIG (Take, Route, Frequency, Duration) Notes Start Date End Date Status 24 HR glipizide 10 MG Extended Release Oral Tablet ORAL 24 HR glipizide 10 MG Extended Release Oral TabletOriginal Lexkepqibw78 HR glipizide 10 MG Extended Release Oral Tablet *Reorder from [employer] for eRx and Interaction Alerts* 12/30/2014 Active Carvedilol 6.25 MG Oral Tablet ORAL carvedilol 6.25 MG Oral TabletOriginal Medicationcarvedilol 6.25 MG Oral Tablet *Reorder from [employer] for eRx and Interaction Alerts* 12/30/2014 Active Lisinopril 40 MG Oral Tablet ORAL lisinopril 40 MG Oral TabletOriginal Medicationlisinopril 40 MG Oral Tablet *Reorder from [employer] for eRx and Interaction Alerts* 12/30/2014 Active Eliquis Active Aspirin 81 Active atorvastatin 10 MG Oral Tablet ORAL atorvastatin 10 MG Oral TabletOriginal Medicationatorvastatin 10 MG Oral Tablet *Reorder from [employer] for eRx and Interaction Alerts* 12/30/2014 Active metformin hydrochloride 500 MG Oral Tablet ORAL metformin hydrochloride 500 MG Oral TabletOriginal Medicationmetformin hydrochloride 500 MG Oral Tablet *Reorder from [employer] for eRx and Interaction Alerts* 12/30/2014 Active latanoprost 0.05 MG/ML Ophthalmic Solution latanoprost 0.05 MG/ML Ophthalmic SolutionOriginal Medicationlatanoprost 0.05 MG/ML Ophthalmic Solution *Reorder from [employer] for eRx and Interaction Alerts* 12/30/2014 Active esomeprazole 40 MG Delayed Release Oral Capsule [Nexium] ORAL esomeprazole 40 MG Delayed Release Oral Capsule [Nexium]Original Medicationesomeprazole 40 MG Delayed Release Oral Capsule [Nexium] *Reorder from [employer] for eRx and Interaction Alerts* 12/30/2014 Active timolol 2.5 MG/ML Ophthalmic Solution timolol 2.5 MG/ML Ophthalmic SolutionOriginal Medicationtimolol 2.5 MG/ML Ophthalmic Solution *Reorder from [employer] for eRx and Interaction Alerts* 12/30/2014 Active Social History Social History Additional Details Category Social Info Options Details Migrated Social History Migrated Social History Smoking Status : Never smoked , History of tobacco use : Encounters Encounter Location Date Provider Diagnosis [facility] [address] [facility] [address] [place], [place] [id number] 03/10/2025 DIXIE RAMIREZ Fungal infection of nail B35.1 ; Pain in right toe(s) M79.674 ; Pain in left toe(s) M79.675 and Unspecified atherosclerosis of [place] arteries of extremities, bilateral legs I70.203 Assessments Encounter Date Diagnosis (ICD Code) Assessment Notes Treatment Notes Treatment Clinical Notes Section Notes 03/10/2025 Fungal infection of nail (ICD-10 - B35.1) 03/10/2025 Pain in right toe(s) (ICD-10 - M79.674) 03/10/2025 Pain in left toe(s) (ICD-10 - M79.675) 03/10/2025 Unspecified atherosclerosis of [place] arteries of extremities, bilateral legs (ICD-10 - I70.203) 03/10/2025 Other Nails 1-5 Bilateral were debrided extensively [...] [address], [place], [place], [id number], History and Physical Notes * HPI (History of Present Illness) Category Sub-Category Detail Notes Category Not es HPI General care Patient presents to the office for diabetic foot care. Patient states that their nails are thickened, elongated and painful. Patient states that it is aggravated by shoe gear. Onset is gradual., Patient is taking prescription blood thinners and an aspirin daily., Date last seen by Dr. Rowley was 02/28/25., Initials mf Examination Category Sub-Category Detail Notes Category Not [...] * JAYSON LOPEZ EDOB:1950 (75 yo F)Acc No.[id number]:03/10/2025 Patient: Joy DAYYARELISET Zara Provider: Zara Ramirez DPM :1950 A ge:74 Y S ex:Female Date:03/10/2025 Address:[address] [place], [place] [phone] Subjective: * Chief Complaints: * * General care * HPI: H PI: General care P ramona presents to the office for diabetic foot care. Patient states that their nails are thickened, elongated and painful. Patient states that it is aggravated by shoe gear. Onset is gradual., Patient is taking prescription blood thinners and an aspirin daily., Date last seen by Dr. Rowley was 02/28/25., Initials mf. * ROS: G eneral / Constitutional: Patient denies c hange in appetite, fatigue, chills, fever.? C ardiovascular: Chest pain d enies. N eurologic: Loss of use of extremity d enies. * Medical History: Diabetic Medical History Verified * Family History: F ather: PRN - [...] S ocial History Verified. * Medications: T akingAspirin 81 Eliquis Lisinopril 40 MG Oral Tablet ORAL , Notes to Pharmacist: lisinopril 40 MG Oral TabletOriginal Medicationlisinopril 40 MG Oral Tablet *Reorder from [employer] for eRx and Interaction Alerts*Carvedilol 6.25 MG Oral Tablet ORAL , Notes to Pharmacist: carvedilol 6.25 MG Oral TabletOriginal Medicationcarvedilol 6.25 MG Oral Tablet *Reorder from [employer] for eRx and Interaction Alerts*24 HR glipizide 10 MG Extended Release Oral Tablet ORAL , Notes to Pharmacist: 24 HR glipizide 10 MG Extended Release Oral TabletOriginal Jvrotkbavi59 HR glipizide 10 MG Extended Release Oral Tablet *Reorder from [employer] for eRx and Interaction Alerts*atorvastatin 10 MG Oral Tablet ORAL , Notes to Pharmacist: atorvastatin 10 MG Oral TabletOriginal Medicationatorvastatin 10 MG Oral Tablet *Reorder from [facility] for eRx and Interaction Alerts*esomeprazole 40 MG Delayed Release Oral Capsule [Nexium] ORAL , Notes to Pharmacist: esomeprazole 40 MG Delayed Release Oral Capsule [Nexium]Original Medicationesomeprazole 40 MG Delayed Release Oral Capsule [Nexium] *Reorder from [facility] for eRx and Interaction Alerts*latanoprost 0.05 MG/ML Ophthalmic Solution , Notes to Pharmacist: latanoprost 0.05 MG/ML Ophthalmic SolutionOriginal Medicationlatanoprost 0.05 MG/ML Ophthalmic Solution *Reorder from [facility] for eRx and Interaction Alerts*metformin hydrochloride 500 MG Oral Tablet ORAL , Notes to Pharmacist: metformin hydrochloride 500 MG Oral TabletOriginal Medicationmetformin hydrochloride 500 MG Oral Tablet *Reorder from [facility] for eRx and Interaction Alerts*timolol 2.5 MG/ML Ophthalmic Solution , Notes to Pharmacist: timolol 2.5 MG/ML Ophthalmic SolutionOriginal Medicationtimolol 2.5 MG/ML Ophthalmic Solution *Reorder from [facility] for eRx and Interaction Alerts*Medication List reviewed and reconciled with the patientTaking Aspirin 81 Taking Eliquis Taking Lisinopril 40 MG Oral Tablet ORAL , Notes to Pharmacist: lisinopril 40 MG Oral TabletOriginal Medicationlisinopril 40 MG Oral Tablet *Reorder from [facility] for eRx and Interaction Alerts*Taking Carvedilol 6.25 MG Oral Tablet ORAL , Notes to Pharmacist: carvedilol 6.25 MG Oral TabletOriginal Medicationcarvedilol 6.25 MG Oral Tablet *Reorder from [facility] for eRx and Interaction Alerts*Taking 24 HR glipizide 10 MG Extended Release Oral Tablet ORAL , Notes to Pharmacist: 24 HR glipizide 10 MG Extended Release Oral TabletOriginal Ijuzqmjnjw90 HR glipizide 10 MG Extended Release Oral Tablet *Reorder from [facility] for eRx and Interaction Alerts*Taking atorvastatin 10 MG Oral Tablet ORAL , Notes to Pharmacist: atorvastatin 10 MG Oral TabletOriginal Medicationatorvastatin 10 MG Oral Tablet *Reorder from [facility] for eRx and Interaction Alerts*Taking esomeprazole 40 MG Delayed Release Oral Capsule [Nexium] ORAL , Notes to Pharmacist: esomeprazole 40 MG Delayed Release Oral Capsule [Nexium]Original Medicationesomeprazole 40 MG Delayed Release Oral Capsule [Nexium] *Reorder from [facility] for eRx and Interaction Alerts*Taking latanoprost 0.05 MG/ML Ophthalmic Solution , Notes to Pharmacist: latanoprost 0.05 MG/ML Ophthalmic SolutionOriginal Medicationlatanoprost 0.05 MG/ML Ophthalmic Solution *Reorder from [facility] for eRx and Interaction Alerts*Taking metformin hydrochloride 500 MG Oral Tablet ORAL , Notes to Pharmacist: metformin hydrochloride 500 MG Oral TabletOriginal Medicationmetformin hydrochloride 500 MG Oral Tablet *Reorder from [facility] for eRx and Interaction Alerts*Taking timolol 2.5 MG/ML Ophthalmic Solution , Notes to Pharmacist: timolol 2.5 MG/ML Ophthalmic SolutionOriginal Medicationtimolol 2.5 MG/ML Ophthalmic Solution *Reorder from [facility] for eRx and Interaction Alerts*Medication List reviewed and reconciled with the patient * Allergies: D uricef: Allergy - Onset Date 12/30/2014yesAllergies Verified. Objective: * Examination: P hysical Examination: Gen: [...] M79.675 4 . U nspecified atherosclerosis of [place] arteries of extremities, bilateral legs - I70.203 Plan: * Treatment: * Preventive Medicine: Screenings: F all risk screening Fall Risk Assessment: N o falls in the past year * Follow Up: 9 weeks Billing Information: * Visit Code: 91461 Office Visit, Est Pt., Level 3. * Procedure Codes: * Electronic signature of DIXIE RAMIREZ DPM on 07/30/2025 at 09:22 AM EXAMINATION GRADER Sign off status: Pending * Provider: Zara Ramirez DPM Date: 0 03/10/2025 Generated for Ana frias/Mike/Sadie on: 1 09:22 AM EXAMINATION GRADER
--- OUTSIDE RECORDS SUMMARY | 2025-05-19 04:20 | XMS_ITS ---
Author Organization [facility] Address [address] [place], [place] [id number] Care Team Providers Care Drop Wire Builder Name Role Phone DIXIE RAMIREZ Unavailable [phone] Ellen Rowley Unavailable Unavailable Allergies Allergen (clinical [...] Medicationlisinopril 40 MG Oral Tablet *Reorder from [employer] for eRx and Interaction Alerts* 12/30/2014 Active Eliquis Active Aspirin 81 Active timolol 2.5 MG/ML Ophthalmic Solution timolol 2.5 MG/ML Ophthalmic SolutionOriginal Medicationtimolol 2.5 MG/ML Ophthalmic Solution *Reorder from [employer] for eRx and Interaction Alerts* 12/30/2014 Active metformin hydrochloride 500 MG Oral Tablet ORAL metformin hydrochloride 500 MG Oral TabletOriginal Medicationmetformin hydrochloride 500 MG Oral Tablet *Reorder from [employer] for eRx and Interaction Alerts* 12/30/2014 Active latanoprost 0.05 MG/ML Ophthalmic Solution latanoprost 0.05 MG/ML Ophthalmic SolutionOriginal Medicationlatanoprost 0.05 MG/ML Ophthalmic Solution *Reorder from [employer] for eRx and Interaction Alerts* 12/30/2014 Active esomeprazole 40 MG Delayed Release Oral Capsule [Nexium] ORAL esomeprazole 40 MG Delayed Release Oral Capsule [Nexium]Original Medicationesomeprazole 40 MG Delayed Release Oral Capsule [Nexium] *[facility] eRx and Interaction Alerts* 12/30/2014 Active atorvastatin 10 MG Oral Tablet ORAL atorvastatin 10 MG Oral TabletOriginal Medicationatorvastatin 10 MG Oral Tablet *Reorder from [facility] for eRx and Interaction Alerts* 12/30/2014 Active 24 HR glipizide 10 MG Extended Release Oral Tablet ORAL 24 HR glipizide 10 MG Extended Release Oral TabletOriginal [id number] HR glipizide 10 MG Extended Release Oral Tablet *Reorder from [facility] for eRx and Interaction Alerts* 12/30/2014 Active Carvedilol 6.25 MG Oral Tablet ORAL carvedilol 6.25 MG Oral TabletOriginal Medicationcarvedilol 6.25 MG Oral Tablet *Reorder from [facility] for eRx and Interaction Alerts* 12/30/2014 Active Social History Social History Additional Details Category Social Info Options Details Migrated Social History Migrated Social History Smoking Status : Never smoked , History of tobacco use : Vital Signs Height 63.00 in 05/19/2025 Weight 150 lbs 05/19/2025 BMI 26.57 kg/m2 05/19/2025 Height-cm 160.02 cm 05/19/2025 Weight-kg 68.04 kg 05/19/2025 Encounters Encounter Location Date Provider Diagnosis [facility] [address] [place], [place] [id number] 05/19/2025 DIXIE RAMIREZ Fungal infection of nail B35.1 ; Pain in right toe(s) M79.674 ; Pain in left toe(s) M79.675 and Unspecified atherosclerosis of [place] arteries of extremities, bilateral legs I70.203 Assessments Encounter Date Diagnosis (ICD Code) Assessment Notes Treatment Notes Treatment Clinical Notes Section Notes 05/19/2025 Fungal infection of nail (ICD-10 - B35.1) 05/19/2025 Pain in right toe(s) (ICD-10 - M79.674) 05/19/2025 Pain in left toe(s) (ICD-10 - M79.675) 05/19/2025 Unspecified atherosclerosis of [place] arteries of extremities, bilateral legs (ICD-10 - I70.203) 05/19/2025 Other Nails 1-5 Bilateral were debrided extensively [...] [address], [place], [place], [id number], History and Physical Notes * HPI (History of Present Illness) Category Sub-Category Detail Notes Category Not es HPI General care Patient presents to the office for diabetic foot care. Patient states that their nails are thickened, elongated and painful. Patient states that it is aggravated by shoe gear. Onset is gradual., Patient denies taking blood thinners., Date last seen by Dr. Rowley was December 2024. , Initials ch Examination Category Sub-Category Detail Notes Category Not [...] * JAYSON LOPEZ EDOB:1950 (75 yo F)Acc No.[id number]:05/19/2025 Patient: JAYSON LINO Provider: Zara Ramirez DPM :1950 A ge:75 Y S ex:Female Date:05/19/2025 Address:[address] [place] [address] Subjective: * Chief Complaints: * * General care * HPI: H PI: General care P ramona presents to the office for diabetic foot care. Patient states that their nails are thickened, elongated and painful. Patient states that it is aggravated by shoe gear. Onset is gradual., Patient denies taking blood thinners., Date last seen by Dr. Rowley was December 2024. , Initials ch. * ROS: G eneral / Constitutional: Patient denies c hange in appetite, fatigue, chills, fever.? C ardiovascular: Chest pain d enies. N eurologic: Loss of use of extremity d enies. * Medical History: Diabetic Medical History Verified * Surgical History: No Surgical History documented. Surgical History verified. * Hospitalization/Major Diagno stic Procedure: No Hospitalization Documented. Hospitalization Verified. * Family History: F ather: [...] Medicationlisinopril 40 MG Oral Tablet *Reorder from [employer] for eRx and Interaction Alerts*Carvedilol 6.25 MG Oral Tablet ORAL , Notes to Pharmacist: carvedilol 6.25 MG Oral TabletOriginal Medicationcarvedilol 6.25 MG Oral Tablet *Reorder from [employer] for eRx and Interaction Alerts*24 HR glipizide 10 MG Extended Release Oral Tablet ORAL , Notes to Pharmacist: 24 HR glipizide 10 MG Extended Release Oral TabletOriginal [id number] HR glipizide 10 MG Extended Release Oral Tablet *Reorder from [facility] for eRx and Interaction Alerts*atorvastatin 10 MG Oral Tablet ORAL , Notes to Pharmacist: atorvastatin 10 MG Oral TabletOriginal Medicationatorvastatin 10 MG Oral Tablet *Reorder from [facility] for eRx and Interaction Alerts*esomeprazole 40 MG Delayed Release Oral Capsule [Nexium] ORAL , Notes to Pharmacist: esomeprazole 40 MG Delayed Release Oral Capsule [Nexium]Original Medicationesomeprazole 40 MG Delayed Release Oral Capsule [Nexium] *Reorder from [facility] for eRx and Interaction Alerts*latanoprost 0.05 MG/ML Ophthalmic Solution , Notes to Pharmacist: latanoprost 0.05 MG/ML Ophthalmic SolutionOriginal Medicationlatanoprost 0.05 MG/ML Ophthalmic Solution *Reorder from [facility] for eRx and Interaction Alerts*metformin hydrochloride 500 MG Oral Tablet ORAL , Notes to Pharmacist: metformin hydrochloride 500 MG Oral TabletOriginal Medicationmetformin hydrochloride 500 MG Oral Tablet *Reorder from [facility] for eRx and Interaction Alerts*timolol 2.5 MG/ML Ophthalmic Solution , Notes to Pharmacist: timolol 2.5 MG/ML Ophthalmic SolutionOriginal Medicationtimolol 2.5 MG/ML Ophthalmic Solution *Reorder from [facility] for eRx and Interaction Alerts*Medication List reviewed and reconciled with the patientTaking Aspirin 81 Taking Eliquis Taking Lisinopril 40 MG Oral Tablet ORAL , Notes to Pharmacist: lisinopril 40 MG Oral TabletOriginal Medicationlisinopril 40 MG Oral Tablet *Reorder from [facility] for eRx and Interaction Alerts*Taking Carvedilol 6.25 MG Oral Tablet ORAL , Notes to Pharmacist: carvedilol 6.25 MG Oral TabletOriginal Medicationcarvedilol 6.25 MG Oral Tablet *Reorder from [facility] for eRx and Interaction Alerts*Taking 24 HR glipizide 10 MG Extended Release Oral Tablet ORAL , Notes to Pharmacist: 24 HR glipizide 10 MG Extended Release Oral TabletOriginal [id number] HR glipizide 10 MG Extended Release Oral Tablet *Reorder from [facility] for eRx and Interaction Alerts*Taking atorvastatin 10 MG Oral Tablet ORAL , Notes to Pharmacist: atorvastatin 10 MG Oral TabletOriginal Medicationatorvastatin 10 MG Oral Tablet *Reorder from [facility] for eRx and Interaction Alerts*Taking esomeprazole 40 MG Delayed Release Oral Capsule [Nexium] ORAL , Notes to Pharmacist: esomeprazole 40 MG Delayed Release Oral Capsule [Nexium]Original Medicationesomeprazole 40 MG Delayed Release Oral Capsule [Nexium] *Reorder from [facility] for eRx and Interaction Alerts*Taking latanoprost 0.05 MG/ML Ophthalmic Solution , Notes to Pharmacist: latanoprost 0.05 MG/ML Ophthalmic SolutionOriginal Medicationlatanoprost 0.05 MG/ML Ophthalmic Solution *Reorder from [facility] for eRx and Interaction Alerts*Taking metformin hydrochloride 500 MG Oral Tablet ORAL , Notes to Pharmacist: metformin hydrochloride 500 MG Oral TabletOriginal Medicationmetformin hydrochloride 500 MG Oral Tablet *Reorder from [facility] for eRx and Interaction Alerts*Taking timolol 2.5 MG/ML Ophthalmic Solution , Notes to Pharmacist: timolol 2.5 MG/ML Ophthalmic SolutionOriginal Medicationtimolol 2.5 MG/ML Ophthalmic Solution *Reorder from [facility] for eRx and Interaction Alerts*Medication List reviewed [...] M79.675 4 . U nspecified atherosclerosis of [place] arteries of extremities, bilateral legs - I70.203 Plan: * Treatment: * Preventive Medicine: Screenings: F all risk screening Fall Risk Assessment: N o falls in the past year Plan of Care: D ocumented Type of fall plan of care: B alance, strength and gait training or instruction provided Have you had two or more falls in the past year? N o Have you had any falls with injury in the past year? N o * Follow Up: 9 weeks Billing Information: * Procedure Codes: * Electronic signature of DIXIE RAMIREZ DPM on 07/30/2025 at 09:22 AM CONTROL CLERK SUBASSEMBLY Sign off status: Pending * Provider: Zara Ramirez DPM Date: Generated for Ana frias/Mike/Alonaitting on: 09:22 AM CONTROL CLERK SUBASSEMBLY
--- OUTSIDE RECORDS SUMMARY | 2025-07-21 03:20 | XMS_ITS ---
Author Organization [facility] Address [address] [place], [place] [id number] Care Team Providers Care Tonsorial Artist Name Role Phone DIXIE RAMIREZ Unavailable [phone] Ellen Rowley Unavailable Unavailable Allergies Allergen (clinical drug ingredient) Drug/Non Drug Allergy documented on EMR Reaction Allergy Type Onset Date Status cefadroxil Duricef (uncoded) Unknown Allergy 12/30/2014 active REASON FOR VISIT *General care Medications Medication SIG (Take, Route, Frequency, Duration) Notes Start Date End Date Status esomeprazole 40 MG Delayed Release Oral Capsule [Nexium] ORAL esomeprazole 40 MG Delayed Release Oral Capsule [Nexium]Original Medicationesomeprazole 40 MG Delayed Release Oral Capsule [Nexium] *Reorder from [employer] for eRx and Interaction Alerts* 12/30/2014 Active latanoprost 0.05 MG/ML Ophthalmic Solution latanoprost 0.05 MG/ML Ophthalmic SolutionOriginal Medicationlatanoprost 0.05 MG/ML Ophthalmic Solution *Reorder from [employer] for eRx and Interaction Alerts* 12/30/2014 Active atorvastatin 10 MG Oral Tablet ORAL atorvastatin 10 MG Oral TabletOriginal Medicationatorvastatin 10 MG Oral Tablet *Reorder from [employer] for eRx and Interaction Alerts* 12/30/2014 Active timolol 2.5 MG/ML Ophthalmic Solution timolol 2.5 MG/ML Ophthalmic SolutionOriginal Medicationtimolol 2.5 MG/ML Ophthalmic Solution *Reorder from [employer] for eRx and Interaction Alerts* 12/30/2014 Active metformin hydrochloride 500 MG Oral Tablet ORAL metformin hydrochloride 500 MG Oral TabletOriginal Medicationmetformin hydrochloride 500 MG Oral Tablet *Reorder from [employer] for eRx and Interaction Alerts* 12/30/2014 Active 24 HR glipizide 10 MG Extended Release Oral Tablet ORAL 24 HR glipizide 10 MG Extended Release Oral TabletOriginal [id number] HR glipizide 10 MG Extended Release Oral Tablet *[facility] and Interaction Alerts* 12/30/2014 Active Lisinopril 40 MG Oral Tablet ORAL lisinopril 40 MG Oral TabletOriginal Medicationlisinopril 40 MG Oral Tablet *[facility] for [facility] and Interaction Alerts* 12/30/2014 Active Carvedilol 6.25 MG Oral Tablet ORAL carvedilol 6.25 MG Oral TabletOriginal Medicationcarvedilol 6.25 MG Oral Tablet *[facility] for [facility] and Interaction Alerts* 12/30/2014 Active Aspirin 81 Active Eliquis Active Social History Social History Additional Details Category Social Info Options Details Migrated Social History Migrated Social History Smoking Status : Never smoked , History of tobacco use : Vital Signs Height 63.00 in 07/21/2025 Weight 150 lbs 07/21/2025 BMI 26.57 kg/m2 07/21/2025 Height-cm 160.02 cm 07/21/2025 Weight-kg 68.04 kg 07/21/2025 Encounters Encounter Location Date Provider Diagnosis [facility] [address] [place], [place] [id number] 07/21/2025 DIXIE RAMIREZ Fungal infection of nail B35.1 ; Pain in right toe(s) M79.674 ; Pain in left toe(s) M79.675 and Unspecified atherosclerosis of cury[place] arteries of extremities, bilateral legs I70.203 Assessments Encounter Date Diagnosis (ICD Code) Assessment Notes Treatment Notes Treatment Clinical Notes Section Notes 07/21/2025 Fungal infection of nail (ICD-10 - B35.1) 07/21/2025 Pain in right toe(s) (ICD-10 - M79.674) 07/21/2025 Pain in left toe(s) (ICD-10 - M79.675) 07/21/2025 Unspecified atherosclerosis of [place] arteries of extremities, bilateral legs (ICD-10 - I70.203) 07/21/2025 Other Nails 1-5 Bilateral were debrided extensively [...] [address], [place], [place], [id number], History and Physical Notes * HPI (History [...] Date last seen by Dr. Rowley was June 2025., Initials ab Examination Category Sub-Category Detail Notes Category Not [...] * JAYSON LOPEZ EDOB:1950 (75 yo F)Acc No.[id number]:07/21/2025 Patient: JAYSON LINO Provider: Zara Ramirez DPM :1950 A ge:75 Y S ex:Female Date:07/21/2025 Address:[address] [place] [address] Subjective: * Chief Complaints: * * General [...] Date last seen by Dr. Rowley was June 2025., Initials ab. * ROS: G eneral / Constitutional: Patient denies c hange in appetite, fatigue, chills, fever.? C ardiovascular: Chest pain d enies. N eurologic: Loss of use of extremity d enies. * Medical History: Diabetic Medical History Verified * Surgical History: Denies Past Surgical History. Surgical History verified. * Hospitalization/Major Diagno stic Procedure: Denies Past Hospitalization. Hospitalization Verified. * Family History: F ather: unknown, PRN - Father: :: Arthritis,,known absent , :: Cardiovascular disease,,known absent . M other: unknown, PRN - Mother: :: Neurological disorder,,known absent , :: Pneumonia,,known absent , :: Arthritis,,known absent . B rother: unknown, SIB - Brother: :: Back Problem,,known absent , :: Hypertension,,known absent , :: Diabetes,,known absent , :: Arthritis,,known absent . S ister: unknown, SIB - Sister: . F amily History Verified.. * Social History: M igrated Social History: M igrated Social History: Smoking Status : Never smoked , History of tobacco use :. S ocial History Verified. * Medications: T akingAspirin 81 Eliquis Lisinopril 40 MG Oral Tablet ORAL , Notes to Pharmacist: lisinopril 40 MG Oral TabletOriginal Medicationlisinopril 40 MG Oral Tablet *Reorder from [employer] for eRx and Interaction Alerts*Carvedilol 6.25 MG Oral Tablet ORAL , Notes to Pharmacist: carvedilol 6.25 MG Oral TabletOriginal Medicationcarvedilol 6.25 MG Oral Tablet *Reorder from [facility] for eRx and Interaction Alerts*24 HR glipizide 10 MG Extended Release Oral Tablet ORAL , Notes to Pharmacist: 24 HR glipizide 10 MG Extended Release Oral TabletOriginal [id number] HR glipizide 10 MG Extended Release Oral Tablet *Reorder from [facility] for eRx and Interaction Alerts*atorvastatin 10 MG Oral Tablet ORAL , Notes to Pharmacist: atorvastatin 10 MG Oral TabletOriginal Medicationatorvastatin 10 MG Oral Tablet *Reorder from [facility] for eRx and Interaction Alerts*esomeprazole 40 MG Delayed Release Oral Capsule [Nexium] ORAL , Notes to Pharmacist: esomeprazole 40 MG Delayed Release Oral Capsule [Nexium]Original Medicationesomeprazole 40 MG Delayed Release Oral Capsule [Nexium] *Reorder from [facility] for eRx and Interaction Alerts*latanoprost 0.05 MG/ML Ophthalmic Solution , Notes to Pharmacist: latanoprost 0.05 MG/ML Ophthalmic SolutionOriginal Medicationlatanoprost 0.05 MG/ML Ophthalmic Solution *Reorder from [facility] for eRx and Interaction Alerts*metformin hydrochloride 500 MG Oral Tablet ORAL , Notes to Pharmacist: metformin hydrochloride 500 MG Oral TabletOriginal Medicationmetformin hydrochloride 500 MG Oral Tablet *Reorder from [facility] for eRx and Interaction Alerts*timolol 2.5 MG/ML Ophthalmic Solution , Notes to Pharmacist: timolol 2.5 MG/ML Ophthalmic SolutionOriginal Medicationtimolol 2.5 MG/ML Ophthalmic Solution *Reorder from [facility] for eRx and Interaction Alerts*Medication List reviewed and reconciled with the patientTaking Aspirin 81 Taking Eliquis Taking Lisinopril 40 MG Oral Tablet ORAL , Notes to Pharmacist: lisinopril 40 MG Oral TabletOriginal Medicationlisinopril 40 MG Oral Tablet *Reorder from [facility] for eRx and Interaction Alerts*Taking Carvedilol 6.25 MG Oral Tablet ORAL , Notes to Pharmacist: carvedilol 6.25 MG Oral TabletOriginal Medicationcarvedilol 6.25 MG Oral Tablet *Reorder from [facility] for eRx and Interaction Alerts*Taking 24 HR glipizide 10 MG Extended Release Oral Tablet ORAL , Notes to Pharmacist: 24 HR glipizide 10 MG Extended Release Oral TabletOriginal [id number] HR glipizide 10 MG Extended Release Oral Tablet *Reorder from [facility] for eRx and Interaction Alerts*Taking atorvastatin 10 MG Oral Tablet ORAL , Notes to Pharmacist: atorvastatin 10 MG Oral TabletOriginal Medicationatorvastatin 10 MG Oral Tablet *Reorder from [facility] for eRx and Interaction Alerts*Taking esomeprazole 40 MG Delayed Release Oral Capsule [Nexium] ORAL , Notes to Pharmacist: esomeprazole 40 MG Delayed Release Oral Capsule [Nexium]Original Medicationesomeprazole 40 MG Delayed Release Oral Capsule [Nexium] *Reorder from [facility] for eRx and Interaction Alerts*Taking latanoprost 0.05 MG/ML Ophthalmic Solution , Notes to Pharmacist: latanoprost 0.05 MG/ML Ophthalmic SolutionOriginal Medicationlatanoprost 0.05 MG/ML Ophthalmic Solution *Reorder from [facility] for eRx and Interaction Alerts*Taking metformin hydrochloride 500 MG Oral Tablet ORAL , Notes to Pharmacist: metformin hydrochloride 500 MG Oral TabletOriginal Medicationmetformin hydrochloride 500 MG Oral Tablet *Reorder from [facility] for eRx and Interaction Alerts*Taking timolol 2.5 MG/ML Ophthalmic Solution , Notes to Pharmacist: timolol 2.5 MG/ML Ophthalmic SolutionOriginal Medicationtimolol 2.5 MG/ML Ophthalmic Solution *Reorder from [facility] for eRx and Interaction Alerts*Medication List [...] M79.675 4 . U nspecified atherosclerosis of cur[place] arteries of extremities, bilateral legs - I70.203 Plan: * Treatment: * Preventive Medicine: Screenings: F all risk screening Fall Risk Assessment: N o falls in the past year Plan of Care: D ocumented * Follow Up: 9 weeks Billing Information: * Procedure Codes: * Electronic signature of DIXIE RAMIREZ DPM on 07/30/2025 at 09:22 AM MANAGER [employer] Sign off status: Pending * Provider: Zara Ramirez DPM Date: 09/21/2024 Generated for Ana frias/Mike/Sadie on: 09:22 AM MANAGER [employer]
--- OUTSIDE RECORDS SUMMARY | 2025-07-30 09:22 | XMS_ITS | Encounter Summary ---
Author Organization [facility] Address [address] [place] [address] Care Team Providers Care Supply Crib Attendant Name Role Phone Ellen Rowley MD Primary Care Provider [phone] Sam Young MD Unavailable [phone] Javier Pham MD Unavailable [phone] Encounter Details Date Type Department Care Team (Late st Contact Info) Description 05/14/2025 Cardiology Conference [facility] Non-invasive Cardiac Diagnostic Testing [address] [place] [address] Nasir Esquivel, [place] Social History [...] often do you attend chur ch or orthodoxy services? Never 10/31/2024 Do you belong to [...] any time in the past 12 m [facility], were you homeless or living in a custodial (including now)? No 11/05/2024 Social Connection and Isolation Panel Answer Date Recorded In a typical week, how many times do you talk on the phone with family, friends, or neighbors? More than three times a week 04/28/2025 How often do you get togethe r with friends or relatives? More than three times a week 04/28/2025 How often do you attend chur ch or orthodoxy services? Never 04/28/2025 Do you belong to [...] any time in the past 12 m [facility], were you homeless or living in a custodial (including now)? No 04/28/2025 [facility] Utilities Answer Date Recorded In the past 12 months has e [employer], gas, oil, or water [employer] threatened to shut off services in your home? No 04/28/2025 Personal Safety Answer Date Recorded Have you ever been in or are you currently in a harmful physical or emotional relationship or is someone making you feel afraid or unsafe? Denies 05/14/2025 Comments Unknown Sex and Gender Information Value Date Recorded Sex Assigned at Not on file Legal Sex Female 5:32 PM CHIEF MEDIA OFFICER Gender Identity Not on file Sexual Orientation Not on file documented as of this encounter Plan of Treatment Not on file documented as of this encounter Visit Diagnoses Not on filedocumented in this encounter Care Teams Supply Crib Attendant Relationship Specialty Start Date End Date Ellen Rowley MD [address] [place] [address] PCP - General Family Medicine 02/09/22 Sam Young MD [address] [facility] [address] [place] [address] Consulting Physician Cardiology 04/30/25 Javier Pham MD [address] [facility] [address] [place] [address] Consulting Physician Pulmonary Disease 04/30/25 documented as of this encounter
--- OUTSIDE RECORDS SUMMARY | 2025-07-30 09:23 | XMS_ITS | Clinical Summary ---
Author Organization [facility] Address [address] [place] [address] Care Team Providers Care Patch Finisher Name Role Phone Unavailable Primary Care Provider Unavailabl e Social History Tobacco Use Types Packs/Day Years Used Date Smoking Tobacco: Never Assessed Comments Unknown Sex and Gender Information Value Date Recorded Sex Assigned at Not on file Legal Sex Female 11:01 AM HALF SECTION IRONER Gender Identity Not on file Sexual Orientation [...]
--- OUTSIDE RECORDS SUMMARY | 2025-07-30 09:23 | XMS_ITS | Patient Health Record ---
Author Organization [facility] Address [address] [place], [place] [id number] Care Team Providers Care Director Special Education Name Role Phone DIXIE STEWART Unavailable [phone] Ellen Rowley Unavailable Unavailable Allergies Allergen (clinical [...] Delayed Release Oral Capsule [Nexium] *Reorder from [employer] for eRx and Interaction Alerts* 12/30/2014 Active latanoprost 0.05 MG/ML Ophthalmic Solution latanoprost 0.05 MG/ML Ophthalmic SolutionOriginal Medicationlatanoprost 0.05 MG/ML Ophthalmic Solution *Reorder from [employer] for eRx and Interaction Alerts* 12/30/2014 Active 24 HR glipizide 10 MG Extended Release Oral Tablet ORAL 24 HR glipizide 10 MG Extended Release Oral TabletOriginal [id number] HR glipizide 10 MG Extended Release Oral Tablet *Reorder from [employer] for eRx and Interaction Alerts* 12/30/2014 Active atorvastatin 10 MG Oral Tablet ORAL atorvastatin 10 MG Oral TabletOriginal Medicationatorvastatin 10 MG Oral Tablet *Reorder from [employer] for eRx and Interaction Alerts* 12/30/2014 Active Lisinopril 40 MG Oral Tablet ORAL lisinopril 40 MG Oral TabletOriginal Medicationlisinopril 40 MG Oral Tablet *Reorder from [employer] for eRx and Interaction Alerts* 12/30/2014 Active Carvedilol 6.25 MG Oral Tablet ORAL carvedilol 6.25 MG Oral TabletOriginal Medicationcarvedilol 6.25 MG Oral Tablet *Reorder from [employer] for eRx and Interaction Alerts* 12/30/2014 Active Aspirin 81 Active Eliquis Active timolol 2.5 MG/ML Ophthalmic Solution timolol 2.5 MG/ML Ophthalmic SolutionOriginal Medicationtimolol 2.5 MG/ML Ophthalmic Solution *Reorder from [employer] for eRx and Interaction Alerts* 12/30/2014 Active metformin hydrochloride 500 MG Oral Tablet ORAL metformin hydrochloride 500 MG Oral TabletOriginal Medicationmetformin hydrochloride 500 MG Oral Tablet *Reorder from [employer] for eRx and Interaction Alerts* 12/30/2014 Active [...] Pneumococcal polysaccharide PPV23 Unknown 04/01/2020 Ad ministered Social History Social History Additional Details Category Social Info Options Details Migrated Social History Migrated Social History Smoking Status : Never smoked , History of tobacco use : Vital Signs Height-cm 160.02 cm 07/21/2025 Weight-kg 68.04 kg 07/21/2025 Height 63.00 in 07/21/2025 Weight 150 lbs 07/21/2025 BMI 26.57 kg/m2 07/21/2025 Encounters Encounter Location Date Provider Diagnosis [facility] [place] [address] [id number] 08/26/2024 DIXIE [place] Fungal infection of nail B35.1 ; Pain in right toe(s) M79.674 ; Pain in left toe(s) M79.675 and Unspecified atherosclerosis of [place] arteries of extremities, bilateral legs I70.203 [facility] [place] [address] [id number] 01/06/2025 DIXIE [place] Fungal infection of nail B35.1 ; Pain in right toe(s) M79.674 ; Pain in left toe(s) M79.675 and Unspecified atherosclerosis of [place] arteries of extremities, bilateral legs I70.203 [facility] [place] [address] [id number] 03/10/2025 DIXIE [place] Fungal infection of nail B35.1 ; Pain in right toe(s) M79.674 ; Pain in left toe(s) M79.675 and Unspecified atherosclerosis of [place] arteries of extremities, bilateral legs I70.203 [facility] [address] [facility] [address] [place], [place] [id number] 05/19/2025 DIXIE STEWART Fungal infection of nail B35.1 ; Pain in right toe(s) M79.674 ; Pain in left toe(s) M79.675 and Unspecified atherosclerosis of [place] arteries of extremities, bilateral legs I70.203 [facility] [address] [facility] [address] [place], [place] [id number] 07/21/2025 DIXIE STEWART Fungal infection of nail B35.1 ; Pain in right toe(s) M79.674 ; Pain in left toe(s) M79.675 and Unspecified atherosclerosis of [place] arteries of extremities, bilateral legs I70.203 Assessments Encounter Date Diagnosis (ICD Code) Assessment Notes Treatment Notes Treatment Clinical Notes Section Notes 08/26/2024 Fungal infection of nail (ICD-10 - B35.1) 01/06/2025 Fungal infection of nail (ICD-10 - B35.1) 03/10/2025 Fungal infection of nail (ICD-10 - B35.1) 05/19/2025 Fungal infection of nail (ICD-10 - B35.1) 07/21/2025 Fungal infection of nail (ICD-10 - B35.1) 07/21/2025 Pain in right toe(s) (ICD-10 - M79.674) 05/19/2025 Pain in right toe(s) (ICD-10 - M79.674) 03/10/2025 Pain in right toe(s) (ICD-10 - M79.674) 01/06/2025 Pain in right toe(s) (ICD-10 - M79.674) 08/26/2024 Pain in right toe(s) (ICD-10 - M79.674) 08/26/2024 Pain in left toe(s) (ICD-10 - M79.675) 01/06/2025 Pain in left toe(s) (ICD-10 - M79.675) 03/10/2025 Pain in left toe(s) (ICD-10 - M79.675) 05/19/2025 Pain in left toe(s) (ICD-10 - M79.675) 07/21/2025 Pain in left toe(s) (ICD-10 - M79.675) 07/21/2025 Unspecified atherosclerosis of [place] arteries of extremities, bilateral legs (ICD-10 - I70.203) 05/19/2025 Unspecified atherosclerosis of [place] arteries of extremities, bilateral legs (ICD-10 - I70.203) 03/10/2025 Unspecified atherosclerosis of [place] arteries of extremities, bilateral legs (ICD-10 - I70.203) 01/06/2025 Unspecified atherosclerosis of [place] arteries of extremities, bilateral legs (ICD-10 - I70.203) 08/26/2024 Unspecified atherosclerosis of [place] arteries of extremities, bilateral legs (ICD-10 - [...] any subungual debris and necrotic tissue removed 05/19/2025 Other Nails 1-5 Bilateral were debrided extensively with nail nippers and emery board, reducing length and girth to pink healthy tissue with any subungual debris and necrotic tissue removed 07/21/2025 Other Nails 1-5 Bilateral were debrided extensively with nail nippers and emery board, reducing length and girth to pink healthy tissue with any subungual debris and necrotic tissue removed Plan Of Treatment Next Appt Details Provider Name:DIXIE GIBBS, 09/22/2025 10:20:00 AM, [address], [place], [place], [id number], Insurance Providers Payer Name Payer Address Payer Phone Subscriber Number Group Number Insured Name Patient Relationship to Insured Coverage Start Date Coverage End Date [employer] [address] [place] [phone] [id number] JAYSON LOPEZ Self - patient is the insured Medical (General) History Medical History History ICD Code Diabetic
--- OUTSIDE RECORDS SUMMARY | 2025-07-30 09:23 | XMS_ITS | Clinical Summary ---
Author Organization [facility] Address [address] [place] [address] Care Team Providers Care Job Captain Name Role Phone Ellen Rowley MD Primary Care Provider [phone] Kandi Fuentes MD Unavailable [phone] Javier Pham MD Unavailable [phone] Allergies Active Allergy Reactions Criticality Noted Date [...] minutes as needed for chest pain Active acetaminophen (TYLENOL) 325 mg tablet Take [...] by mouth 2 (two) times a day Active atorvastatin (LIPITOR) 10 mg tabletIndications: Complete heart block (HCC) Take 1 tablet (10 mg total) by mouth nightly 30 tablet 11/30/19 25 Active ondansetron ODT (ZOFRAN-ODT) 4 mg disintegrating tabletIndications: Achalasia of cardia Take 1 tablet (4 mg total) by mouth every 8 (eight) hours as needed for nausea or vomiting 20 tablet 11/30/[address] (PROTONIX) 40 mg EC tablet Take 1 tablet (40 mg total) by mouth nightly 04/01/20 25 Active levothyroxine (SYNTHROID) 137 mcg tablet Take 1 tablet (137 mcg total) by mouth inventory control supervisor before breakfast 03/07/20 25 Active ipratropium-albute roL (DUO-NEB) 0.5-2.5 mg/3 mL nebulizer solutionIndication s:Chronic Obstructive Pulmonary Disease with Bronchospasms Take 3 mL by nebulization 4 (four) times a day 180 mL 11 04/30/20 25 Active cholecalciferol (VITAMIN D-3) 2000 unit tablet 1 tablet (2,000 Units total) nightly Active cranberry 500 mg capsule Take 1 tablet by mouth 2 (two) times a day Active fish oil-dha-epa 1,200-144-216 mg capsule Take 1 capsule by mouth daily Active NON FORMULARY, FOR CLINIC ADMINISTERED MEDICATIONS ONLY, (not in database) Take 1 each by mouth daily Prevagen Active docusate sodium (COLACE) 100 mg capsuleIndications :constipation Take 1 capsule (100 mg total) by mouth nightly Active artificial tears (SYSTANE) 0.3 % gelIndications:Dry Eye Apply 2 drops to both eyes 3 (three) times a day Active clopidogreL (PLAVIX) 75 mg tablet Take 1 tablet (75 mg total) by mouth daily 30 tablet 4 07/18/20 25 026 Active metoprolol XL (TOPROL-XL) 25 mg extended release tablet Take 1 tablet (25 mg total) by mouth daily 30 tablet 1 07/20/20 25 Active aspirin 81 mg chewable tabletIndications: coronary artery disease Take 1 tablet (81 mg total) by mouth daily 30 tablet 1 07/20/20 25 Active metoprolol (LOPRESSOR) 25 mg immediate release tablet Take 1 tablet (25 mg total) by mouth 2 (two) times a day 60 tablet 11/10/19 25 025 Discontin ued(Stop Taking at Discharge ) Active Problems Problem Noted Date Diagnosed Date Atrial fibrillation and flutter 07/18/2025 Presence of Amulet left atrial appendage closure device 07/18/2025 Assessment & Plan (07/18/2025 12:21 PM HVAC SERVICE MANAGER): Patient is status post placement of left atrial appendage occlusion with a 20 mm Amplatzer Amulet device. - Continuous telemetry monitoring - Monitor for postop complications - Monitor right groin access site for bleeding and hematoma - Bedrest as per protocol then up with a assist as tolerated - Continue home metoprolol - Repeat TTE tomorrow to verify device placement Stage 3a chronic kidney disease 07/18/2025 Assessment & Plan (07/18/2025 12:21 PM HVAC SERVICE MANAGER): Creatinine level pending post procedure - Avoid nephrotoxic agents and renally dose medications as appropriate Atrial fib/flutter, transient 06/24/2025 Assessment & Plan (07/18/2025 12:21 PM HVAC SERVICE MANAGER): Patient is status post placement of left atrial appendage occlusion with a 20 mm Amplatzer Amulet device. - Continuous telemetry monitoring - Monitor for postop complications - Monitor right groin access site for bleeding and hematoma - Bedrest as per protocol then up with a assist as tolerated - Continue home metoprolol - Repeat TTE tomorrow to verify device placement Bronchiectasis, non-tuberculous 04/30/2025 Cavitary lesion of lung [...] very moment. The critical access team from [facility] was also attending to the [...] 11:01 AM CDT): I endorse admission to alf care. The patient is at risk of [...] care. Assessment & Plan (10/01/2024 9:52 AM HVAC SERVICE MANAGER): I endorse admission to alf care. The patient is at risk of [...] off. Assessment & Plan (10/01/2024 10:08 AM HVAC SERVICE MANAGER): I have viewed the injury of concern. [...] a.m. Assessment & Plan (10/01/2024 2:24 PM HVAC SERVICE MANAGER): Hemoglobin lower but overall stable, H&H 8.2/26.0. [...] appointment with thoracic surgery and GI at [facility]. He will retrieve the dates and times and bring those to our medical team. Assessment & Plan (10/03/2024 12:17 PM HVAC SERVICE MANAGER): Continue Jevity 1.5 tube feeding 60 mL/hour through the jejunostomy tube. Discussed with and dietitian. They are considering bolus feedings prior to discharging home. Assessment & Plan (10/01/2024 10:00 AM HVAC SERVICE MANAGER): Because of her esophageal achalasia and stenosis [...] 03/14/2024 Postoperative hypothyroidism 01/19/2024 Assessment & Plan (07/18/2025 10:24 AM HVAC SERVICE MANAGER): Status post thyroidectomy in 2021 - Prior TSH level elevated at 16. Recheck TSH - Continue home levothyroxine and adjust dose if needed Assessment & Plan (11/29/2024 2:00 PM CDT): Stable, continue levothyroxine Assessment & Plan (11/26/2024 4:27 PM CDT): Continue levothyroxine 137 mcg daily Assessment & Plan (11/24/2024 2:38 PM CDT): Continue levothyroxine 137 mcg daily. Assessment & Plan (10/03/2024 12:17 PM HVAC SERVICE MANAGER): Continue Synthroid 112 mcg daily. Assessment & Plan (10/01/2024 9:59 AM HVAC SERVICE MANAGER): This is a chronic problem. We will continue levothyroxine 112 mcg daily. Pulmonary nodule 06/09/2023 Primary hyperparathyroidism 12/14/2021 Hyperthyroidism 11/24/2021 Overview (11/24/2021): Added automatically from request for surgery [id number] Acute glaucoma of right eye 05/12/2021 Assessment & Plan (11/12/2024 11:06 AM CDT): This is chronic, currently stable. Continue the scripting of latanoprost 1 drop in both eyes once daily at bedtime and timolol 1 drop in both eyes daily. Assessment & Plan (10/03/2024 12:19 PM HVAC SERVICE MANAGER): We will continue latanoprost and timolol as scripted Assessment & Plan (10/01/2024 10:01 AM HVAC SERVICE MANAGER): We will continue scripting of latanoprost 0.005%, 1 drop in both eyes daily at bedtime and timolol 0.5% 1 drop in each eye daily. Bladder infection 05/12/2021 Degenerative joint disease of upper arm 05/12/20 21 Hyperlipemia 05/12/2021 Assessment & Plan (07/18/2025 12:21 PM HVAC SERVICE MANAGER): Blood pressure range 101/67 - 129/72 - BP within goal - Continue home metoprolol and atorvastatin Assessment & Plan (11/27/2024 4:30 PM CDT): - LDL 67 today which is at goal - continue atorvastatin 10 mg daily Assessment & Plan (11/12/2024 11:03 AM CDT): This is chronic, currently stable. Dietary will follow. Assessment & Plan (10/01/2024 9:59 AM HVAC SERVICE MANAGER): Dietary will evaluate and advise. Hemorrhoids with complication 05/12/2021 History of total left knee replacement (TKR) Left-sided abdominal pain of unknown etiology Obesity, Class I, BMI 30-34.9 05/12/2021 Recurrent urinary tract infection 05/12/2021 Abnormal barium swallow 11/20/2020 Overview (05/12/2021): Added automatically from request for surgery [id number] Achalasia of cardia 11/20/2020 Overview (05/12/2021): Added automatically from request for surgery [id number] Assessment & Plan (11/29/2024 2:05 PM CDT): [...] She will have esophageal motility studies at [facility] tomorrow. She will continue jejunostomy tube feedings as followed by dietary. Assessment & Plan (11/26/2024 4:29 PM CDT): She has an appointment at [facility] on Monday of this week for manometry [...] appeared to be extruding. The nurse transferred Jayson to the emergency room where she received [...] office Assessment & Plan (10/03/2024 12:18 PM HVAC SERVICE MANAGER): She now has a follow up appointment scheduled with the board hammer operator and thoracic surgeon. Assessment & Plan (10/01/2024 2:24 PM HVAC SERVICE MANAGER): Status post J-tube placement. Tolerating continuous tube [...] Colace. Assessment & Plan (10/01/2024 10:02 AM HVAC SERVICE MANAGER): She currently is unable eat. She is being fed by jejunostomy tube feedings. She will follow up with her thoracic surgeon in 4-6 weeks per the discharge summary instructions. This is Dr. Miller with [facility]. She is being considered for a Heller myotomy. The social service department is arranging the follow up appointment and the and patient had been so advised. Weight loss 11/20/2020 Overview (05/12/2021): Added automatically from request for surgery [id number] Graves disease 05/25/2020 Assessment & Plan (07/18/2025 10:24 AM HVAC SERVICE MANAGER): Status post thyroidectomy in 2021 - Prior TSH level elevated at 16. Recheck TSH - Continue home levothyroxine and adjust dose if needed Dysphagia 04/17/2020 Overview (05/12/2021): Added automatically from request for surgery [id number] Assessment & Plan (11/24/2024 2:39 PM CDT): [...] intervention. Assessment & Plan (10/01/2024 10:00 AM HVAC SERVICE MANAGER): Follow up labs are ordered. Essential hypertension 05/29/2013 Assessment & Plan (07/18/2025 12:21 PM HVAC SERVICE MANAGER): Blood pressure range 101/67 - 129/72 - BP within goal - Continue home metoprolol and atorvastatin Assessment & Plan (11/29/2024 1:54 PM CDT): [...] dizziness/lightheadedness). Assessment & Plan (10/02/2024 8:45 AM HVAC SERVICE MANAGER): BP remains lower, but pt is asymptomatic. Encouraged continue clear liquid intake, monitor for orthostasis Assessment & Plan (10/01/2024 9:59 AM HVAC SERVICE MANAGER): We will monitor serial vital signs for trending. Our goal will be us the systolic blood pressures of 150 and a diastolic blood pressure below 90. Resolved Problems Problem Noted Date Diagnosed Date Resolved Date Pressure injury 11/14/2024 11/14/2024 Anemia 10/22/2024 11/12/2024 Well child examination 05/12/202110/01 Encounters Date Type Department Care Team Description 07/21/2025 Telephone [facility] Cardiology [address] [facility] [address] [place] [address] Kandi Fuentes MD Med Management 07/18/2025 8:37 AM HVAC SERVICE MANAGER Anesthesia Event [facility] OR [address] [place] [address] Miladis Parr MD Taylor-White, Carlotta A., NP 07/18/2025 8:30 AM HVAC SERVICE MANAGER - 07/18/2025 9:49 AM HVAC SERVICE MANAGER Surgery [facility] OR [facility] [place] [address] Kandi Fuentes MD PERC NGOC CLOSE W/IMPLANT [id number] 07/18/2025 6:15 AM HVAC SERVICE MANAGER - 07/19/2025 2:44 PM HVAC SERVICE MANAGER Hospital Encounter [facility] [address] [address] Kandi Fuentes MD Caceres, Christian Guillermo, MD Atrial fib/flutter, transient (HCC) Discharge Disposition: Discharge to home or self care 07/18/2025 Telephone [facility] Cardiology [address] [place] [address] [address] Kandi Fuentes MD Scheduling Testing/Treatment (BENEDICT) 07/11/2025 1:28 PM HVAC SERVICE MANAGER - 07/11/2025 4:02 PM HVAC SERVICE MANAGER Emergency [facility] Emergency Department [address] [place] [phone] Miguel Whitfield, Sensation of foreign body in esophagus (Primary Dx) Discharge Disposition: Discharge to home or self care 07/07/2025 Telephone [facility] Cardiology [address] [place] [phone] Kandi Fuentes MD 07/02/2025 Documentation [facility] Cardiology [address] [place] [phone] Mode Leonard RN 06/30/2025 11:59 PM HVAC SERVICE MANAGER Anesthesia Event [facility] Cardiac Emergency Physician [address] [place] [address] Merle Timmons NP 06/30/2025 9:31 AM HVAC SERVICE MANAGER - 06/30/2025 11:59 PM HVAC SERVICE MANAGER Hospital Encounter [facility] ED Diagnostic Imaging [address] [place] [phone] Discharge Disposition: Discharge to home or self care 06/30/2025 9:00 AM HVAC SERVICE MANAGER Pre-Admission Testing [facility] PreAdmission Testing [address] [place] [address] Atrial fib/flutter, transient (HCC) 06/30/2025 Telephone [facility] Cardiology [address] [place] [phone] Kandi Fuentes MD 06/27/2025 Orders Only [facility] PreAdmission Testing [address] [place] [address] Roselia Marsh RN 06/16/2025 3:27 PM HVAC SERVICE MANAGER - 06/16/2025 11:59 PM HVAC SERVICE MANAGER Hospital Encounter [facility] [address] [place] [address] Atrial fib/flutter, transient (HCC) Discharge Disposition: Discharge to home or self care 06/09/2025 Orders Only [facility] Cardiology [address] [facility] [address] [place] [address] Kandi Fuentes MD Atrial fib/flutter, transient (HCC) (Primary Dx) 05/20/2025 11:45 AM CDT Office Visit [facility] Pulmonology [address] [facility] [address] [place] [address] Javier Pham MD 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); Abnormal CT of the chest; Cough with hemoptysis 05/15/2025 9:45 AM CDT Therapy [facility] Medical Office Bl 1 OP Physical Therapy [address] [place] [address] Anita, Rajesh, PT Primary osteoarthritis of both knees (Primary Dx); Chronic pain of both knees 05/15/2025 9:45 AM CDT Therapy [facility] Medical Office [facility] 1 OP Physical Therapy [address] [place] [phone] Range, Danielle, CASTER OPERATOR Primary osteoarthritis of both knees (Primary Dx); Chronic pain of both knees; Unilateral primary osteoarthritis, left knee; Pain in left ankle and joints of left foot 05/14/2025 7:01 AM CDT - 05/14/2025 11:59 PM CDT Hospital Encounter [facility] Cardiac Catheterization Lab [address] [place] [address] Kandi Fuentes MD Atrial fibrillation, unspecified type (HCC); Nonrheumatic mitral valve regurgitation Discharge Disposition: Discharge to home or self care 05/14/2025 Cardiology Conference [facility] Non-invasive Cardiac Diagnostic Testing [address] [place] [address] Nasir Esquivel, RN 05/12/2025 12:45 PM CDT Therapy [facility] Medical Office Bldg 1 OP Physical Therapy [address] [place] [address] [place] [phone] Edson Hammond, CASTER OPERATOR Primary osteoarthritis of both knees (Primary Dx); Chronic pain of both knees 05/07/2025 12:45 PM CDT Therapy [facility] [place] [facility] 1 OP Physical Therapy [address] [place] [address] [place] [address] Edson Hammond, CASTER OPERATOR Primary osteoarthritis of both knees (Primary Dx); Chronic pain of both knees 05/07/2025 Telephone [facility] Pulmonology [address] [facility] [address] [place] [phone] Javier Pham MD 05/06/2025 Telephone [facility] Pre Anesthesia Testing [address] [place] [address] Maye Emmanuel RN 05/06/2025 Orders Only [facility] [address] [place] [phone] Kandi Fuentes MD Atrial fibrillation, unspecified type (HCC) (Primary Dx); Mitral valve insufficiency, unspecified etiology 05/06/2025 Orders Only [facility] Non-invasive Cardiac Diagnostic Testing [address] [place] [address] Kandi Fuentes MD Atrial fibrillation, unspecified type (HCC) (Primary Dx); Nonrheumatic mitral valve regurgitation 2025 12:45 PM CDT Therapy [facility] Medical Office [facility] 1 OP Physical Therapy [address] [place] [address] [place] [address] Edson Hammond, CASTER OPERATOR Unilateral primary osteoarthritis, left knee (Primary Dx); Primary osteoarthritis of both knees; Chronic pain of both knees 2025 8:00 AM CDT Ancillary Procedure [facility] Cardiology [address] [place] [address] Sinus node dysfunction (HCC); Tachy-lidia syndrome; Complete heart block (HCC); Pacemaker 05/02/2025 11:15 AM CDT Office Visit [facility] Cardiology [address] [facility] [address] [place] [address] Kandi Fuentes MD Paroxysmal atrial fibrillation (HCC) (Primary Dx) 04/27/2025 3:16 PM CDT - 04/30/2025 1:44 PM CDT Hospital Encounter [facility] 4 Med Surg [facility] [place] [address] Nasir Moncada DO Singh, Anjanya Devendra, MD [...] OF UTERUS ESOPHAGEAL DILATION several times THYROIDECTOMY 07/31/2021 - 07/30/2022 with left upper PTH adenoma resection 12/14/2021 COLONOSCOPY years ago PORT PLACEMENT CHEST >5 YEARS 09/16/2024 N/A CARDIAC ELECTROPHYSIOLOGY PROCEDURE 10/30/2024 N/A Procedure: INSERT TEMPORARY PACEMAKER (PPM) SINGLE LEAD [id number]; Surgeon: Feliciano Peguero MD; Location: [facility]; Service: Cardiovascular; Laterality: N/A; CARDIAC ELECTROPHYSIOLOGY PROCEDURE 10/31/2024 Left Procedure: IMPLANT DUAL CHAMBER PPM SYSTEM W/ DUAL ELECTRODES (GEN AND LEADS, NEW OR REPLACE) [id number]; Surgeon: Feliciano Peguero MD; Location: [facility]; Service: Cardiovascular; Laterality: Left; Medical devices from this surgery are in the Medical Devices section. ENTERIC TUBE INJECTION 11/26/2024 N/A GASTROSTOMY TUBE PLACEMENT 09/24/2024 GASTROSTOMY TUBE REVISION 01/15/2025 MYOTOMY 01/15/2025 IMPLANTABLE CARDIAC DEVICE 07/18/2025 Bilateral Procedure: PERC NGOC CLOSE W/IMPLANT [id number]; Surgeon: Kandi Fuentes MD; Location: [facility] OPER[facility]; Service: Cardiovascular; Laterality: Bilateral; Medical devices from this surgery are in the Medical Devices section. 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 Type 2 diabetes mellitus Glaucoma Osteopenia Lung nodules History of COVID-19 06/2020; not hospitalized Hiatal hernia Esophageal achalasia history bot ox injection; followed by GI Arthritis Anemia CKD (chronic kidney disease) , stage III (HCC) stage 3b; per EMR Graves disease thyroidectomy 20 GERD (gastroesophageal reflux disease) Hypothyroidism Mycobacterium avium complex Pacemaker Patient has [employer] dual chamber pacemaker. PONV (postoperative nausea and vomiting) Urinary tract infection History of transfusion Dysphagia currently on a m echanical soft with thin liquids diet. Family History Relation Name Status Comments Father [...] 10/31/2024 How often do you attend chur VocalizeLocal or alevism services? Never 10/31/2024 Do you belong to [...] in the past 12 m [facility], were you homeless or living in a prison (including now)? No 11/05/2024 Social Connection and [...] attend chur ch or alevism services? Never 04/28/2025 Do you belong to [...] you have a drink containing alcohol? Never 07/18/2025 Q2: How many drinks containi ng alcohol do you have on a typical day when you are drinking? Patient does not drink Q3: How often do you have si x or more drinks on one occasion? Never 07/18/2025 Overall Financial Resource Strain (CARDIA) Answe r [...] in the past 12 m [facility], were you homeless or living in a prison (including now)? No 04/28/[address] [facility] Utilities Answer Date Recorded In the past 12 months has th e electric, gas, oil, or water company threatened to shut off services in your home? No 04/28/2025 Personal Safety Answer Date Recorded Have you ever been in or are you currently in a harmful physical or emotional relationship or is someone making you feel afraid or unsafe? Denies 07/18/2025 Comments No Sex and Gender Information Value Date Recorded Sex Assigned at Not on file Legal Sex Female 5:32 PM HVAC SERVICE MANAGER Gender Identity Not on file Sexual Orientation Not on file Last Filed Vital Signs Vital Sign Reading Time Taken Comments Blood Pressure 98/57 07/19/2025 12:00 PM HVAC SERVICE MANAGER Pulse 71 07/19/2025 12:00 PM HVAC SERVICE MANAGER Temperature 36.9 C (98.4 F) 07/19/2025 12:00 PM HVAC SERVICE MANAGER Respiratory Rate 16 07/19/2025 12:00 PM HVAC SERVICE MANAGER Oxygen Saturation 96% 07/19/2025 12:00 PM HVAC SERVICE MANAGER Inhaled Oxygen Concentration - - Weight 66.8 kg (147 lb 4.3 oz) 07/11/2025 1:10 P M HVAC SERVICE MANAGER Height 160 cm (5' 3) 07/11/2025 1:10 PM HVAC SERVICE MANAGER Body Mass Index 26.09 07/11/2025 1:10 PM HVAC SERVICE MANAGER Plan of Treatment Health Maintenance Due Date [...] Additional history exists Lipid Panel 12/09/2025 12/09/2024, 04/3 , 02/15/2024, Additional history exists Osteoporosis Screening-Bone Density Scan 07/11/2026 07/11/2024, 05/19/2022, 09/02/2020, Additional history exists Fall Risk Assessment 07/19/2026 07/19/2025 eGFR 07/19/2026 07/19/2025, 06/30, 07/11/2025, Additional history exists Zoster Vaccine Completed 05/20/2024, 02/27/2024 Breast Cancer Screening-Mammogram Discontinued 06/28/2024, 06/28/2024, 06/27/2023, Additional history exists Medical Devices Implanted Type Area Cutter And Paster Press Clippings Device Identifier Shelf Expiration Date Model / Serial / Lot Total Knee Replacement Right: Knee [employer] Barno Active Fixation Steroid Eluting Is 1 Connector Latex Free Sterile Right Atrial Right Atrial Ingevity Plus 59cm 7842 - [id number] Implanted:Qty: 1 on 10/31/2024 by Feliciano Peguero MD at [facility] [employer] Baron [id number] / / [employer] Baron Lead 7841 Endocardial Pacing Mr Is-1 Bipolar Connection 7841 - [id number] - [id number] Implanted:Qty: 1 on 10/31/2024 by Feliciano Peguero MD at [facility] [employer] Baron [id number] 09/09/2026 7841 / [id number] / [employer] C.[employer].M. Accolade Latitude Nxt Pacesafe Easyview 4.45x5.02cm 2 Chamber Is1 L311 - [id number] - [id number] Implanted:Qty: 1 on 10/31/2024 by Feliciano Peguero MD at [facility] [employer] C.R.M. [id number] 06/12/2026 L311 / [id number] / Amplatzer Implanted:Qty: 1 on 07/18/2025 by Ryan Maddox MD at [facility] Tonx [id number] / / Procedures Procedure Name Priority Date/Time Associated Diagnosis Comments POCT GLUCOSE DEVICE Routine 07/19/2025 12:01 PM HVAC SERVICE MANAGER TRANSTHORACIC ECHO (TTE) LIMITED/FOLLOW UP WO DOPPLER/CF WO CONTRAST Routine 07/19/2025 11:15 AM HVAC SERVICE MANAGER ECG 12-LEAD Routine 07/19/2025 9:44 AM HVAC SERVICE MANAGER POCT GLUCOSE DEVICE Routine 07/19/2025 8 :04 AM HVAC SERVICE MANAGER EGFR Routine 07/19/2025 3:26 AM HVAC SERVICE MANAGER DIFFERENTIAL AUTO Routine 07/19/2025 3:2 6 AM HVAC SERVICE MANAGER CBC WITH AUTO DIFFERENTIAL Routine 07/19/2025 3:26 AM HVAC SERVICE MANAGER MAGNESIUM Routine 07/19/2025 3:26 AM HVAC SERVICE MANAGER BASIC METABOLIC PANEL Routine 07/19/2025 3:26 AM HVAC SERVICE MANAGER POCT GLUCOSE DEVICE Routine 07/19/2025 2 :42 AM HVAC SERVICE MANAGER POCT GLUCOSE DEVICE Routine 07/18/2025 8 :08 PM HVAC SERVICE MANAGER POCT GLUCOSE DEVICE Routine 07/18/2025 4 :46 PM HVAC SERVICE MANAGER EGFR STAT 07/18/2025 12:35 PM HVAC SERVICE MANAGER TSH STAT 07/18/2025 12:35 PM HVAC SERVICE MANAGER MAGNESIUM STAT 07/18/2025 12:35 PM HVAC SERVICE MANAGER BASIC METABOLIC PANEL STAT 07/18/2025 12:35 PM HVAC SERVICE MANAGER CBC WITHOUT DIFFERENTIAL STAT 07/18/2025 12:35 PM HVAC SERVICE MANAGER POCT GLUCOSE DEVICE Routine 07/18/2025 11:19 AM HVAC SERVICE MANAGER APTT Routine 07/18/2025 10:07 AM HVAC SERVICE MANAGER PROTIME-INR Routine 07/18/2025 10:07 AM HVAC SERVICE MANAGER ECG 12-LEAD STAT 07/18/2025 9:54 AM HVAC SERVICE MANAGER PERC NGOC CLOSURE W/IMPLANT (WATCHMAN) [id number] Routine 07/18/2025 9:42 AM HVAC SERVICE MANAGER Atrial fib/flutter, transient (HCC) BENEDICT GUIDANCE DURING CARDIAC STRUCTURAL INTVN [id number] Routine 07/18/2025 9:26 AM HVAC SERVICE MANAGER POCT ACTIVATED CLOTTING TIME, LOW RANGE Routine 07/18/2025 9:10 AM HVAC SERVICE MANAGER MT AN PROCEDURE PLACEHOLDER Routine 07/18/2025 8:58 AM HVAC SERVICE MANAGER MT AN ELECTIVE ENDOTRACHEAL AIRWAY Routine 07/18/2025 8:58 AM HVAC SERVICE MANAGER TYPE AND SCREEN STAT 07/18/2025 7:24 AM HVAC SERVICE MANAGER ECG 12-LEAD Routine 07/11/2025 2:33 PM HVAC SERVICE MANAGER TROPONIN T HIGH-SENSITIVITY SERIES (BASELINE, 2HR, 4HR, 6HR) STAT 07/11/2025 2:27 PM HVAC SERVICE MANAGER EGFR STAT 07/11/2025 2:27 PM HVAC SERVICE MANAGER DIFFERENTIAL AUTO STAT 07/11/2025 2:2 7 PM HVAC SERVICE MANAGER COMPREHENSIVE METABOLIC PANEL STAT 07/11/2025 2:27 PM HVAC SERVICE MANAGER CBC WITH AUTO DIFFERENTIAL STAT 07/11/2025 2:27 PM HVAC SERVICE MANAGER XR CHEST PA LATERAL 2 VIEWS Schedule Routine, Read Routine (OP Routine) 06/30/2025 9:44 AM HVAC SERVICE MANAGER Atrial fib/flutter, transient (HCC) EGFR Routine 06/30/2025 9:30 AM HVAC SERVICE MANAGER Atrial fib/flutter, transient (HCC) DIFFERENTIAL AUTO Routine 06/30/2025 9:3 0 AM HVAC SERVICE MANAGER Atrial fib/flutter, transient (HCC) COMPREHENSIVE METABOLIC PANEL Routine 06/30/2025 9:30 AM HVAC SERVICE MANAGER Atrial fib/flutter, transient (HCC) CBC WITH AUTO DIFFERENTIAL Routine 06/30/2025 9:30 AM HVAC SERVICE MANAGER Atrial fib/flutter, transient (HCC) APTT Routine 06/30/2025 9:30 AM HVAC SERVICE MANAGER Atrial fib/flutter, transient (HCC) PROTIME-INR Routine 06/30/2025 9:30 AM HVAC SERVICE MANAGER Atrial fib/flutter, transient (HCC) TYPE AND SCREEN 14 DAY Routine 06/30/2025 9:30 AM HVAC SERVICE MANAGER Atrial fib/flutter, transient (HCC) ECG 12-LEAD Routine 06/30/2025 9:24 AM HVAC SERVICE MANAGER Atrial fib/flutter, transient (HCC) CT HEART MORPHOLOGY W CONTRAST Schedule Routine, Read Routine (OP Routine) 06/16/2025 4:04 PM HVAC SERVICE MANAGER Atrial fib/flutter, transient (HCC) TRANSESOPHAGEAL ECHO (BENEDICT) W DOPPLER/CF WO CONTRAST [...] GLUCOSE DEVICE Routine 04/29/2025 12:35 AM CDT HEMOGLOBIN A1C Routine 04/27/2025 3:04 PM CDT POCT LIPID PANEL Routine 11/27/2024 9:38 AM CDT Dyslipidemia, goal LDL below 100 DEXA AXIAL SKELETON BONE DENSITY 1 OR MORE SITES Routine 06/08/2015 2:48 PM HVAC SERVICE MANAGER from Last 3 Months or Most Recently Relevant to Health Maintenance Results * POCT glucose (07/19/2025 12:01 PM HVAC SERVICE MANAGER) Glucose, POC 96 70 - 199 mg/dL Glucose comment 1 RN/MD Notified LISA Blood 07/19/2025 12:0 1 PM HVAC SERVICE MANAGER 07/19/2025 12:01 PM HVAC SERVICE MANAGER us Parker Orellana MD LAB POCT ORDERABL ES - DEVICE Final Result LISA [id number] [facility] Department [place] [address] * TRANSTHORACIC ECHO (TTE) LIMITED/FOLLOW UP WO DOPPLER/CF WO CONTRAST (07/19/2025 11:15 AM HVAC SERVICE MANAGER) Estimated EF 60 % CONS SCIMAGE Anatomical Region Laterality Modality Ultrasound 07/19/2025 11:0 4 AM HVAC SERVICE MANAGER Narrative 07/19/2025 11:42 AM HVAC SERVICE MANAGER Transthoracic Echocardiographic Report Patient Name: JAYSON NAJERA E : 1950 (75y 2m) Sex: F Study Date: 07/19/2025 11:04:54 AM Ht(Inch): Wt(Lb): BSA: Risk Assessment Analyst: Lexii Porter RDCS Location: [id number] Order Provider: KANDI FUENTES Heart Rate: 71 BMI: BP: 114 / 78 Ref Provider: KANDI FUENTES PROCEDURES: Echocardiographic Report: Echocardiography, transthoracic, 2D, includes M-mode recording,color and spectral doppler when performed, limited study. INDICATIONS: Atrial fibrillation. FINDINGS: Left Ventricle: Normal left ventricular cavity size. Normal Left ventricular wall thickness. Normal left ventricular systolic function. The Ejection Fraction is visually estimated to be 60 %. Right Ventricle: Normal right ventricular size. Normal right ventricular systolic function. Wire noted in the right heart. Left Atrium: Moderately dilated left atrium. Right Atrium: The right atrium is normal in size. Atrial Septum: No shunt by color Doppler. Mitral Valve: Moderate mitral annular calcification. Aortic Valve: Trileaflet aortic valve. No aortic regurgitation seen. No aortic valve stenosis. Tricuspid Valve: The tricuspid valve demonstrates normal leaflet structure. No tricuspid regurgitation seen. Normal estimated pulmonary artery systolic pressure. No tricuspid valve stenosis. Pulmonic Valve: No evidence of pulmonic regurgitation. Pericardium: Normal pericardium without evidence of pericardial effusion. No pericardial effusion noted. Aorta: Normal aortic root. The aortic Sinus is normal in size. IVC: IVC is normal in size. CONCLUSIONS: 1. Normal left ventricular systolic function. The Ejection Fraction is visually estimated to be 60 %. 2. Normal right ventricular systolic function. Wire noted in the right heart. 3. Moderately dilated left atrium. 4. Moderate mitral annular calcification. 5. Normal pericardium without evidence of pericardial effusion. No pericardial effusion noted. 6. Limited 2D only echo study. MEASUREMENTS: 2D/MM Value Range EDV Mod BP 33.70 ml [ 46.00 - 106.00 ] LV EDV Index ml/m2 ESV Mod BP 22.90 ml [ 14.00 - 42.00 ] Visually Estimated EF 60 % - ATTESTATION: I have reviewed and interpreted the pertinent images and measurements of this study. I attest to the conclusions in the final report that is provided above. DISCLAIMER: The study images and the final report will be retained in the patient chart by the Echo Laboratory for the legally required time period. This chart constitutes the legal record of any testing performed. Electronically Signed By: Ryan Maddox MD 07/19/2025 11:41:17 AM HVAC SERVICE MANAGER Procedure Note Ryan Maddox MD - 07/19/2025 Transthoracic Echocardiographic Report Patient Name: JAYSON NAJERA E : 1950 (75y 2m) Sex: F Study Date: 07/19/2025 11:04:54 AM Ht(Inch): Wt(Lb): BSA: Risk Assessment Analyst: Lexii Porter [facility] Location: [id number] Order Provider:KANDI BE Heart Rate: 71 BMI: BP: 114 / 78 Ref Provider: KANDI FUENTES PROCEDURES: Echocardiographic Report: Echocardiography, transthoracic, 2D, includesM-mode recording,color and spectral doppler when performed, limited study. INDICATIONS: Atrial fibrillation. FINDINGS: Left Ventricle: Normal left ventricular cavity size. Normal Leftventricular wall thickness. Normal left ventricular systolic function. The EjectionFraction is visually estimated to be 60 %. Right Ventricle: Normal right ventricular size. Normal right ventricularsystolic function. Wire noted in the right heart. Left Atrium: Moderately dilated left atrium. Right Atrium: The right atrium is normal in size. Atrial Septum: No shunt by color Doppler. Mitral Valve: Moderate mitral annular calcification. Aortic Valve: Trileaflet aortic valve. No aortic regurgitation seen. Noaortic valve stenosis. Tricuspid Valve: The tricuspid valve demonstrates normal leafletstructure. No tricuspid regurgitation seen. Normal estimated pulmonary artery systolic pressure.No tricuspid valve stenosis. Pulmonic Valve: No evidence of pulmonic regurgitation. Pericardium: Normal pericardium without evidence of pericardial effusion.No pericardial effusion noted. Aorta: Normal aortic root. The aortic Sinus is normal in size. IVC: IVC is normal in size. CONCLUSIONS: 1. Normal left ventricular systolic function. The Ejection Fraction isvisually estimated to be 60 %. 2. Normal right ventricular systolic function. Wire noted in the rightheart. 3. Moderately dilated left atrium. 4. Moderate mitral annular calcification. 5. Normal pericardium without evidence of pericardial effusion. Nopericardial effusion noted. 6. Limited 2D only echo study. MEASUREMENTS: 2D/MM Value Range EDV Mod BP 33.70 ml [ 46.00 - 106.00 ] LV EDV Index ml/m2 ESV Mod BP 22.90 ml [ 14.00 - 42.00 ] Visually Estimated EF 60 % - ATTESTATION: I have reviewed and interpreted the pertinent images and measurements ofthis study. I attest to the conclusions in the final report that is provided above. DISCLAIMER: The study images and the final report will be retained in the patientchart by the Echo Laboratory for the legally required time period. This chart constitutesthe legal record of any testing performed. Electronically Signed By: Ryan Maddox MD 07/19/2025 11:41:17 AM HVAC SERVICE MANAGER us Kandi Fuentes MD CV ECHO PROCEDURES Final Re sult * ECG 12 lead (07/19/2025 9:44 AM HVAC SERVICE MANAGER) Ventricular Rate EKG/Min 106 BPM [facility] Atrial Rate 197 BPM [facility] QRS-Interval (MSEC) 132 ms [facility] QT-Interval (MSEC) 378 ms [facility] QTc 502 ms [facility] R [place] 114 degrees [facility] T [place] -57 degrees [facility] Diagnosis Ventricular- paced rhythm Abnormal ECG When compared with ECG of 18-JUL-2025 09:54, Ventricular paced rhythm Confirmed by SULTAN GAMBOA M.D. ([id number]) on 07/19/2025 6:26:33 PM [facility] 07/19/2025 9:44 AM HVAC SERVICE MANAGER 07/19/2025 6:26 PM HVAC SERVICE MANAGER us Kandi Fuentes MD ECG ORDERABLES Final Resul t [facility] * POCT glucose (07/19/2025 8:04 AM HVAC SERVICE MANAGER) Glucose, POC 78 70 - 199 mg/dL Glucose comment 1 RN/MD Notified LISA Blood 07/19/2025 8:04 AM HVAC SERVICE MANAGER 07/19/2025 8:04 AM HVAC SERVICE MANAGER us Parker Orellana MD LAB POCT ORDERABL ES - DEVICE Final Result Performing Organization Address City/[facility]/ZIP Co de Phone Number [address] Department [place] [address] * (ABNORMAL) eGFR (07/19/2025 3:26 AM HVAC SERVICE MANAGER) eGFR 51(L) >=60 mL/min/1. 73 m2 Comment: Interpretive Data [...] Current interpretive data was last reviewed 2021. Blood 07/19/2025 3:26 AM HVAC SERVICE MANAGER 07/19/2025 3:41 AM HVAC SERVICE MANAGER us Kandi Fuentes MD LAB BLOOD ORDERABLES Final Result [facility] [address] [facility] Department [place] [address] * Differential, auto (07/19/2025 3:26 AM HVAC SERVICE MANAGER) Pathologist [facility] Neutrophil abs 3.69 1.50 - 6.50 K/cumm Imm gran abs 0.01 0.00 - 0.10 K/cumm [facility] Lymphocyte abs 1.58 0.80 - 3.30 K/cumm [facility] Monocyte abs 0.56 0.20 - 0.80 K/cumm [facility] Eosinophil abs 0.03 0.00 - 0.50 K/cumm [facility] Basophil abs 0.02 0.00 - 0.10 K/cumm [facility] Neutrophil pct 62.7 % [facility] Comment: Interpretive Data Percent cell count reference ranges are not reported, since discordance with absolute values may lead to misinterpretation of CBC data. Current Interpretive Data was last revised on 2017. Imm gran pct 0.2 % [facility] Comment: Interpretive Data Percent cell count reference ranges are not reported, since discordance with absolute values may lead to misinterpretation of CBC data. Current Interpretive Data was last revised on 2017. Lymphocyte pct 26.8 % [facility] Comment: Interpretive Data Percent cell count reference ranges are not reported, since discordance with absolute values may lead to misinterpretation of CBC data. Current Interpretive Data was last revised on 2017. Monocyte pct 9.5 % [facility] Comment: Interpretive Data Percent cell count reference ranges are not reported, since discordance with absolute values may lead to misinterpretation of CBC data. Current Interpretive Data was last revised on 2017. Eosinophil pct 0.5 % [facility] Comment: Interpretive Data Percent cell count reference ranges are not reported, since discordance with absolute values may lead to misinterpretation of CBC data. Current Interpretive Data was last revised on 2017. Basophil pct 0.3 % [facility] Comment: Interpretive Data Percent cell count reference ranges are not reported, since discordance with absolute values may lead to misinterpretation of CBC data. Current Interpretive Data was last revised on 2017. Blood 07/19/2025 3:26 AM HVAC SERVICE MANAGER 07/19/2025 3:41 AM HVAC SERVICE MANAGER Kandi Fuentes MD LAB BLOOD ORDERABLES Final Result Performing Organization Address City/[facility] Co de Phone Number [facility] [address] [facility] Department [place] [address] * (ABNORMAL) CBC with auto differential (07/19/2025 3:26 AM HVAC SERVICE MANAGER) WBC 5.89 3.80 - 9.90 K/cumm Hgb 9.4(L) 11.9 - 15.5 g/dL [facility] Hct 27.9(L) 35.6 - 45.5 % [facility] Plt 161 150 - 400 K/cumm [facility] MPV 10.2 9.1 - 12.3 fL [facility] RBC 2.85(L) 3.90 - 5.20 M/cumm [facility] MCV 97.9(H) 81.3 - 96.4 fL [facility] MCH 33.0 27.1 - 33.3 pg [facility] MCHC 33.7 32.3 - 35.7 g/dL [facility] RDW CV 12.4 11.1 - 14.9 % [facility] RDW SD 44.3 35.7 - 48.1 fL [facility] NRBC abs 0.00 0.00 - 0.01 K/cumm [facility] Blood 07/19/2025 3:26 AM HVAC SERVICE MANAGER 07/19/2025 3:41 AM HVAC SERVICE MANAGER Kandi Fuentes MD LAB BLOOD ORDERABLES Final Result Performing Organization Address City/[facility] Co de Phone Number [address] [address] * Magnesium (07/19/2025 3:26 AM HVAC SERVICE MANAGER) [facility] Magnesium 2.1 1.4 - 2.5 mg/dL Blood 07/19/2025 3:26 AM HVAC SERVICE MANAGER 07/19/2025 3:41 AM HVAC SERVICE MANAGER Kandi Fuentes MD LAB BLOOD ORDERABLES Final Result Performing Organization Address [facility] de Phone Number [address] [address] * (ABNORMAL) Basic metabolic panel (07/19/2025 3:26 AM HVAC SERVICE MANAGER) [facility] Sodium 137 135 - 145 mmol/L Potassium, pl 4.5 3.3 - 4.9 mmol/L [facility] Chloride 105 97 - 110 mmol/L [facility] CO2 26 22 - 32 mmol/L [facility] Anion gap 6 2 - 15 mmol/L [facility] BUN 35(H) 6 - 25 mg/dL [facility] Creatinine 1.11(H) 0.60 - 1.10 mg/dL [facility] Glucose 94 70 - 199 mg/dL [facility] Comment: Interpretive Data Fasting glucose >/= 126 [...] Current interpretive data was last revised 2022. Calcium 8.7 8.5 - 10.3 mg/dL [facility] Blood 07/19/2025 3:26 AM HVAC SERVICE MANAGER 07/19/2025 3:41 AM HVAC SERVICE MANAGER Kandi Fuentes MD LAB BLOOD ORDERABLES Final Result Performing Organization Address [facility] Co de Phone Number [id number] [place] [address] * POCT glucose (07/19/2025 2:42 AM HVAC SERVICE MANAGER) Glucose, POC 86 70 - 199 mg/dL Glucose comment 1 RN/MD Notified [facility] Glucose comment 2 Follow Protocol [facility] Blood 07/19/2025 2:42 AM HVAC SERVICE MANAGER 07/19/2025 2:42 AM HVAC SERVICE MANAGER Parker Orellana MD LAB POCT ORDERABL ES - DEVICE Final Result Performing Organization Address [facility] de Phone Number [address] [place] [address] * POCT glucose (07/18/2025 8:08 PM HVAC SERVICE MANAGER) Glucose, POC 129 70 - 199 mg/dL Glucose comment 1 RN/MD Notified [facility] Glucose comment 2 Follow [address] [facility] Blood 07/18/2025 8:08 PM HVAC SERVICE MANAGER 07/18/2025 8:08 PM HVAC SERVICE MANAGER Parker Orellana MD LAB POCT ORDERABL ES - DEVICE Final Result Performing Organization Address [facility] Co de Phone Number [id number] [place] [address] * POCT glucose (07/18/2025 4:46 PM HVAC SERVICE MANAGER) Glucose, POC 144 70 - 199 mg/dL Glucose comment 1 RN/MD Notified [facility] Blood 07/18/2025 4:46 PM HVAC SERVICE MANAGER 07/18/2025 4:46 PM HVAC SERVICE MANAGER Parker Orellana MD LAB POCT ORDERABL ES - DEVICE Final Result Performing Organization Address [facility]/ZIP Co de Phone Number [place] [address] [facility] Department [place] [address] * eGFR (07/18/2025 12:35 PM HVAC SERVICE MANAGER) [facility] eGFR 63 >=60 mL/min/1. 73 m2 Comment: Interpretive Data [...] Current interpretive data was last reviewed 2021. Blood 07/18/2025 12:3 5 PM HVAC SERVICE MANAGER 07/18/2025 12:45 PM HVAC SERVICE MANAGER Carlie Leon NP LAB BLOOD ORDERABLES Final Result [facility] [address] Department [place] [address] * (ABNORMAL) CBC without differential (07/18/2025 12:35 PM HVAC SERVICE MANAGER) [facility] WBC 6.13 3.80 - 9.90 K/cumm Hgb 10.3(L) 11.9 - 15.5 g/dL [facility] Hct 30.9(L) 35.6 - 45.5 % [facility] Plt 177 150 - 400 K/cumm [facility] MPV 10.2 9.1 - 12.3 fL [facility] RBC 3.13(L) 3.90 - 5.20 M/cumm [facility] MCV 98.7(H) 81.3 - 96.4 fL [facility] MCH 32.9 27.1 - 33.3 pg [facility] MCHC 33.3 32.3 - 35.7 g/dL [facility] RDW CV 12.4 11.1 - 14.9 % [facility] RDW SD 44.4 35.7 - 48.1 fL [facility] NRBC abs 0.00 0.00 - 0.01 K/cumm [facility] Blood 07/18/2025 12:3 5 PM HVAC SERVICE MANAGER 07/18/2025 12:45 PM HVAC SERVICE MANAGER Carlie Leon INSTRUCTIONAL WRITER LAB BLOOD ORDERABLES Final Result Performing Organization Address City/[facility]/ZIP Co de Phone Number [address] [place] [address] * (ABNORMAL) TSH (07/18/2025 12:35 PM HVAC SERVICE MANAGER) Thyroid Stimulating Hormone 0.25(L) 0.30 - 4.20 mcIUnit/mL Blood 07/18/2025 12:3 5 PM HVAC SERVICE MANAGER 07/18/2025 12:45 PM HVAC SERVICE MANAGER Carlie Leon INSTRUCTIONAL WRITER LAB BLOOD ORDERABLES Final Result Performing Organization Address [facility] Co de Phone Number [address] [place] [address] * Magnesium (07/18/2025 12:35 PM HVAC SERVICE MANAGER) Magnesium 2.1 1.4 - 2.5 mg/dL Blood 07/18/2025 12:3 5 PM HVAC SERVICE MANAGER 07/18/2025 12:45 PM HVAC SERVICE MANAGER Carlie Leon INSTRUCTIONAL WRITER LAB BLOOD ORDERABLES Final Result Performing Organization Address [facility] Co de Phone Number [address] [place] [address] * (ABNORMAL) Basic metabolic panel (07/18/2025 12:35 PM HVAC SERVICE MANAGER) Pathologist [facility] Sodium 139 135 - 145 mmol/L Potassium, pl 4.6 3.3 - 4.9 mmol/L [facility] Chloride 105 97 - 110 mmol/L [facility] CO2 27 22 - 32 mmol/L [facility] Anion gap 7 2 - 15 mmol/L [facility] BUN 32(H) 6 - 25 mg/dL [facility] Creatinine 0.93 0.60 - 1.10 mg/dL [facility] Glucose 109 70 - 199 mg/dL [facility] Comment: Interpretive Data Fasting glucose >/= 126 [...] Current interpretive data was last revised 2022. Calcium 8.9 8.5 - 10.3 mg/dL [facility] Blood 07/18/2025 12:3 5 PM HVAC SERVICE MANAGER 07/18/2025 12:45 PM HVAC SERVICE MANAGER us Carlie Leon NP LAB BLOOD ORDERABLES Final Result Performing Organization Address [facility] Co de Phone Number [address] [place] [address] * POCT glucose (07/18/2025 11:19 AM HVAC SERVICE MANAGER) [facility] Glucose, POC 102 70 - 199 mg/dL Glucose comment 1 RN/MD Notified [facility] Blood 07/18/2025 11:1 9 AM HVAC SERVICE MANAGER 07/18/2025 11:19 AM HVAC SERVICE MANAGER Kandi Fuentes MD LAB POCT ORDERABLES - DEVIC E Final Result Performing Organization Address City/[facility] Co de Phone Number [address] [place] [address] * aPTT (07/18/2025 10:07 AM HVAC SERVICE MANAGER) aPTT 35 22 - 37 sec Comment: Interpretive data aPTT test has not been evaluated for monitoring heparin therapy. The anti-Xa is the preferred test. Current interpretive data was last revised on 2019. Blood 07/18/2025 10:0 7 AM HVAC SERVICE MANAGER 07/18/2025 10:09 AM HVAC SERVICE MANAGER Kandi Fuentes MD LAB BLOOD ORDERABLES Final Result Performing Organization Address [facility] Co de Phone Number LISA [address] [place] [address] * Protime-INR (07/18/2025 10:07 AM HVAC SERVICE MANAGER) Pathologist [facility] PT 14.20 12.00 - 14.60 sec INR 1.09 0.90 - 1.20 LISA Comment: Interpretive data Oral anticoagulant therapeutic ranges: Venous thromboembolism prophylaxis or treatment: 2.0-3.0 CARDIOLOGY Standard range: 2.0-3.0 High-intensity range: 2.5-3.5 Refer to indication-specific guidelines for appropriate target ranges for prosthetic heart valve replacement. Current interpretive data was last revised on 2019. Blood 07/18/2025 10:0 7 AM HVAC SERVICE MANAGER 07/18/2025 10:09 AM HVAC SERVICE MANAGER Kandi Fuentes MD LAB BLOOD ORDERABLES Final Result Performing Organization Address City/[facility] Co de Phone Number LISA [address] [place] [address] * ECG 12 lead (07/18/2025 9:54 AM HVAC SERVICE MANAGER) Ventricular Rate EKG/Min 118 BPM [facility] MT-Interval (MSEC) 160 ms [facility] QRS-Interval (MSEC) 100 ms [facility] QT-Interval (MSEC) 332 ms [facility] QTc 465 ms [facility] R [place] -48 degrees [facility] T [place] 115 degrees [facility] Diagnosis Sinus tachycardia Left anterior fascicular block Non-specific intra-ventricu lar conduction delay ST-changes When compared with ECG of 11-JUL-2025 14:33, Junctional rhythm has replaced Atrial flutter Confirmed by SULTAN GAMBOA M.D. ([id number]) on 07/18/2025 5:13:11 PM [facility] 07/18/2025 9:54 AM HVAC SERVICE MANAGER 07/18/2025 5:13 PM HVAC SERVICE MANAGER us Kandi Fuentes MD ECG ORDERABLES Final Resul t [facility] * PERC NGOC CLOSURE W/IMPLANT (WATCHMAN) [id number] (07/18/2025 9:42 AM HVAC SERVICE MANAGER) Anatomical Region Laterality Modality X-Ray Angiograph y Narrative 07/18/2025 10:34 PM HVAC SERVICE MANAGER Procedures HISTORY 75 old female with a history of recurrent atrial fibrillation, status post pacemaker with high risk of bleeding on medical terminologist OAC from hemoptysis. The patient presents for consideration of left atrial appendage closure. Informed consent was obtained after detailed discussion with the patient about the procedures, risks, benefits, and alternatives. The patient consented to open-heart surgery should device placement fail. The patient was brought to the [facility] OR in a fasting state. A time-out was performed. The patient was prepped and draped in the usual sterile fashion. General anesthesia was administered. The patient received endotracheal intubation. OPERATORS: Ryan Maddox MD, VASCULAR ACCESS The right femoral vein was accessed using the modified Seldinger technique. TRANSSEPTAL PUNCTURE Transseptal puncture was made to gain access to the left atrium using a [employer] needle system. Transseptal catheterization was performed and guided by BENEDICT see imaging note. The transseptal puncture was performed mid and inferior position. The wire was advanced through the left atrium and a double curved delivery sheath was placed over the wire. An Amplatzer delivery catheter TorqVue was advanced into the left atrial appendage. Access was achieved into the left atrial appendage. Appendage was determined to be appropriate size for 28 mm left atrial appendage occluder device as suggested by prior CT angiograms and echocardiographic data. LA pressure was 10mm Hg . The patient was kept therapeutically anticoagulated throughout the case. The Amplatzer Amulet 28 mm occluder was inserted and advanced into the left atrial appendage. The device was deployed in position within the left atrial appendage. CLOSE criteria was used to confirm successful device deployment. The device position and compression ratio was verified by transesophageal echo. The compression ratio was acceptable. Tug test demonstrated adequate resistance in spring back to the original position. No NGOC leaks were present after deployment. The device was released and stable.The disk was flat with the ridge Protamine administered. Catheter removed and aemostasis achieved using a purse string suture after removal of all catheters, wires, and sheaths. FINAL INTERPRETATION Successful percutaneous closure of the left atrial appendage with a 28 mm Amplatzer Amulet occluder device without in lab complications. Ryan Maddox MD us Kandi Fuentes MD CV ELECTROPHYSIOLOGY PROCS Final Result * BENEDICT Guidance During Cardiac Structural Intvn [id number] (07/18/2025 9:26 AM HVAC SERVICE MANAGER) Anatomical Region Laterality Modality Ultrasound Narrative 07/18/2025 9:35 AM HVAC SERVICE MANAGER Table formatting from the original result was not included. PROCEDURE Transesophageal ECHO for left atrial appendage closure INDICATION Atrial fibrillation and [id number] score > 2 with hx of recurrent bleeding and couldn't tolerate medical terminologist anticoagulation PROCEDURE DETAILS Patient underwent general anesthesia by the anesthesia staff. BENEDICT probe was inserted. There was no evidence of clot in NGOC. Baseline BENEDICT measurements were taken and was fit for device size 28. Measurement BENEDICT 0 BENEDICT 45 BENEDICT 90 BENEDICT 135 NGOC orifice 22 35 Landing zone 22 26 20 Depth Trans-septal puncture was performed with echo guidance with easy entry into the left atrium mid and inf position. The sheath was advanced under ECHO guidance. Amulet device was loaded and then deployed under echo guidance. Final images showed good device position and no evidence of color leak around it. Device remained stable after released. Pulmonary vein flow & MR function was not impeded. There is no pericardial effusion. Impression: Transesophageal ECHO for successful left atrial appendage occlusion using 28 mm amulet device without in lab complications Kandi Fuentes MD us Kandi Fuentes MD CV ECHO PROCEDURES Final Re sult * (ABNORMAL) POCT Activated clotting time, low range (07/18/2025 9:10 AM HVAC SERVICE MANAGER) ACT 241(H) 123 - 168 sec POC Device Number [id number] KATHIDANIEL LORRIE Blood 07/18/2025 9:10 AM HVAC SERVICE MANAGER 07/18/2025 9:10 AM HVAC SERVICE MANAGER us Parker Orellana MD LAB POCT ORDERABL ES - DEVICE Final Result Performing Organization Address City/State/[facility] Co de Phone Number LISA ANDREW [address] [facility] Department [place] [address] * MT AN ELECTIVE ENDOTRACHEAL AIRWAY, MT AN PROCEDURE PLACEHOLDER (07/18/2025 8:58 AM HVAC SERVICE MANAGER) Narrative Yoon Dowling CRNA - 07/18/2025 8:58 AM HVAC SERVICE MANAGER Yoon Dowling CRNA 07/18/2025 8:59 AM Airway Patient location: OR Urgency: elective Indications for airway management: anesthesia Difficult airway: no Staff: Supervising provider: Miladis Parr MD Placed by: WHEEL WORKER: Yoon Dowling CRNA Emergent airway documentation: Risks and benefits discussed: yes Consent obtained: yes Consent given by: patient Airway prep: Preoxygenated: yes Patient position: sniffing Mask difficulty assessment: 2 - vent by mask + OA or adjuvant Spontaneous ventilation during airway: absent Sedation level during airway: deep Final airway details: Final airway type: endotracheal airway Tube type: ETT ETT size: 7.0 mm Cuffed: yes Technique used for successful ETT placement: video laryngoscopy Devices/Methods used in placement: intubating stylet Insertion site: oral Blade type: Kristal (S3) Video blade type: Glidescope Blade size: 3 Cormack-Lehane (direct): grade IIb - view of arytenoids or posterior of glottis only Cormack-Lehane (video): grade I - full view of glottis Cuff inflated with: air Placement verified by: auscultation and CO2 detection Airway secured with: silk tape Number of attempts: 2 Unsuccessful airway(s) attempted: endotracheal tube Unsuccessful approach(es) for ETT: direct laryngoscopy Planned trial extubation: yes Additional comments: Dentition unchanged from initial pre-op assessment Miladis Parr MD ANESTHESIA ORDERABLES Fi nal Result * Type and screen (07/18/2025 7:24 AM HVAC SERVICE MANAGER) ABO Rh A Positive LISA Hayden, indirect Negative LISA Blood 07/18/2025 7:24 AM HVAC SERVICE MANAGER 07/18/2025 7:29 AM HVAC SERVICE MANAGER Narrative LISA - 07/18/2025 8:07 AM HVAC SERVICE MANAGER Has the patient had Daratumumab or Isatuximab in the past 6 months?->Unknown Kandi Fuentes MD LAB BLOOD BANK TEST ORDERAB LES Final Result Performing Organization Address City/State/[facility] Co de Phone Number LISA [address] [facility] Department [place] [address] * ECG 12 lead (07/11/2025 2:33 PM HVAC SERVICE MANAGER) Ventricular Rate EKG/Min 95 BPM [facility] Atrial Rate 190 BPM [facility] QRS-Interval (MSEC) 102 ms [facility] QT-Interval (MSEC) 354 ms [facility] QTc 444 ms [facility] P Concord -39 degrees [facility] R [place] -46 degrees [facility] T Concord 91 degrees [facility] Diagnosis Atrial flutter with 2:1 A-V conduction Left anterior fascicular block Abnormal QRS-T angle, consider primary T wave abnormality Abnormal ECG When compared with ECG of 30-JUN-2025 09:24, Atrial flutter has replaced Electronic ventricular pacemaker Confirmed by ABDIRAHMAN DOMINIQUE M.D. ([id number]) on 07/11/2025 2:55:12 PM [facility] 07/11/2025 2:33 PM HVAC SERVICE MANAGER 07/11/2025 2:55 PM HVAC SERVICE MANAGER Miguel Whitfield DO ECG ORDERABLES Final Resul t Performing Organization Address City/[facility]/ZIP Co de Phone Number [facility] * (ABNORMAL) Troponin T high-sensitivity series (baseline, 2hr, 4hr, 6hr) (07/11/2025 2:27 PM HVAC SERVICE MANAGER) Trop T hs 36(H) <=14 ng/L Comment: Interpretive Data For further hscTnT resources including the diagnostic algorithm and an aid in interpretation, copy and paste this link: https://nrl.testcatalog.org/show/hsTrop Current Interpretive Data last revised 2020. Testing performed by: [facility], [address] [place] [address]., [id number] Blood 07/11/2025 2:27 PM HVAC SERVICE MANAGER 07/11/2025 2:39 PM HVAC SERVICE MANAGER Miguel Whitfield DO LAB BLOOD ORDERABLES Final Result Performing Organization Address City/[facility] Co de Phone Number LISA [facility]3 [facility] Department of Laboratories [place], [place] [id number] * (ABNORMAL) eGFR (07/11/2025 2:27 PM HVAC SERVICE MANAGER) eGFR 52(L) >=60 mL/min/1. 73 m2 Comment: Interpretive Data [...] was last reviewed 2021. Testing performed by: [address] [address] Blood 07/11/2025 2:27 PM HVAC SERVICE MANAGER 07/11/2025 2:39 PM HVAC SERVICE MANAGER Miguel Whitfield DO LAB BLOOD ORDERABLES Final Result [facility] [address] [facility] Department [place] [address] * Differential, auto (07/11/2025 2:27 PM HVAC SERVICE MANAGER) Neutrophil abs 4.29 1.50 - 6.50 K/cumm Comment:Testing performed by : [address] [address] Imm gran abs 0.01 0.00 - 0.10 K/cumm LISA Comment:Testing performed by : [address] [address] Lymphocyte abs 1.24 0.80 - 3.30 K/cumm LISA Comment:Testing performed by : [address] [address] Monocyte abs 0.53 0.20 - 0.80 K/cumm LISA Comment:Testing performed by : [address] [address] Eosinophil abs 0.10 0.00 - 0.50 K/cumm LISA Comment:Testing performed by : [address] [address] Basophil abs 0.04 0.00 - 0.10 K/cumm LISA Comment:Testing performed by : [address] [address] Neutrophil pct 69.1 % LISA Comment: Interpretive Data Percent cell count reference ranges are not reported, since discordance with absolute values may lead to misinterpretation of CBC data. Current Interpretive Data was last revised on 2017. Testing performed by: [address] [address] Imm gran pct 0.2 % LISA Comment: Interpretive Data Percent cell count reference ranges are not reported, since discordance with absolute values may lead to misinterpretation of CBC data. Current Interpretive Data was last revised on 2017. Testing performed by: [address] [address] Lymphocyte pct 20.0 % CERDANIEL Comment: Interpretive Data Percent cell count reference ranges are not reported, since discordance with absolute values may lead to misinterpretation of CBC data. Current Interpretive Data was last revised on 2017. Testing performed by: [address] [address] Monocyte pct 8.5 % CERDANIEL Comment: Interpretive Data Percent cell count reference ranges are not reported, since discordance with absolute values may lead to misinterpretation of CBC data. Current Interpretive Data was last revised on 2017. Testing performed by: [address] [address] Eosinophil pct 1.6 % LISA Comment: Interpretive Data Percent cell count reference ranges are not reported, since discordance with absolute values may lead to misinterpretation of CBC data. Current Interpretive Data was last revised on 2017. Testing performed by: [address] [address] Basophil pct 0.6 % CERDANIEL Comment: Interpretive Data Percent cell count reference ranges are not reported, since discordance with absolute values may lead to misinterpretation of CBC data. Current Interpretive Data was last revised on 2017. Testing performed by: [address] [address] Blood 07/11/2025 2:27 PM HVAC SERVICE MANAGER 07/11/2025 2:39 PM HVAC SERVICE MANAGER us Miguel Whitfield DO LAB BLOOD ORDERABLES Final Result LISA ANDREW [address] [facility] Department of Laboratories [place], [place] [id number] * (ABNORMAL) CBC with auto differential (07/11/2025 2:27 PM HVAC SERVICE MANAGER) WBC 6.21 3.80 - 9.90 K/cumm Comment:Testing performed by : [address] [address] Hgb 10.7(L) 11.9 - 15.5 g/dL CERDANIEL Comment:Testing performed by : [address] [address] Hct 32.2(L) 35.6 - 45.5 % CERNER Comment:Testing performed by : [address] [address] Plt 198 150 - 400 K/cumm CERDANIEL Comment:Testing performed by : [address] [address] MPV 10.1 9.1 - 12.3 fL CERDANIEL Comment:Testing performed by : [address] [address] RBC 3.28(L) 3.90 - 5.20 M/cumm CERDANIEL Comment:Testing performed by : [address] [address] MCV 98.2(H) 81.3 - 96.4 fL CERNER Comment:Testing performed by : [address] [address] MCH 32.6 27.1 - 33.3 pg CERDANIEL Comment:Testing performed by : [address] [address] MCHC 33.2 32.3 - 35.7 g/dL CERDANIEL Comment:Testing performed by : [address] [address] RDW CV 12.6 11.1 - 14.9 % CERNER Comment:Testing performed by : [address] [address] RDW SD 45.3 35.7 - 48.1 fL CERDANIEL Comment:Testing performed by : [address] [address] NRBC abs 0.00 0.00 - 0.01 K/cumm LISA Comment:Testing performed by : [address], [address] Blood 07/11/2025 2:27 PM HVAC SERVICE MANAGER 07/11/2025 2:39 PM HVAC SERVICE MANAGER Miguel Dario Brownhu LAB BLOOD ORDERABLES Final Result LISA [address] [facility] Department [place] [address] * (ABNORMAL) Comprehensive metabolic panel (07/11/2025 2:27 PM HVAC SERVICE MANAGER) Sodium 139 135 - 145 mmol/L Comment:Testing performed by : [address] [address] Potassium, pl 4.7 3.3 - 4.9 mmol/L LISA Comment:Testing performed by : [address] [address] Chloride 103 97 - 110 mmol/L LISA Comment:Testing performed by : [address] [address] CO2 27 22 - 32 mmol/L LISA Comment:Testing performed by : [address] [address] Anion gap 9 2 - 15 mmol/L LISA Comment:Testing performed by : [address] [address] BUN 38(H) 6 - 25 mg/dL LISA Comment:Testing performed by : [address] [address] Creatinine 1.10 0.60 - 1.10 mg/dL LISA Comment:Testing performed by : [address] [address] Glucose 109 70 - 199 mg/dL LISA Comment: Interpretive [...] was last revised 2022. Testing performed by: [address] [address] Calcium 9.2 8.5 - 10.3 mg/dL LISA Comment:Testing performed by : [address] [address] Bilirubin, total 0.7 0.1 - 1.2 mg/dL LISA Comment:Testing performed by : [address] [address] Protein, pl 7.8 6.5 - 8.5 g/dL LISA Comment:Testing performed by : [address] [address] Albumin 4.2 3.5 - 5.0 g/dL LISA Comment:Testing performed by : [address] [address] Alk phos 124 40 - 130 Units/L LISA Comment:Testing performed by : [address] [address] ALT 14 7 - 45 Units/L LISA Comment:Testing performed by : [address] [address] AST 22 10 - 45 Units/L LISA Comment:Testing performed by : [address] [address] Blood 07/11/2025 2:27 PM HVAC SERVICE MANAGER 07/11/2025 2:39 PM HVAC SERVICE MANAGER Miguel Whitfield DO LAB BLOOD ORDERABLES Final Result LISA [address] [facility] Department [place] [address] * XR Chest Pa Lateral 2 Views (06/30/2025 9:44 AM HVAC SERVICE MANAGER) Anatomical Region Laterality Modality Body, Chest N/A Computed Radiogr aphy 06/30/2025 9:48 AM HVAC SERVICE MANAGER Impressions 06/30/2025 9:48 AM HVAC SERVICE MANAGER 1. Mild chronic coarsening of interstitial lung markings without definite evidence of a focal consolidation. 2. Cardiomegaly. Electronically signed by: Jed Cavazos D.O. Narrative 06/30/2025 9:48 AM HVAC SERVICE MANAGER STUDY DESCRIPTION: XR CHEST PA LATERAL 2 VIEWS ORDERING HEALTHCARE PROVIDER: KANDI FUENTES CLINICAL INDICATIONS: Unspecified atrial fibrillation. COMPARISON: 04/30/2025 TECHNIQUE: Two-view chest. FINDINGS: There is cardiomegaly. The pulmonary vasculature and mediastinum are grossly stable. Left-sided cardiac device is noted. There is mild chronic coarsening of the chest show lung markings. There is no definite evidence of a pneumothorax. There is no definite evidence of a focal consolidation or pleural effusion. The osseous structures are acutely grossly stable. Procedure Note Jed Cavazos, DO - 06/30/2025 STUDY DESCRIPTION: XR CHEST PA LATERAL 2 VIEWS ORDERING HEALTHCARE PROVIDER: KANDI FUENTES CLINICAL INDICATIONS: Unspecified atrial fibrillation. COMPARISON: 04/30/2025 TECHNIQUE: Two-view chest. FINDINGS: There is cardiomegaly. The pulmonary vasculature and mediastinum are grossly stable. Left-sided cardiac device is noted. There is mild chronic coarsening of the chest show lung markings. There is no definite evidence of a pneumothorax. There is no definite evidence of a focal consolidation or pleural effusion. The osseous structures are acutely grossly stable. IMPRESSION: 1. Mild chronic coarsening of interstitial lung markings without definite evidence of a focal consolidation. 2. Cardiomegaly. Electronically signed by: Jed Cavazos D.O. Kandi Fuentes MD IMG XR PROCEDURES Final Res ult * TYPE AND SCREEN 14 DAY (06/30/2025 9:30 AM HVAC SERVICE MANAGER) ABO Rh A Positive LISA ANDREW Hayden, indirect Negative LISA ANDREW Blood 06/30/2025 9:30 AM HVAC SERVICE MANAGER 06/30/2025 9:35 AM HVAC SERVICE MANAGER Narrative LISA - 06/30/2025 10:29 AM HVAC SERVICE MANAGER Has the patient had Daratumumab or Isatuximab in the past 6 months?->No Is this test being ordered in advance for a procedure?->Yes Expected date of procedure:->07/04/25 Has the patient been transfused in the past 3 months?->No Has the patient been in the past 3 months?->No Kandi Fuentes MD LAB BLOOD BANK TEST ORDERAB LES Final Result Performing Organization Address [facility] Co de Phone Number LISA [address] [place] [address] * (ABNORMAL) eGFR (06/30/2025 9:30 AM HVAC SERVICE MANAGER) Pathologist [facility] eGFR 52(L) >=60 mL/min/1. 73 m2 Comment: Interpretive Data [...] Current interpretive data was last reviewed 2021. Blood 06/30/2025 9:30 AM HVAC SERVICE MANAGER 06/30/2025 9:35 AM HVAC SERVICE MANAGER Kandi Fuentes MD LAB BLOOD ORDERABLES Final Result Performing Organization Address [facility] Co de Phone Number LISA [address] [place] [address] * Differential, auto (06/30/2025 9:30 AM HVAC SERVICE MANAGER) Neutrophil abs 2.65 1.50 - 6.50 K/cumm Imm gran abs 0.01 0.00 - 0.10 K/cumm [facility] Lymphocyte abs 1.29 0.80 - 3.30 K/cumm [facility] Monocyte abs 0.56 0.20 - 0.80 K/cumm [facility] Eosinophil abs 0.15 0.00 - 0.50 K/cumm [facility] Basophil abs 0.03 0.00 - 0.10 K/cumm [facility] Neutrophil pct 56.6 % [facility] Comment: Interpretive Data Percent cell count reference ranges are not reported, since discordance with absolute values may lead to misinterpretation of CBC data. Current Interpretive Data was last revised on 2017. Imm gran pct 0.2 % [facility] Comment: Interpretive Data Percent cell count reference ranges are not reported, since discordance with absolute values may lead to misinterpretation of CBC data. Current Interpretive Data was last revised on 2017. Lymphocyte pct 27.5 % [facility] Comment: Interpretive Data Percent cell count reference ranges are not reported, since discordance with absolute values may lead to misinterpretation of CBC data. Current Interpretive Data was last revised on 2017. Monocyte pct 11.9 % [facility] Comment: Interpretive Data Percent cell count reference ranges are not reported, since discordance with absolute values may lead to misinterpretation of CBC data. Current Interpretive Data was last revised on 2017. Eosinophil pct 3.2 % [facility] Comment: Interpretive Data Percent cell count reference ranges are not reported, since discordance with absolute values may lead to misinterpretation of CBC data. Current Interpretive Data was last revised on 2017. Basophil pct 0.6 % [facility] Comment: Interpretive Data Percent cell count reference ranges are not reported, since discordance with absolute values may lead to misinterpretation of CBC data. Current Interpretive Data was last revised on 2017. Blood 06/30/2025 9:30 AM HVAC SERVICE MANAGER 06/30/2025 9:35 AM HVAC SERVICE MANAGER us Kandi Fuentes MD LAB BLOOD ORDERABLES Final Result [address] [address] * (ABNORMAL) CBC with auto differential (06/30/2025 9:30 AM HVAC SERVICE MANAGER) [facility] WBC 4.69 3.80 - 9.90 K/cumm Hgb 10.0(L) 11.9 - 15.5 g/dL [facility] Hct 30.8(L) 35.6 - 45.5 % [facility] Plt 196 150 - 400 K/cumm [facility] MPV 10.1 9.1 - 12.3 fL [facility] RBC 3.04(L) 3.90 - 5.20 M/cumm [facility] MCV 101.3(H) 81.3 - 96.4 fL [facility] MCH 32.9 27.1 - 33.3 pg [facility] MCHC 32.5 32.3 - 35.7 g/dL [facility] RDW CV 12.8 11.1 - 14.9 % [facility] RDW SD 47.8 35.7 - 48.1 fL [facility] NRBC abs 0.00 0.00 - 0.01 K/cumm [facility] Blood 06/30/2025 9:30 AM HVAC SERVICE MANAGER 06/30/2025 9:35 AM HVAC SERVICE MANAGER Kandi Fuentes MD LAB BLOOD ORDERABLES Final Result Performing Organization Address [facility] de Phone Number [place] [id number] [place] [address] * aPTT (06/30/2025 9:30 AM HVAC SERVICE MANAGER) [facility] aPTT 30 22 - 37 sec Comment: Interpretive data aPTT test has not been evaluated for monitoring heparin therapy. The anti-Xa is the preferred test. Current interpretive data was last revised on 2019. Blood 06/30/2025 9:30 AM HVAC SERVICE MANAGER 06/30/2025 9:35 AM HVAC SERVICE MANAGER Kandi Fuentes MD LAB BLOOD ORDERABLES Final Result Performing Organization Address [facility] de Phone Number [place] [id number] [facility] [place] [address] * Protime-INR (06/30/2025 9:30 AM HVAC SERVICE MANAGER) [facility] PT 13.50 12.00 - 14.60 sec INR 1.02 0.90 - 1.20 [facility] Comment: Interpretive data Oral anticoagulant therapeutic ranges: Venous thromboembolism prophylaxis or treatment: 2.0-3.0 CARDIOLOGY Standard range: 2.0-3.0 High-intensity range: 2.5-3.5 Refer to indication-specific guidelines for appropriate target ranges for prosthetic heart valve replacement. Current interpretive data was last revised on 2019. Blood 06/30/2025 9:30 AM HVAC SERVICE MANAGER 06/30/2025 9:35 AM HVAC SERVICE MANAGER Kandi Fuentes MD LAB BLOOD ORDERABLES Final Result Performing Organization Address [facility] de Phone Number [address] [address] * (ABNORMAL) Comprehensive metabolic panel (06/30/2025 9:30 AM HVAC SERVICE MANAGER) [facility] Sodium 139 135 - 145 mmol/L Potassium, pl 4.9 3.3 - 4.9 mmol/L [facility] Chloride 104 97 - 110 mmol/L [facility] CO2 27 22 - 32 mmol/L [facility] Anion gap 8 2 - 15 mmol/L [facility] BUN 41(H) 6 - 25 mg/dL [facility] Creatinine 1.10 0.60 - 1.10 mg/dL [facility] Glucose 90 70 - 199 mg/dL [facility] Comment: Interpretive Data Fasting glucose >/= 126 [...] Current interpretive data was last revised 2022. Calcium 9.1 8.5 - 10.3 mg/dL [facility] Bilirubin, total 0.4 0.1 - 1.2 mg/dL [facility] Protein, pl 7.4 6.5 - 8.5 g/dL [facility] Albumin 4.0 3.5 - 5.0 g/dL [facility] Alk phos 136(H) 40 - 130 Units/L [facility] ALT 19 7 - 45 Units/L [facility] AST 29 10 - 45 Units/L [facility] Blood 06/30/2025 9:30 AM HVAC SERVICE MANAGER 06/30/2025 9:35 AM HVAC SERVICE MANAGER Kandi Fuentes MD LAB BLOOD ORDERABLES Final Result Performing Organization Address [facility] Co de Phone Number [facility] [address] [facility] Department [place] [address] * ECG 12 lead (06/30/2025 9:24 AM HVAC SERVICE MANAGER) Ventricular Rate EKG/Min 70 BPM [facility] Atrial Rate 187 BPM [facility] QRS-Interval (MSEC) 154 ms [facility] QT-Interval (MSEC) 444 ms [facility] QTc 479 ms [facility] R Concord 99 degrees [facility] T Concord -47 degrees [facility] Diagnosis Sinus tachycardia with Ventricular-pa norman rhythm Abnormal ECG When compared with ECG of 28-APR-2025 07:25, Vent. rate has decreased BY 4 BPM Confirmed by FROILAN TYLER M.D. ([id number]) on 06/30/2025 1:32:39 PM [facility] 06/30/2025 9:24 AM HVAC SERVICE MANAGER 06/30/2025 1:32 PM HVAC SERVICE MANAGER Kandi Fuentes MD ECG ORDERABLES Final Resul t Performing Organization Address City/[facility] Co de Phone Number [facility] * CT Heart Morphology W Contrast (06/16/2025 4:04 PM HVAC SERVICE MANAGER) Anatomical Region Laterality Modality Chest N/A Computed Tomogra phy 06/18/2025 6:54 PM HVAC SERVICE MANAGER Impressions 06/18/2025 6:54 PM HVAC SERVICE MANAGER 1. No left atrial appendage thrombus. Left atrial appendage measurements as above. 2. Cardiomegaly with marked left atrial dilatation. Severe coronary calcification. 3. Similar-appearing scattered nodules which may reflect chronic atypical endobronchial infection. Recommend continued attention on follow-up. 4. Similar-appearing scattered bronchiectasis, architectural distortion, and diffuse subpleural reticulation which may be secondary to above or reflect underlying interstitial lung disease. 5. Questionable mild wall thickening of the lower esophagus. Correlate with symptoms of esophagitis. 6. Additional incidental and chronic findings as above. Electronically signed by: Miguelangel Rangel M.D. Narrative 06/18/2025 6:54 PM HVAC SERVICE MANAGER EXAMINATION: CT HEART MORPHOLOGY W CONTRAST HISTORY: Patient with arrhythmia, pre-left atrial appendage occlusion procedure. Atrial fibrillation-flutter, measurements for left atrial appendage closure TECHNIQUE: Heart CT performed following administration of intravenous contrast per pulmonary vein/left atrial appendage protocol. Images were transferred to an independent workstation for additional 3D post-processing. COMPARISON: 04/27/2025 10/22/2024 FINDINGS: Left atrial appendage: No thrombus.. Windsock morphology. Left atrial appendage ostium measures 33.4 x 32.1 mm with a circumference of 106.6 mm. Left atrial appendage measures 24.9 x 23.0 mm with a circumference of 77.5 mm approximately 10 mm from the ostium. Measures 26.9 x 22.4 mm with a circumference of 79.5 mm approximately 15 mm from the ostium. Measures 23.1 x 19.4 mm with a circumference of 68.3 mm approximately 20 mm from the ostium. Pulmonary vein anatomy: 2 veins on the left and 2 veins on the right. Other cardiac findings: Cardiomegaly with left atrial dilatation. Left atrial AP diameter of approximately 6.7 cm. Tricuspid morphology of the aortic valve. Severe multivessel coronary artery atherosclerotic calcification. No significant pericardial effusion. Partially visualized pacemaker device with leads terminating in the right atrial appendage and right ventricle. Aortic and mitral annulus calcification. Other findings: Multifocal atherosclerotic changes of the aorta and its major branches. No aortic aneurysm. Patulous esophagus with mild wall thickening of the lower esophagus although likely accentuated by decompression. No acute abnormality of the visualized abdomen. Similar-appearing scattered bronchiectasis, diffuse subpleural reticulation, and architectural distortion. Numerous bronchocentric nodules throughout all lobes not significantly changed when compared to 04/27/2025. Unchanged partially cavitary 1.6 x 1.2 cm opacity in the anterolateral right lower lobe (8; 65). Multilevel degenerative changes of the visualized spine. Procedure Note Miguelangel Rangel MD - 06/18/2025 EXAMINATION: CT HEART MORPHOLOGY W CONTRAST HISTORY: Patient with arrhythmia, pre-left atrial appendage occlusion procedure. Atrial fibrillation-flutter, measurements for left atrial appendage closure TECHNIQUE: Heart CT performed following administration of intravenous contrast per pulmonary vein/left atrial appendage protocol. Images were transferred to an independent workstation for additional 3D post-processing. COMPARISON: 04/27/2025 10/22/2024 FINDINGS: Left atrial appendage: No thrombus.. Windsock morphology. Left atrial appendage ostium measures 33.4 x 32.1 mm with a circumference of 106.6 mm. Left atrial appendage measures 24.9 x 23.0 mm with a circumference of 77.5 mm approximately 10 mm from the ostium. Measures 26.9 x 22.4 mm with a circumference of 79.5 mm approximately 15 mm from the ostium. Measures 23.1 x 19.4 mm with a circumference of 68.3 mm approximately 20 mm from the ostium. Pulmonary vein anatomy: 2 veins on the left and 2 veins on the right. Other cardiac findings: Cardiomegaly with left atrial dilatation. Left atrial AP diameter of approximately 6.7 cm. Tricuspid morphology of the aortic valve. Severe multivessel coronary artery atherosclerotic calcification. No significant pericardial effusion. Partially visualized pacemaker device with leads terminating in the right atrial appendage and right ventricle. Aortic and mitral annulus calcification. Other findings: Multifocal atherosclerotic changes of the aorta and its major branches. No aortic aneurysm. Patulous esophagus with mild wall thickening of the lower esophagus although likely accentuated by decompression. No acute abnormality of the visualized abdomen. Similar-appearing scattered bronchiectasis, diffuse subpleural reticulation, and architectural distortion. Numerous bronchocentric nodules throughout all lobes not significantly changed when compared to 04/27/2025. Unchanged partially cavitary 1.6 x 1.2 cm opacity in the anterolateral right lower lobe (8; 65). Multilevel degenerative changes of the visualized spine. IMPRESSION: 1. No left atrial appendage thrombus. Left atrial appendage measurements as above. 2. Cardiomegaly with marked left atrial dilatation. Severe coronary calcification. 3. Similar-appearing scattered nodules which may reflect chronic atypical endobronchial infection. Recommend continued attention on follow-up. 4. Similar-appearing scattered bronchiectasis, architectural distortion, and diffuse subpleural reticulation which may be secondary to above or reflect underlying interstitial lung disease. 5. Questionable mild wall thickening of the lower esophagus. Correlate with symptoms of esophagitis. 6. Additional incidental and chronic findings as above. Electronically signed by: Miguelangel Rangel M.D. us Kandi Fuentes MD IMG CT PROCEDURES Final Res ult * TRANSESOPHAGEAL ECHO (BENEDICT) W DOPPLER/CF WO [...] appendage measurement with no evidence of thrombus Kandi Fuentes MD CV ECHO PROCEDURES Final Re sult * POCT glucose (05/14/2025 7:11 AM CDT) Glucose, POC 96 70 - 199 mg/dL Blood 05/14/2025 7:11 AM CDT 05/14/2025 7:11 AM CDT Kandi Funetes MD LAB POCT ORDERABLES - DEVIC E Final Result Performing Organization Address City/State/[facility] Co mt Phone Number [facility] [address] [place] [address] * DEVICE CHECK - REMOTE (2025 9:16 AM CDT) Anatomical Region Laterality Modality Other Narrative 05/10/2025 12:54 PM CDT Table formatting from the original result was not included. Patient ID: Jayson Najera is a 75 y.o. female This patient has a(n) [employer] dual chamber pacemaker. They had a routine remote transmission on 2025. Device implant indications: SND, PAF Interrogation of the patient's device demonstrates the following: Battery Status: 6 years to RICK. Presenting EGM: AFL/SAP BASIS ARCHITECT 70 bpm w/ PVCs Mode: DDD 70/120 [...] 0% 18% Episodes since last cleared: AT/AF Velma 100% 342 high ventricular rate episode(s): viewable [...] In-office device check scheduled on 02/05/2026. Glendy Sandhu RN ATTESTATION I have reviewed the device interrogation report associated with this encounter in detail. I agree with the documentation recorded/scanned into the electronic medical record. Recommendations: Continue current device follow-up. Kandi Fuentes MD us Kandi Fuentes MD CV CARDIAC SERVICES PROCEDU RES Final Result * POCT glucose (04/30/2025 11:56 AM CDT) Glucose, POC 133 70 - 199 mg/dL Comment:Testing performed by : [address] [id number] Blood 04/30/2025 11:5 6 AM CDT 04/30/2025 11:56 AM CDT Jerel Hickey MD LAB POCT ORDERABLES - DEVICE Final Result [facility] [address] [facility] Department [place] [address] * (ABNORMAL) Hemoglobin and hematocrit (04/30/2025 8:40 AM CDT) Hgb 9.7(L) 11.9 - 15.5 g/dL Comment:Testing performed by : [address] [address] Hct 29.1(L) 35.6 - 45.5 % LISA Comment:Testing performed by : [address] [address] Blood 04/30/2025 8:40 AM CDT 04/30/2025 8:44 AM CDT Duke Swain MD LAB BLOOD ORDERABLES F inal Result Performing Organization Address [facility] Co de Phone Number LISA [facility] [place] [address] * POCT glucose (04/30/2025 8:39 AM CDT) [facility] Signature Glucose, POC 91 70 - 199 mg/dL Comment:Testing performed by : [facility], [address] [place] [address]., [address] Glucose comment 1 RN/MD Notified [facility] Comment:Testing performed by : [facility], [address] [place] [address]., [address] Blood 04/30/2025 8:39 AM CDT 04/30/2025 8:39 AM CDT Jerel Hickey MD LAB POCT ORDERABLES - DEVICE Final Result Performing Organization Address [facility] Co de Phone Number [address] [address] * XR Chest 1 View (04/30/2025 8:37 [...] Rose Cornell M.D. TW: TW Report ID: [id number] Reading Location: [id number] Procedure Note Rose Cornell MD - 04/30/2025 [...] Rose Cornell M.D. TW: TW Report ID: [id number] Reading Location: [id number] Duke Swain MD IMG XR PROCEDURES Samantha [...] was last reviewed 2021. Testing performed by: [address] [address] Blood 04/30/2025 3:43 AM CDT 04/30/2025 4:18 AM CDT Duke Swain MD LAB BLOOD ORDERABLES F inal Result [facility] [address] [facility] Department [place] [address] * Differential, auto (04/30/2025 3:43 AM CDT) Neutrophil abs 3.17 1.50 - 6.50 K/cumm Comment:Testing performed by : [address] [address] Imm gran abs 0.01 0.00 - 0.10 K/cumm [facility] Comment:Testing performed by : [address] [address] Lymphocyte abs 1.55 0.80 - 3.30 K/cumm [facility] Comment:Testing performed by : [address] [address] Monocyte abs 0.46 0.20 - 0.80 K/cumm [facility] Comment:Testing performed by : [address], [place]., [address] Eosinophil abs 0.00 0.00 - 0.50 K/cumm [facility] Comment:Testing performed by : [address] [address] Basophil abs 0.02 0.00 - 0.10 K/cumm [facility] Comment:Testing performed by : [address] [address] Neutrophil pct 60.8 % [facility] Comment: Interpretive Data Percent cell count reference ranges are not reported, since discordance with absolute values may lead to misinterpretation of CBC data. Current Interpretive Data was last revised on 2017. Testing performed by: [address] [address] Imm gran pct 0.2 % [facility] Comment: Interpretive Data Percent cell count reference ranges are not reported, since discordance with absolute values may lead to misinterpretation of CBC data. Current Interpretive Data was last revised on 2017. Testing performed by: [address] [address] Lymphocyte pct 29.8 % [facility] Comment: Interpretive Data Percent cell count reference ranges are not reported, since discordance with absolute values may lead to misinterpretation of CBC data. Current Interpretive Data was last revised on 2017. Testing performed by: [address] [address] Monocyte pct 8.8 % [facility] Comment: Interpretive Data Percent cell count reference ranges are not reported, since discordance with absolute values may lead to misinterpretation of CBC data. Current Interpretive Data was last revised on 2017. Testing performed by: [address] [address] Eosinophil pct 0.0 % LISA Comment: Interpretive Data Percent cell count reference ranges are not reported, since discordance with absolute values may lead to misinterpretation of CBC data. Current Interpretive Data was last revised on 2017. Testing performed by: [address] [address] Basophil pct 0.4 % LISA Comment: Interpretive Data Percent cell count reference ranges are not reported, since discordance with absolute values may lead to misinterpretation of CBC data. Current Interpretive Data was last revised on 2017. Testing performed by: [address] [address] Blood 04/30/2025 3:43 AM CDT 04/30/2025 4:18 AM CDT us Carlie Leon NP LAB BLOOD ORDERABLES Final Result Performing Organization Address [facility] Co de Phone Number KATHI[address] [place] [address] * Iron profile w/ IBC (04/30/2025 3:43 AM CDT) Iron 85 35 - 145 mcg/dL Comment:Testing performed by : [address] [address] TIBC 264 250 - 400 mcg/dL LISA Comment:Testing performed by : [address] [address] Transferrin saturation 32 20 - 50 % LISA Comment:Testing performed by : [address] [address] Blood 04/30/2025 3:43 AM CDT 04/30/2025 4:18 AM CDT us Jerel Hickey MD LAB BLOOD ORDERABLES Final R esult Performing Organization Address City/[facility] Co de Phone Number [facility] [address] [place] [address] [place] [address] * (ABNORMAL) CBC with auto differential (04/30/2025 3:43 AM CDT) [facility] WBC 5.21 3.80 - 9.90 K/cumm Comment:Testing performed by : [address] [address] Hgb 8.9(L) 11.9 - 15.5 g/dL LISA Comment:Testing performed by : [address] [address] Hct 26.5(L) 35.6 - 45.5 % LISA Comment:Testing performed by : [address] [address] Plt 201 150 - 400 K/cumm LISA Comment:Testing performed by : [address] [address] MPV 10.3 9.1 - 12.3 fL LISA Comment:Testing performed by : [address], [address] RBC 2.78(L) 3.90 - 5.20 M/cumm LISA Comment:Testing performed by : [address] [address] MCV 95.3 81.3 - 96.4 fL LISA Comment:Testing performed by : [address] [address] MCH 32.0 27.1 - 33.3 pg LISA Comment:Testing performed by : [address] [address] MCHC 33.6 32.3 - 35.7 g/dL LISA Comment:Testing performed by : [address], [address] RDW CV 13.5 11.1 - 14.9 % LISA Comment:Testing performed by : [address] [address] RDW SD 47.2 35.7 - 48.1 fL LISA Comment:Testing performed by : [address] [address] NRBC abs 0.00 0.00 - 0.01 K/cumm [facility] Comment:Testing performed by : [address] [address] Blood 04/30/2025 3:43 AM CDT 04/30/2025 4:18 AM CDT us Carlie Leon INSTRUCTIONAL WRITER LAB BLOOD ORDERABLES Final Result Performing Organization Address City/[facility] Co de Phone Number [address] [place] [address] * Vitamin D 25 hydroxy (04/30/2025 3:43 AM CDT) Pathologist [facility] Vitamin D 25-OH 80.0 30.0 - 80.0 ng/mL Blood 04/30/2025 3:43 AM CDT 04/30/2025 6:21 AM CDT us Jerel Hickey MD LAB BLOOD ORDERABLES Final R esult Performing Organization Address [facility] de Phone Number [address] [place] [address] * CRP (acute phase) (04/30/2025 3:43 AM CDT) Pathologist [facility] CRP 0.9 <=10.0 mg/L Comment:Testing performed by : [address] [address] Blood 04/30/2025 3:43 AM CDT 04/30/2025 4:18 AM CDT Duke Swain MD LAB BLOOD ORDERABLES F inal Result Performing Organization Address [facility] Co de Phone Number [address] [place] [address] * Folate (04/30/2025 3:43 AM CDT) Folic acid >20.0 >=5.0 ng/mL Comment:Testing performed by : [address] [address] Blood 04/30/2025 3:43 AM CDT 04/30/2025 4:18 AM CDT Jerel Hickey MD LAB BLOOD ORDERABLES Final R esult Performing Organization Address City/[facility] Co de Phone Number [address] [place] [address] * Vitamin B12 (04/30/2025 3:43 AM CDT) [facility] Vitamin B12 816 230 - 1,250 pg/mL Comment:Testing performed by : [address] [address] Blood 04/30/2025 3:43 AM CDT 04/30/2025 4:18 AM CDT Jerel Hickey MD LAB BLOOD ORDERABLES Final R esult Performing Organization Address [facility] Co de Phone Number [address] [address] * (ABNORMAL) Comprehensive metabolic panel (04/30/2025 3:43 AM CDT) [facility] Sodium 135 135 - 145 mmol/L Comment:Testing performed by : [address] [address] Potassium, pl 4.4 3.3 - 4.9 mmol/L LISA Comment:Testing performed by : [address] [address] Chloride 103 97 - 110 mmol/L LISA Comment:Testing performed by : [address] [address] CO2 20(L) 22 - 32 mmol/L LISA Comment:Testing performed by : [address] [address] Anion gap 12 2 - 15 mmol/L LISA Comment:Testing performed by : [address] [address] BUN 38(H) 6 - 25 mg/dL LISA Comment:Testing performed by : [address] [address] Creatinine 1.00 0.60 - 1.10 mg/dL LISA Comment:Testing performed by : [address] [address] Glucose 98 70 - 199 mg/dL LISA [...] was last revised 2022. Testing performed by: [address] [address] Calcium 8.5 8.5 - 10.3 mg/dL LISA Comment:Testing performed by : [address] [address] Bilirubin, total 0.4 0.1 - 1.2 mg/dL LISA Comment:Testing performed by : [address] [address] Protein, pl 6.9 6.5 - 8.5 g/dL LISA Comment:Testing performed by : [address] [address] Albumin 3.6 3.5 - 5.0 g/dL LISA Comment:Testing performed by : [address] [address] Alk phos 186(H) 40 - 130 Units/L LISA Comment:Testing performed by : [address] [address] ALT 24 7 - 45 Units/L LISA Comment:Testing performed by : [address] [address] AST 23 10 - 45 Units/L LISA Comment:Testing performed by : [address] [address] Blood 04/30/2025 3:43 AM CDT 04/30/2025 4:18 AM CDT Duke Swain MD LAB BLOOD ORDERABLES F inal Result Performing Organization Address [facility] Co de Phone Number [address] [place] [address] * POCT glucose (04/29/2025 8:28 PM CDT) Glucose, POC 158 70 - 199 mg/dL Comment:Testing performed by : [address] [address] Glucose comment 1 RN/MD Notified LISA Comment:Testing performed by : [address] [address] Blood 04/29/2025 8:28 PM CDT 04/29/2025 8:28 PM CDT us Jerel Hickey MD LAB POCT ORDERABLES - DEVICE Final Result Performing Organization Address [facility] de Phone Number [address] [address] * POCT glucose (04/29/2025 4:57 PM CDT) Glucose, POC 159 70 - 199 mg/dL Comment:Testing performed by : [address] [address] Glucose comment 1 RN/MD Notified LISA Comment:Testing performed by : [address] [address] Blood 04/29/2025 4:57 PM CDT 04/29/2025 4:57 PM CDT us Jerel Hickey MD LAB POCT ORDERABLES - DEVICE Final Result Performing Organization Address [facility] Co de Phone Number KATHI[address] [place] [address] * (ABNORMAL) Hemoglobin and hematocrit (04/29/2025 2:31 PM CDT) Hgb 9.8(L) 11.9 - 15.5 g/dL Comment:Testing performed by : [address] [address] Hct 29.7(L) 35.6 - 45.5 % [facility] Comment:Testing performed by : [address] [address] Blood 04/29/2025 2:31 PM CDT 04/29/2025 2:52 PM CDT us Carlie Leon NP LAB BLOOD ORDERABLES Final Result Performing Organization Address [facility] Co de Phone Number KATHI[address] [place] [address] * POCT glucose (04/29/2025 11:27 AM CDT) Glucose, POC 116 70 - 199 mg/dL Comment:Testing performed by : [address] [address] Blood 04/29/2025 11:2 7 AM CDT 04/29/2025 11:27 AM CDT us Jerel Hickey MD LAB POCT ORDERABLES - DEVICE Final Result Performing Organization Address [facility] Co de Phone Number [address] [employer] [place], [place] [address] * POCT glucose (04/29/2025 7:39 AM CDT) Glucose, POC 111 70 - 199 mg/dL Comment:Testing performed by : [address] [address] Blood 04/29/2025 7:39 AM CDT 04/29/2025 7:39 AM CDT us Jerel Hickey MD LAB POCT ORDERABLES - DEVICE Final Result Performing Organization Address [facility] de Phone Number LISA [address] [place] [address] * (ABNORMAL) Hemoglobin and hematocrit (04/29/2025 6:37 AM CDT) Hgb 9.1(L) 11.9 - 15.5 g/dL Comment:Testing performed by : [address], [address] Hct 26.7(L) 35.6 - 45.5 % LISA Comment:Testing performed by : [address], [address] Blood 04/29/2025 6:37 AM CDT 04/29/2025 6:49 AM CDT us Carlie Leon NP LAB BLOOD ORDERABLES Final Result Performing Organization Address [facility] de Phone Number KATHI[address] [address] * POCT glucose (04/29/2025 4:52 AM CDT) Glucose, POC 118 70 - 199 mg/dL Comment:Testing performed by : [address] [address] Glucose comment 1 RN/MD Notified LISA Comment:Testing performed by : [address] [address] Blood 04/29/2025 4:52 AM CDT 04/29/2025 4:52 AM CDT us Cristino Bishop MD LAB POCT ORDERABLES - DEVICE Final Result Performing Organization Address [facility]/State/ZIP Co de Phone Number [place] [address] [facility] Department [place] [address] * (ABNORMAL) eGFR (04/29/2025 2:28 AM CDT) [facility] eGFR 56(L) >=60 mL/min/1. 73 m2 Comment: [...] was last reviewed 2021. Testing performed by: [address] [address] Blood 04/29/2025 2:28 AM CDT 04/29/2025 2:51 AM CDT us Carlie Leon NP LAB BLOOD ORDERABLES Final Result [place] [id number] [facility] [place] [address] * Differential, auto (04/29/2025 2:28 AM CDT) [facility] Neutrophil abs 2.79 1.50 - 6.50 K/cumm Comment:Testing performed by : [address] [address] Imm gran abs 0.02 0.00 - 0.10 K/cumm LISA Comment:Testing performed by : [address] [address] Lymphocyte abs 1.21 0.80 - 3.30 K/cumm [facility] Comment:Testing performed by : [address] [address] Monocyte abs 0.21 0.20 - 0.80 K/cumm [facility] Comment:Testing performed by : [address] [address] Eosinophil abs 0.00 0.00 - 0.50 K/cumm [facility] Comment:Testing performed by : [address], [place]., [address] Basophil abs 0.02 0.00 - 0.10 K/cumm [facility] Comment:Testing performed by : [address] [address] Neutrophil pct 65.6 % [facility] Comment: Interpretive Data Percent cell count reference ranges are not reported, since discordance with absolute values may lead to misinterpretation of CBC data. Current Interpretive Data was last revised on 2017. Testing performed by: [address] [address] Imm gran pct 0.5 % [facility] Comment: Interpretive Data Percent cell count reference ranges are not reported, since discordance with absolute values may lead to misinterpretation of CBC data. Current Interpretive Data was last revised on 2017. Testing performed by: [address] [address] Lymphocyte pct 28.5 % [facility] Comment: Interpretive Data Percent cell count reference ranges are not reported, since discordance with absolute values may lead to misinterpretation of CBC data. Current Interpretive Data was last revised on 2017. Testing performed by: [address] [address] Monocyte pct 4.9 % [facility] Comment: Interpretive Data Percent cell count reference ranges are not reported, since discordance with absolute values may lead to misinterpretation of CBC data. Current Interpretive Data was last revised on 2017. Testing performed by: [address] [address] Eosinophil pct 0.0 % [facility] Comment: Interpretive Data Percent cell count reference ranges are not reported, since discordance with absolute values may lead to misinterpretation of CBC data. Current Interpretive Data was last revised on 2017. Testing performed by: [address] [address] Basophil pct 0.5 % [facility] ANDREW Comment: Interpretive Data Percent cell count reference ranges are not reported, since discordance with absolute values may lead to misinterpretation of CBC data. Current Interpretive Data was last revised on 2017. Testing performed by: [address] [address] Blood 04/29/2025 2:28 AM CDT 04/29/2025 2:51 AM CDT Carlie Leon NP LAB BLOOD ORDERABLES Final Result [facility] Department [place] [address] * (ABNORMAL) CBC with auto differential (04/29/2025 2:28 AM CDT) WBC 4.25 3.80 - 9.90 K/cumm Comment:Testing performed by : [address] [address] Hgb 10.0(L) 11.9 - 15.5 g/dL LISA ANDREW Comment:Testing performed by : [address] [address] Hct 29.5(L) 35.6 - 45.5 % LISA Comment:Testing performed by : [address] [address] Plt 217 150 - 400 K/cumm LISA Comment:Testing performed by : [address] [address] MPV 10.5 9.1 - 12.3 fL LISA ANDREW Comment:Testing performed by : [address] [address] RBC 3.07(L) 3.90 - 5.20 M/cumm [facility] AND[facility]W Comment:Testing performed by : [address] [address] MCV 96.1 81.3 - 96.4 fL LISA ANDREW Comment:Testing performed by : [address] [address] MCH 32.6 27.1 - 33.3 pg LISA ANDREW Comment:Testing performed by : [address] [address] MCHC 33.9 32.3 - 35.7 g/dL LISA ANDREW Comment:Testing performed by : [address] [address] RDW CV 13.5 11.1 - 14.9 % [facility] ANDREW Comment:Testing performed by : [address] [address] RDW SD 48.0 35.7 - 48.1 fL [facility] ANDREW Comment:Testing performed by : [address] [address] NRBC abs 0.00 0.00 - 0.01 K/cumm LISA ANDREW Comment:Testing performed by : [address] [address] Blood 04/29/2025 2:28 AM CDT 04/29/2025 2:51 AM CDT us Carlie Leon INSTRUCTIONAL WRITER LAB BLOOD ORDERABLES Final Result LISA [address] [facility] Department of Laboratories [place], [place] [id number] * (ABNORMAL) Basic metabolic panel (04/29/2025 2:28 AM CDT) Sodium 133(L) 135 - 145 mmol/L Comment:Testing performed by : [address] [address] Potassium, pl 4.9 3.3 - 4.9 mmol/L LISA ANDREW Comment: Hemolyzed; Potassium value may be falsely elevated by as much as 1.0 mmol/L. Suggest redraw and reanalysis. Testing performed by: [address] [address] Chloride 102 97 - 110 mmol/L LISA Comment:Testing performed by : [address] [address] CO2 20(L) 22 - 32 mmol/L LISA Comment:Testing performed by : [address] [address] Anion gap 11 2 - 15 mmol/L LISA Comment:Testing performed by : [address] [address] BUN 44(H) 6 - 25 mg/dL LISA Comment:Testing performed by : [address] [address] Creatinine 1.03 0.60 - 1.10 mg/dL LISA Comment:Testing performed by : [address] [address] Glucose 144 70 - 199 mg/dL LISA [...] was last revised 2022. Testing performed by: [address] [address] Calcium 9.0 8.5 - 10.3 mg/dL LISA Comment:Testing performed by : [address] [address] Blood 04/29/2025 2:2 8 AM CDT 04/29/2025 2:51 AM CDT us Carlie Leon INSTRUCTIONAL WRITER LAB BLOOD ORDERABLES Final Result LISA [address] [facility] Department [place] [address] * POCT glucose (04/29/2025 12:35 AM CDT) [facility] Glucose, POC 136 70 - 199 mg/dL Comment:Testing performed by : [address] [address] Glucose comment 1 RN/MD Notified LISA Comment:Testing performed by : [address] [address] Blood 04/29/2025 12:3 5 AM CDT 04/29/2025 12:35 AM CDT us Cristino Bishop MD LAB POCT ORDERABLES - DEVICE Final Result Performing Organization Address City/[facility] Co de Phone Number [address] [place] [address] * Hemoglobin A1c (04/27/2025 3:04 PM CDT) [facility] Hgb A1C 5.4 4.0 - 5.6 % Comment:Testing performed by : [address] [address] Estimated Average Glucose 108 mg/dL LISA Comment: The ADA recommends reporting an estimated Average Glucose (eAG) with all Hemoglobin A1c results using the equation derived from a study of 507 normal and diabetic adults. Minority populations were underrepresented and children were not included. (Diabetes Care 31:8662-0939, 2008). The eAG is not equivalent to a fasting glucose. Testing performed by: [address] [address] Blood 04/27/2025 3:04 PM CDT 04/27/2025 6:07 PM CDT us Carlie Leon NP LAB BLOOD ORDERABLES Final Result Performing Organization Address City/[facility]/ZIP Co de Phone Number [address] [place] [address] * (ABNORMAL) POCT lipid panel (11/27/2024 9:38 [...] 1 or 2 Site (06/08/2015 2:48 PM HVAC SERVICE MANAGER) Anatomical Region Laterality Modality Body N/A Radiographic Keyla ging 06/08/2015 2:48 PM HVAC SERVICE MANAGER Impressions 06/08/2015 4:50 PM HVAC SERVICE MANAGER Bone mineral density in the lumbar spine, [...] PM [facility] [EOD] Narrative 06/08/2015 4:50 PM HVAC SERVICE MANAGER HISTORY: 65 year old postmenopausal female with given history of primary hyperparathyroidism. Current Height: 62 inches Maximum Height: 63 inches Weight: 253 pounds RISK FACTORS: Chronic antacid use. Hyperparathyroidism. COMPARISON(S): None HOSPICE MUSIC THERAPIST/MODEL: [employer] (S/N [id number]) FINDINGS: AP lumbar spine L1-L4 Total BMD is 0.918 g/tm8X-tipgs is -1.2 Left Hip Total BMD is 0.771 g/wo6L-ggscx is -1.4 Neck BMD is 0.642 g/gi0M-pclxv is -1.9 Left forearm BMD in the radius 33% is 0.559 g/tl6Z-osuvc is -2.2 Procedure Note Provider, MD Colleen - 12/14/2020 HISTORY: 65 year old postmenopausal female with given history of primary hyperparathyroidism. Current Height: 62 inches Maximum Height: 63 inches Weight: 253 pounds RISK FACTORS: Chronic antacid use. Hyperparathyroidism. COMPARISON(S): None HOSPICE MUSIC THERAPIST/MODEL: [employer] (S/N [id number]) FINDINGS: AP lumbar spine L1-L4 Total BMD is 0.918 g/cp5F-ztuyg is -1.2 Left Hip Total BMD is 0.771 g/ek9L-kzndf is -1.4 Neck BMD is 0.642 g/fp4W-wrhdm is -1.9 Left forearm BMD in the radius 33% is 0.559 g/tm9L-vpnat is -2.2 IMPRESSION: Bone mineral density in [...] 04:46 PM BM [EOD] Cirilo Pedersen MD [facility] DXA PROCEDURES Final Resul t from Last 3 Months or Most Recently Relevant to Health Maintenance Insurance [employer] MEDICARE [facility] [id number] UHC MEDICARE ADVANTAGE [facility] MEDICARE NATALIE LOPES [id number] [employer] MEDICARE Advance Directives For more information, please contact: [phone] Documents on File Type Date Recorded Patient Slasher Tender Helper Expl anation Power of [employer]room Foundry Laborer ADVANCE DIRECTIVE 10/18/2024 9:27 AM POLST - Phys Order for PT Preferences ADVANCE DIRECTIVE 09/04/2019 1:16 PM Power of [employer] Laborer-Medical ADVANCE DIRECTIVE 07/16/2019 12:00 AM POW ER OF DATA ARCHITECT MANAGER MEDICAL * Full Code (Latest Code Status on File) Date Activated Date Inactivated Comments 07/18/2025 12:01 PM 07/19/2025 7:14 PM * Full Code Date Activated Date Inactivated Comments 04/27/2025 5:49 PM 04/30/2025 5:49 PM * Full Code Date Activated Date Inactivated Comments 10/30/2024 5:50 PM 11/09/2024 8:59 PM * Full Code Date Activated Date Inactivated Comments 10/22/2024 4:59 PM 10/28/2024 6:27 PM * Full Code Date Activated Date Inactivated Comments 10/14/2024 8:43 PM 10/17/2024 7:52 PM Care Teams Job Captain Relationship Specialty Start Date End Date Ellen Rowley MD [facility] [place] [address] PCP - General Family Medicine 02/09/22 Kandi Fuentes MD [address] [place] [address] Consulting Physician Cardiology 04/30/25 Javier Pham MD [address] [place] [address] Consulting Physician Pulmonary Disease 04/30/25
--- OUTSIDE RECORDS SUMMARY | 2025-07-30 09:23 | XMS_ITS | Encounter Summary ---
Author Organization [facility] Healthcare Address [address] [place] [address] Care Team Providers Care Conservation Biology Professor Name Role Phone Ellen Rowley MD Primary Care Provider Sam Young MD Unavailable [phone] Javier Pham MD Unavailable [phone] Encounter Details Date Type Department Care Team (Late st Contact Info) Description 06/30/2025 Telephone [facility] Medical Group Cardiology [address] [facility] [address] [place] [address] Sam Young MD [address] [place] [address] [address] Social History Tobacco Use Types Packs/Day Years [...] How often do you attend chur or adventism services? Never 10/31/2024 Do you belong to [...] any time in the past 12 m [facility], were you homeless or living in a [place] facility (including now)? No 11/05/2024 Social Connection and Isolation Panel Answer Date Recorded In a typical week, how many times do you talk on the phone with family, friends, or neighbors? More than three times a week 04/28/2025 How often do you get togethe r with friends or relatives? More than three times a week 04/28/2025 How often do you attend chur ch or adventism services? Never 04/28/2025 Do you belong to [...] you have a drink containing alcohol? Never 06/30/2025 Q2: How many drinks containi ng alcohol do you have on a typical day when you are drinking? Patient does not drink Q3: How often do you have si x or more drinks on one occasion? Never 06/30/2025 Overall Financial Resource Strain (CARDIA) Answe r [...] any time in the past 12 m [facility], were you homeless or living in a [place] (including now)? No 04/28/2025 [facility] Utilities Answer Date Recorded In the past 12 months has th e electric, gas, oil, or water company threatened to shut off services in your home? No 04/28/2025 Personal Safety Answer Date Recorded Have you ever been in or are you currently in a harmful physical or emotional relationship or is someone making you feel afraid or unsafe? Denies 06/30/2025 Comments No Sex and Gender Information Value Date Recorded Sex Assigned at Not on file Legal Sex Female 5:32 PM HOME SERVICE TECHNICIAN Gender Identity Not on file Sexual Orientation Not on file documented as of this encounter Miscellaneous Notes * Telephone Encounter - Mandie Chirinos - 06/30/2025 1:47 PM CST Sabrina called back again and asked if Dr. Young was available for a Peer to Peer today by 3pm that needed to be scheduled at [phone]. I explained to her that Dr. Young is in a different office today and P2P is no likely today by 3pm. I informed her that I sent her first message about theaddendum to his office note. She then gave me a number for an appeal in case the code was denied [phone]. SERVICE TECHNICIAN * Telephone Encounter - Mandie Chirinos - 06/30/2025 8:58 AM CST Jeff, Please ask Dr. Young to put an addendum on his last office note to state that [address] is a safe procedure for the patient to have. Her insurance company is requesting this. Please see the note below and if you have any questions let me know. I need the note today because the procedure is scheduled for 07-04-2025. I received a fax from Tracie @ [employer] and she had some additional questions for me about the cpt code 78093 I answered the questions but she also needs an addendum note from Dr. Young stating that this is a safe procedure for the patient to have. I explained to Tracie I will reach outto Jeff who works with Dr. Young and ask him to addend his note to add patient is safe for the procedure and then fax it over to her at [phone]. 06/30/2025 ashkan. SERVICE TECHNICIAN documented in this encounter Plan of Treatment Not on file documented as of this encounter Visit Diagnoses Not on filedocumented in this encounter Care Teams Conservation Biology Professor Relationship Specialty Start Date End Date Ellen Rowley MD [address] [place] [address] PCP - General Family Medicine 02/09/22 Sam Young MD [address] [place] [id number] Consulting Physician Cardiology 04/30/25 Javier Pham MD [address] [facility] [address] [place] [address] Consulting Physician Pulmonary Disease 04/30/25 documented as of this encounter
[2025-08-01 15:09] LABS: Thyroglobulin by IMA YES YES
== END 2025-07-30 09:19 | disposition home or self-care (01) ==
PROVIDERS: Visit Provider Internal Medicine
DX: E03.9 Hypothyroidism, unspecified (principal)
CPT/HCPCS: 84432; 86800